=== PATIENT | female | born 1950 | race Caucasian/White ===

== ENCOUNTER 2019-02-11 10:25 | Emergency (ER) | payer MEDICARE, OTHER ==
[~2019-02-11] VITALS: Ht 160 cm; Wt 81.7 kg
--- OUTSIDE RECORDS SUMMARY | ~2019-02-11 | XMS | Encounter Summary ---
Demographics + + + | Address | [address] | | | [place] [address] | + + + | Home Phone | | + + + | Preferred Language | Unknown | + + + | Marital Status | | + + + | Congregational Affiliation | CAT | + + + | Race | White | + + + | Ethnic Group | Not or | + + + Author + + + | Author | [facility] | + + + | Organization | [facility] | + + + | Address | Unknown | + + + | Phone | Unavailable | + + + Support + + + + + | Name | Relationship | Address | Phone | + + + + + | Roxana Bo | ECON | [address] | | | | | [place] | | | | | [address] | | + + + + + Care Team Providers + +------+ + | Care Guide Tour Name | Role | Phone | + +------+ + | Ventura Carrasquillo MD | PCP | | + +------+ + Reason for Visit + + + | Reason | Comments | + + + | Follow-up visit | | + + + Encounter Details +--------+---------+ + + + | Date | Type | Department | Care Team | Description | +--------+---------+ + + + | 01/30/ | Office | Digestive Health | Lake Ontiveros MD | Autoimmune hepatitis | | 2013 | Visit | Center at [facility] [address] | [address] | (HCC) (Primary Dx); | | | | [address] | [facility] [place] | Primary biliary | | | | Mailcode: OC8D | [address] | cirrhosis (HCC) | | | | [facility] | [phone] | | | | | and Healing, | | | | | | [address] | | | | | | [place], [place] | | | | | | [address] | | | | | | [phone] | | | +--------+---------+ + + + Social History + +-------+ [...] + + documented as of this encounter Last Filed Vital Signs + + + + + | Vital Sign | Reading | Time Taken | Comments | + + + + + | Blood Pressure | 167/90 | 01/30/2014 1:07 PM | | | | | PDT | | + + + + + | Pulse | 76 | 01/30/2014 1:07 PM | | | | | PDT | | + + + + + | Temperature | 36.7 C (98.1 F) | 01/30/2014 1:07 PM | | | | | PDT | | + + + + + | Respiratory Rate | 17 | 01/30/2014 1:07 PM | | | | | PDT | | + + + + + | Oxygen Saturation | - | - | | + + + + + | Inhaled Oxygen | - | - | | | Concentration | | | | + + + + + | Weight | 74.5 kg (164 lb 4.8 | 01/30/2014 1:07 PM | | | | oz) | PDT | | + + + + + | Height | 160 cm (5' 3") | 01/30/2014 1:07 PM | | | | | PDT | | + + + + + | Body Mass Index | 29.1 | 01/30/2014 1:07 PM | | | | | PDT | | + + + + + documented in this encounter Progress Notes Lake Ontiverso MD - 01/30/2014 1:04 PM PDTFormatting of this note might be different from bharat power. HEPATOLOGY FOLLOW UP VISIT Diagnoses: 1. 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 LYDIA at 1:320 and AMA 1:1280 1.2. Viral serologies are all negative. 1.3. Liver biopsy more predominantly autoimmune hepatitis vs. PBC. No fibrosis. Mild steato sis 1.4 Now on Ursodiol 900mg a day and Imuran 50mg a day with normalization of liver tests 2. Obesity. 3. Labile hypertension. 4. Possible mild hyperlipidemia. 5. Joint complaints. 6. Hysterectomy, sinus surgery, and dental implant. Current Outpatient Prescriptions Medication Sig alendronate-vitamin D 70-2,800 mg-unit Oral Tablet Take 1 Tab by mouth every seven days . azaTHIOprine 50 mg oral tablet Take 1 tablet by mouth once daily. Administer after meal s. cephALEXin 500 mg Oral capsule Take 4 caps by mouth prior to procedure. csqzsavgenqb-gwrktmm-hdhacem-folic acid chewable 200-0.4 mg Oral Tablet, Chewable Take 2 Tabs by mouth once daily. hhyiyyeecstk-vnlnexd-pdyh-lutein (CENTRUM SILVER ULTRA WOMEN'S) Oral Tablet Take 1 Tab by mouth once daily. Boston-3 Fatty Acids-Vitamin E (FISH OIL) 1,000 mg Oral capsule Take 2 Caps by mouth onc e daily. ursodiol 300 mg oral capsule Take 3 capsules by mouth once daily at bedtime. No current facility-administered medications for this visit. Allergy: No Known Allergies Subjective: Ms. Bo is seen in Hepatology clinic for follow up of Autoimmune Hepatitis and Primary Biliary Cirrhosis. She states that her current symptoms are fatigue. She denies fluid accumulation in feet/ankles, fluid accumulation in abdomen, blood in bowel movements or black tarry bm's and memory or concentration changes. Review of Systems: All other systems negative. Social History: Currently smoking: no Current alcohol use: no Currently employed: yes Good social support: yes Objective: BP 167/90 | Pulse 76 | Temp (Src) 36.7 C (98.1 F) (Oral) | RR 17 | Ht 1.6 m (5' 3") | W t 74.526 kg (164 lb 4.8 oz) | BMI 29.11 kg/(m^2) General: Alert, NAD. HEENT: No muscle wasting, sclerae anicteric. Respiration: Normal CTAB, and good air exchange. Cardiac: Regular rate and rhythm. Abdomen: Soft, non-distended, normal bowel sounds, no hepatosplenomegaly, no fluid wave, no other masses noted. Neuro: Normal, alert with no asterixis. Psych: Normal speech pattern and thought process linear. Extremities: Normal, no edema, or skin discolorations. Skin: Warm and dry without rashes, lesions or spider hemangomota. Laboratory Data: Recent Labs 07/01/13 0941 10/04/13 1044 01/04/14 0945 NA 142 142 139 CR 0.84 0.86 0.77 AST 16 22 20 ALT 8 11 13 TBILI 0.8 0.7 0.5 ALB 3.8 3.8 3.6 WBC 5.7 4.8 5.4 HB 14.6 14.7 14.2 PLT 36 373 342 Assessment/Plan: Doing well from a liver standpoint. No evidence of liver disease progression. On low dose I muran and ursodiol her liver tests continue to be normal. Plan 1) cont Imuran 50mg a day 2) reduce ursodiol to 600mg DAILY 3) m7xchlaq liver set, CBC, plts, diff, INR 4) RTC in 1 yr Counseling Time: I spent more than 25 minutes with the patient. Greater than 50% of the t alecia was spent in education and counseling the patient regarding management of medications an d associated toxicities.. LAKE ONTIVEROS MD documented in this encoun ter Plan of Treatment +--------+---------+ + + + | Date | Type | Specialty | Care Team | Description | +--------+---------+ + + + | 01/26/ | Office | Hepatology | Lake Ontiveros MD | | | 2020 | Visit | | [address] | | | | | | [place], [place] | | | | | | [address] | | | | | | [phone] | | | | | | | | +--------+---------+ + + + documented as of this encounter Visit Diagnoses + + | Diagnosis | + + | Autoimmune hepatitis (HCC) - Primary Autoimmune hepatitis | + + | Primary biliary cirrhosis (HCC) Biliary cirrhosis | + + documented in this encounter
--- OUTSIDE RECORDS SUMMARY | ~2019-02-11 | XMS | Encounter Summary ---
Demographics + + + | Address | [address] | | | [place] [address] | + + + | Home Phone | | + + + | Preferred Language | Unknown | + + + | Marital Status | | + + + | Catholic Affiliation | CAT | + + + | Race | White | + + + | Ethnic Group | Not or | + + + Author + + + | Author | [facility] | + + + | Organization | [facility] | + + + | Address | Unknown | + + + | Phone | Unavailable | + + + Support + + + + + | Name | Relationship | Address | Phone | + + + + + | Roxana Bo | ECON | [address] | | | | | [place] | | | | | [address] | | + + + + + Care Team Providers + +------+ + | Care Salary Manager Name | Role | Phone | + +------+ + | Ventura Carrasquillo MD | PCP | | + +------+ + Encounter Details +--------+ + + + + | Date | Type | Department | Care Team | Description | +--------+ + + + + | 09/08/ | MyChart | Digestive Health | Lake Dennis MD | RE: Test results | | 2018 | Encounter | Center at [facility] [address] | [address] | | | | | [address] | [place], [place] | | | | | Mailcode: OC8D | [address] | | | | | [facility] | [phone] | | | | | and Healing, | | | | | | [address] | | | | | | [place], [place] | | | | | | [address] | | | | | | [phone] | | | +--------+ + + + + Social History + +-------+ +--------+------+ | Tobacco Use | Types | Packs/Day | Years | Date | | | | | Used | | + +-------+ +--------+------+ | Never Smoker | | | | | + +-------+ +--------+------+ + +---+---+---+ | Smokeless Tobacco: | | | | | Never Used | | | | + +---+---+---+ + + +---------+ + | Alcohol Use [...] [address] | | | | | | [place], [place] | | | | | | [address] | | | | | | [phone] | | | | | | | | +--------+---------+ + + + documented as of this encounter Procedures + +--------+ + + + | Procedure Name | Priori | Date/Time | Associated Diagnosis | Comments | | | ty | | | | + +--------+ + + + | COMPLETE METABOLIC | Routin | 09/01/2017 | | Results for this | | SET | e | | | procedure are in the | | (NA,K,CL,CO2,BUN,CRE | | | | results section. | | AT,GLUC,CA,AST,ALT,B | | | | | | JONH TOTAL,ALK | | | | | | PHOS,ALB,PROT TOTAL) | | | | | + +--------+ + + + | CBC ONLY | Routin | 09/01/2017 | | Results for this | | | e | | | procedure are in the | | | | | | results section. | + +--------+ + + + documented in this encounter Results COMPLETE METABOLIC SET (NA,K,CL,CO2,BUN,CREAT,GLUC,CA,AST,ALT,BILI TOTAL,ALK PHOS,ALB,PROT TOTAL) (09/01/2017) + +---------+ + + + | Component | Value | Ref Range | Performed | Pathologist | | | | | At | Signature | + +---------+ + + + | GLUCOSE, | 79 | mg/dL | NON [facility] | | | PLASMA | | | LAB | | | (LAB) | | | | | + +---------+ + + + | BUN, PLASMA | 12 | mg/dL | NON [facility] | | | (LAB) | | | LAB | | + +---------+ + + + | CREATININE | 0.73 | mg/dL | NON [facility] | | | PLASMA | | | LAB | | | (LAB) | | | | | + +---------+ + + + | ALBUMIN, | 3.8 | g/dL | NON [facility] | | | PLASMA | | | LAB | | | (LAB) | | | | | + +---------+ + + + | BILIRUBIN | 0.7 | Transcutaneous | NON [facility] | | | TOTAL | | Bilirubinometer | LAB | | + +---------+ + + + | ALK PHOS | 176 (H) | U/L | NON [facility] | | | | | | LAB | | + +---------+ + + + | AST(SGOT) | 24 | U/L | NON [facility] | | | | | | LAB | | + +---------+ + + + | SODIUM, | 140 | mmol/L | NON [facility] | | | PLASMA | | | LAB | | | (LAB) | | | | | + +---------+ + + + | POTASSIUM, | 3.8 | mmol/L | NON [facility] | | | PLASMA | | | LAB | | | (LAB) | | | | | + +---------+ + + + | ALT (SGPT) | 13 | U/L | NON [facility] | | | | | | LAB | | + +---------+ + + + + + | Specimen | + + | Blood | + + + +---------+ + + | Performing | Address | City/State/Zipcode | Phone Number | | Organization | | | | + +---------+ + + | NON [facility] | | | | + +---------+ + + CBC ONLY (09/01/2017) + +-------+ + + + | Component | Value | Ref Range | Performed | Pathologist | | | | | At | Signature | + +-------+ + + + | WHITE CELL | 4.6 | K/cu mm | NON [facility] | | | COUNT | | | LAB | | + +-------+ + + + | RED CELL | 4.74 | M/cu mm | NON [facility] | | | COUNT | | | LAB | | + +-------+ + + + | HEMOGLOBIN | 14.4 | g/dL | NON [facility] | | | | | | LAB | | + +-------+ + + + | HEMATOCRIT | 43.6 | % | NON [facility] | | | | | | LAB | | + +-------+ + + + | PLATELET | 348 | K/cu mm | NON [facility] | | | COUNT | | | LAB | | + +-------+ + + + + + | Specimen | + + | Blood | + + + +---------+ + + | Performing | Address | City/State/Zipcode | Phone Number | | Organization | | | | + +---------+ + + | NON [facility] | | | | + +---------+ + + documented in this encounter Visit Diagnoses Not on filedocumented in this encounter"
--- OUTSIDE RECORDS SUMMARY | ~2019-02-11 | XMS | Encounter Summary ---
Demographics + + + | Address | [address] | | | [place] [address] | + + + | Home Phone | | + + + | Preferred Language | Unknown | + + + | Marital Status | | + + + | Restorationism Affiliation | CAT | + + + | Race | White | + + + | Ethnic Group | Not or | + + + Author + + + | Author | [facility] | + + + | Organization | [facility] | + + + | Address | Unknown | + + + | Phone | Unavailable | + + + Support + + + + + | Name | Relationship | Address | Phone | + + + + + | Roxana Bo | ECON | [address] | | | | | [place] | | | | | [address] | | + + + + + Care Team Providers + +------+ + | Care Engineer Remote Control Diesel Name | Role | Phone | + +------+ + | Ventura Carrasquillo MD | PCP | | + +------+ + Encounter Details +--------+ + + + + | Date | Type | Department | Care Team | Description | +--------+ + + + + | 01/16/ | MyChart | Digestive Health | Lake Dennis MD | RE: Medication | | 2014 | Encounter | [place] [address] [address] | [address] | Inquiry | | | [address] | [place], [place] | | | | | Mailcode: OC8D | [address] | | | | | [facility] | [phone] | | | | | and Healing, | | | | | | [address] | | | | | | [place], [place] | | | | | | [address] | | | | | | [phone] | | | +--------+ + + + [...] [address] | | | | | | [place] | | | | | | [address] | | | | | | [phone] | | | | | | | | +--------+---------+ + + + documented as of this encounter Visit Diagnoses Not on filedocumented in this encounter"
--- OUTSIDE RECORDS SUMMARY | ~2019-02-11 | XMS | Encounter Summary ---
Demographics + + + | Address | [address] | | | [place] [address] | + + + | Home Phone | | + + + | Preferred Language | Unknown | + + + | Marital Status | | + + + | Orthodox Affiliation | CAT | + + + | Race | White | + + + | Ethnic Group | Not or | + + + Author + + + | Author | [facility] | + + + | Organization | [facility] | + + + | Address | Unknown | + + + | Phone | Unavailable | + + + Support + + + + + | Name | Relationship | Address | Phone | + + + + + | Roxana Bo | ECON | [address] | | | | | [place] | | | | | [address] | | + + + + + Care Team Providers + +------+ + | Care Machine Wedger Name | Role | Phone | + +------+ + | Ventura Carrasquillo MD | PCP | | + +------+ + Encounter Details +--------+ + + + + | Date | Type | Department | Care Team | Description | +--------+ + + + + | 11/14/ | MyChart | Digestive Health | Lake Dennis MD | RE: Request for Info | | 2013 | Encounter | Center at [facility] [address] | [address] | | | | | [address] | [place], [place] | | | | | Mailcode: OC8D | [address] | | | | | [facility] | [phone] | | | | | and Healing, | | | | | | [address] | | | | | | [place], [place] | | | | | | [address] | | | | | | [phone] | | | +--------+ + + + [...] [address] | | | | | | [place] | | | | | | [address] | | | | | | [phone] | | | | | | | | +--------+---------+ + + + documented as of this encounter Visit Diagnoses Not on filedocumented in this encounter"
--- OUTSIDE RECORDS SUMMARY | ~2019-02-11 | XMS | Encounter Summary ---
Demographics + + + | Address | [address] | | | [place] [address] | + + + | Home Phone | | + + + | Preferred Language | Unknown | + + + | Marital Status | | + + + | Scientologist Affiliation | CAT | + + + | Race | White | + + + | Ethnic Group | Not or | + + + Author + + + | Author | [facility] | + + + | Organization | [facility] | + + + | Address | Unknown | + + + | Phone | Unavailable | + + + Support + + + + + | Name | Relationship | Address | Phone | + + + + + | Roxana Bo | ECON | [address] | | | | | [place] | | | | | [address] | | + + + + + Care Team Providers + +------+ + | Care Processor Inspector Name | Role | Phone | + [...] | 2019 | Encounter | Center at [facility] [address] | [address] | | | | | [address] | [place], [place] | | | | | Mailcode: OC8D | [address] | | | | | [facility] | [phone] | | | | | and [place], | | | | | | [address] | | | | | | [place], [place] | | | | | | [address] | | | | | | [phone] | | | +--------+ + + + [...] | | 2019 | Visit | | [address] | | | | | | [place], [place] | | | | | | [address] | | | | | | [phone] | | | | | | | | +--------+---------+ + + + documented as of this encounter Visit Diagnoses Not on filedocumented in this encounter"
--- OUTSIDE RECORDS SUMMARY | ~2019-02-11 | XMS | Encounter Summary ---
Demographics + + + | Address | [address] | | | [place] [address] | + + + | Home Phone | | + + + | Preferred Language | Unknown | + + + | Marital Status | | + + + | Taoist Affiliation | CAT | + + + | Race | White | + + + | Ethnic Group | Not or | + + + Author + + + | Author | [facility] | + + + | Organization | [facility] | + + + | Address | Unknown | + + + | Phone | Unavailable | + + + Support + + + + + | Name | Relationship | Address | Phone | + + + + + | Roxana Bo | ECON | [address] | | | | | [place] | | | | | [address] | | + + + + + Care Team Providers + +------+ + | Care Cocoa Press Operator Name | Role | Phone | + +------+ + | Ventura Carrasquillo MD | PCP | | + +------+ + Reason for Visit + + + | Reason | Comments | + + + | Refill Request | ursodiol | + + + Encounter Details +--------+--------+ + + + | Date | Type | Department | Care Team | Description | +--------+--------+ + + + | 03/25/ | Refill | Digestive Health | Lake Dennis MD | Refill Request | | 2010 | | [place] [phone] | [address] | (ursodiol) | | | | [address] | [place], [place] | | | | | Mailcode: OC8D | [address] | | | | | [facility] | [phone] | | | | | and Healing, | | | | | | [address] | | | | | | [place], [place] | | | | | | [address] | | | | | | [phone] | | | +--------+--------+ + + + [...] [address] | | | | | | [place], [place] | | | | | | [address] | | | | | | [phone] | | | | | | | | +--------+---------+ + + + documented as of this encounter Visit Diagnoses Not on filedocumented in this encounter"
--- OUTSIDE RECORDS SUMMARY | ~2019-02-11 | XMS | Encounter Summary ---
Demographics + + + | Address | [address] | | | [place] [address] | + + + | Home Phone | | + + + | Preferred Language | Unknown | + + + | Marital Status | | + + + | Sabianism Affiliation | CAT | + + + | Race | White | + + + | Ethnic Group | Not or | + + + Author + + + | Author | [facility] | + + + | Organization | [facility] | + + + | Address | Unknown | + + + | Phone | Unavailable | + + + Support + + + + + | Name | Relationship | Address | Phone | + + + + + | Roxana Bo | ECON | [address] | | | | | [place] | | | | | [address] | | + + + + + Care Team Providers + +------+ + | Care Control Systems Technician Name | Role | Phone | + +------+ + | Ventura Carrasquillo MD | PCP | | + +------+ + Reason for Visit + + + | Reason | Comments | + + + | Blood Test Results | | + + + Encounter Details +--------+ + + + + | Date | Type | Department | Care Team | Description | +--------+ + + + + | 01/07/ | Documentati | Digestive Health | Lake Dennis MD | Blood Test Results | | 2017 | on | Center at [facility] [address] | [address] | | | | | [address] | [place], [place] | | | | | Mailcode: OC8D | [address] | | | | | [facility] | [phone] | | | | | and Healing, | | | | | | [address] | | | | | | [place], [place] | | | | | | [address] | | | | | | [phone] | | | +--------+ + + + [...] | 2019 | Visit | | [address] | | | | | | [place], [place] | | | | | | [address] | | | | | | [phone] | | | | | | | | +--------+---------+ + + + documented as of this encounter Procedures + +--------+ + + + | Procedure Name | Priori | Date/Time | Associated Diagnosis | Comments | | | ty | | | | + +--------+ + + + | COMPLETE METABOLIC | Routin | 01/01/2017 | | Results for this | | SET | e | | | procedure are in the | | (NA,K,CL,CO2,BUN,CRE | | | | results section. | | AT,GLUC,CA,AST,ALT,B | | | | | | JONH TOTAL,ALK | | | | | | PHOS,ALB,PROT TOTAL) | | | | | + +--------+ + + + | CBC ONLY | Routin | 01/01/2017 | | Results for this | | | e | | | procedure are in the | | | | | | results section. | + +--------+ + + + documented in this encounter Results COMPLETE METABOLIC SET (NA,K,CL,CO2,BUN,CREAT,GLUC,CA,AST,ALT,BILI TOTAL,ALK PHOS,ALB,PROT TOTAL) (01/01/2017) + +---------+ + + + | Component | Value | Ref Range | Performed | Pathologist | | | | | At | Signature | + +---------+ + + + | TOTAL | 7.1 | g/dL | [facility] | | | PROTEIN, | | | LAB - | | | PLASMA | | | [place] | | | (LAB) | | | | | + +---------+ + + + | ALBUMIN, | 3.6 | g/dL | [facility] | | | PLASMA | | | LAB - | | | (LAB) | | | [place] | | + +---------+ + + + | BILIRUBIN | 0.6 | Transcutaneous | [facility] | | | TOTAL | | Bilirubinometer | LAB - | | | | | | [place] | | + +---------+ + + + | ALK PHOS | 153 (H) | U/L | [facility] | | | | | | LAB - | | | | | | [place] | | + +---------+ + + + | AST(SGOT) | 20 [...] +---------+ + + + | BILIRUBIN | 0.1 | mg/dL | [facility] | | | DIRECT | | | LAB - | | | | | | [place] | | + +---------+ + + + + + | Specimen | + + | Blood | + + + + + + + | Performing | Address | City/State/Zipcode | Phone Number | | Organization | | | | + + + + + | [facility] - | [address] | [place], [place] | [phone] | | [place] | | | | + + + + + CBC ONLY (01/01/2017) + +-------+ + + + | Component | Value | Ref Range | Performed | Pathologist | | | | | At | Signature | + +-------+ + + + | WHITE CELL | 5.2 | K/cu mm | [facility] | | | COUNT | | | LAB - | | | | | | [place] | | + +-------+ + + + | RED CELL | 4.60 | M/cu mm | [facility] | | | COUNT | | | LAB - | | | | | | [place] | | + +-------+ + + + | HEMOGLOBIN | 13.8 | g/dL | [facility] | | | | | | LAB - | | | | | | [place] | | + +-------+ + + + | HEMATOCRIT | 42.0 | % | [facility] | | | | | | LAB - | | | | | | [place] | | + +-------+ + + + | PLATELET | 357 | K/cu mm | [facility] | | | COUNT | | | LAB - | | | | | | [place] | | + +-------+ + + + + + | Specimen | + + | Blood | + + + + + + + | Performing | Address | City/State/Zipcode | Phone Number | | Organization | | | | + + + + + | [facility] - | [address] | [place] | [phone] | | [place] | | | | + + + + + documented in this encounter Visit Diagnoses Not on filedocumented in this encounter"
--- OUTSIDE RECORDS SUMMARY | ~2019-02-11 | XMS | Encounter Summary ---
Demographics + + + | Address | [address] | | | [place] [address] | + + + | Home Phone | | + + + | Preferred Language | Unknown | + + + | Marital Status | | + + + | Protestant Affiliation | CAT | + + + | Race | White | + + + | Ethnic Group | Not or | + + + Author + + + | Author | [facility] | + + + | Organization | [facility] | + + + | Address | Unknown | + + + | Phone | Unavailable | + + + Support + + + + + | Name | Relationship | Address | Phone | + + + + + | Roxana Bo | ECON | [address] | | | | | [place] | | | | | [address] | | + + + + + Care Team Providers + +------+ + | Care Rn Corrections Name | Role | Phone | + +------+ + | Ventura Carrasquillo MD | PCP | | + +------+ + Reason for Visit + + + | Reason | Comments | + + + | Lab findings, | add'l questions | | teaching, guidance, | | | and counseling | | + + + Encounter Details +--------+ + + + + | Date | Type | Department | Care Team | Description | +--------+ + + + + | 02/28/ | Telephone | Digestive Health | Lake Dennis MD | Lab findings, | | 2008 | | [place] [address] [address] | [address] | teaching, guidance, | | | | [address] | [place], [place] | and counseling | | | | Mailcode: OC8D | [phone] | (add'l questions ) | | | | [facility] | [phone] | | | | | and Healing, | | | | | | [address] | | | | | | [place], [place] | | | | | | [address] | | | | | | [phone] | | | +--------+ + + + [...] [address] | | | | | | [place], [place] | | | | | | [address] | | | | | | [phone] | | | | | | | | +--------+---------+ + + + documented as of this encounter Visit Diagnoses Not on filedocumented in this encounter"
--- OUTSIDE RECORDS SUMMARY | ~2019-02-11 | XMS | Encounter Summary ---
Demographics + + + | Address | [address] | | | [place] [address] | + + + | Home Phone | | + + + | Preferred Language | Unknown | + + + | Marital Status | | + + + | Hoahaoism Affiliation | CAT | + + + | Race | White | + + + | Ethnic Group | Not or | + + + Author + + + | Author | [facility] | + + + | Organization | [facility] | + + + | Address | Unknown | + + + | Phone | Unavailable | + + + Support + + + + + | Name | Relationship | Address | Phone | + + + + + | Roxana Bo | ECON | [address] | | | | | [place] | | | | | [address] | | + + + + + Care Team Providers + +------+ + | Care Netbackup Admin Name | Role | Phone | + +------+ + | Ventura Carrasquillo MD | PCP | | + +------+ + Encounter Details +--------+ + + + + | Date | Type | Department | Care Team | Description | +--------+ + + + + | 12/13/ | MyChart | Dig[facility]ive [facility] | Lake Dennis MD | RE: Prescription | | 2014 | Encounter | Center at [facility] [address] | [address] | info | | | | [address] | [place], [place] | | | | | Mailcode: OC8D | [address] | | | | | [place] [facility] | [phone] | | | | | and Healing, | | | | | | [address] | | | | | | [place], [place] | | | | | | [address] | | | | | | [phone] | | | +--------+ + + + [...] | 2020 | Visit | | [address] | | | | | | [place] | | | | | | [address] | | | | | | [phone] | | | | | | | | +--------+---------+ + + + documented as of this encounter Visit Diagnoses Not on filedocumented in this encounter"
--- OUTSIDE RECORDS SUMMARY | ~2019-02-11 | XMS | Encounter Summary ---
Demographics + + + | Address | [address] | | | [place] [address] | + + + | Home Phone | | + + + | Preferred Language | Unknown | + + + | Marital Status | | + + + | Caodaism Affiliation | CAT | + + + | Race | White | + + + | Ethnic Group | Not or | + + + Author + + + | Author | [facility] | + + + | Organization | [facility] | + + + | Address | Unknown | + + + | Phone | Unavailable | + + + Support + + + + + | Name | Relationship | Address | Phone | + + + + + | Roxana Bo | ECON | [address] | | | | | [place] | | | | | [address] | | + + + + + Care Team Providers + +------+ + | Care Coach Driver Name | Role | Phone | + +------+ + | Ventura Carrasquillo MD | PCP | | + +------+ + Reason for Visit + + + | Reason | Comments | + + + | Medical Records | C - OUTSIDE LAB: AST, alkaline, bilirubin, protein, albumin, | | Review | ALT, CBC 04/03/2014 | + + + Encounter Details +--------+ + + + + | Date | Type | Department | Care Team | Description | +--------+ + + + + | 04/06/ | Abstract | Dig[facility]ive Health | Lake Dennis MD | Medical Records | | 2013 | | [place] [address] [address] | [address] | Review ([facility] - | | | | [address] | [place], [place] | OUTSIDE LAB: AST, | | | | Mailcode: OC8D | [id number] | alkaline, bilirubin, | | | | [facility] | [phone] | protein, albumin, | | | | and Healing, | | ALT, CBC 04/03/2014) | | | | [address] | | | | | | [place], [place] | | | | | | [address] | | | | | | [phone] | | | +--------+ + + + [...] [address] | | | | | | [place], [place] | | | | | | [address] | | | | | | [phone] | | | | | | | | +--------+---------+ + + + documented as of this encounter Visit Diagnoses Not on filedocumented in this encounter"
--- OUTSIDE RECORDS SUMMARY | ~2019-02-11 | XMS | Encounter Summary ---
Demographics + + + | Address | [address] | | | [place] [address] | + + + | Home Phone [...] + | Roxana Bo | ECON | [address] | | | | | [place] | | | | | [address] | | + + + + + Care Team Providers + +------+ + | Care Cellar Supervisor Name | Role | Phone | + +------+ + | Ventura Carrasquillo MD | PCP | | + +------+ + Encounter Details +--------+ + + + + | Date | Type | Department | Care Team | Description | +--------+ + + + + | 10/01/ | MyChart | Dig[facility]ive Health | Lake Dennis MD | RE: Test Results and | | 2017 | Encounter | Center at [facility] [address] | [address] | Prescription Update | | | | [address] | [place], [place] | | | | | Mailcode: OC8D | [id number] | | | | | [facility] | [phone] | | | | | and Healing, | | | | | | [address] | | | | | | [place], [place] | | | | | | [address] | | | | | | [phone] | | | +--------+ + + + [...] [address] | | | | | | [place] | | | | | | [address] | | | | | | [phone] | | | | | | | | +--------+---------+ + + + documented as of this encounter Visit Diagnoses Not on filedocumented in this encounter"
--- OUTSIDE RECORDS SUMMARY | ~2019-02-11 | XMS | Encounter Summary ---
Demographics + + + | Address | [address] | | | [place] [address] | + + + | Home Phone | | + + + | Preferred Language | Unknown | + + + | Marital Status | | + + + | Pentecostal Affiliation | CAT | + + + | Race | White | + + + | Ethnic Group | Not or | + + + Author + + + | Author | [facility] | + + + | Organization | [facility] | + + + | Address | Unknown | + + + | Phone | Unavailable | + + + Support + + + + + | Name | Relationship | Address | Phone | + + + + + | Roxana Bo | ECON | [address] | | | | | [place] | | | | | [address] | | + + + + + Care Team Providers + +------+ + | Care Automobile Radiator Mechanic Name | Role | Phone | + +------+ + | No Pcp Per Patient | PCP | Unavailable | + +------+ + Reason for Visit + + + | Reason | Comments | + + + | Blood Test Results | Outside [facility] from [facility] 09/03/15 | + + + Encounter Details +--------+ + + + + | Date | Type | Department | Care Team | Description | +--------+ + + + + | 10/04/ | Documentati | Digestive Health | Lake Dennis MD | Blood Test Results | | 2016 | on | Center at [facility] [address] | [address] | (Outside Labs from | | | | [address] | [place], [place] | [facility] | | | | Mailcode: OC8D | [id number] | 09/03/15) | | | | [facility] | [phone] | | | | | and Healing, | | | | | | [address] | | | | | | [place], [place] | | | | | | [address] | | | | | | [phone] | | | +--------+ + + + [...] [address] | | | | | | [place], [place] | | | | | | [address] | | | | | | [phone] | | | | | | | | +--------+---------+ + + + documented as of this encounter Procedures + +--------+ + + + | Procedure Name | Priori | Date/Time | Associated Diagnosis | Comments | | | ty | | | | + +--------+ + + + | CBC, WITH | Routin | 09/03/2015 | | Results for this | | DIFFERENTIAL | e | 1:22 PM | | procedure are in the | | | | PDT | | results section. | + +--------+ + + + | LIVER SET | Routin | 09/03/2015 | | Results for this | | (AST,ALT,BILI | e | 1:22 PM | | procedure are in the | | TOTAL,BILI | | PDT | | results section. | | DIRECT,ALK | | | | | | PHOS,ALB,PROT TOTAL) | | | | | + +--------+ + + + documented in this encounter Results CBC, WITH DIFFERENTIAL (09/03/2015 1:22 PM PDT) + +-------+ + + + | Component | Value | Ref Range | Performed | Pathologist | | | | | At | Signature | + +-------+ + + + | WHITE CELL | 4.9 | K/cu mm | [facility] | | | COUNT | | | LAB - | | | | | | [place] | | + +-------+ + + + | HEMOGLOBIN | 14.5 | g/dL | [facility] | | | | | | LAB - | | | | | | [place] | | + +-------+ + + + | HEMATOCRIT | 43.9 | % | [facility] | | | | | | LAB - | | | | | | [place] | | + +-------+ + + + | PLATELET | 337 | K/cu mm | [facility] | | [...] - | [address] | [place] | [phone] | | [place] | | | | + + + + + LIVER SET (AST,ALT,BILI TOTAL,BILI DIRECT,ALK PHOS,ALB,PROT TOTAL) (09/03/2015 1:22 PM PDT ) + +---------+ + + + | Component [...] + + + | ALK PHOS | 145 (H) | U/L | [facility] | | | | | | LAB - | | | | | | [place] | | + +---------+ + + + | BILIRUBIN | 0.1 | mg/dL | [facility] | | | DIRECT | | | LAB - | | | | | | [place] | | + +---------+ + + + | ALBUMIN, | 4.0 | g/dL | [facility] | | | PLASMA | | | LAB - | | | (LAB) | | | [place] | | + +---------+ + + + | AST(SGOT) | 27 | U/L | [facility] | | | | | | LAB - | | | | | | [place] | | + +---------+ + + + | ALT (SGPT) | 19 | U/L | [facility] | | | [...] | + + + + + | [facility] | [address] | [place] | [phone] | | [place] | | | | + + + + + documented in this encounter Visit Diagnoses Not on filedocumented in this encounter"
--- OUTSIDE RECORDS SUMMARY | ~2019-02-11 | XMS | Encounter Summary ---
Demographics + + + | Address | [address] | | | [place] [address] | + + + | Home Phone | | + + + | Preferred Language | Unknown | + + + | Marital Status | | + + + | Yarsani Affiliation | CAT | + + + | Race | White | + + + | Ethnic Group | Not or | + + + Author + + + | Author | [facility] | + + + | Organization | [facility] | + + + | Address | Unknown | + + + | Phone | Unavailable | + + + Support + + + + + | Name | Relationship | Address | Phone | + + + + + | Roxana Bo | ECON | [address] | | | | | [place] | | | | | [address] | | + + + + + Care Team Providers + +------+ + | Care Evp And Chief Operating Officer Name | Role | Phone | + +------+ + | Ventura Carrasquillo MD | PCP | | + +------+ + Encounter Details +--------+ + + + + | Date | Type | Department | Care Team | Description | +--------+ + + + + | 01/11/ | MyChart | Dig[facility]ive Health | Lake Dennis MD | RE: Blood Test | | 2014 | Encounter | [place] at [facility] [address] | [address] | results | | | | [address] | [place], [place] | | | | | Mailcode: OC8D | [id number] | | | | | [place] [facility] | [phone] | | | | | and Healing, | | | | | | [address] | | | | | | [place], [place] | | | | | | [address] | | | | | | [phone] | | | +--------+ + + + [...] [address] | | | | | | [place], [place] | | | | | | [address] | | | | | | [phone] | | | | | | | | +--------+---------+ + + + documented as of this encounter Procedures + +--------+ + + + | Procedure Name | Priori | Date/Time | Associated Diagnosis | Comments | | | ty | | | | + +--------+ + + + | CBC, WITH | Routin | 01/02/2015 | | Results for this | | DIFFERENTIAL | e | 8:55 AM | | procedure are in the | | | | PDT | | results section. | + +--------+ + + + | LIVER SET | Routin | 01/02/2015 | | Results for this | | (AST,ALT,BILI | e | 8:55 AM | | procedure are in the | | TOTAL,BILI | | PDT | | results section. | | DIRECT,ALK | | | | | | PHOS,ALB,PROT TOTAL) | | | | | + +--------+ + + + documented in this encounter Results CBC, WITH DIFFERENTIAL (01/02/2015 8:55 AM PDT) + +---------+ + + + | Component | Value | Ref Range | Performed | Pathologist | | | | | At | Signature | + +---------+ + + + | WHITE CELL | 4.1 (L) | K/cu mm | [facility] | | | COUNT | | | LAB - | | | | | | [place] | | + +---------+ + + + | HEMOGLOBIN | 13.7 | g/dL | [facility] | | | | | | LAB - | | | | | | [place] | | + +---------+ + + + | HEMATOCRIT | 42.3 | % | [facility] | | | | | | LAB - | | | | | | [place] | | + +---------+ + + + | PLATELET | 324 [...] | [facility] - | [address] | [place], [place] | [phone] | | [place] | | | | + + + + + LIVER SET (AST,ALT,BILI TOTAL,BILI DIRECT,ALK PHOS,ALB,PROT TOTAL) (01/02/2015 8:55 AM PDT ) + +---------+ + + + [...] + + + | ALK PHOS | 138 (H) | U/L | [facility] | | | | | | LAB - | | | | | | [place] | | + +---------+ + + + | TOTAL | 6.9 | g/dL | [facility] | | | [...] + + + | ALT (SGPT) | 14 | U/L | [facility] | | | [...] | + + + + + | [facility] - | [address] | [place], [place] | [phone] | | [place] | | | | + + + + + documented in this encounter Visit Diagnoses Not on filedocumented in this encounter"
--- OUTSIDE RECORDS SUMMARY | ~2019-02-11 | XMS | Encounter Summary ---
Demographics + + + | Address | [address] | | | [place] [address] | + + + | Home Phone | | + + + | Preferred Language | Unknown | + + + | Marital Status | | + + + | Evangelical Affiliation | CAT | + + + [...] + | Roxana Bo | ECON | [address] | | | | | [place] | | | | | [address] | | + + + + + Care Team Providers + +------+ + | Care Malted Milk Mixer Name | Role | Phone | + +------+ + | Ventura Carrasquillo MD | PCP | | + +------+ + Encounter Details +--------+------+ + + + | Date | Type | Department | Care Team | Description | +--------+------+ + + + | 02/14/ | Lab | Laboratory at [facility] | | Nonspecific Abnormal | | 2008 | | [address] | | Results of Liver | | | | [place], [place] | | Function Study | | | | [address] | | | | | | [phone] | | | +--------+------+ + + + Social History + +-------+ [...] [place] | | | | | | [place], [place] | | | | | | [address] | | | | | | [phone] | | | | | | | | +--------+---------+ + + + documented as of this encounter Procedures + +--------+ + + + | Procedure Name | Priori | Date/Time | Associated Diagnosis | Comments | | | ty | | | | + +--------+ + + + | [facility] - COMPLETE | Routin | 02/14/2009 | Nonspecific | Results for this | | METABOLIC SET | e | 1:37 PM | Abnormal Results of | procedure are in the | | | | PDT | Liver Function Study | results section. | + +--------+ + + + | [facility] CBC W | Routin | 02/14/2009 | Nonspecific | Results for this | | DIFFERENTIAL | e | 1:37 PM | Abnormal Results of | procedure are in the | | | | PDT | Liver Function Study | results section. | + +--------+ + + + | [facility] - INR | Routin | 02/14/2009 | Nonspecific | Results for this | | (PROTHROMBINTIME) | e | 1:37 PM | Abnormal Results of | procedure are in the | | | | PDT | Liver Function Study | results section. | + +--------+ + + + | APT-LYDIA AB ON HEP 2, | Routin | 02/14/2009 | | Results for this | | SER | e | 1:37 PM | | procedure are in the | | | | PDT | | results section. | + +--------+ + + + | [id number],SER | Routin | 02/14/2009 | | Results for this | | UM | e | 1:37 PM | | procedure are in the | | | | PDT | | results section. | + +--------+ + + + | ANTI SMOOTH MUSCLE | Routin | 02/14/2009 | Nonspecific | Results for this | | AB, SERUM | e | 1:37 PM | Abnormal Results of | procedure are in the | | | | PDT | Liver Function Study | results section. | + +--------+ + + + | ANTI MITOCHONDRIAL | Routin | 02/14/2009 | | Results for this | | AB, SERUM | e | 1:37 PM | | procedure are in the | | | | PDT | | results section. | + +--------+ + + + | ANTI NUCLEAR AB | Routin | 02/14/2009 | Nonspecific | Results for this | | SCREEN, SERUM | e | 1:37 PM | Abnormal Results of | procedure are in the | | | | PDT | Liver Function Study | results section. | + +--------+ + + + | PROTEIN | Routin | 02/14/2009 | Nonspecific | Results for this | | ELECTROPHORESIS, | e | 1:37 PM | Abnormal Results of | procedure are in the | | SERUM, WITH REFLEX | | PDT | Liver Function Study | results section. | | TO IMMUNOFIXATION | | | | | + +--------+ + + + documented in this encounter Results ANTI MITOCHONDRIAL AB, SERUM (02/14/2009 1:37 PM PDT) + + + + + + | Component | Value | Ref Range | Performed | Pathologist | | | | | At | Signature | + + + + + + | ANTI-MITOCH | POSITIVE (A) | Negative | | | | ONDRIAL, | | | | | | SERUM | | | | | + + + + + + | AMA TITER | 1:1280 | Dil. | | | + + + + + + + + | Specimen | + + | | + + + + + | Narrative | Performed At | + + + | [facility] ([address] [facility]) | [facility] | | [facility] | DEPARTMENT OF | | [address] | PATHOLOGY | | [place] [address] | | + + + + + + + + | Performing | Address | City/State/Zipcode | Phone Number | | Organization | | | | + + + + + | [facility] | [address] | [place] [address] | | | PATHOLOGY | [address] | | | + + + + + APT-LYDIA AB ON HEP 2, SER (02/14/2009 1:37 PM PDT) + + + + + + | Component | Value | Ref Range | Performed | Pathologist | | | | | At | Signature | + + + + + + | LYDIA PATTERN | Speckled | | | | + + + + + + | LYDIA TITER | 1:320 | | | | + + + + + + + + | Specimen | + + | | + + + + + | Narrative | Performed At | + + + | New performing lab for Anti DNA Antibody and Anti | [facility] | | NDNA Ab Titer effective 07/11/08. [facility] ([facility] | DEPARTMENT OF | | Way Lab) [facility] | PATHOLOGY | | [address] [facility] | | | [place] [address] RLB | | | ([address] Lab) [facility] | | | [address] [facility] | | | [place] [address] | | + + + + + + + + | Performing | Address | City/State/Zipcode | Phone Number | | Organization | | | | + + + + + | [facility] | [address] | [place] [address] | | | PATHOLOGY | [address] | | | + + + + + [id number],SERUM (02/14/2009 1:37 PM PDT) + +-------+ + + + | Component | Value | Ref Range | Performed | Pathologist | | | | | At | Signature | + +-------+ + + + | TOTAL | 7.7 | 6.4 - 8.3 g/dL | | | | PROTEIN, | | | | | | SERUM - | | | | | | SPEP | | | | | + +-------+ + + + + + | Specimen | + + | | + + + + + | Narrative | Performed At | + + + | Protein Electrophoresis, Serum Reference | [facility] | | Range Change effective 05/30/08 [facility] ([facility] [facility] | DEPARTMENT OF | | Lab) [facility] [address] | PATHOLOGY | | [place] [address] | | | Reference Range Change effective 05/30/08 | | | [facility] ([facility]) [place] | | | [facility] [address] [facility] [facility] | | | [place] [address] | | + + + + + + + + | Performing | Address | City/State/Zipcode | Phone Number | | Organization | | | | + + + + + | [facility] | [address] | [place] [address] | | | PATHOLOGY | [address] | | | + + + + + PROTEIN ELECTROPHORESIS, SERUM (02/14/2009 1:37 PM PDT) + + + + + + | Component | Value | Ref Range | Performed | Pathologist | | | | | At | Signature | + + + + + + | ALBUMIN,SER | 3.72 | 3.40 - 5.20 | | | | UM - SPEP | | g/dL | | | + + + + + + | ALPHA-1, | 0.22 | 0.10 - 0.40 | | | | SERUM - | | g/dL | | | | SPEP | | | | | + + + + + + | ALPHA-2, | 0.83 | 0.50 - 0.90 | | | | SERUM - | | g/dL | | | | SPEP | | | | | + + + + + + | BETA, SERUM | 0.91 | 0.60 - 1.20 | | | | - SPEP | | g/dL | | | + + + + + + | GAMMA, | 2.03 (H) | 0.50 - 1.50 | | | | SERUM - | | g/dL | | | | SPEP | | | | | + + + + + + | ALBUMIN %, | 48.3 | % | | | | SPEP | | | | | + + + + + + | ALPHA-1 %, | 2.8 | % | | | | SPEP | | | | | + + + + + + | ALPHA-2 %, | 10.8 | % | | | | SPEP | | | | | + + + + + + | BETA % SPEP | 11.8 | % | | | + + + + + + | GAMMA %, | 26.3 | % | | | | SPEP | | | | | + + + + + + | SPEP | Broad elevation of Gamma | | | | | COMMENTS | Globulin Polyclonal | | | | | | Gamma elevation is seen | | | | | | in a variety of subacute | | | | | | chronic liverdiseases, | | | | | | infections, and | | | | | | auto-immune disorders. | | | | + + + + + + | ZULLY | Raquel Duron | | | | | REVIEWED | | | | | | BY: | | | | | + + + + + + + + | Specimen | + + | Blood - Blood | + + + + + | Narrative | Performed At | + + + | Protein Electrophoresis, Serum Reference | [facility] | | Range Change effective 05/30/08 [facility] ([facility] [facility] | DEPARTMENT OF | | Lab) [facility] [address] | PATHOLOGY | | [place] [address] | | + + + + + + + + | Performing | Address | City/State/Zipcode | Phone Number | | Organization | | | | + + + + + | [facility] DEPARTMENT OF | [address] | [place] [address] | | | PATHOLOGY | [address] | | | + + + + + ANTI NUCLEAR AB SCREEN, SERUM (02/14/2009 1:37 PM PDT) + + + + + + | Component | Value | Ref Range | Performed | Pathologist | | | | | At | Signature | + + + + + + | LYDIA SCREEN | POSITIVE | Negative | | | | ON HEP | | | | | | 2,SERUM | | | | | + + + + + + + + | Specimen | + + | Blood - Blood | + + + + + | Narrative | Performed At | + + + | New performing lab for Anti DNA Antibody and Anti | [facility] | | NDNA Ab Titer effective 07/11/08. RLB (Airport | DEPARTMENT OF | | Way Lab) [facility] | PATHOLOGY | | [address] | | | [place] [address] RLB | | | ([address] Lab) [facility] | | | [address] | | | [place] [address] | | + + + + + + + + | Performing | Address | City/State/Zipcode | Phone Number | | Organization | | | | + + + + + | [facility] DEPARTMENT OF | [address] | [place] [address] | | | PATHOLOGY | [address] | | | + + + + + ANTI SMOOTH MUSCLE AB, SERUM (02/14/2009 1:37 PM PDT) + + + + + + | Component | Value | Ref Range | Performed | Pathologist | | | | | At | Signature | + + + + + + | ANTI-SMOOTH | Neg (1:20 dil) | Negative | | | | MUSCLE | | | | | + + + + + + + + | Specimen | + + | Blood - Blood | + + + + + | Narrative | Performed At | + + + | R[facility] ([address] [facility]) [place] | [place] | | [facility] [place] [place] [address] [facility] | DEPARTMENT OF | | [place] [address] | PATHOLOGY | + + + + + + + + | Performing | Address | City/State/Zipcode | Phone Number | | Organization | | | | + + + + + | [facility] DEPARTMENT OF | [address] | [place] [address] | | | PATHOLOGY | [address] | | | + + + + + [facility] - INR (PROTHROMBINTIME) (02/14/2009 1:37 PM PDT) + + + + + + | Component | Value | Ref Range | Performed | Pathologist | | | | | At | Signature | + + + + + + | INR-[facility] | 1.00Comment: | 0.98 - 1.20 INR | [facility] | | | | PT INR | | DEPARTMENT | | | | Therapeutic ranges for | | OF | | | | full | | PATHOLOGY | | | | anticoagulation: | | | | | | INR for | | | | | | Venous | | | | | | Thromboembolism | | | | | | | | | | | | (2.0-3.0) INR | | | | | | INR for | | | | | | most patients with mech. | | | | | | | | | | | | valves (2.5-3.5) | | | | | | INR | | | | + + + + + + + + | Specimen | + + | Blood | + + + + + + + | Performing | Address | City/State/Zipcode | Phone Number | | Organization | | | | + + + + + | [facility] DEPARTMENT OF | [address] | [place] [address] | | | PATHOLOGY | [address] | | | + + + + + | [facility] | [address] | [place] [address] | | | PATHOLOGY | [address] | | | + + + + + JIMENA KENNEY (02/14/2009 1:37 PM PDT) + + + + + + | Component | Value | Ref Range | Performed | Pathologist | | | | | At | Signature | + + + + + + | WHITE CELL | 5.4 | 3.4 - 10.0 K/cu | [facility] | | | COUNT - [facility] | | mm | DEPARTMENT | | | | | | OF | | | | | | PATHOLOGY | | + + + + + + | RED CELL | 4.83 | 3.80 - 5.20 | [facility] | | | COUNT - [facility] | | M/cu mm | DEPARTMENT | | | | | | OF | | | | | | PATHOLOGY | | + + + + + + | HEMOGLOBIN, | 14.0 | 12.2 - 15.0 | [facility] | | | BLOOD - | | g/dL | DEPARTMENT | | | [facility] | | | OF | | | | | | PATHOLOGY | | + + + + + + | HEMATOCRIT | 43.3 | 37.0 - 46.5 % | [facility] | | | - [facility] | | | DEPARTMENT | | | | | | OF | | | | | | PATHOLOGY | | + + + + + + | MCV - [facility] | 89.7 | 85.0 - 95.0 fL | [facility] | | | | | | DEPARTMENT | | | | | | OF | | | | | | PATHOLOGY | | + + + + + + | MCH - [facility] | 29.0 | 29.0 - 32.0 pg | [facility] | | | | | | DEPARTMENT | | | | | | OF | | | | | | PATHOLOGY | | + + + + + + | MCHC - [facility] | 32.3 (L) | 32.6 - 33.9 | [facility] | | | | | g/dL | DEPARTMENT | | | | | | OF | | | | | | PATHOLOGY | | + + + + + + | RDW-[facility] | 15.5 (H) | 11.5 - 15.0 % | [facility] | | | | | | DEPARTMENT | | | | | | OF | | | | | | PATHOLOGY | | + + + + + + | PLATELET | 366 | 150 - 420 K/cu | [facility] | | | COUNT, | | mm | DEPARTMENT | | | BLOOD - [facility] | | | OF | | | | | | PATHOLOGY | | + + + + + + | MPV-[facility] | 8.6 | 7.4 - 10.4 fL | [facility] | | | | | | DEPARTMENT | | | | | | OF | | | | | | PATHOLOGY | | + + + + + + | NEUTROPHIL | 48 | 48 - 65 % | [facility] | | | (%) - [facility] | | | DEPARTMENT | | | | | | OF | | | | | | PATHOLOGY | | + + + + + + | LYMPHOCYTE | 40 | 26 - 41 % | [facility] | | | (%) - [facility] | | | DEPARTMENT | | | | | | OF | | | | | | PATHOLOGY | | + + + + + + | MID-RANGE | 12 | 7 - 15 % | [facility] | | | (%) - [facility] | | | DEPARTMENT | | | | | | OF | | | | | | PATHOLOGY | | + + + + + + | NEUTROPHIL | 2.6 | 2.2 - 5.2 K/cu | [facility] | | | ABSOLUTE - | | mm | DEPARTMENT | | | [facility] | | | OF | | | | | | PATHOLOGY | | + + + + + + | LYMPHOCYTE | 2.2 | 1.6 - 2.6 K/cu | [facility] | | | ABSOLUTE - | | mm | DEPARTMENT | | | [facility] | | | OF | | | | | | PATHOLOGY | | + + + + + + | MID-RANGE | 0.7 | <2.1 K/cu mm | [facility] | | | ABSOLUTE - | | | DEPARTMENT | | | CH[facility] | | | OF | | | | | | PATHOLOGY | | + + + + + + + + | Specimen | + + | Blood - Blood | + + + + + + + | Performing | Address | City/State/Zipcode | Phone Number | | Organization | | | | + + + + + | [facility] DEPARTMENT OF | [address] | [place] [address] | | | PATHOLOGY | [address] | | | + + + + + | [facility] DEPARTMENT OF | [address] | [place] [address] | | | PATHOLOGY | [address] | | | + + + + + [facility] - COMPLETE METABOLIC SET (02/14/2009 1:37 PM PDT) + +---------+ + + + | Component | Value | Ref Range | Performed | Pathologist | | | | | At | Signature | + +---------+ + + + | GLUCOSE-[facility] | 106 (H) | 60 - 99 mg/dL | [facility] | | | | | | DEPARTMENT | | | | | | OF | | | | | | PATHOLOGY | | + +---------+ + + + | UREA | 15 | 6 - 20 mg/dL | [facility] | | | NITROGEN-CH | | | DEPARTMENT | | | H | | | OF | | | | | | PATHOLOGY | | + +---------+ + + + | CREATININE- | 0.7 | 0.6 - 1.1 mg/dL | [facility] | | | [facility]H | | | DEPARTMENT | | | | | | OF | | | | | | PATHOLOGY | | + +---------+ + + + | PROTEIN, | 7.9 | 6.3 - 8.0 g/dL | [facility] | | | TOTAL-CHH | | | DEPARTMENT | | | | | | OF | | | | | | PATHOLOGY | | + +---------+ + + + | ALBUMIN-[facility] | 3.4 | 3.4 - 4.4 g/dL | [facility] | | | | | | DEPARTMENT | | | | | | OF | | | | | | PATHOLOGY | | + +---------+ + + + | CALCIUM-[facility] | 8.9 | 8.8 - 10.9 | [facility] | | | | | mg/dL | DEPARTMENT | | | | | | OF | | | | | | PATHOLOGY | | + +---------+ + + + | BILIRUBIN, | 0.6 | 0.3 - 1.2 mg/dL | [facility] | | | TOTAL-CHH | | | DEPARTMENT | | | | | | OF | | | | | | PATHOLOGY | | + +---------+ + + + | ALK | 340 (H) | 42 - 98 U/L | [facility] | | | PHOS-CHH | | | DEPARTMENT | | | | | | OF | | | | | | PATHOLOGY | | + +---------+ + + + | AST-[facility] | 69 (H) | 15 - 41 U/L | [facility] | | | | | | DEPARTMENT | | | | | | OF | | | | | | PATHOLOGY | | + +---------+ + + + | SODIUM-[facility] | 144 (H) | 133 - 141 | [facility] | | | | | mmol/L | DEPARTMENT | | | | | | OF | | | | | | PATHOLOGY | | + +---------+ + + + | POTASSIUM-C | 3.8 | 3.6 - 5.0 | [facility] | | | HH | | mmol/L | DEPARTMENT | | | | | | OF | | | | | | PATHOLOGY | | + +---------+ + + + | CHLORIDE-CH | 108 (H) | 97 - 104 mmol/L | [facility] | | | H | | | DEPARTMENT | | | | | | OF | | | | | | PATHOLOGY | | + +---------+ + + + | CO2 | 27 | 24 - 30 mmol/L | [facility] | | | TOTAL-CHH | | | DEPARTMENT | | | | | | OF | | | | | | PATHOLOGY | | + +---------+ + + + | ALT-[facility] | 46 | 13 - 48 U/L | [facility] | | | | | | DEPARTMENT | | | | | | OF | | | | | | PATHOLOGY | | + +---------+ + + + + + | Specimen | + + | Blood - Blood | + + + + + + + | Performing | Address | City/State/Zipcode | Phone Number | | Organization | | | | + + + + + | [facility] | [address] | [place] [address] | | | PATHOLOGY | [address] | | | + + + + + | [facility] | [facility] [address] | [place] [address] | | | PATHOLOGY | [address] | | | + + + + + documented in this encounter Visit Diagnoses + + | Diagnosis | + + | Nonspecific abnormal results of liver function study | + + documented in this encounter"
--- OUTSIDE RECORDS SUMMARY | ~2019-02-11 | XMS | Encounter Summary ---
Demographics + + + | Address | [address] | | | [place] [address] | + + + | Home Phone | | + + + | Preferred Language | Unknown | + + + | Marital Status | | + + + | Scientology Affiliation | CAT | + + + | Race | White | + + + | Ethnic Group | Not or | + + + Author + + + | Author | [facility] | + + + | Organization | [facility] | + + + | Address | Unknown | + + + | Phone | Unavailable | + + + Support + + + + + | Name | Relationship | Address | Phone | + + + + + | Roxana Bo | ECON | [address] | | | | | [place] | | | | | [address] | | + + + + + Care Team Providers + +------+ + | Care Logistics Intern Name | Role | Phone | + +------+ + | Ventura Carrasquillo MD | PCP | | + +------+ + Encounter Details +--------+ + + + + | Date | Type | Department | Care Team | Description | +--------+ + + + + | 03/25/ | Abstract | Digestive Health | Lake Dennis MD | | | 2010 | | [place] [address] [address] | [address] | | | | | [address] | [place], [place] | | | | | Mailcode: OC8D | [id number] | | | | | [place] [facility] | [phone] | | | | | and Healing, | | | | | | [address] | | | | | | [place], [place] | | | | | | [address] | | | | | | [phone] | | | +--------+ + + + [...] [place] | | | | | | [place] | | | | | | [address] | | | | | | [phone] | | | | | | | | +--------+---------+ + + + documented as of this encounter Visit Diagnoses Not on filedocumented in this encounter"
--- OUTSIDE RECORDS SUMMARY | ~2019-02-11 | XMS | Encounter Summary ---
Demographics + + + | Address | [address] | | | [place] [address] | + + + | Home Phone | | + + + | Preferred Language | Unknown | + + + | Marital Status | | + + + | Yazidism Affiliation | CAT | + + + | Race | White | + + + | Ethnic Group | Not or | + + + Author + + + | Author | [facility] | + + + | Organization | [facility] | + + + | Address | Unknown | + + + | Phone | Unavailable | + + + Support + + + + + | Name | Relationship | Address | Phone | + + + + + | Roxana Bo | ECON | [address] | | | | | [place] | | | | | [address] | | + + + + + Care Team Providers + +------+ + | Care Granular Operator Name | Role | Phone | + +------+ + | Ventura Carrasquillo MD | PCP | | + +------+ + Encounter Details +--------+ + + + + | Date | Type | Department | Care Team | Description | +--------+ + + + + | 03/09/ | MyChart | Digestive Health | Lake Dennis MD | RE: Prescription | | 2011 | Encounter | Center at [facility] [address] | [address] | re-fill | | | | [address] | [place], [place] | | | | | Mailcode: OC8D | [address] | | | | | [facility] | [phone] | | | | | and Healing, | | | | | | [address] | | | | | | [place], [place] | | | | | | [address] | | | | | | [phone] | | | +--------+ + + + [...] [place] | | | | | | [address] | | | | | | [phone] | | | | | | | | +--------+---------+ + + + documented as of this encounter Visit Diagnoses Not on filedocumented in this encounter"
--- OUTSIDE RECORDS SUMMARY | ~2019-02-11 | XMS | Encounter Summary ---
Demographics + + + | Address | [address] | | | [place] [address] | + + + | Home Phone | | + + + | Preferred Language | Unknown | + + + | Marital Status | | + + + | Sabianist Affiliation | CAT | + + + | Race | White | + + + | Ethnic Group | Not or | + + + Author + + + | Author | [facility] | + + + | Organization | [facility] | + + + | Address | Unknown | + + + | Phone | Unavailable | + + + Support + + + + + | Name | Relationship | Address | Phone | + + + + + | Roxana Bo | ECON | [address] | | | | | [place] | | | | | [address] | | + + + + + Care Team Providers + +------+ + | Care Cake Stripper Name | Role | Phone | + +------+ + | Ventura Carrasquillo MD | PCP | | + +------+ + Encounter Details +--------+ + + + + | Date | Type | Department | Care Team | Description | +--------+ + + + + | 01/05/ | Documentati | Digestive Health | Lake Dennis MD | | | 2019 | on | [place] [facility] [address] | [address] | | | | | [address] | [place], [place] | | | | | Mailcode: OC8D | [address] | | | | | [place] for [facility] | [phone] | | | | | and Healing, | | | | | | [address] | | | | | | [place], [place] | | | | | | [address] | | | | | | [phone] | | | +--------+ + + + [...] [place] | | | | | | [place], [place] | | | | | | [address] | | | | | | [phone] | | | | | | | | +--------+---------+ + + + documented as of this encounter Procedures + +--------+ + + + | Procedure Name | Priori | Date/Time | Associated Diagnosis | Comments | | | ty | | | | + +--------+ + + + | CBC, WITH | Routin | 01/04/2019 | | Results for this | | DIFFERENTIAL | e | 12:19 PM | | procedure are in the | | | | PDT | | results section. | + +--------+ + + + | COMPLETE METABOLIC | Routin | 01/04/2019 | | Results for this | | SET | e | 12:19 PM | | procedure are in the | | (NA,K,CL,CO2,BUN,CRE | | PDT | | results section. | | AT,GLUC,CA,AST,ALT,B | | | | | | JONH TOTAL,ALK | | | | | | PHOS,ALB,PROT TOTAL) | | | | | + +--------+ + + + documented in this encounter Results COMPLETE METABOLIC SET (NA,K,CL,CO2,BUN,CREAT,GLUC,CA,AST,ALT,BILI TOTAL,ALK PHOS,ALB,PROT TOTAL) (01/04/2019 12:19 PM PDT) + +---------+ + + + [...] + + + | BUN, PLASMA | 19 | mg/dL | [facility] | | | (LAB) | | | LAB - | | | | | | [place] | | + +---------+ + + + | CREATININE | 0.86 [...] +---------+ + + + | BILIRUBIN | 0.8 | Transcutaneous | [facility] | | | TOTAL | | Bilirubinometer | LAB - | | | | | | [place] | | + +---------+ + + + | ALK PHOS | 172 (H) | U/L | [facility] | | | | | | LAB - | | | | | | [place] | | + +---------+ + + + | AST(SGOT) | 23 | U/L | [facility] | | | | | | LAB - | | | | | | [place] | | + +---------+ + + + | SODIUM, | 141 | mmol/L | [facility] | | | PLASMA | | | LAB - | | | (LAB) | | | [place] | | + +---------+ + + + | POTASSIUM, | 3.7 | mmol/L | [facility] | | | PLASMA | | | LAB - | | | (LAB) | | | [place] | | + +---------+ + + + | ALT (SGPT) | 12 | U/L | [facility] | | | [...] | [facility] - | [address] | [place], [place] | [phone] | | [place] | | | | + + + + + CBC, WITH DIFFERENTIAL (01/04/2019 12:19 PM PDT) + +-------+ + + + [...] +-------+ + + + | HEMOGLOBIN | 14 | g/dL | [facility] | | | | | | LAB - | | | | | | [place] | | + +-------+ + + + | HEMATOCRIT | 41.9 | % | [facility] | | | | | | LAB - | | | | | | [place] | | + +-------+ + + + | PLATELET | 340 | K/cu mm | [facility] | | [...] + + | [facility] - | [address] | [place] | [phone] | | [place] | | | | + + + + + documented in this encounter Visit Diagnoses Not on filedocumented in this encounter"
--- OUTSIDE RECORDS SUMMARY | ~2019-02-11 | XMS | Encounter Summary ---
Demographics + + + | Address | [address] | | | [place] [address] | + + + | Home Phone | | + + + | Preferred Language | Unknown | + + + | Marital Status | | + + + | Quaker Affiliation | CAT | + + + [...] + | Roxana Bo | ECON | [address] | | | | | [place] | | | | | [address] | | + + + + + Care Team Providers + +------+ + | Care Patcher Wood Welder Name | Role | Phone | + +------+ + | Ventura Carrasquillo MD | PCP | | + +------+ + Reason for Visit + + + | Reason | Comments | + + + | Blood Test Results | 05/21/09, 04/19/09 [facility]/ | + + + Encounter Details +--------+ + + + + | Date | Type | Department | Care Team | Description | +--------+ + + + + | 05/29/ | Documentati | Digestive Health | Lake Dennis MD | Blood Test Results | | 2009 | on | Center at [facility] [address] | [address] | (05/21/09, 04/19/09 | | | | [address] | [place], [place] | [facility]/ Ph# | | | | Mailcode: [id number] | [id number] | [phone]) | | | | [facility] | [phone] | | | | | and Healing, | | | | | | [address] | | | | | | [place], [place] | | | | | | [address] | | | | | | [phone] | | | +--------+ + + + [...] [address] | | | | | | [place], [place] | | | | | | [address] | | | | | | [phone] | | | | | | | | +--------+---------+ + + + documented as of this encounter Procedures + +--------+ + + + | Procedure Name | Priori | Date/Time | Associated Diagnosis | Comments | | | ty | | | | + +--------+ + + + | CBC, WITH | Routin | 05/22/2009 | | Results for this | | DIFFERENTIAL | e | | | procedure are in the | | | | | | results section. | + +--------+ + + + | COMPLETE METABOLIC | Routin | 05/22/2009 | | Results for this | | SET | e | | | procedure are in the | | (NA,K,CL,CO2,BUN,CRE | | | | results section. | | AT,GLUC,CA,AST,ALT,B | | | | | | JONH TOTAL,ALK | | | | | | PHOS,ALB,PROT TOTAL) | | | | | + +--------+ + + + | COMPLETE METABOLIC | Routin | 04/19/2009 | | Results for this | | [...] COMPLETE METABOLIC SET (NA,K,CL,CO2,BUN,CREAT,GLUC,CA,AST,ALT,BILI TOTAL,ALK PHOS,ALB,PROT TOTAL) (05/22/2009) + +---------+ + + + | Component [...] +---------+ + + + | CREATININE | 0.83 | mg/dL | [facility] | | | [...] +---------+ + + + | ALBUMIN, | | g/dL | [facility] | | [...] + + + | ALK PHOS | 162 (H) | U/L | [facility] | | | | | | LAB - | | | | | | [place] | | + +---------+ + + + | AST(SGOT) | 27 | U/L | [facility] | | | | | | LAB - | | | | | | [place] | | + +---------+ + + + | SODIUM, | 139 | mmol/L | [facility] | | | [...] + + + | ALT (SGPT) | 15 | U/L | [facility] | | | [...] + + | [facility] - | [address] | [place], [place] | [phone] | | [place] | | | | + + + + + | [facility] - | | [place], [place] | | | [place] | | | | + + + + + CBC, WITH DIFFERENTIAL (05/22/2009) + + + + + + | Component | Value | Ref Range | Performed | Pathologist | | | | | At | Signature | + + + + + + | WHITE CELL | 5.6 | K/cu mm | [facility] | | [...] + + + + | HEMOGLOBIN | 14.7 | g/dL | [facility] | | | | | | LAB - | | | | | | [place] | | + + + + + + | HEMATOCRIT | 47.6 (H) | % | [facility] | | [...] + + + + | PLATELET | 359 [...] + + + + + + | MPV | | fL | [facility] | | | | | | LAB - | | | | | | [place] | | + + + + + + | NEUTROPHIL | | K/cu mm | [facility] | | | # | | | LAB - | | | | | | [place] | | + + + + + + | LYMPHOCYTE | | K/cu mm | [facility] | | | # | | | LAB - | | | | | | [place] | | + + + + + + | MONOCYTE # | | K/cu mm | [facility] | | | | | | LAB - | | | | | | [place] | | + + + + + + | EOS # | | K/cu mm | [facility] | | | | | | LAB - | | | | | | [place] | | + + + + + + | BASO # | | | [facility] | | | | | [...] + + | [facility] - | [address] | [place], [place] | [phone] | | [place] | | | | + + + + + | [facility] - | | [place], [place] | | | [place] | | | | + + + + + COMPLETE METABOLIC SET (NA,K,CL,CO2,BUN,CREAT,GLUC,CA,AST,ALT,BILI TOTAL,ALK PHOS,ALB,PROT TOTAL) (04/19/2009) + +---------+ + + + | Component | Value | Ref Range | Performed | Pathologist | | | | | At | Signature | + +---------+ + + + | GLUCOSE, | 82 | mg/dL | [facility] | | | PLASMA | | | LAB - | | | (LAB) | | | [place] | | + +---------+ + + + | BUN, PLASMA | 14 | mg/dL | [facility] | | | (LAB) | | | LAB - | | | | | | [place] | | + +---------+ + + + | CREATININE | 0.83 | mg/dL | [facility] | | | [...] +---------+ + + + | ALBUMIN, | 3.4 (L) | g/dL | [facility] | | | PLASMA | | | LAB - | | | (LAB) | | | [place] | | + +---------+ + + + | CALCIUM, | | mg/dL | [facility] | | | PLASMA | | | LAB - | | | (LAB) | | | [place] | | + +---------+ + + + | BILIRUBIN | 1 | Transcutaneous | [facility] | | | TOTAL | | Bilirubinometer | LAB - | | | | | | [place] | | + +---------+ + + + | ALK PHOS | 179 (H) | U/L | [facility] | | | | | | LAB - | | | | | | [place] | | + +---------+ + + + | AST(SGOT) | 31 | U/L | [facility] | | | | | | LAB - | | | | | | [place] | | + +---------+ + + + | SODIUM, | 139 | mmol/L | [facility] | | | PLASMA | | | LAB - | | | (LAB) | | | [place] | | + +---------+ + + + | POTASSIUM, | 3.6 | mmol/L | [facility] | | | [...] - | [address] | [place], [place] | [phone] | | [place] | | | | + + + + + | [facility] - | | [place], [place] | | | [place] | | | | + + + + + documented in this encounter Visit Diagnoses Not on filedocumented in this encounter"
--- OUTSIDE RECORDS SUMMARY | ~2019-02-11 | XMS | Encounter Summary ---
Demographics + + + | Address | [address] | | | [place] [address] | + + + | Home Phone | | + + + | Preferred Language | Unknown | + + + | Marital Status | | + + + | Islam Affiliation | CAT | + + + | Race | White | + + + | Ethnic Group | Not or | + + + Author + + + | Author | [facility] | + + + | Organization | [facility] | + + + | Address | Unknown | + + + | Phone | Unavailable | + + + Support + + + + + | Name | Relationship | Address | Phone | + + + + + | Roxana Bo | ECON | [address] | | | | | [place] | | | | | [address] | | + + + + + Care Team Providers + +------+ + | Care Billet Heater Name | Role | Phone | + +------+ + | Ventura Carrasquillo MD | PCP | | + +------+ + Reason for Visit + + + | Reason | Comments | + + + | Blood Test Results | 10/07/2011 | + + + Encounter Details +--------+ + + + + | Date | Type | Department | Care Team | Description | +--------+ + + + + | 10/12/ | Documentati | Digestive Health | Lake Dennis MD | Blood Test Results | | 2011 | on | Center at [facility] [address] | [address] | (10/07/2011) | | | | [address] | [place], [place] | | | | | Mailcode: OCLuba | [phone] | | | | | [facility] | [phone] | | | | | and Healing, | | | | | | [address] | | | | | | [place], [place] | | | | | | [address] | | | | | | [phone] | | | +--------+ + + + [...] [address] | | | | | | [place], [place] | | | | | | [address] | | | | | | [phone] | | | | | | | | +--------+---------+ + + + documented as of this encounter Procedures + +--------+ + + + | Procedure Name | Priori | Date/Time | Associated Diagnosis | Comments | | | ty | | | | + +--------+ + + + | INR | Routin | 10/07/2011 | | Results for this | | | e | | | procedure are in the | | | | | | results section. | + +--------+ + + + | CBC, WITH | Routin | 10/07/2011 | | Results for this | | DIFFERENTIAL | e | | | procedure are in the | | | | | | results section. | + +--------+ + + + | COMPLETE METABOLIC | Routin | 10/07/2011 | | Results for this | | [...] COMPLETE METABOLIC SET (NA,K,CL,CO2,BUN,CREAT,GLUC,CA,AST,ALT,BILI TOTAL,ALK PHOS,ALB,PROT TOTAL) (10/07/2011) + +---------+ + + + | Component | Value | Ref Range | Performed | Pathologist | | | | | At | Signature | + +---------+ + + + | GLUCOSE, | 99 | mg/dL | [facility] | | | PLASMA | | | LAB - | | | (LAB) | | | [place] | | + +---------+ + + + | BUN, PLASMA | 11 | mg/dL | [facility] | | | (LAB) | | | LAB - | | | | | | [place] | | + +---------+ + + + | CREATININE | 0.78 | mg/dL | [facility] | | | PLASMA | | | LAB - | | | (LAB) | | | [place] | | + +---------+ + + + | ALBUMIN, | 3.9 | g/dL | [facility] | | | PLASMA | | | LAB - | | | (LAB) | | | [place] | | + +---------+ + + + | BILIRUBIN | 0.4 | Transcutaneous | [facility] | | | TOTAL | | Bilirubinometer | LAB - | | | | | | [place] | | + +---------+ + + + | ALK PHOS | 123 | U/L | [facility] | | | | | | LAB - | | | | | | [place] | | + +---------+ + + + | AST(SGOT) | 17 | U/L | [facility] | | | | | | LAB - | | | | | | [place] | | + +---------+ + + + | SODIUM, | 139 | mmol/L | [facility] | | | PLASMA | | | LAB - | | | (LAB) | | | [place] | | + +---------+ + + + | POTASSIUM, | 3.2 (L) | mmol/L | [facility] | | [...] [address] | [place] [address] | | | [place] | [address] | | | + + + + + CBC, WITH DIFFERENTIAL (10/07/2011) + +--------+ + + + | Component | Value | Ref Range | Performed | Pathologist | | | | | At | Signature | + +--------+ + + + | WHITE CELL | 5.5 | K/cu mm | [facility] | | | COUNT | | | LAB - | | | | | | [place] | | + +--------+ + + + | HEMOGLOBIN | 14.8 | g/dL | [facility] | | | | | | LAB - | | | | | | [place] | | + +--------+ + + + | HEMATOCRIT | 47 (H) | % | [facility] | | | | | | LAB - | | | | | | [place] | | + +--------+ + + + | PLATELET | 361 | K/cu mm | [facility] | | | COUNT | | | LAB - | | | | | | [place] | | + +--------+ + + + + + | Specimen | + + | Blood - Blood | + + + + + + + | Performing | Address | City/State/Zipcode | Phone Number | | Organization | | | | + + + + + | [facility] - | [address] | [place] [address] | | | [place] | [address] | | | + + + + + INR (10/07/2011) + +-------+ + + + | Component | Value | Ref Range | Performed | Pathologist | | | | | At | Signature | + +-------+ + + + | INR | 0.9 | INR | [facility] | | | | | | LAB - | | | | | | [place] | | + +-------+ + + + + + | Specimen | + + | Blood - Blood | + + + + + + + | Performing | Address | City/State/Zipcode | Phone Number | | Organization | | | | + + + + + | [facility] - | [address] | [place] [address] | | | [place] | [address] | | | + + + + + documented in this encounter Visit Diagnoses Not on filedocumented in this encounter"
--- OUTSIDE RECORDS SUMMARY | ~2019-02-11 | XMS | Encounter Summary ---
Demographics + + + | Address | [address] | | | [place] [address] | + + + | Home Phone | | + + + | Preferred Language | Unknown | + + + | Marital Status | | + + + | Oriental Orthodox Affiliation | CAT | + + + | Race | White | + + + | Ethnic Group | Not or | + + + Author + + + | Author | [facility] | + + + | Organization | [facility] | + + + | Address | Unknown | + + + | Phone | Unavailable | + + + Support + + + + + | Name | Relationship | Address | Phone | + + + + + | Roxana Bo | ECON | [address] | | | | | [place] | | | | | [address] | | + + + + + Care Team Providers + +------+ + | Care Child Monitor Name | Role | Phone | + [...] | 2009 | on | Center at [facility] [address] | [address] | (04/03/10 [facility] | | | | [address] | [place], [place] | Lab) | | | | Mailcode: OC | [phone] | | | | | [facility] | [phone] | | | | | and [place], | | | | | | [address] | | | | | | [place], [place] | | | | | | [address] | | | | | | [phone] | | | +--------+ + + + [...] [address] | | | | | | [place], [place] | | | | | | [address] | | | | | | [phone] | | | | | | | | +--------+---------+ + + + documented as of this encounter Visit Diagnoses Not on filedocumented in this encounter"
--- OUTSIDE RECORDS SUMMARY | ~2019-02-11 | XMS | Encounter Summary ---
Demographics + + + | Address | [address] | | | [place] [address] | + + + | Home Phone | | + + + | Preferred Language | Unknown | + + + | Marital Status | | + + + | Advent Affiliation | CAT | + + + | Race | White | + + + | Ethnic Group | Not or | + + + Author + + + | Author | [facility] | + + + | Organization | [facility] | + + + | Address | Unknown | + + + | Phone | Unavailable | + + + Support + + + + + | Name | Relationship | Address | Phone | + + + + + | Roxana Bo | ECON | [address] | | | | | [place] | | | | | [address] | | + + + + + Care Team Providers + +------+ + | Care Undercover Cop Name | Role | Phone | + +------+ + | Ventura Carrasquillo MD | PCP | | + +------+ + Reason for Visit + + + | Reason | Comments | + + + | Bone Density Scan | | + + + Encounter Details +--------+ + + + + | Date | Type | Department | Care Team | Description | +--------+ + + + + | 01/25/ | Telephone | Digestive Health | Lake Dennis MD | Bone Density Scan | | 2009 | | [place] at [facility] [address] | [address] | | | | | [address] | [place], [place] | | | | | Mailcode: OC8D | [id number] | | | | | [facility] | [phone] | | | | | and Healing, | | | | | | [address] | | | | | | [place], [place] | | | | | | [address] | | | | | | [phone] | | | +--------+ + + + [...] [address] | | | | | | [place], [place] | | | | | | [address] | | | | | | [phone] | | | | | | | | +--------+---------+ + + + documented as of this encounter Visit Diagnoses Not on filedocumented in this encounter"
--- OUTSIDE RECORDS SUMMARY | ~2019-02-11 | XMS | Encounter Summary ---
Demographics + + + | Address | [address] | | | [place] [address] | + + + | Home Phone [...] + | Roxana Bo | ECON | [address] | | | | | [place] | | | | | [address] | | + + + + + Care Team Providers + +------+ + | Care Upset Welding Machine Operator Name | Role | Phone | + +------+ + | Ventura Carrasquillo MD | PCP | | + +------+ + Encounter Details +--------+ + + + + | Date | Type | Department | Care Team | Description | +--------+ + + + + | 04/07/ | Documentati | Digestive Health | Lake Dennis MD | | | 2010 | on | [place] at [facility] [address] | [address] | | | | | [address] | [place], [place] | | | | | Mailcode: OC8D | [address] | | | | | [place] for [facility] | [phone] | | | | | and Healing, | | | | | | [address] | | | | | | [place], [place] | | | | | | [address] | | | | | | [phone] | | | +--------+ + + + [...] [place] | | | | | | [address] | | | | | | [phone] | | | | | | | | +--------+---------+ + + + documented as of this encounter Visit Diagnoses Not on filedocumented in this encounter"
--- OUTSIDE RECORDS SUMMARY | ~2019-02-11 | XMS | Encounter Summary ---
Demographics + + + | Address | [address] | | | [place] [address] | + + + | Home Phone | | + + + | Preferred Language | Unknown | + + + | Marital Status | | + + + | Confucianism Affiliation | CAT | + + + | Race | White | + + + | Ethnic Group | Not or | + + + Author + + + | Author | [facility] | + + + | Organization | [facility] | + + + | Address | Unknown | + + + | Phone | Unavailable | + + + Support + + + + + | Name | Relationship | Address | Phone | + + + + + | Roxana Bo | ECON | [address] | | | | | [place] | | | | | [address] | | + + + + + Care Team Providers + +------+ + | Care Silviculturist Name | Role | Phone | + [...] | hepatitis | Provider Per | [address] | | | | | Primary | Patient NO | Ave | | | | | biliary | REFERRING | [place], [place] | | | | | cirrhosis | PROVIDER PER | [address] | | | | | Procedures | PT | Phone: | | | | | [place] | | [phone] | | | | | OFFICE/OUTPT | | Fax: | | | | | | | [phone] | | | | | VISIT,EST,LE | | | | | | | VL IV | | | +--------+--------+ + + + + Encounter Details +--------+---------+ + + + | Date | Type | Department | Care Team | Description | +--------+---------+ + + + | 01/25/ | Office | Digestive Health | Lake Ontiveros MD | Primary biliary | | 2018 | Visit | Center at [facility] [address] | [address] | cholangitis (HCC) | | | | [address] | [place], [place] | (Primary Dx); | | | | Mailcode: OC8D | [id number] | Autoimmune hepatitis | | | | [facility] | [phone] | (HCC) | | | | and [place], | | | | | | [address] | | | | | | [place], [place] | | | | | | [address] | | | | | | [phone] | | | +--------+---------+ + + + [...] + + + | Blood Pressure | 150/105 | 01/25/2018 1:34 PM | per pt request | | | | PDT | | + + + + + | Pulse | 81 | 01/25/2018 12:48 PM | | | | | PDT | | + + + + + | Temperature | 36.8 C (98.2 F) | 01/25/2018 12:48 PM | | | | | PDT | | + + + + + | Respiratory Rate | 15 | 01/25/2018 12:48 PM | | | | | PDT | | + + + + + | Oxygen Saturation | - | - | | + + + + + | Inhaled Oxygen | - | - | | | Concentration | | | | + + + + + | Weight | 87.1 kg (192 lb 1.6 | 01/25/2018 12:48 PM | | | | oz) | PDT | | + + + + + | Height | 160 cm (5' 3") | 01/25/2018 12:48 PM | | | | | PDT | | + + + + + | Body Mass Index | 34.03 | 01/25/2018 12:48 PM | | | | | PDT | | + + + + + documented in this encounter Patient Instructions Patient Instructions Lake Ontiveros MD - 01/25/2018 1:00 PM PDT1) cont current medications 2) labs every 4 months (in local town) 3) Return to clinic in 1yr T documented in this encounter Progress Notes Lake Ontiveros MD - 01/25/2018 1:00 PM PDTFormatting of this note might be different from bharat humphrey original. 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 abgendwbkyhd-ldsgyfk-ctgf-lutein (CENTRUM SILVER ULTRA WOMEN'S) Oral Tablet Take 1 Tab by mouth once daily. Joiner-3 Fatty Acids-Vitamin E (FISH OIL) 1,000 mg [...] memory or concentration changes. Review of Systems: General: negative. Eyes: negative. Ears, Nose, Throat: negative. Respiratory: negative. Musculoskeletal: negative. Cardiovascular: negative. Gastrointestinal: negative. Genitourinary: negative. Neurologic: negative. Skin: negative. Psychological: negative. Heme/Lymphatic: negative. Endocrine: negative Social History: Currently smoking: no Current alcohol use: no Currently employed: no Good social support: yes Objective: BP 179/127 | Pulse 81 | Temp (Src) 36.8 C (98.2 F) (Oral) | RR 15 | Ht 1.6 m (5' 3") | Wt 87.1 kg (192 lb 1.6 oz) | BMI 34.03 kg/(m^2) General: Alert, NAD. HEENT: No muscle [...] or spider hemangomota. Laboratory Data: Recent Labs 05/21/17 09/01/17 NA -- 140 CR -- 0.73 AST 25 24 ALT 14 13 TBILI 0.4 0.7 ALB 3.5 3.8 WBC 6.1 4.6 HB 14.3 14.4 PLT 332 348 Assessment/Plan: Continues to do well from a liver standpoint. No evidence of progressive liver disease. Is on adequate doses of Imuran and ursodiol. Plan 1) cont current meds 2) labs 4 months 3) RTC in 1yr Counseling Time: I spent more than 25 [...] [place] | | | | | | [place], [place] | | | | | | [address] | | | | | | [phone] | | | | | | | | +--------+---------+ + + + documented as of this encounter Visit Diagnoses + + | Diagnosis | + + | Primary biliary cholangitis (HCC) - Primary | + + | Autoimmune hepatitis (HCC) Autoimmune hepatitis | + + documented in this encounter
--- OUTSIDE RECORDS SUMMARY | ~2019-02-11 | XMS | Encounter Summary ---
Demographics + + + | Address | [address] | | | [place] [address] | + + + | Home Phone | | + + + | Preferred Language | Unknown | + + + | Marital Status | | + + + | Pentecostalism Affiliation | CAT | + + + | Race | White | + + + | Ethnic Group | Not or | + + + Author + + + | Author | [facility] | + + + | Organization | [facility] | + + + | Address | Unknown | + + + | Phone | Unavailable | + + + Support + + + + + | Name | Relationship | Address | Phone | + + + + + | Roxana Bo | ECON | [address] | | | | | [place] | | | | | [address] | | + + + + + Care Team Providers + +------+ + | Care Strip Cutter Name | Role | Phone | + +------+ + | Ventura Carrasquillo MD | PCP | | + +------+ + Reason for Visit +--------+ + | Reason | Comments | +--------+ + | Other | Vaccine questions. | +--------+ + Encounter Details +--------+ + + + + | Date | Type | Department | Care Team | Description | +--------+ + + + + | 10/04/ | MyChart | Digestive Health | Lake Dennis MD | RE: 3 month blood | | 2012 | Encounter | Center at [facility] [address] | [address] | draw | | | | [address] | [place], [place] | | | | | Mailcode: OC8D | [address] | | | | | [facility] | [phone] | | | | | and Healing, | | | | | | [address] | | | | | | [place], [place] | | | | | | [address] | | | | | | [phone] | | | +--------+ + + + [...] [place] | | | | | | [place], [place] | | | | | | [address] | | | | | | [phone] | | | | | | | | +--------+---------+ + + + documented as of this encounter Procedures + +--------+ + + + | Procedure Name | Priori | Date/Time | Associated Diagnosis | Comments | | | ty | | | | + +--------+ + + + | CBC, WITH | Routin | 10/01/2012 | | Results for this | | DIFFERENTIAL | e | 8:25 AM | | procedure are in the | | | | PDT | | results section. | + +--------+ + + + | COMPLETE METABOLIC | Routin | 10/01/2012 | | Results for this | | SET | e | 8:25 AM | | procedure are in the | | (NA,K,CL,CO2,BUN,CRE | | PDT | | results section. | | AT,GLUC,CA,AST,ALT,B | | | | | | JONH TOTAL,ALK | | | | | | PHOS,ALB,PROT TOTAL) | | | | | + +--------+ + + + documented in this encounter Results CBC, WITH DIFFERENTIAL (10/01/2012 8:25 AM PDT) + +-------+ + + + [...] +-------+ + + + | HEMOGLOBIN | 13.9 | g/dL | [facility] | | | | | | LAB - | | | | | | [facility] | | + +-------+ + + + | HEMATOCRIT | 42.2 | % | [facility] | | | | | | LAB - | | | | | | [facility] | | + +-------+ + + + | MCV | | fL | [facility] | | | | | | LAB - | | | | | | [facility] | | + +-------+ + + + | MCH | | pg | [facility] | | | | | | LAB - | | | | | | [facility] | | + +-------+ + + + | MCHC | | g/dL | [facility] | | | | | | LAB - | | | | | | [facility] | | + +-------+ + + + | PLATELET | 290 | K/cu mm | [facility] | | | COUNT | | | LAB - | | | | | | [facility] | | + +-------+ + + + | NEUTROPHIL | | % | [facility] | | | % | | | LAB - | | | | | | [facility] | | + +-------+ + + + | LYMPHOCYTE | | % | [facility] | | | % | | | LAB - | | | | | | [facility] | | + +-------+ + + + | MONOCYTE % | | % | [facility] | | | | | | LAB - | | | | | | [facility] | | + +-------+ + + + | EOS % | | % | [facility] | | | | | | LAB - | | | | | | [facility] | | + +-------+ + + + | BASO % | | % | [facility] | | | | | | LAB - | | | | | | [facility] | | + +-------+ + + + | RDW | | % | [facility] | | | | | | LAB - | | | | | | [facility] | | + +-------+ + + + | MPV | | fL | [facility] | | | | | | LAB - | | | | | | [facility] | | + +-------+ + + + | NEUTROPHIL | | K/cu mm | [facility] | | | # | | | LAB - | | | | | | [facility] | | + +-------+ + + + | LYMPHOCYTE | | K/cu mm | [facility] | | | # | | | LAB - | | | | | | [facility] | | + +-------+ + + + | MONOCYTE # | | K/cu mm | [facility] | | | | | | LAB - | | | | | | [facility] | | + +-------+ + + + | EOS # | | K/cu mm | [facility] | | | | | | LAB - | | | | | | [facility] | | + +-------+ + + + | BASO # | [...] [address] | [place], [place] | [phone] | | [facility] | | | | + + + + + COMPLETE METABOLIC SET (NA,K,CL,CO2,BUN,CREAT,GLUC,CA,AST,ALT,BILI TOTAL,ALK PHOS,ALB,PROT TOTAL) (10/01/2012 8:25 AM PDT) + +-------+ + + + | Component | Value | Ref Range | Performed | Pathologist | | | | | At | Signature | + +-------+ + + + | GLUCOSE, | 84 | mg/dL | [facility] | | | PLASMA | | | LAB - | | | (LAB) | | | [facility] | | + +-------+ + + + | BUN, PLASMA | 17 | mg/dL | [facility] | | | (LAB) | | | LAB - | | | | | | [facility] | | + +-------+ + + + | CREATININE | 0.77 | mg/dL | [facility] | | | PLASMA | | | LAB - | | | (LAB) | | | [facility] | | + +-------+ + + + | TOTAL | | g/dL | [facility] | | | PROTEIN, | | | LAB - | | | PLASMA | | | [facility] | | | (LAB) | | | | | + +-------+ + + + | ALBUMIN, | 3.9 | g/dL | [facility] | | | PLASMA | | | LAB - | | | (LAB) | | | [facility] | | + +-------+ + + + | CALCIUM, | | mg/dL | [facility] | | | PLASMA | | | LAB - | | | (LAB) | | | [facility] | | + +-------+ + + + | BILIRUBIN | 0.5 | Transcutaneous | [facility] | | | TOTAL | | Bilirubinometer | LAB - | | | | | | [facility] | | + +-------+ + + + | ALK PHOS | 101 | U/L | [facility] | | | | | | LAB - | | | | | | [facility] | | + +-------+ + + + | AST(SGOT) | 19 | U/L | [facility] | | | | | | LAB - | | | | | | [facility] | | + +-------+ + + + | SODIUM, | 141 | mmol/L | [facility] | | | PLASMA | | | LAB - | | | (LAB) | | | [facility] | | + +-------+ + + + | POTASSIUM, | 3.8 | mmol/L | [facility] | | | PLASMA | | | LAB - | | | (LAB) | | | [facility] | | + +-------+ + + + | CHLORIDE, | | mmol/L | [facility] | | | PLASMA | | | LAB - | | | (LAB) | | | [facility] | | + +-------+ + + + | TOTAL CO2, | | mmol/L | [facility] | | | PLASMA | | | LAB - | | | (LAB) | | | [facility] | | + +-------+ + + + | ALT (SGPT) | 10 | U/L | [facility] | | | [...] - | [address] | [place] | [phone] | | [place] | | | | + + + + + documented in this encounter Visit Diagnoses Not on filedocumented in this encounter"
--- OUTSIDE RECORDS SUMMARY | ~2019-02-11 | XMS | Encounter Summary ---
Demographics + + + | Address | [address] | | | [place] [address] | + + + | Home Phone [...] + | Roxana Bo | ECON | [address] | | | | | [place] | | | | | [address] | | + + + + + Care Team Providers + +------+ + | Care Mimeographer Name | Role | Phone | + +------+ + | Ventura Carrasquillo MD | PCP | | + +------+ + Reason for Visit + + + | Reason | Comments | + + + | Refill Request | [facility] last refill 03/2012 | + + + Encounter Details +--------+--------+ + + + | Date | Type | Department | Care Team | Description | +--------+--------+ + + + | 04/08/ | Refill | Digestive Health | Lake Dennis MD | Refill Request ([facility] | | 2012 | | Center at [facility] [address] | [address] | last refill 03/2012) | | | | [address] | [place], [place] | | | | | Mailcode: OC8D | [address] | | | | | [facility] | [phone] | | | | | and Joshua, | | | | | | [address] | | | | | | [place], [place] | | | | | | [address] | | | | | | [phone] | | | +--------+--------+ + + + [...] [place] | | | | | | [facility] [place] | | | | | | [address] | | | | | | [phone] | | | | | | | | +--------+---------+ + + + documented as of this encounter Visit Diagnoses Not on filedocumented in this encounter"
--- OUTSIDE RECORDS SUMMARY | ~2019-02-11 | XMS | Encounter Summary ---
Demographics + + + | Address | [address] | | | [place] [address] | + + + | Home Phone | | + + + | Preferred Language | Unknown | + + + | Marital Status | | + + + | Rastafari Affiliation | CAT | + + + | Race | White | + + + | Ethnic Group | Not or | + + + Author + + + | Author | [facility] | + + + | Organization | [facility] | + + + | Address | Unknown | + + + | Phone | Unavailable | + + + Support + + + + + | Name | Relationship | Address | Phone | + + + + + | Roxana Bo | ECON | [address] | | | | | [place] | | | | | [address] | | + + + + + Care Team Providers + +------+ + | Care Sheet Metal Work Furnace Installer Name | Role | Phone | + +------+ + | Ventura Carrasquillo MD | PCP | | + +------+ + Reason for Referral Diagnostic Testing (Routine) +--------+--------+ + + + + | Status | Reason | Specialty | Diagnoses / | Referred By | Referred To | | | | | Procedures | Contact | Contact | +--------+--------+ + + + + | Closed | | Radiology | Diagnoses | Dona Dennis | | | | | Nonspecific | MD Lake | Ultrasound | | | | | abnormal | [address] | [address] | | | | | results of | [address] | [address] | | | | | liver | [place], [place] | [place] | | | | | function | [address] | Mailcode: | | | | | study | Phone: | PV450 | | | | | Procedures | [phone] | Physician's | | | | | US BIOPSY | Fax: | Pavilion | | | | | LIVER W/ US | [phone] | [place], [place] | | | | | & GUIDANCE | | [address] | | | | | | | Phone: | | | | | | | [phone] | | | | | | | Fax: | | | | | | | [phone] | +--------+--------+ + + + + Reason for Visit AUTH/CERT +--------+--------+ + + + + | Status | Reason | Specialty | Diagnoses / | Referred By | Referred To | | | | | Procedures | Contact | Contact | +--------+--------+ + + + + | Closed | | | | | [facility] [address] | | | | | | | Proceduralcar | | | | | | | e [address] | | | | | | | [address] | | | | | | | [place] | | | | | | | [facility] | | | | | | | [facility] | | | | | | | [place], [place] | | | | | | | [address] | | | | | | | Phone: | | | | | | | [phone] | | | | | | | Fax: | | | | | | | [phone] | +--------+--------+ + + + + Encounter Details +--------+ + + + + | Date | Type | Department | Care Team | Description | +--------+ + + + + | 02/20/ | Hospital | Diagnostic | | | | 2008 | Encounter | Radiology at [facility] | | | | | | [address] | | | | | | [place] Mailcode: | | | | | | [address] Physician's | | | | | | [place], | | | | | | [place] [address] | | | | | | [phone] | | | +--------+ + + + [...] Rogers | | | | | | [place], [place] | | | | | | [address] | | | | | | [phone] | | | | | | | | +--------+---------+ + + + + +------+--------+ + + | Name | Type | Priori | Associated Diagnoses | Order Schedule | | | | ty | | | + +------+--------+ + + | SURGICAL PATHOLOGY | Lab | Routin | | Collect Now for 1 | | | | e | | Occurrences starting | | | | | | 02/20/2009 until | | | | | | 02/20/2009 | + +------+--------+ + + documented as of this encounter Procedures + +--------+ + + + | Procedure Name | Priori | Date/Time | Associated Diagnosis | Comments | | | ty | | | | + +--------+ + + + | US BIOPSY LIVER WITH | Routin | 02/20/2009 | | Results for this | | GUIDANCE | e | 4:34 PM | | procedure are in the | | | | PDT | | results section. | + +--------+ + + + documented in this encounter Results US BIOPSY LIVER W/ US & GUIDANCE (02/20/2009 4:34 PM PDT) + + + + + + | Component | Value | Ref Range | Performed | Pathologist | | | | | At | Signature | + + + + + + | US BIOPSY | Ultrasound guided liver | | | | | LIVER W/ US | biopsy dated | | | | | & GUIDANCE | 02/20/09.Comparison: | | | | | | NoneClinical data: | | | | | | 58-year-old female with | | | | | | elevated liver | | | | | | enzymes.Procedure: | | | | | | Following a PARQ | | | | | | conference, written and | | | | | | oral consent | | | | | | wasobtained. The | | | | | | liver was scanned and a | | | | | | point marked on the | | | | | | skin,overlying the left | | | | | | lobe. The area was | | | | | | prepped and draped in | | | | | | sterilefashion. Sever | | | | | | al ml of 1 percent | | | | | | lidocaine was used for | | | | | | localanesthesia. | | | | | | Radiology nurse was | | | | | | present for blood | | | | | | pressure, heartrate, | | | | | | and oxygen saturation | | | | | | monitoring. Versed 1 | | | | | | mg and Fentanyl 50mcg | | | | | | were administered | | | | | | intravenously. Under | | | | | | ultrasound guidance, | | | | | | an18 gauge core biopsy | | | | | | of the left lobe was | | | | | | obtained. Specimen | | | | | | wassubmitted in formalin | | | | | | to pathology. The | | | | | | patient tolerated | | | | | | theprocedure | | | | | | well. Dr. Joe was | | | | | | present for the entire | | | | | | procedure.Findings: The | | | | | | liver is mildly | | | | | | heterogeneous with | | | | | | diffuse | | | | | | increasedechogenicity. | | | | | | Procedure image | | | | | | demonstrates the needle | | | | | | tip within theright | | | | | | lobe.Impression:Successf | | | | | | ul ultrasound-guided | | | | | | liver biopsy.I have | | | | | | personally viewed this | | | | | | procedure/exam and | | | | | | reviewed this | | | | | | report.Author: VINCENZO Schmidt | | | | | | RAINE ESCOBAReviewer: [facility] | | | | | | Glo JOESTATUS FINAL | | | | | | / Dr. MINGO MCFARLAND | | | | | | PENDING FINAL APPROVAL / | | | | | | Dr. VINCENZO Schmidt | | | | | | OBED | | | | | | PRELIMINARY - UNSIGNED / | | | | | | Dr. VINCENZO ESCOBAR | | | | + + + + + + + + | Specimen | + + | | + + + +---------+ + + | Performing | Address | City/State/Zipcode | Phone Number | | Organization | | | | + +---------+ + + | [facility] DEPARTMENT OF | | | | | RADIOLOGY | | | | + +---------+ + + documented in this encounter Visit Diagnoses + + | Diagnosis | + + | Nonspecific abnormal results of liver function study | + + documented in this encounter"
--- OUTSIDE RECORDS SUMMARY | ~2019-02-11 | XMS | Encounter Summary ---
Demographics + + + | Address | [address] | | | [place] [address] | + + + | Home Phone | | + + + | Preferred Language | Unknown | + + + | Marital Status | | + + + | Orthodoxy Affiliation | CAT | + + + [...] + | Roxana Bo | ECON | [address] | | | | | [place] | | | | | [address] | | + + + + + Care Team Providers + +------+ + | Care Consulting Analyst Name | Role | Phone | + +------+ + | No Pcp Per Patient | PCP | Unavailable | + +------+ + Encounter Details +--------+ + + + + | Date | Type | Department | Care Team | Description | +--------+ + + + + | 05/07/ | Document-Sc | UNKNOWN DEPARTMENT | Unknown . | | | 2016 | anned | [address] | | | | | [address] | | | | | | [place], [place] | | | | | | [address] | | | +--------+ + + + [...] Rogers | | | | | | [place], [place] | | | | | | [address] | | | | | | [phone] | | | | | | | | +--------+---------+ + + + documented as of this encounter Procedures + +--------+ + + + | Procedure Name | Priori | Date/Time | Associated Diagnosis | Comments | | | ty | | | | + +--------+ + + + | LAB REPORTS | | 05/07/2015 | | Results for this | | | | 12:00 AM | | procedure are in the | | | | PST | | results section. | + +--------+ + + + documented in this encounter Results LAB REPORTS (05/07/2015 12:00 AM PST) + + + | Narrative | Performed At | + + + | | | + + + documented in this encounter Visit Diagnoses Not on filedocumented in this encounter"
--- OUTSIDE RECORDS SUMMARY | ~2019-02-11 | XMS | Encounter Summary ---
Demographics + + + | Address | [address] | | | [place] [address] | + + + | Home Phone [...] + + + | Author | [facility] | + + + | Organization | [facility] | + + + | Address | Unknown | + + + | Phone | Unavailable | + + + Support + + + + + | Name | Relationship | Address | Phone | + + + + + | Roxana Bo | ECON | [address] | | | | | [place] | | | | | [address] | | + + + + + Care Team Providers + +------+ + | Care Highway Truck Driver Name | Role | Phone | [...] | | | | | liver | [place], [place] | [place] | | | | | function | [address] | Mailcode: | | | | | study | Phone: | PV450 | | | | | Procedures | [phone] | Physician's | | | | | US BIOPSY | Fax: | Pavilion | | | | | LIVER W/ US | [phone] | [place], [place] | | | | | & GUIDANCE | | [address] | | | | | | | Phone: | | | | | | | [phone] | | | | | | | Fax: | | | | | | | [phone] | +--------+--------+ + + + + Reason [...] | | | | | | | [place], [place] | | | | | | | [address] | | | | | | | Phone: | | | | | | | [phone] | | | | | | | Fax: | | | | | | | [phone] | +--------+--------+ + + + + Encounter Details +--------+ + + + + | Date | Type | Department | Care Team | Description | +--------+ + + + + | 02/20/ | Hospital | Diagnostic | | | | 2008 | Encounter | Radiology at [facility] | | | | | | [address] | | | | | | [place] Mailcode: | | | | | | [address] Physician's | | | | | | [place], | | | | | | [place] [address] | | | | | | [phone] | | | +--------+ + + + [...] [place] | | | | | | [place], [place] | | | | | | [address] | | | | | | [phone] | | | | | | | [...] | | + +---------+ + + | [facility] DEPARTMENT OF | | | | | RADIOLOGY | | | | + +---------+ + + documented in this encounter Visit Diagnoses + + | Diagnosis | + + | Nonspecific abnormal results of liver function study | + + documented in this encounter"
--- OUTSIDE RECORDS SUMMARY | ~2019-02-11 | XMS | Encounter Summary ---
Demographics + + + | Address | [address] | | | [place] [address] | + + + | Home Phone | | + + + | Preferred Language | Unknown | + + + | Marital Status | | + + + | Gnosticism Affiliation | CAT | + + + | Race | White | + + + | Ethnic Group | Not or | + + + Author + + + | Author | [facility] | + + + | Organization | [facility] | + + + | Address | Unknown | + + + | Phone | Unavailable | + + + Support + + + + + | Name | Relationship | Address | Phone | + + + + + | Roxana Bo | ECON | [address] | | | | | [place] | | | | | [address] | | + + + + + Care Team Providers + +------+ + | Care Autobody Technician Name | Role | Phone | [...] | +--------+ + + + + | 06/04/ | Telephone | Digestive Health | Lake Dennis MD | Medication | | 2010 | | [place] [address] [address] | [address] | management | | | | [address] | [place], [place] | | | | | Mailcode: OC8D | [address] | | | | | [facility] | [phone] | | | | | and Healing, | | | | | | [address] | | | | | | [place], [place] | | | | | | [address] | | | | | | [phone] | | | +--------+ + + + [...] Rogers | | | | | | [place], [place] | | | | | | [address] | | | | | | [phone] | | | | | | | | +--------+---------+ + + + documented as of this encounter Visit Diagnoses Not on filedocumented in this encounter"
--- OUTSIDE RECORDS SUMMARY | ~2019-02-11 | XMS | Encounter Summary ---
Demographics + + + | Address | [address] | | | [place] [address] | + + + | Home Phone | | + + + | Preferred Language | Unknown | + + + | Marital Status | | + + + | Baptist Affiliation | CAT | + + + [...] + | Roxana Bo | ECON | [address] | | | | | [place] | | | | | [address] | | + + + + + Care Team Providers + +------+ + | Care Stratigraphy Teacher Name | Role | Phone | + +------+ + | Ventura Carrasquillo MD | PCP | | + +------+ + Encounter Details +--------+ + + + + | Date | Type | Department | Care Team | Description | +--------+ + + + + | 05/06/ | MyChart | Digestive Health | Lake Dennis MD | RE: Lab Orders | | 2017 | Encounter | [place] at [facility] [address] | [address] | | | | | [address] | [place], [place] | | | | | Mailcode: OC8D | [address] | | | | | [facility] | [phone] | | | | | and Healing, | | | | | | [address] | | | | | | [place], [place] | | | | | | [address] | | | | | | [phone] | | | +--------+ + + + [...] Rogers | | | | | | [place], [place] | | | | | | [address] | | | | | | [phone] | | | | | | | | +--------+---------+ + + + documented as of this encounter Visit Diagnoses + + | Diagnosis | + + | Autoimmune hepatitis (HCC) - Primary Autoimmune hepatitis | + + | Primary biliary cirrhosis (HCC) Biliary cirrhosis | + + documented in this encounter"
--- OUTSIDE RECORDS SUMMARY | ~2019-02-11 | XMS | Encounter Summary ---
Demographics + + + | Address | [address] | | | [place] [address] | + + + | Home Phone | | + + + | Preferred Language | Unknown | + + + | Marital Status | | + + + | Mu-Ism Affiliation | CAT | + + + [...] + | Roxana Bo | ECON | [address] | | | | | [place] | | | | | [address] | | + + + + + Care Team Providers + +------+ + | Care Behavioral Health Care Manager Name | Role | Phone | + +------+ + | Ventura Carrasquillo MD | PCP | | + +------+ + Encounter Details +--------+ + + + + | Date | Type | Department | Care Team | Description | +--------+ + + + + | 01/02/ | Documentati | Digestive Health | Lake Dennis MD | | | 2009 | on | [place] at [facility] [address] | [address] | | | | | [address] | [place], [place] | | | | | Mailcode: OC8D | [address] | | | | | [facility] | [phone] | | | | | and Healing, | | | | | | [address] | | | | | | [place], [place] | | | | | | [address] | | | | | | [phone] | | | +--------+ + + + [...] Rogers | | | | | | [facility] [place] | | | | | | [address] | | | | | | [phone] | | | | | | | | +--------+---------+ + + + documented as of this encounter Procedures + +--------+ + + + | Procedure Name | Priori | Date/Time | Associated Diagnosis | Comments | | | ty | | | | + +--------+ + + + | INR | Routin | 01/02/2010 | | Results for this | | | e | | | procedure are in the | | | | | | results section. | + +--------+ + + + | COMPLETE METABOLIC | Routin | 01/02/2010 | | Results for this | | SET | e | | | procedure are in the | | (NA,K,CL,CO2,BUN,CRE | | | | results section. | | AT,GLUC,CA,AST,ALT,B | | | | | | JONH TOTAL,ALK | | | | | | PHOS,ALB,PROT TOTAL) | | | | | + +--------+ + + + | CBC ONLY | Routin | 01/02/2010 | | Results for this | | | e | | | procedure are in the | | | | | | results section. | + +--------+ + + + documented in this encounter Results INR (01/02/2010) + +-------+ + + + | Component | Value | Ref Range | Performed | Pathologist | | | | | At | Signature | + +-------+ + + + | INR | 0.9 | 0.8 - 1.3 INR | [facility] | | | | [...] [address] | [place], [place] | [phone] | | [place] | | | | + + + + + | [facility] - | | [place], [place] | | | [place] | | | | + + + + + CBC ONLY (01/02/2010) + + + + + + | Component | Value | Ref Range | Performed | Pathologist | | | | | At | Signature | + + + + + + | WHITE CELL | 5.9 | K/cu mm | [facility] | | | COUNT | | | LAB - | | | | | | [place] | | + + + + + + | RED CELL | | M/cu mm | [facility] | | | COUNT | | | LAB - | | | | | | [place] | | + + + + + + | HEMOGLOBIN | 14.6 | g/dL | [facility] | | | | | | LAB - | | | | | | [place] | | + + + + + + | HEMATOCRIT | 45.8 (H) | 35 - 45 % | [facility] | | | | [...] + + + + | PLATELET | 267 | K/cu mm | [facility] | | [...] [address] | [place], [place] | [phone] | | [place] | | | | + + + + + | [facility] - | | [place], [place] | | | [place] | | | | + + + + + COMPLETE METABOLIC SET (NA,K,CL,CO2,BUN,CREAT,GLUC,CA,AST,ALT,BILI TOTAL,ALK PHOS,ALB,PROT TOTAL) (01/02/2010) + +---------+ + + + | Component | Value | Ref Range | Performed | Pathologist | | | | | At | Signature | + +---------+ + + + | GLUCOSE, | 84 [...] +---------+ + + + | CREATININE | 0.80 | mg/dL | [facility] | | | PLASMA | | | LAB - | | | (LAB) | | | [place] | | + +---------+ + + + | TOTAL | 7.3 | g/dL | [facility] | | | [...] + + + | ALK PHOS | 129 (H) | 30 - 128 U/L | [facility] | | | | | | LAB - | | | | | | [place] | | + +---------+ + + + | AST(SGOT) | 23 | U/L | [facility] | | | | | | LAB - | | | | | | [facility] | | + +---------+ + + + | SODIUM, | 140 | mmol/L | [facility] | | | PLAS[facility] | | | LAB - | | | (LAB) | | | [place] | | + +---------+ + + + | POTASSIUM, | 3.4 (L) | 3.6 - 5.1 | [facility] | | | PLAS[facility] | | mmol/L | LAB - | | | (LAB) | | | [facility] | | + +---------+ + + + | CHLORIDE, | | mmol/L | [facility] | | | PLASMA | | | LAB - | | | (LAB) | | | [facility] | | + +---------+ + + + [...] | + +---------+ + + + | GLOBULIN | 3.7 (H) | 1.8 - 3.5 | [facility] | | | | | | LAB - | | | | | | [facility] | | + +---------+ + + + | A/G RATIO | 1.0 (L) | 1.1 - 2.4 | [facility] | | | | | [...] - | [address] | [place] | [phone] | | [facility] | | | | + + + + + | [facility] - | | [place], [place] | | | [facility] | | | | + + + + + documented in this encounter Visit Diagnoses Not on filedocumented in this encounter"
--- OUTSIDE RECORDS SUMMARY | ~2019-02-11 | XMS | Encounter Summary ---
Demographics + + + | Address | [address] | | | [place] [address] | + + + | Home Phone | | + + + | Preferred Language | Unknown | + + + | Marital Status | | + + + | Mandaen Affiliation | CAT | + + + | Race | White | + + + | Ethnic Group | Not or | + + + Author + + + | Author | [facility] | + + + | Organization | [facility] | + + + | Address | Unknown | + + + | Phone | Unavailable | + + + Support + + + + + | Name | Relationship | Address | Phone | + + + + + | Roxana Bo | ECON | [address] | | | | | [place] | | | | | [address] | | + + + + + Care Team Providers + +------+ + | Care Computer Peripheral Equipment Operator Name | Role | Phone | + +------+ + | Ventura Carrasquillo MD | PCP | | + +------+ + Encounter Details +--------+ + + + + | Date | Type | Department | Care Team | Description | +--------+ + + + + | 07/02/ | Document-Sc | Health Information | Other, Faculty | | | 2012 | anned | Services [address] | [phone] | | | | | [address] | | | | | | Mailcode: [id number] | | | | | | [facility] | | | | | | [place], [place] | | | | | | [address] | | | | | | [phone] | | | +--------+ + + + [...] Rogers | | | | | | [place], [place] | | | | | | [address] | | | | | | [phone] | | | | | | | | +--------+---------+ + + + documented as of this encounter Procedures + +--------+ + + + | Procedure Name | Priori | Date/Time | Associated Diagnosis | Comments | | | ty | | | | + +--------+ + + + | LAB REPORTS | | 07/02/2012 | | Results for this | | | | 12:00 AM | | procedure are in the | | | | PST | | results section. | + +--------+ + + + documented in this encounter Results LAB REPORTS (07/02/2012 12:00 AM PST) + + + | Narrative | Performed At | + + + | | | | | | + + + + + | Procedure Note | + + | Rg Richards - 10/13/2013 6:53 AM PDT | + + documented in this encounter Visit Diagnoses Not on filedocumented in this encounter"
--- OUTSIDE RECORDS SUMMARY | ~2019-02-11 | XMS | Encounter Summary ---
Demographics + + + | Address | [address] | | | [place] [address] | + + + | Home Phone | | + + + | Preferred Language | Unknown | + + + | Marital Status | | + + + | Restoration Affiliation | CAT | + + + [...] + | Roxana Bo | ECON | [address] | | | | | [place] | | | | | [address] | | + + + + + Care Team Providers + +------+ + | Care Software Verification Engineer Name | Role | Phone | + +------+ + | Ventura Carrasquillo MD | PCP | | + +------+ + Encounter Details +--------+ + + + + | Date | Type | Department | Care Team | Description | +--------+ + + + + | 07/01/ | Document-Sc | Health Information | Unknown . | | | 2013 | anned | Services [address] | | | | | | [address] | | | | | | Mailcode: [id number] | | | | | | [facility] | | | | | | [place], [place] | | | | | | [address] | | | | | | [phone] | | | +--------+ + + + [...] Rogers | | | | | | [place], [place] | | | | | | [address] | | | | | | [phone] | | | | | | | | +--------+---------+ + + + documented as of this encounter Procedures + +--------+ + + + | Procedure Name | Priori | Date/Time | Associated Diagnosis | Comments | | | ty | | | | + +--------+ + + + | LAB REPORTS | | 07/01/2013 | | Results for this | | | | 12:00 AM | | procedure are in the | | | | PST | | results section. | + +--------+ + + + documented in this encounter Results LAB REPORTS (07/01/2013 12:00 AM PST) + + + | Narrative | Performed At | + + + | | | | | | + + + + + | Procedure Note | + + | Maurice Faculty - 08/05/2013 12:57 PM PDT | + + documented in this encounter Visit Diagnoses Not on filedocumented in this encounter"
--- OUTSIDE RECORDS SUMMARY | ~2019-02-11 | XMS | Encounter Summary ---
Demographics + + + | Address | [address] | | | [place] [address] | + + + | Home Phone [...] + + + | Author | [facility] | + + + | Organization | [facility] | + + + | Address | Unknown | + + + | Phone | Unavailable | + + + Support + + + + + | Name | Relationship | Address | Phone | + + + + + | Roxana Bo | ECON | [address] | | | | | [place] | | | | | [address] | | + + + + + Care Team Providers + +------+ + | Care Boat Outfitter Name | Role | Phone | + +------+ + | Ventura Carrasquillo MD | PCP | | + +------+ + Reason for Visit + + + | Reason | Comments | + + + | Medication | Dose adjustment for Imuran | | management | | + + + Encounter Details +--------+ + + + + | Date | Type | Department | Care Team | Description | +--------+ + + + + | 08/01/ | Documentati | Digestive Health | Lake Dennis MD | Medication | | 2010 | on | Center at [facility] [address] | [address] | management (Dose | | | | [address] | [place], [place] | adjustment for | | | | Mailcode: OC8D | [phone] | Imuran) | | | | [facility] | [phone] | | | | | and Healing, | | | | | | [address] | | | | | | [place], [place] | | | | | | [address] | | | | | | [phone] | | | +--------+ + + + [...] Rogers | | | | | | [place], [place] | | | | | | [address] | | | | | | [phone] | | | | | | | | +--------+---------+ + + + documented as of this encounter Visit Diagnoses Not on filedocumented in this encounter"
--- OUTSIDE RECORDS SUMMARY | ~2019-02-11 | XMS | Encounter Summary ---
Demographics + + + | Address | [address] | | | [place] [address] | + + + | Home Phone [...] + | Roxana Bo | ECON | [address] | | | | | [place] | | | | | [address] | | + + + + + Care Team Providers + +------+ + | Care Web Press Operator Apprentice Name | Role | Phone | + [...] Results | | 2015 | Encounter | [place] [address] [address] | [address] | | | | | [address] | [place], [place] | | | | | Mailcode: OC8D | [address] | | | | | [facility] | [phone] | | | | | and Joshua, | | | | | | [address] | | | | | | [place], [place] | | | | | | [address] | | | | | | [phone] | | | +--------+ + + + [...] [address] | | | | | | [place], [place] | | | | | | [address] | | | | | | [phone] | | | | | | | [...] [address] | [place], [place] | [phone] | | [place] | | | | [...] [address] | [place], [place] | [phone] | | [place] | | | | + + + + + documented in this encounter Visit Diagnoses Not on filedocumented in this encounter"
--- OUTSIDE RECORDS SUMMARY | ~2019-02-11 | XMS | Encounter Summary ---
Demographics + + + | Address | [address] | | | [place] [address] | + + + | Home Phone [...] + + + | Author | [facility] | + + + | Organization | [facility] | + + + | Address | Unknown | + + + | Phone | Unavailable | + + + Support + + + + + | Name | Relationship | Address | Phone | + + + + + | Roxana Bo | ECON | [address] | | | | | [place] | | | | | [address] | | + + + + + Care Team Providers + +------+ + | Care Oral Therapist Name | Role | Phone | + +------+ + | Ventura Carrasquillo MD | PCP | | + +------+ + Encounter Details +--------+ + + + + | Date | Type | Department | Care Team | Description | +--------+ + + + + | 10/04/ | Documentati | Digestive Health | Lake Dennis MD | | | 2010 | on | [facility] at [facility] [address] | [address] | | | | | [address] | [place], [place] | | | | | Mailcode: OC8D | [address] | | | | | [place] for [facility] | [phone] | | | | | and Healing, | | | | | | [address] | | | | | | [place], [place] | | | | | | [address] | | | | | | [phone] | | | +--------+ + + + [...] [address] | | | | | | [facility] [place] | | | | | | [address] | | | | | | [phone] | | | | | | | | +--------+---------+ + + + documented as of this encounter Procedures + +--------+ + + + | Procedure Name | Priori | Date/Time | Associated Diagnosis | Comments | | | ty | | | | + +--------+ + + + | COMPLETE METABOLIC | Routin | 10/02/2010 | | Results for this | | SET | e | | | procedure are in the | | (NA,K,CL,CO2,BUN,CRE | | | | results section. | | AT,GLUC,CA,AST,ALT,B | | | | | | JONH TOTAL,ALK | | | | | | PHOS,ALB,PROT TOTAL) | | | | | + +--------+ + + + | CBC ONLY | Routin | 10/02/2010 | | Results for this | | | e | | | procedure are in the | | | | | | results section. | + +--------+ + + + documented in this encounter Results COMPLETE METABOLIC SET (NA,K,CL,CO2,BUN,CREAT,GLUC,CA,AST,ALT,BILI TOTAL,ALK PHOS,ALB,PROT TOTAL) (10/02/2010) + +-------+ + + + | Component | Value | Ref Range | Performed | Pathologist | | | | | At | Signature | + +-------+ + + + | GLUCOSE, | 88 | 65 - 110 mg/dL | [facility] | | | PLASMA [...] + + + | ALK PHOS | 97 | U/L | [facility] | | | | | | LAB - | | | | | | [place] | | + +-------+ + + + | AST(SGOT) | 20 [...] +-------+ + + + | POTASSIUM, | 3.7 [...] + + + | ALT (SGPT) | | U/L | [facility] | | | [...] + + | [facility] - | [address] | [place] | [phone] | | [place] | | | | + + + + + | [facility] - | | [place] | | | [place] | | | | + + + + + CBC ONLY (10/02/2010) + +-------+ + + + | Component [...] + + | HEMOGLOBIN | 14.7 | 12.1999 - 15 | [facility] | | | | | g/dL | LAB - | | | | | | [place] | | + +-------+ + + + | HEMATOCRIT | 44.1 | % | [facility] | | | [...] +-------+ + + + | PLATELET | 264 | K/cu mm | [facility] | | [address] | [place] | [phone] | | [place] | | | | + + + + + | [facility] - | | [place], [place] | | | [place] | | | | + + + + + documented in this encounter Visit Diagnoses Not on filedocumented in this encounter"
--- OUTSIDE RECORDS SUMMARY | ~2019-02-11 | XMS | Encounter Summary ---
Demographics + + + | Address | [address] | | | [place] [address] | + + + | Home Phone [...] + + | Author | [facility] | + + + | Organization | [facility] | + + + | Address | Unknown | + + + | Phone | Unavailable | + + + Support + + + + + | Name | Relationship | Address | Phone | + + + + + | Roxana Bo | ECON | [address] | | | | | [place] | | | | | [address] | | + + + + + Care Team Providers + +------+ + | Care Information Technology Advisor Name | Role | Phone | + [...] Test Results | | 2017 | | [place] [address] [address] | [address] | | | | | [address] | [place], [place] | | | | | Mailcode: OC8D | [phone] | | | | | [facility] | [phone] | | | | | and Healing, | | | | | | [address] | | | | | | [place], [place] | | | | | | [address] | | | | | | [phone] | | | +--------+ + + + [...] - 05/06/2016 9:17 AM PST[facility] [address] [place] [address] #[id number] signed by Umesh Horowitz MA at 07/09/2016 2:35 PM PSTdocumelissa padilla this encounter Plan of Treatment +--------+---------+ + + + | Date | Type | Specialty | Care Team | Description | +--------+---------+ + + + | 01/26/ | Office | Hepatology | Lake Dennis MD | | | 2019 | Visit | | [address] | | | | | | [facility] [place] | | | | | | [address] | | | | | | [phone] | | | | | | | [...] [address] | [place] [address] | | | [place] | [address] | [...] | [facility] - | [address] [facility] [address] | [place] [address] | | | [place] | [address] | | | + + + + + documented in this encounter Visit Diagnoses Not on filedocumented in this encounter"
--- OUTSIDE RECORDS SUMMARY | ~2019-02-11 | XMS | Encounter Summary ---
Demographics + + + | Address | [address] | | | [place] [address] | + + + | Home Phone [...] + | Roxana Bo | ECON | [address] | | | | | [place] | | | | | [address] | | + + + + + Care Team Providers + +------+ + | Care Disc Pad Plate Filler Name | Role | Phone | + [...] Medication | | 2014 | Encounter | [place] [address] [address] | [address] | Inquiry | | | | [address] | [place], [place] | | | | | Mailcode: OC8D | [address] | | | | | [facility] | [phone] | | | | | and Healing, | | | | | | [address] | | | | | | [place], [place] | | | | | | [address] | | | | | | [phone] | | | +--------+ + + + [...] [place] | | | | | | [address] | | | | | | [phone] | | | | | | | | +--------+---------+ + + + documented as of this encounter Visit Diagnoses Not on filedocumented in this encounter"
--- OUTSIDE RECORDS SUMMARY | ~2019-02-11 | XMS | Encounter Summary ---
Demographics + + + | Address | [address] | | | [place] [address] | + + + | Home Phone [...] + | Roxana Bo | ECON | [address] | | | | | [place] | | | | | [address] | | + + + + + Care Team Providers + +------+ + | Care Educational Institution President Name | Role | Phone | + +------+ + | Ventura Carrasquillo MD | PCP | | + +------+ + Encounter Details +--------+ + + + + | Date | Type | Department | Care Team | Description | +--------+ + + + + | 03/08/ | MyChart | Digestive Health | Lake Dennis MD | RE: Prescription | | 2018 | Encounter | Center at [facility] [address] | [address] | Refill | | | | [address] | [place], [place] | | | | | Mailcode: OC8D | [address] | | | | | [place] [facility] | [phone] | | | | | and Healing, | | | | | | [address] | | | | | | [place], [place] | | | | | | [address] | | | | | | [phone] | | | +--------+ + + + [...] [address] | | | | | | [place], [place] | | | | | | [address] | | | | | | [phone] | | | | | | | | +--------+---------+ + + + documented as of this encounter Visit Diagnoses Not on filedocumented in this encounter"
--- OUTSIDE RECORDS SUMMARY | ~2019-02-11 | XMS | Encounter Summary ---
Demographics + + + | Address | [address] | | | [place] [address] | + + + | Home Phone [...] + | Roxana Bo | ECON | [address] | | | | | [place] | | | | | [address] | | + + + + + Care Team Providers + +------+ + | Care Community Resource Consultant Name | Role | Phone | + [...] + + + + | 01/26/ | Launderette Attendant | Digestive Health | Lake Dennis MD | Primary biliary | | 2017 | | Center at [facility] [address] | [address] | cirrhosis (HCC) | | | | [address] | [place], [place] | (Primary Dx); | | | | Mailcode: OC8D | [address] | Autoimmune hepatitis | | | | [facility] | [phone] | (HCC) | | | | and Healing, | | | | | | [address] | | | | | | [place], [place] | | | | | | [address] | | | | | | [phone] | | | +--------+ + + + [...] [address] | | | | | | [place], [place] | | | | | | [address] | | | | | | [phone] | | | | | | | | +--------+---------+ + + + documented as of this encounter Visit Diagnoses + + | Diagnosis | + + | Primary biliary cirrhosis (HCC) - Primary Biliary cirrhosis | + + | Autoimmune hepatitis (HCC) Autoimmune hepatitis | + + documented in this encounter"
--- OUTSIDE RECORDS SUMMARY | ~2019-02-11 | XMS | Encounter Summary ---
Demographics + + + | Address | [address] | | | [place] [address] | + + + | Home Phone [...] + | Roxana Bo | ECON | [address] | | | | | [place] | | | | | [address] | | + + + + + Care Team Providers + +------+ + | Care Machine Operator Packaging Name | Role | Phone | + [...] | | results of | Ave | [address] | | | | | liver | [place], [place] | [place] | | | | | function | [address] | Mailcode: | | | | | study | Phone: | PV450 | | | | | Procedures | [phone] | Physician's | | | | | US BIOPSY | Fax: | Pavilion | | | | | LIVER W/ US | [phone] | [place], [place] | | | | | & GUIDANCE | | [address] | | | | | | | Phone: | | | | | | | [phone] | | | | | | | Fax: | | | | | | | [phone] | +--------+--------+ + + + + Reason for Visit + + + | Reason | Comments | + + + | New patient | | | consultation | | + + + Office Visit [...] | | hepatitis | MD | [address] | | | | | (HCC) | [place] | Ave | | | | | Procedures | FAMILY | [place], [place] | | | | | CONSULT TO | MEDICINE | [address] | | | | | HEPATOLOGY | [address] | Phone: | | | | | liver bx | [address] | [phone] | | | | | | [place], | Fax: | | | | | | [place] [address] | [phone] | | | | | | Phone: | | | | | | | [phone] | | | | | | | Fax: | | | | | | | [phone] | | +--------+ + + + + + Encounter Details +--------+---------+ + + + | Date | Type | Department | Care Team | Description | +--------+---------+ + + + | 02/14/ | Office | Digestive Health | Lake Dennis MD | Nonspecific Abnormal | | 2009 | Visit | Center at [facility] [address] | [address] | Results of Liver | | | | [address] | [place], [place] | Function Study | | | | Mailcode: OC8D | [address] | (Primary Dx) | | | | [facility] | [phone] | | | | | and Healing, | | | | | | [address] | | | | | | [place], [place] | | | | | | [address] | | | | | | [phone] | | | +--------+---------+ + + + [...] + + + | Blood Pressure | 183/99 | 02/14/2009 12:51 PM | | | | | PDT | | + + + + + | Pulse | 88 | 02/14/2009 12:51 PM | | | | | PDT | | + + + + + | Temperature | - | - | | + + + + + | Respiratory Rate | 16 | 02/14/2009 12:51 PM | | | | | PDT | | + + + + + | Oxygen Saturation | - | - | | + + + + + | Inhaled Oxygen | - | - | | | Concentration | | | | + + + + + | Weight | 85.5 kg (188 lb 9.6 | 02/14/2009 12:51 PM | | | | oz) | PDT | | + + + + + | Height | 157.5 cm (5' 2") | 02/14/2009 12:51 PM | | | | | PDT | | + + + + + | Body Mass Index | 34.5 | 02/14/2009 12:51 PM | | | | | PDT | | + + + + + documented in this encounter Progress Notes Lake Dennis MD - 02/14/2009 1:21 PM PDTThis office note has been dictated. CSN #: [id number] documented in this encoun ter Plan of Treatment +--------+---------+ + + + | Date | Type | Specialty | Care Team | Description | +--------+---------+ + + + | 01/26/ | Office | Hepatology | Lake Dennis MD | | | 2020 | Visit | | [address] | | | | | | [place], [place] | | | | | | [address] | | | | | | [phone] | | | | | | | | +--------+---------+ + + + documented as of this encounter Procedures + +--------+ + + + | Procedure Name | Priori | Date/Time | Associated Diagnosis | Comments | | | ty | | | | + +--------+ + + + | LAB REPORTS | | 03/22/2009 | | Results for this | | | | 12:00 AM | | procedure are in the | | | | PST | | results section. | + +--------+ + + + | RADIOLOGY | | 02/14/2009 | | Results for this | | | | 1:34 PM | | procedure are in the | | | | PDT | | results section. | + +--------+ + + + documented in this encounter Results LAB REPORTS (03/22/2009 12:00 AM PST) + + + | Narrative | Performed At | + + + | | | + + + + + | Procedure Note | + + | Rg Richards - 03/22/2009 12:00 AM PST | | | + + PROTEIN ELECTROPHORESIS, SERUM (02/14/2009 1:37 [...] + + + + + + | SPE | Raquel Duron | | | | [...] | Range Change effective 05/30/08 [facility] | DEPARTMENT OF | | Lab) [facility] [place] [address] [address] | PATHOLOGY | | [place] [address] | | + + + + + + + + | Performing | Address | City/State/Zipcode | Phone Number | | Organization | | | | + + + + + | [facility] | [address] | [place] [address] | | | PATHOLOGY | [address] [...] | DEPARTMENT OF | | Way Lab) [facility] [address] | PATHOLOGY | | [address] | | | [place] [address] RLB | | | ([address] Lab) [facility] [address] | | | [address] | | | [place] [address] | | + + + + + + + + | Performing | Address | City/State/Zipcode | Phone Number | | Organization | | | | + + + + + | [facility] | [address] | [place] [address] | | | PATHOLOGY | [address] [...] At | + + + | [facility] ([facility] [place] | [facility] | | [facility] [address] [facility] | DEPARTMENT OF | | [place] [address] | PATHOLOGY | + + + + + + + + | Performing | Address | City/State/Zipcode | Phone Number | | Organization | | | | + + + + + | [facility] | [address] | [place] [address] | | | PATHOLOGY | [address] [...] 1.00Comment: | 0.98 - 1.20 INR | [facility] | | | | PT INR | [...] | + + + + + | [facility] DEPARTMENT OF | [address] | [place] [address] | | | PATHOLOGY | [address] | | | + + + + + | [facility] DEPARTMENT OF | [address] | [place] [address] | | | PATHOLOGY | [address] | | | + + + + + [facility] CBC W DIFFERENTIAL (02/14/2009 1:37 PM PDT) + + + [...] | [facility] DEPARTMENT OF | [address] | [place] [address] | | | PATHOLOGY | [address] | | | + + + + + | [facility] DEPARTMENT OF | [address] | [place] [address] | | | PATHOLOGY | [address] [...] | + + + + + | [facility] | [address] | [place] [address] | | | PATHOLOGY | [address] | | | + + + + + | [facility] | [address] | [place] [address] | | | PATHOLOGY | [address] | | | + + + + + RADIOLOGY (02/14/2009 1:34 PM PDT) + + + | Narrative | Performed At | + + + | | | + + + + + | Procedure Note | + + | Rg Richards - 02/14/2009 1:34 PM PDT | | | + + documented in this encounter Visit Diagnoses + + | Diagnosis | + + | Nonspecific abnormal results of liver function study - Primary | + + documented in this encounter
--- OUTSIDE RECORDS SUMMARY | ~2019-02-11 | XMS | Encounter Summary ---
Demographics + + + | Address | [address] | | | [place] [address] | + + + | Home Phone [...] + + | Author | [facility] | + + + | Organization | [facility] | + + + | Address | Unknown | + + + | Phone | Unavailable | + + + Support + + + + + | Name | Relationship | Address | Phone | + + + + + | Roxana Bo | ECON | [address] | | | | | [place] | | | | | [address] | | + + + + + Care Team Providers + +------+ + | Care Core Finisher Name | Role | Phone | + +------+ + | Ventura Carrasquillo MD | PCP | | + +------+ + Reason for Visit + + + | Reason | Comments | + + + | Vaccination | Tdap | + + + | Medication | Zyrtec | | management | | + + + Encounter Details +--------+ + + + + | Date | Type | Department | Care Team | Description | +--------+ + + + + | 08/05/ | Telephone | Digestive Health | Lake Dennis MD | Vaccination (Tdap); | | 2012 | | Center at [facility] [address] | [address] | Medication | | | | [address] | [place], [place] | management ([facility]) | | | | Mailcode: OC8D | [address] | | | | | [facility] | [phone] | | | | | and Healing, | | | | | | [address] | | | | | | [facility] [place] | | | | | | [address] | | | | | | [phone] | | | +--------+ + + + [...] [address] | | | | | | [place], [place] | | | | | | [address] | | | | | | [phone] | | | | | | | | +--------+---------+ + + + documented as of this encounter Visit Diagnoses Not on filedocumented in this encounter"
--- OUTSIDE RECORDS SUMMARY | ~2019-02-11 | XMS | Encounter Summary ---
Demographics + + + | Address | [address] | | | [place] [address] | + + + | Home Phone [...] + + + | Author | [facility] | + + + | Organization | [facility] | + + + | Address | Unknown | + + + | Phone | Unavailable | + + + Support + + + + + | Name | Relationship | Address | Phone | + + + + + | Roxana Bo | ECON | [address] | | | | | [place] | | | | | [address] | | + + + + + Care Team Providers + +------+ + | Care Income Auditor Name | Role | Phone | + [...] | +--------+ + + + + | 09/11/ | Abstract | Digestive Health | Lake Dennis MD | Blood Test Results | | 2017 | | [place] [address] [address] | [address] | | | | | [address] | [place], [place] | | | | | Mailcode: OC8D | [address] | | | | | [facility] | [phone] | | | | | and Healing, | | | | | | [address] | | | | | | [place], [place] | | | | | | [address] | | | | | | [phone] | | | +--------+ + + + [...] [address] | | | | | | [place], [place] | | | | | | [address] | | | | | | [phone] | | | | | | | | +--------+---------+ + + + documented as of this encounter Visit Diagnoses Not on filedocumented in this encounter"
--- OUTSIDE RECORDS SUMMARY | ~2019-02-11 | XMS | Encounter Summary ---
Demographics + + + | Address | [address] | | | [place] [address] | + + + | Home Phone [...] + | Roxana Bo | ECON | [address] | | | | | [place] | | | | | [address] | | + + + + + Care Team Providers + +------+ + | Care Hearing Aide Technician Name | Role | Phone | [...] Orders | | 2017 | Encounter | [facility] [address] | [address] | | | | | [address] | [place], [place] | | | | | Mailcode: OC8D | [address] | | | | | [facility] | [phone] | | | | | and Healing, | | | | | | [address] | | | | | | [place], [place] | | | | | | [address] | | | | | | [phone] | | | +--------+ + + + [...] Rogers | | | | | | [place], [place] | | | | | | [address] | | | | | | [phone] | | | | | | | | +--------+---------+ + + + documented as of this encounter Visit Diagnoses + + | Diagnosis | + + | Autoimmune hepatitis (HCC) - Primary Autoimmune hepatitis | + + | Primary biliary cirrhosis (HCC) Biliary cirrhosis | + + documented in this encounter"
--- OUTSIDE RECORDS SUMMARY | ~2019-02-11 | XMS | Encounter Summary ---
Demographics + + + | Address | [address] | | | [place] [address] | + + + | Home Phone | | + + + | Preferred Language | Unknown | + + + | Marital Status | | + + + | Zoroastrianism Affiliation | CAT | + + + | Race | White | + + + | Ethnic Group | Not or | + + + Author + + + | Author | [facility] | + + + | Organization | [facility] | + + + | Address | Unknown | + + + | Phone | Unavailable | + + + Support + + + + + | Name | Relationship | Address | Phone | + + + + + | Roxana Bo | ECON | [address] | | | | | [place] | | | | | [address] | | + + + + + Care Team Providers + +------+ + | Care Whiting Machine Operator Name | Role | Phone [...] Test Results | | 2017 | | [place] [address] [address] | [address] | | | | | [address] | [place], [place] | | | | | Mailcode: OC8D | [address] | | | | | [facility] | [phone] | | | | | and Healing, | | | | | | [address] | | | | | | [place], [place] | | | | | | [address] | | | | | | [phone] | | | +--------+ + + + [...] [address] | | | | | | [place], [place] | | | | | | [address] | | | | | | [phone] | | | | | | | | +--------+---------+ + + + documented as of this encounter Visit Diagnoses Not on filedocumented in this encounter"
--- OUTSIDE RECORDS SUMMARY | ~2019-02-11 | XMS | Encounter Summary ---
Demographics + + + | Address | [address] | | | [place] [address] | + + + | Home Phone [...] + | Roxana Bo | ECON | [address] | | | | | [place] | | | | | [address] | | + + + + + Care Team Providers + +------+ + | Care Hospital Medicine Director Name | Role | Phone | + +------+ + | Ventura Carrasquillo MD | PCP | | + +------+ + Encounter Details +--------+ + + + + | Date | Type | Department | Care Team | Description | +--------+ + + + + | 10/07/ | Telephone | Digestive Health | Lake Dennis MD | | | 2011 | | [place] [address] | [address] | | | | | [address] | [place], [place] | | | | | Mailcode: OC8D | [address] | | | | | [facility] | [phone] | | | | | and Healing, | | | | | | [address] | | | | | | [place], [place] | | | | | | [address] | | | | | | [phone] | | | +--------+ + + + [...] Rogers | | | | | | [place], [place] | | | | | | [address] | | | | | | [phone] | | | | | | | | +--------+---------+ + + + documented as of this encounter Visit Diagnoses Not on filedocumented in this encounter"
--- OUTSIDE RECORDS SUMMARY | ~2019-02-11 | XMS | Encounter Summary ---
Demographics + + + | Address | [address] | | | [place] [address] | + + + | Home Phone | | + + + | Preferred Language | Unknown | + + + | Marital Status | | + + + | Sikhism Affiliation | CAT | + + + [...] + | Roxana Bo | ECON | [address] | | | | | [place] | | | | | [address] | | + + + + + Care Team Providers + +------+ + | Care Wardrobe Assistant Name | Role | Phone | + [...] | 2011 | Encounter | Center at [facility] [address] | [address] | | | | | [address] | [place], [place] | | | | | Mailcode: OC8D | [address] | | | | | [facility] | [phone] | | | | | and Healing, | | | | | | [address] | | | | | | [place], [place] | | | | | | [address] | | | | | | [phone] | | | +--------+ + + + [...] Rogers | | | | | | [place], [place] | | | | | | [address] | | | | | | [phone] | | | | | | | | +--------+---------+ + + + documented as of this encounter Visit Diagnoses Not on filedocumented in this encounter"
--- OUTSIDE RECORDS SUMMARY | ~2019-02-11 | XMS | Encounter Summary ---
Demographics + + + | Address | [address] | | | [place] [address] | + + + | Home Phone [...] + | Roxana Bo | ECON | [address] | | | | | [place] | | | | | [address] | | + + + + + Care Team Providers + +------+ + | Care Interface Control Officer Name | Role | Phone | [...] Lab findings, | | 2008 | | [place] [address] | [address] | teaching, guidance, | | | | [address] | [place], [place] | and counseling | | | | Mailcode: OC8D | [phone] | (add'l questions ) | | | | [facility] | [phone] | | | | | and Healing, | | | | | | [address] | | | | | | [place], [place] | | | | | | [address] | | | | | | [phone] | | | +--------+ + + + [...] Rogers | | | | | | [place], [place] | | | | | | [address] | | | | | | [phone] | | | | | | | | +--------+---------+ + + + documented as of this encounter Visit Diagnoses Not on filedocumented in this encounter"
--- OUTSIDE RECORDS SUMMARY | ~2019-02-11 | XMS | Encounter Summary ---
Demographics + + + | Address | [address] | | | [place] [address] | + + + | Home Phone | | + + + | Preferred Language | Unknown | + + + | Marital Status | | + + + | Baptism Affiliation | CAT | + + + [...] + | Roxana Bo | ECON | [address] | | | | | [place] | | | | | [address] | | + + + + + Care Team Providers + +------+ + | Care Stretching Machine Tender Frame Name | Role | Phone | + [...] Rogers | | | | | | [place], [place] | | | | | | [address] | | | | | | [phone] | | | | | | | | +--------+---------+ + + + documented as of this encounter Visit Diagnoses Not on filedocumented in this encounter"
--- OUTSIDE RECORDS SUMMARY | ~2019-02-11 | XMS | Encounter Summary ---
Demographics + + + | Address | [address] | | | [place] [address] | + + + | Home Phone | | + + + | Preferred Language | Unknown | + + + | Marital Status | | + + + | Jehovah'S Witness Affiliation | CAT | + + + [...] + | Roxana Bo | ECON | [address] | | | | | [place] | | | | | [address] | | + + + + + Care Team Providers + +------+ + | Care Blender/Braze Applicator Name | Role | Phone | + +------+ + | Ventura Carrasquillo MD | PCP | | + +------+ + Reason for Visit + + + | Reason | Comments | + + + | Follow-up visit | | + + + Office Visit - E/M Services (Routine) + +--------+ + + + + | Status | Reason | Specialty | Diagnoses / | Referred By | Referred To | | | | | Procedures | Contact | Contact | + +--------+ + + + + | Authorized | | Hepatology | Diagnoses | No | Sonny, | | | | | Autoimmune | Referring | MD Lake | | | | | hepatitis | Provider Per | [address] | | | | | Primary | Patient NO | Ave | | | | | biliary | REFERRING | [place], [place] | | | | | cirrhosis | PROVIDER PER | [address] | | | | | Procedures | PT | Phone: | | | | | [place] | | [phone] | | | | | OFFICE/OUTPT | | Fax: | | | | | | | [phone] | | | | | VISIT,EST,LE | | | | | | | VL IV | | | + +--------+ + + + + Encounter Details +--------+---------+ + + + | Date | Type | Department | Care Team | Description | +--------+---------+ + + + | 02/04/ | Office | Digestive Health | Lake Ontiveros MD | Autoimmune hepatitis | | 2019 | Visit | Center at [facility] [address] | [address] | (HCC) (Primary Dx); | | | | [address] | [place], [place] | Primary biliary | | | | Mailcode: OC8D | [address] | cholangitis (HCC) | | | | [facility] | [phone] | | | | | and Healing, | | | | | | [address] | | | | | | [place], [place] | | | | | | [address] | | | | | | [phone] | | | +--------+---------+ + + + [...] + + + | Blood Pressure | 156/98 | 02/04/2019 2:53 PM | | | | | PDT | | + + + + + | Pulse | 79 | 02/04/2019 2:53 PM | | | | | PDT | | + + + + + | Temperature | 36.7 C (98 F) | 02/04/2019 2:53 PM | | | | | PDT | | + + + + + | Respiratory Rate | 16 | 02/04/2019 2:53 PM | | | | | PDT | | + + + + + | Oxygen Saturation | - | - | | + + + + + | Inhaled Oxygen | - | - | | | Concentration | | | | + + + + + | Weight | 84.4 kg (186 lb 1.6 | 02/04/2019 2:53 PM | | | | oz) | PDT | | + + + + + | Height | 160 cm (5' 3") | 02/04/2019 2:53 PM | | | | | PDT | | + + + + + | Body Mass Index | 32.97 | 02/04/2019 2:53 PM | | | | | PDT | | + + + + + documented in this encounter Patient Instructions Patient Instructions Lake Ontiveros MD - 02/04/2019 3:20 PM PDT1. Cont current doses of Imur an and ursodiol 2. Labs Every 4months in your local town 3. Return in 1 yr documented in this encounter Progress Notes Lake Ontiveros MD - 02/04/2019 3:20 PM PDTFormatting of this note might be different from th e original. 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 Current Outpatient Medications Medication Sig alendronate 70 mg oral tablet amoxicillin-clavulanate 875-125 mg oral tablet Take 1 tablet by mouth two times daily. AZATHIOPRINE 50 mg oral tablet take 1 tablet by mouth once daily after meals CALCIUM CARBONATE/VITAMIN D3 (VITAMIN D-3 ORAL) Take 1,000 Units by mouth once daily. cephALEXin 500 mg Oral capsule Take 4 caps by mouth prior to procedure. cholecalciferol, Vitamin D3, (VITAMIN D3) 1,000 unit oral tablet Take 1,000 Units by mo ut once daily. dwrdwwrnzrkg-dhsgixb-fzyy-lutein (CENTRUM SILVER ULTRA WOMEN'S) Oral Tablet Take 1 Tab by mouth once daily. mv-mn/lutein/zeax/bilber/hb277 (MACULAR HEALTH FORMULA ORAL) Take by mouth. [place]-3 Fatty Acids-Vitamin E (FISH OIL) 1,000 mg Oral capsule Take 2 Caps by mouth onc e daily. TURMERIC ORAL Take by mouth. URSODIOL 300 mg oral capsule take 3 capsules by mouth at bedtime No current facility-administered medications for this visit. [...] no Good social support: yes Objective: BP (!) 156/98 | Pulse 79 | Temp 36.7 C (98 F) (Oral) | Resp 16 | Ht 1.6 m (5' 3") | Wt 84.4 kg (186 lb 1.6 oz) | BMI 32.97 kg/m | BSA 1.94 m General: Alert, NAD. HEENT: No muscle wasting, [...] or spider hemangomota. Laboratory Data: Recent Labs 05/06/18 08/31/18 01/04/19 1219 NA 143 141 141 CR 0.96 0.75 0.86 AST 20 25 23 ALT 12 13 12 TBILI 0.7 0.7 0.8 ALB 3.9 3.6 3.8 WBC 5.6 5.2 4.8 HB 15.1 140 14 PLT 375 336 340 Assessment/Plan: Patient continues to have well controlled AIH and PBC. Stable liver tests and no evidence o f hepatic decompensation. Plan 1. Cont current doses of Imuran and ursodiol 2. Labs [id number] 3. RTC in 1 yr Counseling Time: I [...] Rogers | | | | | | [place], [place] | | | | | | [address] | | | | | | [phone] | | | | | | | | +--------+---------+ + + + documented as of this encounter Visit Diagnoses + + | Diagnosis | + + | Autoimmune hepatitis (HCC) - Primary Autoimmune hepatitis | + + | Primary biliary cholangitis (HCC) | + + documented in this encounter
--- OUTSIDE RECORDS SUMMARY | ~2019-02-11 | XMS | Encounter Summary ---
Demographics + + + | Address | [address] | | | [place] [address] | + + + | Home Phone | | + + + | Preferred Language | Unknown | + + + | Marital Status | | + + + | Episcopalian Affiliation | CAT | + + + [...] + | Roxana Bo | ECON | [address] | | | | | [place] | | | | | [address] | | + + + + + Care Team Providers + +------+ + | Care Sole Assessor Name | Role | Phone | + +------+ + | Ventura Carrasquillo MD | PCP | | + +------+ + Encounter Details +--------+ + + + + | Date | Type | Department | Care Team | Description | +--------+ + + + + | 03/05/ | Documentati | Digestive Health | Lake Dennis MD | | | 2011 | on | [place] [facility] [address] | [address] | | | | | [address] | [place], [place] | | | | | Mailcode: OC8D | [address] | | | | | [facility] | [phone] | | | | | and Healing, | | | | | | [address] | | | | | | [place], [place] | | | | | | [address] | | | | | | [phone] | | | +--------+ + + + [...] [address] | | | | | | [facility] [place] | | | | | | [address] | | | | | | [phone] | | | | | | | | +--------+---------+ + + + documented as of this encounter Procedures + +--------+ + + + | Procedure Name | Priori | Date/Time | Associated Diagnosis | Comments | | | ty | | | | + +--------+ + + + | INR | Routin | 01/01/2012 | | Results for this | | | e | | | procedure are in the | | | | | | results section. | + +--------+ + + + | CBC, WITH | Routin | 01/01/2012 | | Results for this | | DIFFERENTIAL | e | | | procedure are in the | | | | | | results section. | + +--------+ + + + | COMPLETE METABOLIC | Routin | 01/01/2012 | | Results for this | | [...] COMPLETE METABOLIC SET (NA,K,CL,CO2,BUN,CREAT,GLUC,CA,AST,ALT,BILI TOTAL,ALK PHOS,ALB,PROT TOTAL) (01/01/2012) + +---------+ + + + | Component | Value | Ref Range | Performed | Pathologist | | | | | At | Signature | + +---------+ + + + | GLUCOSE, | 83 | mg/dL | [facility] | | | PLASMA | | | LAB - | | | (LAB) | | | [place] | | + +---------+ + + + | BUN, PLASMA | 15 | mg/dL | [facility] | | | (LAB) | | | LAB - | | | | | | [place] | | + +---------+ + + + | CREATININE | 0.72 | mg/dL | [facility] | | | PLASMA | | | LAB - | | | (LAB) | | | [place] | | + +---------+ + + + | ALBUMIN, | 4.2 | g/dL | [facility] | | | [...] + + + | ALK PHOS | 125 | U/L | [facility] | | | | | | LAB - | | | | | | [place] | | + +---------+ + + + | AST(SGOT) | 18 | U/L | [facility] | | | [...] + | POTASSIUM, | 3.4 (L) | mmol/L | [facility] | | [...] [address] | [place] [address] | | | [place] | [address] | | | + + + + + CBC, WITH DIFFERENTIAL (01/01/2012) + + + + + + | Component | Value | Ref Range | Performed | Pathologist | | | | | At | Signature | + + + + + + | WHITE CELL | 4.4 (L) | K/cu mm | [facility] | | | COUNT | | | LAB - | | | | | | [place] | | + + + + + + | HEMOGLOBIN | 16 | g/dL | [facility] | | | | | | LAB - | | | | | | [place] | | + + + + + + | HEMATOCRIT | 50.4 (H) | % | [facility] | | | | | | LAB - | | | | | | [place] | | + + + + + + | PLATELET | 314 | K/cu mm | [facility] | | | COUNT | | | LAB - | | | | | | [place] | | + + + + + + + + | Specimen | + + | Blood - Blood | + + + + + + + | Performing | Address | City/State/Zipcode | Phone Number | | Organization | | | | + + + + + | [facility] - | [address] | [place] [address] | | | [place] | [address] | | | + + + + + INR (01/01/2012) + +-------+ + + + | Component [...] | [address] | [place] [address] | | | [place] | [address] | | | + + + + + documented in this encounter Visit Diagnoses Not on filedocumented in this encounter"
--- OUTSIDE RECORDS SUMMARY | ~2019-02-11 | XMS | Encounter Summary ---
Demographics + + + | Address | [address] | | | [place] [address] | + + + | Home Phone | | + + + | Preferred Language | Unknown | + + + | Marital Status | | + + + | Alevism Affiliation | CAT | + + + | Race | White | + + + | Ethnic Group | Not or | + + + Author + + + | Author | [facility] | + + + | Organization | [facility] | + + + | Address | Unknown | + + + | Phone | Unavailable | + + + Support + + + + + | Name | Relationship | Address | Phone | + + + + + | Roxana Bo | ECON | [address] | | | | | [place] | | | | | [address] | | + + + + + Care Team Providers + +------+ + | Care Metal Tile Setter Name | Role | Phone | + +------+ + | Ventura Carrasquillo MD | PCP | | + +------+ + Encounter Details +--------+ + + + + | Date | Type | Department | Care Team | Description | +--------+ + + + + | 10/03/ | Abstract | Digestive Health | Lake Dennis MD | | | 2010 | | [place] [address] | [address] | | | | | [address] | [place], [place] | | | | | Mailcode: OC8D | [address] | | | | | [facility] | [phone] | | | | | and Healing, | | | | | | [address] | | | | | | [place], [place] | | | | | | [address] | | | | | | [phone] | | | +--------+ + + + [...] [address] | | | | | | [place] | | | | | | [address] | | | | | | [phone] | | | | | | | | +--------+---------+ + + + documented as of this encounter Visit Diagnoses Not on filedocumented in this encounter"
--- OUTSIDE RECORDS SUMMARY | ~2019-02-11 | XMS | Encounter Summary ---
Demographics + + + | Address | [address] | | | [place] [address] | + + + | Home Phone [...] + | Roxana Bo | ECON | [address] | | | | | [place] | | | | | [address] | | + + + + + Care Team Providers + +------+ + | Care Manufacturing Mechanic Name | Role | Phone | + +------+ + | Ventura Carrasquillo MD | PCP | | + +------+ + Encounter Details +--------+--------+ + + + | Date | Type | Department | Care Team | Description | +--------+--------+ + + + | 03/07/ | Refill | Digestive Health | Lake Dennis MD | | | 2009 | | [place] [address] | [address] | | | | | [address] | [place], [place] | | | | | Mailcode: OC8D | [address] | | | | | [facility] | [phone] | | | | | and Healing, | | | | | | [address] | | | | | | [place], [place] | | | | | | [address] | | | | | | [phone] | | | +--------+--------+ + + + [...] [address] | | | | | | [place] | | | | | | [address] | | | | | | [phone] | | | | | | | | +--------+---------+ + + + documented as of this encounter Visit Diagnoses Not on filedocumented in this encounter"
--- OUTSIDE RECORDS SUMMARY | ~2019-02-11 | XMS | Encounter Summary ---
Demographics + + + | Address | [address] | | | [place] [address] | + + + | Home Phone [...] + | Roxana Bo | ECON | [address] | | | | | [place] | | | | | [address] | | + + + + + Care Team Providers + +------+ + | Care Fire Lieutenant Marine Name | Role | Phone | + +------+ + | Ventura Carrasquillo MD | PCP | | + +------+ + Reason for Visit + + + | Reason | Comments | + + + | Blood Test Results | Out side labs from [facility]. 04/03/14. | + + + Encounter Details +--------+ + + + + | Date | Type | Department | Care Team | Description | +--------+ + + + + | 04/11/ | Documentati | Digestive Health | Lake Dnenis MD | Blood Test Results | | 2013 | on | Center at [facility] [address] | [address] | (Out side labs from | | | | [address] | [place], [place] | [facility]. | | | | Mailcode: OC8D | [id number] | 04/03/14.) | | | | [facility] | [phone] | | | | | and Healing, | | | | | | [address] | | | | | | [place], [place] | | | | | | [address] | | | | | | [phone] | | | +--------+ + + + [...] [address] | | | | | | [place], [place] | | | | | | [address] | | | | | | [phone] | | | | | | | | +--------+---------+ + + + documented as of this encounter Procedures + +--------+ + + + | Procedure Name | Priori | Date/Time | Associated Diagnosis | Comments | | | ty | | | | + +--------+ + + + | CBC, WITH | Routin | 04/03/2014 | | Results for this | | DIFFERENTIAL | e | 1:30 PM | | procedure are in the | | | | PST | | results section. | + +--------+ + + + | LIVER SET | Routin | 04/03/2014 | | Results for this | | (AST,ALT,BILI | e | 1:30 PM | | procedure are in the | | TOTAL,BILI | | PST | | results section. | | DIRECT,ALK | | | | | | PHOS,ALB,PROT TOTAL) | | | | | + +--------+ + + + documented in this encounter Results LIVER SET (AST,ALT,BILI TOTAL,BILI DIRECT,ALK PHOS,ALB,PROT TOTAL) (04/03/2014 1:30 PM PST ) + +-------+ + + + | Component [...] +-------+ + + + | BILIRUBIN | 0.11 | mg/dL | [facility] | | | DIRECT | | | LAB - | | | | | | [place] | | + +-------+ + + + | ALBUMIN, | 3.9 | g/dL | [facility] | | | PLASMA | | | LAB - | | | (LAB) | | | [place] | | + +-------+ + + + | AST(SGOT) | 21 [...] - | [address] | [place], [place] | [phone] | | [facility] | | | | + + + + + CBC, WITH DIFFERENTIAL (04/03/2014 1:30 PM PST) + +-------+ + + + | [...] +-------+ + + + | PLATELET | 342 | K/cu mm | [facility] | | [...] + + | [facility] - | [address] | [place] | [phone] | | [place] | | | | + + + + + documented in this encounter Visit Diagnoses Not on filedocumented in this encounter"
--- OUTSIDE RECORDS SUMMARY | ~2019-02-11 | XMS | Encounter Summary ---
Demographics + + + | Address | [address] | | | [place] [address] | + + + | Home Phone [...] + | Roxana Bo | ECON | [address] | | | | | [place] | | | | | [address] | | + + + + + Care Team Providers + +------+ + | Care Tile Edger Name | Role | Phone | + [...] Rd | | | | | | [place], [place] | | | | | | [address] | | | +--------+ + + + [...] [address] | | | | | | [place], [place] | | | | | | [address] | | | | | | [phone] | | | | | | | [...]
--- OUTSIDE RECORDS SUMMARY | ~2019-02-11 | XMS | Encounter Summary ---
Demographics + + + | Address | [address] | | | [place] [address] | + + + | Home Phone | | + + + | Preferred Language | Unknown | + + + | Marital Status | | + + + | Mandaeism Affiliation | CAT | + + + | Race | White | + + + | Ethnic Group | Not or | + + + Author + + + | Author | [facility] | + + + | Organization | [facility] | + + + | Address | Unknown | + + + | Phone | Unavailable | + + + Support + + + + + | Name | Relationship | Address | Phone | + + + + + | Roxana Bo | ECON | [address] | | | | | [place] | | | | | [address] | | + + + + + Care Team Providers + +------+ + | Care Wastewater Treatment Operator Name | Role | Phone | [...] | | | biliary | REFERRING | [place], [place] | | | | | cirrhosis | PROVIDER PER | [address] | | | | | Procedures | PT | Phone: | | | | | [place] | | [phone] | | | | | OFFICE/OUTPT | | Fax: | | | | | | | [phone] | | | | | VISIT,EST,LE | [...] | 2019 | Visit | Center at [facility] [address] | [address] | (HCC) (Primary Dx); | | | | [address] | [place], [place] | Primary biliary | | | | Mailcode: OC8D | [address] | cholangitis (HCC) | | | | [facility] | [phone] | | | | | and Healing, | | | | | | [address] | | | | | | [place], [place] | | | | | | [address] | | | | | | [phone] | | | +--------+---------+ + + + [...] 1,000 Units by mo ut once daily. evketmgzjfht-mmaulzd-dndi-lutein (CENTRUM SILVER ULTRA WOMEN'S) Oral Tablet Take 1 Tab by mouth once daily. mv-mn/lutein/zeax/bilber/hb277 (MACULAR HEALTH FORMULA ORAL) Take by mouth. [place]-3 Fatty Acids-Vitamin E (FISH OIL) 1,000 mg [...] doses of Imuran and ursodiol 2. Labs q6dehopx 3. RTC in 1 yr Counseling Time: [...] [address] | | | | | | [place], [place] | | | | | | [address] | | | | | | [phone] | | | | | | | | +--------+---------+ + + + documented as of this encounter Visit Diagnoses + + | Diagnosis | + + | Autoimmune hepatitis (HCC) - Primary Autoimmune hepatitis | + + | Primary biliary cholangitis (HCC) | + + documented in this encounter
--- OUTSIDE RECORDS SUMMARY | ~2019-02-11 | XMS | Encounter Summary ---
Demographics + + + | Address | [address] | | | [place] [address] | + + + | Home Phone [...] + | Roxana Bo | ECON | [address] | | | | | [place] | | | | | [address] | | + + + + + Care Team Providers + +------+ + | Care Brancher Name | Role | Phone | + +------+ + | Ventura Carrasquillo MD | PCP | | + +------+ + Encounter Details +--------+ + + + + | Date | Type | Department | Care Team | Description | +--------+ + + + + | 04/08/ | Documentati | Digestive Health | Clinic, | | | 2010 | on | [place] [facility] [address] | Gastroenterology | | | | | [address] | | | | | | Mailcode: OC8D | | | | | | [place] for [facility] | | | | | | and Healing, | | | | | | [address] | | | | | | [place], [place] | | | | | | [address] | | | | | | [phone] | | | +--------+ + + + [...] [place] | | | | | | [address] | | | | | | [phone] | | | | | | | | +--------+---------+ + + + documented as of this encounter Visit Diagnoses Not on filedocumented in this encounter"
--- OUTSIDE RECORDS SUMMARY | ~2019-02-11 | XMS | Encounter Summary ---
Demographics + + + | Address | [address] | | | [place] [address] | + + + | Home Phone | | + + + | Preferred Language | Unknown | + + + | Marital Status | | + + + | Yazidi Affiliation | CAT | + + + [...] + | Roxana Bo | ECON | [address] | | | | | [place] | | | | | [address] | | + + + + + Care Team Providers + +------+ + | Care Paper Baling Machine Operator Name | Role | Phone [...] | Medication | | 2010 | | [place] [address] [phone] | [address] | management | | | | [address] | [place], [place] | | | | | Mailcode: OC8D | [address] | | | | | [facility] | [phone] | | | | | and Healing, | | | | | | [address] | | | | | | [place], [place] | | | | | | [address] | | | | | | [phone] | | | +--------+ + + + [...] [address] | | | | | | [place], [place] | | | | | | [address] | | | | | | [phone] | | | | | | | | +--------+---------+ + + + documented as of this encounter Visit Diagnoses Not on filedocumented in this encounter"
--- OUTSIDE RECORDS SUMMARY | ~2019-02-11 | XMS | Encounter Summary ---
Demographics + + + | Address | [address] | | | [place] [address] | + + + | Home Phone | | + + + | Preferred Language | Unknown | + + + | Marital Status | | + + + | Bahai Affiliation | CAT | + + + | Race | White | + + + | Ethnic Group | Not or | + + + Author + + + | Author | [facility] | + + + | Organization | [facility] | + + + | Address | Unknown | + + + | Phone | Unavailable | + + + Support + + + + + | Name | Relationship | Address | Phone | + + + + + | Roxana Bo | ECON | [address] | | | | | [place] | | | | | [address] | | + + + + + Care Team Providers + +------+ + | Care Lowerator Operator Name | Role | Phone | [...] | 2015 | on | Center at [facility] [address] | [address] | (Outside labs from | | | | [address] | [place], [place] | [facility] 10/02/14.) | | | | Mailcode: OC8D | [address] | | | | | [facility] | [phone] | | | | | and [place], | | | | | | [address] | | | | | | [place], [place] | | | | | | [address] | | | | | | [phone] | | | +--------+ + + + [...] [address] | | | | | | [place], [place] | | | | | | [address] | | | | | | [phone] | | | | | | | [...] [place] | | | | | | [place] | | + +---------+ + + + [...] | [facility] | | [place] [address] | | | [place] | | | | + +---------+ + + CBC, [...] [place] | | | | | | [place] | | + +-------+ + + + [...] | [facility] | | [place] [address] | | | [place] | | | | + +---------+ + + documented in this encounter Visit Diagnoses Not on filedocumented in this encounter"
--- OUTSIDE RECORDS SUMMARY | ~2019-02-11 | XMS | Encounter Summary ---
Demographics + + + | Address | [address] | | | [place] [address] | + + + | Home Phone [...] + | Roxana Bo | ECON | [address] | | | | | [place] | | | | | [address] | | + + + + + Care Team Providers + +------+ + | Care Metal Bending Machine Operator Name | Role | Phone | + +------+ + | Ventura Carrasquillo MD | PCP | | + +------+ + Encounter Details +--------+--------+ + + + | Date | Type | Department | Care Team | Description | +--------+--------+ + + + | 03/07/ | Refill | Digestive Health | Lake Dennis MD | | | 2009 | | [place] [address] [address] | [address] | | | | | [address] | [place], [place] | | | | | Mailcode: OC8D | [address] | | | | | [place] [facility] | [phone] | | | | | and Healing, | | | | | | [address] | | | | | | [place], [place] | | | | | | [address] | | | | | | [phone] | | | +--------+--------+ + + + [...] | | | | | | [place] | | | | | | [address] | | | | | | [phone] | | | | | | | | +--------+---------+ + + + documented as of this encounter Visit Diagnoses Not on filedocumented in this encounter"
--- OUTSIDE RECORDS SUMMARY | ~2019-02-11 | XMS | Encounter Summary ---
Demographics + + + | Address | [address] | | | [place] [address] | + + + | Home Phone [...] + + + | Author | [facility] | + + + | Organization | [facility] | + + + | Address | Unknown | + + + | Phone | Unavailable | + + + Support + + + + + | Name | Relationship | Address | Phone | + + + + + | Roxana Bo | ECON | [address] | | | | | [place] | | | | | [address] | | + + + + + Care Team Providers + +------+ + | Care Registrar Assistant Name | Role | Phone | [...] | | | | | (HCC) | [place] | Ave | | | | | Procedures | FAMILY | [place], [place] | | | | | CONSULT TO | MEDICINE | [address] | | | | | HEPATOLOGY | [address] | Phone: | | | | | liver bx | [address] | [phone] | | | | | | [place], | Fax: | | | | | | [place] [address] | [phone] | | | | | | Phone: | | | | | | | [phone] | | | | | | | Fax: | | | | | | | [phone] | | +--------+ + + + + + Encounter Details +--------+---------+ + + + | Date | Type | Department | Care Team | Description | +--------+---------+ + + + | 09/08/ | Office | Digestive Health | Lake Dennis MD | Autoimmune hepatitis | | 2009 | Visit | Center at [facility] [address] | [address] | (HCC); Primary | | | | [address] | [place], [place] | biliary cirrhosis | | | | Mailcode: OC8D | [address] | (HCC) | | | | [facility] | [phone] | | | | | and Healing, | | | | | | [address] | | | | | | [place], [place] | | | | | | [address] | | | | | | [phone] | | | +--------+---------+ + + + [...] + + + | Blood Pressure | 166/90 | 01/09/2010 2:48 PM | | | | | PDT | | + + + + + | Pulse | 72 | 01/09/2010 2:48 PM | | | | | PDT | | + + + + + | Temperature | 36.6 C (97.9 F) | 01/09/2010 2:48 PM | | | | | PDT | | + + + + + | Respiratory Rate | 16 | 01/09/2010 2:48 PM | | | | | PDT | | + + + + + | Oxygen Saturation | - | - | | + + + + + | Inhaled Oxygen | - | - | | | Concentration | | | | + + + + + | Weight | 86 kg (189 lb 9.6 | 01/09/2010 2:48 PM | | | | oz) | PDT | | + + + + + | Height | - | - | | + + + + + | Body Mass Index | 33.59 | 06/15/2009 3:24 PM | | | | | PST | | + + + + + documented in this encounter Progress Notes Marcelle Mcghee MD - 01/09/2010 3:39 PM PDT HEPATOLOGY FOLLOW UP VISIT Diagnoses: 1. Overlap [...] dental implant. Current outpatient prescriptions Medication Sig azathioprine 50 mg Oral Tablet Take 1.5 Tabs by mouth once daily. Administer after meal s. ursodiol 300 mg Oral Capsule Take 3 Caps by mouth once daily at bedtime. Allergy: No Known Allergies Subjective: Ms. Bo is seen in Hepatology clinic for follow up of Autoimmune Hepatitis/ Primary Biliary Cirrhosis. She states that her current symptoms are fatigue. She denies abdominal pain , nausea and vomiting, fluid accumulation in feet/ankles, fluid a ccumulation in abdomen, blood in bowel movements or black tarry bm's, memory or concentratio n changes, weight loss, early satiety, chest pain, fevers, cough and depression. She has been taking her imuran and ursodiol as directed and has experienced no significant medication side effects. Review of Systems: All other systems negative. Social History: Currently smoking: no Current alcohol use: no Currently employed: no Good social support: yes Objective: BP 166/90 | Pulse 72 | Temp (Src) 36.6 C (97.9 F) (Oral) | RR 16 | Wt 86.002 kg (189 lb 9.6 oz) General: Alert, NAD. HEENT: Normal, sclerae anicteric. Respiration: Normal CTAB, and good air exchange. Cardiac: Regular rate and rhythm. Abdomen: obese, soft, non-distended, normal bowel sounds, no hepatosplenomegaly, no fluid w ave, no other masses noted. Neuro: Normal, alert with no asterixis. Psych: Normal speech pattern and thought process linear. Extremities: Normal, no edema, or skin discolorations. Skin: Warm and dry without rashes, lesions or spider hemangomota. Laboratory Data: Outside labs from 01/02/2010: CHEM-7 reviewed and wnl, CBC reviewed and wnl ast 23, alt 11, alp 129, t.bili 0.4, inr 0.9 Assessment/Plan: 59 yo female with mixed AIH/PBC liver disease here for follow-up. She is currently feeling well, tolerating her medications and her LFTs are essentially normal. Plan: -outside subsurface augmentee operator or PCP to check Vit A and D levels and order bone density study (patients with cholestatic liver disease can have impaired absorption of fat soluble vitami ns) -continue MVI and begin Ca/Vit D supplementation -continue imuran 75mg qday and ursodiol 900mg qday -consider decreasing imuran to 50mg qday in 6-12 mths -CBC, CMP, INR q 3 mths (external lab order placed) -RTC in 6 mths Counseling Time: I spent more than 25 minutes with this patient, over half of which was sp ent in education and counseling the patient regarding management of medications and associat ed toxicities.. MARCELLE MCGHEE MD ulissa Wayne 01/09/2010 3:34 PM PDTExternal standing lab orders were given to the pt.Electronically laverne d by Julissa Wayne at 01/09/2010 3:34 PM Lake Mendiola MD - 01/09/2010 3:20 PM PDTI pers onally interviewed the patient, performed the pertinent parts of the physical examination an d personally formulated the plan with the resident. I agree with the residents documentatio n and have documented any additions or exceptions. documented in this encou nter Plan of Treatment +--------+---------+ + + + | Date | Type | Specialty | Care Team | Description | +--------+---------+ + + + | 01/26/ | Office | Hepatology | Lake Dennis MD | | | 2020 | Visit | | [address] | | | | | | [place], [place] | | | | | | [address] | | | | | | [phone] | | | | | | | | +--------+---------+ + + + documented as of this encounter Procedures + +--------+ + + + | Procedure Name | Priori | Date/Time | Associated Diagnosis | Comments | | | ty | | | | + +--------+ + + + | INR | Routin | 04/03/2010 | Autoimmune | Results for this | | | e | | hepatitis (HCC) | procedure are in the | | | | | Primary biliary | results section. | | | | | cirrhosis (HCC) | | + +--------+ + + + | CBC, WITH | Routin | 04/03/2010 | Autoimmune | Results for this | | DIFFERENTIAL | e | | hepatitis (HCC) | procedure are in the | | | | | Primary biliary | results section. | | | | | cirrhosis (HCC) | | + +--------+ + + + | COMPLETE METABOLIC | Routin | 04/03/2010 | Autoimmune | Results for this | | SET | e | | hepatitis (HCC) | procedure are in the | | (NA,K,CL,CO2,BUN,CRE | | | Primary biliary | results section. | | AT,GLUC,CA,AST,ALT,B | | | cirrhosis (HCC) | | | JONH TOTAL,ALK | | | | | | PHOS,ALB,PROT TOTAL) | | | | | + +--------+ + + + | LAB REPORTS | | 01/09/2010 | | Results for this | | | | 3:33 PM | | procedure are in the | | | | PDT | | results section. | + +--------+ + + + | LAB REPORTS | | 01/09/2010 | | Results for this | | | | 3:33 PM | | procedure are in the | | | | PDT | | results section. | + +--------+ + + + | LAB REPORTS | | 01/02/2010 | | Results for this | | | | 12:00 AM | | procedure are in the | | | | PDT | | results section. | + +--------+ + + + documented in this encounter Results INR (04/03/2010) + +-------+ + + + | Component | Value | Ref Range | Performed | Pathologist | | | | | At | Signature | + +-------+ + + + | INR | 0.9 | INR | [facility] | | | | | | LAB - | | | | | | [place] | | + +-------+ + + + + + | Specimen | + + | Blood - Blood | + + + + + + + | Performing | Address | City/State/Zipcode | Phone Number | | Organization | | | | + + + + + | [facility] - | [address] | [place] | [phone] | | [place] | | | | + + + + + | [facility] - | | [place], [place] | | | [place] | | | | + + + + + CBC, WITH DIFFERENTIAL (04/03/2010) + +-------+ + + + | Component | Value | Ref Range | Performed | Pathologist | | | | | At | Signature | + +-------+ + + + | WHITE CELL | 5.9 | K/cu mm | [facility] | | | COUNT | | | LAB - | | | | | | [place] | | + +-------+ + + + | RED CELL | | M/cu mm | [facility] | | | COUNT | | | LAB - | | | | | | [place] | | + +-------+ + + + | HEMOGLOBIN | 14.1 | g/dL | [facility] | | | | | | LAB - | | | | | | [place] | | + +-------+ + + + | HEMATOCRIT | 43.7 | % | [facility] | | | | | | LAB - | | | | | | [place] | | + +-------+ + + + | MCV | | fL | [facility] | | | | | | LAB - | | | | | | [place] | | + +-------+ + + + | MCH | | pg | [facility] | | | | | | LAB - | | | | | | [place] | | + +-------+ + + + | MCHC | | g/dL | [facility] | | | | | | LAB - | | | | | | [place] | | + +-------+ + + + | PLATELET | 287 | K/cu mm | [facility] | | | COUNT | | | LAB - | | | | | | [place] | | + +-------+ + + + | NEUTROPHIL | | % | [facility] | | | % | | | LAB - | | | | | | [place] | | + +-------+ + + + | LYMPHOCYTE | | % | [facility] | | | % | | | LAB - | | | | | | [place] | | + +-------+ + + + | MONOCYTE % | | % | [facility] | | | | | | LAB - | | | | | | [place] | | + +-------+ + + + | EOS % | | % | [facility] | | | | | | LAB - | | | | | | [place] | | + +-------+ + + + | BASO % | | % | [facility] | | | | | | LAB - | | | | | | [place] | | + +-------+ + + + | RDW | | % | [facility] | | | | | | LAB - | | | | | | [place] | | + +-------+ + + + | MPV | | fL | [facility] | | | | | | LAB - | | | | | | [place] | | + +-------+ + + + | NEUTROPHIL | | K/cu mm | [facility] | | | # | | | LAB - | | | | | | [place] | | + +-------+ + + + | LYMPHOCYTE | | K/cu mm | [facility] | | | # | | | LAB - | | | | | | [place] | | + +-------+ + + + | MONOCYTE # | | K/cu mm | [facility] | | | | | | LAB - | | | | | | [place] | | + +-------+ + + + | EOS # | | K/cu mm | [facility] | | | | | | LAB - | | | | | | [place] | | + +-------+ + + + | BASO # | | | [facility] | | | | | | LAB - | | | | | | [place] | | + +-------+ + + + + + | Specimen | + + | Blood - Blood | + + + + + + + | Performing | Address | City/State/Zipcode | Phone Number | | Organization | | | | + + + + + | [facility] - | [address] | [place], [place] | [phone] | | [place] | | | | + + + + + | [facility] - | | [place], [place] | | | [place] | | | | + + + + + COMPLETE METABOLIC SET (NA,K,CL,CO2,BUN,CREAT,GLUC,CA,AST,ALT,BILI TOTAL,ALK PHOS,ALB,PROT TOTAL) (04/03/2010) + +---------+ + + + | Component | Value | Ref Range | Performed | Pathologist | | | | | At | Signature | + +---------+ + + + | GLUCOSE, | 86 | mg/dL | [facility] | | | PLASMA | | | LAB - | | | (LAB) | | | [place] | | + +---------+ + + + | BUN, PLASMA | 13 | mg/dL | [facility] | | | (LAB) | | | LAB - | | | | | | [place] | | + +---------+ + + + | CREATININE | 0.78 | mg/dL | [facility] | | | PLASMA | | | LAB - | | | (LAB) | | | [place] | | + +---------+ + + + | TOTAL | | g/dL | [facility] | | | PROTEIN, | | | LAB - | | | PLASMA | | | [place] | | | (LAB) | | | | | + +---------+ + + + | ALBUMIN, | 3.8 | g/dL | [facility] | | | PLASMA | | | LAB - | | | (LAB) | | | [place] | | + +---------+ + + + | CALCIUM, | | mg/dL | [facility] | | | PLASMA | | | LAB - | | | (LAB) | | | [place] | | + +---------+ + + + | BILIRUBIN | 0.6 | Transcutaneous | [facility] | | | TOTAL | | Bilirubinometer | LAB - | | | | | | [place] | | + +---------+ + + + | ALK PHOS | 99 | U/L | [facility] | | | | | | LAB - | | | | | | [place] | | + +---------+ + + + | AST(SGOT) | 19 | U/L | [facility] | | | | | | LAB - | | | | | | [place] | | + +---------+ + + + | SODIUM, | 137 | mmol/L | [facility] | | | PLASMA | | | LAB - | | | (LAB) | | | [place] | | + +---------+ + + + | POTASSIUM, | 3.5 (L) | mmol/L | [facility] | | | PLASMA | | | LAB - | | | (LAB) | | | [place] | | + +---------+ + + + | CHLORIDE, | | mmol/L | [facility] | | | PLASMA | | | LAB - | | | (LAB) | | | [place] | | + +---------+ + + + | TOTAL CO2, | | mmol/L | [facility] | | | PLASMA | | | LAB - | | | (LAB) | | | [place] | | + +---------+ + + + | ALT (SGPT) | 9 | U/L | [facility] | | | | | | LAB - | | | | | | [place] | | + +---------+ + + + + + | Specimen | + + | Blood - Blood | + + + + + + + | Performing | Address | City/State/Zipcode | Phone Number | | Organization | | | | + + + + + | [facility] - | [address] | [place], [place] | [phone] | | [place] | | | | + + + + + | [facility] - | | [place], [place] | | | [place] | | | | + + + + + LAB REPORTS (01/09/2010 3:33 PM PDT) + + + | Narrative | Performed At | + + + | | | + + + + + | Procedure Note | + + | Rg Richards - 01/09/2010 3:33 PM PDT | | | + + LAB REPORTS (01/09/2010 3:33 PM PDT) + + + | Narrative | Performed At | + + + | | | + + + + + | Procedure Note | + + | Other, Faculty - 01/09/2010 3:33 PM PDT | | | + + LAB REPORTS (01/02/2010 12:00 AM PDT) + + + | Narrative | Performed At | + + + | | | + + + + + | Procedure Note | + + | Rg Richards - 01/02/2010 12:00 AM PDT | | | + + documented in this encounter Visit Diagnoses + + | Diagnosis | + + | Autoimmune hepatitis (HCC) Autoimmune hepatitis | + + | Primary biliary cirrhosis (HCC) Biliary cirrhosis | + + documented in this encounter"
--- OUTSIDE RECORDS SUMMARY | ~2019-02-11 | XMS | Encounter Summary ---
Demographics + + + | Address | [address] | | | [place] [address] | + + + | Home Phone | | + + + | Preferred Language | Unknown | + + + | Marital Status | | + + + | Jew Affiliation | CAT | + + + [...] + | Roxana Bo | ECON | [address] | | | | | [place] | | | | | [address] | | + + + + + Care Team Providers + +------+ + | Care Special Loan Officer Name | Role | Phone | [...] | | | Procedures | FAMILY | [place], [place] | | | | | CONSULT TO | MEDICINE | [address] | | | | | HEPATOLOGY | [address] | Phone: | | | | | liver bx | [address] | [phone] | | | | | | [place], | Fax: | | | | | | [place] [address] | [phone] | | | | | | Phone: | | | | | | | [phone] | | | | | | | Fax: | | | | | | | [phone] | | +--------+ + + + + + Encounter Details +--------+---------+ + + + | Date | Type | Department | Care Team | Description | +--------+---------+ + + + | 12/07/ | Office | Digestive Health | Lake Ontiveros MD | Autoimmune hepatitis | | 2010 | Visit | Center at [facility] [address] | [address] | (HCC); Primary | | | | [address] | [place], [place] | biliary cirrhosis | | | | Mailcode: OC8D | [address] | (HCC) | | | | [facility] | [phone] | | | | | and Healing, | | | | | | [address] | | | | | | [place], [place] | | | | | | [address] | | | | | | [phone] | | | +--------+---------+ + + + [...] + + + | Blood Pressure | 152/84 | 04/09/2011 1:44 PM | | | | | PST | | + + + + + | Pulse | 89 | 04/09/2011 1:44 PM | | | | | PST | | + + + + + | Temperature | 36.7 C (98.1 F) | 04/09/2011 1:44 PM | | | | | PST | | + + + + + | Respiratory Rate | 13 | 04/09/2011 1:44 PM | | | | | PST | | + + + + + | Oxygen Saturation | - | - | | + + + + + | Inhaled Oxygen | - | - | | | Concentration | | | | + + + + + | Weight | 82.1 kg (181 lb) | 04/09/2011 1:44 PM | | | | | PST | | + + + + + | Height | 160 cm (5' 3") | 04/09/2011 1:44 PM | | | | | PST | | + + + + + | Body Mass Index | 32.06 | 04/09/2011 1:44 PM | | | | | PST | | + + + + + documented in this encounter Progress Notes Kay Galdamez MA - 04/09/2011 3:04 PM PST Addended by: KAY GALDAMEZ CMA on: 04/09/2011 03:0 4 PM Modules accepted: Orders Lake Loera MD - 11/2010 1:39 PM PST HEPATOLOGY FOLLOW UP VISIT Diagnoses: 1. Overlap [...] every seven days . azaTHIOprine 50 mg Oral Tablet Take 1 Tab by mouth once daily. Administer after meals. clindamycin 1 % Topical Swab Apply 1 Applicator to affected area once daily. Jzrhztgvxjl-Prdcxsogv-Szh C-Mn (GLUCOSAMINE CHONDROITIN MAXSTR) 500-400 mg Oral Capsule Take 2 Tabs by mouth once daily. zlzhjrhaonne-fhavuzy-giozgbv-folic acid chewable 200-0.4 mg Oral Tablet, Chewable Take 2 Tabs by mouth once daily. pcuaraledxhb-pkqxsbs-cfgb-lutein (CENTRUM SILVER ULTRA WOMEN'S) Oral Tablet Take [...] employed: yes Good social support: yes Objective: There were no vitals taken for this visit. General: Alert, NAD. HEENT: Normal, sclerae anicteric. [...] Data: SODIUM, PLASMA (LAB) (mmol/L) Date Value 01/02/2011 139 10/02/2010 141 10/02/2010 141 07/02/2010 141 SODIUM-[facility] (mmol/L) Date Value 02/14/2009 144* CREATININE PLASMA (LAB) (mg/dL) Date Value 01/02/2011 0.76 10/02/2010 0.77 10/02/2010 0.77 07/02/2010 0.81 CREATININE-[facility] (mg/dL) Date Value 02/14/2009 0.7 AST(SGOT) (U/L) Date Value 01/02/2011 24 10/02/2010 20 10/02/2010 20 07/02/2010 17 AST-[facility] (U/L) Date Value 02/14/2009 69* ALT (SGPT) (U/L) Date Value 01/02/2011 12 10/02/2010 13 07/02/2010 9 ALT-[facility] (U/L) Date Value 02/14/2009 46 BILIRUBIN TOTAL (Transcutaneous Bilirubinometer) Date Value 01/02/2011 0.5 10/02/2010 0.5 10/02/2010 0.5 07/02/2010 0.5 BILIRUBIN, TOTAL-[facility] (mg/dL) Date Value 02/14/2009 0.6 ALBUMIN, PLASMA (LAB) (g/dL) Date Value 01/02/2011 4.1 10/02/2010 3.9 10/02/2010 3.9 07/02/2010 4.0 ALBUMIN-[facility] (g/dL) Date Value 02/14/2009 3.4 WHITE CELL COUNT (K/cu mm) Date Value 01/02/2011 5.6 10/02/2010 5.5 10/02/2010 5.5 07/02/2010 5.7 WHITE CELL COUNT - [facility] (K/cu mm) Date Value 02/14/2009 5.4 HEMOGLOBIN (g/dL) Date Value 01/02/2011 15.1 10/02/2010 14.7 10/02/2010 14.7 07/02/2010 14.6 HEMOGLOBIN, BLOOD - [facility] (g/dL) Date Value 02/14/2009 14.0 MCV (fL) Date Value 02/20/2009 Not Recd MCV - [facility] (fL) Date Value 02/14/2009 89.7 PLATELET COUNT (K/cu mm) Date Value 01/02/2011 291 10/02/2010 264 10/02/2010 264 07/02/2010 313 PLATELET COUNT, BLOOD - [facility] (K/cu mm) Date Value 02/14/2009 366 Reviewed 04/03/2011 liver tests, which are normal. Assessment/Plan: Stable from a liver disease standpoint. Normal liver tests on current treatment regimen. Plan 1) cont current meds 2) labs [id number]: CMP, CBC, plts, diff, INR 3) RTC in 1 yr Counseling Time: [...] [address] | | | | | | [place], [place] | | | | | | [address] | | | | | | [phone] | | | | | | | | +--------+---------+ + + + documented as of this encounter Visit Diagnoses + + | Diagnosis | + + | Autoimmune hepatitis (HCC) Autoimmune hepatitis | + + | Primary biliary cirrhosis (HCC) Biliary cirrhosis | + + documented in this encounter
--- OUTSIDE RECORDS SUMMARY | ~2019-02-11 | XMS | Encounter Summary ---
Demographics + + + | Address | [address] | | | [place] [address] | + + + | Home Phone [...] + + + | Author | [facility] | + + + | Organization | [facility] | + + + | Address | Unknown | + + + | Phone | Unavailable | + + + Support + + + + + | Name | Relationship | Address | Phone | + + + + + | Roxana Bo | ECON | [address] | | | | | [place] | | | | | [address] | | + + + + + Care Team Providers + +------+ + | Care Topper Press Operator Name | Role | Phone [...] Test Results | | 2017 | | [place] [id number] | [address] | | | | | [address] | [place], [place] | | | | | Mailcode: [id number] | [id number] | | | | | [facility] | [phone] | | | | | [facility], | | | | | | [address] | | | | | | [place], [place] | | | | | | [address] | | | | | | [phone] | | | +--------+ + + + [...] [address] | | | | | | [place], [place] | | | | | | [address] | | | | | | [phone] | | | | | | | | +--------+---------+ + + + documented as of this encounter Visit Diagnoses Not on filedocumented in this encounter"
--- OUTSIDE RECORDS SUMMARY | ~2019-02-11 | XMS | Encounter Summary ---
Demographics + + + | Address | [address] | | | [place] [address] | + + + | Home Phone [...] + | Roxana Bo | ECON | [address] | | | | | [place] | | | | | [address] | | + + + + + Care Team Providers + +------+ + | Care Electric Motorman Name | Role | Phone | + [...] Test Results | | 2017 | | [place] [address] [address] | [address] | | | | | [address] | [place], [place] | | | | | Mailcode: OC8D | [address] | | | | | [facility] | [phone] | | | | | and Healing, | | | | | | [address] | | | | | | [place], [place] | | | | | | [address] | | | | | | [phone] | | | +--------+ + + + [...] [address] | | | | | | [place], [place] | | | | | | [address] | | | | | | [phone] | | | | | | | | +--------+---------+ + + + documented as of this encounter Visit Diagnoses Not on filedocumented in this encounter"
--- OUTSIDE RECORDS SUMMARY | ~2019-02-11 | XMS | Encounter Summary ---
Demographics + + + | Address | [address] | | | [place] [address] | + + + | Home Phone [...] + | Roxana Bo | ECON | [address] | | | | | [place] | | | | | [address] | | + + + + + Care Team Providers + +------+ + | Care Tank Carpenter Name | Role | Phone | + [...] | +--------+ + + + + | 07/05/ | MyChart | Digestive Health | Lake Dennis MD | RE: Test results | | 2012 | Encounter | Center at [facility] [address] | [address] | | | | | [address] | [place], [place] | | | | | Mailcode: OC8D | [address] | | | | | [facility] | [phone] | | | | | and Healing, | | | | | | [address] | | | | | | [place], [place] | | | | | | [address] | | | | | | [phone] | | | +--------+ + + + [...] [address] | | | | | | [place], [place] | | | | | | [address] | | | | | | [phone] | | | | | | | | +--------+---------+ + + + documented as of this encounter Procedures + +--------+ + + + | Procedure Name | Priori | Date/Time | Associated Diagnosis | Comments | | | ty | | | | + +--------+ + + + | CBC, WITH | Routin | 07/02/2012 | | Results for this | | DIFFERENTIAL | e | 11:00 AM | | procedure are in the | | | | PST | | results section. | + +--------+ + + + | COMPLETE METABOLIC | Routin | 07/02/2012 | | Results for this | | SET | e | 11:00 AM | | procedure are in the | | (NA,K,CL,CO2,BUN,CRE | | PST | | results section. | | AT,GLUC,CA,AST,ALT,B | | | | | | JONH TOTAL,ALK | | | | | | PHOS,ALB,PROT TOTAL) | | | | | + +--------+ + + + documented in this encounter Results CBC, WITH DIFFERENTIAL (07/02/2012 11:00 AM PST) + +-------+ + + + [...] +-------+ + + + | HEMATOCRIT | 44.2 | % | [facility] | | | [...] +-------+ + + + | PLATELET | [address] [...] - | | | | | | [place] | | + +-------+ + + + [...] [address] | [place] | [phone] | | [place] | | | | + + + + + COMPLETE METABOLIC SET (NA,K,CL,CO2,BUN,CREAT,GLUC,CA,AST,ALT,BILI TOTAL,ALK PHOS,ALB,PROT TOTAL) (07/02/2012 11:00 AM PST) + +---------+ + + + | Component | Value | Ref Range | Performed | Pathologist | | | | | At | Signature | + +---------+ + + + | GLUCOSE, | 90 [...] +---------+ + + + | CREATININE | 0.70 | mg/dL | [facility] | | | [...] + + + | ALK PHOS | 114 | U/L | [facility] | | | | | | LAB - | | | | | | [place] | | + +---------+ + + + | AST(SGOT) | 20 | U/L | [facility] | | | | | | LAB - | | | | | | [place] | | + +---------+ + + + | SODIUM, | 135 | mmol/L | [facility] | | | [...] + + | [facility] - | [address] | [place], [place] | [phone] | | [place] | | | | + + + + + documented in this encounter Visit Diagnoses Not on filedocumented in this encounter"
--- OUTSIDE RECORDS SUMMARY | ~2019-02-11 | XMS | Encounter Summary ---
Demographics + + + | Address | [address] | | | [place] [address] | + + + | Home Phone | | + + + | Preferred Language | Unknown | + + + | Marital Status | | + + + | Taoist Affiliation | CAT | + + + | Race | White | + + + | Ethnic Group | Not or | + + + Author + + + | Author | [facility] | + + + | Organization | [facility] | + + + | Address | Unknown | + + + | Phone | Unavailable | + + + Support + + + + + | Name | Relationship | Address | Phone | + + + + + | Roxana Bo | ECON | [address] | | | | | [place] | | | | | [address] | | + + + + + Care Team Providers + +------+ + | Care Conservation Engineer Name | Role | Phone | + +------+ + | Ventura Carrasquillo MD | PCP | | + +------+ + Encounter Details +--------+ + + + + | Date | Type | Department | Care Team | Description | +--------+ + + + + | 05/11/ | MyChart | Digestive Health | Lake Dennis MD | RE: Blood Work | | 2019 | Encounter | [place] at [facility] [address] | [address] | | | | | [address] | [place], [place] | | | | | Mailcode: OC8D | [address] | | | | | [place] [facility] | [phone] | | | | | and Healing, | | | | | | [address] | | | | | | [place], [place] | | | | | | [address] | | | | | | [phone] | | | +--------+ + + + [...] | 2020 | Visit | | [address] | | | | | | [place], [place] | | | | | | [address] | | | | | | [phone] | | | | | | | | +--------+---------+ + + + documented as of this encounter Procedures + +--------+ + + + | Procedure Name | Priori | Date/Time | Associated Diagnosis | Comments | | | ty | | | | + +--------+ + + + | COMPLETE METABOLIC | Routin | 05/06/2018 | | Results for this | | SET | e | | | procedure are in the | | (NA,K,CL,CO2,BUN,CRE | | | | results section. | | AT,GLUC,CA,AST,ALT,B | | | | | | JONH TOTAL,ALK | | | | | | PHOS,ALB,PROT TOTAL) | | | | | + +--------+ + + + | CBC ONLY | Routin | 05/06/2018 | | Results for this | | | e | | | procedure are in the | | | | | | results section. | + +--------+ + + + documented in this encounter Results COMPLETE METABOLIC SET (NA,K,CL,CO2,BUN,CREAT,GLUC,CA,AST,ALT,BILI TOTAL,ALK PHOS,ALB,PROT TOTAL) (05/06/2018) + +---------+ + + + | Component | Value | Ref Range | Performed | Pathologist | | | | | At | Signature | + +---------+ + + + | GLUCOSE, | 87 | mg/dL | NON [facility] | | | PLASMA | | | LAB | | | (LAB) | | | | | + +---------+ + + + | BUN, PLASMA | 19 | mg/dL | NON [facility] | | | (LAB) | | | LAB | | + +---------+ + + + | CREATININE | 0.96 | mg/dL | NON [facility] | | | PLASMA | | | LAB | | | (LAB) | | | | | + +---------+ + + + | ALBUMIN, | 3.9 | g/dL | NON [facility] | | | PLASMA | | | LAB | | | (LAB) | | | | | + +---------+ + + + | BILIRUBIN | 0.7 | Transcutaneous | NON [facility] | | | TOTAL | | Bilirubinometer | LAB | | + +---------+ + + + | ALK PHOS | 177 (H) | U/L | NON [facility] | | | | | | LAB | | + +---------+ + + + | AST(SGOT) | 20 | U/L | NON [facility] | | | | | | LAB | | + +---------+ + + + | SODIUM, | 143 | mmol/L | NON [facility] | | [...] ALT (SGPT) | 12 | U/L | NON [facility] | | [...] | + +---------+ + + CBC ONLY (05/06/2018) + + + + + + | Component | Value | Ref Range | Performed | Pathologist | | | | | At | Signature | + + + + + + | WHITE CELL | 5.6 | K/cu mm | NON [facility] | | | COUNT | | | LAB | | + + + + + + | RED CELL | 4.99 | M/cu mm | NON [facility] | | | COUNT | | | LAB | | + + + + + + | HEMOGLOBIN | 15.1 | g/dL | NON [facility] | | | | | | LAB | | + + + + + + | HEMATOCRIT | 45.8 (H) | % | NON [facility] | | | | | | LAB | | + + + + + + | PLATELET | 375 | K/cu mm | NON [facility] | | | COUNT | | | LAB | | + + + + + [...]
--- OUTSIDE RECORDS SUMMARY | ~2019-02-11 | XMS | Encounter Summary ---
Demographics + + + | Address | [address] | | | [place] [address] | + + + | Home Phone [...] + | Roxana Bo | ECON | [address] | | | | | [place] | | | | | [address] | | + + + + + Care Team Providers + +------+ + | Care Registered Diet Technician Name | Role | Phone | [...] | 2016 | on | Center at [facility] [address] | [address] | (Outside labs from | | | | [address] | [place], [place] | [facility] 05/07/15.) | | | | Mailcode: OC8D | [phone] | | | | | [facility] | [phone] | | | | | and Healing, | | | | | | [address] | | | | | | [place], [place] | | | | | | [address] | | | | | | [phone] | | | +--------+ + + + [...] [address] | | | | | | [place], [place] | | | | | | [address] | | | | | | [phone] | | | | | | | [...] [address] | [place] | [phone] | | [place] | | | | [...] + + | [facility] - | [address] | [place] | [phone] | | [place] | | | | + + + + + documented in this encounter Visit Diagnoses Not on filedocumented in this encounter"
--- OUTSIDE RECORDS SUMMARY | ~2019-02-11 | XMS | Encounter Summary ---
Demographics + + + | Address | [address] | | | [place] [address] | + + + | Home Phone [...] + | Roxana Bo | ECON | [address] | | | | | [place] | | | | | [address] | | + + + + + Care Team Providers + +------+ + | Care Marine Engineer Cpvec Name | Role | Phone | + +------+ + | Ventura Carrasquillo MD | PCP | | + +------+ + Reason for Visit + + + | Reason | Comments | + + + | Medication requested | [facility] | + + + Encounter Details +--------+ + + + + | Date | Type | Department | Care Team | Description | +--------+ + + + + | 03/24/ | Telephone | Digestive Health | Lake Dennis MD | Medication requested | | 2010 | | Center at [facility] [address] | [address] | ([place] and [place]) | | | | [address] | [place], [place] | | | | | Mailcode: OC8D | [phone] | | | | | [facility] | [phone] | | | | | and Healing, | | | | | | [address] | | | | | | [place], [place] | | | | | | [address] | | | | | | [phone] | | | +--------+ + + + [...] [address] | | | | | | [place], [place] | | | | | | [address] | | | | | | [phone] | | | | | | | | +--------+---------+ + + + documented as of this encounter Visit Diagnoses Not on filedocumented in this encounter"
--- OUTSIDE RECORDS SUMMARY | ~2019-02-11 | XMS | Encounter Summary ---
Demographics + + + | Address | [address] | | | [place] [address] | + + + | Home Phone [...] + | Roxana Bo | ECON | [address] | | | | | [place] | | | | | [address] | | + + + + + Care Team Providers + +------+ + | Care Electronic Gaming Device Supervisor Name | Role | Phone | [...] Results | | 2014 | Encounter | [place] at [facility] [address]85 | [address] | | | | | [address] | [place], [place] | | | | | Mailcode: OC8D | [address] | | | | | [facility] | [phone] | | | | | and Healing, | | | | | | [address] | | | | | | [place], [place] | | | | | | [address] | | | | | | [phone] | | | +--------+ + + + [...] [place] | | | | | | [address] | | | | | | [phone] | | | | | | | | +--------+---------+ + + + documented as of this encounter Visit Diagnoses Not on filedocumented in this encounter"
--- OUTSIDE RECORDS SUMMARY | ~2019-02-11 | XMS | Encounter Summary ---
Demographics + + + | Address | [address] | | | [place] [address] | + + + | Home Phone [...] + | Roxana Bo | ECON | [address] | | | | | [place] | | | | | [address] | | + + + + + Care Team Providers + +------+ + | Care Axminster Weaver Name | Role | Phone | + +------+ + | No Pcp Per Patient | PCP | Unavailable | + +------+ + Encounter Details +--------+ + + + + | Date | Type | Department | Care Team | Description | +--------+ + + + + | 11/26/ | MyChart | Digestive Health | Lake Dennis MD | RE: Medication | | 2016 | Encounter | [place] at [facility] [address]85 | [address] | question | | | [address] | [place], [place] | | | | | Mailcode: OC8D | [address] | | | | | [place] [facility] | [phone] | | | | | and Healing, | | | | | | [address] | | | | | | [place], [place] | | | | | | [address] | | | | | | [phone] | | | +--------+ + + + [...] [address] | | | | | | [place] | | | | | | [address] | | | | | | [phone] | | | | | | | | +--------+---------+ + + + documented as of this encounter Visit Diagnoses Not on filedocumented in this encounter"
--- OUTSIDE RECORDS SUMMARY | ~2019-02-11 | XMS | Encounter Summary ---
Demographics + + + | Address | [address] | | | [place] [address] | + + + | Home Phone | | + + + | Preferred Language | Unknown | + + + | Marital Status | | + + + | Amish Affiliation | CAT | + + + [...] [place] | | | | | [address] | | + + + + + Care Team Providers + +------+ + | Care School Transportation Supervisor Name | Role | Phone | + +------+ + | Ventura Carrasquillo MD | PCP | | + +------+ + Reason for Visit + + + | Reason | Comments | + + + | Blood Test Results | Outside labs from [facility] 01/08/18. | + + + Encounter Details +--------+ + + + + | Date | Type | Department | Care Team | Description | +--------+ + + + + | 01/25/ | Documentati | Digestive Health | Lake Dennis MD | Blood Test Results | | 2018 | on | Center at [facility] [address] | [address] | (Outside labs from | | | | [address] | [place], [place] | [facility] 01/08/18.) | | | | Mailcode: OC8D | [id number] | | | | | [facility] | [phone] | | | | | and [place], | | | | | | [address] | | | | | | [place], [place] | | | | | | [address] | | | | | | [phone] | | | +--------+ + + + [...] [address] | | | | | | [place], [place] | | | | | | [address] | | | | | | [phone] | | | | | | | | +--------+---------+ + + + documented as of this encounter Procedures + +--------+ + + + | Procedure Name | Priori | Date/Time | Associated Diagnosis | Comments | | | ty | | | | + +--------+ + + + | CBC, WITH | Routin | 01/08/2018 | | Results for this | | DIFFERENTIAL | e | 10:45 AM | | procedure are in the | | | | PDT | | results section. | + +--------+ + + + | COMPLETE METABOLIC | Routin | 01/08/2018 | | Results for this | | SET | e | 10:45 AM | | procedure are in the | | (NA,K,CL,CO2,BUN,CRE | | PDT | | results section. | | AT,GLUC,CA,AST,ALT,B | | | | | | JONH TOTAL,ALK | | | | | | PHOS,ALB,PROT TOTAL) | | | | | + +--------+ + + + documented in this encounter Results COMPLETE METABOLIC SET (NA,K,CL,CO2,BUN,CREAT,GLUC,CA,AST,ALT,BILI TOTAL,ALK PHOS,ALB,PROT TOTAL) (01/08/2018 10:45 AM PDT) + + + + + + | Component | Value | Ref Range | Performed | Pathologist | | | | | At | Signature | + + + + + + | GLUCOSE, | 91 | mg/dL | [facility] | | | PLASMA | | | LAB - | | | (LAB) | | | [place] | | + + + + + + | BUN, PLASMA | 12 | mg/dL | [facility] | | | (LAB) | | | LAB - | | | | | | [place] | | + + + + + + | CREATININE | 0.68 (L) | mg/dL | [facility] | | | PLASMA | | | LAB - | | | (LAB) | | | [place] | | + + + + + + | ALBUMIN, | 3.5 [...] + + + | ALK PHOS | 136 (H) | U/L | [facility] | | | | | | LAB - | | | | | | [place] | | + + + + + + | AST(SGOT) | 24 | U/L | [facility] | | | | | | LAB - | | | | | | [place] | | + + + + + + | SODIUM, | 142 | mmol/L | [facility] | | | PLASMA | | | LAB - | | | (LAB) | | | [place] | | + + + + + + | POTASSIUM, | 3.8 | mmol/L | [facility] | | | PLASMA | | | LAB - | | | (LAB) | | | [place] | | + + + + + + | ALT (SGPT) | 16 | U/L | [facility] | [...] [address] | [place] | [phone] | | [place] | | | | + + + + + CBC, WITH DIFFERENTIAL (01/08/2018 10:45 AM PDT) + +---------+ + + + | Component | Value | Ref Range | Performed | Pathologist | | | | | At | Signature | + +---------+ + + + | WHITE CELL | 4.3 (L) | K/cu mm | [facility] | | | COUNT | | | LAB - | | | | | | [place] | | + +---------+ + + + | HEMOGLOBIN | 13.5 | g/dL | [facility] | | | | | | LAB - | | | | | | [place] | | + +---------+ + + + | HEMATOCRIT | 41.6 | % | [facility] | | | | | | LAB - | | | | | | [place] | | + +---------+ + + + | PLATELET | [address] | [place] | [phone] | | [place] | | | | + + + + + documented in this encounter Visit Diagnoses Not on filedocumented in this encounter"
--- OUTSIDE RECORDS SUMMARY | ~2019-02-11 | XMS | Encounter Summary ---
Demographics + + + | Address | [address] | | | [place] [address] | + + + | Home Phone | | + + + | Preferred Language | Unknown | + + + | Marital Status | | + + + | Gnosticist Affiliation | CAT | + + + [...] + | Roxana Bo | ECON | [address] | | | | | [place] | | | | | [address] | | + + + + + Care Team Providers + +------+ + | Care Automotive Refinish Technician Name | Role | Phone | [...] | | | Procedures | FAMILY | [place], [place] | | | | | CONSULT TO | MEDICINE | [address] | | | | | HEPATOLOGY | [address] | Phone: | | | | | liver bx | [address] | [phone] | | | | | | [place], | Fax: | | | | | | [place] [address] | [phone] | | | | | | Phone: | | | | | | | [phone] | | | | | | | Fax: | | | | | | | [phone] | | +--------+ + + + + + Encounter Details +--------+---------+ + + + | Date | Type | Department | Care Team | Description | +--------+---------+ + + + | 02/12/ | Office | Digestive Health | Lake Ontiveros MD | Autoimmune hepatitis | | 2009 | Visit | Center at [facility] [address] | [address] | (HCC); Primary | | | | [address] | [place], [place] | biliary cirrhosis | | | | Mailcode: OC8D | [phone] | (HCC) | | | | [facility] | [phone] | | | | | and Healing, | | | | | | [address] | | | | | | [place], [place] | | | | | | [address] | | | | | | [phone] | | | +--------+---------+ + + + [...] + + + | Blood Pressure | 166/84 | 06/15/2009 3:24 PM | | | | | PST | | + + + + + | Pulse | 85 | 06/15/2009 3:24 PM | | | | | PST | | + + + + + | Temperature | 36.3 C (97.4 F) | 06/15/2009 3:24 PM | | | [...] + + + + | Weight | 82.6 kg (182 lb 1.6 | 06/15/2009 3:24 PM | | | | oz) | PST | | + + + + + | Height | 160 cm (5' 3") | 06/15/2009 3:24 PM | | | | | PST | | + + + + + | Body Mass Index | 32.26 | 06/15/2009 3:24 PM | | | | | PST | | + + + + + documented in this encounter Progress Notes Lake Ontiveros MD - 06/15/2009 4:08 PM PSTFormatting of this note might be different from [...] no Good social support: yes Objective: BP 166/84 | Pulse 85 | Temp(Src) 36.3 C (97.4 F) (Oral) | Ht 1.6 m (5' 3") | Wt 82.6 kg (182 lb 1.6 oz) General: Alert, NAD. HEENT: Normal, sclerae [...] rashes, lesions or spider hemangomota. Laboratory Data: SODIUM (LAB) (mmol/L) Date Value 05/22/09 139 04/19/09 139 03/22/09 142 SODIUM-[facility] (mmol/L) Date Value 02/14/09 144* CREATININE,PLASMA (mg/dL) Date Value 05/22/09 0.83 04/19/09 0.83 03/22/09 0.87 CREATININE-[facility] (mg/dL) Date Value 02/14/09 0.7 AST(SGOT) (U/L) Date Value 05/22/09 27 04/19/09 31 03/22/09 35 AST-[facility] (U/L) Date Value 02/14/09 69* ALT (SGPT) (U/L) Date Value 05/22/09 15 04/19/09 14 03/22/09 19 ALT-[facility] (U/L) Date Value 02/14/09 46 BILIRUBIN TOTAL (Transcutaneous Bilirubinometer) Date Value 05/22/09 0.8 04/19/09 1 03/22/09 1 BILIRUBIN, TOTAL-[facility] (mg/dL) Date Value 02/14/09 0.6 ALBUMIN (LAB) (g/dL) Date Value 04/19/09 3.4* 03/22/09 3.5 ALBUMIN-[facility] (g/dL) Date Value 02/14/09 3.4 WHITE CELL COUNT (K/cu mm) Date Value 05/22/09 5.6 04/19/09 6.1 02/20/09 Not Recd WHITE CELL COUNT - [facility] (K/cu mm) Date Value 02/14/09 5.4 HEMOGLOBIN (g/dL) Date Value 05/22/09 14.7 04/19/09 14.2 02/20/09 Not Recd HEMOGLOBIN, BLOOD - [facility] (g/dL) Date Value 02/14/09 14.0 MCV (fL) Date Value 02/20/09 Not Recd MCV - [facility] (fL) Date Value 02/14/09 89.7 PLATELET COUNT (K/cu mm) Date Value 05/22/09 359 04/19/09 403 02/20/09 Not Recd PLATELET COUNT, BLOOD - [facility] (K/cu mm) Date Value 02/14/09 366 Assessment/Plan: Tolerating meds quite well. Liver tests cont to improve. Plan 1) cont current meds 2) q3 months CMP, CBC, plts, diff, INR 3) RTC in 6 months Counseling Time: [...] [address] | | | | | | [place], [place] | | | | | | [address] | | | | | | [phone] | | | | | | | | +--------+---------+ + + + documented as of this encounter Procedures + +--------+ + + + | Procedure Name | Priori | Date/Time | Associated Diagnosis | Comments | | | ty | | | | + +--------+ + + + | INR | Routin | 07/02/2010 | Autoimmune | Results for this | | | e | 11:05 AM | hepatitis (HCC) | procedure are in the | | | | PST | Primary biliary | results section. | | | | | cirrhosis (HCC) | | + +--------+ + + + | CBC, WITH | Routin | 07/02/2010 | Autoimmune | Results for this | | DIFFERENTIAL | e | 11:05 AM | hepatitis (HCC) | procedure are in the | | | | PST | Primary biliary | results section. | | | | | cirrhosis (HCC) | | + +--------+ + + + | COMPLETE METABOLIC | Routin | 07/02/2010 | Autoimmune | Results for this | | SET | e | 11:05 AM | hepatitis (HCC) | procedure are in the | | (NA,K,CL,CO2,BUN,CRE | | PST | Primary biliary | results section. | | AT,GLUC,CA,AST,ALT,B | | | cirrhosis (HCC) | | | JONH TOTAL,ALK | | | | | | PHOS,ALB,PROT TOTAL) | | | | | + +--------+ + + + | LAB REPORTS | | 07/02/2009 | | Results for this | | | | 12:00 AM | | procedure are in the | | | | PST | | results section. | + +--------+ + + + documented in this encounter Results INR (07/02/2010 11:05 AM PST) + +---------+ + + + | Component | Value | Ref Range | Performed | Pathologist | | | | | At | Signature | + +---------+ + + + | INR | 0.9 (A) | 0.98 - 1.08 INR | [facility] | | | | [...] [address] | [place] [address] | | | [place] | [address] | | | + + + + + CBC, WITH DIFFERENTIAL (07/02/2010 11:05 AM PST) + +-------+ + + + | Component | Value | Ref Range | Performed | Pathologist | | | | | At | Signature | + +-------+ + + + | WHITE CELL | 5.7 | K/cu mm | [facility] | | [...] +-------+ + + + | HEMOGLOBIN | 14.6 | 12 - 15 | [facility] | | | | | g/dL | LAB - | | | | | | [place] | | + +-------+ + + + | HEMATOCRIT | 44.2 | % | [facility] | | | | | | LAB - | | | | | | [place] | | + +-------+ + + + | PLATELET | 313 | K/cu mm | [facility] | | [...] | [address] | [place] [address] | | | [place] | [address] | | | + + + + + COMPLETE METABOLIC SET (NA,K,CL,CO2,BUN,CREAT,GLUC,CA,AST,ALT,BILI TOTAL,ALK PHOS,ALB,PROT TOTAL) (07/02/2010 11:05 AM PST) + +---------+ + + + | Component | Value | Ref Range | Performed | Pathologist | | | | | At | Signature | + +---------+ + + + | GLUCOSE, | 86 | 65 - 110 mg/dL | [facility] [...] +---------+ + + + | CREATININE | 0.81 | mg/dL | [facility] | | | [...] + + + | ALK PHOS | 81 | U/L | [facility] | | | [...] | [facility] - | [address] | [place], [place] [address] | | | [place] | [address] | | | + + + + + LAB REPORTS (07/02/2009 12:00 AM PST) + + + | Narrative | Performed At | + + + | | | + + + + + | Procedure Note | + + | Rg Richards - 07/02/2009 12:00 AM PST | | | + + documented in this encounter Visit Diagnoses + + | Diagnosis | + + | Autoimmune hepatitis (HCC) Autoimmune hepatitis | + + | Primary biliary cirrhosis (HCC) Biliary cirrhosis | + + documented in this encounter
--- OUTSIDE RECORDS SUMMARY | ~2019-02-11 | XMS | Encounter Summary ---
Demographics + + + | Address | [address] | | | [place] [address] | + + + | Home Phone | | + + + | Preferred Language | Unknown | + + + | Marital Status | | + + + | Latter Day Affiliation | CAT | + + + [...] + | Roxana Bo | ECON | [address] | | | | | [place] | | | | | [phone] | | + + + + + Care Team Providers + +------+ + | Care Assistant Head Cashier Name | Role | Phone | + +------+ + | No Pcp Per Patient | PCP | Unavailable | + +------+ + Encounter Details +--------+ + + + + | Date | Type | Department | Care Team | Description | +--------+ + + + + | 05/15/ | MyChart | [facility] | [place] MD | RE: Scheduled Blood | | 2015 | Encounter | [place] [facility] [address] | [address] | Work/test results | | | | [address] | [place], [place] | | | | | Mailcode: [id number] | [address] | | | | | [facility] | [phone] | | | | | [facility], | | | | | | [address] | | | | | | [place], [place] | | | | | | [address] | | | | | | [phone] | | | +--------+ + + + [...] [place] | | | | | | [address] | | | | | | [phone] | | | | | | | | +--------+---------+ + + + documented as of this encounter Visit Diagnoses Not on filedocumented in this encounter"
--- OUTSIDE RECORDS SUMMARY | ~2019-02-11 | XMS | Encounter Summary ---
Demographics + + + | Address | [address] | | | [place] [address] | + + + | Home Phone [...] Author + + + | Author | [facility] | + + + | Organization | [facility] | + + + | Address | Unknown | + + + | Phone | Unavailable | + + + Support + + + + + | Name | Relationship | Address | Phone | + + + + + | Roxana Bo | ECON | [address] | | | | | [place] | | | | | [address] | | + + + + + Care Team Providers + +------+ + | Care Derrick Helper Name | Role | Phone | [...] Results | | 2014 | Encounter | [place] at [facility] [address] | [address] | | | | | [address] | [place], [place] | | | | | Mailcode: OC8D | [address] | | | | | [facility] | [phone] | | | | | and Healing, | | | | | | [address] | | | | | | [place], [place] | | | | | | [address] | | | | | | [phone] | | | +--------+ + + + [...] [place] | | | | | | [address] | | | | | | [phone] | | | | | | | | +--------+---------+ + + + documented as of this encounter Visit Diagnoses Not on filedocumented in this encounter"
--- OUTSIDE RECORDS SUMMARY | ~2019-02-11 | XMS | Encounter Summary ---
Demographics + + + | Address | [address] | | | [place] [address] | + + + | Home Phone | | + + + | Preferred Language | Unknown | + + + | Marital Status | | + + + | Druze Affiliation | CAT | + + + | Race | White | + + + | Ethnic Group | Not or | + + + Author + + + | Author | [facility] | + + + | Organization | [facility] | + + + | Address | Unknown | + + + | Phone | Unavailable | + + + Support + + + + + | Name | Relationship | Address | Phone | + + + + + | Roxana Bo | ECON | [address] | | | | | [place] | | | | | [address] | | + + + + + Care Team Providers + +------+ + | Care Stock Selector Name | Role | Phone | + +------+ + | Ventura Carrasquillo MD | PCP | | + +------+ + Encounter Details +--------+ + + + + | Date | Type | Department | Care Team | Description | +--------+ + + + + | 07/13/ | MyChart | Digestive Health | Lake Dennis MD | RE: Medication | | 2014 | Encounter | [place] at [facility] [address] | [address] | | | | | [address] | [place], [place] | | | | | Mailcode: OC8D | [address] | | | | | [facility] | [phone] | | | | | and Healing, | | | | | | [address] | | | | | | [place], [place] | | | | | | [address] | | | | | | [phone] | | | +--------+ + + + [...] [place] | | | | | | [address] | | | | | | [phone] | | | | | | | | +--------+---------+ + + + documented as of this encounter Visit Diagnoses Not on filedocumented in this encounter"
--- OUTSIDE RECORDS SUMMARY | ~2019-02-11 | XMS | Encounter Summary ---
Demographics + + + | Address | [address] | | | [place] [address] | + + + | Home Phone [...] + | Roxana Bo | ECON | [address] | | | | | [place] | | | | | [address] | | + + + + + Care Team Providers + +------+ + | Care Heavy Rail Train Operator Name | Role | Phone | + +------+ + | Ventura Carrasquillo MD | PCP | | + +------+ + Encounter Details +--------+ + + + + | Date | Type | Department | Care Team | Description | +--------+ + + + + | 04/07/ | Abstract | Digestive Health | Lake Dennis MD | | | 2010 | | [place] [address] [address] | [address] | | | | | [address] | [place], [place] | | | | | Mailcode: OC8D | [address] | | | | | [facility] | [phone] | | | | | and Healing, | | | | | | [address] | | | | | | [place], [place] | | | | | | [address] | | | | | | [phone] | | | +--------+ + + + [...] [place] | | | | | | [place] | | | | | | [address] | | | | | | [phone] | | | | | | | | +--------+---------+ + + + documented as of this encounter Visit Diagnoses Not on filedocumented in this encounter"
--- OUTSIDE RECORDS SUMMARY | ~2019-02-11 | XMS | Encounter Summary ---
Demographics + + + | Address | [address] | | | [place] [address] | + + + | Home Phone [...] + | Roxana Bo | ECON | [address] | | | | | [place] | | | | | [address] | | + + + + + Care Team Providers + +------+ + | Care Electoral Officer Name | Role | Phone | + +------+ + | Ventura Carrasquillo MD | PCP | | + +------+ + Encounter Details +--------+ + + + + | Date | Type | Department | Care Team | Description | +--------+ + + + + | 01/03/ | Abstract | Digestive Health | Lake Dennis MD | | | 2010 | | [place] [address] [address] | [address] | | | | | [address] | [place], [place] | | | | | Mailcode: OC8D | [address] | | | | | [facility] | [phone] | | | | | and Healing, | | | | | | [address] | | | | | | [place], [place] | | | | | | [address] | | | | | | [phone] | | | +--------+ + + + [...] [place] | | | | | | [place] | | | | | | [address] | | | | | | [phone] | | | | | | | | +--------+---------+ + + + documented as of this encounter Visit Diagnoses Not on filedocumented in this encounter"
--- OUTSIDE RECORDS SUMMARY | ~2019-02-11 | XMS | Encounter Summary ---
Demographics + + + | Address | [address] | | | [place] [address] | + + + | Home Phone | | + + + | Preferred Language | Unknown | + + + | Marital Status | | + + + | Worship Affiliation | CAT | + + + | Race | White | + + + | Ethnic Group | Not or | + + + Author + + + | Author | [facility] | + + + | Organization | [facility] | + + + | Address | Unknown | + + + | Phone | Unavailable | + + + Support + + + + + | Name | Relationship | Address | Phone | + + + + + | Roxana Bo | ECON | [address] | | | | | [place] | | | | | [address] | | + + + + + Care Team Providers + +------+ + | Care Peripheral Vascular Tech Name | Role | Phone | + +------+ + | Ventura Carrasquillo MD | PCP | | + +------+ + Encounter Details +--------+ + + + + | Date | Type | Department | Care Team | Description | +--------+ + + + + | 08/19/ | Telephone | Digestive Health | Lake Dennis MD | | | 2010 | | [place] [address] [address] | [address] | | | | | [address] [place] | [place], [place] | | | | | Mailcode: OC8D | [address] | | | | | [place] for [facility] | [phone] | | | | | and Healing, | | | | | | [address] | | | | | | [place], [place] | | | | | | [address] | | | | | | [phone] | | | +--------+ + + + [...] [place] | | | | | | [place], [place] | | | | | | [address] | | | | | | [phone] | | | | | | | | +--------+---------+ + + + documented as of this encounter Visit Diagnoses Not on filedocumented in this encounter"
--- OUTSIDE RECORDS SUMMARY | ~2019-02-11 | XMS | Encounter Summary ---
Demographics + + + | Address | [address] | | | [place] [address] | + + + | Home Phone [...] + | Roxana Bo | ECON | [address] | | | | | [place] | | | | | [address] | | + + + + + Care Team Providers + +------+ + | Care Log Stacker Operator Name | Role | Phone | + +------+ + | Ventura Carrasquillo MD | PCP | | + +------+ + Encounter Details +--------+ + + + + | Date | Type | Department | Care Team | Description | +--------+ + + + + | 10/07/ | Telephone | Digestive Health | Lake Dennis MD | | | 2011 | | [place] [address] [address] | [address] | | | | | [address] [place] | [place], [place] | | | | | Mailcode: OC8D | [address] | | | | | [place] for [facility] | [phone] | | | | | and Healing, | | | | | | [address] | | | | | | [place], [place] | | | | | | [address] | | | | | | [phone] | | | +--------+ + + + [...] [place] | | | | | | [place], [place] | | | | | | [address] | | | | | | [phone] | | | | | | | | +--------+---------+ + + + documented as of this encounter Visit Diagnoses Not on filedocumented in this encounter"
--- OUTSIDE RECORDS SUMMARY | ~2019-02-11 | XMS | Encounter Summary ---
Demographics + + + | Address | [address] | | | [place] [address] | + + + | Home Phone [...] + | Roxana Bo | ECON | [address] | | | | | [place] | | | | | [address] | | + + + + + Care Team Providers + +------+ + | Care Financial Services Auditor Name | Role | Phone | [...] | 2009 | on | Center at [facility] [address] | [address] | (04/03/10 [facility] | | | | [address] | [place], [place] | Lab) | | | | Mailcode: OC | [address] | | | | | [facility] | [phone] | | | | | and [place], | | | | | | [address] | | | | | | [place], [place] | | | | | | [address] | | | | | | [phone] | | | +--------+ + + + [...] [place] | | | | | | [place], [place] | | | | | | [address] | | | | | | [phone] | | | | | | | | +--------+---------+ + + + documented as of this encounter Visit Diagnoses Not on filedocumented in this encounter"
--- OUTSIDE RECORDS SUMMARY | ~2019-02-11 | XMS | Encounter Summary ---
Demographics + + + | Address | [address] | | | [place] [address] | + + + | Home Phone | | + + + | Preferred Language | Unknown | + + + | Marital Status | | + + + | Religion Affiliation | CAT | + + + | Race | White | + + + | Ethnic Group | Not or | + + + Author + + + | Author | [facility] | + + + | Organization | [facility] | + + + | Address | Unknown | + + + | Phone | Unavailable | + + + Support + + + + + | Name | Relationship | Address | Phone | + + + + + | Roxana Bo | ECON | [address] | | | | | [place] | | | | | [address] | | + + + + + Care Team Providers + +------+ + | Care Integration Engineer Name | Role | Phone | [...] Results | | 2015 | Encounter | [place] [address] [address] | [address] | | | | | [address] | [place], [place] | | | | | Mailcode: OC8D | [address] | | | | | [facility] | [phone] | | | | | and [place], | | | | | | [address] | | | | | | [place], [place] | | | | | | [address] | | | | | | [phone] | | | +--------+ + + + [...] [place] | | | | | | [place], [place] | | | | | | [address] | | | | | | [phone] | | | | | | | [...] [address] | [place], [place] | [phone] | | [place] | | | | [...] [address] | [place], [place] | [phone] | | [place] | | | | + + + + + documented in this encounter Visit Diagnoses Not on filedocumented in this encounter"
--- OUTSIDE RECORDS SUMMARY | ~2019-02-11 | XMS | Encounter Summary ---
Demographics + + + | Address | [address] | | | [place] [address] | + + + | Home Phone [...] + | Roxana Bo | ECON | [address] | | | | | [place] | | | | | [address] | | + + + + + Care Team Providers + +------+ + | Care Tube Bender Hand Name | Role | Phone | [...] Test Results | | 2018 | | [place] [address] [address] | [address] | | | | | [address] | [place], [place] | | | | | Mailcode: OC8D | [address] | | | | | [facility] | [phone] | | | | | and Healing, | | | | | | [address] | | | | | | [place], [place] | | | | | | [address] | | | | | | [phone] | | | +--------+ + + + [...] [place] | | | | | | [place], [place] | | | | | | [address] | | | | | | [phone] | | | | | | | | +--------+---------+ + + + documented as of this encounter Visit Diagnoses Not on filedocumented in this encounter"
--- OUTSIDE RECORDS SUMMARY | ~2019-02-11 | XMS | Encounter Summary ---
Demographics + + + | Address | [address] | | | [place] [address] | + + + | Home Phone | | + + + | Preferred Language | Unknown | + + + | Marital Status | | + + + | Denominational Affiliation | CAT | + + + [...] + | Roxana Bo | ECON | [address] | | | | | [place] | | | | | [address] | | + + + + + Care Team Providers + +------+ + | Care Gallery Manager Name | Role | Phone | [...] | 2014 | Encounter | Center at [facility] [address] | [address] | info | | | | [address] | [place], [place] | | | | | Mailcode: OC8D | [address] | | | | | [place] [facility] | [phone] | | | | | and Healing, | | | | | | [address] | | | | | | [place], [place] | | | | | | [address] | | | | | | [phone] | | | +--------+ + + + [...] [place] | | | | | | [place] | | | | | | [address] | | | | | | [phone] | | | | | | | | +--------+---------+ + + + documented as of this encounter Visit Diagnoses Not on filedocumented in this encounter"
--- OUTSIDE RECORDS SUMMARY | ~2019-02-11 | XMS | Encounter Summary ---
Demographics + + + | Address | [address] | | | [place] [address] | + + + | Home Phone [...] + | Roxana Bo | ECON | [address] | | | | | [place] | | | | | [address] | | + + + + + Care Team Providers + +------+ + | Care Dry Cleaner Name | Role | Phone | + [...] | 2013 | Visit | Center at [facility] [address] | [address] | (HCC) (Primary Dx); | | | | [address] | [facility] [place] | Primary biliary | | | | Mailcode: OC8D | [address] | cirrhosis (HCC) | | | | [facility] | [phone] | | | | | and Healing, | | | | | | [address] | | | | | | [place], [place] | | | | | | [address] | | | | | | [phone] | | | +--------+---------+ + + + [...] encounter Progress Notes Lake Ontiveros MD - 01/30/2014 1:04 PM PDTFormatting of [...] 4 caps by mouth prior to procedure. jaksudmelexz-mzeaqje-dtvwwae-folic acid chewable 200-0.4 mg Oral Tablet, Chewable Take 2 Tabs by mouth once daily. mztctbibosyd-epfvssy-dhai-lutein (CENTRUM SILVER ULTRA WOMEN'S) Oral Tablet Take 1 Tab by mouth once daily. Shannon-3 Fatty Acids-Vitamin E (FISH OIL) 1,000 mg [...] 2) reduce ursodiol to 600mg DAILY 3) a3nlhvqe liver set, CBC, plts, diff, INR 4) [...] [place] | | | | | | [place], [place] | | | | | | [address] | | | | | | [phone] | | | | | | | | +--------+---------+ + + + documented as of this encounter Visit Diagnoses + + | Diagnosis | + + | Autoimmune hepatitis (HCC) - Primary Autoimmune hepatitis | + + | Primary biliary cirrhosis (HCC) Biliary cirrhosis | + + documented in this encounter
--- OUTSIDE RECORDS SUMMARY | ~2019-02-11 | XMS | Encounter Summary ---
Demographics + + + | Address | [address] | | | [place] [address] | + + + | Home Phone | | + + + | Preferred Language | Unknown | + + + | Marital Status | | + + + | Spiritism Affiliation | CAT | + + + [...] + | Roxana Bo | ECON | [address] | | | | | [place] | | | | | [address] | | + + + + + Care Team Providers + +------+ + | Care Coat Presser Name | Role | Phone | + +------+ + | Ventura Carrasquillo MD | PCP | | + +------+ + Encounter Details +--------+------+ + + + | Date | Type | Department | Care Team | Description | +--------+------+ + + + | 02/14/ | Lab | Laboratory at [facility] | | Nonspecific Abnormal | | 2008 | | [address] [place] | | Results of Liver | | | | [place], [place] | | Function Study | | | | [address] | | | | | | [phone] | | | +--------+------+ + + + [...] [place] | | | | | | [place], [place] | | | | | | [address] | | | | | | [phone] | | | | | | | [...] | + +--------+ + + + | [id number]-[id number],SER | Routin | 02/14/2009 | | Results [...] ([address] Lab) | [facility] | | [facility] | DEPARTMENT OF | | [address] [facility] | PATHOLOGY | | [place] [address] | | + + + + + + + + | Performing | Address | City/State/Zipcode | Phone Number | | Organization | | | | + + + + + | [facility] | [address] | [place] [address] | | | PATHOLOGY | [address] [...] | DEPARTMENT OF | | Way Lab) [facility] | PATHOLOGY | | [address] [facility] | | | [place] [address] RLB | | | ([address] Lab) [facility] | | | [address] [facility] | | | [place] [address] | | + + + + + + + + | Performing | Address | City/State/Zipcode | Phone Number | | Organization | | | | + + + + + | [facility] | [address] | [place] [address] | | | PATHOLOGY | [address] | | | + + + + + [id number],SERUM (02/14/2009 1:37 PM PDT) + +-------+ + [...] | Range Change effective 05/30/08 [facility] ([address] [facility] | DEPARTMENT OF | | Lab) [facility] [place] [address] | PATHOLOGY | | [place] [address] | | | Reference Range Change effective 05/30/08 | | | R[facility] ([facility]) [place] | | | [facility] [address] [facility] | | | [place] [address] | | + + + + + + + + | Performing | Address | City/State/Zipcode | Phone Number | | Organization | | | | + + + + + | [facility] | [address] | [place] [address] | | | PATHOLOGY | [address] [...] | Range Change effective 05/30/08 [facility] ([address] [facility] | DEPARTMENT OF | | Lab) [facility] [place] [address] | PATHOLOGY | | [place] [address] | | + + + + + + + + | Performing | Address | City/State/Zipcode | Phone Number | | Organization | | | | + + + + + | [facility] DEPARTMENT OF | [address] | [place] [address] | | | PATHOLOGY | [address] [...] | DEPARTMENT OF | | Way Lab) [facility] | PATHOLOGY | | [address] | | | [place] [address] RLB | | | ([address] Lab) [facility] | | | [address] | | | [place] [address] | | + + + + + + + + | Performing | Address | City/State/Zipcode | Phone Number | | Organization | | | | + + + + + | [facility] DEPARTMENT OF | [address] | [place] [address] | | | PATHOLOGY | [address] [...] At | + + + | RLB ([address] [facility]) [place] | [place] | | [facility] [place] [place] [address] [facility] | DEPARTMENT OF | | [place] [address] | PATHOLOGY | + + + + + + + + | Performing | Address | City/State/Zipcode | Phone Number | | Organization | | | | + + + + + | [facility] DEPARTMENT OF | [address] | [place] [address] | | | PATHOLOGY | [address] [...] | + + + + + | [facility] DEPARTMENT OF | [address] [facility] | [place] [address] | | | PATHOLOGY | [address] | | | + + + + + | [facility] | [address] [facility] | [place] [address] | | | PATHOLOGY | [address] [...] | + + + + + | [facility] DEPARTMENT OF | [address] [facility] | [place] [address] | | | PATHOLOGY | [address] | | | + + + + + | [facility] DEPARTMENT OF | [address] [facility] | [place] [address] | | | PATHOLOGY | [address] [...] | + + + + + | [facility] | [address] [facility] | [place] [address] | | | PATHOLOGY | [address] | | | + + + + + | [facility] | [facility] | [place] [address] | | | PATHOLOGY | [address] | | | + + + + + documented in this encounter Visit Diagnoses + + | Diagnosis | + + | Nonspecific abnormal results of liver function study | + + documented in this encounter"
--- OUTSIDE RECORDS SUMMARY | ~2019-02-11 | XMS | Encounter Summary ---
Demographics + + + | Address | [address] | | | [place] [address] | + + + | Home Phone [...] + | Roxana Bo | ECON | [address] | | | | | [place] | | | | | [address] | | + + + + + Care Team Providers + +------+ + | Care Steward Dishwasher Name | Role | Phone | + +------+ + | Ventura Carrasquillo MD | PCP | | + +------+ + Encounter Details +--------+ + + + + | Date | Type | Department | Care Team | Description | +--------+ + + + + | 10/12/ | Abstract | Digestive Health | Lake Dennis MD | | | 2011 | | [place] [address] [address] | [address] | | | | | [address] [place] | [place], [place] | | | | | Mailcode: OC8D | [address] | | | | | [facility] | [phone] | | | | | and Healing, | | | | | | [address] | | | | | | [place], [place] | | | | | | [address] | | | | | | [phone] | | | +--------+ + + + [...] [place] | | | | | | [place] | | | | | | [address] | | | | | | [phone] | | | | | | | | +--------+---------+ + + + documented as of this encounter Visit Diagnoses Not on filedocumented in this encounter"
--- OUTSIDE RECORDS SUMMARY | ~2019-02-11 | XMS | Encounter Summary ---
Demographics + + + | Address | [address] | | | [place] [address] | + + + | Home Phone [...] + | Roxana Bo | ECON | [address] | | | | | [place] | | | | | [address] | | + + + + + Care Team Providers + +------+ + | Care Public Housing Manager Name | Role | Phone | [...] | 2018 | on | Center at [facility] [address] | [address] | | | | | [address] | [place], [place] | | | | | Mailcode: OCD | [address] | | | | | [facility] | [phone] | | | | | and Healing, | | | | | | [address] | | | | | | [place], [place] | | | | | | [address] | | | | | | [phone] | | | +--------+ + + + [...] [place] | | | | | | [place], [place] | | | | | | [address] | | | | | | [phone] | | | | | | | [...] [address] | [place] | [phone] | | [place] | | | | [...] [address] | [place] | [phone] | | [place] | | | | + + + + + documented in this encounter Visit Diagnoses Not on filedocumented in this encounter"
--- OUTSIDE RECORDS SUMMARY | ~2019-02-11 | XMS | Encounter Summary ---
Demographics + + + | Address | [address] | | | [place] [address] | + + + | Home Phone | | + + + | Preferred Language | Unknown | + + + | Marital Status | | + + + | Gnosticist Affiliation | CAT | + + + | Race | White | + + + | Ethnic Group | Not or | + + + Author + + + | Author | [facility] | + + + | Organization | [facility] | + + + | Address | Unknown | + + + | Phone | Unavailable | + + + Support + + + + + | Name | Relationship | Address | Phone | + + + + + | Roxana Bo | ECON | [address] | | | | | [place] | | | | | [address] | | + + + + + Care Team Providers + +------+ + | Care Machine Operator Cane Cutter Name | Role | Phone | [...] | +--------+ + + + + | 12/31/ | Telephone | Digestive Health | Lake Dennis MD | Lab findings, | | 2011 | | Center at [facility] [address] | [address] | teaching, guidance, | | | | [address] | [place], [place] | and counseling | | | | Mailcode: OC8D | [address] | | | | | [facility] | [phone] | | | | | and Healing, | | | | | | [address] | | | | | | [place], [place] | | | | | | [address] | | | | | | [phone] | | | +--------+ + + + [...] [place] | | | | | | [place], [place] | | | | | | [address] | | | | | | [phone] | | | | | | | | +--------+---------+ + + + documented as of this encounter Visit Diagnoses + + | Diagnosis | + + | Autoimmune hepatitis (HCC) Autoimmune hepatitis | + + | Primary biliary cirrhosis (HCC) Biliary cirrhosis | + + documented in this encounter"
--- OUTSIDE RECORDS SUMMARY | ~2019-02-11 | XMS | Encounter Summary ---
Demographics + + + | Address | [address] | | | [place] [address] | + + + | Home Phone [...] + + + + + | Roxana oB | ECON | [address] | | | | | [place] | | | | | [address] | | + + + + + Care Team Providers + +------+ + | Care Forging Engineer Name | Role | Phone | [...] | Center at [facility] [address] | [address] [place] | | | | | [address] [place] | [facility] [place] | | | | | Mailcode: OC8D | [address] | | | | | [place] for [facility] | [phone] | | | | | and Healing, | | | | | | [address] | | | | | | [place], [place] | | | | | | [address] | | | | | | [phone] | | | +--------+ + + + [...] [place] | | | | | | [place] | | | | | | [address] | | | | | | [phone] | | | | | | | | +--------+---------+ + + + documented as of this encounter Visit Diagnoses Not on filedocumented in this encounter"
--- OUTSIDE RECORDS SUMMARY | ~2019-02-11 | XMS | Encounter Summary ---
Demographics + + + | Address | [address] | | | [place] [address] | + + + | Home Phone [...] + | Roxana Bo | ECON | [address] | | | | | [place] | | | | | [address] | | + + + + + Care Team Providers + +------+ + | Care Laboratory Inspector Name | Role | Phone | [...] | | Hepatology | | No | Sonny | | | | | | Referring | MD Lake | | | | | | Provider Per | [address] | | | | | | Patient NO | Ave | | | | | | REFERRING | [place], [place] | | | | | | PROVIDER PER | [address] | | | | | | PT | Phone: | | | | | | | [phone] | | | | | | | Fax: | | | | | | | [phone] | +--------+--------+ + + + + Encounter Details +--------+---------+ + + + | Date | Type | Department | Care Team | Description | +--------+---------+ + + + | 02/10/ | Office | Digestive Health | Lake Dennis MD | Autoimmune hepatitis | | 2016 | Visit | Center at [facility] [address] | [address] | (HCC) (Primary Dx); | | | | [address] | [facility] [place] | Primary biliary | | | | Mailcode: OC8D | [address] | cirrhosis (HCC) | | | | [facility] | [phone] | | | | | and [place], | | | | | | [address] | | | | | | [place], [place] | | | | | | [address] | | | | | | [phone] | | | +--------+---------+ + + + [...] 1,000 Units by mo ut once daily. wrhxcrcgiawd-mdflgvq-brnnplh-folic acid chewable 200-0.4 mg Oral Tablet, Chewable Take 2 Tabs by mouth once daily. vtdrdwhqhcct-ylgnmbi-tboo-lutein (CENTRUM SILVER ULTRA WOMEN'S) Oral Tablet Take 1 Tab by mouth once daily. [place]-3 Fatty Acids-Vitamin E (FISH OIL) 1,000 mg [...] disease. Plan 1) cont current meds 2) c5ddluay liver set, CBC 3) RTC in 1 [...] [place] | | | | | | [address] | | | | | | [phone] | | | | | | | | +--------+---------+ + + + documented as of this encounter Visit Diagnoses + + | Diagnosis | + + | Autoimmune hepatitis (HCC) - Primary Autoimmune hepatitis | + + | Primary biliary cirrhosis (HCC) Biliary cirrhosis | + + documented in this encounter
--- OUTSIDE RECORDS SUMMARY | ~2019-02-11 | XMS | Encounter Summary ---
Demographics + + + | Address | [address] | | | [place] [address] | + + + | Home Phone | | + + + | Preferred Language | Unknown | + + + | Marital Status | | + + + | Holiness Affiliation | CAT | + + + [...] + | Roxana Bo | ECON | [address] | | | | | [place] | | | | | [address] | | + + + + + Care Team Providers + +------+ + | Care Direct Support Specialist Name | Role | Phone | [...] | 2010 | on | Center at [facility] [address] | [address] | (04/03/2011) | | | | [address] | [place], [place] | | | | | Mailcode: OC8Luba | [address] | | | | | [facility] | [phone] | | | | | and Healing, | | | | | | [address] | | | | | | [place], [place] | | | | | | [address] | | | | | | [phone] | | | +--------+ + + + [...] [address] | | | | | | [place], [place] | | | | | | [address] | | | | | | [phone] | | | | | | | [...] [address] | [place] [address] | | | [place] | [address] | [address] | [place] [address] | | | [place] | 120 | [...] [address] | [place] [address] | | | [place] | 120 | | | + + + + + documented in this encounter Visit Diagnoses Not on filedocumented in this encounter"
--- OUTSIDE RECORDS SUMMARY | ~2019-02-11 | XMS | Encounter Summary ---
Demographics + + + | Address | [address] | | | [place] [address] | + + + | Home Phone [...] + | Roxana Bo | ECON | [address] | | | | | [place] | | | | | [address] | | + + + + + Care Team Providers + +------+ + | Care Intermediate Frame Tender Name | Role | Phone | + +------+ + | Ventura Carrasquillo MD | PCP | | + +------+ + Encounter Details +--------+ + + + + | Date | Type | Department | Care Team | Description | +--------+ + + + + | 10/01/ | Document-Sc | UNKNOWN DEPARTMENT | Unknown . | | | 2012 | anned | [address] | | | | | | [address] | | | | | | [place], [place] | | | | | | [address] | | | +--------+ + + + [...] | | 2020 | Visit | | [address] | | | | | | [place], [place] | | | | | | [address] | | | | | | [phone] | | | | | | | [...]
--- OUTSIDE RECORDS SUMMARY | ~2019-02-11 | XMS | Encounter Summary ---
Demographics + + + | Address | [address] | | | [place] [address] | + + + | Home Phone [...] + | Roxana Bo | ECON | [address] | | | | | [place] | | | | | [address] | | + + + + + Care Team Providers + +------+ + | Care Spanish Linguist Name | Role | Phone | + +------+ + | Ventura Carrasquillo MD | PCP | | + +------+ + Encounter Details +--------+ + + + + | Date | Type | Department | Care Team | Description | +--------+ + + + + | 10/04/ | Document-Sc | UNKNOWN DEPARTMENT | Unknown . | | | 2013 | anned | [address] | | | | | | [address] | | | | | | [place], [place] | | | | | | [address] | | | +--------+ + + + [...] | | 2020 | Visit | | [address] | | | | | | [place], [place] | | | | | | [address] | | | | | | [phone] | | | | | | | [...]
--- OUTSIDE RECORDS SUMMARY | ~2019-02-11 | XMS | Encounter Summary ---
Demographics + + + | Address | [address] | | | [place] [address] | + + + | Home Phone [...] + | Roxana Bo | ECON | [address] | | | | | [place] | | | | | [address] | | + + + + + Care Team Providers + +------+ + | Care Executive Director Global Brand Marketing Name | Role | Phone | + +------+ + | No Pcp Per Patient | PCP | Unavailable | + +------+ + Encounter Details +--------+ + + + + | Date | Type | Department | Care Team | Description | +--------+ + + + + | 01/02/ | Document-Sc | UNKNOWN DEPARTMENT | Unknown . | | | 2015 | anned | [address] | | | | | | [address] | | | | | | [place], [place] | | | | | | [address] | | | +--------+ + + + [...] [place] | | | | | | [address] | | | | | | [phone] | | | | | | | | +--------+---------+ + + + documented as of this encounter Procedures + +--------+ + + + | Procedure Name | Priori | Date/Time | Associated Diagnosis | Comments | | | ty | | | | + +--------+ + + + | LAB REPORTS | | 01/02/2015 | | Results for this | | | | 12:00 AM | | procedure are in the | | | | PDT | | results section. | + +--------+ + + + documented in this encounter Results LAB REPORTS (01/02/2015 12:00 AM PDT) + + + | Narrative | Performed At | + + + | | | + + + documented in this encounter Visit Diagnoses Not on filedocumented in this encounter"
--- OUTSIDE RECORDS SUMMARY | ~2019-02-11 | XMS | Encounter Summary ---
Demographics + + + | Address | [address] | | | [place] [address] | + + + | Home Phone [...] + | Roxana Bo | ECON | [address] | | | | | [place] | | | | | [address] | | + + + + + Care Team Providers + +------+ + | Care Body Painter Name | Role | Phone | + [...] + + + + | 10/05/ | [employer] | Digestive Health | Lake Dennis MD | Autoimmune hepatitis | | 2015 | | [place] at [facility] [address] | [address] | (HCC) (Primary Dx); | | | | [address] | [place], [place] | Primary biliary | | | | Mailcode: OC8D | [address] | cirrhosis (HCC) | | | | [facility] | [phone] | | | | | and Healing, | | | | | | [address] | | | | | | [place], [place] | | | | | | [address] | | | | | | [phone] | | | +--------+ + + + [...] [address] | | | | | | [place], [place] | | | | | | [address] | | | | | | [phone] | | | | | | | | +--------+---------+ + + + documented as of this encounter Visit Diagnoses + + | Diagnosis | + + | Autoimmune hepatitis (HCC) - Primary Autoimmune hepatitis | + + | Primary biliary cirrhosis (HCC) Biliary cirrhosis | + + documented in this encounter"
--- OUTSIDE RECORDS SUMMARY | ~2019-02-11 | XMS | Encounter Summary ---
Demographics + + + | Address | [address] | | | [place] [address] | + + + | Home Phone | | + + + | Preferred Language | Unknown | + + + | Marital Status | | + + + | Yarsanism Affiliation | CAT | + + + [...] + | Roxana Bo | ECON | [address] | | | | | [place] | | | | | [address] | | + + + + + Care Team Providers + +------+ + | Care Customs Appraiser Name | Role | Phone | + [...] | +--------+ + + + + | 09/03/ | Abstract | Digestive Health | Lake Dennis MD | Blood Test Results | | 2016 | | [place] at [facility] [address] | [address] | | | | | [address] | [place], [place] | | | | | Mailcode: OC8D | [address] | | | | | [facility] | [phone] | | | | | and Healing, | | | | | | [address] | | | | | | [place], [place] | | | | | | [address] | | | | | | [phone] | | | +--------+ + + + [...] | | | | | | [place], [place] | | | | | | [address] | | | | | | [phone] | | | | | | | | +--------+---------+ + + + documented as of this encounter Visit Diagnoses Not on filedocumented in this encounter"
--- OUTSIDE RECORDS SUMMARY | ~2019-02-11 | XMS | Encounter Summary ---
Demographics + + + | Address | [address] | | | [place] [address] | + + + | Home Phone [...] + | Roxana Bo | ECON | [address] | | | | | [place] | | | | | [address] | | + + + + + Care Team Providers + +------+ + | Care Sheet Metal Former Name | Role | Phone | + [...] | | | Procedures | FAMILY | [place], [place] | | | | | CONSULT TO | MEDICINE | [address] | | | | | HEPATOLOGY | [address] | Phone: | | | | | liver bx | [address] | [phone] | | | | | | [place], | Fax: | | | | | | [place] [address] | [phone] | | | | | | Phone: | | | | | | | [phone] | | | | | | | Fax: | | | | | | | [phone] | | +--------+ + + + + + Encounter Details +--------+---------+ + + + | Date | Type | Department | Care Team | Description | +--------+---------+ + + + | 10/03/ | Office | Digestive Health | Lake Dennis MD | Autoimmune hepatitis | | 2012 | Visit | Center at [facility] [address] | [address] | (HCC); Primary | | | | [address] | [place], [place] | biliary cirrhosis | | | | Mailcode: OC8D | [address] | (HCC) | | | | [facility] | [phone] | | | | | and Healing, | | | | | | [address] | | | | | | [place], [place] | | | | | | [address] | | | | | | [phone] | | | +--------+---------+ + + + [...] Lake Dennis MD - 02/04/2012 3:18 PM LOLISI personally interviewed the patient, performed th e [...] daily. Administer after meals. 30 Tab 11 rawemcqepzyj-jirmcoh-xdsfhmn-folic acid chewable 200-0.4 mg Oral Tablet, Chewable Take 2 Tabs by mouth once daily. mqciwqkyxvks-lfpgyqr-qrpy-lutein (CENTRUM SILVER ULTRA WOMEN'S) Oral Tablet Take [...] and formulated with the gastroenterology attending of record, Dr Marci euceda, who agrees with the above assessment and recommendations. Roddy Rivera MD Fellow, Gastroenterology/Hepatology pgr [id number] documented in this encounter Plan of Treatment +--------+---------+ + + + | Date | Type | Specialty | Care Team | Description | +--------+---------+ + + + | 01/26/ | Office | Hepatology | Lake Dennis MD | | | 2019 | Visit | | [address] | | | | | | [place], [place] | | | | | | [address] | | | | | | [phone] | | | | | | | | +--------+---------+ + + + documented as of this encounter Visit Diagnoses + + | Diagnosis | + + | Autoimmune hepatitis (HCC) Autoimmune hepatitis | + + | Primary biliary cirrhosis (HCC) Biliary cirrhosis | + + documented in this encounter
--- OUTSIDE RECORDS SUMMARY | ~2019-02-11 | XMS | Encounter Summary ---
Demographics + + + | Address | [address] | | | [place] [address] | + + + | Home Phone [...] + | Roxana Bo | ECON | [address] | | | | | [place] | | | | | [address] | | + + + + + Care Team Providers + +------+ + | Care Layout Technician Name | Role | Phone | [...] | 2011 | on | Center at [facility] [address] | [address] | (10/07/2011) | | | | [address] | [place], [place] | | | | | Mailcode: OCLuba | [address] | | | | | [facility] | [phone] | | | | | and Healing, | | | | | | [address] | | | | | | [place], [place] | | | | | | [address] | | | | | | [phone] | | | +--------+ + + + [...] [address] | | | | | | [place], [place] | | | | | | [address] | | | | | | [phone] | | | | | | | [...] [address] | [place] [address] | | | [place] | [address] | [address] | [place] [address] | | | [place] | 120 | [...] [address] | [place] [address] | | | [place] | 120 | | | + + + + + documented in this encounter Visit Diagnoses Not on filedocumented in this encounter"
--- OUTSIDE RECORDS SUMMARY | ~2019-02-11 | XMS | Encounter Summary ---
Demographics + + + | Address | [address] | | | [place] [address] | + + + | Home Phone [...] + | Roxana Bo | ECON | [address] | | | | | [place] | | | | | [address] | | + + + + + Care Team Providers + +------+ + | Care Court Worker Name | Role | Phone | + +------+ + | Ventura Carrasquillo MD | PCP | | + +------+ + Encounter Details +--------+ + + + + | Date | Type | Department | Care Team | Description | +--------+ + + + + | 01/04/ | Document-Sc | UNKNOWN DEPARTMENT | Unknown . | | | 2013 | anned | [address] | | | | | | [address] | | | | | | [place], [place] | | | | | | [address] | | | +--------+ + + + [...] | | 2020 | Visit | | [address] | | | | | | [place], [place] | | | | | | [address] | | | | | | [phone] | | | | | | | [...]
--- OUTSIDE RECORDS SUMMARY | ~2019-02-11 | XMS | Encounter Summary ---
Demographics + + + | Address | [address] | | | [place] [address] | + + + | Home Phone [...] + | Roxana Bo | ECON | [address] | | | | | [place] | | | | | [address] | | + + + + + Care Team Providers + +------+ + | Care Tyre Builder Name | Role | Phone | + +------+ + | Ventura Carrasquillo MD | PCP | | + +------+ + Encounter Details +--------+ + + + + | Date | Type | Department | Care Team | Description | +--------+ + + + + | 10/04/ | Documentati | Digestive Health | Lake Dennis MD | | | 2010 | on | [place] at [facility] [address] | [address] | | | | | [address] | [place], [place] | | | | | Mailcode: OC8D | [address] | | | | | [place] for [facility] | [phone] | | | | | and Healing, | | | | | | [address] | | | | | | [place], [place] | | | | | | [address] | | | | | | [phone] | | | +--------+ + + + [...] [place] | | | | | | [address] | | | | | | [phone] | | | | | | | [...] + + | [facility] - | [address] | [place] | [phone] | | [place] | | | | [address] | [place] | [phone] | | [place] | | | | + + + + + | [facility] - | | [place], [place] | | | [place] | | | | + + + + + documented in this encounter Visit Diagnoses Not on filedocumented in this encounter"
--- OUTSIDE RECORDS SUMMARY | ~2019-02-11 | XMS | Encounter Summary ---
Demographics + + + | Address | [address] | | | [place] [address] | + + + | Home Phone | | + + + | Preferred Language | Unknown | + + + | Marital Status | | + + + | Scientology Affiliation | CAT | + + + | Race | White | + + + | Ethnic Group | Not or | + + + Author + + + | Author | [facility] | + + + | Organization | [facility] | + + + | Address | Unknown | + + + | Phone | Unavailable | + + + Support + + + + + | Name | Relationship | Address | Phone | + + + + + | Roxana Bo | ECON | [address] | | | | | [place] | | | | | [address] | | + + + + + Care Team Providers + +------+ + | Care Bioinformaticist Name | Role | Phone | + [...] Medication | | 2014 | Encounter | [place] at [facility] [address] | [address] | | | | | [address] | [place], [place] | | | | | Mailcode: OC8D | [address] | | | | | [facility] | [phone] | | | | | and Healing, | | | | | | [address] | | | | | | | | | | | | [address] | | | | | | [phone] | | | +--------+ + + + [...] [place] | | | | | | [address] | | | | | | [phone] | | | | | | | | +--------+---------+ + + + documented as of this encounter Visit Diagnoses Not on filedocumented in this encounter"
--- OUTSIDE RECORDS SUMMARY | ~2019-02-11 | XMS | Encounter Summary ---
Demographics + + + | Address | [address] | | | [place] [address] | + + + | Home Phone [...] + + + | Author | [facility] | + + + | Organization | [facility] | + + + | Address | Unknown | + + + | Phone | Unavailable | + + + Support + + + + + | Name | Relationship | Address | Phone | + + + + + | Roxana Bo | ECON | [address] | | | | | [place] | | | | | [address] | | + + + + + Care Team Providers + +------+ + | Care Motion Picture Projectionist Name | Role | Phone | + +------+ + | Ventura Carrasquillo MD | PCP | | + +------+ + Encounter Details +--------+ + + + + | Date | Type | Department | Care Team | Description | +--------+ + + + + | 02/04/ | Telephone | Digestive Health | Lake Dennis MD | | | 2019 | | [place] [address] [address] | [address] | | | | [address] | [place], [place] | | | | | Mailcode: OC8D | [address] | | | | | [place] for [facility] | [phone] | | | | | and Healing, | | | | | | [address] | | | | | | [place], [place] | | | | | | [address] | | | | | | [phone] | | | +--------+ + + + [...] [address] | | | | | | [place] | | | | | | [address] | | | | | | [phone] | | | | | | | | +--------+---------+ + + + documented as of this encounter Visit Diagnoses Not on filedocumented in this encounter"
--- OUTSIDE RECORDS SUMMARY | ~2019-02-11 | XMS | Encounter Summary ---
Demographics + + + | Address | [address] | | | [place] [address] | + + + | Home Phone [...] + | Roxana Bo | ECON | [address] | | | | | [place] | | | | | [address] | | + + + + + Care Team Providers + +------+ + | Care Bus Operator Name | Role | Phone | [...] | 2011 | on | Center at [facility] [address] | [address] | (Out side labs from | | | | [address] | [place], [place] | [facility]. | | | | Mailcode: OC8D | [address] | 04/02/12.) | | | | [facility] | [phone] | | | | | and Healing, | | | | | | [address] | | | | | | [place], [place] | | | | | | [address] | | | | | | [phone] | | | +--------+ + + + [...] [address] | | | | | | [place], [place] | | | | | | [address] | | | | | | [phone] | | | | | | | [...] | [facility] - | [address] | [place] | [phone] | | [place] | | | | + + + + + | [facility] - | | [place], [place] | | | [place] | | [...] + + | [facility] - | [address] | [place] | [phone] | | [place] | | | | [...] [address] | [place], [place] | [phone] | | [place] | | | | + + + + + | [facility] - | | [place], [place] | | | [place] | | | | + + + + + documented in this encounter Visit Diagnoses Not on filedocumented in this encounter"
--- OUTSIDE RECORDS SUMMARY | ~2019-02-11 | XMS | Encounter Summary ---
Demographics + + + | Address | [address] | | | [place] [address] | + + + | Home Phone | | + + + | Preferred Language | Unknown | + + + | Marital Status | | + + + | Cheondoism Affiliation | CAT | + + + [...] + | Roxana Bo | ECON | [address] | | | | | [place] | | | | | [address] | | + + + + + Care Team Providers + +------+ + | Care Harp Action Assembler Name | Role | Phone | [...] | | 2010 | | Center at [facility] [address] | [address] | [place] | | | | [address] | [place], [place] | | | | | Mailcode: OC8Luba | [address] | | | | | [facility] | [phone] | | | | | and Healing, | | | | | | [address] | | | | | | [place], [place] | | | | | | [address] | | | | | | [phone] | | | +--------+ + + + [...] [address] | | | | | | [place], [place] | | | | | | [address] | | | | | | [phone] | | | | | | | | +--------+---------+ + + + documented as of this encounter Visit Diagnoses Not on filedocumented in this encounter"
--- OUTSIDE RECORDS SUMMARY | ~2019-02-11 | XMS | Encounter Summary ---
Demographics + + + | Address | [address] | | | [place] [address] | + + + | Home Phone [...] + | Roxana Bo | ECON | [address] | | | | | [place] | | | | | [address] | | + + + + + Care Team Providers + +------+ + | Care Firer Kiln Name | Role | Phone | + +------+ + | Ventura Carrasquillo MD | PCP | | + +------+ + Encounter Details +--------+ + + + + | Date | Type | Department | Care Team | Description | +--------+ + + + + | 04/26/ | Abstract | Digestive Health | Lake Dennis MD | | | 2011 | | [place] [address] [address] | [address] | | | | | [address] | [place], [place] | | | | | Mailcode: OC8D | [address] | | | | | [place] for [facility] | [phone] | | | | | and Healing, | | | | | | [address] | | | | | | [place], [place] | | | | | | [address] | | | | | | [phone] | | | +--------+ + + + [...] [address] | | | | | | [place] | | | | | | [address] | | | | | | [phone] | | | | | | | | +--------+---------+ + + + documented as of this encounter Visit Diagnoses Not on filedocumented in this encounter"
--- OUTSIDE RECORDS SUMMARY | ~2019-02-11 | XMS | Encounter Summary ---
Demographics + + + | Address | [address] | | | [place] [address] | + + + | Home Phone [...] + | Roxana Bo | ECON | [address] | | | | | [place] | | | | | [address] | | + + + + + Care Team Providers + +------+ + | Care Commission Clerk Name | Role | Phone | + [...] Rd | | | | | | [place], [place] | | | | | | [address] | | | +--------+ + + + [...] | | 2020 | Visit | | [address] | | | | | | [place], [place] | | | | | | [address] | | | | | | [phone] | | | | | | | [...]
--- OUTSIDE RECORDS SUMMARY | ~2019-02-11 | XMS | Encounter Summary ---
Demographics + + + | Address | [address] | | | [place] [address] | + + + | Home Phone [...] + | Roxana Bo | ECON | [address] | | | | | [place] | | | | | [address] | | + + + + + Care Team Providers + +------+ + | Care Lead Installer Name | Role | Phone | + +------+ + | Ventura Carrasquillo MD | PCP | | + +------+ + Encounter Details +--------+ + + + + | Date | Type | Department | Care Team | Description | +--------+ + + + + | 09/13/ | Abstract | Digestive Health | Lake Dennis MD | | | 2019 | | [place] [address] [address] | [address] | | | | | [address] | [place], [place] | | | | | Mailcode: OC8D | [address] | | | | | [place] for [facility] | [phone] | | | | | and Healing, | | | | | | [address] | | | | | | [place], [place] | | | | | | [address] | | | | | | [phone] | | | +--------+ + + + [...] [address] | | | | | | [place] | | | | | | [address] | | | | | | [phone] | | | | | | | | +--------+---------+ + + + documented as of this encounter Visit Diagnoses Not on filedocumented in this encounter"
--- OUTSIDE RECORDS SUMMARY | ~2019-02-11 | XMS | Encounter Summary ---
Demographics + + + | Address | [address] | | | [place] [address] | + + + | Home Phone [...] + | Roxana Bo | ECON | [address] | | | | | [place] | | | | | [address] | | + + + + + Care Team Providers + +------+ + | Care Jacquard Card Cutter Name | Role | Phone | [...] Description | +--------+---------+ + + + | 01/31/ | Office | Digestive Health | Lake Ontiveros MD | Primary biliary | | 2012 | Visit | Center at [facility] [address] | [address] | cirrhosis (HCC) | | | | [address] | [place], [place] | (Primary Dx); | | | | Mailcode: OC8D | [id number] | Autoimmune hepatitis | | | | [facility] | [phone] | (HCC) | | | | and Healing, | | | | | | [address] | | | | | | [place], [place] | | | | | | [address] | | | | | | [phone] | | | +--------+---------+ + + + [...] + + + | Blood Pressure | 152/77 | 01/31/2013 12:44 PM | | | | | PDT | | + + + + + | Pulse | 66 | 01/31/2013 12:44 PM | | | | | PDT | | + + + + + | Temperature | 36.8 C (98.3 F) | 01/31/2013 12:44 PM | | | | | PDT | | + + + + + | Respiratory Rate | 17 | 01/31/2013 12:44 PM | | | | | PDT | | + + + + + | Oxygen Saturation | - | - | | + + + + + | Inhaled Oxygen | - | - | | | Concentration | | | | + + + + + | Weight | 73.1 kg (161 lb 3.2 | 01/31/2013 12:44 PM | | | | oz) | PDT | | + + + + + | Height | 160 cm (5' 3") | 01/31/2013 12:44 PM | | | | | PDT | | + + + + + | Body Mass Index | 28.56 | 01/31/2013 12:44 PM | | | | | PDT | | + + + + + documented in this encounter Progress Notes Lake Ontiveros MD - 01/31/2013 12:33 PM PDTFormatting of this note might be [...] seven days . azaTHIOprine 50 mg Oral tablet Take 1 Tab by mouth once daily. Administer after meals. cephALEXin 500 mg Oral capsule Take 4 caps by mouth prior to procedure. apmhmyzjdpnd-wzlzmwc-ndgrmqj-folic acid chewable 200-0.4 mg Oral Tablet, Chewable Take 2 Tabs by mouth once daily. qttnegbxjugj-qqacctq-outv-lutein (CENTRUM SILVER ULTRA WOMEN'S) Oral Tablet Take 1 Tab by mouth once daily. [place]-3 Fatty Acids-Vitamin E (FISH OIL) 1,000 mg Oral capsule Take 2 Caps by mouth onc e daily. ursodiol 300 mg Oral capsule Take 3 Caps by mouth once daily at bedtime. No [...] or spider hemangomota. Laboratory Data: Recent Labs 07/02/12 1100 10/01/12 0825 12/15/12 0935 NA 135 141 140 CR 0.70 0.77 0.87 AST 20 19 18 ALT 10 10 8 TBILI 0.8 0.5 0.7 ALB 3.9 3.9 3.8 WBC 5.1 6 5.4 HB 14.3 13.9 14 PLT 355 290 327 INRPT 1 0.9 1 Assessment/Plan: Patient compliant with her meds. Her liver tests cont to be normal on low dose Imuran and u rsodiol. Plan 1) cont current meds 2) d7pubejq CMP, CBC, plts, diff, 3) RTC in 1 yr Counseling Time: [...] Rogers | | | | | | [place], [place] | | | | | | [address] | | | | | | [phone] | | | | | | | | +--------+---------+ + + + documented as of this encounter Visit Diagnoses + + | Diagnosis | + + | Primary biliary cirrhosis (HCC) - Primary Biliary cirrhosis | + + | Autoimmune hepatitis (HCC) Autoimmune hepatitis | + + documented in this encounter
--- OUTSIDE RECORDS SUMMARY | ~2019-02-11 | XMS | Encounter Summary ---
Demographics + + + | Address | [address] | | | [place] [address] | + + + | Home Phone [...] + | Roxana Bo | ECON | [address] | | | | | [place] | | | | | [address] | | + + + + + Care Team Providers + +------+ + | Care Imaging Nurse Name | Role | Phone | [...] | 2010 | on | Center at [facility] [address] | [address] | management (Dose | | | | [address] | [place], [place] | adjustment for | | | | Mailcode: OC8D | [phone] | Imuran) | | | | [facility] | [phone] | | | | | and Healing, | | | | | | [address] | | | | | | [place], [place] | | | | | | [address] | | | | | | [phone] | | | +--------+ + + + [...] Rogers | | | | | | [place], [place] | | | | | | [address] | | | | | | [phone] | | | | | | | | +--------+---------+ + + + documented as of this encounter Visit Diagnoses Not on filedocumented in this encounter"
--- OUTSIDE RECORDS SUMMARY | ~2019-02-11 | XMS | Encounter Summary ---
Demographics + + + | Address | [address] | | | [place] [address] | + + + | Home Phone [...] + | Roxana Bo | ECON | [address] | | | | | [place] | | | | | [address] | | + + + + + Care Team Providers + +------+ + | Care Tab Machine Operator Name | Role | Phone [...] | +--------+ + + + + | 01/14/ | Abstract | Digestive Health | Lake Dennis MD | Medical Records | | 2017 | | [place] [address] [address] | [address] | Review | | | | [address] | [place], [place] | | | | | Mailcode: OC8D | [address] | | | | | [facility] | [phone] | | | | | and Healing, | | | | | | [address] | | | | | | [place], [place] | | | | | | [address] | | | | | | [phone] | | | +--------+ + + + [...] Rogers | | | | | | [place], [place] | | | | | | [address] | | | | | | [phone] | | | | | | | | +--------+---------+ + + + documented as of this encounter Visit Diagnoses Not on filedocumented in this encounter"
--- OUTSIDE RECORDS SUMMARY | ~2019-02-11 | XMS | Encounter Summary ---
Demographics + + + | Address | [address] | | | [place] [address] | + + + | Home Phone [...] + | Roxana Bo | ECON | [address] | | | | | [place] | | | | | [address] | | + + + + + Care Team Providers + +------+ + | Care Ui Application Developer Name | Role | Phone | + [...] Bloodwork | | 2016 | Encounter | [facility] [address] | [address] | results | | | | [address] | [place], [place] | | | | | Mailcode: OC8D | [address] | | | | | [facility] | [phone] | | | | | and Healing, | | | | | | [address] | | | | | | [facility] [place] | | | | | | [address] | | | | | | [phone] | | | +--------+ + + + [...] Rogers | | | | | | [place] | | | | | | [address] | | | | | | [phone] | | | | | | | | +--------+---------+ + + + documented as of this encounter Visit Diagnoses Not on filedocumented in this encounter"
--- OUTSIDE RECORDS SUMMARY | ~2019-02-11 | XMS | Encounter Summary ---
Demographics + + + | Address | [address] | | | [place] [address] | + + + | Home Phone [...] + | Roxana Bo | ECON | [address] | | | | | [place] | | | | | [address] | | + + + + + Care Team Providers + +------+ + | Care Recreation Attendant Name | Role | Phone | + +------+ + | No Pcp Per Patient | PCP | Unavailable | + +------+ + Reason for Visit + + + | Reason | Comments | + + + | Blood Test Results | [facility] 05/07/15 Lab Results (CBC, AST..) | + + + Encounter Details +--------+ + + + + | Date | Type | Department | Care Team | Description | +--------+ + + + + | 05/23/ | Abstract | Digestive Health | Lake Dennis MD | Blood Test Results | | 2016 | | [place] [address] [address] | [address] | ([facility] | | | | [address] | [place], [place] | 05/07/15 Lab Results | | | | Mailcode: OC8D | [id number] | (CBC, AST..)) | | | | [facility] | [phone] | | | | | and Healing, | | | | | | [address] | | | | | | [place], [place] | | | | | | [address] | | | | | | [phone] | | | +--------+ + + + [...] Rogers | | | | | | [place], [place] | | | | | | [address] | | | | | | [phone] | | | | | | | | +--------+---------+ + + + documented as of this encounter Visit Diagnoses Not on filedocumented in this encounter"
--- OUTSIDE RECORDS SUMMARY | ~2019-02-11 | XMS | Encounter Summary ---
Demographics + + + | Address | [address] | | | [place] [address] | + + + | Home Phone [...] + | Roxana Bo | ECON | [address] | | | | | [place] | | | | | [address] | | + + + + + Care Team Providers + +------+ + | Care Life Science Research Assistant Name | Role | Phone | + +------+ + | Ventura Carrasquillo MD | PCP | | + +------+ + Encounter Details +--------+ + + + + | Date | Type | Department | Care Team | Description | +--------+ + + + + | 11/11/ | Documentati | Digestive Health | Lake Dennis MD | | | 2010 | on | [place] [facility] [address] | [address] | | | | | [address] | [place], [place] | | | | | Mailcode: OC8D | [phone] | | | | | [place] for [facility] | [phone] | | | | | and Healing, | | | | | | [address] | | | | | | [place], [place] | | | | | | [address] | | | | | | [phone] | | | +--------+ + + + [...] Rogers | | | | | | [facility] [place] | | | | | | [address] | | | | | | [phone] | | | | | | | | +--------+---------+ + + + documented as of this encounter Procedures + +--------+ + + + | Procedure Name | Priori | Date/Time | Associated Diagnosis | Comments | | | ty | | | | + +--------+ + + + | INR | Routin | 10/02/2010 | | Results [...] AT,GLUC,CA,AST,ALT,B | | | | | | JOHN TOTAL,ALK | | | | | | [...] 88 | 65 - 110 mg/dL | NON [facility] | | | PLASMA | | | LAB | | | (LAB) | | | | | + +-------+ + + + | BUN, PLASMA | 14 | mg/dL | NON [facility] | | | (LAB) | | | LAB | | + +-------+ + + + | CREATININE | 0.77 | mg/dL | NON [facility] | | | PLASMA | | | LAB | | | (LAB) | | | | | + +-------+ + + + | TOTAL | | g/dL | NON [facility] | | | PROTEIN, | | | LAB | | | PLASMA | | | | | | (LAB) | | | | | + +-------+ + + + | ALBUMIN, | 3.9 | g/dL | NON [facility] | | | PLASMA | | | LAB | | | (LAB) | | | | | + +-------+ + + + | CALCIUM, | | mg/dL | NON [facility] | | | PLASMA | | | LAB | | | (LAB) | | | | | + +-------+ + + + | BILIRUBIN | 0.5 | Transcutaneous | NON [facility] | | | TOTAL | | Bilirubinometer | LAB | | + +-------+ + + + | ALK PHOS | 97 | U/L | NON [facility] | | | | | | LAB | | + +-------+ + + + | AST(SGOT) | 20 | U/L | NON [facility] | | | | | | LAB | | + +-------+ + + + | SODIUM, | 141 | mmol/L | NON [facility] | | | PLASMA | | | LAB | | | (LAB) | | | | | + +-------+ + + + | POTASSIUM, | 3.7 | mmol/L | NON [facility] | | | PLASMA | | | LAB | | | (LAB) | | | | | + +-------+ + + + | CHLORIDE, | | mmol/L | NON [facility] | | | PLASMA | | | LAB | | | (LAB) | | | | | + +-------+ + + + | TOTAL CO2, | | mmol/L | NON [facility] | | [...] | + +---------+ + + CBC ONLY (10/02/2010) + +-------+ + + + | Component | Value | Ref Range | Performed | Pathologist | | | | | At | Signature | + +-------+ + + + | WHITE CELL | 5.5 | K/cu mm | NON [facility] | | | COUNT | | | LAB | | + +-------+ + + + | RED CELL | | M/cu mm | NON [facility] | | | COUNT | | | LAB | | + +-------+ + + + | HEMOGLOBIN | 14.7 | 12.1999 - 15 | NON [facility] | | | | | g/dL | LAB | | + +-------+ + + + | HEMATOCRIT | 44.1 | % | NON [facility] | | | | | | LAB | | + +-------+ + + + | MCV | | fL | NON [facility] | | | | | | LAB | | + +-------+ + + + | MCH | | pg | NON [facility] | | | | | | LAB | | + +-------+ + + + | MCHC | | g/dL | NON [facility] | | | | | | LAB | | + +-------+ + + + | PLATELET | 264 | K/cu mm | NON [facility] | | | COUNT | | | LAB | | + +-------+ + + + | NEUTROPHIL | | % | NON [facility] | | | % | | | LAB | | + +-------+ + + + | LYMPHOCYTE | | % | NON [facility] | | | % | | | LAB | | + +-------+ + + + | MONOCYTE % | | % | NON [facility] | | | | | | LAB | | + +-------+ + + + | EOS % | | % | NON [facility] | | | | | | LAB | | + +-------+ + + + | BASO % | | % | NON [facility] | | | | | | LAB | | + +-------+ + + + | RDW | | % | NON [facility] | | [...] | | | + +---------+ + + INR (10/02/2010) + +-------+ + + + | Component | Value | Ref Range | Performed | Pathologist | | | | | At | Signature | + +-------+ + + + | INR | 0.9 | INR | NON [facility] | | | | [...]
--- OUTSIDE RECORDS SUMMARY | ~2019-02-11 | XMS | Encounter Summary ---
Demographics + + + | Address | [address] | | | [place] [address] | + + + | Home Phone [...] + | Roxana Bo | ECON | [address] | | | | | [place] | | | | | [address] | | + + + + + Care Team Providers + +------+ + | Care Senior Ui Ux Developer Name | Role | Phone | [...] | 2010 | on | Center at [facility] [address] | [address] | (04/03/2011) | | | | [address] | [place], [place] | | | | | Mailcode: OC8Luba | [address] | | | | | [facility] | [phone] | | | | | and Healing, | | | | | | [address] | | | | | | [place], [place] | | | | | | [address] | | | | | | [phone] | | | +--------+ + + + [...] Rogers | | | | | | [place], [place] | | | | | | [address] | | | | | | [phone] | | | | | | | [...] [address] | [place] [address] | | | [place] | [address] | [address] | [place] [address] | | | [place] | [address] | [...] [address] | [place] [address] | | | [place] | [address] | | | + + + + + documented in this encounter Visit Diagnoses Not on filedocumented in this encounter"
--- OUTSIDE RECORDS SUMMARY | ~2019-02-11 | XMS | Encounter Summary ---
Demographics + + + | Address | [address] | | | [place] [address] | + + + | Home Phone [...] Author + + + | Author | [facility] | + + + | Organization | [facility] | + + + | Address | Unknown | + + + | Phone | Unavailable | + + + Support + + + + + | Name | Relationship | Address | Phone | + + + + + | Roxana Bo | ECON | [address] | | | | | [place] | | | | | [address] | | + + + + + Care Team Providers + +------+ + | Care Occupational Health Coordinator Name | Role | Phone | + +------+ + | Ventura Carrasquillo MD | PCP | | + +------+ + Encounter Details +--------+ + + + + | Date | Type | Department | Care Team | Description | +--------+ + + + + | 07/06/ | Abstract | Digestive Health | Lake Dennis MD | | | 2011 | | [place] [address] [address] | [address] | | | | | [address] | [place], [place] | | | | | Mailcode: OC8D | [address] | | | | | [facility] | [phone] | | | | | and Healing, | | | | | | [address] | | | | | | [place], [place] | | | | | | [address] | | | | | | [phone] | | | +--------+ + + + [...] Rogers | | | | | | [place] | | | | | | [address] | | | | | | [phone] | | | | | | | | +--------+---------+ + + + documented as of this encounter Visit Diagnoses Not on filedocumented in this encounter"
--- OUTSIDE RECORDS SUMMARY | ~2019-02-11 | XMS | Encounter Summary ---
Demographics + + + | Address | [address] | | | [place] [address] | + + + | Home Phone [...] + | Roxana Bo | ECON | [address] | | | | | [place] | | | | | [address] | | + + + + + Care Team Providers + +------+ + | Care Talent Acquisition Sourcer Name | Role | Phone | + +------+ + | Ventura Carrasquillo MD | PCP | | + +------+ + Reason for Visit + + + | Reason | Comments | + + + | Blood Test Results | 01/02/2011 | + + + Encounter Details +--------+ + + + + | Date | Type | Department | Care Team | Description | +--------+ + + + + | 01/08/ | Documentati | Digestive Health | Lake Dennis MD | Blood Test Results | | 2010 | on | Center at [facility] [address] | [address] | (01/02/2011) | | | | [address] | [place], [place] | | | | | Mailcode: OCLuba | [address] | | | | | [facility] | [phone] | | | | | and Healing, | | | | | | [address] | | | | | | [place], [place] | | | | | | [address] | | | | | | [phone] | | | +--------+ + + + [...] Rogers | | | | | | [place], [place] | | | | | | [address] | | | | | | [phone] | | | | | | | | +--------+---------+ + + + documented as of this encounter Procedures + +--------+ + + + | Procedure Name | Priori | Date/Time | Associated Diagnosis | Comments | | | ty | | | | + +--------+ + + + | CBC, WITH | Routin | 01/02/2011 | | Results for this | | DIFFERENTIAL | e | | | procedure are in the | | | | | | results section. | + +--------+ + + + | COMPLETE METABOLIC | Routin | 01/02/2011 | | Results for this | | [...] COMPLETE METABOLIC SET (NA,K,CL,CO2,BUN,CREAT,GLUC,CA,AST,ALT,BILI TOTAL,ALK PHOS,ALB,PROT TOTAL) (01/02/2011) + +-------+ + + + | Component | Value | Ref Range | Performed | Pathologist | | | | | At | Signature | + +-------+ + + + | GLUCOSE, | 82 [...] +-------+ + + + | CREATININE | 0.76 | mg/dL | [facility] | | | PLASMA | | | LAB - | | | (LAB) | | | [place] | | + +-------+ + + + | ALBUMIN, | 4.1 | g/dL | [facility] | | | [...] + + + | ALK PHOS | 107 | U/L | [facility] | | | | | | LAB - | | | | | | [place] | | + +-------+ + + + | AST(SGOT) | 24 | U/L | [facility] | | | | | | LAB - | | | | | | [place] | | + +-------+ + + + | SODIUM, | [address] | [place] [address] | | | [place] | [address] | | | + + + + + CBC, WITH DIFFERENTIAL (01/02/2011) + + + + + + | [...] | HEMOGLOBIN | 15.1 | g/dL | [facility] | | | | | | LAB - | | | | | | [place] | | + + + + + + | HEMATOCRIT | 46.3 (H) | % | [facility] | | | | | | LAB - | | | | | | [place] | | + + + + + + | PLATELET | 291 | K/cu mm | [facility] | | [...] [address] | [place] [address] | | | [place] | [address] | | | + + + + + documented in this encounter Visit Diagnoses Not on filedocumented in this encounter"
--- OUTSIDE RECORDS SUMMARY | ~2019-02-11 | XMS | Encounter Summary ---
Demographics + + + | Address | [address] | | | [place] [address] | + + + | Home Phone [...] + | Roxana Bo | ECON | [address] | | | | | [place] | | | | | [address] | | + + + + + Care Team Providers + +------+ + | Care Housemaid Name | Role | Phone | + +------+ + | Ventura Carrasquillo MD | PCP | | + +------+ + Encounter Details +--------+ + + + + | Date | Type | Department | Care Team | Description | +--------+ + + + + | 02/04/ | Telephone | Digestive Health | Lake Dennis MD | | | 2019 | | [place] [address] [address] | [address] | | | | | [address] | [place], [place] | | | | | Mailcode: OC8D | [address] | | | | | [facility] for [facility] | [phone] | | | | | and Healing, | | | | | | [address] | | | | | | [place], [place] | | | | | | [address] | | | | | | [phone] | | | +--------+ + + + [...] Rogers | | | | | | [place] | | | | | | [address] | | | | | | [phone] | | | | | | | | +--------+---------+ + + + documented as of this encounter Visit Diagnoses Not on filedocumented in this encounter"
--- OUTSIDE RECORDS SUMMARY | ~2019-02-11 | XMS | Encounter Summary ---
Demographics + + + | Address | [address] | | | [place] [address] | + + + | Home Phone [...] + | Roxana Bo | ECON | [address] | | | | | [place] | | | | | [address] | | + + + + + Care Team Providers + +------+ + | Care Teletype Clerk Name | Role | Phone | [...] | 2013 | on | Center at [facility] [address] | [address] | (Out side labs from | | | | [address] | [place], [place] | [facility]. | | | | Mailcode: OC8D | [address] | 10/04/13.) | | | | [facility] | [phone] | | | | | and Healing, | | | | | | [address] | | | | | | [place], [place] | | | | | | [address] | | | | | | [phone] | | | +--------+ + + + [...] [address] | | | | | | [place], [place] | | | | | | [address] | | | | | | [phone] | | | | | | | [...] [address] | [place], [place] | [phone] | | [place] | | | | [...] + + | [facility] - | [address] | [place] | [phone] | | [place] | | | | + + + + + documented in this encounter Visit Diagnoses Not on filedocumented in this encounter"
--- OUTSIDE RECORDS SUMMARY | ~2019-02-11 | XMS | Encounter Summary ---
Demographics + + + | Address | [address] | | | [place] [address] | + + + | Home Phone [...] + | Roxana Bo | ECON | [address] | | | | | [place] | | | | | [address] | | + + + + + Care Team Providers + +------+ + | Care Bow Maker Production Name | Role | Phone | + [...] | | 2010 | | Center at [facility] [address] | [address] | [place] | | | | [address] | [place], [place] | | | | | Mailcode: OC8Luba | [address] | | | | | [facility] | [phone] | | | | | and Healing, | | | | | | [address] | | | | | | [place], [place] | | | | | | [address] | | | | | | [phone] | | | +--------+ + + + [...] [address] | | | | | | [place], [place] | | | | | | [address] | | | | | | [phone] | | | | | | | | +--------+---------+ + + + documented as of this encounter Visit Diagnoses Not on filedocumented in this encounter"
--- OUTSIDE RECORDS SUMMARY | ~2019-02-11 | XMS | Encounter Summary ---
Demographics + + + | Address | [address] | | | [place] [address] | + + + | Home Phone [...] + | Roxana Bo | ECON | [address] | | | | | [place] | | | | | [address] | | + + + + + Care Team Providers + +------+ + | Care Hr Advisor Name | Role | Phone | [...] | Medication | | 2010 | | [place] [address] [address] | [address] | management | | | | [address] | [place], [place] | | | | | Mailcode: OC8D | [address] | | | | | [facility] | [phone] | | | | | and Healing, | | | | | | [address] | | | | | | [place], [place] | | | | | | [address] | | | | | | [phone] | | | +--------+ + + + [...] Rogers | | | | | | [place], [place] | | | | | | [address] | | | | | | [phone] | | | | | | | | +--------+---------+ + + + documented as of this encounter Visit Diagnoses Not on filedocumented in this encounter"
--- OUTSIDE RECORDS SUMMARY | ~2019-02-11 | XMS | Encounter Summary ---
Demographics + + + | Address | [address] | | | [place] [address] | + + + | Home Phone [...] + | Roxana Bo | ECON | [address] | | | | | [place] | | | | | [address] | | + + + + + Care Team Providers + +------+ + | Care Waste Machine Operator Name | Role | Phone | + +------+ + | Ventura Carrasquillo MD | PCP | | + +------+ + Reason for Visit + + + | Reason | Comments | + + + | Medication Question | | + + + Encounter Details +--------+ + + + + | Date | Type | Department | Care Team | Description | +--------+ + + + + | 01/21/ | Telephone | Digestive Health | Lake Dennis MD | Medication Question | | 2017 | | [place] [address] [address] | [address] | | | | | [address] | [place], [place] | | | | | Mailcode: OC8D | [address] | | | | | [facility] | [phone] | | | | | and Healing, | | | | | | [address] | | | | | | [place], [place] | | | | | | [address] | | | | | | [phone] | | | +--------+ + + + [...] [address] | | | | | | [place], [place] | | | | | | [address] | | | | | | [phone] | | | | | | | | +--------+---------+ + + + documented as of this encounter Visit Diagnoses Not on filedocumented in this encounter"
--- OUTSIDE RECORDS SUMMARY | ~2019-02-11 | XMS | Encounter Summary ---
Demographics + + + | Address | [address] | | | [place] [address] | + + + | Home Phone [...] + | Roxana Bo | ECON | [address] | | | | | [place] | | | | | [address] | | + + + + + Care Team Providers + +------+ + | Care Retail Assistant Manager Name | Role | Phone | [...] | | | | | | e [address] | | | | | | | [address] | | | | | | | [facility] [address] | | | | | | | [facility] | | | | | | | [facility] | | | | | | | [place], [place] | | | | | | | [address] | | | | | | | Phone: | | | | | | | [phone] | | | | | | | Fax: | | | | | | | [phone] | +--------+--------+ + + + + Encounter Details +--------+ + + + + | Date | Type | Department | Care Team | Description | +--------+ + + + + | 02/20/ | Hospital | [facility] [address] | Lake Dennis MD | | | 2008 | Encounter | [address] | [address] | | | | | 11[address] [facility] | [place], [place] | | | | | [place], [place] | [address] | | | | | [address] | [phone] | | | | | [phone] | | | | | | | Carolyn oJe MD | | +--------+ + + + [...] [address] | | | | | | [place], [place] | | | | | | [address] | | | | | | [phone] | | | | | | | [...] DEPARTMENT OF | [address] | [place] [address] | | | PATHOLOGY | [address] [...] | + + + + + | [facility] DEPARTMENT OF | [address] | [place] [address] | | | PATHOLOGY | [address] [...] [facility] | | | PATHOLOGY | Liver [facility] [place] | | DEPARTMENT | | | | Biopsy Final | | OF | | | | Pathologic | | PATHOLOGY | | | | Diagnosis:Liver, coe[place]'alene, | | | | | | biopsy:- Chronic active | | | | | | hepatitis (see | | | | | | comment) | | | | | | Comment: Sections | | | | | | reveal liver parenchyma | | | | | | with dense portal and | | | | | | lobularchronic | | | | | | inflammatory infiltrate | | | | | | with many plasma cells. | | | | | | Minimal macro | | | | | | andmicrosteatosis is | | | | | | observed, involving less | | | | | | than 5% of | | | | | | hepatocytes. Thereis | | | | | | no significant | | | | | | neutrophilic infiltrate | | | | | | or hepatocyte ballooning | | | | | | and noMallory's hyaline | | | | | | is noted. There are | | | | | | no granulomas and no | | | | | | significantbile duct | | | | | | damage, periductal | | | | | | fibrosis, or | | | | | | cholestasis. Trichrom | | | | | | e andreticulin stains | | | | | | confirm fibrosis in | | | | | | portal areas only. PAS/D | | | | | | and ironstains reveal | | | | | | no additional pathologic | | | | | | | | | | | | abnormalities. [...] M.D./PathologistT:02/21/ | | | | | | / Clinical | | | | | | History:The patient is a | | | | | | 58-year-old | | | | | | female. Per | | | | | | Epic: Patient has | | | | | | elevated liverfunction | | | | | | tests and possible | | | | | | autoimmune hepatitis | | | | | | with an LYDIA of | | | [...] | | | | | | of | | | | | | 52. Received | | | | | | informalin is a single, | | | | | | thread-like fragment of | | | | | | soft tissue measuring | | | | | | 0.1 cmin diameter and | | | | | | 2.5 cm in length. The | | | | | | entire specimen is | | | | | | submitted. | | | | | | [...] | | | | | | Rendering | | | | | | Diagnostician: Sharla Arnold | | | | | | Bala | | | | | | Michelle | | | | | | gigi Signed 02/23/2009 | | | | + + + + + + + + | Specimen | + + | Other | + + + + + + + | Performing | Address | City/State/Zipcode | Phone Number | | Organization | | | | + + + + + | [facility] | [address] | [place] [address] | | | PATHOLOGY | [address] | | | + + + + + documented in this encounter Visit Diagnoses Not on filedocumented in this encounter
--- OUTSIDE RECORDS SUMMARY | ~2019-02-11 | XMS | Encounter Summary ---
Demographics + + + | Address | [address] | | | [place] [address] | + + + | Home Phone [...] + | Roxana Bo | ECON | [address] | | | | | [place] | | | | | [address] | | + + + + + Care Team Providers + +------+ + | Care Palliative Nurse Name | Role | Phone | [...] | | | | | | [address] | | | | | | | [address] | | | | | | | [place], [place] | | | | | | | [address] | | | | | | | Phone: | | | | | | | [phone] | | | | | | | Fax: | | | | | | | [phone] | +--------+--------+ + + + + Encounter Details +--------+---------+ + + + | Date | Type | Department | Care Team | Description | +--------+---------+ + + + | 02/05/ | Office | Digestive Health | Lake Dennis MD | Autoimmune hepatitis | | 2015 | Visit | Center at [facility] [address] | [address] | (HCC) (Primary Dx); | | | | [address] | [place], [place] | Primary biliary | | | | Mailcode: OC8D | [address] | cirrhosis (HCC) | | | | [place] for [facility] | [phone] | | | | | and Healing, | | | | | | [address] | | | | | | [place], [place] | | | | | | [address] | | | | | | [phone] | | | +--------+---------+ + + + [...] th e original. HEPATOLOGY FOLLOW UP VISIT Diagnoses: 1. [...] 4 caps by mouth prior to procedure. ahgztqghlkwp-xkwdrpg-fwgiosc-folic acid chewable 200-0.4 mg Oral Tablet, Chewable Take 2 Tabs by mouth once daily. alwwhxvapasb-pncqlik-lkuu-lutein (CENTRUM SILVER ULTRA WOMEN'S) Oral Tablet Take 1 Tab by mouth once daily. [place]-3 Fatty Acids-Vitamin E (FISH OIL) 1,000 mg [...] decompensation. Plan 1) cont current meds 2) u8ooicgk liver set, CBC, plts, diff 3) meds [...] [address] | | | | | | [place], [place] | | | | | | [address] | | | | | | [phone] | | | | | | | | +--------+---------+ + + + documented as of this encounter Visit Diagnoses + + | Diagnosis | + + | Autoimmune hepatitis (HCC) - Primary Autoimmune hepatitis | + + | Primary biliary cirrhosis (HCC) Biliary cirrhosis | + + documented in this encounter
--- OUTSIDE RECORDS SUMMARY | ~2019-02-11 | XMS | Encounter Summary ---
Demographics + + + | Address | [address] | | | [place] [address] | + + + | Home Phone [...] + | Roxana Bo | ECON | [address] | | | | | [place] | | | | | [address] | | + + + + + Care Team Providers + +------+ + | Care Help Desk Team Leader Name | Role | Phone | + +------+ + | Ventura Carrasquillo MD | PCP | | + +------+ + Reason for Visit + + + | Reason | Comments | + + + | Blood Test Results | Out side labs from [facility]. 07/01/13. | + + + Encounter Details +--------+ + + + + | Date | Type | Department | Care Team | Description | +--------+ + + + + | 07/11/ | Documentati | Digestive Health | Lake Dennis MD | Blood Test Results | | 2013 | on | Center at [facility] [address] | [address] | (Out side labs from | | | | [address] | [place], [place] | [facility]. | | | | Mailcode: OC8D | [id number] | 07/01/13.) | | | | [facility] | [phone] | | | | | and Healing, | | | | | | [address] | | | | | | [place], [place] | | | | | | [address] | | | | | | [phone] | | | +--------+ + + + [...] [address] | | | | | | [place], [place] | | | | | | [address] | | | | | | [phone] | | | | | | | | +--------+---------+ + + + documented as of this encounter Procedures + +--------+ + + + | Procedure Name | Priori | Date/Time | Associated Diagnosis | Comments | | | ty | | | | + +--------+ + + + | CBC, WITH | Routin | 07/01/2013 | | Results for this | | DIFFERENTIAL | e | 9:41 AM | | procedure are in the | | | | PST | | results section. | + +--------+ + + + | COMPLETE METABOLIC | Routin | 07/01/2013 | | Results for this | | SET | e | 9:41 AM | | procedure are in the | | (NA,K,CL,CO2,BUN,CRE | | PST | | results section. | | AT,GLUC,CA,AST,ALT,B | | | | | | JONH TOTAL,ALK | | | | | | PHOS,ALB,PROT TOTAL) | | | | | + +--------+ + + + documented in this encounter Results COMPLETE METABOLIC SET (NA,K,CL,CO2,BUN,CREAT,GLUC,CA,AST,ALT,BILI TOTAL,ALK PHOS,ALB,PROT TOTAL) (07/01/2013 9:41 AM PST) + +-------+ + + + | Component | Value | Ref Range | Performed | Pathologist | | | | | At | Signature | + +-------+ + + + | GLUCOSE, | 80 | mg/dL | [facility] | | | PLASMA | | | LAB - | | | (LAB) | | | [place] | | + +-------+ + + + | BUN, PLASMA | 18 | mg/dL | [facility] | | | (LAB) | | | LAB - | | | | | | [place] | | + +-------+ + + + | CREATININE | 0.84 | mg/dL | [facility] | | | PLASMA | | | LAB - | | | (LAB) | | | [place] | | + +-------+ + + + | ALBUMIN, | 3.8 | g/dL | [facility] | | | PLASMA | | | LAB - | | | (LAB) | | | [place] | | + +-------+ + + + | BILIRUBIN | 0.8 | Transcutaneous | [facility] | | | TOTAL | | Bilirubinometer | LAB - | | | | | | [place] | | + +-------+ + + + | ALK PHOS | 112 | U/L | [facility] | | | | | | LAB - | | | | | | [place] | | + +-------+ + + + | AST(SGOT) | 16 [...] +-------+ + + + | POTASSIUM, | 4.1 | mmol/L | [facility] | | | [...] - | [address] | [place], [place] | [phone] | | [place] | | | | + + + + + CBC, WITH DIFFERENTIAL (07/01/2013 9:41 AM PST) + +-------+ + + + [...] +-------+ + + + | PLATELET | 36 | K/cu mm | [facility] | | [...] | [facility] - | [address] | [place] | [phone] | | [place] | | | | + + + + + documented in this encounter Visit Diagnoses Not on filedocumented in this encounter"
--- OUTSIDE RECORDS SUMMARY | ~2019-02-11 | XMS | Encounter Summary ---
Demographics + + + | Address | [address] | | | [place] [address] | + + + | Home Phone [...] + | Roxana Bo | ECON | [address] | | | | | [place] | | | | | [address] | | + + + + + Care Team Providers + +------+ + | Care Radiator Cleaner Name | Role | Phone | [...] | on | Center at [facility] [address] | [address] | (Out side labs from | | | | [address] | [place], [place] | [facility]. | | | | Mailcode: OC8D | [id number] | 04/03/14.) | | | | [facility] | [phone] | | | | | and Healing, | | | | | | [address] | | | | | | [place], [place] | | | | | | [address] | | | | | | [phone] | | | +--------+ + + + [...] [address] | | | | | | [place], [place] | | | | | | [address] | | | | | | [phone] | | | | | | | [...] - | [address] | [place], [place] | [phone] | | [place] | | | | [...] + + | [facility] - | [address] | [place] | [phone] | | [place] | | | | + + + + + documented in this encounter Visit Diagnoses Not on filedocumented in this encounter"
--- OUTSIDE RECORDS SUMMARY | ~2019-02-11 | XMS | Encounter Summary ---
Demographics + + + | Address | [address] | | | [place] [address] | + + + | Home Phone [...] + | Roxana Bo | ECON | [address] | | | | | [place] | | | | | [address] | | + + + + + Care Team Providers + +------+ + | Care Baker Bread Name | Role | Phone | + +------+ + | Ventura Carrasquillo MD | PCP | | + +------+ + Reason for Visit + + + | Reason | Comments | + + + | Blood Test Results | [facility] 01/02/15 Lab Results [...] Test Results | | 2015 | | [place] [address] [address] | [address] | ([facility] | | | | [address] | [place], [place] | 01/02/15 Lab Results | | | | Mailcode: OC8D | [id number] | (AST, alk phos, | | | | [facility] | [phone] | bili, protein, | | | | and Healing, | | albumin, bili, ALT, | | | | [address] | | CBC)) | | | | [place], [place] | | | | | | [address] | | | | | | [phone] | | | +--------+ + + + [...] | Visit | | [address] | | | | | | [place], [place] | | | | | | [address] | | | | | | [phone] | | | | | | | | +--------+---------+ + + + documented as of this encounter Visit Diagnoses Not on filedocumented in this encounter"
--- OUTSIDE RECORDS SUMMARY | ~2019-02-11 | XMS | Encounter Summary ---
Demographics + + + | Address | [address] | | | [place] [address] | + + + | Home Phone [...] + | Roxana Bo | ECON | [address] | | | | | [place] | | | | | [address] | | + + + + + Care Team Providers + +------+ + | Care Residential Remodeling Subcontractor Name | Role | Phone | + [...] | 2017 | on | Center at [facility] [address] | [address] | | | | | [address] | [place], [place] | | | | | Mailcode: OC8D | [address] | | | | | [facility] | [phone] | | | | | and Healing, | | | | | | [address] | | | | | | [place], [place] | | | | | | [address] | | | | | | [phone] | | | +--------+ + + + [...] [address] | | | | | | [place], [place] | | | | | | [address] | | | | | | [phone] | | | | | | | [...] [address] | [place], [place] | [phone] | | [place] | | | | [...] + + | [facility] - | [address] | [place] | [phone] | | [place] | | | | + + + + + documented in this encounter Visit Diagnoses Not on filedocumented in this encounter"
--- OUTSIDE RECORDS SUMMARY | ~2019-02-11 | XMS | Encounter Summary ---
Demographics + + + | Address | [address] | | | [place] [address] | + + + | Home Phone [...] + | Roxana Bo | ECON | [address] | | | | | [place] | | | | | [address] | | + + + + + Care Team Providers + +------+ + | Care Marine Safety Officer Name | Role | Phone | + +------+ + | Ventura Carrasquillo MD | PCP | | + +------+ + Reason for Visit + + + | Reason | Comments | + + + | Lab findings, | | | teaching, guidance, | | | and counseling | | + + + | Medication | | | management | | + + + Encounter Details +--------+ + + + + | Date | Type | Department | Care Team | Description | +--------+ + + + + | 12/03/ | Telephone | Digestive Health | Lake Dennis MD | Lab findings, | | 2010 | | [place] [address] [address] | [address] | teaching, guidance, | | | | [address] | [place], [place] | and counseling; | | | | Mailcode: OC8D | [address] | Medication | | | | [facility] | [phone] | management | | | | and Healing, | | | | | | [address] | | | | | | [facility] [place] | | | | | | [address] | | | | | | [phone] | | | +--------+ + + + [...] | | | | | | [place] | | | | | | [address] | | | | | | [phone] | | | | | | | | +--------+---------+ + + + documented as of this encounter Visit Diagnoses Not on filedocumented in this encounter"
--- OUTSIDE RECORDS SUMMARY | ~2019-02-11 | XMS | Encounter Summary ---
Demographics + + + | Address | [address] | | | [place] [address] | + + + | Home Phone | | + + + | Preferred Language | Unknown | + + + | Marital Status | | + + + | Anabaptist Affiliation | CAT | + + + [...] + | Roxana Bo | ECON | [address] | | | | | [place] | | | | | [address] | | + + + + + Care Team Providers + +------+ + | Care Vice President Sales Name | Role | Phone | + [...] Results | | 2013 | Encounter | [place] at [facility] [address] | [address] | | | | | [address] | [place], [place] | | | | | Mailcode: OC8D | [address] | | | | | [facility] | [phone] | | | | | and Healing, | | | | | | [address] | | | | | | [place], [place] | | | | | | [address] | | | | | | [phone] | | | +--------+ + + + [...] | | | | | | [place], [place] | | | | | | [address] | | | | | | [phone] | | | | | | | | +--------+---------+ + + + documented as of this encounter Visit Diagnoses Not on filedocumented in this encounter"
--- OUTSIDE RECORDS SUMMARY | ~2019-02-11 | XMS | Encounter Summary ---
Demographics + + + | Address | [address] | | | [place] [address] | + + + | Home Phone [...] + | Roxana Bo | ECON | [address] | | | | | [place] | | | | | [address] | | + + + + + Care Team Providers + +------+ + | Care Bee Worker Name | Role | Phone | + +------+ + | No Pcp Per Patient | PCP | Unavailable | + +------+ + Reason for Visit + + + | Reason | Comments | + + + | Blood Test Results | Outside labs from [facility] 01/03/16. | + + + Encounter Details +--------+ + + + + | Date | Type | Department | Care Team | Description | +--------+ + + + + | 01/15/ | Documentati | Digestive Health | Lake Dennis MD | Blood Test Results | | 2016 | on | [place] at [facility] [address] | [address] | (Outside labs from | | | | [address] | [place], [place] | [facility] 01/03/16.) | | | | Mailcode: OC8D | [address] | | | | | [facility] | [phone] | | | | | and Healing, | | | | | | [address] | | | | | | [place], [place] | | | | | | [address] | | | | | | [phone] | | | +--------+ + + + [...] [address] | | | | | | [place], [place] | | | | | | [address] | | | | | | [phone] | | | | | | | | +--------+---------+ + + + documented as of this encounter Procedures + +--------+ + + + | Procedure Name | Priori | Date/Time | Associated Diagnosis | Comments | | | ty | | | | + +--------+ + + + | CBC, WITH | Routin | 01/03/2016 | | Results for this | | DIFFERENTIAL | e | 9:00 AM | | procedure are in the | | | | PDT | | results section. | + +--------+ + + + | LIVER SET | Routin | 01/03/2016 | | Results for this | | (AST,ALT,BILI | e | 9:00 AM | | procedure are in the | | TOTAL,BILI | | PDT | | results section. | | DIRECT,ALK | | | | | | PHOS,ALB,PROT TOTAL) | | | | | + +--------+ + + + documented in this encounter Results LIVER SET (AST,ALT,BILI TOTAL,BILI DIRECT,ALK PHOS,ALB,PROT TOTAL) (01/03/2016 9:00 AM PDT ) + +---------+ + + [...] + + + | ALK PHOS | 132 (H) | U/L | [facility] | | [...] [address] | [place] | [phone] | | [place] | | | | + + + + + CBC, WITH DIFFERENTIAL (01/03/2016 9:00 AM PDT) + +---------+ + + + | Component | Value | Ref Range | Performed | Pathologist | | | | | At | Signature | + +---------+ + + + | WHITE CELL | 4.2 (L) | K/cu mm | [facility] | | | COUNT | | | LAB - | | | | | | [place] | | + +---------+ + + + | HEMOGLOBIN | 14 | g/dL | [facility] | | | | | | LAB - | | | | | | [place] | | + +---------+ + + + | HEMATOCRIT | 43.5 | % | [facility] | | | | | | LAB - | | | | | | [place] | | + +---------+ + + + | PLATELET | 347 | K/cu mm | [facility] | | [address] | [place] | [phone] | | [place] | | | | + + + + + documented in this encounter Visit Diagnoses Not on filedocumented in this encounter"
--- OUTSIDE RECORDS SUMMARY | ~2019-02-11 | XMS | Encounter Summary ---
Demographics + + + | Address | [address] | | | [place] [address] | + + + | Home Phone [...] + | Roxana Bo | ECON | [address] | | | | | [place] | | | | | [address] | | + + + + + Care Team Providers + +------+ + | Care Cdl Bulk Driver Name | Role | Phone | [...] | | 2018 | | Center at [facility] [address] | [address] | Review (Lab 01/08/18.) | | | | [address] | [place], [place] | | | | | Mailcode: OC8D | [address] | | | | | [facility] | [phone] | | | | | and Healing, | | | | | | [address] | | | | | | [place], [place] | | | | | | [address] | | | | | | [phone] | | | +--------+ + + + [...] | | 2019 | Visit | | [address] | | | | | | [place], [place] | | | | | | [address] | | | | | | [phone] | | | | | | | | +--------+---------+ + + + documented as of this encounter Visit Diagnoses Not on filedocumented in this encounter"
--- OUTSIDE RECORDS SUMMARY | ~2019-02-11 | XMS | Encounter Summary ---
Demographics + + + | Address | [address] | | | [place] [address] | + + + | Home Phone [...] + | Roxana Bo | ECON | [address] | | | | | [place] | | | | | [address] | | + + + + + Care Team Providers + +------+ + | Care Schedule Manager Name | Role | Phone | + +------+ + | Ventura Carrasquillo MD | PCP | | + +------+ + Reason for Visit +--------+ + | Reason | Comments | +--------+ + | Other | Lab questions | +--------+ + Encounter Details +--------+ + + + + | Date | Type | Department | Care Team | Description | +--------+ + + + + | 04/08/ | MyChart | Digestive Health | Lake Dennis MD | RE: Lab Test | | 2013 | Encounter | [place] at [facility] [address] | [address] | | | | | [address] | [place], [place] | | | | | Mailcode: OC8D | [address] | | | | | [facility] | [phone] | | | | | and Healing, | | | | | | [address] | | | | | | [place], [place] | | | | | | [address] | | | | | | [phone] | | | +--------+ + + + [...] [address] | | | | | | [place], [place] | | | | | | [address] | | | | | | [phone] | | | | | | | | +--------+---------+ + + + documented as of this encounter Procedures + +--------+ + + + | Procedure Name | Priori | Date/Time | Associated Diagnosis | Comments | | | ty | | | | + +--------+ + + + | COMPLETE METABOLIC | Routin | 04/07/2013 | | Results for this | | SET | e | 9:53 AM | | procedure are in the | | (NA,K,CL,CO2,BUN,CRE | | PST | | results section. | | AT,GLUC,CA,AST,ALT,B | | | | | | JONH TOTAL,ALK | | | | | | PHOS,ALB,PROT TOTAL) | | | | | + +--------+ + + + | CBC, WITH | Routin | 04/05/2013 | | Results for this | | DIFFERENTIAL | e | 9:53 AM | | procedure are in the | | | | PST | | results section. | + +--------+ + + + documented in this encounter Results COMPLETE METABOLIC SET (NA,K,CL,CO2,BUN,CREAT,GLUC,CA,AST,ALT,BILI TOTAL,ALK PHOS,ALB,PROT TOTAL) (04/07/2013 9:53 AM PST) + +---------+ + + + [...] +---------+ + + + | SODIUM, | 144 (H) | mmol/L | [facility] | | [address] | [place], [place] | [phone] | | [place] | | | | + + + + + CBC, WITH DIFFERENTIAL (04/05/2013 9:53 AM PST) + +-------+ + + + [...] +-------+ + + + | HEMOGLOBIN | 14.8 | g/dL | [facility] | | | | | | LAB - | | | | | | [place] | | + +-------+ + + + | HEMATOCRIT | 44.7 | % | [facility] | | | | | | LAB - | | | | | | [place] | | + +-------+ + + + | PLATELET | 341 | K/cu mm | [facility] | | [...] [address] | [place] | [phone] | | [place] | | | | + + + + + documented in this encounter Visit Diagnoses Not on filedocumented in this encounter"
--- OUTSIDE RECORDS SUMMARY | ~2019-02-11 | XMS | Encounter Summary ---
Demographics + + + | Address | [address] | | | [place] [address] | + + + | Home Phone [...] + | Roxana Bo | ECON | [address] | | | | | [place] | | | | | [address] | | + + + + + Care Team Providers + +------+ + | Care Rv Servicer Name | Role | Phone | + [...] Results | | 2015 | Encounter | [place] [address] [address] | [address] | | | | | [address] | [facility] [place] | | | | | Mailcode: OC8D | [address] | | | | | [facility] | [phone] | | | | | and Healing, | | | | | | [address] | | | | | | [place], [place] | | | | | | [address] | | | | | | [phone] | | | +--------+ + + + [...] [address] | | | | | | [place] | | | | | | [address] | | | | | | [phone] | | | | | | | | +--------+---------+ + + + documented as of this encounter Visit Diagnoses Not on filedocumented in this encounter"
--- OUTSIDE RECORDS SUMMARY | ~2019-02-11 | XMS | Encounter Summary ---
Demographics + + + | Address | [address] | | | [place] [address] | + + + | Home Phone [...] + | Roxana Bo | ECON | [address] | | | | | [place] | | | | | [address] | | + + + + + Care Team Providers + +------+ + | Care Wall Scraper Name | Role | Phone | + [...] | 2010 | on | Center at [facility] [address] | [address] | (10/04/2009) | | | | [address] | [place], [place] | | | | | Mailcode: OCLuba | [address] | | | | | [facility] | [phone] | | | | | and Healing, | | | | | | [address] | | | | | | [place], [place] | | | | | | [address] | | | | | | [phone] | | | +--------+ + + + [...] [address] | | | | | | [place], [place] | | | | | | [address] | | | | | | [phone] | | | | | | | [...] [address] | [place] [address] | | | [place] | [address] | [...] + + | HEMOGLOBIN | 14.8 | 12.1999 - 15 | [facility] | [...] [address] | [place] [address] | | | [place] | [address] | [...] | | | [place] | | + +---------+ + + + + + | Specimen | + + | Blood - Blood | + + + + + + + | Performing | Address | City/State/Zipcode | Phone Number | | Organization | | | | + + + + + | [facility] - | [address] | [place] [address] | | | [place] | [address] | | | + + + + + documented in this encounter Visit Diagnoses Not on filedocumented in this encounter"
--- OUTSIDE RECORDS SUMMARY | ~2019-02-11 | XMS | Encounter Summary ---
Demographics + + + | Address | [address] | | | [place] [address] | + + + | Home Phone [...] + | Roxana Bo | ECON | [address] | | | | | [place] | | | | | [address] | | + + + + + Care Team Providers + +------+ + | Care Cad Designer Name | Role | Phone | + +------+ + | Ventura Carrasquillo MD | PCP | | + +------+ + Encounter Details +--------+ + + + + | Date | Type | Department | Care Team | Description | +--------+ + + + + | 02/19/ | Mobile Lounge Driver Or Operator | Digestive Health | Lake Dennis MD | Nonspecific Abnormal | | 2008 | | Center at [facility] [address] | [address] | Results of Liver | | | | [address] | [place], [place] | Function Study | | | | Mailcode: OC8D | [address] | (Primary Dx) | | | | [facility] | [phone] | | | | | and [place], | | | | | | [address] | | | | | | [place], [place] | | | | | | [address] | | | | | | [phone] | | | +--------+ + + + [...] [address] | | | | | | [place], [place] | | | | | | [address] | | | | | | [phone] | | | | | | | [...]
--- OUTSIDE RECORDS SUMMARY | ~2019-02-11 | XMS | Encounter Summary ---
Demographics + + + | Address | [address] | | | [place] [address] | + + + | Home Phone | | + + + | Preferred Language | Unknown | + + + | Marital Status | | + + + | Synagogue Affiliation | CAT | + + + [...] + | Roxana Bo | ECON | [address] | | | | | [place] | | | | | [address] | | + + + + + Care Team Providers + +------+ + | Care Soaking Tank Worker Name | Role | Phone | + +------+ + | Ventura Carrasquillo MD | PCP | | + +------+ + Encounter Details +--------+ + + + + | Date | Type | Department | Care Team | Description | +--------+ + + + + | 08/19/ | Telephone | Digestive Health | Lake Dennis MD | | | 2010 | | [place] [address] | [address] | | | | | [address] | [place], [place] | | | | | Mailcode: OC8D | [address] | | | | | [place] for [facility] | [phone] | | | | | and Healing, | | | | | | [address] | | | | | | [place], [place] | | | | | | [address] | | | | | | [phone] | | | +--------+ + + + [...] [address] | | | | | | [place], [place] | | | | | | [address] | | | | | | [phone] | | | | | | | | +--------+---------+ + + + documented as of this encounter Visit Diagnoses Not on filedocumented in this encounter"
--- OUTSIDE RECORDS SUMMARY | ~2019-02-11 | XMS | Encounter Summary ---
Demographics + + + | Address | [address] | | | [place] [address] | + + + | Home Phone [...] + | Roxana Bo | ECON | [address] | | | | | [place] | | | | | [address] | | + + + + + Care Team Providers + +------+ + | Care Wood Fuel Pelletizer Name | Role | Phone | + [...] | 2015 | on | Center at [facility] [address] | [address] | (Outside labs from | | | | [address] | [place], [place] | [facility] 10/02/14.) | | | | Mailcode: OC8D | [address] | | | | | [facility] | [phone] | | | | | and [place], | | | | | | [address] | | | | | | [place], [place] | | | | | | [address] | | | | | | [phone] | | | +--------+ + + + [...] Rogers | | | | | | [place], [place] | | | | | | [address] | | | | | | [phone] | | | | | | | [...] | [facility] [place] | | [place] [address] | | | [place] | | | [...] | [facility] | | [place] [address] | | | [place] | | | | + +---------+ + + documented in this encounter Visit Diagnoses Not on filedocumented in this encounter"
--- OUTSIDE RECORDS SUMMARY | ~2019-02-11 | XMS | Encounter Summary ---
Demographics + + + | Address | [address] | | | [place] [address] | + + + | Home Phone | | + + + | Preferred Language | Unknown | + + + | Marital Status | | + + + | Yazdanism Affiliation | CAT | + + + | Race | White | + + + | Ethnic Group | Not or | + + + Author + + + | Author | [facility] | + + + | Organization | [facility] | + + + | Address | Unknown | + + + | Phone | Unavailable | + + + Support + + + + + | Name | Relationship | Address | Phone | + + + + + | Roxana Bo | ECON | [address] | | | | | [place] | | | | | [address] | | + + + + + Care Team Providers + +------+ + | Care Silk Opener Name | Role | Phone | + [...] | 2012 | Encounter | Center at [facility] [address] | [address] | | | | | [address] | [place], [place] | | | | | Mailcode: OC8D | [address] | | | | | [facility] | [phone] | | | | | and Healing, | | | | | | [address] | | | | | | [place], [place] | | | | | | [address] | | | | | | [phone] | | | +--------+ + + + [...] [address] | | | | | | [place], [place] | | | | | | [address] | | | | | | [phone] | | | | | | | [...] [address] | [place] | [phone] | | [place] | | | | [...] + + | [facility] - | [address] | [place], [place] | [phone] | | [place] | | | | + + + + + documented in this encounter Visit Diagnoses Not on filedocumented in this encounter"
--- OUTSIDE RECORDS SUMMARY | ~2019-02-11 | XMS | Encounter Summary ---
Demographics + + + | Address | [address] | | | [place] [address] | + + + | Home Phone [...] + | Roxana Bo | ECON | [address] | | | | | [place] | | | | | [address] | | + + + + + Care Team Providers + +------+ + | Care Wire Insulator Name | Role | Phone | + [...] Test | | 2014 | Encounter | [facility] at [facility] [address] | [address] | results | | | | [address] | [place], [place] | | | | | Mailcode: OC8D | [address] | | | | | [facility] | [phone] | | | | | and Healing, | | | | | | [address] | | | | | | [place], [place] | | | | | | [address] | | | | | | [phone] | | | +--------+ + + + [...] [address] | | | | | | [place], [place] | | | | | | [address] | | | | | | [phone] | | | | | | | [...] [address] | [place], [place] | [phone] | | [place] | | | | [...] [address] | [place], [place] | [phone] | | [place] | | | | + + + + + documented in this encounter Visit Diagnoses Not on filedocumented in this encounter"
--- OUTSIDE RECORDS SUMMARY | ~2019-02-11 | XMS | Encounter Summary ---
Demographics + + + | Address | [address] | | | [place] [address] | + + + | Home Phone [...] + | Roxana Bo | ECON | [address] | | | | | [place] | | | | | [address] | | + + + + + Care Team Providers + +------+ + | Care Mechanical Cad Designer Name | Role | Phone [...] | | | Procedures | FAMILY | [place], [place] | | | | | CONSULT TO | MEDICINE | [address] | | | | | HEPATOLOGY | [address] | Phone: | | | | | liver bx | [address] | [phone] | | | | | | [place], | Fax: | | | | | | [place] [address] | [phone] | | | | | | Phone: | | | | | | | [phone] | | | | | | | Fax: | | | | | | | [phone] | | +--------+ + + + + + Encounter Details +--------+---------+ + + + | Date | Type | Department | Care Team | Description | +--------+---------+ + + + | 09/08/ | Office | Digestive Health | Lake Dennis MD | Autoimmune hepatitis | | 2009 | Visit | Center at [facility] [address] | [address] | (HCC); Primary | | | | [address] | [place], [place] | biliary cirrhosis | | | | Mailcode: OC8D | [id number] | (HCC) | | | | [facility] | [phone] | | | | | and Healing, | | | | | | [address] | | | | | | [place], [place] | | | | | | [address] | | | | | | [phone] | | | +--------+---------+ + + + [...] her LFTs are essentially normal. Plan: -outside manager financial services or PCP to check Vit A and [...] Rogers | | | | | | [place], [place] | | | | | | [address] | | | | | | [phone] | | | | | | | [...] [address] | [place] | [phone] | | [place] | | | | [...] [address] | [place], [place] | [phone] | | [place] | | | | [...] [address] | [place], [place] | [phone] | | [place] | | | | [...]
--- OUTSIDE RECORDS SUMMARY | ~2019-02-11 | XMS | Clinical Summary ---
Demographics + + + | Address | [address] | | | [place] [address] | + + + | Home Phone | | + + + | Preferred Language | Unknown | + + + | Marital Status | | + + + | Methodist Affiliation | CAT | + + + | Race | White | + + + | Ethnic Group | Not or | + + + Author + + + | Author | [facility] | + + + | Organization | [facility] | + + + | Address | Unknown | + + + | Phone | Unavailable | + + + Support + + + + + | Name | Relationship | Address | Phone | + + + + + | Roxana Bo | ECON | [address] | | | | | [place] | | | | | [address] | | + + + + + Care Team Providers + +------+ + | Care Quill Reamer Name | Role | Phone | + +------+ + | Ventura Carrasquillo MD | PCP | | + +------+ + Source Comments PAUL[facility] is fully live on both [facility] and [facility] InPatient.[facility] Allergies + + + + + [...] | | + + + +---------+------+------+-------+ | Bristow-3 Fatty | Take 2 Caps by mouth [...] tablet by | 90 | 3 | 11/0 | | Activ | | oral tablet | mouth once daily | tablet | | 5/20 | | e | | | after meals | | | 18 | | | + + + +---------+------+------+-------+ | URSODIOL 300 mg | take 3 capsules by | 270 | 3 | 11/0 | | Activ | | oral capsule | mouth at bedtime | capsule | | 5/20 | | e | | | | | | 18 | | | + + + +---------+------+------+-------+ [...] | 4 | + + + + Encounters +--------+ + + + + | Date | Type | Specialty | Care Team | Description | +--------+ + + + + | 02/04/ | Office | Hepatology | Lake Dennis MD | Autoimmune hepatitis | | 2019 | Visit | | | (HCC) (Primary Dx); | | | | | | Primary biliary | | | | | | cholangitis (HCC) | +--------+ + + + + | 02/04/ | Telephone | Hepatology | Lake Dennis MD | | | 2018 | | | | | +--------+ + + + + | 02/04/ | Travel | | | | | 2018 | | | | | +--------+ + + + + | 01/10/ | MyChart | Hepatology | Lake Dennis MD | RE: Bloodwork result | | 2018 | Encounter | | | | +--------+ + + + + | 01/05/ | Documentati | Hepatology | Lake Dennis MD | | | 2018 | on | | | | +--------+ + + + + | 01/05/ | Abstract | Hepatology | Lake Dennis MD | Medical Records | | 2019 | | | | Review | +--------+ + + + + from Last 3 Months Social History + +-------+ +--------+------+ | Tobacco [...] [place] | | | | | | [address] | | | | | | [phone] | | | | | | | [...] | | | | vaccination (#1) | 9 | | | + + + + + Procedures + +--------+ + + + | [...] section. | + +--------+ + + + from Last 3 Months Results CBC, WITH DIFFERENTIAL (01/04/2019 12:19 PM PDT) [...] - | [address] | [place], [place] | [phone] | | [place] | | | | [...] + + | [facility] - | [address] | [place] | [phone] | | [place] | | | | + + + + + from Last 3 Months Insurance + +--------+ +--------+ [...] | | | | | | | [address] | | + +--------+ +--------+ + +--------+ | [employer]ICARE | MODA | xxxxxxxxx | 12/03/19 | [phone] | [address] | [address] | | SUPPLEMENT | MEDICA | | 17-Pre | 4 | [id number] | | | | RE | | sent | | [place], | | | | SUPPLE | | | | [place] [address] | | | | MENT | | [...] Person | Self | [birth year] | [address] | | | al/Francisco | | 1950 | [phone] | [place] [address] | | | prasad | | | 1 (Home) | | + +--------+ +--------+ + + Advance Directives + + + + + | Type | Date Recorded | Patient | Explanation | | | | Teleservices Representative | | + + + + + | Advance | | | | | Directives and | | | | | Living Will | | | | + + + + + | Power of | | | | | Movie Theater Manager | | | | + + + + +
--- OUTSIDE RECORDS SUMMARY | ~2019-02-11 | XMS | Encounter Summary ---
Demographics + + + | Address | [address] | | | [place] [address] | + + + | Home Phone [...] + | Roxana Bo | ECON | [address] | | | | | [place] | | | | | [address] | | + + + + + Care Team Providers + +------+ + | Care Aircraft Inspector Name | Role | Phone | [...] | | | Procedures | FAMILY | [place], [place] | | | | | CONSULT TO | MEDICINE | [address] | | | | | HEPATOLOGY | [address] | Phone: | | | | | liver bx | [address] | [phone] | | | | | | [place], | Fax: | | | | | | [place] [address] | [phone] | | | | | | Phone: | | | | | | | [phone] | | | | | | | Fax: | | | | | | | [phone] | | +--------+ + + + + + Encounter Details +--------+---------+ + + + | Date | Type | Department | Care Team | Description | +--------+---------+ + + + | 03/28/ | Office | Digestive Health | Lake Ontiveros MD | Autoimmune hepatitis | | 2010 | Visit | Center at [facility] [address] | [address] | (HCC); Primary | | | | [address] | [place], [place] | biliary cirrhosis | | | | Mailcode: OC8D | [address] | (HCC) | | | | [facility] | [phone] | | | | | and Healing, | | | | | | [address] | | | | | | [place], [place] | | | | | | [address] | | | | | | [phone] | | | +--------+---------+ + + + [...] 1 Applicator to affected area once daily. Qsbfrwexggo-Nedkpgtym-Oqs C-Mn (GLUCOSAMINE CHONDROITIN MAXSTR) 500-400 mg Oral Capsule Take 2 Tabs by mouth once daily. jjxcphdvpppm-ztibvnd-lvciglx-folic acid chewable 200-0.4 mg Oral Tablet, Chewable Take 2 Tabs by mouth once daily. birhzvuhwsuf-ujnmezq-vdje-lutein (CENTRUM SILVER ULTRA WOMEN'S) Oral Tablet Take [...] day 2) CMP, CBC, plts, diff, INR l8ucjhaw 3) RTC in 6 months Counseling Time: [...] Rogers | | | | | | [place], [place] | | | | | | [address] | | | | | | [phone] | | | | | | | | +--------+---------+ + + + documented as of this encounter Visit Diagnoses + + | Diagnosis | + + | Autoimmune hepatitis (HCC) Autoimmune hepatitis | + + | Primary biliary cirrhosis (HCC) Biliary cirrhosis | + + documented in this encounter
--- OUTSIDE RECORDS SUMMARY | ~2019-02-11 | XMS | Encounter Summary ---
Demographics + + + | Address | [address] | | | [place] [address] | + + + | Home Phone [...] + | Roxana Bo | ECON | [address] | | | | | [place] | | | | | [address] | | + + + + + Care Team Providers + +------+ + | Care Pediatric Radiologist Name | Role | Phone | + +------+ + | Ventura Carrasquillo MD | PCP | | + +------+ + Reason for Visit + + + | Reason | Comments | + + + | Blood Test Results | [facility] 10/02/14 Lab Results [...] Test Results | | 2014 | | [place] [address] [address] | [address] | ([facility] | | | | [address] | [place], [place] | 10/02/14 Lab Results | | | | Mailcode: OC8D | [id number] | (AST, alk, | | | | [facility] | [phone] | bilirubin, protein, | | | | and Healing, | | albumin, CBC)) | | | | [address] | | | | | | [place], [place] | | | | | | [address] | | | | | | [phone] | | | +--------+ + + + [...] Rogers | | | | | | [place], [place] | | | | | | [address] | | | | | | [phone] | | | | | | | | +--------+---------+ + + + documented as of this encounter Visit Diagnoses Not on filedocumented in this encounter"
--- OUTSIDE RECORDS SUMMARY | ~2019-02-11 | XMS | Encounter Summary ---
Demographics + + + | Address | [address] | | | [place] [address] | + + + | Home Phone [...] + | Roxana Bo | ECON | [address] | | | | | [place] | | | | | [address] | | + + + + + Care Team Providers + +------+ + | Care Hose Seamer Name | Role | Phone | + [...] | | 2008 | | Center at [facility] [address] | [address] | teaching, guidance, | | | | [address] | [place], [place] | and counseling | | | | Mailcode: OC8D | [address] | | | | | [facility] | [phone] | | | | | and Healing, | | | | | | [address] | | | | | | [place], [place] | | | | | | [address] | | | | | | [phone] | | | +--------+ + + + [...] Rogers | | | | | | [place], [place] | | | | | | [address] | | | | | | [phone] | | | | | | | [...] + + | [facility] - | [address] | [place] | [phone] | | [place] | | | | [...] [address] | [place], [place] | [phone] | | [place] | | | | [...]
--- OUTSIDE RECORDS SUMMARY | ~2019-02-11 | XMS | Encounter Summary ---
Demographics + + + | Address | [address] | | | [place] [address] | + + + | Home Phone [...] + | Roxana Bo | ECON | [address] | | | | | [place] | | | | | [address] | | + + + + + Care Team Providers + +------+ + | Care Battery Stacker Name | Role | Phone | + +------+ + | Ventura Carrasquillo MD | PCP | | + +------+ + Encounter Details +--------+ + + + + | Date | Type | Department | Care Team | Description | +--------+ + + + + | 04/07/ | Abstract | Digestive Health | Lake Dennis MD | | | 2010 | | [place] [address] [address] | [address] | | | | | [address] | [place], [place] | | | | | Mailcode: OC8D | [address] | | | | | [facility] | [phone] | | | | | and Healing, | | | | | | [address] | | | | | | [place], [place] | | | | | | [address] | | | | | | [phone] | | | +--------+ + + + [...] | | | | | | [place] | | | | | | [address] | | | | | | [phone] | | | | | | | | +--------+---------+ + + + documented as of this encounter Visit Diagnoses Not on filedocumented in this encounter"
--- OUTSIDE RECORDS SUMMARY | ~2019-02-11 | XMS | Encounter Summary ---
Demographics + + + | Address | [address] | | | [place] [address] | + + + | Home Phone [...] + | Roxana Bo | ECON | [address] | | | | | [place] | | | | | [address] | | + + + + + Care Team Providers + +------+ + | Care Analysis Consultant Name | Role | Phone | [...] | 2013 | on | Center at [facility] [address] | [address] | (Out side labs from | | | | [address] | [place], [place] | [facility]. | | | | Mailcode: OC8D | [address] | 10/04/13.) | | | | [facility] | [phone] | | | | | and Healing, | | | | | | [address] | | | | | | [place], [place] | | | | | | [address] | | | | | | [phone] | | | +--------+ + + + [...] [address] | | | | | | [place], [place] | | | | | | [address] | | | | | | [phone] | | | | | | | [...] [address] | [place], [place] | [phone] | | [place] | | | | [...] + + | [facility] - | [address] | [place] | [phone] | | [place] | | | | + + + + + documented in this encounter Visit Diagnoses Not on filedocumented in this encounter"
--- OUTSIDE RECORDS SUMMARY | ~2019-02-11 | XMS | Encounter Summary ---
Demographics + + + | Address | [address] | | | [place] [address] | + + + | Home Phone [...] + | Roxana Bo | ECON | [address] | | | | | [place] | | | | | [address] | | + + + + + Care Team Providers + +------+ + | Care Manager Employment Name | Role | Phone | + +------+ + | Ventura Carrasquillo MD | PCP | | + +------+ + Reason for Visit + + + | Reason | Comments | + + + | Blood Test Results | Out side labs from [facility] 01/04/14. | + + + Encounter Details +--------+ + + + + | Date | Type | Department | Care Team | Description | +--------+ + + + + | 01/05/ | Documentati | Digestive Health | Lake Dennis MD | Blood Test Results | | 2013 | on | Center at [facility] [address] | [address] | (Out side labs from | | | | [address] | [place], [place] | [facility] | | | | Mailcode: OC8D | [address] | 01/04/14.) | | | | [facility] | [phone] | | | | | and Healing, | | | | | | [address] | | | | | | [place], [place] | | | | | | [address] | | | | | | [phone] | | | +--------+ + + + [...] [address] | | | | | | [place], [place] | | | | | | [address] | | | | | | [phone] | | | | | | | | +--------+---------+ + + + documented as of this encounter Procedures + +--------+ + + + | Procedure Name | Priori | Date/Time | Associated Diagnosis | Comments | | | ty | | | | + +--------+ + + + | CBC, WITH | Routin | 01/04/2014 | | Results for this | | DIFFERENTIAL | e | 9:45 AM | | procedure are in the | | | | PDT | | results section. | + +--------+ + + + | COMPLETE METABOLIC | Routin | 01/04/2014 | | Results for this | | SET | e | 9:45 AM | | procedure are in the | | (NA,K,CL,CO2,BUN,CRE | | PDT | | results section. | | AT,GLUC,CA,AST,ALT,B | | | | | | JONH TOTAL,ALK | | | | | | PHOS,ALB,PROT TOTAL) | | | | | + +--------+ + + + documented in this encounter Results COMPLETE METABOLIC SET (NA,K,CL,CO2,BUN,CREAT,GLUC,CA,AST,ALT,BILI TOTAL,ALK PHOS,ALB,PROT TOTAL) (01/04/2014 9:45 AM PDT) + +-------+ + + + | Component | Value | Ref Range | Performed | Pathologist | | | | | At | Signature | + +-------+ + + + | GLUCOSE, | 81 | mg/dL | NON [facility] | | | PLASMA | | | LAB | | | (LAB) | | | | | + +-------+ + + + | BUN, PLASMA | 15 | mg/dL | NON [facility] | | | (LAB) | | | LAB | | + +-------+ + + + | CREATININE | 0.77 | mg/dL | NON [facility] | | | PLASMA | | | LAB | | | (LAB) | | | | | + +-------+ + + + | ALBUMIN, | 3.6 | g/dL | NON [facility] | | | PLASMA | | | LAB | | | (LAB) | | | | | + +-------+ + + + | BILIRUBIN | 0.5 | Transcutaneous | NON [facility] | | | TOTAL | | Bilirubinometer | LAB | | + +-------+ + + + | ALK PHOS | 111 | U/L | NON [facility] | | | | | | LAB | | + +-------+ + + + | AST(SGOT) | 20 | U/L | NON [facility] | | | | | | LAB | | + +-------+ + + + | SODIUM, | 139 | mmol/L | NON [facility] | | [...] + +---------+ + + CBC, WITH DIFFERENTIAL (01/04/2014 9:45 AM PDT) + +-------+ + + + | Component | Value | Ref Range | Performed | Pathologist | | | | | At | Signature | + +-------+ + + + | WHITE CELL | 5.4 | K/cu mm | NON [facility] | | | COUNT | | | LAB | | + +-------+ + + + | HEMOGLOBIN | 14.2 | g/dL | NON [facility] | | | | | | LAB | | + +-------+ + + + | HEMATOCRIT | 42.4 | % | NON [facility] | | | | | | LAB | | + +-------+ + + + | PLATELET | 342 | K/cu mm | NON [facility] | [...]
--- OUTSIDE RECORDS SUMMARY | ~2019-02-11 | XMS | Encounter Summary ---
Demographics + + + | Address | [address] | | | [place] [address] | + + + | Home Phone [...] + | Roxana Bo | ECON | [address] | | | | | [place] | | | | | [address] | | + + + + + Care Team Providers + +------+ + | Care Hat Blocking Machine Operator Name | Role | Phone [...] | 2017 | Encounter | Center at [facility] [address] | [address] | Prescription Update | | | | [address] | [place], [place] | | | | | Mailcode: OC8D | [address] | | | | | [facility] | [phone] | | | | | and Healing, | | | | | | [address] | | | | | | [place], [place] | | | | | | [address] | | | | | | [phone] | | | +--------+ + + + [...] Rogers | | | | | | [place] | | | | | | [address] | | | | | | [phone] | | | | | | | | +--------+---------+ + + + documented as of this encounter Visit Diagnoses Not on filedocumented in this encounter"
--- OUTSIDE RECORDS SUMMARY | ~2019-02-11 | XMS | Encounter Summary ---
Demographics + + + | Address | [address] | | | [place] [address] | + + + | Home Phone [...] Author + + + | Author | [facility] | + + + | Organization | [facility] | + + + | Address | Unknown | + + + | Phone | Unavailable | + + + Support + + + + + | Name | Relationship | Address | Phone | + + + + + | Roxana Bo | ECON | [address] | | | | | [place] | | | | | [address] | | + + + + + Care Team Providers + +------+ + | Care Channeler Runner Name | Role | Phone | [...] | 2017 | on | Center at [facility] [address] | [address] | (Outside labs from | | | | [address] | [place], [place] | [facility] 09/08/16) | | | | Mailcode: [id number] | [id number] | | | | | [facility] | [phone] | | | | | and [place], | | | | | | [address] | | | | | | [place], [place] | | | | | | [address] | | | | | | [phone] | | | +--------+ + + + [...] | 2019 | Visit | | [address] | | | | | | [place], [place] | | | | | | [address] | | | | | | [phone] | | | | | | | [...] + + | [facility] - | [address] | [place] | [phone] | | VIVEK | | | | [...] + + | [facility] - | [address] | [place] | [phone] | | VIVEK | | | | + + + + + documented in this encounter Visit Diagnoses Not on filedocumented in this encounter"
--- OUTSIDE RECORDS SUMMARY | ~2019-02-11 | XMS | Encounter Summary ---
Demographics + + + | Address | [address] | | | [place] [address] | + + + | Home Phone [...] + | Roxana Bo | ECON | [address] | | | | | [place] | | | | | [address] | | + + + + + Care Team Providers + +------+ + | Care Motor Scooter Repairer Name | Role | Phone | [...] Medication | | 2019 | Encounter | [place] at [facility] [address] | [address] | | | | | [address] | [place], [place] | | | | | Mailcode: OC8D | [address] | | | | | [facility] | [phone] | | | | | and Healing, | | | | | | [address] | | | | | | [place], [place] | | | | | | [address] | | | | | | [phone] | | | +--------+ + + + [...] | | | | | [place], [place] | | | | | | [address] | | | | | | [phone] | | | | | | | | +--------+---------+ + + + documented as of this encounter Visit Diagnoses Not on filedocumented in this encounter"
--- OUTSIDE RECORDS SUMMARY | ~2019-02-11 | XMS | Encounter Summary ---
Demographics + + + | Address | [address] | | | [place] [address] | + + + | Home Phone [...] + | Roxana Bo | ECON | [address] | | | | | [place] | | | | | [address] | | + + + + + Care Team Providers + +------+ + | Care Marine Drafter Name | Role | Phone | + +------+ + | Ventura Carrasquillo MD | PCP | | + +------+ + Encounter Details +--------+ + + + + | Date | Type | Department | Care Team | Description | +--------+ + + + + | 01/20/ | Abstract | Digestive Health | Lake Dennis MD | | | 2011 | | [place] [address] [address] | [address] | | | | | [address] | [place], [place] | | | | | Mailcode: OC8D | [address] | | | | | [facility] | [phone] | | | | | and Healing, | | | | | | [address] | | | | | | [place], [place] | | | | | | [address] | | | | | | [phone] | | | +--------+ + + + [...] Rogers | | | | | | [place] | | | | | | [address] | | | | | | [phone] | | | | | | | | +--------+---------+ + + + documented as of this encounter Visit Diagnoses Not on filedocumented in this encounter"
--- OUTSIDE RECORDS SUMMARY | ~2019-02-11 | XMS | Encounter Summary ---
Demographics + + + | Address | [address] | | | [place] [address] | + + + | Home Phone [...] + | Roxana Bo | ECON | [address] | | | | | [place] | | | | | [address] | | + + + + + Care Team Providers + +------+ + | Care Dental Secretary Name | Role | Phone | + [...] | 2016 | on | Center at [facility] [address]85 | [address] | (Outside labs from | | | | [address] | [place], [place] | [facility] 05/07/15.) | | | | Mailcode: OC8D | [address] | | | | | [facility] | [phone] | | | | | and Healing, | | | | | | [address] | | | | | | [place], [place] | | | | | | [address] | | | | | | [phone] | | | +--------+ + + + [...] Rogers | | | | | | [place], [place] | | | | | | [address] | | | | | | [phone] | | | | | | | [...] [address] | [place] | [phone] | | [place] | | | | [...] + + | [facility] - | [address] | [place] | [phone] | | [place] | | | | + + + + + documented in this encounter Visit Diagnoses Not on filedocumented in this encounter"
--- OUTSIDE RECORDS SUMMARY | ~2019-02-11 | XMS | Encounter Summary ---
Demographics + + + | Address | [address] | | | [place] [address] | + + + | Home Phone [...] + | Roxana Bo | ECON | [address] | | | | | [place] | | | | | [address] | | + + + + + Care Team Providers + +------+ + | Care Indoor Landscaper/Gardener Name | Role | Phone | + [...] | | | | | | e [address] | | | | | | | [address] | | | | | | | [facility] [address] | | | | | | | [facility] | | | | | | | Hospital | | | | | | | [place], [place] | | | | | | | [address] | | | | | | | Phone: | | | | | | | [phone] | | | | | | | Fax: | | | | | | | [phone] | +--------+--------+ + + + + Encounter Details +--------+ + + + + | Date | Type | Department | Care Team | Description | +--------+ + + + + | 02/20/ | Hospital | [facility] [address] | Lake Dennis MD | | | 2008 | Encounter | [address] | [address] | | | | | [address] [facility] | [place], [place] | | | | | [place], [place] | [address] | | | | | [address] | [phone] | | | | | [phone] | | | | | | | [...] | | | | | | [place], [place] | | | | | | [address] | | | | | | [phone] | | | | | | | [...] OF | [address] | [place] [address] | | | PATHOLOGY | [address] [...] | + + + + + | [facility] DEPARTMENT OF | [address] | [place] [address] | | | PATHOLOGY | [address] [...] [facility] | | | PATHOLOGY | Liver [place] | | DEPARTMENT | | | | Biopsy Final | | OF | | | | Pathologic | | PATHOLOGY | | | | Diagnosis:Liver, northway, | | | | | | biopsy:- [...] | + + + + + | [facility] | [address] | [place] [address] | | | PATHOLOGY | [address] | | | + + + + + documented in this encounter Visit Diagnoses Not on filedocumented in this encounter
--- OUTSIDE RECORDS SUMMARY | ~2019-02-11 | XMS | Encounter Summary ---
Demographics + + + | Address | [address] | | | [place] [address] | + + + | Home Phone [...] + | Roxana Bo | ECON | [address] | | | | | [place] | | | | | [address] | | + + + + + Care Team Providers + +------+ + | Care Paper Reel Operator Name | Role | Phone | [...] | 2010 | on | Center at [facility] [address] | [address] | (01/02/2011) | | | | [address] | [place], [place] | | | | | Mailcode: OCLuba | [address] | | | | | [facility] | [phone] | | | | | and Healing, | | | | | | [address] | | | | | | [place], [place] | | | | | | [address] | | | | | | [phone] | | | +--------+ + + + [...] Rogers | | | | | | [place], [place] | | | | | | [address] | | | | | | [phone] | | | | | | | [...] [address] | [place] [address] | | | [place] | [address] | [...] [address] | [place] [address] | | | [place] | 120 | | | + + + + + documented in this encounter Visit Diagnoses Not on filedocumented in this encounter"
--- OUTSIDE RECORDS SUMMARY | ~2019-02-11 | XMS | Encounter Summary ---
Demographics + + + | Address | [address] | | | [place] [address] | + + + | Home Phone [...] + | Roxana Bo | ECON | [address] | | | | | [place] | | | | | [address] | | + + + + + Care Team Providers + +------+ + | Care Study Lead Name | Role | Phone | + [...] | 2019 | Encounter | Center at [facility] [address] | [address] | Results | | | | [address] | [place], [place] | | | | | Mailcode: OC8D | [address] | | | | | [place] | [phone] | | | | | and Healing, | | | | | | [address] | | | | | | [place], [place] | | | | | | [address] | | | | | | [phone] | | | +--------+ + + + [...] Rogers | | | | | | [place], [place] | | | | | | [address] | | | | | | [phone] | | | | | | | [...] + + | [facility] - | [address] | [place] | [phone] | | [place] | | | | [...] + + | [facility] - | [address] | [place], [place] | [phone] | | [place] | | | | + + + + + documented in this encounter Visit Diagnoses Not on filedocumented in this encounter"
--- OUTSIDE RECORDS SUMMARY | ~2019-02-11 | XMS | Encounter Summary ---
Demographics + + + | Address | [address] | | | [place] [address] | + + + | Home Phone [...] + | Roxana Bo | ECON | [address] | | | | | [place] | | | | | [address] | | + + + + + Care Team Providers + +------+ + | Care Apparel Embroidery Digitizer Name | Role | Phone | + [...] Test Results | | 2017 | | [place] [address] [address] | [address] | | | | | [address] | [place], [place] | | | | | Mailcode: OC8D | [address] | | | | | [facility] | [phone] | | | | | and Healing, | | | | | | [address] | | | | | | [place], [place] | | | | | | [address] | | | | | | [phone] | | | +--------+ + + + [...] - 05/06/2016 9:17 AM PST[facility] [place] [address] [place] [address] #[id number] signed by Umesh Horowitz MA at 07/09/2016 [...] [place] | | | | | | [address] | | | | | | [phone] | | | | | | | [...] [address] | [place] [address] | | | [place] | 120 | [...] | [facility] - | [address] [facility] [address] | [place] [address] | | | [place] | 120 | | | + + + + + documented in this encounter Visit Diagnoses Not on filedocumented in this encounter"
--- OUTSIDE RECORDS SUMMARY | ~2019-02-11 | XMS | Encounter Summary ---
Demographics + + + | Address | [address] | | | [place] [address] | + + + | Home Phone [...] + | Roxana Bo | ECON | [address] | | | | | [place] | | | | | [address] | | + + + + + Care Team Providers + +------+ + | Care Wardrobe Manager Name | Role | Phone | [...] Refill Request | | 2013 | | [place] [address] [address] | [address] | (URSODIOL) | | | | [address] | [place], [place] | | | | | Mailcode: OC8D | [address] | | | | | [facility] | [phone] | | | | | and Healing, | | | | | | Building [address] | | | | | | [place], [place] | | | | | | [address] | | | | | | [phone] | | | +--------+--------+ + + + [...] | | | | | | [place], [place] | | | | | | [address] | | | | | | [phone] | | | | | | | | +--------+---------+ + + + documented as of this encounter Visit Diagnoses Not on filedocumented in this encounter"
--- OUTSIDE RECORDS SUMMARY | ~2019-02-11 | XMS | Encounter Summary ---
Demographics + + + | Address | [address] | | | [place] [address] | + + + | Home Phone [...] [place] | | | | | [address] | | + + + + + Care Team Providers + +------+ + | Care Director Speech And Hearing Name | Role | Phone | + [...] | | 2018 | | Center at [facility] [address] | [address] | (Ursodiol and | | | | [address] | [place], [place] | Azathioprine) | | | | Mailcode: OC8D | [address] | | | | | [facility] | [phone] | | | | | and Healing, | | | | | | [address] | | | | | | [place], [place] | | | | | | [address] | | | | | | [phone] | | | +--------+--------+ + + + [...] Rogers | | | | | | [place], [place] | | | | | | [address] | | | | | | [phone] | | | | | | | | +--------+---------+ + + + documented as of this encounter Visit Diagnoses Not on filedocumented in this encounter"
--- OUTSIDE RECORDS SUMMARY | ~2019-02-11 | XMS | Encounter Summary ---
Demographics + + + | Address | [address] | | | [place] [address] | + + + | Home Phone [...] + | Roxana Bo | ECON | [address] | | | | | [place] | | | | | [address] | | + + + + + Care Team Providers + +------+ + | Care Surveillance Investigator Name | Role | Phone | + +------+ + | No Pcp Per Patient | PCP | Unavailable | + +------+ + Reason for Visit + + + | Reason | Comments | + + + | Blood Test Results | [facility] 05/07/15 Lab Results (CBC, AST..) | + + + Encounter Details +--------+ + + + + | Date | Type | Department | Care Team | Description | +--------+ + + + + | 05/23/ | Abstract | Digestive Health | Lake Dennis MD | Blood Test Results | | 2016 | | [place] [address] [address] | [address] | ([facility] | | | | [address] | [place], [place] | 05/07/15 Lab Results | | | | Mailcode: OC8D | [address] | (CBC, AST..)) | | | | [facility] | [phone] | | | | | and Healing, | | | | | | Building [address] | | | | | | [place], [place] | | | | | | [address] | | | | | | [phone] | | | +--------+ + + + [...] Rogers | | | | | | [place], [place] | | | | | | [address] | | | | | | [phone] | | | | | | | | +--------+---------+ + + + documented as of this encounter Visit Diagnoses Not on filedocumented in this encounter"
--- OUTSIDE RECORDS SUMMARY | ~2019-02-11 | XMS | Encounter Summary ---
Demographics + + + | Address | [address] | | | [place] [address] | + + + | Home Phone [...] + | Roxana Bo | ECON | [address] | | | | | [place] | | | | | [address] | | + + + + + Care Team Providers + +------+ + | Care Whipped Topping Mixer Name | Role | Phone | [...] Lab findings, | | 2008 | | [place] [address] [address] | [address] | teaching, guidance, | | | | [address] | [place], [place] | and counseling; | | | | Mailcode: OC8D | [address] | Medication | | | | [facility] | [phone] | management | | | | and Healing, | | | | | | [address] | | | | | | [facility] [place] | | | | | | [address] | | | | | | [phone] | | | +--------+ + + + [...] Rogers | | | | | | [place] | | | | | | [address] | | | | | | [phone] | | | | | | | | +--------+---------+ + + + documented as of this encounter Visit Diagnoses Not on filedocumented in this encounter"
--- OUTSIDE RECORDS SUMMARY | ~2019-02-11 | XMS | Encounter Summary ---
Demographics + + + | Address | [address] | | | [place] [address] | + + + | Home Phone [...] + | Roxana Bo | ECON | [address] | | | | | [place] | | | | | [address] | | + + + + + Care Team Providers + +------+ + | Care Entry Writer Name | Role | Phone | [...] Medication | | 2019 | Encounter | [place] at [facility] [address] | [address] | | | | | [address] | [place], [place] | | | | | Mailcode: OC8D | [address] | | | | | [facility] | [phone] | | | | | and Healing, | | | | | | [address] | | | | | | [place], [place] | | | | | | [address] | | | | | | [phone] | | | +--------+ + + + [...] Rogers | | | | | | [place], [place] | | | | | | [address] | | | | | | [phone] | | | | | | | | +--------+---------+ + + + documented as of this encounter Visit Diagnoses Not on filedocumented in this encounter"
--- OUTSIDE RECORDS SUMMARY | ~2019-02-11 | XMS | Encounter Summary ---
Demographics + + + | Address | [address] | | | [place] [address] | + + + | Home Phone [...] + | Roxana Bo | ECON | [address] | | | | | [place] | | | | | [address] | | + + + + + Care Team Providers + +------+ + | Care Can Closing Machine Operator Name | Role | Phone [...] Results | | 2015 | Encounter | [place] [address] [address] | [address] | | | | | [address] | [facility] [place] | | | | | Mailcode: OC8D | [address] | | | | | [place] [facility] | [phone] | | | | | and Healing, | | | | | | [address] | | | | | | [place], [place] | | | | | | [address] | | | | | | [phone] | | | +--------+ + + + [...] Rogers | | | | | | [place] | | | | | | [address] | | | | | | [phone] | | | | | | | | +--------+---------+ + + + documented as of this encounter Visit Diagnoses Not on filedocumented in this encounter"
--- OUTSIDE RECORDS SUMMARY | ~2019-02-11 | XMS | Encounter Summary ---
Demographics + + + | Address | [address] | | | [place] [address] | + + + | Home Phone [...] + | Roxana Bo | ECON | [address] | | | | | [place] | | | | | [address] | | + + + + + Care Team Providers + +------+ + | Care Mva Reactor Operator Name | Role | Phone | [...] | 2010 | on | Center at [facility] [address]85 | [address] | (04/03/2011) | | | | [address] | [place], [place] | | | | | Mailcode: OC8Luba | [address] | | | | | [facility] | [phone] | | | | | and Healing, | | | | | | [address] | | | | | | [place], [place] | | | | | | [address] | | | | | | [phone] | | | +--------+ + + + [...] Rogers | | | | | | [place], [place] | | | | | | [address] | | | | | | [phone] | | | | | | | [...] [address] | [place] [address] | | | [place] | [address] | [address] | [place] [address] | | | [place] | 120 | [...] [address] | [place] [address] | | | [place] | 120 | | | + + + + + documented in this encounter Visit Diagnoses Not on filedocumented in this encounter"
--- OUTSIDE RECORDS SUMMARY | ~2019-02-11 | XMS | Encounter Summary ---
Demographics + + + | Address | [address] | | | [place] [address] | + + + | Home Phone [...] + | Roxana Bo | ECON | [address] | | | | | [place] | | | | | [address] | | + + + + + Care Team Providers + +------+ + | Care Bottom Bleacher Name | Role | Phone | + +------+ + | Ventura Carrasquillo MD | PCP | | + +------+ + Encounter Details +--------+ + + + + | Date | Type | Department | Care Team | Description | +--------+ + + + + | 10/12/ | Abstract | Digestive Health | Lake Dennis MD | | | 2011 | | [place] [address] [address] | [address] | | | | | [address] | [place], [place] | | | | | Mailcode: OC8D | [address] | | | | | [facility] | [phone] | | | | | and Healing, | | | | | | [address] | | | | | | [place], [place] | | | | | | [address] | | | | | | [phone] | | | +--------+ + + + [...] Rogers | | | | | | [place] | | | | | | [address] | | | | | | [phone] | | | | | | | | +--------+---------+ + + + documented as of this encounter Visit Diagnoses Not on filedocumented in this encounter"
--- OUTSIDE RECORDS SUMMARY | ~2019-02-11 | XMS | Encounter Summary ---
Demographics + + + | Address | [address] | | | [place] [address] | + + + | Home Phone [...] + | Roxana Bo | ECON | [address] | | | | | [place] | | | | | [address] | | + + + + + Care Team Providers + +------+ + | Care Executive Manager Name | Role | Phone | [...] | Medication | | 2010 | | [place] [address] [address] | [address] | management | | | | [address] | [place], [place] | | | | | Mailcode: OC8D | [address] | | | | | [facility] | [phone] | | | | | and Healing, | | | | | | [address] | | | | | | [place], [place] | | | | | | [address] | | | | | | [phone] | | | +--------+ + + + [...] Rogers | | | | | | [place], [place] | | | | | | [address] | | | | | | [phone] | | | | | | | | +--------+---------+ + + + documented as of this encounter Visit Diagnoses Not on filedocumented in this encounter"
--- OUTSIDE RECORDS SUMMARY | ~2019-02-11 | XMS | Encounter Summary ---
Demographics + + + | Address | [address] | | | [place] [address] | + + + | Home Phone [...] + | Roxana Bo | ECON | [address] | | | | | [place] | | | | | [address] | | + + + + + Care Team Providers + +------+ + | Care Soil Fertility Specialist Name | Role | Phone | [...] Test Results | | 2018 | | [place] [address] [address] | [address] | | | | | [address] | [place], [place] | | | | | Mailcode: OC8D | [address] | | | | | [facility] | [phone] | | | | | and Healing, | | | | | | [address] | | | | | | [place], [place] | | | | | | [address] | | | | | | [phone] | | | +--------+ + + + [...] Rogers | | | | | | [place], [place] | | | | | | [address] | | | | | | [phone] | | | | | | | | +--------+---------+ + + + documented as of this encounter Visit Diagnoses Not on filedocumented in this encounter"
--- OUTSIDE RECORDS SUMMARY | ~2019-02-11 | XMS | Encounter Summary ---
Demographics + + + | Address | [address] | | | [place] [address] | + + + | Home Phone [...] + | Roxana Bo | ECON | [address] | | | | | [place] | | | | | [address] | | + + + + + Care Team Providers + +------+ + | Care Home Health Care Coordinator Name | Role | Phone | [...] | 2013 | Encounter | Center at [facility] [address] | [address] | | | | | [address] | [place], [place] | | | | | Mailcode: OC8D | [address] | | | | | [place] [facility] | [phone] | | | | | and Healing, | | | | | | [address] | | | | | | [place], [place] | | | | | | [address] | | | | | | [phone] | | | +--------+ + + + [...] [place] | | | | | | [address] | | | | | | [phone] | | | | | | | | +--------+---------+ + + + documented as of this encounter Visit Diagnoses Not on filedocumented in this encounter"
--- OUTSIDE RECORDS SUMMARY | ~2019-02-11 | XMS | Encounter Summary ---
Demographics + + + | Address | [address] | | | [place] [address] | + + + | Home Phone | | + + + | Preferred Language | Unknown | + + + | Marital Status | | + + + | Mormonism Affiliation | CAT | + + + [...] + | Roxana Bo | ECON | [address] | | | | | [place] | | | | | [address] | | + + + + + Care Team Providers + +------+ + | Care Pcts Name | Role | Phone | + [...] Test Results | | 2016 | | [place] at [facility] [address] | [address] | | | | | [address] | [place], [place] | | | | | Mailcode: OC8D | [address] | | | | | [facility] | [phone] | | | | | and Healing, | | | | | | [address] | | | | | | [place], [place] | | | | | | [address] | | | | | | [phone] | | | +--------+ + + + [...] Rogers | | | | | | [place], [place] | | | | | | [address] | | | | | | [phone] | | | | | | | | +--------+---------+ + + + documented as of this encounter Visit Diagnoses Not on filedocumented in this encounter"
--- OUTSIDE RECORDS SUMMARY | ~2019-02-11 | XMS | Encounter Summary ---
Demographics + + + | Address | [address] | | | [place] [address] | + + + | Home Phone [...] + | Roxana Bo | ECON | [address] | | | | | [place] | | | | | [address] | | + + + + + Care Team Providers + +------+ + | Care Pool Lifeguard Name | Role | Phone | + [...] | | 2018 | | Center at [facility] [address] | [address] | (Ursodiol and | | | | [address] | [place], [place] | Azathioprine) | | | | Mailcode: OC8D | [address] | | | | | [facility] | [phone] | | | | | and Healing, | | | | | | [address] | | | | | | [place], [place] | | | | | | [address] | | | | | | [phone] | | | +--------+--------+ + + + [...] Rogers | | | | | | [place], [place] | | | | | | [address] | | | | | | [phone] | | | | | | | | +--------+---------+ + + + documented as of this encounter Visit Diagnoses Not on filedocumented in this encounter"
--- OUTSIDE RECORDS SUMMARY | ~2019-02-11 | XMS | Encounter Summary ---
Demographics + + + | Address | [address] | | | [place] [address] | + + + | Home Phone [...] + | Roxana Bo | ECON | [address] | | | | | [place] | | | | | [address] | | + + + + + Care Team Providers + +------+ + | Care Biztalk Architect Name | Role | Phone | + [...] Encounter | Center at [facility] [address] | [address] | medication list | | | | [address] | [place], [place] | | | | | Mailcode: OC8D | [address] | | | | | [facility] | [phone] | | | | | and Healing, | | | | | | [address] | | | | | | [place], [place] | | | | | | [address] | | | | | | [phone] | | | +--------+ + + + [...] Rogers | | | | | | [place] | | | | | | [address] | | | | | | [phone] | | | | | | | | +--------+---------+ + + + documented as of this encounter Visit Diagnoses Not on filedocumented in this encounter"
--- OUTSIDE RECORDS SUMMARY | ~2019-02-11 | XMS | Encounter Summary ---
Demographics + + + | Address | [address] | | | [place] [address] | + + + | Home Phone [...] + | Roxana Bo | ECON | [address] | | | | | [place] | | | | | [address] | | + + + + + Care Team Providers + +------+ + | Care Agricultural Pilot Name | Role | Phone | + [...] | 2018 | on | Center at [facility] [address] | [address] | | | | | [address] | [place], [place] | | | | | Mailcode: OCD | [address] | | | | | [facility] | [phone] | | | | | [facility], | | | | | | [address] | | | | | | [place], [place] | | | | | | [address] | | | | | | [phone] | | | +--------+ + + + [...] [address] | | | | | | [place], [place] | | | | | | [address] | | | | | | [phone] | | | | | | | [...] [address] | [place] | [phone] | | [place] | | | | [...] [address] | [place] | [phone] | | [place] | | | | + + + + + documented in this encounter Visit Diagnoses Not on filedocumented in this encounter"
--- OUTSIDE RECORDS SUMMARY | ~2019-02-11 | XMS | Encounter Summary ---
Demographics + + + | Address | [address] | | | [place] [address] | + + + | Home Phone [...] + | Roxana Bo | ECON | [address] | | | | | [place] | | | | | [address] | | + + + + + Care Team Providers + +------+ + | Care Medical Transcription Supervisor Name | Role | Phone | [...] Bloodwork | | 2016 | Encounter | [place] [facility] [address] | [address] | results | | | | [address] | [place], [place] | | | | | Mailcode: OC8D | [address] | | | | | [facility] | [phone] | | | | | and Healing, | | | | | | [address] | | | | | | [facility] [place] | | | | | | [address] | | | | | | [phone] | | | +--------+ + + + [...] Rogers | | | | | | [place] | | | | | | [address] | | | | | | [phone] | | | | | | | | +--------+---------+ + + + documented as of this encounter Visit Diagnoses Not on filedocumented in this encounter"
--- OUTSIDE RECORDS SUMMARY | ~2019-02-11 | XMS | Encounter Summary ---
Demographics + + + | Address | [address] | | | [place] [address] | + + + | Home Phone [...] + | Roxana Bo | ECON | [address] | | | | | [place] | | | | | [address] | | + + + + + Care Team Providers + +------+ + | Care Respiratory Manager Name | Role | Phone | [...] Test Results | | 2016 | | [place] at [facility] [address] | [address] | | | | | [address] | [place], [place] | | | | | Mailcode: OC8D | [address] | | | | | [facility] | [phone] | | | | | and Healing, | | | | | | [address] | | | | | | [place], [place] | | | | | | [address] | | | | | | [phone] | | | +--------+ + + + [...] Rogers | | | | | | [place], [place] | | | | | | [address] | | | | | | [phone] | | | | | | | | +--------+---------+ + + + documented as of this encounter Visit Diagnoses Not on filedocumented in this encounter"
--- OUTSIDE RECORDS SUMMARY | ~2019-02-11 | XMS | Encounter Summary ---
Demographics + + + | Address | [address] | | | [place] [address] | + + + | Home Phone [...] + | Roxana Bo | ECON | [address] | | | | | [place] | | | | | [address] | | + + + + + Care Team Providers + +------+ + | Care Financial Assistant Name | Role | Phone | [...] Work | | 2019 | Encounter | [place] at [facility] [address] | [address] | | | | | [address] | [place], [place] | | | | | Mailcode: OC8D | [address] | | | | | [place] [facility] | [phone] | | | | | and Healing, | | | | | | [address] | | | | | | [place], [place] | | | | | | [address] | | | | | | [phone] | | | +--------+ + + + [...] Rogers | | | | | | [place], [place] | | | | | | [address] | | | | | | [phone] | | | | | | | [...]
--- OUTSIDE RECORDS SUMMARY | ~2019-02-11 | XMS | Encounter Summary ---
Demographics + + + | Address | [address] | | | [place] [address] | + + + | Home Phone [...] + | Roxana Bo | ECON | [address] | | | | | [place] | | | | | [address] | | + + + + + Care Team Providers + +------+ + | Care Traveling Phlebotomist Name | Role | Phone | + +------+ + | Ventura Carrasquillo MD | PCP | | + +------+ + Encounter Details +--------+ + + + + | Date | Type | Department | Care Team | Description | +--------+ + + + + | 03/25/ | Abstract | Digestive Health | Lake Dennis MD | | | 2010 | | [place] [address] [address] | [address] | | | | | [address] | [place], [place] | | | | | Mailcode: OC8D | [address] | | | | | [place] for [facility] | [phone] | | | | | and Healing, | | | | | | [address] | | | | | | [place], [place] | | | | | | [address] | | | | | | [phone] | | | +--------+ + + + [...] Rogers | | | | | | [place] | | | | | | [address] | | | | | | [phone] | | | | | | | | +--------+---------+ + + + documented as of this encounter Visit Diagnoses Not on filedocumented in this encounter"
--- OUTSIDE RECORDS SUMMARY | ~2019-02-11 | XMS | Encounter Summary ---
Demographics + + + | Address | [address] | | | [place] [address] | + + + | Home Phone [...] + | Roxana Bo | ECON | [address] | | | | | [place] | | | | | [address] | | + + + + + Care Team Providers + +------+ + | Care Embossing Press Operator Name | Role | Phone [...] Results | | 2013 | Encounter | [place] at [facility] [address] | [address] | | | | | [address] | [place], [place] | | | | | Mailcode: OC8D | [address] | | | | | [facility] | [phone] | | | | | and Healing, | | | | | | [address] | | | | | | [place], [place] | | | | | | [address] | | | | | | [phone] | | | +--------+ + + + [...] [place] | | | | | | [address] | | | | | | [phone] | | | | | | | | +--------+---------+ + + + documented as of this encounter Visit Diagnoses Not on filedocumented in this encounter"
--- OUTSIDE RECORDS SUMMARY | ~2019-02-11 | XMS | Encounter Summary ---
Demographics + + + | Address | [address] | | | [place] [address] | + + + | Home Phone [...] + | Roxana Bo | ECON | [address] | | | | | [place] | | | | | [address] | | + + + + + Care Team Providers + +------+ + | Care Electric Arc Welder Name | Role | Phone | [...] Test | | 2013 | Encounter | [place] at [facility] [address] | [address] | | | | | [address] | [place], [place] | | | | | Mailcode: OC8D | [address] | | | | | [facility] | [phone] | | | | | and Healing, | | | | | | [address] | | | | | | [place], [place] | | | | | | [address] | | | | | | [phone] | | | +--------+ + + + [...] Rogers | | | | | | [place], [place] | | | | | | [address] | | | | | | [phone] | | | | | | | [...] [address] | [place], [place] | [phone] | | [place] | | | | [...] [address] | [place] | [phone] | | [place] | | | | + + + + + documented in this encounter Visit Diagnoses Not on filedocumented in this encounter"
--- OUTSIDE RECORDS SUMMARY | ~2019-02-11 | XMS | Encounter Summary ---
Demographics + + + | Address | [address] | | | [place] [address] | + + + | Home Phone [...] + | Roxana Bo | ECON | [address] | | | | | [place] | | | | | [address] | | + + + + + Care Team Providers + +------+ + | Care Sheet Metal Duct Installer Apprentice Name | Role | Phone | + +------+ + | Ventura Carrasquillo MD | PCP | | + +------+ + Encounter Details +--------+ + + + + | Date | Type | Department | Care Team | Description | +--------+ + + + + | 01/02/ | Documentati | Digestive Health | Lake Dennis MD | | | 2009 | on | [place] at [facility] [address] | [address] | | | | | [address] | [place], [place] | | | | | Mailcode: OC8D | [address] | | | | | [facility] | [phone] | | | | | and Healing, | | | | | | [address] | | | | | | [place], [place] | | | | | | [address] | | | | | | [phone] | | | +--------+ + + + [...] [place] | | | | | | [address] | | | | | | [phone] | | | | | | | [...] [address] | [place], [place] | [phone] | | [place] | | | | + + + + + | [facility] - | | [place], [place] | | | [place] | | [...] [address] | [place], [place] | [phone] | | [place] | | | | + + + + + | [facility] - | | [place], [place] | | | [place] | | [...] [address] | [place] | [phone] | | [place] | | | | + + + + + | [facility] - | | [place], [place] | | | [place] | | | | + + + + + documented in this encounter Visit Diagnoses Not on filedocumented in this encounter"
--- OUTSIDE RECORDS SUMMARY | ~2019-02-11 | XMS | Encounter Summary ---
Demographics + + + | Address | [address] | | | [place] [address] | + + + | Home Phone [...] + | Roxana Bo | ECON | [address] | | | | | [place] | | | | | [address] | | + + + + + Care Team Providers + +------+ + | Care Learning Officer Name | Role | Phone | + +------+ + | Ventura Carrasquillo MD | PCP | | + +------+ + Encounter Details +--------+ + + + + | Date | Type | Department | Care Team | Description | +--------+ + + + + | 04/05/ | Document-Sc | UNKNOWN DEPARTMENT | Unknown . | | | 2012 | anned | [address] | | | | | | [address] | | | | | | [place], [place] | | | | | | [address] | | | +--------+ + + + [...] | | 2020 | Visit | | [address] | | | | | | [place], [place] | | | | | | [address] | | | | | | [phone] | | | | | | | | +--------+---------+ + + + documented as of this encounter Procedures + +--------+ + + + | Procedure Name | Priori | Date/Time | Associated Diagnosis | Comments | | | ty | | | | + +--------+ + + + | LAB REPORTS | | 04/05/2013 | | Results for this | | | | 12:00 AM | | procedure are in the | | | | PST | | results section. | + +--------+ + + + documented in this encounter Results LAB REPORTS (04/05/2013 12:00 AM PST) + + + | Narrative | Performed At | + + + | | | | | | + + + + + | Procedure Note | + + | Rg Richards - 04/15/2013 7:36 AM PST | + + documented in this encounter Visit Diagnoses Not on filedocumented in this encounter"
--- OUTSIDE RECORDS SUMMARY | ~2019-02-11 | XMS | Encounter Summary ---
Demographics + + + | Address | [address] | | | [place] [address] | + + + | Home Phone [...] + | Roxana Bo | ECON | [address] | | | | | [place] | | | | | [address] | | + + + + + Care Team Providers + +------+ + | Care Emt/Paramedic Name | Role | Phone | + +------+ + | Ventura Carrasquillo MD | PCP | | + +------+ + Encounter Details +--------+ + + + + | Date | Type | Department | Care Team | Description | +--------+ + + + + | 01/05/ | Documentati | Digestive Health | Lake Dennis MD | | | 2019 | on | [place] at [facility] [address] | [address] | | | | | [address] | [place], [place] | | | | | Mailcode: OC8D | [address] | | | | | [place] for [facility] | [phone] | | | | | and Healing, | | | | | | [address] | | | | | | [place], [place] | | | | | | [address] | | | | | | [phone] | | | +--------+ + + + [...] Rogers | | | | | | [place], [place] | | | | | | [address] | | | | | | [phone] | | | | | | | [...] [address] | [place], [place] | [phone] | | [place] | | | | [...] + + | [facility] - | [address] | [place] | [phone] | | [place] | | | | + + + + + documented in this encounter Visit Diagnoses Not on filedocumented in this encounter"
--- OUTSIDE RECORDS SUMMARY | ~2019-02-11 | XMS | Encounter Summary ---
Demographics + + + | Address | [address] | | | [place] [address] | + + + | Home Phone [...] + | Roxana Bo | ECON | [address] | | | | | [place] | | | | | [address] | | + + + + + Care Team Providers + +------+ + | Care Poultry Culler Name | Role | Phone | + +------+ + | Ventura Carrasquillo MD | PCP | | + +------+ + Encounter Details +--------+ + + + + | Date | Type | Department | Care Team | Description | +--------+ + + + + | 10/03/ | Abstract | Digestive Health | Lake Dennsi MD | | | 2010 | | [place] [address] [address] | [address] | | | | | [address] | [place], [place] | | | | | Mailcode: OC8D | [address] | | | | | [place] for [facility] | [phone] | | | | | and Healing, | | | | | | [address] | | | | | | [place], [place] | | | | | | [address] | | | | | | [phone] | | | +--------+ + + + [...] | | | | | | [place] | | | | | | [address] | | | | | | [phone] | | | | | | | | +--------+---------+ + + + documented as of this encounter Visit Diagnoses Not on filedocumented in this encounter"
--- OUTSIDE RECORDS SUMMARY | ~2019-02-11 | XMS | Encounter Summary ---
Demographics + + + | Address | [address] | | | [place] [address] | + + + | Home Phone [...] + | Roxana Bo | ECON | [address] | | | | | [place] | | | | | [address] | | + + + + + Care Team Providers + +------+ + | Care Application Architect Name | Role | Phone | [...] | | | | | REFERRING | [place], [place] | | | | | | PROVIDER PER | [address] | | | | | | PT | Phone: | | | | | | | [phone] | | | | | | | Fax: | | | | | | | [phone] | +--------+--------+ + + + + Encounter Details +--------+---------+ + + + | Date | Type | Department | Care Team | Description | +--------+---------+ + + + | 02/10/ | Office | Digestive Health | Lake Dennis MD | Autoimmune hepatitis | | 2016 | Visit | [facility] at [facility] [address] | [address] | (HCC) (Primary Dx); | | | | [address] | [facility] [place] | Primary biliary | | | | Mailcode: OC8D | [address] | cirrhosis (HCC) | | | | [facility] | [phone] | | | | | and Joshua, | | | | | | [address] | | | | | | [place], [place] | | | | | | [address] | | | | | | [phone] | | | +--------+---------+ + + + [...] 1,000 Units by mo ut once daily. ridcbjnrkofk-nrwoovk-kbhynxs-folic acid chewable 200-0.4 mg Oral Tablet, Chewable Take 2 Tabs by mouth once daily. rocmzaqxukix-awhnqfe-uird-lutein (CENTRUM SILVER ULTRA WOMEN'S) Oral Tablet Take 1 Tab by mouth once daily. [place]-3 Fatty Acids-Vitamin E (FISH OIL) 1,000 mg [...] disease. Plan 1) cont current meds 2) r9ypolnq liver set, CBC 3) RTC in 1 [...] [address] | | | | | | [place], [place] | | | | | | [address] | | | | | | [phone] | | | | | | | | +--------+---------+ + + + documented as of this encounter Visit Diagnoses + + | Diagnosis | + + | Autoimmune hepatitis (HCC) - Primary Autoimmune hepatitis | + + | Primary biliary cirrhosis (HCC) Biliary cirrhosis | + + documented in this encounter
--- OUTSIDE RECORDS SUMMARY | ~2019-02-11 | XMS | Encounter Summary ---
Demographics + + + | Address | [address] | | | [place] [address] | + + + | Home Phone [...] + | Roxana Bo | ECON | [address] | | | | | [place] | | | | | [address] | | + + + + + Care Team Providers + +------+ + | Care Civil Rights Representative Name | Role | Phone | [...] Rd | | | | | | [place], [place] | | | | | | [address] | | | +--------+ + + + [...] [address] | | | | | | [place], [place] | | | | | | [address] | | | | | | [phone] | | | | | | | [...]
--- OUTSIDE RECORDS SUMMARY | ~2019-02-11 | XMS | Encounter Summary ---
Demographics + + + | Address | [address] | | | [place] [address] | + + + | Home Phone [...] + | Roxana Bo | ECON | [address] | | | | | [place] | | | | | [address] | | + + + + + Care Team Providers + +------+ + | Care Flue Tile Press Operator Name | Role | Phone [...] | | | Procedures | FAMILY | [place], [place] | | | | | CONSULT TO | MEDICINE | [address] | | | | | HEPATOLOGY | [address] | Phone: | | | | | liver bx | [address] | [phone] | | | | | | [place], | Fax: | | | | | | [place] [address] | [phone] | | | | | | Phone: | | | | | | | [phone] | | | | | | | Fax: | | | | | | | [phone] | | +--------+ + + + + + Encounter Details +--------+---------+ + + + | Date | Type | Department | Care Team | Description | +--------+---------+ + + + | 02/12/ | Office | Digestive Health | Lake Ontiveros MD | Autoimmune hepatitis | | 2009 | Visit | Center at [facility] [address] | [address] | (HCC); Primary | | | | [address] | [place], [place] | biliary cirrhosis | | | | Mailcode: OC8D | [address] | (HCC) | | | | [facility] | [phone] | | | | | and Healing, | | | | | | [address] | | | | | | [place], [place] | | | | | | [address] | | | | | | [phone] | | | +--------+---------+ + + + [...] [address] | | | | | | [place], [place] | | | | | | [address] | | | | | | [phone] | | | | | | | [...] [address] | [place] [address] | | | [place] | [address] | [address] | [place] [address] | | | [place] | [address] | [address] | [place], [place] [address] | | | [place] | [address] | [...]
--- OUTSIDE RECORDS SUMMARY | ~2019-02-11 | XMS | Encounter Summary ---
Demographics + + + | Address | [address] | | | [place] [address] | + + + | Home Phone [...] + | Roxana Bo | ECON | [address] | | | | | [place] | | | | | [address] | | + + + + + Care Team Providers + +------+ + | Care [employer] Principal Name | Role | Phone | + +------+ + | Ventura Carrasquillo MD | PCP | | + +------+ + Encounter Details +--------+ + + + + | Date | Type | Department | Care Team | Description | +--------+ + + + + | 04/26/ | Abstract | Digestive Health | Lake Dennis MD | | | 2011 | | [place] [address] [address] | [address] | | | | | [address] | [place], [place] | | | | | Mailcode: OC8D | [address] | | | | | [place] for [facility] | [phone] | | | | | and Healing, | | | | | | [address] | | | | | | [place], [place] | | | | | | [address] | | | | | | [phone] | | | +--------+ + + + [...] [address] | | | | | | [place] | | | | | | [address] | | | | | | [phone] | | | | | | | | +--------+---------+ + + + documented as of this encounter Visit Diagnoses Not on filedocumented in this encounter"
--- OUTSIDE RECORDS SUMMARY | ~2019-02-11 | XMS | Encounter Summary ---
Demographics + + + | Address | [address] | | | [place] [address] | + + + | Home Phone [...] + | Roxana Bo | ECON | [address] | | | | | [place] | | | | | [address] | | + + + + + Care Team Providers + +------+ + | Care General Office Dispatcher Name | Role | Phone | + [...] 2012 | | Center at [facility] [address] | [address] | Medication | | | | [address] | [place], [place] | management ([facility]) | | | | Mailcode: OC8D | [address] | | | | | [facility] | [phone] | | | | | and Healing, | | | | | | [address] | | | | | | [facility] [place] | | | | | | [address] | | | | | | [phone] | | | +--------+ + + + [...] [address] | | | | | | [place], [place] | | | | | | [address] | | | | | | [phone] | | | | | | | | +--------+---------+ + + + documented as of this encounter Visit Diagnoses Not on filedocumented in this encounter"
--- OUTSIDE RECORDS SUMMARY | ~2019-02-11 | XMS | Encounter Summary ---
Demographics + + + | Address | [address] | | | [place] [address] | + + + | Home Phone [...] + | Roxana Bo | ECON | [address] | | | | | [place] | | | | | [address] | | + + + + + Care Team Providers + +------+ + | Care Lead Software Developer Name | Role | Phone | [...] Medical Records | | 2019 | | [place] at [facility] [address] | [address] | Review | | | | [address] | [place], [place] | | | | | Mailcode: OC8D | [address] | | | | | [facility] | [phone] | | | | | and Healing, | | | | | | [address] | | | | | | [place], [place] | | | | | | [address] | | | | | | [phone] | | | +--------+ + + + [...] [address] | | | | | | [place], [place] | | | | | | [address] | | | | | | [phone] | | | | | | | | +--------+---------+ + + + documented as of this encounter Visit Diagnoses Not on filedocumented in this encounter"
--- OUTSIDE RECORDS SUMMARY | ~2019-02-11 | XMS | Encounter Summary ---
Demographics + + + | Address | [address] | | | [place] [address] | + + + | Home Phone [...] + | Roxana Bo | ECON | [address] | | | | | [place] | | | | | [address] | | + + + + + Care Team Providers + +------+ + | Care Marketing Community Liaison Name | Role | Phone | + [...] | | 2012 | | Center at [facility] [address] | [address] | last refill 03/2012) | | | | [address] | [place], [place] | | | | | Mailcode: OC8D | [address] | | | | | [facility] | [phone] | | | | | and Joshua, | | | | | | [address] | | | | | | [place], [place] | | | | | | [address] | | | | | | [phone] | | | +--------+--------+ + + + [...] | | | | | | [facility] [place] | | | | | | [address] | | | | | | [phone] | | | | | | | | +--------+---------+ + + + documented as of this encounter Visit Diagnoses Not on filedocumented in this encounter"
--- OUTSIDE RECORDS SUMMARY | ~2019-02-11 | XMS | Encounter Summary ---
Demographics + + + | Address | [address] | | | [place] [address] | + + + | Home Phone [...] + | Roxana Bo | ECON | [address] | | | | | [place] | | | | | [address] | | + + + + + Care Team Providers + +------+ + | Care Manufacturing Shift Supervisor Name | Role | Phone | [...] 2017 | Encounter | Center at [facility] [address] | [address] | request | | | | [address] | [place], [place] | | | | | Mailcode: OC8D | [address] | | | | | [place] for Health | [phone] | | | | | and Healing, | | | | | | [address] | | | | | | [place], [place] | | | | | | [address] | | | | | | [phone] | | | +--------+ + + + [...] Rogers | | | | | | [place] | | | | | | [address] | | | | | | [phone] | | | | | | | | +--------+---------+ + + + documented as of this encounter Visit Diagnoses Not on filedocumented in this encounter"
--- OUTSIDE RECORDS SUMMARY | ~2019-02-11 | XMS | Encounter Summary ---
Demographics + + + | Address | [address] | | | [place] [address] | + + + | Home Phone [...] + | Roxana Bo | ECON | [address] | | | | | [place] | | | | | [address] | | + + + + + Care Team Providers + +------+ + | Care Loan Teller Name | Role | Phone | + [...] Refill Request | | 2013 | | [place] [address] [address] | [address] | (URSODIOL) | | | | [address] | [place], [place] | | | | | Mailcode: OC8D | [address] | | | | | [facility] | [phone] | | | | | and Healing, | | | | | | [address] | | | | | | [place], [place] | | | | | | [address] | | | | | | [phone] | | | +--------+--------+ + + + [...] [address] | | | | | | [place], [place] | | | | | | [address] | | | | | | [phone] | | | | | | | | +--------+---------+ + + + documented as of this encounter Visit Diagnoses Not on filedocumented in this encounter"
--- OUTSIDE RECORDS SUMMARY | ~2019-02-11 | XMS | Encounter Summary ---
Demographics + + + | Address | [address] | | | [place] [address] | + + + | Home Phone [...] + | Roxana Bo | ECON | [address] | | | | | [place] | | | | | [address] | | + + + + + Care Team Providers + +------+ + | Care Gravity Meter Observer Name | Role | Phone | [...] Letters | | 2008 | scribed | [place] at [facility] [address] | [address] | | | | | [address] | [place], [place] | | | | | Mailcode: OC8D | [address] | | | | | [place] for [facility] | [phone] | | | | | and Healing, | | | | | | [address] | | | | | | [place], [place] | | | | | | [address] | | | | | | [phone] | | | +--------+ + + + [...] Dennis MD - 02/15/2009 9:58 AM PDT [id number] 02/14/2009 [id number] RACHEAL Zapata 329228 [facility] and [address] [place], [place] [address] or February 14, 2009 Ventura Carrasquillo M.D. [facility] [address] [place] [address] RE: DALIA BO MR #: [id number] Dear Ventura: I had the pleasure of [...] any additional information. Sincerely, [place] M.D. [place] / HS [id number] / [id number] / [id number] / documented in this encou nter Plan of Treatment +--------+---------+ + + + | Date | Type | Specialty | Care Team | Description | +--------+---------+ + + + | 01/26/ | Office | Hepatology | Lake Dennis MD | | | 2020 | Visit | | [address] | | | | | | [place], [place] | | | | | | [address] | | | | | | [phone] | | | | | | | | +--------+---------+ + + + documented as of this encounter Visit Diagnoses Not on filedocumented in this encounter"
--- OUTSIDE RECORDS SUMMARY | ~2019-02-11 | XMS | Encounter Summary ---
Demographics + + + | Address | [address] | | | [place] [address] | + + + | Home Phone [...] + | Roxana Bo | ECON | [address] | | | | | [place] | | | | | [address] | | + + + + + Care Team Providers + +------+ + | Care Floor Layer Helper Name | Role | Phone | + +------+ + | Ventura Carrasquillo MD | PCP | | + +------+ + Encounter Details +--------+ + + + + | Date | Type | Department | Care Team | Description | +--------+ + + + + | 11/11/ | Documentati | Digestive Health | Lake Dennis MD | | | 2010 | on | [place] at [facility] [address] | [address] | | | | | [address] | [place], [place] | | | | | Mailcode: OC8D | [address] | | | | | [place] for [facility] | [phone] | | | | | and Healing, | | | | | | [address] | | | | | | [place], [place] | | | | | | [address] | | | | | | [phone] | | | +--------+ + + + [...] [address] | | | | | | [facility] [place] | | | | | | [address] | | | | | | [phone] | | | | | | | [...]
--- OUTSIDE RECORDS SUMMARY | ~2019-02-11 | XMS | Encounter Summary ---
Demographics + + + | Address | [address] | | | [place] [address] | + + + | Home Phone [...] + | Roxana Bo | ECON | [address] | | | | | [place] | | | | | [address] | | + + + + + Care Team Providers + +------+ + | Care Draw In Hand Name | Role | Phone | + +------+ + | Ventura Carrasquillo MD | PCP | | + +------+ + Encounter Details +--------+ + + + + | Date | Type | Department | Care Team | Description | +--------+ + + + + | 04/08/ | Documentati | Digestive Health | Clinic, | | | 2010 | on | [place] at [facility] [address] | Gastroenterology | | | | | [address] | | | | | | Mailcode: OC8D | | | | | | [place] for [facility] | | | | | | and Healing, | | | | | | [address] | | | | | | [place], [place] | | | | | | [address] | | | | | | [phone] | | | +--------+ + + + [...] [place] | | | | | | [address] | | | | | | [phone] | | | | | | | | +--------+---------+ + + + documented as of this encounter Visit Diagnoses Not on filedocumented in this encounter"
--- OUTSIDE RECORDS SUMMARY | ~2019-02-11 | XMS | Encounter Summary ---
Demographics + + + | Address | [address] | | | [place] [address] | + + + | Home Phone [...] + | Roxana Bo | ECON | [address] | | | | | [place] | | | | | [address] | | + + + + + Care Team Providers + +------+ + | Care Spiral Binder Name | Role | Phone | + [...] | 2017 | Encounter | Center at [facility] [address] | [address] | request | | | | [address] | [place], [place] | | | | | Mailcode: OC8D | [address] | | | | | [place] [facility] | [phone] | | | | | and Healing, | | | | | | [address] | | | | | | [place], [place] | | | | | | [address] | | | | | | [phone] | | | +--------+ + + + [...] | | | | | | [place] | | | | | | [address] | | | | | | [phone] | | | | | | | | +--------+---------+ + + + documented as of this encounter Visit Diagnoses Not on filedocumented in this encounter"
--- OUTSIDE RECORDS SUMMARY | ~2019-02-11 | XMS | Encounter Summary ---
Demographics + + + | Address | [address] | | | [place] [address] | + + + | Home Phone [...] + | Roxana Bo | ECON | [address] | | | | | [place] | | | | | [address] | | + + + + + Care Team Providers + +------+ + | Care Application Support Name | Role | Phone | + [...] Medication Question | | 2017 | | [place] [address] [address] | [address] | | | | | [address] | [place], [place] | | | | | Mailcode: OC8D | [address] | | | | | [facility] | [phone] | | | | | and Healing, | | | | | | [address] | | | | | | [place], [place] | | | | | | [address] | | | | | | [phone] | | | +--------+ + + + [...] Rogers | | | | | | [place], [place] | | | | | | [address] | | | | | | [phone] | | | | | | | | +--------+---------+ + + + documented as of this encounter Visit Diagnoses Not on filedocumented in this encounter"
--- OUTSIDE RECORDS SUMMARY | ~2019-02-11 | XMS | Encounter Summary ---
Demographics + + + | Address | [address] | | | [place] [address] | + + + | Home Phone [...] + | Roxana Bo | ECON | [address] | | | | | [place] | | | | | [address] | | + + + + + Care Team Providers + +------+ + | Care Wildlife Biology Technician Name | Role | Phone | [...] Medication Question | | 2017 | | [place] [address] [address] | [address] | | | | | [address] | [place], [place] | | | | | Mailcode: OC8D | [address] | | | | | [facility] | [phone] | | | | | and Healing, | | | | | | [address] | | | | | | [place], [place] | | | | | | [address] | | | | | | [phone] | | | +--------+ + + + [...] Rogers | | | | | | [place], [place] | | | | | | [address] | | | | | | [phone] | | | | | | | | +--------+---------+ + + + documented as of this encounter Visit Diagnoses Not on filedocumented in this encounter"
--- OUTSIDE RECORDS SUMMARY | ~2019-02-11 | XMS | Encounter Summary ---
Demographics + + + | Address | [address] | | | [place] [address] | + + + | Home Phone [...] + | Roxana Bo | ECON | [address] | | | | | [place] | | | | | [address] | | + + + + + Care Team Providers + +------+ + | Care Investment Officer Name | Role | Phone | [...] | | 2011 | | Center at [facility] [address] | [address] | teaching, guidance, | | | | [address] | [place], [place] | and counseling | | | | Mailcode: OC8D | [address] | | | | | [facility] | [phone] | | | | | and Healing, | | | | | | [address] | | | | | | [place], [place] | | | | | | [address] | | | | | | [phone] | | | +--------+ + + + [...] Rogers | | | | | | [place], [place] | | | | | | [address] | | | | | | [phone] | | | | | | | | +--------+---------+ + + + documented as of this encounter Visit Diagnoses + + | Diagnosis | + + | Autoimmune hepatitis (HCC) Autoimmune hepatitis | + + | Primary biliary cirrhosis (HCC) Biliary cirrhosis | + + documented in this encounter"
--- OUTSIDE RECORDS SUMMARY | ~2019-02-11 | XMS | Encounter Summary ---
Demographics + + + | Address | [address] | | | [place] [address] | + + + | Home Phone [...] + | Roxana Bo | ECON | [address] | | | | | [place] | | | | | [address] | | + + + + + Care Team Providers + +------+ + | Care Cook Starch Name | Role | Phone | + [...] | 2016 | on | Center at [facility] [address] | [address] | (Outside Labs from | | | | [address] | [place], [place] | [facility] [place] | | | | Mailcode: OC8D | [address] | 09/03/15) | | | | [facility] | [phone] | | | | | and Healing, | | | | | | [address] | | | | | | [place], [place] | | | | | | [address] | | | | | | [phone] | | | +--------+ + + + [...] Rogers | | | | | | [place], [place] | | | | | | [address] | | | | | | [phone] | | | | | | | [...] [address] | [place] | [phone] | | [place] | | | | + + + [...] | + + + + + | [facility] | [address] | [place] | [phone] | | [place] | | | | + + + + + documented in this encounter Visit Diagnoses Not on filedocumented in this encounter"
--- OUTSIDE RECORDS SUMMARY | ~2019-02-11 | XMS | Encounter Summary ---
Demographics + + + | Address | [address] | | | [place] [address] | + + + | Home Phone [...] + | Roxana Bo | ECON | [address] | | | | | [place] | | | | | [address] | | + + + + + Care Team Providers + +------+ + | Care Saw Setter Name | Role | Phone | + +------+ + | Ventura Carrasquillo MD | PCP | | + +------+ + Encounter Details +--------+ + + + + | Date | Type | Department | Care Team | Description | +--------+ + + + + | 04/07/ | Documentati | Digestive Health | Clinic, | | | 2010 | on | [place] at [facility] [address] | Gastroenterology | | | | | [address] | | | | | | Mailcode: OC8D | | | | | | [place] for [facility] | | | | | | and Healing, | | | | | | [address] | | | | | | [place], [place] | | | | | | [address] | | | | | | [phone] | | | +--------+ + + + [...] [place] | | | | | | [address] | | | | | | [phone] | | | | | | | | +--------+---------+ + + + documented as of this encounter Visit Diagnoses Not on filedocumented in this encounter"
--- OUTSIDE RECORDS SUMMARY | ~2019-02-11 | XMS | Encounter Summary ---
Demographics + + + | Address | [address] | | | [place] [address] | + + + | Home Phone [...] + | Roxana Bo | ECON | [address] | | | | | [place] | | | | | [address] | | + + + + + Care Team Providers + +------+ + | Care Permastone Installer Name | Role | Phone | [...] | 2019 | Encounter | Center at [facility] [address] | [address] | | | | | [address] | [place], [place] | | | | | Mailcode: OC8D | [address] | | | | | [place] [facility] | [phone] | | | | | and [place], | | | | | | [address] | | | | | | [place], [place] | | | | | | [address] | | | | | | [phone] | | | +--------+ + + + [...] | | 2019 | Visit | | [address] | | | | | | [place], [place] | | | | | | [address] | | | | | | [phone] | | | | | | | | +--------+---------+ + + + documented as of this encounter Visit Diagnoses Not on filedocumented in this encounter"
--- OUTSIDE RECORDS SUMMARY | ~2019-02-11 | XMS | Encounter Summary ---
Demographics + + + | Address | [address] | | | [place] [address] | + + + | Home Phone [...] + | Roxana Bo | ECON | [address] | | | | | [place] | | | | | [address] | | + + + + + Care Team Providers + +------+ + | Care Social Contact Worker Name | Role | Phone | [...] | 2018 | on | Center at [facility] [address] | [address] | (Outside labs from | | | | [address] | [place], [place] | [facility] 01/08/18.) | | | | Mailcode: OC8D | [address] | | | | | [facility] | [phone] | | | | | and [place], | | | | | | [address] | | | | | | [place], [place] | | | | | | [address] | | | | | | [phone] | | | +--------+ + + + [...] Rogers | | | | | | [place], [place] | | | | | | [address] | | | | | | [phone] | | | | | | | [...] [address] | [place] | [phone] | | [place] | | | | [...] [address] | [place] | [phone] | | [place] | | | | + + + + + documented in this encounter Visit Diagnoses Not on filedocumented in this encounter"
--- OUTSIDE RECORDS SUMMARY | ~2019-02-11 | XMS | Encounter Summary ---
Demographics + + + | Address | [address] | | | [place] [address] | + + + | Home Phone [...] + | Roxana Bo | ECON | [address] | | | | | [place] | | | | | [address] | | + + + + + Care Team Providers + +------+ + | Care Supervisor Blueprinting And Photocopy Name | Role | Phone | + [...] | Medication | | 2010 | | [place] [address] [address] | [address] | management | | | | [address] | [place], [place] | | | | | Mailcode: OC8D | [address] | | | | | [facility] | [phone] | | | | | and Healing, | | | | | | [address] | | | | | | [place], [place] | | | | | | [address] | | | | | | [phone] | | | +--------+ + + + [...] Rogers | | | | | | [place], [place] | | | | | | [address] | | | | | | [phone] | | | | | | | | +--------+---------+ + + + documented as of this encounter Visit Diagnoses Not on filedocumented in this encounter"
--- OUTSIDE RECORDS SUMMARY | ~2019-02-11 | XMS | Encounter Summary ---
Demographics + + + | Address | [address] | | | [place] [address] | + + + | Home Phone [...] + | Roxana Bo | ECON | [address] | | | | | [place] | | | | | [address] | | + + + + + Care Team Providers + +------+ + | Care Medical Radiation Dosimetrist Name | Role | Phone | + [...] | | | Procedures | FAMILY | [place], [place] | | | | | CONSULT TO | MEDICINE | [address] | | | | | HEPATOLOGY | [address] | Phone: | | | | | liver bx | [address] | [phone] | | | | | | [place], | Fax: | | | | | | [place] [address] | [phone] | | | | | | Phone: | | | | | | | [phone] | | | | | | | Fax: | | | | | | | [phone] | | +--------+ + + + + + Encounter Details +--------+---------+ + + + | Date | Type | Department | Care Team | Description | +--------+---------+ + + + | 12/07/ | Office | Digestive Health | Lake Ontiveros MD | Autoimmune hepatitis | | 2010 | Visit | Center at [facility] [address] | [address] | (HCC); Primary | | | | [address] | [place], [place] | biliary cirrhosis | | | | Mailcode: OC8D | [address] | (HCC) | | | | [facility] | [phone] | | | | | and Healing, | | | | | | [address] | | | | | | [place], [place] | | | | | | [address] | | | | | | [phone] | | | +--------+---------+ + + + [...] 1 Applicator to affected area once daily. Xjvierwcjly-Fvpixgwoi-Xuc C-Mn (GLUCOSAMINE CHONDROITIN MAXSTR) 500-400 mg Oral Capsule Take 2 Tabs by mouth once daily. zbudvitwacfc-hinfphc-ldvjftu-folic acid chewable 200-0.4 mg Oral Tablet, Chewable Take 2 Tabs by mouth once daily. jemshjobbrgv-otyikno-cpjh-lutein (CENTRUM SILVER ULTRA WOMEN'S) Oral Tablet Take [...] Plan 1) cont current meds 2) labs z4zercnd: CMP, CBC, plts, diff, INR 3) RTC [...] Rogers | | | | | | [place], [place] | | | | | | [address] | | | | | | [phone] | | | | | | | | +--------+---------+ + + + documented as of this encounter Visit Diagnoses + + | Diagnosis | + + | Autoimmune hepatitis (HCC) Autoimmune hepatitis | + + | Primary biliary cirrhosis (HCC) Biliary cirrhosis | + + documented in this encounter
--- OUTSIDE RECORDS SUMMARY | ~2019-02-11 | XMS | Encounter Summary ---
Demographics + + + | Address | [address] | | | [place] [address] | + + + | Home Phone [...] + | Roxana Bo | ECON | [address] | | | | | [place] | | | | | [address] | | + + + + + Care Team Providers + +------+ + | Care Acute Care Assistant Name | Role | Phone | [...] | Medication | | 2010 | | [place] [address] [address] | [address] | management | | | | [address] | [place], [place] | | | | | Mailcode: OC8D | [address] | | | | | [facility] | [phone] | | | | | and Healing, | | | | | | [address] | | | | | | [place], [place] | | | | | | [address] | | | | | | [phone] | | | +--------+ + + + [...] Rogers | | | | | | [place], [place] | | | | | | [address] | | | | | | [phone] | | | | | | | | +--------+---------+ + + + documented as of this encounter Visit Diagnoses Not on filedocumented in this encounter"
--- OUTSIDE RECORDS SUMMARY | ~2019-02-11 | XMS | Encounter Summary ---
Demographics + + + | Address | [address] | | | [place] [address] | + + + | Home Phone [...] + | Roxana Bo | ECON | [address] | | | | | [place] | | | | | [address] | | + + + + + Care Team Providers + +------+ + | Care Efficiency Clerk Name | Role | Phone | + +------+ + | Ventura Carrasquillo MD | PCP | | + +------+ + Reason for Visit + + + | Reason | Comments | + + + | Blood Test Results | [facility] 01/02/15 Lab [...] Test Results | | 2015 | | [place] [address] [address] | [address] | ([facility] | | | | [address] | [place], [place] | 01/02/15 Lab Results | | | | Mailcode: OC8D | [address] | (AST, alk phos, | | | | [facility] | [phone] | bili, protein, | | | | and Healing, | | albumin, bili, ALT, | | | | Building [address] | | CBC)) | | | | [place], [place] | | | | | | [address] | | | | | | [phone] | | | +--------+ + + + [...] Ave | | | | | | [place], [place] | | | | | | [address] | | | | | | [phone] | | | | | | | | +--------+---------+ + + + documented as of this encounter Visit Diagnoses Not on filedocumented in this encounter"
--- OUTSIDE RECORDS SUMMARY | ~2019-02-11 | XMS | Encounter Summary ---
Demographics + + + | Address | [address] | | | [place] [address] | + + + | Home Phone [...] + | Roxana Bo | ECON | [address] | | | | | [place] | | | | | [address] | | + + + + + Care Team Providers + +------+ + | Care Postal Service Sectional Center Manager Name | Role | Phone | + +------+ + | Ventura Carrasquillo MD | PCP | | + +------+ + Encounter Details +--------+ + + + + | Date | Type | Department | Care Team | Description | +--------+ + + + + | 02/19/ | Horse Trekking Guide | Digestive Health | Lake Dennis MD | Nonspecific Abnormal | | 2008 | | Center at [facility] [address]85 | [address] | Results of Liver | | | | [address] | [place], [place] | Function Study | | | | Mailcode: OC8D | [address] | (Primary Dx) | | | | [facility] | [phone] | | | | | and Joshua, | | | | | | [address] | | | | | | [place], [place] | | | | | | [address] | | | | | | [phone] | | | +--------+ + + + [...] Rogers | | | | | | [place], [place] | | | | | | [address] | | | | | | [phone] | | | | | | | [...]
--- OUTSIDE RECORDS SUMMARY | ~2019-02-11 | XMS | Encounter Summary ---
Demographics + + + | Address | [address] | | | [place] [address] | + + + | Home Phone [...] + | Roxana Bo | ECON | [address] | | | | | [place] | | | | | [address] | | + + + + + Care Team Providers + +------+ + | Care Cement Mixer Driver Name | Role | Phone | [...] | | | | | liver | [place], [place] | [place] | | | | | function | [address] | Mailcode: | | | | | study | Phone: | [phone] | | | | | Procedures | [phone] | Physician's | | | | | US BIOPSY | Fax: | Pavilion | | | | | LIVER W/ US | [phone] | [place], [place] | | | | | & GUIDANCE | | [address] | | | | | | | Phone: | | | | | | | [phone] | | | | | | | Fax: | | | | | | | [phone] | +--------+--------+ + + + + Reason [...] | | | Procedures | FAMILY | [place], [place] | | | | | CONSULT TO | MEDICINE | [address] | | | | | HEPATOLOGY | [address] | Phone: | | | | | liver bx | [address] | [phone] | | | | | | [place], | Fax: | | | | | | [place] [address] | [phone] | | | | | | Phone: | | | | | | | [phone] | | | | | | | Fax: | | | | | | | [phone] | | +--------+ + + + + + Encounter Details +--------+---------+ + + + | Date | Type | Department | Care Team | Description | +--------+---------+ + + + | 02/14/ | Office | Digestive Health | Lake Dennis MD | Nonspecific Abnormal | | 2009 | Visit | Center at [facility] [address] | [address] | Results of Liver | | | | [address] | [place], [place] | Function Study | | | | Mailcode: OC8D | [address] | (Primary Dx) | | | | [facility] | [phone] | | | | | and Healing, | | | | | | [address] | | | | | | [place], [place] | | | | | | [address] | | | | | | [phone] | | | +--------+---------+ + + + [...] office note has been dictated. CSN #: [id number] documented in this encoun ter Plan of Treatment +--------+---------+ + + + | Date | Type | Specialty | Care Team | Description | +--------+---------+ + + + | 01/26/ | Office | Hepatology | Lake Dennis MD | | | 2020 | Visit | | [address] | | | | | | [place], [place] | | | | | | [address] | | | | | | [phone] | | | | | | | [...] Way | DEPARTMENT OF | | Lab) [facility] [place] [address] [address] | PATHOLOGY | | [place] [address] | | + + + + + + + + | Performing | Address | City/State/Zipcode | Phone Number | | Organization | | | | + + + + + | [facility] | [address] | [place] [address] | | | PATHOLOGY | [address] [...] | DEPARTMENT OF | | Way Lab) [facility] | PATHOLOGY | | [address] | | | [place] [address] RLB | | | ([address] Lab) [facility] | | | [address] | | | [place] [address] | | + + + + + + + + | Performing | Address | City/State/Zipcode | Phone Number | | Organization | | | | + + + + + | [facility] | [address] | [place] [address] | | | PATHOLOGY | [address] [...] At | + + + | [facility] [place] | [place] | | [place] [address] [address] [facility] | DEPARTMENT OF | | [place] [address] | PATHOLOGY | + + + + + + + + | Performing | Address | City/State/Zipcode | Phone Number | | Organization | | | | + + + + + | [facility] | [address] | [place] [address] | | | PATHOLOGY | [address] [...] 1.00Comment: | 0.98 - 1.20 INR | [facility] | | | | PT INR | [...] | + + + + + | [facility] DEPARTMENT OF | [address] | [place] [address] | | | PATHOLOGY | [address] | | | + + + + + | [facility] DEPARTMENT OF | [address] | [place] [address] | | | PATHOLOGY | [address] [...] DEPARTMENT OF | [address] | [place] [address] | | | PATHOLOGY | [address] | | | + + + + + | [facility] DEPARTMENT OF | [address] | [place] [address] | | | PATHOLOGY | [address] [...] | + + + + + | [facility] | [address] [facility] | [place] [address] | | | PATHOLOGY | [address] | | | + + + + + | [facility] | [address] [facility] | [place] [address] | | | PATHOLOGY | [address] [...]
--- OUTSIDE RECORDS SUMMARY | ~2019-02-11 | XMS | Encounter Summary ---
Demographics + + + | Address | [address] | | | [place] [address] | + + + | Home Phone [...] + | Roxana Bo | ECON | [address] | | | | | [place] | | | | | [address] | | + + + + + Care Team Providers + +------+ + | Care Movie Theater Manager Name | Role | Phone | [...] + + + + | 01/26/ | Harness Installer | Digestive Health | Lake Dennis MD | Primary biliary | | 2017 | | Center at [facility] [address] | [address] | cirrhosis (HCC) | | | | [address] | [place], [place] | (Primary Dx); | | | | Mailcode: OC8D | [address] | Autoimmune hepatitis | | | | [facility] | [phone] | (HCC) | | | | and Healing, | | | | | | [address] | | | | | | [place], [place] | | | | | | [address] | | | | | | [phone] | | | +--------+ + + + [...] [address] | | | | | | [place], [place] | | | | | | [address] | | | | | | [phone] | | | | | | | | +--------+---------+ + + + documented as of this encounter Visit Diagnoses + + | Diagnosis | + + | Primary biliary cirrhosis (HCC) - Primary Biliary cirrhosis | + + | Autoimmune hepatitis (HCC) Autoimmune hepatitis | + + documented in this encounter"
--- OUTSIDE RECORDS SUMMARY | ~2019-02-11 | XMS | Encounter Summary ---
Demographics + + + | Address | [address] | | | [place] [address] | + + + | Home Phone [...] + | Roxana Bo | ECON | [address] | | | | | [place] | | | | | [address] | | + + + + + Care Team Providers + +------+ + | Care Concrete Craftsman Name | Role | Phone | + [...] | 2011 | Encounter | Center at [facility] [address] | [address] | medication list | | | | [address] | [place], [place] | | | | | Mailcode: OC8D | [address] | | | | | [facility] | [phone] | | | | | and Healing, | | | | | | [address] | | | | | | [place], [place] | | | | | | [address] | | | | | | [phone] | | | +--------+ + + + [...] [address] | | | | | | [place] | | | | | | [address] | | | | | | [phone] | | | | | | | | +--------+---------+ + + + documented as of this encounter Visit Diagnoses Not on filedocumented in this encounter"
--- OUTSIDE RECORDS SUMMARY | ~2019-02-11 | XMS | Encounter Summary ---
Demographics + + + | Address | [address] | | | [place] [address] | + + + | Home Phone [...] + | Roxana Bo | ECON | [address] | | | | | [place] | | | | | [address] | | + + + + + Care Team Providers + +------+ + | Care Member Certification Manager Name | Role | Phone | [...] | | | biliary | REFERRING | [place], [place] | | | | | cirrhosis | PROVIDER PER | [address] | | | | | Procedures | PT | Phone: | | | | | [place] | | [phone] | | | | | OFFICE/OUTPT | | Fax: | | | | | | | [phone] | | | | | VISIT,EST,LE | [...] | 2017 | Visit | Center at [facility] [address]85 | [address] | cirrhosis (HCC) | | | | [address] | [place], [place] | (Primary Dx); | | | | Mailcode: OC8D | [address] | Autoimmune hepatitis | | | | [facility] | [phone] | (HCC) | | | | and Healing, | | | | | | [address] | | | | | | [place], [place] | | | | | | [address] | | | | | | [phone] | | | +--------+---------+ + + + [...] unit oral tablet Take 1,[address] [facility] once daily. sjbjfplelwtw-jnqgvzv-mflf-lutein (CENTRUM SILVER ULTRA WOMEN'S) Oral Tablet Take 1 Tab by mouth once daily. [place]-3 Fatty Acids-Vitamin E (FISH OIL) 1,000 mg [...] 1) cont current meds 2) CMP, CBC [id number] 3) RTC in 1 yr Counseling Time: [...] Rogers | | | | | | [place], [place] | | | | | | [address] | | | | | | [phone] | | | | | | | | +--------+---------+ + + + documented as of this encounter Visit Diagnoses + + | Diagnosis | + + | Primary biliary cirrhosis (HCC) - Primary Biliary cirrhosis | + + | Autoimmune hepatitis (HCC) Autoimmune hepatitis | + + documented in this encounter
--- OUTSIDE RECORDS SUMMARY | ~2019-02-11 | XMS | Encounter Summary ---
Demographics + + + | Address | [address] | | | [place] [address] | + + + | Home Phone [...] + | Roxana Bo | ECON | [address] | | | | | [place] | | | | | [address] | | + + + + + Care Team Providers + +------+ + | Care Railroad Car Cleaner Name | Role | Phone | [...] Test Results | | 2018 | | [place] [address] [address] | [address] | | | | | [address] | [place], [place] | | | | | Mailcode: OC8D | [address] | | | | | [facility] | [phone] | | | | | and Healing, | | | | | | [address] | | | | | | [place], [place] | | | | | | [address] | | | | | | [phone] | | | +--------+ + + + [...] Rogers | | | | | | [place], [place] | | | | | | [address] | | | | | | [phone] | | | | | | | | +--------+---------+ + + + documented as of this encounter Visit Diagnoses Not on filedocumented in this encounter"
--- OUTSIDE RECORDS SUMMARY | ~2019-02-11 | XMS | Encounter Summary ---
Demographics + + + | Address | [address] | | | [place] [address] | + + + | Home Phone [...] + | Roxana Bo | ECON | [address] | | | | | [place] | | | | | [address] | | + + + + + Care Team Providers + +------+ + | Care Glassie Name | Role | Phone | + [...] | 2011 | Encounter | Center at [facility] [address] | [address] | re-fill | | | | [address] | [place], [place] | | | | | Mailcode: OC8D | [address] | | | | | [facility] | [phone] | | | | | and Healing, | | | | | | [address] | | | | | | [place], [place] | | | | | | [address] | | | | | | [phone] | | | +--------+ + + + [...] [place] | | | | | | [address] | | | | | | [phone] | | | | | | | | +--------+---------+ + + + documented as of this encounter Visit Diagnoses Not on filedocumented in this encounter"
--- OUTSIDE RECORDS SUMMARY | ~2019-02-11 | XMS | Encounter Summary ---
Demographics + + + | Address | [address] | | | [place] [address] | + + + | Home Phone [...] + | Roxana Bo | ECON | [address] | | | | | [place] | | | | | [address] | | + + + + + Care Team Providers + +------+ + | Care Awning Erector Name | Role | Phone | + +------+ + | Ventura Carrasquillo MD | PCP | | + +------+ + Encounter Details +--------+ + + + + | Date | Type | Department | Care Team | Description | +--------+ + + + + | 10/04/ | Document-Sc | UNKNOWN DEPARTMENT | Unknown . | | | 2013 | anned | [address] | | | | | | [address] | | | | | | [place], [place] | | | | | | [address] | | | +--------+ + + + [...] | | 2020 | Visit | | [address] | | | | | | [place], [place] | | | | | | [address] | | | | | | [phone] | | | | | | | [...]
--- OUTSIDE RECORDS SUMMARY | ~2019-02-11 | XMS | Encounter Summary ---
Demographics + + + | Address | [address] | | | [place] [address] | + + + | Home Phone [...] + | Roxana Bo | ECON | [address] | | | | | [place] | | | | | [address] | | + + + + + Care Team Providers + +------+ + | Care Tightening Machine Operator Name | Role | Phone [...] + + + + | 02/10/ | Bucket Operator | Digestive Health | Lake Dennis MD | Autoimmune hepatitis | | 2016 | | Center [place] [address] [address] | [address] | (HCC) (Primary Dx) | | | | [address] | [place], [place] | | | | | Mailcode: OC8D | [address] | | | | | [facility] | [phone] | | | | | and Healing, | | | | | | [address] | | | | | | [place], [place] | | | | | | [address] | | | | | | [phone] | | | +--------+ + + + [...] Rogers | | | | | | [place], [place] | | | | | | [address] | | | | | | [phone] | | | | | | | | +--------+---------+ + + + documented as of this encounter Visit Diagnoses + + | Diagnosis | + + | Autoimmune hepatitis (HCC) - Primary Autoimmune hepatitis | + + documented in this encounter"
--- OUTSIDE RECORDS SUMMARY | ~2019-02-11 | XMS | Encounter Summary ---
Demographics + + + | Address | [address] | | | [place] [address] | + + + | Home Phone [...] + | Roxana Bo | ECON | [address] | | | | | [place] | | | | | [address] | | + + + + + Care Team Providers + +------+ + | Care Tire Repairer Name | Role | Phone | [...] Letters | | 2008 | scribed | [place] at [facility] [address]321 | [address] | | | | | [address] | [place], [place] | | | | | Mailcode: OC8D | [address] | | | | | [place] [facility] | [phone] | | | | | and Healing, | | | | | | [address] | | | | | | [place], [place] | | | | | | [address] | | | | | | [phone] | | | +--------+ + + + [...] Dennis MD - 02/15/2009 9:58 AM PDT [id number] 02/14/2009 [id number] RACHEAL Zapata [address] [facility] and [address] [place], [place] [id number] or February 14, 2009 Ventura Carrasquillo M.D. [facility] [address] [place] [address] RE: DALIA BO MR #: [id number] Dear Ventura: I had the pleasure of [...] Sincerely, Lake Dennis M.D. [place] / HS [id number] / [id number] / [id number] / documented in this encou nter Plan of Treatment +--------+---------+ + + + | Date | Type | Specialty | Care Team | Description | +--------+---------+ + + + | 01/26/ | Office | Hepatology | Lake Dennis MD | | | 2020 | Visit | | [address] | | | | | | [place], [place] | | | | | | [address] | | | | | | [phone] | | | | | | | | +--------+---------+ + + + documented as of this encounter Visit Diagnoses Not on filedocumented in this encounter"
--- OUTSIDE RECORDS SUMMARY | ~2019-02-11 | XMS | Encounter Summary ---
Demographics + + + | Address | [address] | | | [place] [address] | + + + | Home Phone [...] + | Roxana Bo | ECON | [address] | | | | | [place] | | | | | [address] | | + + + + + Care Team Providers + +------+ + | Care Computer Forensic Examiner Name | Role | Phone | [...] Results | | 2013 | Encounter | [place] at [facility] [address]85 | [address] | | | | | [address] | [place], [place] | | | | | Mailcode: OC8D | [address] | | | | | [facility] | [phone] | | | | | and Healing, | | | | | | Building [address] | | | | | | [place], [place] | | | | | | [address] | | | | | | [phone] | | | +--------+ + + + [...] Rogers | | | | | | [place], [place] | | | | | | [address] | | | | | | [phone] | | | | | | | | +--------+---------+ + + + documented as of this encounter Visit Diagnoses Not on filedocumented in this encounter"
--- OUTSIDE RECORDS SUMMARY | ~2019-02-11 | XMS | Encounter Summary ---
Demographics + + + | Address | [address] | | | [place] [address] | + + + | Home Phone [...] + | Roxana Bo | ECON | [address] | | | | | [place] | | | | | [address] | | + + + + + Care Team Providers + +------+ + | Care Emergency Medical Technician Name | Role | Phone | [...] Medical Records | | 2019 | | [place] at [facility] [address] | [address] | Review | | | | [address] | [place], [place] | | | | | Mailcode: OC8D | [address] | | | | | [facility] | [phone] | | | | | and Healing, | | | | | | [address] | | | | | | [place], [place] | | | | | | [address] | | | | | | [phone] | | | +--------+ + + + [...] Rogers | | | | | | [place], [place] | | | | | | [address] | | | | | | [phone] | | | | | | | | +--------+---------+ + + + documented as of this encounter Visit Diagnoses Not on filedocumented in this encounter"
--- OUTSIDE RECORDS SUMMARY | ~2019-02-11 | XMS | Encounter Summary ---
Demographics + + + | Address | [address] | | | [place] [address] | + + + | Home Phone [...] + | Roxana Bo | ECON | [address] | | | | | [place] | | | | | [address] | | + + + + + Care Team Providers + +------+ + | Care Creative Art Therapist Name | Role | Phone | [...] | Encounter | Center at [facility] [address]955 | [address] | | | | | [address] | [place], [place] | | | | | Mailcode: OC8D | [address] | | | | | [place] [facility] | [phone] | | | | | and Healing, | | | | | | [address] | | | | | | [place], [place] | | | | | | [address] | | | | | | [phone] | | | +--------+ + + + [...] Rogers | | | | | | [place], [place] | | | | | | [address] | | | | | | [phone] | | | | | | | [...]
--- OUTSIDE RECORDS SUMMARY | ~2019-02-11 | XMS | Encounter Summary ---
Demographics + + + | Address | [address] | | | [place] [address] | + + + | Home Phone [...] + | Roxana Bo | ECON | [address] | | | | | [place] | | | | | [address] | | + + + + + Care Team Providers + +------+ + | Care Immigration Case Worker Name | Role | Phone | [...] | 2011 | on | Center at [facility] [address] | [address] | (Out side labs from | | | | [address] | [place], [place] | [facility]. | | | | Mailcode: OC8D | [address] | 04/02/12.) | | | | [facility] | [phone] | | | | | and Healing, | | | | | | [address] | | | | | | [place], [place] | | | | | | [address] | | | | | | [phone] | | | +--------+ + + + [...] Rogers | | | | | | [place], [place] | | | | | | [address] | | | | | | [phone] | | | | | | | [...] [address] | [place] | [phone] | | [place] | | | | + + + + + | [facility] - | | [place], [place] | | | [place] | | [...] + + | [facility] - | [address] | [place] | [phone] | | [place] | | | | [...] [address] | [place], [place] | [phone] | | [place] | | | | + + + + + | [facility] - | | [place], [place] | | | [place] | | | | + + + + + documented in this encounter Visit Diagnoses Not on filedocumented in this encounter"
--- OUTSIDE RECORDS SUMMARY | ~2019-02-11 | XMS | Encounter Summary ---
Demographics + + + | Address | [address] | | | [place] [address] | + + + | Home Phone [...] + | Roxana Bo | ECON | [address] | | | | | [place] | | | | | [address] | | + + + + + Care Team Providers + +------+ + | Care Medical Assistant Per Diem Name | Role | Phone | + +------+ + | Ventura Carrasquillo MD | PCP | | + +------+ + Encounter Details +--------+ + + + + | Date | Type | Department | Care Team | Description | +--------+ + + + + | 04/07/ | Documentati | Digestive Health | Lake Dennis MD | | | 2010 | on | [place] at [facility] [address]295 | [address] | | | | | [address] | [place], [place] | | | | | Mailcode: OC8D | [address] | | | | | [place] for [facility] | [phone] | | | | | and Healing, | | | | | | [address] | | | | | | [place], [place] | | | | | | [address] | | | | | | [phone] | | | +--------+ + + + [...] [place] | | | | | | [address] | | | | | | [phone] | | | | | | | | +--------+---------+ + + + documented as of this encounter Visit Diagnoses Not on filedocumented in this encounter"
--- OUTSIDE RECORDS SUMMARY | ~2019-02-11 | XMS | Encounter Summary ---
Demographics + + + | Address | [address] | | | [place] [address] | + + + | Home Phone [...] + | Roxana Bo | ECON | [address] | | | | | [place] | | | | | [address] | | + + + + + Care Team Providers + +------+ + | Care Machine Fur Cleaner Name | Role | Phone | + +------+ + | Ventura Carrasquillo MD | PCP | | + +------+ + Reason for Visit + + + | Reason | Comments | + + + | Blood Test Results | [facility] 01/02/15 Lab [...] Test Results | | 2014 | | [place] [address] [address] | [address] | ([facility] | | | | [address] | [place], [place] | 01/02/15 Lab Results | | | | Mailcode: OC8D | [address] | (AST, alk phos, | | | | [facility] | [phone] | protein, alb, bili, | | | | and Healing, | | ALT, CBC)) | | | | [address] | | | | | | [place], [place] | | | | | | [address] | | | | | | [phone] | | | +--------+ + + + [...] | | 2020 | Visit | | [address] | | | | | | [place], [place] | | | | | | [address] | | | | | | [phone] | | | | | | | | +--------+---------+ + + + documented as of this encounter Visit Diagnoses Not on filedocumented in this encounter"
--- OUTSIDE RECORDS SUMMARY | ~2019-02-11 | XMS | Encounter Summary ---
Demographics + + + | Address | [address] | | | [place] [address] | + + + | Home Phone [...] + | Roxana Bo | ECON | [address] | | | | | [place] | | | | | [address] | | + + + + + Care Team Providers + +------+ + | Care Safety Technician Name | Role | Phone | [...] + + + + | 12/03/ | Awning Craftsperson | Digestive Health | Lake Dennis MD | Autoimmune hepatitis | | 2010 | | Center at [facility] [address] | [address] | (HCC); Primary | | | | [address] | [place], [place] | biliary cirrhosis | | | | Mailcode: OC8D | [address] | (HCC) | | | | [facility] | [phone] | | | | | and Healing, | | | | | | [address] | | | | | | [place], [place] | | | | | | [address] | | | | | | [phone] | | | +--------+ + + + [...] Rogers | | | | | | [place], [place] | | | | | | [address] | | | | | | [phone] | | | | | | | | +--------+---------+ + + + documented as of this encounter Visit Diagnoses + + | Diagnosis | + + | Autoimmune hepatitis (HCC) Autoimmune hepatitis | + + | Primary biliary cirrhosis (HCC) Biliary cirrhosis | + + documented in this encounter"
--- OUTSIDE RECORDS SUMMARY | ~2019-02-11 | XMS | Encounter Summary ---
Demographics + + + | Address | [address] | | | [place] [address] | + + + | Home Phone [...] [place] | | | | | [address] | | + + + + + Care Team Providers + +------+ + | Care Wall Taper Name | Role | Phone | + [...] Lab findings, | | 2010 | | [place] [address] [address] | [address] | teaching, guidance, | | | | [address] | [place], [place] | and counseling; | | | | Mailcode: OC8D | [address] | Medication | | | | [facility] | [phone] | management | | | | and Healing, | | | | | | [address] | | | | | | [facility] [place] | | | | | | [address] | | | | | | [phone] | | | +--------+ + + + [...] 01/26/ | Office | Hepatology | Lake Dnenis MD | | | 2020 | Visit | | [address] | | | | | | [place] | | | | | | [address] | | | | | | [phone] | | | | | | | | +--------+---------+ + + + documented as of this encounter Visit Diagnoses Not on filedocumented in this encounter"
--- OUTSIDE RECORDS SUMMARY | ~2019-02-11 | XMS | Encounter Summary ---
Demographics + + + | Address | [address] | | | [place] [address] | + + + | Home Phone [...] + | Roxana Bo | ECON | [address] | | | | | [place] | | | | | [address] | | + + + + + Care Team Providers + +------+ + | Care Gun Welder Name | Role | Phone | [...] | 2010 | | Center at [facility] [address] | [address] | (Imuran and William) | | | | [address] | [place], [place] | | | | | Mailcode: OC8D | [address] | | | | | [facility] | [phone] | | | | | and Healing, | | | | | | [address] | | | | | | [place], [place] | | | | | | [address] | | | | | | [phone] | | | +--------+ + + + [...] Rogers | | | | | | [place], [place] | | | | | | [address] | | | | | | [phone] | | | | | | | | +--------+---------+ + + + documented as of this encounter Visit Diagnoses Not on filedocumented in this encounter"
--- OUTSIDE RECORDS SUMMARY | ~2019-02-11 | XMS | Encounter Summary ---
Demographics + + + | Address | [address] | | | [place] [address] | + + + | Home Phone [...] + | Roxana Bo | ECON | [address] | | | | | [place] | | | | | [address] | | + + + + + Care Team Providers + +------+ + | Care Director Of Student Affairs Name | Role | Phone | + [...] Refill Request | | 2012 | | [place] [address] [address] | [address] | (URSODIOL) | | | | [address] | [place], [place] | | | | | Mailcode: OC8D | [address] | | | | | [facility] | [phone] | | | | | and Healing, | | | | | | [address] | | | | | | [place], [place] | | | | | | [address] | | | | | | [phone] | | | +--------+--------+ + + + [...] | | | | | [place], [place] | | | | | | [address] | | | | | | [phone] | | | | | | | | +--------+---------+ + + + documented as of this encounter Visit Diagnoses Not on filedocumented in this encounter"
--- OUTSIDE RECORDS SUMMARY | ~2019-02-11 | XMS | Encounter Summary ---
Demographics + + + | Address | [address] | | | [place] [address] | + + + | Home Phone [...] + | Roxana Bo | ECON | [address] | | | | | [place] | | | | | [address] | | + + + + + Care Team Providers + +------+ + | Care Diabetes Solutions Specialist Name | Role | Phone | [...] | 2013 | on | Center at [facility] [address] | [address] | (Out side labs from | | | | [address] | [place], [place] | [facility] | | | | Mailcode: OC8D | [address] | 01/04/14.) | | | | [facility] | [phone] | | | | | and Healing, | | | | | | [address] | | | | | | [place], [place] | | | | | | [address] | | | | | | [phone] | | | +--------+ + + + [...] Rogers | | | | | | [place], [place] | | | | | | [address] | | | | | | [phone] | | | | | | | [...]
--- OUTSIDE RECORDS SUMMARY | ~2019-02-11 | XMS | Encounter Summary ---
Demographics + + + | Address | [address] | | | [place] [address] | + + + | Home Phone [...] + | Roxana Bo | ECON | [address] | | | | | [place] | | | | | [address] | | + + + + + Care Team Providers + +------+ + | Care Game Farm Supervisor Name | Role | Phone | [...] | | | Procedures | FAMILY | [place], [place] | | | | | CONSULT TO | MEDICINE | [address] | | | | | HEPATOLOGY | [address] | Phone: | | | | | liver bx | [address] | [phone] | | | | | | [place], | Fax: | | | | | | [place] [address] | [phone] | | | | | | Phone: | | | | | | | [phone] | | | | | | | Fax: | | | | | | | [phone] | | +--------+ + + + + + Encounter Details +--------+---------+ + + + | Date | Type | Department | Care Team | Description | +--------+---------+ + + + | 03/28/ | Office | Digestive Health | Lake Ontiveros MD | Autoimmune hepatitis | | 2010 | Visit | Center at [facility] [address] | [address] | (HCC); Primary | | | | [address] | [place], [place] | biliary cirrhosis | | | | Mailcode: OC8D | [address] | (HCC) | | | | [facility] | [phone] | | | | | and Healing, | | | | | | [address] | | | | | | [place], [place] | | | | | | [address] | | | | | | [phone] | | | +--------+---------+ + + + [...] 1 Applicator to affected area once daily. Jntzarnzaxc-Srnnfsstg-Hbm C-Mn (GLUCOSAMINE CHONDROITIN MAXSTR) 500-400 mg Oral Capsule Take 2 Tabs by mouth once daily. vqavsabwzyay-buggbbz-mxkteel-folic acid chewable 200-0.4 mg Oral Tablet, Chewable Take 2 Tabs by mouth once daily. rjnqpcsegctq-emgyggr-vmgs-lutein (CENTRUM SILVER ULTRA WOMEN'S) Oral Tablet Take [...] day 2) CMP, CBC, plts, diff, INR y6sjkkpb 3) RTC in 6 months Counseling Time: [...] Rogers | | | | | | [place], [place] | | | | | | [address] | | | | | | [phone] | | | | | | | | +--------+---------+ + + + documented as of this encounter Visit Diagnoses + + | Diagnosis | + + | Autoimmune hepatitis (HCC) Autoimmune hepatitis | + + | Primary biliary cirrhosis (HCC) Biliary cirrhosis | + + documented in this encounter
--- OUTSIDE RECORDS SUMMARY | ~2019-02-11 | XMS | Encounter Summary ---
Demographics + + + | Address | [address] | | | [place] [address] | + + + | Home Phone [...] + | Roxana Bo | ECON | [address] | | | | | [place] | | | | | [address] | | + + + + + Care Team Providers + +------+ + | Care Car Repossessor Name | Role | Phone | + [...] Medical Records | | 2017 | | [place] [address] [address] | [address] | Review | | | | [address] | [place], [place] | | | | | Mailcode: OC8D | [address] | | | | | [facility] | [phone] | | | | | and Healing, | | | | | | [address] | | | | | | [place], [place] | | | | | | [address] | | | | | | [phone] | | | +--------+ + + + [...] [address] | | | | | | [place], [place] | | | | | | [address] | | | | | | [phone] | | | | | | | | +--------+---------+ + + + documented as of this encounter Visit Diagnoses Not on filedocumented in this encounter"
--- OUTSIDE RECORDS SUMMARY | ~2019-02-11 | XMS | Encounter Summary ---
Demographics + + + | Address | [address] | | | [place] [address] | + + + | Home Phone [...] + | Roxana Bo | ECON | [address] | | | | | [place] | | | | | [address] | | + + + + + Care Team Providers + +------+ + | Care Screen Door Maker Name | Role | Phone | [...] Refill Request | | 2012 | | [place] [address] [address] | [address] | (URSODIOL) | | | | [address] | [place], [place] | | | | | Mailcode: OC8D | [address] | | | | | [facility] | [phone] | | | | | and Healing, | | | | | | [address] | | | | | | [place], [place] | | | | | | [address] | | | | | | [phone] | | | +--------+--------+ + + + [...] Rogers | | | | | | [place], [place] | | | | | | [address] | | | | | | [phone] | | | | | | | | +--------+---------+ + + + documented as of this encounter Visit Diagnoses Not on filedocumented in this encounter"
--- OUTSIDE RECORDS SUMMARY | ~2019-02-11 | XMS | Encounter Summary ---
Demographics + + + | Address | [address] | | | [place] [address] | + + + | Home Phone [...] + | Roxana Bo | ECON | [address] | | | | | [place] | | | | | [address] | | + + + + + Care Team Providers + +------+ + | Care Precision Instrument Maker Name | Role | Phone | [...] Test Results | | 2018 | | [place] [id number] | [address] | | | | | [address] | [place], [place] | | | | | Mailcode: [id number] | [id number] | | | | | [facility] | [phone] | | | | | [facility], | | | | | | [address] | | | | | | [place], [place] | | | | | | [address] | | | | | | [phone] | | | +--------+ + + + [...] [address] | | | | | | [place], [place] | | | | | | [address] | | | | | | [phone] | | | | | | | | +--------+---------+ + + + documented as of this encounter Visit Diagnoses Not on filedocumented in this encounter"
--- OUTSIDE RECORDS SUMMARY | ~2019-02-11 | XMS | Encounter Summary ---
Demographics + + + | Address | [address] | | | [place] [address] | + + + | Home Phone [...] + | Roxana Bo | ECON | [address] | | | | | [place] | | | | | [address] | | + + + + + Care Team Providers + +------+ + | Care Manager Process Improvement Name | Role | Phone | + [...] Density Scan | | 2009 | | [place] at [facility] [address] | [address] | | | | | [address] | [place], [place] | | | | | Mailcode: OC8D | [address] | | | | | [facility] | [phone] | | | | | and Healing, | | | | | | [address] | | | | | | [place], [place] | | | | | | [address] | | | | | | [phone] | | | +--------+ + + + [...] Rogers | | | | | | [place], [place] | | | | | | [address] | | | | | | [phone] | | | | | | | | +--------+---------+ + + + documented as of this encounter Visit Diagnoses Not on filedocumented in this encounter"
--- OUTSIDE RECORDS SUMMARY | ~2019-02-11 | XMS | Encounter Summary ---
Demographics + + + | Address | [address] | | | [place] [address] | + + + | Home Phone [...] + | Roxana Bo | ECON | [address] | | | | | [place] | | | | | [address] | | + + + + + [...] | | | | | | | [place], [place] | | | | | | | [address] | | | | | | | Phone: | | | | | | | [phone] | | | | | | | Fax: | | | | | | | [phone] | +--------+--------+ + + + + Encounter Details +--------+---------+ + + + | Date | Type | Department | Care Team | Description | +--------+---------+ + + + | 02/05/ | Office | Digestive Health | Lake Dennis MD | Autoimmune hepatitis | | 2015 | Visit | Center at [facility] [address] | [address] | (HCC) (Primary Dx); | | | | [address] | [place], [place] | Primary biliary | | | | Mailcode: OC8D | [address] | cirrhosis (HCC) | | | | [place] for [facility] | [phone] | | | | | and Healing, | | | | | | [address] | | | | | | [place], [place] | | | | | | [address] | | | | | | [phone] | | | +--------+---------+ + + + [...] 4 caps by mouth prior to procedure. avgavaseheyd-ecypwxt-nkqysfq-folic acid chewable 200-0.4 mg Oral Tablet, Chewable Take 2 Tabs by mouth once daily. chwyyjsmnixa-ohegvkd-ldcs-lutein (CENTRUM SILVER ULTRA WOMEN'S) Oral Tablet Take 1 Tab by mouth once daily. [place]-3 Fatty Acids-Vitamin E (FISH OIL) 1,000 mg [...] decompensation. Plan 1) cont current meds 2) w3pdkqap liver set, CBC, plts, diff 3) meds [...] Rogers | | | | | | [place], [place] | | | | | | [address] | | | | | | [phone] | | | | | | | | +--------+---------+ + + + documented as of this encounter Visit Diagnoses + + | Diagnosis | + + | Autoimmune hepatitis (HCC) - Primary Autoimmune hepatitis | + + | Primary biliary cirrhosis (HCC) Biliary cirrhosis | + + documented in this encounter
--- OUTSIDE RECORDS SUMMARY | ~2019-02-11 | XMS | Encounter Summary ---
Demographics + + + | Address | [address] | | | [place] [address] | + + + | Home Phone [...] + | Roxana Bo | ECON | [address] | | | | | [place] | | | | | [address] | | + + + + + Care Team Providers + +------+ + | Care Core Man Name | Role | Phone | + +------+ + | Ventura Carrasquillo MD | PCP | | + +------+ + Encounter Details +--------+ + + + + | Date | Type | Department | Care Team | Description | +--------+ + + + + | 09/13/ | Abstract | Digestive Health | Lake Dennis MD | | | 2019 | | [place] [address] [address] | [address] | | | | | [address] | [place], [place] | | | | | Mailcode: OC8D | [address] | | | | | [facility] [place] for [facility] | [phone] | | | | | and Healing, | | | | | | [address] | | | | | | [place], [place] | | | | | | [address] | | | | | | [phone] | | | +--------+ + + + [...] Rogers | | | | | | [place] | | | | | | [address] | | | | | | [phone] | | | | | | | | +--------+---------+ + + + documented as of this encounter Visit Diagnoses Not on filedocumented in this encounter"
--- OUTSIDE RECORDS SUMMARY | ~2019-02-11 | XMS | Encounter Summary ---
Demographics + + + | Address | [address] | | | [place] [address] | + + + | Home Phone [...] + | Roxana Bo | ECON | [address] | | | | | [place] | | | | | [address] | | + + + + + Care Team Providers + +------+ + | Care Artist'S Model Name | Role | Phone | + +------+ + | Ventura Carrasquillo MD | PCP | | + +------+ + Encounter Details +--------+ + + + + | Date | Type | Department | Care Team | Description | +--------+ + + + + | 07/01/ | Document-Sc | Health Information | Unknown . | | | 2013 | anned | Services [address] | | | | | | [address] | | | | | | Mailcode: OP17A | | | | | | [facility] | | | | | | [place], [place] | | | | | | [address] | | | | | | [phone] | | | +--------+ + + + [...] Rogers | | | | | | [place], [place] | | | | | | [address] | | | | | | [phone] | | | | | | | [...]
--- OUTSIDE RECORDS SUMMARY | ~2019-02-11 | XMS | Encounter Summary ---
Demographics + + + | Address | [address] | | | [place] [address] | + + + | Home Phone [...] + | Roxana Bo | ECON | [address] | | | | | [place] | | | | | [address] | | + + + + + Care Team Providers + +------+ + | Care Personnel Adviser Name | Role | Phone | + [...] Lab findings, | | 2008 | | [place] [address] [address] | [address] | teaching, guidance, | | | | [address] | [place], [place] | and counseling; | | | | Mailcode: OC8D | [address] | Medication | | | | [facility] | [phone] | management | | | | and Healing, | | | | | | [address] | | | | | | [facility] [place] | | | | | | [address] | | | | | | [phone] | | | +--------+ + + + [...] Rogers | | | | | | [place] | | | | | | [address] | | | | | | [phone] | | | | | | | | +--------+---------+ + + + documented as of this encounter Visit Diagnoses Not on filedocumented in this encounter"
--- OUTSIDE RECORDS SUMMARY | ~2019-02-11 | XMS | Encounter Summary ---
Demographics + + + | Address | [address] | | | [place] [address] | + + + | Home Phone [...] + | Roxana Bo | ECON | [address] | | | | | [place] | | | | | [address] | | + + + + + Care Team Providers + +------+ + | Care Color Strainer Name | Role | Phone | + [...] + + + + | 12/03/ | Tour Coordinator | Digestive Health | Lake Dennis MD | Autoimmune hepatitis | | 2010 | | Center at [facility] [address] | [address] | (HCC); Primary | | | | [address] | [place], [place] | biliary cirrhosis | | | | Mailcode: OC8D | [address] | (HCC) | | | | [facility] | [phone] | | | | | and Healing, | | | | | | [address] | | | | | | [place], [place] | | | | | | [address] | | | | | | [phone] | | | +--------+ + + + [...] Rogers | | | | | | [place], [place] | | | | | | [address] | | | | | | [phone] | | | | | | | | +--------+---------+ + + + documented as of this encounter Visit Diagnoses + + | Diagnosis | + + | Autoimmune hepatitis (HCC) Autoimmune hepatitis | + + | Primary biliary cirrhosis (HCC) Biliary cirrhosis | + + documented in this encounter"
--- OUTSIDE RECORDS SUMMARY | ~2019-02-11 | XMS | Clinical Summary ---
Demographics + + + | Address | [address] | | | [place] [address] | + + + | Home Phone | | + + + | Preferred Language | Unknown | + + + | Marital Status | | + + + | Moravian Affiliation | CAT | + + + | Race | White | + + + | Ethnic Group | Not or | + + + Author + + + | Author | [facility] | + + + | Organization | [facility] | + + + | Address | Unknown | + + + | Phone | Unavailable | + + + Support + + + + + | Name | Relationship | Address | Phone | + + + + + | Roxana Bo | ECON | [address] | | | | | [place] | | | | | [address] | | + + + + + Care Team Providers + +------+ + | Care Mechanical Adjuster Name | Role | Phone | + +------+ + | Ventura Carrasquillo MD | PCP | | + +------+ + Source Comments PAULA is fully live on both [facility] and [facility] InPatient.[facility] Allergies + + + + + + [...] | | + + + +---------+------+------+-------+ | [place]-3 Fatty | Take 2 Caps by mouth [...] [place] | | | | | | [address] | | | | | | [phone] | | | | | | | [...] - | [address] | [place], [place] | [phone] | | [place] | | | | [...] + + | [facility] - | [address] | [place] | [phone] | | [place] | | | | [...] | | | | | | | [address] | | + +--------+ +--------+ + +--------+ | [employer] MEDICARE | MODA | xxxxxxxxx | 12/03/19 | [phone] | [address] | [address] | | SUPPLEMENT | MEDICA | | 17-Pre | 4 | [id number] | | | | RE | | sent | | [place], | | | | SUPPLE | | | | [place] [address] | | | | MENT | | [...] Person | Self | [birth year] | [address] | | | al/Francisco | | 1950 | [phone] | [place] [address] | | | prasad | | | 1 (Home) | | + +--------+ +--------+ + + Advance Directives + + + + + | Type | Date Recorded | Patient | Explanation | | | | Computer Scientist | | + + + + + | Advance | | | | | Directives and | | | | | Living Will | | | | + + + + + | Power of | | | | | Digital Computer Systems Analyst | | | | + + + + +
--- OUTSIDE RECORDS SUMMARY | ~2019-02-11 | XMS | Encounter Summary ---
Demographics + + + | Address | [address] | | | [place] [address] | + + + | Home Phone [...] + | Roxana Bo | ECON | [address] | | | | | [place] | | | | | [address] | | + + + + + Care Team Providers + +------+ + | Care Sap Analyst Name | Role | Phone | + +------+ + | Ventura Carrasquillo MD | PCP | | + +------+ + Reason for Visit + + + | Reason | Comments | + + + | Blood Test Results | [facility] 01/02/15 Lab Results [...] Test Results | | 2014 | | [place] [address] [address] | [address] | ([facility] | | | | [address] | [place], [place] | 01/02/15 Lab Results | | | | Mailcode: OC8D | [id number] | (AST, alk phos, | | | | [facility] | [phone] | protein, alb, bili, | | | | and Healing, | | ALT, CBC)) | | | | [address] | | | | | | [place], [place] | | | | | | [address] | | | | | | [phone] | | | +--------+ + + + [...] | | 2020 | Visit | | [address] | | | | | | [place], [place] | | | | | | [address] | | | | | | [phone] | | | | | | | | +--------+---------+ + + + documented as of this encounter Visit Diagnoses Not on filedocumented in this encounter"
--- OUTSIDE RECORDS SUMMARY | ~2019-02-11 | XMS | Encounter Summary ---
Demographics + + + | Address | [address] | | | [place] [address] | + + + | Home Phone [...] + | Roxana Bo | ECON | [address] | | | | | [place] | | | | | [address] | | + + + + + Care Team Providers + +------+ + | Care Race Relations Professor Name | Role | Phone | [...] Medication | | 2016 | Encounter | [place] at [facility] [address] | [address] | question | | | | [address] | [place], [place] | | | | | Mailcode: OC8D | [address] | | | | | [place] [facility] | [phone] | | | | | and Healing, | | | | | | [address] | | | | | | [place], [place] | | | | | | [address] | | | | | | [phone] | | | +--------+ + + + [...] Rogers | | | | | | [place] | | | | | | [address] | | | | | | [phone] | | | | | | | | +--------+---------+ + + + documented as of this encounter Visit Diagnoses Not on filedocumented in this encounter"
--- OUTSIDE RECORDS SUMMARY | ~2019-02-11 | XMS | Encounter Summary ---
Demographics + + + | Address | [address] | | | [place] [address] | + + + | Home Phone [...] + | Roxana Bo | ECON | [address] | | | | | [place] | | | | | [address] | | + + + + + Care Team Providers + +------+ + | Care Administrative Asst Name | Role | Phone | + [...] | 2012 | Encounter | Center at [facility] [address] | [address] | draw | | | | [address] | [place], [place] | | | | | Mailcode: OC8D | [address] | | | | | [facility] | [phone] | | | | | and Healing, | | | | | | [address] | | | | | | [place], [place] | | | | | | [address] | | | | | | [phone] | | | +--------+ + + + [...] Rogers | | | | | | [place], [place] | | | | | | [address] | | | | | | [phone] | | | | | | | [...] [address] | [place], [place] | [phone] | | [place] | | | | [...] [address] | [place] | [phone] | | [place] | | | | + + + + + documented in this encounter Visit Diagnoses Not on filedocumented in this encounter"
--- OUTSIDE RECORDS SUMMARY | ~2019-02-11 | XMS | Encounter Summary ---
Demographics + + + | Address | [address] | | | [place] [address] | + + + | Home Phone [...] + | Roxana Bo | ECON | [address] | | | | | [place] | | | | | [address] | | + + + + + Care Team Providers + +------+ + | Care Senior Risk Analyst Name | Role | Phone | [...] Rogers | | | | | | [place], [place] | | | | | | [address] | | | | | | [phone] | | | | | | | | +--------+---------+ + + + documented as of this encounter Visit Diagnoses Not on filedocumented in this encounter"
--- OUTSIDE RECORDS SUMMARY | ~2019-02-11 | XMS | Encounter Summary ---
Demographics + + + | Address | [address] | | | [place] [address] | + + + | Home Phone [...] + | Roxana Bo | ECON | [address] | | | | | [place] | | | | | [address] | | + + + + + Care Team Providers + +------+ + | Care Improvement Coordinator Name | Role | Phone | [...] | 2013 | Encounter | Center at [facility] [address] | [address] | | | | | [address] | [place], [place] | | | | | Mailcode: OC8D | [address] | | | | | [facility] | [phone] | | | | | and Healing, | | | | | | [address] | | | | | | [place], [place] | | | | | | [address] | | | | | | [phone] | | | +--------+ + + + [...] Rogers | | | | | | [place] | | | | | | [address] | | | | | | [phone] | | | | | | | | +--------+---------+ + + + documented as of this encounter Visit Diagnoses Not on filedocumented in this encounter"
--- OUTSIDE RECORDS SUMMARY | ~2019-02-11 | XMS | Encounter Summary ---
Demographics + + + | Address | [address] | | | [place] [address] | + + + | Home Phone [...] + | Roxana Bo | ECON | [address] | | | | | [place] | | | | | [address] | | + + + + + Care Team Providers + +------+ + | Care Upholstery Department Supervisor Name | Role | Phone | + +------+ + | Ventura Carrasquillo MD | PCP | | + +------+ + Encounter Details +--------+ + + + + | Date | Type | Department | Care Team | Description | +--------+ + + + + | 07/06/ | Telephone | Digestive Health | Lake Dennis MD | | | 2011 | | [place] [address] [address] | [address] | | | | | [address] | [place], [place] | | | | | Mailcode: OC8D | [address] | | | | | [place] for [facility] | [phone] | | | | | and Healing, | | | | | | [address] | | | | | | [place], [place] | | | | | | [address] | | | | | | [phone] | | | +--------+ + + + [...] Rogers | | | | | | [place], [place] | | | | | | [address] | | | | | | [phone] | | | | | | | | +--------+---------+ + + + documented as of this encounter Visit Diagnoses Not on filedocumented in this encounter"
--- OUTSIDE RECORDS SUMMARY | ~2019-02-11 | XMS | Encounter Summary ---
Demographics + + + | Address | [address] | | | [place] [address] | + + + | Home Phone [...] + | Roxana Bo | ECON | [address] | | | | | [place] | | | | | [address] | | + + + + + Care Team Providers + +------+ + | Care Skiver Sock Linings Name | Role | Phone | + [...] + + + + | 10/05/ | Range Manager | Digestive Health | Lake Dennis MD | Autoimmune hepatitis | | 2015 | | [place] at [facility] [address] | [address] | (HCC) (Primary Dx); | | | | [address] | [place], [place] | Primary biliary | | | | Mailcode: OC8D | [address] | cirrhosis (HCC) | | | | [facility] | [phone] | | | | | and Healing, | | | | | | [address] | | | | | | [place], [place] | | | | | | [address] | | | | | | [phone] | | | +--------+ + + + [...] Rogers | | | | | | [place], [place] | | | | | | [address] | | | | | | [phone] | | | | | | | | +--------+---------+ + + + documented as of this encounter Visit Diagnoses + + | Diagnosis | + + | Autoimmune hepatitis (HCC) - Primary Autoimmune hepatitis | + + | Primary biliary cirrhosis (HCC) Biliary cirrhosis | + + documented in this encounter"
--- OUTSIDE RECORDS SUMMARY | ~2019-02-11 | XMS | Encounter Summary ---
Demographics + + + | Address | [address] | | | [place] [address] | + + + | Home Phone [...] + | Roxana oB | ECON | [address] | | | | | [place] | | | | | [address] | | + + + + + Care Team Providers + +------+ + | Care Vegetables Cook Name | Role | Phone | + [...] Refill Request | | 2013 | | [place] at [facility] [address] | [address] | (Azathioprine.) | | | | [address] | [place], [place] | | | | | Mailcode: OC8D | [address] | | | | | [facility] | [phone] | | | | | and Healing, | | | | | | [address] | | | | | | [place], [place] | | | | | | [address] | | | | | | [phone] | | | +--------+--------+ + + + [...] Rogers | | | | | | [place], [place] | | | | | | [address] | | | | | | [phone] | | | | | | | | +--------+---------+ + + + documented as of this encounter Visit Diagnoses Not on filedocumented in this encounter"
--- OUTSIDE RECORDS SUMMARY | ~2019-02-11 | XMS | Encounter Summary ---
Demographics + + + | Address | [address] | | | [place] [address] | + + + | Home Phone [...] + | Roxana Bo | ECON | [address] | | | | | [place] | | | | | [address] | | + + + + + Care Team Providers + +------+ + | Care Yardmaster Name | Role | Phone | + [...] | on | Center at [facility] [address] | [address] | (04/03/2011) | | | | [address] | [place], [place] | | | | | Mailcode: OC8Luba | [address] | | | | | [facility] | [phone] | | | | | and Healing, | | | | | | [address] | | | | | | [place], [place] | | | | | | [address] | | | | | | [phone] | | | +--------+ + + + [...] Rogers | | | | | | [place], [place] | | | | | | [address] | | | | | | [phone] | | | | | | | [...] [address] | [place] [address] | | | [place] | [address] | [address] | [place] [address] | | | [place] | [address] | [...] [address] | [place] [address] | | | [place] | [address] | | | + + + + + documented in this encounter Visit Diagnoses Not on filedocumented in this encounter"
--- OUTSIDE RECORDS SUMMARY | ~2019-02-11 | XMS | Encounter Summary ---
Demographics + + + | Address | [address] | | | [place] [address] | + + + | Home Phone [...] + | Roxana Bo | ECON | [address] | | | | | [place] | | | | | [address] | | + + + + + Care Team Providers + +------+ + | Care Osteopathic Medicine Teacher Name | Role | Phone | [...] | | | | [address] | [facility] [place] | | | | | Mailcode: OC8D | [address] | | | | | [place] for Health | [phone] | | | | | and Healing, | | | | | | [address] | | | | | | [place], [place] | | | | | | [address] | | | | | | [phone] | | | +--------+ + + + [...] Rogers | | | | | | [place] | | | | | | [address] | | | | | | [phone] | | | | | | | | +--------+---------+ + + + documented as of this encounter Visit Diagnoses Not on filedocumented in this encounter"
--- OUTSIDE RECORDS SUMMARY | ~2019-02-11 | XMS | Encounter Summary ---
Demographics + + + | Address | [address] | | | [place] [address] | + + + | Home Phone [...] + | Roxana Bo | ECON | [address] | | | | | [place] | | | | | [address] | | + + + + + Care Team Providers + +------+ + | Care Mat Tester Name | Role | Phone | [...] | | 2008 | | Center at [facility] [address] | [address] | teaching, guidance, | | | | [address] | [place], [place] | and counseling | | | | Mailcode: OC8D | [address] | | | | | [facility] | [phone] | | | | | and Healing, | | | | | | [address] | | | | | | [place], [place] | | | | | | [address] | | | | | | [phone] | | | +--------+ + + + [...] | | | | | | [place], [place] | | | | | | [address] | | | | | | [phone] | | | | | | | [...] | | | [place] | | + +--------+ + + + [...] + + | [facility] - | [address] | [place] | [phone] | | [place] | | | | [...] [address] | [place], [place] | [phone] | | [place] | | | | [...]
--- OUTSIDE RECORDS SUMMARY | ~2019-02-11 | XMS | Encounter Summary ---
Demographics + + + | Address | [address] | | | [place] [address] | + + + | Home Phone [...] + | Roxana Bo | ECON | [address] | | | | | [place] | | | | | [address] | | + + + + + Care Team Providers + +------+ + | Care Dowel Pointer Name | Role | Phone | + [...] Refill Request | | 2013 | | [place] at [facility] [address] | [address] | (Azathioprine.) | | | | [address] | [place], [place] | | | | | Mailcode: OC8D | [address] | | | | | [facility] | [phone] | | | | | and Healing, | | | | | | [address] | | | | | | [place], [place] | | | | | | [address] | | | | | | [phone] | | | +--------+--------+ + + + [...] [address] | | | | | | [place], [place] | | | | | | [address] | | | | | | [phone] | | | | | | | | +--------+---------+ + + + documented as of this encounter Visit Diagnoses Not on filedocumented in this encounter"
--- OUTSIDE RECORDS SUMMARY | ~2019-02-11 | XMS | Encounter Summary ---
Demographics + + + | Address | [address] | | | [place] [address] | + + + | Home Phone [...] + | Roxana Bo | ECON | [address] | | | | | [place] | | | | | [address] | | + + + + + Care Team Providers + +------+ + | Care Director Money Name | Role | Phone | + [...] | | | biliary | REFERRING | [place], [place] | | | | | cirrhosis | PROVIDER PER | [address] | | | | | Procedures | PT | Phone: | | | | | [place] | | [phone] | | | | | OFFICE/OUTPT | | Fax: | | | | | | | [phone] | | | | | VISIT,EST,LE | [...] | 2018 | Visit | Center at [facility] [address]85 | [address] | cholangitis (HCC) | | | | [address] | [place], [place] | (Primary Dx); | | | | Mailcode: OC8D | [address] | Autoimmune hepatitis | | | | [facility] | [phone] | (HCC) | | | | and [place], | | | | | | [address] | | | | | | [place], [place] | | | | | | [address] | | | | | | [phone] | | | +--------+---------+ + + + [...] 1,000 Units by mo uth once daily. gzeeutoigywv-fnwercw-rizh-lutein (CENTRUM SILVER ULTRA WOMEN'S) Oral Tablet Take 1 Tab by mouth once daily. [place]-3 Fatty Acids-Vitamin E (FISH OIL) 1,000 mg [...] [address] | | | | | | [place], [place] | | | | | | [address] | | | | | | [phone] | | | | | | | | +--------+---------+ + + + documented as of this encounter Visit Diagnoses + + | Diagnosis | + + | Primary biliary cholangitis (HCC) - Primary | + + | Autoimmune hepatitis (HCC) Autoimmune hepatitis | + + documented in this encounter
--- OUTSIDE RECORDS SUMMARY | ~2019-02-11 | XMS | Encounter Summary ---
Demographics + + + | Address | [address] | | | [place] [address] | + + + | Home Phone [...] + | Roxana Bo | ECON | [address] | | | | | [place] | | | | | [address] | | + + + + + Care Team Providers + +------+ + | Care Talent Acquisition Assistant Name | Role | Phone | [...] Medical Records | | 2013 | | [place] [id number] | [address] | Review ([facility] - | | | | [address] | [place], [place] | OUTSIDE LAB: AST, | | | | Mailcode: OC8D | [id number] | alkaline, bilirubin, | | | | [facility] | [phone] | protein, albumin, | | | | and Healing, | | ALT, CBC 04/03/2014) | | | | [address] | | | | | | [place], [place] | | | | | | [address] | | | | | | [phone] | | | +--------+ + + + [...] [address] | | | | | | [place], [place] | | | | | | [address] | | | | | | [phone] | | | | | | | | +--------+---------+ + + + documented as of this encounter Visit Diagnoses Not on filedocumented in this encounter"
--- OUTSIDE RECORDS SUMMARY | ~2019-02-11 | XMS | Encounter Summary ---
Demographics + + + | Address | [address] | | | [place] [address] | + + + | Home Phone [...] + | Roxana Bo | ECON | [address] | | | | | [place] | | | | | [address] | | + + + + + Care Team Providers + +------+ + | Care Poultry Killer Name | Role | Phone | + [...] | 2009 | on | Center at [facility] 3485 | [address] | (05/21/09, 04/19/09 | | | | [address] | [place], [place] | [facility]/ Ph# | | | | Mailcode: OC8D | [id number] | [phone]) | | | | [facility] | [phone] | | | | | and Healing, | | | | | | [address] | | | | | | [place], [place] | | | | | | [address] | | | | | | [phone] | | | +--------+ + + + [...] [address] | | | | | | [place], [place] | | | | | | [address] | | | | | | [phone] | | | | | | | [...] | | | (LAB) | | | [place] | | + +---------+ + + + [...] + + | [facility] - | [address] | [place], [place] | [phone] | | [place] | | | | [...] + + | [facility] - | [address] | [place], [place] | [phone] | | [place] | | | | [...] | | | (LAB) | | | [place] | | + +---------+ + + + [...] | [facility] - | [address] | [place], [place] | [phone] | | [place] | | | | + + + + + | [facility] - | | [place], [place] | | | [place] | | | | + + + + + documented in this encounter Visit Diagnoses Not on filedocumented in this encounter"
--- OUTSIDE RECORDS SUMMARY | ~2019-02-11 | XMS | Encounter Summary ---
Demographics + + + | Address | [address] | | | [place] [address] | + + + | Home Phone [...] + | Roxana Bo | ECON | [address] | | | | | [place] | | | | | [address] | | + + + + + Care Team Providers + +------+ + | Care Belt Cutter Name | Role | Phone | [...] Results | | 2016 | on | [place] at [facility] [address]85 | [address] | (Outside labs from | | | | [address] | [place], [place] | [facility] 01/03/16.) | | | | Mailcode: OC8D | [phone] | | | | | [facility] | [phone] | | | | | and Healing, | | | | | | [address] | | | | | | [place], [place] | | | | | | [address] | | | | | | [phone] | | | +--------+ + + + [...] [address] | | | | | | [place], [place] | | | | | | [address] | | | | | | [phone] | | | | | | | [...] [address] | [place] | [phone] | | [place] | | | | [...] [address] | [place] | [phone] | | [place] | | | | + + + + + documented in this encounter Visit Diagnoses Not on filedocumented in this encounter"
--- OUTSIDE RECORDS SUMMARY | ~2019-02-11 | XMS | Encounter Summary ---
Demographics + + + | Address | [address] | | | [place] [address] | + + + | Home Phone [...] + | Roxana Bo | ECON | [address] | | | | | [place] | | | | | [address] | | + + + + + Care Team Providers + +------+ + | Care Chemical Milling Processor Name | Role | Phone | + +------+ + | Ventura Carrasquillo MD | PCP | | + +------+ + Encounter Details +--------+ + + + + | Date | Type | Department | Care Team | Description | +--------+ + + + + | 01/04/ | Document-Sc | UNKNOWN DEPARTMENT | Unknown . | | | 2013 | anned | [address] | | | | | | [address] | | | | | | [place], [place] | | | | | | [address] | | | +--------+ + + + [...] | | 2020 | Visit | | [address] | | | | | | [place], [place] | | | | | | [address] | | | | | | [phone] | | | | | | | [...]
--- OUTSIDE RECORDS SUMMARY | ~2019-02-11 | XMS | Encounter Summary ---
Demographics + + + | Address | [address] | | | [place] [address] | + + + | Home Phone [...] + | Roxana Bo | ECON | [address] | | | | | [place] | | | | | [address] | | + + + + + Care Team Providers + +------+ + | Care Adult Protective Caseworker Name | Role | Phone | + [...] | 2013 | Encounter | Center at [facility] [address] | [address] | results | | | | [address] | [place], [place] | | | | | Mailcode: OC8D | [phone] | | | | | [facility] | [phone] | | | | | and Healing, | | | | | | [address] | | | | | | [place], [place] | | | | | | [address] | | | | | | [phone] | | | +--------+ + + + [...] 01/26/ | Office | Hepatology | Lake Denins MD | | | 2020 | Visit | | [address] | | | | | | [place], [place] | | | | | | [address] | | | | | | [phone] | | | | | | | [...] [address] | [place] | [phone] | | [place] | | | | [...] + + | [facility] - | [address] | [place], [place] | [phone] | | [place] | | | | + + + + + documented in this encounter Visit Diagnoses Not on filedocumented in this encounter"
--- OUTSIDE RECORDS SUMMARY | ~2019-02-11 | XMS | Encounter Summary ---
Demographics + + + | Address | [address] | | | [place] [address] | + + + | Home Phone [...] + | Roxana Bo | ECON | [address] | | | | | [place] | | | | | [address] | | + + + + + Care Team Providers + +------+ + | Care Accelerator Systems Director Name | Role | Phone | [...] | 2018 | Encounter | Center at [facility] [address]85 | [address] | Refill | | | | [address] | [place], [place] | | | | | Mailcode: OC8D | [phone] | | | | | [place] [facility] | [phone] | | | | | and Healing, | | | | | | [address] | | | | | | [place], [place] | | | | | | [address] | | | | | | [phone] | | | +--------+ + + + [...] | | | | | | [place], [place] | | | | | | [address] | | | | | | [phone] | | | | | | | | +--------+---------+ + + + documented as of this encounter Visit Diagnoses Not on filedocumented in this encounter"
--- OUTSIDE RECORDS SUMMARY | ~2019-02-11 | XMS | Encounter Summary ---
Demographics + + + | Address | [address] | | | [place] [address] | + + + | Home Phone [...] + | Roxana Bo | ECON | [address] | | | | | [place] | | | | | [address] | | + + + + + Care Team Providers + +------+ + | Care Theater Set Production Designer Name | Role | Phone | [...] | | | Procedures | FAMILY | [place], [place] | | | | | CONSULT TO | MEDICINE | [address] | | | | | HEPATOLOGY | [address] | Phone: | | | | | liver bx | [address] | [phone] | | | | | | [place], | Fax: | | | | | | [place] [address] | [phone] | | | | | | Phone: | | | | | | | [phone] | | | | | | | Fax: | | | | | | | [phone] | | +--------+ + + + + + Encounter Details +--------+---------+ + + + | Date | Type | Department | Care Team | Description | +--------+---------+ + + + | 10/03/ | Office | Digestive Health | Lake Dennis MD | Autoimmune hepatitis | | 2012 | Visit | Center at [facility] [address] | [address] | (HCC); Primary | | | | [address] | [place], [place] | biliary cirrhosis | | | | Mailcode: OC8D | [address] | (HCC) | | | | [facility] | [phone] | | | | | and Healing, | | | | | | [address] | | | | | | [place], [place] | | | | | | [address] | | | | | | [phone] | | | +--------+---------+ + + + [...] daily. Administer after meals. 30 Tab 11 fujcskolyqyt-pplxaxx-keayeob-folic acid chewable 200-0.4 mg Oral Tablet, Chewable Take 2 Tabs by mouth once daily. otdsdysdbagy-ftqsiay-rmff-lutein (CENTRUM SILVER ULTRA WOMEN'S) Oral Tablet Take [...] recommendations. Roddy Rivera MD Fellow, Gastroenterology/Hepatology pgr [phone] documented in this encounter Plan of Treatment +--------+---------+ + + + | Date | Type | Specialty | Care Team | Description | +--------+---------+ + + + | 01/26/ | Office | Hepatology | Lake Dennis MD | | | 2019 | Visit | | [address] | | | | | | [place], [place] | | | | | | [address] | | | | | | [phone] | | | | | | | | +--------+---------+ + + + documented as of this encounter Visit Diagnoses + + | Diagnosis | + + | Autoimmune hepatitis (HCC) Autoimmune hepatitis | + + | Primary biliary cirrhosis (HCC) Biliary cirrhosis | + + documented in this encounter
--- OUTSIDE RECORDS SUMMARY | ~2019-02-11 | XMS | Encounter Summary ---
Demographics + + + | Address | [address] | | | [place] [address] | + + + | Home Phone [...] + | Roxana Bo | ECON | [address] | | | | | [place] | | | | | [address] | | + + + + + Care Team Providers + +------+ + | Care Bereavement Program Coordinator Name | Role | Phone [...] | 2017 | on | Center at [facility] [address] | [address] | (Outside labs from | | | | [address] | [place], [place] | [facility] 09/08/16) | | | | Mailcode: OC8D | [address] | | | | | [facility] | [phone] | | | | | and Joshua, | | | | | | [address] | | | | | | [place], [place] | | | | | | [address] | | | | | | [phone] | | | +--------+ + + + [...] | | 2019 | Visit | | [address] | | | | | | [place], [place] | | | | | | [address] | | | | | | [phone] | | | | | | | [...] + + | [facility] - | [address] | [place] | [phone] | | [place] | | | | [...] + + | [facility] - | [address] | [place] | [phone] | | [place] | | | | + + + + + documented in this encounter Visit Diagnoses Not on filedocumented in this encounter"
--- OUTSIDE RECORDS SUMMARY | ~2019-02-11 | XMS | Encounter Summary ---
Demographics + + + | Address | [address] | | | [place] [address] | + + + | Home Phone [...] + | Roxana Bo | ECON | [address] | | | | | [place] | | | | | [address] | | + + + + + Care Team Providers + +------+ + | Care Program Management Analyst Name | Role | Phone | + +------+ + | Ventura Carrasquillo MD | PCP | | + +------+ + Encounter Details +--------+ + + + + | Date | Type | Department | Care Team | Description | +--------+ + + + + | 01/25/ | Telephone | Digestive Health | Lake Dennis MD | | | 2018 | | [place] [address] [address] | [address] | | | | | [address] | [place], [place] | | | | | Mailcode: OC8D | [address] | | | | | [place] for [facility] | [phone] | | | | | and Healing, | | | | | | [address] | | | | | | [place], [place] | | | | | | [address] | | | | | | [phone] | | | +--------+ + + + [...] Rogers | | | | | | [place], [place] | | | | | | [address] | | | | | | [phone] | | | | | | | | +--------+---------+ + + + + +------+--------+ + + | Name | Type | Priori | Associated Diagnoses | Order Schedule | | | | ty | | | + +------+--------+ + + | CBC, WITH | Lab | Routin | Autoimmune | Every 16 weeks for 5 | | DIFFERENTIAL | | e | hepatitis (HCC) | Occurrences | | | | | Primary biliary | starting 01/25/2018 | | | | | cholangitis (HCC) | until 03/27/2019 | + +------+--------+ + + | COMPLETE METABOLIC | Lab | Routin | Autoimmune | Every 16 weeks for 5 | | SET | | e | hepatitis (HCC) | Occurrences | | (NA,K,CL,CO2,BUN,CRE | | | Primary biliary | starting 01/25/2018 | | AT,GLUC,CA,AST,ALT,B | | | cholangitis (HCC) | until 03/27/2019 | | JONH TOTAL,ALK | | | | | | PHOS,ALB,PROT TOTAL) | | | | | + +------+--------+ + + documented as of this encounter Visit Diagnoses + + | Diagnosis | + + | Autoimmune hepatitis (HCC) - Primary Autoimmune hepatitis | + + | Primary biliary cholangitis (HCC) | + + documented in this encounter"
--- OUTSIDE RECORDS SUMMARY | ~2019-02-11 | XMS | Encounter Summary ---
Demographics + + + | Address | [address] | | | [place] [address] | + + + | Home Phone [...] + | Roxana Bo | ECON | [address] | | | | | [place] | | | | | [address] | | + + + + + Care Team Providers + +------+ + | Care Kettle Hand Name | Role | Phone | [...] | 2013 | Encounter | Center at [facility] [address] | [address] | results | | | | [address] | [place], [place] | | | | | Mailcode: OC8D | [address] | | | | | [facility] | [phone] | | | | | and Healing, | | | | | | [address] | | | | | | [place], [place] | | | | | | [address] | | | | | | [phone] | | | +--------+ + + + [...] [address] | | | | | | [place], [place] | | | | | | [address] | | | | | | [phone] | | | | | | | [...] [address] | [place] | [phone] | | [place] | | | | [...] + + | [facility] - | [address] | [place], [place] | [phone] | | [place] | | | | + + + + + documented in this encounter Visit Diagnoses Not on filedocumented in this encounter"
--- OUTSIDE RECORDS SUMMARY | ~2019-02-11 | XMS | Encounter Summary ---
Demographics + + + | Address | [address] | | | [place] [address] | + + + | Home Phone [...] + | Roxana Bo | ECON | [address] | | | | | [place] | | | | | [address] | | + + + + + Care Team Providers + +------+ + | Care Professor Of Sport Management Name | Role | Phone | [...] + + + + | 02/10/ | Electronic Masking System Operator | Digestive Health | Lake Dennis MD | Autoimmune hepatitis | | 2016 | | Center [place] [address] [address] | [address] | (HCC) (Primary Dx) | | | | [address] | [place], [place] | | | | | Mailcode: OC8D | [address] | | | | | [facility] | [phone] | | | | | and Healing, | | | | | | [address] | | | | | | [place], [place] | | | | | | [address] | | | | | | [phone] | | | +--------+ + + + [...] [address] | | | | | | [place], [place] | | | | | | [address] | | | | | | [phone] | | | | | | | | +--------+---------+ + + + documented as of this encounter Visit Diagnoses + + | Diagnosis | + + | Autoimmune hepatitis (HCC) - Primary Autoimmune hepatitis | + + documented in this encounter"
--- OUTSIDE RECORDS SUMMARY | ~2019-02-11 | XMS | Encounter Summary ---
Demographics + + + | Address | [address] | | | [place] [address] | + + + | Home Phone [...] + | Roxana Bo | ECON | [address] | | | | | [place] | | | | | [address] | | + + + + + Care Team Providers + +------+ + | Care National Account Manager Name | Role | Phone | [...] | 2019 | Encounter | Center at [facility] [address] | [address] | Results | | | | [address] | [place], [place] | | | | | Mailcode: OC8D | [address] | | | | | [place] [facility] | [phone] | | | | | and Healing, | | | | | | [address] | | | | | | [place], [place] | | | | | | [address] | | | | | | [phone] | | | +--------+ + + + [...] [address] | | | | | | [place], [place] | | | | | | [address] | | | | | | [phone] | | | | | | | [...] + + | [facility] - | [address] | [place] | [phone] | | [place] | | | | [...] + + | [facility] - | [address] | [place], [place] | [phone] | | [place] | | | | + + + + + documented in this encounter Visit Diagnoses Not on filedocumented in this encounter"
--- OUTSIDE RECORDS SUMMARY | ~2019-02-11 | XMS | Encounter Summary ---
Demographics + + + | Address | [address] | | | [place] [address] | + + + | Home Phone [...] + | Roxana Bo | ECON | [address] | | | | | [place] | | | | | [address] | | + + + + + Care Team Providers + +------+ + | Care Acting Instructor Name | Role | Phone | [...] | 2013 | Encounter | Center at [facility] [address] | [address] | | | | | [address] | [place], [place] | | | | | Mailcode: OC8D | [address] | | | | | [facility] | [phone] | | | | | and Healing, | | | | | | [address] | | | | | | [place], [place] | | | | | | [address] | | | | | | [phone] | | | +--------+ + + + [...] [place] | | | | | | [address] | | | | | | [phone] | | | | | | | | +--------+---------+ + + + documented as of this encounter Visit Diagnoses Not on filedocumented in this encounter"
--- OUTSIDE RECORDS SUMMARY | ~2019-02-11 | XMS | Encounter Summary ---
Demographics + + + | Address | [address] | | | [place] [address] | + + + | Home Phone [...] + | Roxana Bo | ECON | [address] | | | | | [place] | | | | | [address] | | + + + + + Care Team Providers + +------+ + | Care Production Operations Engineer Name | Role | Phone | [...] | 2010 | on | Center at [facility] [address]85 | [address] | (10/04/2009) | | | | [address] | [place], [place] | | | | | Mailcode: OCLuba | [address] | | | | | [facility] | [phone] | | | | | and Healing, | | | | | | [address] | | | | | | [place], [place] | | | | | | [address] | | | | | | [phone] | | | +--------+ + + + [...] [address] | | | | | | [place], [place] | | | | | | [address] | | | | | | [phone] | | | | | | | [...] [address] | [place] [address] | | | [place] | [address] | [address] | [place] [address] | | | [place] | [address] | [...] [address] | [place] [address] | | | [place] | [address] | | | + + + + + documented in this encounter Visit Diagnoses Not on filedocumented in this encounter"
--- OUTSIDE RECORDS SUMMARY | ~2019-02-11 | XMS | Encounter Summary ---
Demographics + + + | Address | [address] | | | [place] [address] | + + + | Home Phone [...] + | Roxana Bo | ECON | [address] | | | | | [place] | | | | | [address] | | + + + + + Care Team Providers + +------+ + | Care Tenon Machine Operator Name | Role | Phone [...] | | 2012 | anned | Services [address] | [phone] | | | | | [address] | | | | | | Mailcode: [id number] | | | | | | [facility] | | | | | | [place], [place] | | | | | | [address] | | | | | | [phone] | | | +--------+ + + + [...] [address] | | | | | | [place], [place] | | | | | | [address] | | | | | | [phone] | | | | | | | [...]
--- OUTSIDE RECORDS SUMMARY | ~2019-02-11 | XMS | Encounter Summary ---
Demographics + + + | Address | [address] | | | [place] [address] | + + + | Home Phone [...] + | Roxana Bo | ECON | [address] | | | | | [place] | | | | | [address] | | + + + + + Care Team Providers + +------+ + | Care Day Habilitation Supervisor Name | Role | Phone | [...] Medical Records | | 2019 | | [place] at [facility] [address] | [address] | Review | | | | [address] | [place], [place] | | | | | Mailcode: OC8D | [address] | | | | | [facility] | [phone] | | | | | and Healing, | | | | | | [address] | | | | | | [place], [place] | | | | | | [address] | | | | | | [phone] | | | +--------+ + + + [...] [address] | | | | | | [place], [place] | | | | | | [address] | | | | | | [phone] | | | | | | | | +--------+---------+ + + + documented as of this encounter Visit Diagnoses Not on filedocumented in this encounter"
--- OUTSIDE RECORDS SUMMARY | ~2019-02-11 | XMS | Encounter Summary ---
Demographics + + + | Address | [address] | | | [place] [address] | + + + | Home Phone [...] + | Roxana Bo | ECON | [address] | | | | | [place] | | | | | [address] | | + + + + + Care Team Providers + +------+ + | Care Mental Health Social Worker Name | Role | Phone | [...] | 2010 | on | Center at [facility] [address] | [address] | (07/02/2010) | | | | [address] | [place], [place] | | | | | Mailcode: OCLuba | [address] | | | | | [facility] | [phone] | | | | | and Healing, | | | | | | [address] | | | | | | [place], [place] | | | | | | [address] | | | | | | [phone] | | | +--------+ + + + [...] [address] | | | | | | [place], [place] | | | | | | [address] | | | | | | [phone] | | | | | | | | +--------+---------+ + + + documented as of this encounter Visit Diagnoses Not on filedocumented in this encounter"
--- OUTSIDE RECORDS SUMMARY | ~2019-02-11 | XMS | Encounter Summary ---
Demographics + + + | Address | [address] | | | [place] [address] | + + + | Home Phone [...] + | Roxana Bo | ECON | [address] | | | | | [place] | | | | | [address] | | + + + + + Care Team Providers + +------+ + | Care Message Clerk Name | Role | Phone | [...] Medical Records | | 2019 | | [place] at [facility] [address] | [address] | Review | | | | [address] | [place], [place] | | | | | Mailcode: OC8D | [address] | | | | | [facility] | [phone] | | | | | and Healing, | | | | | | [address] | | | | | | [place], [place] | | | | | | [address] | | | | | | [phone] | | | +--------+ + + + [...] | 01/26/ | Office | Hepatology | Lkae Dennis MD | | | 2020 | Visit | | [address] | | | | | | [place], [place] | | | | | | [address] | | | | | | [phone] | | | | | | | | +--------+---------+ + + + documented as of this encounter Visit Diagnoses Not on filedocumented in this encounter"
--- OUTSIDE RECORDS SUMMARY | ~2019-02-11 | XMS | Encounter Summary ---
Demographics + + + | Address | [address] | | | [place] [address] | + + + | Home Phone [...] + | Roxana Bo | ECON | [address] | | | | | [place] | | | | | [address] | | + + + + + Care Team Providers + +------+ + | Care Corporation Secretary Name | Role | Phone | + +------+ + | Ventura Carrasquillo MD | PCP | | + +------+ + Encounter Details +--------+ + + + + | Date | Type | Department | Care Team | Description | +--------+ + + + + | 04/05/ | Document-Sc | UNKNOWN DEPARTMENT | Unknown . | | | 2012 | anned | [address] | | | | | | [address] | | | | | | [place], [place] | | | | | | [address] | | | +--------+ + + + [...] | | 2020 | Visit | | [address] | | | | | | [place], [place] | | | | | | [address] | | | | | | [phone] | | | | | | | [...]
--- OUTSIDE RECORDS SUMMARY | ~2019-02-11 | XMS | Encounter Summary ---
Demographics + + + | Address | [address] | | | [place] [address] | + + + | Home Phone [...] + | Roxana Bo | ECON | [address] | | | | | [place] | | | | | [address] | | + + + + + Care Team Providers + +------+ + | Care Multicraft Operator Name | Role | Phone | + +------+ + | Ventura Carrasquillo MD | PCP | | + +------+ + Encounter Details +--------+ + + + + | Date | Type | Department | Care Team | Description | +--------+ + + + + | 03/05/ | Documentati | Digestive Health | Lake Dennis MD | | | 2011 | on | [place] at [facility] [address]125 | [address] | | | | [address] | [place], [place] | | | | | Mailcode: OC8D | [address] | | | | | [facility] | [phone] | | | | | and Healing, | | | | | | [address] | | | | | | [place], [place] | | | | | | [address] | | | | | | [phone] | | | +--------+ + + + [...] [address] | | | | | | [facility] [place] | | | | | | [address] | | | | | | [phone] | | | | | | | [...] [address] | [place] [address] | | | [place] | [address] | [address] | [place] [address] | | | [place] | [address] | [...] [address] | [place] [address] | | | [place] | 120 | | | + + + + + documented in this encounter Visit Diagnoses Not on filedocumented in this encounter"
--- OUTSIDE RECORDS SUMMARY | ~2019-02-11 | XMS | Encounter Summary ---
Demographics + + + | Address | [address] | | | [place] [address] | + + + | Home Phone [...] + | Roxana Bo | ECON | [address] | | | | | [place] | | | | | [address] | | + + + + + Care Team Providers + +------+ + | Care Pecan Mallow Dipper Name | Role | Phone | [...] | 2012 | Visit | Center at [facility] [address] | [address] | cirrhosis (HCC) | | | | [address] | [place], [place] | (Primary Dx); | | | | Mailcode: OC8D | [address] | Autoimmune hepatitis | | | | [facility] | [phone] | (HCC) | | | | and Healing, | | | | | | [address] | | | | | | [place], [place] | | | | | | [address] | | | | | | [phone] | | | +--------+---------+ + + + [...] 4 caps by mouth prior to procedure. hfrbpbmxuqvi-fmosnnk-cxqixfl-folic acid chewable 200-0.4 mg Oral Tablet, Chewable Take 2 Tabs by mouth once daily. bhwjzctycasx-oxsvqsb-tibw-lutein (CENTRUM SILVER ULTRA WOMEN'S) Oral Tablet Take 1 Tab by mouth once daily. [place]-3 Fatty Acids-Vitamin E (FISH OIL) 1,000 mg [...] rsodiol. Plan 1) cont current meds 2) [id number] CMP, CBC, plts, diff, 3) RTC in [...] [address] | | | | | | [place], [place] | | | | | | [address] | | | | | | [phone] | | | | | | | | +--------+---------+ + + + documented as of this encounter Visit Diagnoses + + | Diagnosis | + + | Primary biliary cirrhosis (HCC) - Primary Biliary cirrhosis | + + | Autoimmune hepatitis (HCC) Autoimmune hepatitis | + + documented in this encounter
--- OUTSIDE RECORDS SUMMARY | ~2019-02-11 | XMS | Encounter Summary ---
Demographics + + + | Address | [address] | | | [place] [address] | + + + | Home Phone [...] + | Roxana Bo | ECON | [address] | | | | | [place] | | | | | [address] | | + + + + + Care Team Providers + +------+ + | Care Chief Dispatcher Service Name | Role | Phone | + [...] | 2012 | on | Center at [facility] [address] | [address] | order request.) | | | | [address] | [place], [place] | | | | | Mailcode: [place]CLuba | [address] | | | | | [facility] | [phone] | | | | | and Healing, | | | | | | [address] | | | | | | [place], [place] | | | | | | [address] | | | | | | [phone] | | | +--------+ + + + [...] Rogers | | | | | | [place], [place] | | | | | | [address] | | | | | | [phone] | | | | | | | | +--------+---------+ + + + documented as of this encounter Visit Diagnoses Not on filedocumented in this encounter"
--- OUTSIDE RECORDS SUMMARY | ~2019-02-11 | XMS | Encounter Summary ---
Demographics + + + | Address | [address] | | | [place] [address] | + + + | Home Phone [...] + | Roxana Bo | ECON | [address] | | | | | [place] | | | | | [address] | | + + + + + Care Team Providers + +------+ + | Care Section Weaver Name | Role | Phone | [...] | Medication | | 2009 | | [place] at [facility] [address] | [address] | management | | | | [address] | [place], [place] | | | | | Mailcode: OC8D | [address] | | | | | [facility] | [phone] | | | | | and Healing, | | | | | | [address] | | | | | | [place], [place] | | | | | | [address] | | | | | | [phone] | | | +--------+ + + + [...] Rogers | | | | | | [place], [place] | | | | | | [address] | | | | | | [phone] | | | | | | | | +--------+---------+ + + + documented as of this encounter Visit Diagnoses Not on filedocumented in this encounter"
--- OUTSIDE RECORDS SUMMARY | ~2019-02-11 | XMS | Encounter Summary ---
Demographics + + + | Address | [address] | | | [place] [address] | + + + | Home Phone [...] + | Roxana Bo | ECON | [address] | | | | | [place] | | | | | [address] | | + + + + + Care Team Providers + +------+ + | Care Power Cutting Machine Operator Name | Role | Phone | + +------+ + | Ventura Carrasquillo MD | PCP | | + +------+ + Encounter Details +--------+ + + + + | Date | Type | Department | Care Team | Description | +--------+ + + + + | 04/07/ | Documentati | Digestive Health | Clinic, | | | 2010 | on | [place] at [facility] [address] | Gastroenterology | | | | | [address] | | | | | | Mailcode: OC8D | | | | | | [place] for [facility] | | | | | | and Healing, | | | | | | [address] | | | | | | [place], [place] | | | | | | [address] | | | | | | [phone] | | | +--------+ + + + [...] [place] | | | | | | [address] | | | | | | [phone] | | | | | | | | +--------+---------+ + + + documented as of this encounter Visit Diagnoses Not on filedocumented in this encounter"
--- OUTSIDE RECORDS SUMMARY | ~2019-02-11 | XMS | Encounter Summary ---
Demographics + + + | Address | [address] | | | [place] [address] | + + + | Home Phone [...] + | Roxana Bo | ECON | [address] | | | | | [place] | | | | | [address] | | + + + + + Care Team Providers + +------+ + | Care Brim Curler Name | Role | Phone | + +------+ + | Ventura Carrasquillo MD | PCP | | + +------+ + Encounter Details +--------+ + + + + | Date | Type | Department | Care Team | Description | +--------+ + + + + | 07/06/ | Telephone | Digestive Health | Lake Dennis MD | | | 2011 | | [place] [address] [address] | [address] | | | | | [address] | [place], [place] | | | | | Mailcode: OC8D | [address] | | | | | [place] for [facility] | [phone] | | | | | and Healing, | | | | | | [address] | | | | | | [place], [place] | | | | | | [address] | | | | | | [phone] | | | +--------+ + + + [...] Rogers | | | | | | [place], [place] | | | | | | [address] | | | | | | [phone] | | | | | | | | +--------+---------+ + + + documented as of this encounter Visit Diagnoses Not on filedocumented in this encounter"
--- OUTSIDE RECORDS SUMMARY | ~2019-02-11 | XMS | Encounter Summary ---
Demographics + + + | Address | [address] | | | [place] [address] | + + + | Home Phone [...] + | Roxana Bo | ECON | [address] | | | | | [place] | | | | | [address] | | + + + + + Care Team Providers + +------+ + | Care Test Data Developer Name | Role | Phone | [...] | | | biliary | REFERRING | [place], [place] | | | | | cirrhosis | PROVIDER PER | [address] | | | | | Procedures | PT | Phone: | | | | | [place] | | [phone] | | | | | OFFICE/OUTPT | | Fax: | | | | | | | [phone] | | | | | VISIT,EST,LE | [...] | 2017 | Visit | Center at [facility] [address] | [address] | cirrhosis (HCC) | | | | [address] | [place], [place] | (Primary Dx); | | | | Mailcode: OC8D | [address] | Autoimmune hepatitis | | | | [facility] | [phone] | (HCC) | | | | and Healing, | | | | | | [address] | | | | | | [place], [place] | | | | | | [address] | | | | | | [phone] | | | +--------+---------+ + + + [...] unit oral tablet Take 1,000 Units by [facility] once daily. biaxdsopvsml-dizqead-mnlk-lutein (CENTRUM SILVER ULTRA WOMEN'S) Oral Tablet Take 1 Tab by mouth once daily. Creswell-3 Fatty Acids-Vitamin E (FISH OIL) 1,000 mg [...] 1) cont current meds 2) CMP, CBC [id number] 3) RTC in 1 yr Counseling Time: [...] Rogers | | | | | | [place], [place] | | | | | | [address] | | | | | | [phone] | | | | | | | | +--------+---------+ + + + documented as of this encounter Visit Diagnoses + + | Diagnosis | + + | Primary biliary cirrhosis (HCC) - Primary Biliary cirrhosis | + + | Autoimmune hepatitis (HCC) Autoimmune hepatitis | + + documented in this encounter
--- OUTSIDE RECORDS SUMMARY | ~2019-02-11 | XMS | Encounter Summary ---
Demographics + + + | Address | [address] | | | [place] [address] | + + + | Home Phone [...] + | Roxana Bo | ECON | [address] | | | | | [place] | | | | | [address] | | + + + + + Care Team Providers + +------+ + | Care Clinical Lab Scientist Name | Role | Phone | [...] Test Results | | 2016 | | [place] at [facility] [address] | [address] | | | | | [address] | [place], [place] | | | | | Mailcode: OC8D | [address] | | | | | [facility] | [phone] | | | | | and Healing, | | | | | | [address] | | | | | | [place], [place] | | | | | | [address] | | | | | | [phone] | | | +--------+ + + + [...] Rogers | | | | | | [place], [place] | | | | | | [address] | | | | | | [phone] | | | | | | | | +--------+---------+ + + + documented as of this encounter Visit Diagnoses Not on filedocumented in this encounter"
--- OUTSIDE RECORDS SUMMARY | ~2019-02-11 | XMS | Encounter Summary ---
Demographics + + + | Address | [address] | | | [place] [address] | + + + | Home Phone [...] + | Roxana Bo | ECON | [address] | | | | | [place] | | | | | [address] | | + + + + + Care Team Providers + +------+ + | Care Truck Driver Name | Role | Phone [...] Medication Question | | 2017 | | [place] [address] [address] | [address] | | | | | [address] | [place], [place] | | | | | Mailcode: OC8D | [address] | | | | | [facility] | [phone] | | | | | and Healing, | | | | | | [address] | | | | | | [place], [place] | | | | | | [address] | | | | | | [phone] | | | +--------+ + + + [...] Rogers | | | | | | [place], [place] | | | | | | [address] | | | | | | [phone] | | | | | | | | +--------+---------+ + + + documented as of this encounter Visit Diagnoses Not on filedocumented in this encounter"
--- OUTSIDE RECORDS SUMMARY | ~2019-02-11 | XMS | Encounter Summary ---
Demographics + + + | Address | [address] | | | [place] [address] | + + + | Home Phone [...] + | Roxana Bo | ECON | [address] | | | | | [place] | | | | | [address] | | + + + + + Care Team Providers + +------+ + | Care Ab Initio Etl Developer Name | Role | Phone | [...] Results | | 2013 | Encounter | [place] at [facility] [address] | [address] | | | | | [address] | [place], [place] | | | | | Mailcode: OC8D | [address] | | | | | [facility] | [phone] | | | | | and Healing, | | | | | | Building [address] | | | | | | [place], [place] | | | | | | [address] | | | | | | [phone] | | | +--------+ + + + [...] [place] | | | | | | [address] | | | | | | [phone] | | | | | | | | +--------+---------+ + + + documented as of this encounter Visit Diagnoses Not on filedocumented in this encounter"
--- OUTSIDE RECORDS SUMMARY | ~2019-02-11 | XMS | Encounter Summary ---
Demographics + + + | Address | [address] | | | [place] [address] | + + + | Home Phone [...] + | Roxana Bo | ECON | [address] | | | | | [place] | | | | | [address] | | + + + + + Care Team Providers + +------+ + | Care Anodiser Name | Role | Phone | + +------+ + | Ventura Crarasquillo MD | PCP | | + +------+ [...] | Medication | | 2009 | | [place] at [facility] [address] | [address] | management | | | | [address] | [place], [place] | | | | | Mailcode: OC8D | [address] | | | | | [facility] | [phone] | | | | | and Healing, | | | | | | [address] | | | | | | [place], [place] | | | | | | [address] | | | | | | [phone] | | | +--------+ + + + [...] Rogers | | | | | | [place], [place] | | | | | | [address] | | | | | | [phone] | | | | | | | | +--------+---------+ + + + documented as of this encounter Visit Diagnoses Not on filedocumented in this encounter"
--- OUTSIDE RECORDS SUMMARY | ~2019-02-11 | XMS | Encounter Summary ---
Demographics + + + | Address | [address] | | | [place] [address] | + + + | Home Phone [...] + | Roxana Bo | ECON | [address] | | | | | [place] | | | | | [address] | | + + + + + Care Team Providers + +------+ + | Care Shoelace Tipping Machine Operator Name | Role | Phone [...] | 2012 | on | Center at [facility] [address] | [address] | order request.) | | | | [address] | [place], [place] | | | | | Mailcode: OCLuba | [address] | | | | | [facility] | [phone] | | | | | and Healing, | | | | | | [address] | | | | | | [place], [place] | | | | | | [address] | | | | | | [phone] | | | +--------+ + + + [...] Rogers | | | | | | [place], [place] | | | | | | [address] | | | | | | [phone] | | | | | | | | +--------+---------+ + + + documented as of this encounter Visit Diagnoses Not on filedocumented in this encounter"
--- OUTSIDE RECORDS SUMMARY | ~2019-02-11 | XMS | Encounter Summary ---
Demographics + + + | Address | [address] | | | [place] [address] | + + + | Home Phone [...] + | Roxana Bo | ECON | [address] | | | | | [place] | | | | | [address] | | + + + + + Care Team Providers + +------+ + | Care Want Ad Supervisor Name | Role | Phone | + +------+ + | Ventura Carrasquillo MD | PCP | | + +------+ + Encounter Details +--------+ + + + + | Date | Type | Department | Care Team | Description | +--------+ + + + + | 01/03/ | Abstract | Digestive Health | Lake Dennis MD | | | 2010 | | [place] [address] [address] | [address] | | | | | [address] | [place], [place] | | | | | Mailcode: OC8D | [address] | | | | | [facility] | [phone] | | | | | and Healing, | | | | | | [address] | | | | | | [place], [place] | | | | | | [address] | | | | | | [phone] | | | +--------+ + + + [...] Rogers | | | | | | [place] | | | | | | [address] | | | | | | [phone] | | | | | | | | +--------+---------+ + + + documented as of this encounter Visit Diagnoses Not on filedocumented in this encounter"
--- OUTSIDE RECORDS SUMMARY | ~2019-02-11 | XMS | Encounter Summary ---
Demographics + + + | Address | [address] | | | [place] [address] | + + + | Home Phone [...] + | Roxana Bo | ECON | [address] | | | | | [place] | | | | | [address] | | + + + + + Care Team Providers + +------+ + | Care Bakery Team Member Name | Role | Phone | + +------+ + | Ventura Carrasquillo MD | PCP | | + +------+ + Encounter Details +--------+ + + + + | Date | Type | Department | Care Team | Description | +--------+ + + + + | 01/25/ | Telephone | Digestive Health | Lake Dennis MD | | | 2018 | | [place] [address] [address] | [address] | | | | | [address] | [place], [place] | | | | | Mailcode: OC8D | [address] | | | | | [place] for [facility] | [phone] | | | | | and Healing, | | | | | | [address] | | | | | | [place], [place] | | | | | | [address] | | | | | | [phone] | | | +--------+ + + + [...] | | | | | | [place], [place] | | | | | | [address] | | | | | | [phone] | | | | | | | [...]
--- OUTSIDE RECORDS SUMMARY | ~2019-02-11 | XMS | Encounter Summary ---
Demographics + + + | Address | [address] | | | [place] [address] | + + + | Home Phone [...] + | Roxana Bo | ECON | [address] | | | | | [place] | | | | | [address] | | + + + + + Care Team Providers + +------+ + | Care Damage Assessor Name | Role | Phone | + +------+ + | Ventura Carrasquillo MD | PCP | | + +------+ + Reason for Visit + + + | Reason | Comments | + + + | Blood Test Results | [facility] 10/02/14 Lab Results [...] Test Results | | 2014 | | [place] [address] [address] | [address] | ([facility] | | | | [address] | [place], [place] | 10/02/14 Lab Results | | | | Mailcode: OC8D | [address] | (AST, alk, | | | | [facility] | [phone] | bilirubin, protein, | | | | and Healing, | | albumin, CBC)) | | | | [address] | | | | | | [place], [place] | | | | | | [address] | | | | | | [phone] | | | +--------+ + + + [...] Rogers | | | | | | [place], [place] | | | | | | [address] | | | | | | [phone] | | | | | | | | +--------+---------+ + + + documented as of this encounter Visit Diagnoses Not on filedocumented in this encounter"
--- OUTSIDE RECORDS SUMMARY | ~2019-02-11 | XMS | Encounter Summary ---
Demographics + + + | Address | [address] | | | [place] [address] | + + + | Home Phone [...] + | Roxana Bo | ECON | [address] | | | | | [place] | | | | | [address] | | + + + + + Care Team Providers + +------+ + | Care Research Laboratory Specialist Name | Role | Phone | + +------+ + | Ventura Carrasquillo MD | PCP | | + +------+ + Reason for Visit + + + | Reason | Comments | + + + | Blood Test Results | [facility] 07/04/14 CBC and misc. [...] Test Results | | 2014 | | [place] [address] [address] | [address] | ([facility] | | | | [address] | [place], [place] | 07/04/14 CBC and | | | | Mailcode: OC8D | [address] | [facility] Blood Test | | | | [facility] | [phone] | Results ([facility] - | | | | and Healing, | | OUTSIDE LAB 07/04/14 | | | | [address] | | [facility] results) | | | | [place], [place] | | | | | | [address] | | | | | | [phone] | | | +--------+ + + + [...] Rogers | | | | | | [place], [place] | | | | | | [address] | | | | | | [phone] | | | | | | | | +--------+---------+ + + + documented as of this encounter Visit Diagnoses Not on filedocumented in this encounter"
--- OUTSIDE RECORDS SUMMARY | ~2019-02-11 | XMS | Encounter Summary ---
Demographics + + + | Address | [address] | | | [place] [address] | + + + | Home Phone [...] + | Roxana Bo | ECON | [address] | | | | | [place] | | | | | [address] | | + + + + + Care Team Providers + +------+ + | Care Frame Nailer Name | Role | Phone | + +------+ + | Ventura Carrasquillo MD | PCP | | + +------+ + Encounter Details +--------+ + + + + | Date | Type | Department | Care Team | Description | +--------+ + + + + | 01/20/ | Abstract | Digestive Health | Lake Dennis MD | | | 2011 | | [place] [address] [address] | [address] | | | | | [address] | [place], [place] | | | | | Mailcode: OC8D | [address] | | | | | [facility] | [phone] | | | | | and Healing, | | | | | | [address] | | | | | | [place], [place] | | | | | | [address] | | | | | | [phone] | | | +--------+ + + + [...] | | | | | | [place] | | | | | | [address] | | | | | | [phone] | | | | | | | | +--------+---------+ + + + documented as of this encounter Visit Diagnoses Not on filedocumented in this encounter"
--- OUTSIDE RECORDS SUMMARY | ~2019-02-11 | XMS | Encounter Summary ---
Demographics + + + | Address | [address] | | | [place] [address] | + + + | Home Phone [...] + | Roxana Bo | ECON | [address] | | | | | [place] | | | | | [address] | | + + + + + Care Team Providers + +------+ + | Care Felt Pad Cutter Name | Role | Phone | [...] | | 2018 | | Center at [facility] [address]85 | [address] | Review (Lab 01/08/18.) | | | | [address] | [place], [place] | | | | | Mailcode: OC8D | [address] | | | | | [facility] | [phone] | | | | | and Healing, | | | | | | [address] | | | | | | [place], [place] | | | | | | [address] | | | | | | [phone] | | | +--------+ + + + [...] | | 2019 | Visit | | [address] | | | | | | [place], [place] | | | | | | [address] | | | | | | [phone] | | | | | | | | +--------+---------+ + + + documented as of this encounter Visit Diagnoses Not on filedocumented in this encounter"
--- OUTSIDE RECORDS SUMMARY | ~2019-02-11 | XMS | Encounter Summary ---
Demographics + + + | Address | [address] | | | [place] [address] | + + + | Home Phone [...] + | Roxana Bo | ECON | [address] | | | | | [place] | | | | | [address] | | + + + + + Care Team Providers + +------+ + | Care Aircraft Maintenance Supervisor Name | Role | Phone | + +------+ + | Ventura Carrasquillo MD | PCP | | + +------+ + Reason for Visit + + + | Reason | Comments | + + + | Blood Test Results | [facility] 07/04/14 CBC and misc. | + + + | Blood Test Results | [facility] - OUTSIDE LAB 07/04/14 Misc results | + + + Encounter Details +--------+ + + + + | Date | Type | Department | Care Team | Description | +--------+ + + + + | 07/06/ | Abstract | Digestive Health | Lake Denins MD | Blood Test Results | | 2014 | | [place] [address] [address] | [address] | ([facility] | | | | [address] | [place], [place] | 07/04/14 CBC and | | | | Mailcode: OC8D | [address] | [facility] Blood Test | | | | [facility] | [phone] | Results ([facility] - | | | | and Healing, | | OUTSIDE LAB 07/04/14 | | | | [address] | | [facility] results) | | | | [place], [place] | | | | | | [address] | | | | | | [phone] | | | +--------+ + + + [...] | | | | | | [place], [place] | | | | | | [address] | | | | | | [phone] | | | | | | | | +--------+---------+ + + + documented as of this encounter Visit Diagnoses Not on filedocumented in this encounter"
--- OUTSIDE RECORDS SUMMARY | ~2019-02-11 | XMS | Encounter Summary ---
Demographics + + + | Address | [address] | | | [place] [address] | + + + | Home Phone [...] + | Roxana Bo | ECON | [address] | | | | | [place] | | | | | [address] | | + + + + + Care Team Providers + +------+ + | Care Quantitative Developer Name | Role | Phone | [...] 2010 | on | Center at [facility] [address] | [address] | (07/02/2010) | | | | [address] | [place], [place] | | | | | Mailcode: OCLuba | [address] | | | | | [facility] | [phone] | | | | | and Healing, | | | | | | [address] | | | | | | [place], [place] | | | | | | [address] | | | | | | [phone] | | | +--------+ + + + [...] Rogers | | | | | | [place], [place] | | | | | | [address] | | | | | | [phone] | | | | | | | | +--------+---------+ + + + documented as of this encounter Visit Diagnoses Not on filedocumented in this encounter"
--- OUTSIDE RECORDS SUMMARY | ~2019-02-11 | XMS | Encounter Summary ---
Demographics + + + | Address | [address] | | | [place] [address] | + + + | Home Phone [...] + | Roxana Bo | ECON | [address] | | | | | [place] | | | | | [address] | | + + + + + Care Team Providers + +------+ + | Care Mill Feeder Name | Role | Phone | [...] | 2011 | Encounter | Center at [facility] [address] | [address] | | | | | [address] | [place], [place] | | | | | Mailcode: OC8D | [address] | | | | | [facility] | [phone] | | | | | and Healing, | | | | | | [address] | | | | | | [place], [place] | | | | | | [address] | | | | | | [phone] | | | +--------+ + + + [...] Rogers | | | | | | [place], [place] | | | | | | [address] | | | | | | [phone] | | | | | | | | +--------+---------+ + + + documented as of this encounter Visit Diagnoses Not on filedocumented in this encounter"
--- OUTSIDE RECORDS SUMMARY | ~2019-02-11 | XMS | Encounter Summary ---
Demographics + + + | Address | [address] | | | [place] [address] | + + + | Home Phone [...] [place] | | | | | [address] | | + + + + + Care Team Providers + +------+ + | Care Entertainment Usher Name | Role | Phone | + [...] Center at [facility] [address] | [address] | (Out side labs from | | | | [address] | [place], [place] | [facility]. | | | | Mailcode: OC8D | [address] | 07/01/13.) | | | | [facility] | [phone] | | | | | and Healing, | | | | | | [address] | | | | | | [place], [place] | | | | | | [address] | | | | | | [phone] | | | +--------+ + + + [...] Rogers | | | | | | [place], [place] | | | | | | [address] | | | | | | [phone] | | | | | | | [...] - | [address] | [place], [place] | [phone] | | [facility] | | | | [...] [facility] - | [address] | [place] | [phone] | | [facility] | | | | + + + + + documented in this encounter Visit Diagnoses Not on filedocumented in this encounter"
--- OUTSIDE RECORDS SUMMARY | ~2019-02-11 | XMS | Encounter Summary ---
Demographics + + + | Address | [address] | | | [place] [address] | + + + | Home Phone [...] + | Roxana Bo | ECON | [address] | | | | | [place] | | | | | [address] | | + + + + + Care Team Providers + +------+ + | Care Pump Machine Operator Name | Role | Phone | + +------+ + | Ventura Carrasquillo MD | PCP | | + +------+ + Encounter Details +--------+ + + + + | Date | Type | Department | Care Team | Description | +--------+ + + + + | 07/06/ | Abstract | Digestive Health | Lake Dennis MD | | | 2011 | | [place] [address] [address] | [address] | | | | | [address] | [place], [place] | | | | | Mailcode: OC8D | [address] | | | | | [facility] | [phone] | | | | | and Healing, | | | | | | [address] | | | | | | [place], [place] | | | | | | [address] | | | | | | [phone] | | | +--------+ + + + [...] | | | | | | [place] | | | | | | [address] | | | | | | [phone] | | | | | | | | +--------+---------+ + + + documented as of this encounter Visit Diagnoses Not on filedocumented in this encounter"
--- OUTSIDE RECORDS SUMMARY | ~2019-02-11 | XMS | Encounter Summary ---
Demographics + + + | Address | [address] | | | [place] [address] | + + + | Home Phone [...] + | Roxana Bo | ECON | [address] | | | | | [place] | | | | | [address] | | + + + + + Care Team Providers + +------+ + | Care Lawn Caretaker Name | Role | Phone | + [...] Blood | | 2015 | Encounter | [place] [facility] [address] | [address] | Work/test results | | | | [address] | [place], [place] | | | | | Mailcode: OC8D | [address] | | | | | [place] [facility] | [phone] | | | | | and Healing, | | | | | | [address] | | | | | | [place], [place] | | | | | | [address] | | | | | | [phone] | | | +--------+ + + + [...] [place] | | | | | | [address] | | | | | | [phone] | | | | | | | | +--------+---------+ + + + documented as of this encounter Visit Diagnoses Not on filedocumented in this encounter"
--- OUTSIDE RECORDS SUMMARY | ~2019-02-11 | XMS | Encounter Summary ---
Demographics + + + | Address | [address] | | | [place] [address] | + + + | Home Phone [...] + | Roxana Bo | ECON | [address] | | | | | [place] | | | | | [address] | | + + + + + Care Team Providers + +------+ + | Care Flower Cutter Name | Role | Phone | [...] Refill Request | | 2010 | | [place] [address] [address] | [address] | (ursodiol) | | | | [address] | [place], [place] | | | | | Mailcode: OC8D | [address] | | | | | [facility] | [phone] | | | | | and Healing, | | | | | | [address] | | | | | | [place], [place] | | | | | | [address] | | | | | | [phone] | | | +--------+--------+ + + + [...] [address] | | | | | | [place], [place] | | | | | | [address] | | | | | | [phone] | | | | | | | | +--------+---------+ + + + documented as of this encounter Visit Diagnoses Not on filedocumented in this encounter"
[~2019-02-11 10:25] MED LIST: ALENDRONATE SOD70 MG PO; ALLEGRA-D 12 HOU1 EA PO; ANTIVERT25 MG PO; AZATHIOPRINE50 MG PO; CENTRUM SILVER1 EAC5 PO; CEPHALEXIN500 MG PO; FISH OIL 1,0001 EAC1 PO; NORCO 5-325 TA1 EACH PO; PERCOCET 5-3251 EACH PO; PROVENTIL HFA6.7 GM INH; PYRIDIUM200 MG PO; TESSALON PERLE100 MG PO; URSODIOL300 MG PO; VIACTIV SOFT C1 EACH PO; VITAMIN D31000 UNIT PO; ZOFRAN ODT4 MG PO
[2019-02-11] MEDS ORDERED: NORCO 7.5-3251 EACH PO (15:35)
== END 2019-02-11 16:40 | disposition home or self-care (01) ==
LOC: ED 10:25
DX: S82.041A Displaced comminuted fracture of right patella, initial encounter for closed fracture (principal); W00.0XXA Fall on same level due to ice and snow, initial encounter; Z88.1 Allergy status to other antibiotic agents; Z79.899 Other long term (current) drug therapy
CPT/HCPCS: 73560; 73700; 96374; 96375; 99284-25; A9270; J2405; J3010

== ENCOUNTER 2019-06-23 18:54 | Emergency (ER) | payer MEDICARE, OTHER ==
[~2019-06-23] VITALS: Ht 160 cm; Wt 80.7 kg
[~2019-06-23 18:54] MED LIST changes: +NORCO 7.5-3251 EACH PO
== END 2019-06-23 21:10 | disposition home or self-care (01) ==
LOC: ED 18:54
DX: R04.0 Epistaxis (principal)
CPT/HCPCS: 30901; 85025; 85610; 85730; 99283-25

== ENCOUNTER 2019-12-22 15:55 | Emergency (ER) | payer OTHER, MEDICARE ==
[~2019-12-22] VITALS: Ht 160 cm; Wt 80.7 kg
--- OUTSIDE RECORDS SUMMARY | ~2019-12-22 | XMS | Encounter Summary ---
Demographics + + + | Address | [address] | | | [place] [address] | + + + | Home Phone | | + + + | Preferred Language | Unknown | + + + | Marital Status | | + + + | Anglican Affiliation | CAT | + + + | Race | White | + + + | Ethnic Group | Not or | + + + Author + + + | Author | [facility] | + + + | Organization | [facility] | + + + | Address | Unknown | + + + | Phone | Unavailable | + + + Support + + + + + | Name | Relationship | Address | Phone | + + + + + | Roxana Bo | ECON | [address] | | | | | [place] | | | | | [address] | | + + + + + Care Team Providers + +------+ + | Care Beer Merchant Name | Role | Phone | + +------+ + | Ventura Carrasquillo MD | PCP | | + +------+ + Reason for Visit + + + | Reason | Comments | + + + | Blood Test Results | Out side labs from [facility]. 04/02/12. | + + + Encounter Details +--------+ + + + + | Date | Type | Department | Care Team | Description | +--------+ + + + + | 04/05/ | Documentati | Digestive Health | Lake Dennis MD | Blood Test Results | | 2011 | on | Center at [facility] [address] | [address] | (Out side labs from | | | | [address] [facility] | [place], [place] | [facility]. | | | | for Health and | [address] | 04/02/12.) | | | | Healing, [address] | [phone] | | | | | [place], [place] | | | | | | [address] | | | | | | [phone] | | | +--------+ + + + + Social History + +-------+ +--------+------+ | Tobacco Use | Types | Packs/Day | Years | Date | | | | | Used | | + +-------+ +--------+------+ | Never Smoker | | | | | + +-------+ +--------+------+ + + +---------+ + | Alcohol Use | Drinks/Week | oz/Week | Comments | + + +---------+ + | No | | | | + + +---------+ + + + + | Sex Assigned at | Date Recorded | | | | + + + | Not on file | | + + + + + + + | Job Start Date | Occupation | Industry | + + + + | Not on file | Not on file | Not on file | + + + + + + + + | Travel History | Travel Start | Travel End | + + + + + + | No recent travel history available. | + + documented as of this encounter Plan of Treatment +--------+---------+ + + + | Date | Type | Specialty | Care Team | Description | +--------+---------+ + + + | 01/26/ | Office | Hepatology | Lake Dennis MD | | | 2019 | Visit | | [address] | | | | | | [place], [place] | | | | | | [address] | | | | | | [phone] | | | | | | | | +--------+---------+ + + + documented as of this encounter Procedures + +--------+ + + + | Procedure Name | Priori | Date/Time | Associated Diagnosis | Comments | | | ty | | | | + +--------+ + + + | INR | Routin | 04/02/2012 | | Results for this | | | e | 11:40 AM | | procedure are in the | | | | PST | | results section. | + +--------+ + + + | COMPLETE METABOLIC | Routin | 04/02/2012 | | Results for this | | SET | e | 11:40 AM | | procedure are in the | | (NA,K,CL,CO2,BUN,CRE | | PST | | results section. | | AT,GLUC,CA,AST,ALT,B | | | | | | JONH TOTAL,ALK | | | | | | PHOS,ALB,PROT TOTAL) | | | | | + +--------+ + + + | CBC ONLY | Routin | 04/02/2012 | | Results for this | | | e | 11:40 AM | | procedure are in the | | | | PST | | results section. | + +--------+ + + + documented in this encounter Results CBC ONLY (04/02/2012 11:40 AM PST) + + + + + + | Component | Value | Ref Range | Performed | Pathologist | | | | | At | Signature | + + + + + + | WHITE CELL | 5.1 | K/cu mm | [facility] | | | COUNT | | | LAB - | | | | | | [place] | | + + + + + + | RED CELL | | M/cu mm | [facility] | | | COUNT | | | LAB - | | | | | | [facility] | | + + + + + + | HEMOGLOBIN | 14.4 | g/dL | [facility] | | | | | | LAB - | | | | | | [facility] | | + + + + + + | HEMATOCRIT | 45.2 (H) | % | [facility] | | | | | | LAB - | | | | | | [facility] | | + + + + + + | MCV | | fL | [facility] | | | | | | LAB - | | | | | | [facility] | | + + + + + + | MCH | | pg | [facility] | | | | | | LAB - | | | | | | [facility] | | + + + + + + | MCHC | | g/dL | [facility] | | | | | | LAB - | | | | | | [facility] | | + + + + + + | PLATELET | 409 | K/cu mm | [facility] | | | COUNT | | | LAB - | | | | | | [facility] | | + + + + + + | NEUTROPHIL | | % | [facility] | | | % | | | LAB - | | | | | | [facility] | | + + + + + + | LYMPHOCYTE | | % | [facility] | | | % | | | LAB - | | | | | | [facility] | | + + + + + + | MONOCYTE % | | % | [facility] | | | | | | LAB - | | | | | | [facility] | | + + + + + + | EOS % | | % | [facility] | | | | | | LAB - | | | | | | [facility] | | + + + + + + | BASO % | | % | [facility] | | | | | | LAB - | | | | | | [facility] | | + + + + + + | RDW | | % | [facility] | | | | | | LAB - | | | | | | [facility] | | + + + + + + + + | Specimen | + + | Blood - Blood | + + + + + + + | Performing | Address | City/State/Zipcode | Phone Number | | Organization | | | | + + + + + | [facility] - | [address] | [place], [place] | [phone] | | [place] | | | | + + + + + | [facility] - | | [place], [place] | | | [place] | | | | + + + + + COMPLETE METABOLIC SET (NA,K,CL,CO2,BUN,CREAT,GLUC,CA,AST,ALT,BILI TOTAL,ALK PHOS,ALB,PROT TOTAL) (04/02/2012 11:40 AM PST) + +---------+ + + + | Component | Value | Ref Range | Performed | Pathologist | | | | | At | Signature | + +---------+ + + + | GLUCOSE, | 88 | mg/dL | [facility] | | | PLASMA | | | LAB - | | | (LAB) | | | [place] | | + +---------+ + + + | BUN, PLASMA | 15 | mg/dL | [facility] | | | (LAB) | | | LAB - | | | | | | [place] | | + +---------+ + + + | CREATININE | 0.77 | mg/dL | [facility] | | | PLASMA | | | LAB - | | | (LAB) | | | [facility] | | + +---------+ + + + | TOTAL | | g/dL | [facility] | | | PROTEIN, | | | LAB - | | | PLASMA | | | [place] | | | (LAB) | | | | | + +---------+ + + + | ALBUMIN, | 3.9 | g/dL | [facility] | | | PLASMA | | | LAB - | | | (LAB) | | | [place] | | + +---------+ + + + | CALCIUM, | | mg/dL | [facility] | | | PLASMA | | | LAB - | | | (LAB) | | | [facility] | | + +---------+ + + + | BILIRUBIN | 0.7 | Transcutaneous | [facility] | | | TOTAL | | Bilirubinometer | LAB - | | | | | | [facility] | | + +---------+ + + + | ALK PHOS | 116 | U/L | [facility] | | | | | | LAB - | | | | | | [place] | | + +---------+ + + + | AST(SGOT) | 16 | U/L | [facility] | | | | | | LAB - | | | | | | [place] | | + +---------+ + + + | SODIUM, | 142 | mmol/L | [facility] | | | PLASMA | | | LAB - | | | (LAB) | | | [facility] | | + +---------+ + + + | POTASSIUM, | 3.5 (L) | mmol/L | [facility] | | | PLASMA | | | LAB - | | | (LAB) | | | [facility] | | + +---------+ + + + | CHLORIDE, | | mmol/L | [facility] | | | PLASMA | | | LAB - | | | (LAB) | | | [facility] | | + +---------+ + + + | TOTAL CO2, | | mmol/L | [facility] | | | PLASMA | | | LAB - | | | (LAB) | | | [facility] | | + +---------+ + + + | ALT (SGPT) | 9 | U/L | [facility] | | | | | | LAB - | | | | | | [facility] | | + +---------+ + + + + + | Specimen | + + | Blood - Blood | + + + + + + + | Performing | Address | City/State/Zipcode | Phone Number | | Organization | | | | + + + + + | [facility] - | [address] | [place], [place] | [phone] | | [place] | | | | + + + + + | [facility] - | | [place], [place] | | | [place] | | | | + + + + + INR (04/02/2012 11:40 AM PST) + +-------+ + + + | Component | Value | Ref Range | Performed | Pathologist | | | | | At | Signature | + +-------+ + + + | INR | 1 | INR | [facility] | | | | | | LAB - | | | | | | [place] | | + +-------+ + + + + + | Specimen | + + | Blood - Blood | + + + + + + + | Performing | Address | City/State/Zipcode | Phone Number | | Organization | | | | + + + + + | [facility] - | [address] | [place], [place] | [phone] | | [place] | | | | + + + + + | [facility] - | | [place], [place] | | | [place] | | | | + + + + + documented in this encounter Visit Diagnoses Not on filedocumented in this encounter"
--- OUTSIDE RECORDS SUMMARY | ~2019-12-22 | XMS | Encounter Summary ---
Demographics + + + | Address | [address] | | | [place] [address] | + + + | Home Phone | | + + + | Preferred Language | Unknown | + + + | Marital Status | | + + + | Moravian Affiliation | CAT | + + + | Race | White | + + + | Ethnic Group | Not or | + + + Author + + + | Author | [facility] | + + + | Organization | [facility] | + + + | Address | Unknown | + + + | Phone | Unavailable | + + + Support + + + + + | Name | Relationship | Address | Phone | + + + + + | Roxana Bo | ECON | [address] | | | | | [place] | | | | | [address] | | + + + + + Care Team Providers + +------+ + | Care Seafood And Service Meat Manager Name | Role | Phone | + +------+ + | Ventura Carrasquillo MD | PCP | | + +------+ + Reason for Visit + + + | Reason | Comments | + + + | Medication | | | management | | + + + Encounter Details +--------+ + + + + | Date | Type | Department | Care Team | Description | +--------+ + + + + | 01/11/ | Telephone | Digestive Health | Lake Dennis MD | Medication | | 2009 | | Center at [facility] [address] | [address] | management | | | | [address] | [place], [place] | | | | | [facility] and | [address] | | | | | [facility] | [phone] | | | | | [place], [place] | | | | | | [address] | | | | | | [phone] | | | +--------+ + + + [...] | Lake Dennis MD | | | 2020 | Visit | | [address] | | | | | | [place] | | | | | | [address] | | | | | | [phone] | | | | | | | | +--------+---------+ + + + documented as of this encounter Visit Diagnoses Not on filedocumented in this encounter"
--- OUTSIDE RECORDS SUMMARY | ~2019-12-22 | XMS | Encounter Summary ---
Demographics + + + | Address | [address] | | | [place] [address] | + + + | Home Phone | | + + + | Preferred Language | Unknown | + + + | Marital Status | | + + + | Hindu Affiliation | CAT | + + + | Race | White | + + + | Ethnic Group | Not or | + + + Author + + + | Author | [facility] | + + + | Organization | [facility] | + + + | Address | Unknown | + + + | Phone | Unavailable | + + + Support + + + + + | Name | Relationship | Address | Phone | + + + + + | Roxana Bo | ECON | [address] | | | | | [place] | | | | | [address] | | + + + + + Care Team Providers + +------+ + | Care Nursery Nurse Name | Role | Phone | + +------+ + | Ventura Carrasquillo MD | PCP | | + +------+ + Encounter Details +--------+ + + + + | Date | Type | Department | Care Team | Description | +--------+ + + + + | 01/10/ | MyChart | Digestive Health | Lake Dennis MD | RE: Bloodwork result | | 2019 | Encounter | Center at [facility] [address] | [address] | | | | | [address] | [place], [place] | | | | | for Health and | [address] | | | | | Healing, [address] | [phone] | | | | | [place], [place] | | | | | | [address] | | | | | | [phone] | | | +--------+ + + + [...] [address] | | | | | | [place], [place] | | | | | | [address] | | | | | | [phone] | | | | | | | | +--------+---------+ + + + documented as of this encounter Visit Diagnoses Not on filedocumented in this encounter"
--- OUTSIDE RECORDS SUMMARY | ~2019-12-22 | XMS | Encounter Summary ---
Demographics + + + | Address | [address] | | | [place] [address] | + + + | Home Phone | | + + + | Preferred Language | Unknown | + + + | Marital Status | | + + + | Zoroastrian Affiliation | CAT | + + + | Race | White | + + + | Ethnic Group | Not or | + + + Author + + + | Author | [facility] | + + + | Organization | [facility] | + + + | Address | Unknown | + + + | Phone | Unavailable | + + + Support + + + + + | Name | Relationship | Address | Phone | + + + + + | Roxana Bo | ECON | [address] | | | | | [place] | | | | | [address] | | + + + + + Care Team Providers + +------+ + | Care Almond Blancher Operator Name | Role | Phone | + +------+ + | Ventura Carrasquillo MD | PCP | | + +------+ + Reason for Visit + + + | Reason | Comments | + + + | Medical Records | Lab 01/08/18. | | Review | | + + + Encounter Details +--------+ + + + + | Date | Type | Department | Care Team | Description | +--------+ + + + + | 01/25/ | Abstract | Digestive Health | Lake Dennis MD | Medical Records | | 2018 | | Center at [facility] [address] | [address] | Review (Lab 01/08/18.) | | | | [address] [facility] | [place], [place] | | | | | for Health and | [address] | | | | | [facility] 2 | [phone] | | | | | [place], [place] | | | | | | [address] | | | | | | [phone] | | | +--------+ + + + [...] | 2019 | Visit | | [address] | | | | | | [place], [place] | | | | | | [address] | | | | | | [phone] | | | | | | | | +--------+---------+ + + + documented as of this encounter Visit Diagnoses Not on filedocumented in this encounter"
--- OUTSIDE RECORDS SUMMARY | ~2019-12-22 | XMS | Encounter Summary ---
Demographics + + + | Address | [address] | | | [place] [address] | + + + | Home Phone | | + + + | Preferred Language | Unknown | + + + | Marital Status | | + + + | Adventism Affiliation | CAT | + + + | Race | White | + + + | Ethnic Group | Not or | + + + Author + + + | Author | [facility] | + + + | Organization | [facility] | + + + | Address | Unknown | + + + | Phone | Unavailable | + + + Support + + + + + | Name | Relationship | Address | Phone | + + + + + | Roxana Bo | ECON | [address] | | | | | [place] | | | | | [address] | | + + + + + Care Team Providers + +------+ + | Care General Office Worker Name | Role | Phone | + +------+ + | Ventura Carrasquillo MD | PCP | | + +------+ + Reason for Visit + + + | Reason | Comments | + + + | Blood Test Results | Out side labs from [facility]. 10/04/13. | + + + Encounter Details +--------+ + + + + | Date | Type | Department | Care Team | Description | +--------+ + + + + | 10/05/ | Documentati | Digestive Health | Lake Dennis MD | Blood Test Results | | 2013 | on | Center at [facility] [address] | [address] | (Out side labs from | | | | [address] [facility] | [place], [place] | [facility]. | | | | for Health and | [address] | 10/04/13.) | | | | Healing, [address] | [phone] | | | | | [place], [place] | | | | | | [address] | | | | | | [phone] | | | +--------+ + + + [...] [address] | | | | | | [place], [place] | | | | | | [address] | | | | | | [phone] | | | | | | | | +--------+---------+ + + + documented as of this encounter Procedures + +--------+ + + + | Procedure Name | Priori | Date/Time | Associated Diagnosis | Comments | | | ty | | | | + +--------+ + + + | CBC, WITH | Routin | 10/04/2013 | | Results for this | | DIFFERENTIAL | e | 10:44 AM | | procedure are in the | | | | PDT | | results section. | + +--------+ + + + | COMPLETE METABOLIC | Routin | 10/04/2013 | | Results for this | | SET | e | 10:44 AM | | procedure are in the | | (NA,K,CL,CO2,BUN,CRE | | PDT | | results section. | | AT,GLUC,CA,AST,ALT,B | | | | | | JONH TOTAL,ALK | | | | | | PHOS,ALB,PROT TOTAL) | | | | | + +--------+ + + + documented in this encounter Results CBC, WITH DIFFERENTIAL (10/04/2013 10:44 AM PDT) + +-------+ + + + | Component | Value | Ref Range | Performed | Pathologist | | | | | At | Signature | + +-------+ + + + | WHITE CELL | 4.8 | K/cu mm | [facility] | | | COUNT | | | LAB - | | | | | | [place] | | + +-------+ + + + | HEMOGLOBIN | 14.7 | g/dL | [facility] | | | | | | LAB - | | | | | | [place] | | + +-------+ + + + | HEMATOCRIT | 44 | % | [facility] | | | | | | LAB - | | | | | | [place] | | + +-------+ + + + | PLATELET | 373 | K/cu mm | [facility] | | [address] | [place], [place] | [phone] | | [place] | | | | + + + + + COMPLETE METABOLIC SET (NA,K,CL,CO2,BUN,CREAT,GLUC,CA,AST,ALT,BILI TOTAL,ALK PHOS,ALB,PROT TOTAL) (10/04/2013 10:44 AM PDT) + +-------+ + + + | Component | Value | Ref Range | Performed | Pathologist | | | | | At | Signature | + +-------+ + + + | GLUCOSE, | 90 | mg/dL | [facility] | | | PLASMA | | | LAB - | | | (LAB) | | | [place] | | + +-------+ + + + | BUN, PLASMA | 12 | mg/dL | [facility] | | | (LAB) | | | LAB - | | | | | | [place] | | + +-------+ + + + | CREATININE | 0.86 | mg/dL | [facility] | | | PLASMA | | | LAB - | | | (LAB) | | | [place] | | + +-------+ + + + | ALBUMIN, | 3.8 | g/dL | [facility] | | | PLASMA | | | LAB - | | | (LAB) | | | [place] | | + +-------+ + + + | BILIRUBIN | 0.7 | Transcutaneous | [facility] | | | TOTAL | | Bilirubinometer | LAB - | | | | | | [place] | | + +-------+ + + + | ALK PHOS | 103 | U/L | [facility] | | | | | | LAB - | | | | | | [place] | | + +-------+ + + + | AST(SGOT) | 22 | U/L | [facility] | | | | | | LAB - | | | | | | [place] | | + +-------+ + + + | SODIUM, | 142 | mmol/L | [facility] | | | PLASMA | | | LAB - | | | (LAB) | | | [place] | | + +-------+ + + + | POTASSIUM, | 3.9 | mmol/L | [facility] | | | PLASMA | | | LAB - | | | (LAB) | | | [place] | | + +-------+ + + + | ALT (SGPT) | 11 | U/L | [facility] | | | [...] - | [address] | [place] | [phone] | | [place] | | | | + + + + + documented in this encounter Visit Diagnoses Not on filedocumented in this encounter"
--- OUTSIDE RECORDS SUMMARY | ~2019-12-22 | XMS | Encounter Summary ---
Demographics + + + | Address | [address] | | | [place] [address] | + + + | Home Phone | | + + + | Preferred Language | Unknown | + + + | Marital Status | | + + + | Catholic Affiliation | CAT | + + + | Race | White | + + + | Ethnic Group | Not or | + + + Author + + + | Author | [facility] | + + + | Organization | [facility] | + + + | Address | Unknown | + + + | Phone | Unavailable | + + + Support + + + + + | Name | Relationship | Address | Phone | + + + + + | Roxana Bo | ECON | [address] | | | | | [place] | | | | | [address] | | + + + + + Care Team Providers + +------+ + | Care Medical Office Manager Name | Role | Phone | [...] | 2011 | on | Center at [facility] [address] | [address] | (Out side labs from | | | | [address] [facility] | [place], [place] | [facility]. | | | | for Health and | [address] | 04/02/12.) | | | | Healing, [address] | [phone] | | | | | [place], [place] | | | | | | [address] | | | | | | [phone] | | | +--------+ + + + [...] [address] | | | | | | [place], [place] | | | | | | [address] | | | | | | [phone] | | | | | | | [...] [address] | [place], [place] | [phone] | | [place] | | | | [...] [address] | [place], [place] | [phone] | | [place] | | | | [address] | [place], [place] | [phone] | | [place] | | | | + + + + + | [facility] - | | [place], [place] | | | [place] | | | | + + + + + documented in this encounter Visit Diagnoses Not on filedocumented in this encounter"
--- OUTSIDE RECORDS SUMMARY | ~2019-12-22 | XMS | Encounter Summary ---
Demographics + + + | Address | [address] | | | [place] [address] | + + + | Home Phone | | + + + | Preferred Language | Unknown | + + + | Marital Status | | + + + | Confucianism Affiliation | CAT | + + + | Race | White | + + + | Ethnic Group | Not or | + + + Author + + + | Organization | Unknown | + + + | Address | Unknown | + + + | Phone | Unavailable | + + + Support + + + + + | Name | Relationship | Address | Phone | + + + + + | Roxana Bo | ECON | [address] | | | | | [place] | | | | | [address] | | + + + + + Care Team Providers + +------+ + | Care Compo Caster Name | Role | Phone | + +------+ + | Ventura Carrasquillo MD | PCP | | + +------+ + Encounter Details +--------+--------+ + + + | Date | Type | Department | Care Team | Description | +--------+--------+ + + + | 02/04/ | Travel | | | | | 2019 | | | | | +--------+--------+ + + + Social History + +-------+ [...] | | | | | | [place], [place] | | | | | | [address] | | | | | | [phone] | | | | | | | | +--------+---------+ + + + documented as of this encounter Visit Diagnoses Not on filedocumented in this encounter"
--- OUTSIDE RECORDS SUMMARY | ~2019-12-22 | XMS | Encounter Summary ---
Demographics + + + | Address | [address] | | | [place] [address] | + + + | Home Phone | | + + + | Preferred Language | Unknown | + + + | Marital Status | | + + + | Faith Affiliation | CAT | + + + [...] + | Roxana Bo | ECON | [address] | | | | | [place] | | | | | [address] | | + + + + + Care Team Providers + +------+ + | Care Otolaryngologist Name | Role | Phone | + +------+ + | Ventura Carrasquillo MD | PCP | | + +------+ + Reason for Visit + + + | Reason | Comments | + + + | Lab Results | Medication/results. | + + + | Medication | | | management | | + + + Encounter Details +--------+ + + + + | Date | Type | Department | Care Team | Description | +--------+ + + + + | 03/05/ | MyChart | Digestive Health | Lake Dennis MD | RE: Test Results | | 2015 | Encounter | Center at [facility] [address] | [address] | | | | | [address] | [place], [place] | | | | | for Health and | [address] | | | | | [facility] 2 | [phone] | | | | | [place], [place] | | | | | | [address] | | | | | | [phone] | | | +--------+ + + + [...] | | | | | | [place], [place] | | | | | | [address] | | | | | | [phone] | | | | | | | | +--------+---------+ + + + documented as of this encounter Procedures + +--------+ + + + | Procedure Name | Priori | Date/Time | Associated Diagnosis | Comments | | | ty | | | | + +--------+ + + + | CBC, WITH | Routin | 07/04/2014 | | Results for this | | DIFFERENTIAL | e | 9:39 AM | | procedure are in the | | | | PST | | results section. | + +--------+ + + + | LIVER SET | Routin | 07/04/2014 | | Results for this | | (AST,ALT,BILI | e | 9:39 AM | | procedure are in the | | TOTAL,BILI | | PST | | results section. | | DIRECT,ALK | | | | | | PHOS,ALB,PROT TOTAL) | | | | | + +--------+ + + + documented in this encounter Results LIVER SET (AST,ALT,BILI TOTAL,BILI DIRECT,ALK PHOS,ALB,PROT TOTAL) (07/04/2014 9:39 AM PST ) + + + + + + | Component | Value | Ref Range | Performed | Pathologist | | | | | At | Signature | + + + + + + | BILIRUBIN | 0.5 | Transcutaneous | [facility] | | | TOTAL | | Bilirubinometer | LAB - | | | | | | [place] | | + + + + + + | ALK PHOS | 134 (H) | U/L | [facility] | | | | | | LAB - | | | | | | [place] | | + + + + + + | BILIRUBIN | 0.11 (H) | mg/dL | [facility] | | | DIRECT | | | LAB - | | | | | | [place] | | + + + + + + | ALBUMIN, | 3.7 | g/dL | [facility] | | | PLASMA | | | LAB - | | | (LAB) | | | [place] | | + + + + + + | AST(SGOT) | 20 | U/L | [facility] | | | | | | LAB - | | | | | | [place] | | + + + + + + | ALT (SGPT) | [...] [address] | [place], [place] | [phone] | | [place] | | | | + + + + + CBC, WITH DIFFERENTIAL (07/04/2014 9:39 AM PST) + +-------+ + + + | Component | Value | Ref Range | Performed | Pathologist | | | | | At | Signature | + +-------+ + + + | WHITE CELL | 6 | K/cu mm | [facility] | | | COUNT | | | LAB - | | | | | | [place] | | + +-------+ + + + | HEMOGLOBIN | 14.3 | g/dL | [facility] | | | | | | LAB - | | | | | | [place] | | + +-------+ + + + | HEMATOCRIT | 43.7 | % | [facility] | | | | | | LAB - | | | | | | [place] | | + +-------+ + + + | PLATELET | 359 | K/cu mm | [facility] | | [...] [address] | [place], [place] | [phone] | | [place] | | | | + + + + + documented in this encounter Visit Diagnoses Not on filedocumented in this encounter"
--- OUTSIDE RECORDS SUMMARY | ~2019-12-22 | XMS | Encounter Summary ---
Demographics + + + | Address | [address] | | | [place] [address] | + + + | Home Phone | | + + + | Preferred Language | Unknown | + + + | Marital Status | | + + + | Voodoo Affiliation | CAT | + + + | Race | White | + + + | Ethnic Group | Not or | + + + Author + + + | Author | [facility] | + + + | Organization | [facility] | + + + | Address | Unknown | + + + | Phone | Unavailable | + + + Support + + + + + | Name | Relationship | Address | Phone | + + + + + | Roxana Bo | ECON | [address] | | | | | [place] | | | | | [address] | | + + + + + Care Team Providers + +------+ + | Care Bench Worker Binding Name | Role | Phone | + +------+ + | Ventura Carrasquillo MD | PCP | | + +------+ + Reason for Visit +--------+ + | Reason | Comments | +--------+ + | Other | External standing lab order | +--------+ + Encounter Details +--------+ + + + + | Date | Type | Department | Care Team | Description | +--------+ + + + + | 01/26/ | Fruit Vendor | Digestive Health | Lake Dennis MD | Primary biliary | | 2017 | | Center at [facility] [address] | [address] | cirrhosis (HCC) | | | | [address] | [place], [place] | (Primary Dx); | | | | for Health and | [address] | Autoimmune hepatitis | | | | [facility] 2 | [phone] | (HCC) | | | | [place], [place] | | | | | | [address] | | | | | | [phone] | | | +--------+ + + + [...] [place] | | | | | | [place], [place] | | | | | | [address] | | | | | | [phone] | | | | | | | | +--------+---------+ + + + documented as of this encounter Visit Diagnoses + + | Diagnosis | + + | Primary biliary cirrhosis (HCC) - Primary Biliary cirrhosis | + + | Autoimmune hepatitis (HCC) Autoimmune hepatitis | + + documented in this encounter"
--- OUTSIDE RECORDS SUMMARY | ~2019-12-22 | XMS | Encounter Summary ---
Demographics + + + | Address | [address] | | | [place] [address] | + + + | Home Phone | | + + + | Preferred Language | Unknown | + + + | Marital Status | | + + + | Latter-Day Affiliation | CAT | + + + | Race | White | + + + | Ethnic Group | Not or | + + + Author + + + | Author | [facility] | + + + | Organization | [facility] | + + + | Address | Unknown | + + + | Phone | Unavailable | + + + Support + + + + + | Name | Relationship | Address | Phone | + + + + + | Roxana Bo | ECON | [address] | | | | | [place] | | | | | [address] | | + + + + + Care Team Providers + +------+ + | Care Team Foreman Name | Role | Phone | + +------+ + | Ventura Carrasquillo MD | PCP | | + +------+ + Encounter Details +--------+ + + + + | Date | Type | Department | Care Team | Description | +--------+ + + + + | 01/25/ | Telephone | Digestive Health | Lake Dennis MD | | | 2018 | | [place] [address] [address] | [address] | | | | | [address] | [facility] [place] | | | | | for Health and | [address] | | | | | [facility], [address] | [phone] | | | | | [place], [place] | | | | | | [address] | | | | | | [phone] | | | +--------+ + + + [...] [address] | | | | | | [place], [place] | | | | | | [address] | | | | | | [phone] | | | | | | | | +--------+---------+ + + + documented as of this encounter Visit Diagnoses + + | Diagnosis | + + | Autoimmune hepatitis (HCC) - Primary Autoimmune hepatitis | + + | Primary biliary cholangitis (HCC) | + + documented in this encounter"
--- OUTSIDE RECORDS SUMMARY | ~2019-12-22 | XMS | Encounter Summary ---
Demographics + + + | Address | [address] | | | [place] [address] | + + + | Home Phone | | + + + | Preferred Language | Unknown | + + + | Marital Status | | + + + | Scientology Affiliation | CAT | + + + | Race | White | + + + | Ethnic Group | Not or | + + + Author + + + | Author | [facility] | + + + | Organization | [facility] | + + + | Address | Unknown | + + + | Phone | Unavailable | + + + Support + + + + + | Name | Relationship | Address | Phone | + + + + + | Roxana Bo | ECON | [address] | | | | | [place] | | | | | [address] | | + + + + + Care Team Providers + +------+ + | Care Hydroelectric Plant Electrician Name | Role | Phone | + +------+ + | Ventura Carrasquillo MD | PCP | | + +------+ + Reason for Visit + + + | Reason | Comments | + + + | Refill Request | | + + + Encounter Details +--------+--------+ + + + | Date | Type | Department | Care Team | Description | +--------+--------+ + + + | 10/19/ | Refill | Digestive Health | Sonny, Lake, MD | Refill Request | | 2019 | | Center at [facility] [address] | [address] | | | | | [address] | [place], [place] | | | | | for Health and | [address] | | | | | [facility] 2 | [phone] | | | | | [place], [place] | | | | | | [address] | | | | | | [phone] | | | +--------+--------+ + + + [...] 01/26/ | Office | Hepatology | Lake eDnnis MD | | | 2020 | Visit | | [address] | | | | | | [place], [place] | | | | | | [address] | | | | | | [phone] | | | | | | | | +--------+---------+ + + + documented as of this encounter Visit Diagnoses Not on filedocumented in this encounter"
--- OUTSIDE RECORDS SUMMARY | ~2019-12-22 | XMS | Encounter Summary ---
Demographics + + + | Address | [address] | | | [place] [address] | + + + | Home Phone | | + + + | Preferred Language | Unknown | + + + | Marital Status | | + + + | Jain Affiliation | CAT | + + + [...] + | Roxana Bo | ECON | [address] | | | | | [place] | | | | | [address] | | + + + + + Care Team Providers + +------+ + | Care Assembly Person Name | Role | Phone | + +------+ + | Ventura Carrasquillo MD | PCP | | + +------+ + Encounter Details +--------+ + + + + | Date | Type | Department | Care Team | Description | +--------+ + + + + | 10/04/ | Document-Sc | UNKNOWN DEPARTMENT | Unknown . | | | 2013 | anned | [address] | | | | | | [address] | | | | | | [place], [place] | | | | | | [address] | | | +--------+ + + + [...] [address] | | | | | | [place], [place] | | | | | | [address] | | | | | | [phone] | | | | | | | | +--------+---------+ + + + documented as of this encounter Procedures + +--------+ + + + | Procedure Name | Priori | Date/Time | Associated Diagnosis | Comments | | | ty | | | | + +--------+ + + + | LAB REPORTS | | 10/04/2013 | | Results for this | | | | 12:00 AM | | procedure are in the | | | | PDT | | results section. | + +--------+ + + + documented in this encounter Results LAB REPORTS (10/04/2013 12:00 AM PDT) + + + | Narrative | Performed At | + + + | | | | | | + + + + + | Procedure Note | + + | Rg Richards - 11/01/2013 10:26 AM PDT | + + + + | Transcriptions | + + | Maurice, Rg - 11/01/2013 10:26 AM PDT | + + documented in this encounter Visit Diagnoses Not on filedocumented in this encounter"
--- OUTSIDE RECORDS SUMMARY | ~2019-12-22 | XMS | Encounter Summary ---
Demographics + + + | Address | [address] | | | [place] [address] | + + + | Home Phone | | + + + | Preferred Language | Unknown | + + + | Marital Status | | + + + | Mormon Affiliation | CAT | + + + | Race | White | + + + | Ethnic Group | Not or | + + + Author + + + | Author | [facility] | + + + | Organization | [facility] | + + + | Address | Unknown | + + + | Phone | Unavailable | + + + Support + + + + + | Name | Relationship | Address | Phone | + + + + + | Roxana Bo | ECON | [address] | | | | | [place] | | | | | [address] | | + + + + + Care Team Providers + +------+ + | Care Door Tender Name | Role | Phone | + [...] | +--------+ + + + + | 05/06/ | Abstract | Digestive Health | Lake Dennis MD | Blood Test Results | | 2017 | | Center at [facility] [address] | [address] | | | | | [address] | [place], [place] | | | | | for Health and | [address] | | | | | [facility] 2 | [phone] | | | | | [place], [place] | | | | | | [address] | | | | | | [phone] | | | +--------+ + + + [...] + + documented as of this encounter Progress Notes Umesh Horowitz MA - 05/06/2016 9:17 AM PST[facility] [address] [place] [address] #[id number] signed by Umesh Horowitz MA at 07/09/2016 2:35 PM PSTdocumelissa i n this encounter Plan of Treatment +--------+---------+ + + + | Date | Type | Specialty | Care Team | Description | +--------+---------+ + + + | 01/26/ | Office | Hepatology | Lake Dennis MD | | | 2019 | Visit | | [address] | | | | | | [place], [place] | | | | | | [address] | | | | | | [phone] | | | | | | | | +--------+---------+ + + + documented as of this encounter Procedures + +--------+ + + + | Procedure Name | Priori | Date/Time | Associated Diagnosis | Comments | | | ty | | | | + +--------+ + + + | LIVER SET | Routin | 05/05/2016 | | Results for this | | (AST,ALT,BILI | e | | | procedure are in the | | TOTAL,BILI | | | | results section. | | DIRECT,ALK | | | | | | PHOS,ALB,PROT TOTAL) | | | | | + +--------+ + + + | CBC ONLY | Routin | 05/05/2016 | | Results for this | | | e | | | procedure are in the | | | | | | results section. | + +--------+ + + + documented in this encounter Results LIVER SET (AST,ALT,BILI TOTAL,BILI DIRECT,ALK PHOS,ALB,PROT TOTAL) (05/05/2016) + +---------+ + + + | Component | Value | Ref Range | Performed | Pathologist | | | | | At | Signature | + +---------+ + + + | BILIRUBIN | 0.6 | Transcutaneous | [facility] | | | TOTAL | | Bilirubinometer | LAB - | | | | | | [place] | | + +---------+ + + + | ALK PHOS | 143 (H) | U/L | [facility] | | | | | | LAB - | | | | | | [place] | | + +---------+ + + + | TOTAL | 7.0 | g/dL | [facility] | | | PROTEIN, | | | LAB - | | | PLASMA | | | [place] | | | (LAB) | | | | | + +---------+ + + + | BILIRUBIN | 0.1 | mg/dL | [facility] | | | DIRECT | | | LAB - | | | | | | [place] | | + +---------+ + + + | ALBUMIN, | 3.6 | g/dL | [facility] | | | PLASMA | | | LAB - | | | (LAB) | | | [place] | | + +---------+ + + + | AST(SGOT) | 22 | U/L | [facility] | | | | | | LAB - | | | | | | [place] | | + +---------+ + + + | ALT (SGPT) | 13 | U/L | [facility] | | | | | | LAB - | | | | | | [place] | | + +---------+ + + + + + | Specimen | + + | Blood - Blood | | (substance) | + + + + + + + | Performing | Address | City/State/Zipcode | Phone Number | | Organization | | | | + + + + + | [facility] - | [address] | [place], [place] | | | [place] | [address] | [address] | | + + + + + CBC ONLY (05/05/2016) + +-------+ + + + | Component | Value | Ref Range | Performed | Pathologist | | | | | At | Signature | + +-------+ + + + | WHITE CELL | 4.8 | K/cu mm | [facility] | | | COUNT | | | LAB - | | | | | | [place] | | + +-------+ + + + | RED CELL | 4.79 | M/cu mm | [facility] | | | COUNT | | | LAB - | | | | | | [place] | | + +-------+ + + + | HEMOGLOBIN | 14.4 | g/dL | [facility] | | | | | | LAB - | | | | | | [place] | | + +-------+ + + + | HEMATOCRIT | 43.5 | % | [facility] | | | | | | LAB - | | | | | | [place] | | + +-------+ + + + | PLATELET | 324 | K/cu mm | [facility] | | | COUNT | | | LAB - | | | | | | [place] | | + +-------+ + + + + + | Specimen | + + | Blood - Blood | | (substance) | + + + + + + + | Performing | Address | City/State/Zipcode | Phone Number | | Organization | | | | + + + + + | [facility] - | [address] | [place] | | | [place] | [address] | [address] | | + + + + + documented in this encounter Visit Diagnoses Not on filedocumented in this encounter"
--- OUTSIDE RECORDS SUMMARY | ~2019-12-22 | XMS | Encounter Summary ---
Demographics + + + | Address | [address] | | | [place] [address] | + + + | Home Phone | | + + + | Preferred Language | Unknown | + + + | Marital Status | | + + + | Congregation Affiliation | CAT | + + + | Race | White | + + + | Ethnic Group | Not or | + + + Author + + + | Author | [facility] | + + + | Organization | [facility] | + + + | Address | Unknown | + + + | Phone | Unavailable | + + + Support + + + + + | Name | Relationship | Address | Phone | + + + + + | Roxana Bo | ECON | [address] | | | | | [place] | | | | | [address] | | + + + + + Care Team Providers + +------+ + | Care Sheet Heater Helper Name | Role | Phone | + +------+ + | Ventura Carrasquillo MD | PCP | | + +------+ + Reason for Visit + + + | Reason | Comments | + + + | Blood Test Results | Outside labs from [facility] 09/08/16 | + + + Encounter Details +--------+ + + + + | Date | Type | Department | Care Team | Description | +--------+ + + + + | 09/25/ | Documentati | Digestive Health | Lake Dennis MD | Blood Test Results | | 2017 | on | Center at [facility] [address] | [address] | (Outside labs from | | | | [address] | [place], [place] | [facility] 09/08/16) | | | | for Health and | [address] | | | | | [place] [address] | [phone] | | | | | [place], [place] | | | | | | [address] | | | | | | [phone] | | | +--------+ + + + [...] [address] | | | | | | [place], [place] | | | | | | [address] | | | | | | [phone] | | | | | | | | +--------+---------+ + + + documented as of this encounter Procedures + +--------+ + + + | Procedure Name | Priori | Date/Time | Associated Diagnosis | Comments | | | ty | | | | + +--------+ + + + | CBC, WITH | Routin | 09/08/2016 | | Results for this | | DIFFERENTIAL | e | 9:50 AM | | procedure are in the | | | | PDT | | results section. | + +--------+ + + + | LIVER SET | Routin | 09/08/2016 | | Results for this | | (AST,ALT,BILI | e | 9:50 AM | | procedure are in the | | TOTAL,BILI | | PDT | | results section. | | DIRECT,ALK | | | | | | PHOS,ALB,PROT TOTAL) | | | | | + +--------+ + + + documented in this encounter Results CBC, WITH DIFFERENTIAL (09/08/2016 9:50 AM PDT) + +-------+ + + + | Component | Value | Ref Range | Performed | Pathologist | | | | | At | Signature | + +-------+ + + + | WHITE CELL | 5.3 | K/cu mm | [facility] | | [address] | [place] | [phone] | | [place] | | | | + + + + + LIVER SET (AST,ALT,BILI TOTAL,BILI DIRECT,ALK PHOS,ALB,PROT TOTAL) (09/08/2016 9:50 AM PDT ) + +---------+ + + [...] + + + | ALK PHOS | 154 (H) | U/L | [facility] | | | | | | LAB - | | | | | | [place] | | + +---------+ + + + | TOTAL | 7 | g/dL | [facility] | | | [...] +---------+ + + + | ALBUMIN, | 3.7 [...] + + + | ALT (SGPT) | 17 | U/L | [facility] | | | [...] + + | [facility] - | [address] | [place] | [phone] | | [place] | | | | + + + + + documented in this encounter Visit Diagnoses Not on filedocumented in this encounter"
--- OUTSIDE RECORDS SUMMARY | ~2019-12-22 | XMS | Encounter Summary ---
Demographics + + + | Address | [address] | | | [place] [address] | + + + | Home Phone | | + + + | Preferred Language | Unknown | + + + | Marital Status | | + + + | Roman Catholic Affiliation | CAT | + + + | Race | White | + + + | Ethnic Group | Not or | + + + Author + + + | Author | [facility] | + + + | Organization | [facility] | + + + | Address | Unknown | + + + | Phone | Unavailable | + + + Support + + + + + | Name | Relationship | Address | Phone | + + + + + | Roxana Bo | ECON | [address] | | | | | [place] | | | | | [address] | | + + + + + Care Team Providers + +------+ + | Care Lobster Fisherman Name | Role | Phone | + +------+ + | Ventura Carrasquillo MD | PCP | | + +------+ + Reason for Visit + + + | Reason | Comments | + + + | Refill Request | [facility] | + + + Encounter Details +--------+--------+ + + + | Date | Type | Department | Care Team | Description | +--------+--------+ + + + | 04/07/ | Refill | Digestive Health | Lake Dennis MD | Refill Request | | 2013 | | Center at [facility] [address] | [address] | ([facility]) | | | | [address] | [place], [place] | | | | | for Health and | [address] | | | | | [place] [address] | [phone] | | | | | [place], [place] | | | | | | [address] | | | | | | [phone] | | | +--------+--------+ + + + [...] [address] | | | | | | [place], [place] | | | | | | [address] | | | | | | [phone] | | | | | | | | +--------+---------+ + + + documented as of this encounter Visit Diagnoses Not on filedocumented in this encounter"
--- OUTSIDE RECORDS SUMMARY | ~2019-12-22 | XMS | Encounter Summary ---
Demographics + + + | Address | [address] | | | [place] [address] | + + + | Home Phone [...] + | Roxana Bo | ECON | [address] | | | | | [place] | | | | | [address] | | + + + + + Care Team Providers + +------+ + | Care Gelatin Powder Mixer Name | Role | Phone | + +------+ + | Ventura Carrasquillo MD | PCP | | + +------+ + Reason for Visit +--------+ + | Reason | Comments | +--------+ + | Other | | +--------+ + Encounter Details +--------+ + + + + | Date | Type | Department | Care Team | Description | +--------+ + + + + | 01/06/ | MyChart | Digestive Health | Sonny, Lake, MD | RE: Test Results | | 2013 | Encounter | Center at [facility] [address] | [address] | | | | | [address] | [facility] [place] | | | | | for Health and | [address] | | | | | [facility] | [phone] | | | | | [place], [place] | | | | | | [address] | | | | | | [phone] | | | +--------+ + + + [...] [address] | | | | | | [place], [place] | | | | | | [address] | | | | | | [phone] | | | | | | | | +--------+---------+ + + + documented as of this encounter Visit Diagnoses Not on filedocumented in this encounter"
--- OUTSIDE RECORDS SUMMARY | ~2019-12-22 | XMS | Encounter Summary ---
Demographics + + + | Address | [address] | | | [place] [address] | + + + | Home Phone | | + + + | Preferred Language | Unknown | + + + | Marital Status | | + + + | Taoism Affiliation | CAT | + + + | Race | White | + + + | Ethnic Group | Not or | + + + Author + + + | Author | [facility] | + + + | Organization | [facility] | + + + | Address | Unknown | + + + | Phone | Unavailable | + + + Support + + + + + | Name | Relationship | Address | Phone | + + + + + | Roxana Bo | ECON | [address] | | | | | [place] | | | | | [address] | | + + + + + Care Team Providers + +------+ + | Care Telecommunication Engineer Name | Role | Phone | + +------+ + | Ventura Carrasquillo MD | PCP | | + +------+ + Encounter Details +--------+ + + + + | Date | Type | Department | Care Team | Description | +--------+ + + + + | 01/03/ | Abstract | Digestive Health | Lake Dennis MD | | | 2010 | | [place] [address] [address] | [address] | | | | | [address] | [facility] [place] | | | | | for Health and | [address] | | | | | [facility] [address] | [phone] | | | | | [place], [place] | | | | | | [address] | | | | | | [phone] | | | +--------+ + + + [...] [place] | | | | | | [place] | | | | | | [address] | | | | | | [phone] | | | | | | | | +--------+---------+ + + + documented as of this encounter Visit Diagnoses Not on filedocumented in this encounter"
--- OUTSIDE RECORDS SUMMARY | ~2019-12-22 | XMS | Encounter Summary ---
Demographics + + + | Address | [address] | | | [place] [address] | + + + | Home Phone | | + + + | Preferred Language | Unknown | + + + | Marital Status | | + + + | Yazidism Affiliation | CAT | + + + | Race | White | + + + | Ethnic Group | Not or | + + + Author + + + | Author | [facility] | + + + | Organization | [facility] | + + + | Address | Unknown | + + + | Phone | Unavailable | + + + Support + + + + + | Name | Relationship | Address | Phone | + + + + + | Roxana Bo | ECON | [address] | | | | | [place] | | | | | [address] | | + + + + + Care Team Providers + +------+ + | Care Cloud Engineer Name | Role | Phone | + +------+ + | Ventura Carrasquillo MD | PCP | | + +------+ + Reason for Visit + + + | Reason | Comments | + + + | Blood Test Results | 04/03/10 [facility] | + + + Encounter Details +--------+ + + + + | Date | Type | Department | Care Team | Description | +--------+ + + + + | 04/09/ | Documentati | Digestive Health | Lake Dennis MD | Blood Test Results | | 2009 | on | Center at [facility] [address] | [address] | (04/03/10 [facility] | | | | [address] | [place], [place] | Lab) | | | | for Health and | [address] | | | | | [place] [address] | [phone] | | | | | [place], [place] | | | | | | [address] | | | | | | [phone] | | | +--------+ + + + [...] [place] | | | | | | [facility] [place] | | | | | | [address] | | | | | | [phone] | | | | | | | | +--------+---------+ + + + documented as of this encounter Visit Diagnoses Not on filedocumented in this encounter"
--- OUTSIDE RECORDS SUMMARY | ~2019-12-22 | XMS | Encounter Summary ---
Demographics + + + | Address | [address] | | | [place] [address] | + + + | Home Phone | | + + + | Preferred Language | Unknown | + + + | Marital Status | | + + + | Scientologist Affiliation | CAT | + + + | Race | White | + + + | Ethnic Group | Not or | + + + Author + + + | Author | [facility] | + + + | Organization | [facility] | + + + | Address | Unknown | + + + | Phone | Unavailable | + + + Support + + + + + | Name | Relationship | Address | Phone | + + + + + | Roxana Bo | ECON | [address] | | | | | [place] | | | | | [address] | | + + + + + Care Team Providers + +------+ + | Care Regional Guide Name | Role | Phone | + +------+ + | Ventura Carrasquillo MD | PCP | | + +------+ + Encounter Details +--------+ + + + + | Date | Type | Department | Care Team | Description | +--------+ + + + + | 04/08/ | Documentati | Digestive Health | Clinic, | | | 2010 | on | Center at [facility] [address] | Gastroenterology | | | | | [address] [facility] | | | | | | for Health and | | | | | | Healing, [address] | | | | | | [place], [place] | | | | | | [address] | | | | | | [phone] | | | +--------+ + + + [...] [place] | | | | | | [address] | | | | | | [phone] | | | | | | | | +--------+---------+ + + + documented as of this encounter Visit Diagnoses Not on filedocumented in this encounter"
--- OUTSIDE RECORDS SUMMARY | ~2019-12-22 | XMS | Encounter Summary ---
Demographics + + + | Address | [address] | | | [place] [address] | + + + | Home Phone | | + + + | Preferred Language | Unknown | + + + | Marital Status | | + + + | Judaism Affiliation | CAT | + + + [...] + | Roxana Bo | ECON | [address] | | | | | [place] | | | | | [address] | | + + + + + Care Team Providers + +------+ + | Care Healthcare Project Manager Name | Role | Phone | + +------+ + | Ventura Carrasquillo MD | PCP | | + +------+ + Reason for Visit + + + | Reason | Comments | + + + | Follow-up visit | | + + + Office Visit - E/M Services (Routine) +--------+ + + + + + | Status | Reason | Specialty | Diagnoses / | Referred By | Referred To | | | | | Procedures | Contact | Contact | +--------+ + + + + + | Closed | Specialty | Hepatology | Diagnoses | Foreign, | Sonny, | | | Services | | Autoimmune | Ventura Schmidt, | MD Lake | | | Required | | hepatitis | MD | [address] | | | | | (HCC) | [place] | Ave | | | | | Procedures | FAMILY | [place], [place] | | | | | CONSULT TO | MEDICINE | [address] | | | | | HEPATOLOGY | [address] | Phone: | | | | | liver bx | [address] | [phone] | | | | | | [place], | Fax: | | | | | | [place] [address] | [phone] | | | | | | Phone: | | | | | | | [phone] | | | | | | | Fax: | | | | | | | [phone] | | +--------+ + + + + + Encounter Details +--------+---------+ + + + | Date | Type | Department | Care Team | Description | +--------+---------+ + + + | 03/28/ | Office | Digestive Health | Lake Ontiveros MD | Autoimmune hepatitis | | 2010 | Visit | Center at [facility] [address] | [address] | (HCC); Primary | | | | [address] | [facility] [place] | biliary cirrhosis | | | | for Health and | [address] | (HCC) | | | | [place] [address] | [phone] | | | | | [facility] [place] | | | | | | [address] | | | | | | [phone] | | | +--------+---------+ + + + [...] + + + | Blood Pressure | 143/84 | 07/29/2010 8:51 AM | | | | | PDT | | + + + + + | Pulse | 73 | 07/29/2010 8:51 AM | | | | | PDT | | + + + + + | Temperature | 36.4 C (97.5 F) | 07/29/2010 8:51 AM | | | | | PDT | | + + + + + | Respiratory Rate | 16 | 07/29/2010 8:51 AM | | | | | PDT | | + + + + + | Oxygen Saturation | - | - | | + + + + + | Inhaled Oxygen | - | - | | | Concentration | | | | + + + + + | Weight | 89.3 kg (196 lb 12.8 | 07/29/2010 8:51 AM | | | | oz) | PDT | | + + + + + | Height | 160 cm (5' 3") | 07/29/2010 8:51 AM | | | | | PDT | | + + + + + | Body Mass Index | 34.86 | 07/29/2010 8:51 AM | | | | | PDT | | + + + + + documented in this encounter Progress Notes Lake Ontiveros MD - 07/29/2010 9:11 AM PDTFormatting of this note might be different from bharat humphrey original. HEPATOLOGY FOLLOW UP VISIT Diagnoses: 1. 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 LYDIA at 1:320 and AMA 1:1280 1.2. Viral serologies are all negative. 1.3. Liver biopsy more predominantly autoimmune hepatitis vs. PBC. No fibrosis. Mild steato sis 1.4 Now on Ursodiol 900mg a day and Imuran 75mg a day with near normalization of liver test s 2. Obesity. 3. Labile hypertension. 4. Possible mild hyperlipidemia. 5. Joint complaints. 6. Hysterectomy, sinus surgery, and dental implant. Current outpatient prescriptions Medication Sig alendronate-vitamin D 70-2,800 mg-unit Oral Tablet Take 1 Tab by mouth every seven days . azathioprine 50 mg Oral Tablet Take 1.5 Tabs by mouth once daily. Administer after meal s. clindamycin 1 % Topical Swab Apply 1 Applicator to affected area once daily. Dzhzedxnjia-Ytzsbsdpz-Ywm C-Mn (GLUCOSAMINE CHONDROITIN MAXSTR) 500-400 mg Oral Capsule Take 2 Tabs by mouth once daily. breqcuwoynmp-scslzxw-nwfrcpd-folic acid chewable 200-0.4 mg Oral Tablet, Chewable Take 2 Tabs by mouth once daily. geazuhatuvba-wivglni-cgjy-lutein (CENTRUM SILVER ULTRA WOMEN'S) Oral Tablet Take 1 Tab by mouth once daily. ursodiol 300 mg Oral Capsule Take 3 Caps by mouth once daily at bedtime. Allergy: No Known Allergies Subjective: Ms. Bo [...] no Current alcohol use: no Currently employed: no Good social support: yes Objective: BP 143/84 | Pulse 73 | Temp (Src) 36.4 C (97.5 F) (Oral) | RR 16 | Ht 1.6 m (5' 3") | W t 89.268 kg (196 lb 12.8 oz) | BMI 34.86 kg/(m^2) General: Alert, NAD. HEENT: Normal, sclerae anicteric. Respiration: Normal CTAB, and good air exchange. Cardiac: Regular rate and rhythm. Abdomen: Soft, non-distended, normal bowel sounds, no hepatosplenomegaly, no fluid wave, no other masses noted. Neuro: Normal, alert with no asterixis. Psych: Normal speech pattern and thought process linear. Extremities: Normal, no edema, or skin discolorations. Skin: Warm and dry without rashes, lesions or spider hemangomota. Laboratory Data: SODIUM, PLASMA (LAB) (mmol/L) Date Value 07/02/2010 141 04/03/2010 137 01/02/2010 140 SODIUM-[facility] (mmol/L) Date Value 02/14/2009 144* CREATININE PLASMA (LAB) (mg/dL) Date Value 07/02/2010 0.81 04/03/2010 0.78 01/02/2010 0.80 CREATININE-[facility] (mg/dL) Date Value 02/14/2009 0.7 AST(SGOT) (U/L) Date Value 07/02/2010 17 04/03/2010 19 01/02/2010 23 AST-[facility] (U/L) Date Value 02/14/2009 69* ALT (SGPT) (U/L) Date Value 07/02/2010 9 04/03/2010 9 01/02/2010 11 ALT-[facility] (U/L) Date Value 02/14/2009 46 BILIRUBIN TOTAL (Transcutaneous Bilirubinometer) Date Value 07/02/2010 0.5 04/03/2010 0.6 01/02/2010 0.4 BILIRUBIN, TOTAL-[facility] (mg/dL) Date Value 02/14/2009 0.6 ALBUMIN, PLASMA (LAB) (g/dL) Date Value 07/02/2010 4.0 04/03/2010 3.8 01/02/2010 3.6 ALBUMIN-[facility] (g/dL) Date Value 02/14/2009 3.4 WHITE CELL COUNT (K/cu mm) Date Value 07/02/2010 5.7 04/03/2010 5.9 01/02/2010 5.9 WHITE CELL COUNT - [facility] (K/cu mm) Date Value 02/14/2009 5.4 HEMOGLOBIN (g/dL) Date Value 07/02/2010 14.6 04/03/2010 14.1 01/02/2010 14.6 HEMOGLOBIN, BLOOD - [facility] (g/dL) Date Value 02/14/2009 14.0 MCV (fL) Date Value 02/20/2009 Not Recd MCV - [facility] (fL) Date Value 02/14/2009 89.7 PLATELET COUNT (K/cu mm) Date Value 07/02/2010 313 04/03/2010 287 01/02/2010 267 PLATELET COUNT, BLOOD - [facility] (K/cu mm) Date Value 02/14/2009 366 Assessment/Plan: Liver tests cont to be normal. She is doing quite well from a liver standpoint. Plan 1) reduce Imuran to 50mg a day and cont Ursodiol 900mg a day 2) CMP, CBC, plts, diff, INR [id number] 3) RTC in 6 months Counseling Time: I spent more than 25 minutes with this patient, over half of which was sp ent in education and counseling the patient regarding management of medications and associat ed toxicities.. LAKE ONTIVEROS MD documented in this encou nter Plan of Treatment +--------+---------+ + + + | Date | Type | Specialty | Care Team | Description | +--------+---------+ + + + | 01/26/ | Office | Hepatology | Lake Ontiveros MD | | | 2019 | Visit | | [address] | | | | | | [place], [place] | | | | | | [address] | | | | | | [phone] | | | | | | | | +--------+---------+ + + + documented as of this encounter Visit Diagnoses + + | Diagnosis | + + | Autoimmune hepatitis (HCC) Autoimmune hepatitis | + + | Primary biliary cirrhosis (HCC) Biliary cirrhosis | + + documented in this encounter
--- OUTSIDE RECORDS SUMMARY | ~2019-12-22 | XMS | Encounter Summary ---
Demographics + + + | Address | [address] | | | [place] [address] | + + + | Home Phone | | + + + | Preferred Language | Unknown | + + + | Marital Status | | + + + | Jewish Affiliation | CAT | + + + | Race | White | + + + | Ethnic Group | Not or | + + + Author + + + | Author | [facility] | + + + | Organization | [facility] | + + + | Address | Unknown | + + + | Phone | Unavailable | + + + Support + + + + + | Name | Relationship | Address | Phone | + + + + + | Roxana Bo | ECON | [address] | | | | | [place] | | | | | [address] | | + + + + + Care Team Providers + +------+ + | Care Environmental Epidemiologist Name | Role | Phone | + +------+ + | Ventura Carrasquillo MD | PCP | | + +------+ + Reason for Visit + + + | Reason | Comments | + + + | Blood Test Results | [facility] 01/02/15 Lab Results (AST, alk phos, protein, | | | alb, bili, ALT, CBC) | + + + Encounter Details +--------+ + + + + | Date | Type | Department | Care Team | Description | +--------+ + + + + | 01/03/ | Abstract | Digestive Health | Lake Dennis MD | Blood Test Results | | 2014 | | Center at [facility] [address] | [address] | ([facility] | | | | [address] | [place], [place] | 01/02/15 Lab Results | | | | for Health and | [address] | (AST, alk phos, | | | | Healing, [address] | [phone] | protein, alb, bili, | | | | [place], [place] | | ALT, CBC)) | | | | [address] | | | | | | [phone] | | | +--------+ + + + [...] [address] | | | | | | [place], [place] | | | | | | [address] | | | | | | [phone] | | | | | | | | +--------+---------+ + + + documented as of this encounter Visit Diagnoses Not on filedocumented in this encounter"
--- OUTSIDE RECORDS SUMMARY | ~2019-12-22 | XMS | Encounter Summary ---
Demographics + + + | Address | [address] | | | [place] [address] | + + + | Home Phone | | + + + | Preferred Language | Unknown | + + + | Marital Status | | + + + | Mosque Affiliation | CAT | + + + [...] + | Roxana Bo | ECON | [address] | | | | | [place] | | | | | [address] | | + + + + + Care Team Providers + +------+ + | Care Records And Tape Recordings Engineer Name | Role | Phone | + +------+ + | No Pcp Per Patient | PCP | Unavailable | + +------+ + Reason for Visit + + + | Reason | Comments | + + + | Blood Test Results | [facility] 05/07/15 Lab Results (CBC, AST..) | + + + Encounter Details +--------+ + + + + | Date | Type | Department | Care Team | Description | +--------+ + + + + | 05/23/ | Abstract | Digestive Health | Lake Dennis MD | Blood Test Results | | 2015 | | Center at [facility] [address] | [address] | ([facility] | | | | [facility] | [place], [place] | 05/07/15 Lab Results | | | | for Health and | [address] | (CBC, AST..)) | | | | [facility] [address] | [phone] | | | | | [place], [place] | | | | | | [address] | | | | | | [phone] | | | +--------+ + + + [...] 2019 | Visit | | [address] | | | | | | [place], [place] | | | | | | [address] | | | | | | [phone] | | | | | | | | +--------+---------+ + + + documented as of this encounter Visit Diagnoses Not on filedocumented in this encounter"
--- OUTSIDE RECORDS SUMMARY | ~2019-12-22 | XMS | Encounter Summary ---
Demographics + + + | Address | [address] | | | [place] [address] | + + + | Home Phone | | + + + | Preferred Language | Unknown | + + + | Marital Status | | + + + | Episcopal Affiliation | CAT | + + + | Race | White | + + + | Ethnic Group | Not or | + + + Author + + + | Author | [facility] | + + + | Organization | [facility] | + + + | Address | Unknown | + + + | Phone | Unavailable | + + + Support + + + + + | Name | Relationship | Address | Phone | + + + + + | Roxana Bo | ECON | [address] | | | | | [place] | | | | | [address] | | + + + + + Care Team Providers + +------+ + | Care Metal Plater Name | Role | Phone | + +------+ + | Ventura Carrasquillo MD | PCP | | + +------+ + Reason for Visit + + + | Reason | Comments | + + + | Follow-up encounter | | + + + Benefits Check (Routine) +--------+--------+ + + + + | Status | Reason | Specialty | Diagnoses / | Referred By | Referred To | | | | | Procedures | Contact | Contact | +--------+--------+ + + + + | Closed | | Hepatology | | No | Sonny, | | | | | | Referring | MD Lake | | | | | | Provider Per | [address] | | | | | | Patient NO | Ave | | | | | | REFERRING | [place], [place] | | | | | | PROVIDER PER | [address] | | | | | | PT | Phone: | | | | | | | [phone] | | | | | | | Fax: | | | | | | | [phone] | +--------+--------+ + + + + Encounter Details +--------+---------+ + + + | Date | Type | Department | Care Team | Description | +--------+---------+ + + + | 02/10/ | Office | Digestive Health | Lake Dennis MD | Autoimmune hepatitis | | 2016 | Visit | Center at [facility] [address] | [address] | (HCC) (Primary Dx); | | | | [address] | [place], [place] | Primary biliary | | | | for Health and | [address] | cirrhosis (HCC) | | | | Healing, [address] | [phone] | | | | | [place], [place] | | | | | | [address] | | | | | | [phone] | | | +--------+---------+ + + + [...] + + + | Blood Pressure | 155/88 | 02/11/2016 12:25 PM | | | | | PDT | | + + + + + | Pulse | 79 | 02/11/2016 12:25 PM | | | | | PDT | | + + + + + | Temperature | 36.7 C (98.1 F) | 02/11/2016 12:25 PM | | | | | PDT | | + + + + + | Respiratory Rate | 16 | 02/11/2016 12:25 PM | | | | | PDT | | + + + + + | Oxygen Saturation | 100% | 02/11/2016 12:25 PM | | | | | PDT | | + + + + + | Inhaled Oxygen | - | - | | | Concentration | | | | + + + + + | Weight | 81.2 kg (179 lb 1.6 | 02/11/2016 12:25 PM | | | | oz) | PDT | | + + + + + | Height | 160 cm (5' 3") | 02/11/2016 12:25 PM | | | | | PDT | | + + + + + | Body Mass Index | 31.73 | 02/11/2016 12:25 PM | | | | | PDT | | + + + + + documented in this encounter Progress Notes Lake Dennis MD - 02/11/2016 12:15 PM PDTFormatting of this note might be different from e original. HEPATOLOGY FOLLOW UP VISIT Diagnoses (Problem list carried forward from previous note and updated 02/11/2016): 1. 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 Administer after meal s. CALCIUM CARBONATE/VITAMIN D3 (VITAMIN D-3 ORAL) Take 1,000 Units by mouth once daily. cephALEXin 500 mg Oral capsule Take 4 caps by mouth prior to procedure. cholecalciferol, Vitamin D3, (VITAMIN D3) 1,000 unit oral tablet Take 1,000 Units by [facility] once daily. wtifcddqqrar-zxjhgzr-pfhuerz-folic acid chewable 200-0.4 mg Oral Tablet, Chewable Take 2 Tabs by mouth once daily. efqxrhzibclc-coyxbhr-jcxa-lutein (CENTRUM SILVER ULTRA WOMEN'S) Oral Tablet Take 1 Tab by mouth once daily. [place]-3 Fatty Acids-Vitamin E (FISH OIL) 1,000 mg Oral capsule Take 2 Caps by mouth onc e daily. ursodiol 300 mg oral capsule Take 3 capsules by mouth once daily at bedtime. No current facility-administered medications for this visit. Allergy: No Known Allergies Subjective: Ms. Anupam is seen in Hepatology clinic for follow up of Autoimmune Hepatitis. She states that her current symptoms are fatigue. She denies fluid accumulation in feet/ankles, fluid accumulation in abdomen, blood in bowel movements or black tarry bm's and memory or concentration changes. Review of Systems: Eyes: negative. Ears, Nose, Throat: negative. Respiratory: negative. Musculoskeletal: negative. Cardiovascular: negative. Gastrointestinal: negative. Neurologic: negative. Skin: negative. Psychological: negative. Heme/Lymphatic: negative. Endocrine: negative Social History: Currently smoking: no Current alcohol use: no Currently employed: no Good social support: yes Objective: There were no vitals taken for this visit. General: Alert, NAD. HEENT: No muscle wasting, [...] or spider hemangomota. Laboratory Data: Recent Labs 05/07/15 1009 09/03/15 1322 01/03/16 0900 AST 22 27 21 ALT 13 19 12 TBILI 0.6 0.6 0.5 ALB 3.8 4.0 3.9 WBC 5.8 4.9 4.2* HB 14.8 14.5 14 PLT 355 337 347 Assessment/Plan: Patient doing well from a liver standpoint. Current liver tests continue to be in the ju l range. No evidence of progressive liver disease. Plan 1) cont current meds 2) q8lquiwj liver set, CBC 3) RTC in 1 yr 4) refilled Imuran and Ursodiol Counseling Time: I spent more than 16 minutes with the patient. Greater than 50% of the ti me was spent in education and counseling the patient regarding management of medications and associated toxicities.. Lake Dennis MD documented in this encoun ter Plan of Treatment +--------+---------+ + + + | Date | Type | Specialty | Care Team | Description | +--------+---------+ + + + | 01/26/ | Office | Hepatology | Lake Dennis MD | | | 2019 | Visit | | [address] | | | | | | [place], [place] | | | | | | [address] | | | | | | [phone] | | | | | | | | +--------+---------+ + + + documented as of this encounter Visit Diagnoses + + | Diagnosis | + + | Autoimmune hepatitis (HCC) - Primary Autoimmune hepatitis | + + | Primary biliary cirrhosis (HCC) Biliary cirrhosis | + + documented in this encounter
--- OUTSIDE RECORDS SUMMARY | ~2019-12-22 | XMS | Encounter Summary ---
Demographics + + + | Address | [address] | | | [place] [address] | + + + | Home Phone | | + + + | Preferred Language | Unknown | + + + | Marital Status | | + + + | Uatsdin Affiliation | CAT | + + + [...] + | Roxana Bo | ECON | [address] | | | | | [place] | | | | | [address] | | + + + + + Care Team Providers + +------+ + | Care Wildlife Veterinarian Name | Role | Phone | + +------+ + | Ventura Carrasquillo MD | PCP | | + +------+ + Reason for Visit + + + | Reason | Comments | + + + | Return Patient | | + + + Benefits Check (Routine) +--------+--------+ + + + + | Status | Reason | Specialty | Diagnoses / | Referred By | Referred To | | | | | Procedures | Contact | Contact | +--------+--------+ + + + + | Closed | | Hepatology | Diagnoses | No | Sonny, | | | | | Autoimmune | Referring | MD Lake | | | | | hepatitis | Provider Per | [address] | | | | | Primary | Patient NO | Ave | | | | | biliary | REFERRING | [place], [place] | | | | | cirrhosis | PROVIDER PER | [address] | | | | | Procedures | PT | Phone: | | | | | [place] | | [phone] | | | | | OFFICE/OUTPT | | Fax: | | | | | | | [phone] | | | | | VISIT,EST,LE | | | | | | | VL IV | | | +--------+--------+ + + + + Encounter Details +--------+---------+ + + + | Date | Type | Department | Care Team | Description | +--------+---------+ + + + | 01/26/ | Office | Digestive Health | Lake Dennis MD | Primary biliary | | 2017 | Visit | Center at [facility] [address] | [address] | cirrhosis (HCC) | | | | [address] | [place], [place] | (Primary Dx); | | | | for Health and | [address] | Autoimmune hepatitis | | | | [facility] 2 | [phone] | ([facility]) | | | | [place], [place] | | | | | | [address] | | | | | | [phone] | | | +--------+---------+ + + + [...] + + + | Blood Pressure | 147/97 | 01/26/2017 12:24 PM | | | | | PDT | | + + + + + | Pulse | 107 | 01/26/2017 12:24 PM | | | | | PDT | | + + + + + | Temperature | 36.8 C (98.2 F) | 01/26/2017 12:24 PM | | | | | PDT | | + + + + + | Respiratory Rate | - | - | | + + + + + | Oxygen Saturation | 96% | 01/26/2017 12:24 PM | | | | | PDT | | + + + + + | Inhaled Oxygen | - | - | | | Concentration | | | | + + + + + | Weight | 86.5 kg (190 lb 9.6 | 01/26/2017 12:24 PM | | | | oz) | PDT | | + + + + + | Height | 160 cm (5' 3") | 01/26/2017 12:24 PM | | | | | PDT | | + + + + + | Body Mass Index | 33.76 | 01/26/2017 12:24 PM | | | | | PDT | | + + + + + documented in this encounter Progress Notes Lake Dennis MD - 01/26/2017 1:00 PM PDTFormatting of this note might be different from bharat humphrey original. 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 LYDIA at 1:320 and AMA 1:1280 1.2. Viral serologies are all negative. 1.3. Liver biopsy more predominantly autoimmune hepatitis vs. PBC. No fibrosis. Mild steato sis 1.4 Now on Ursodiol 900mg a day and Imuran 50mg a day with normalization of liver tests wit h alk phos <1.67 x upper limit or normal (ULN) 2. Obesity. 3. Labile hypertension. 4. Possible mild hyperlipidemia. 5. Joint complaints. 6. Hysterectomy, sinus surgery, and dental implant. Current Outpatient Prescriptions Medication Sig alendronate 70 mg oral tablet alendronate-vitamin D 70-2,800 mg-unit Oral Tablet Take 1 Tab by mouth every seven days . amoxicillin-clavulanate 875-125 mg oral tablet Take 1 tablet by mouth two times daily. azaTHIOprine 50 mg oral tablet Take 1 tablet by mouth once daily. Administer after meal s. Indications: Autoimmune Hepatitis CALCIUM CARBONATE/VITAMIN D3 (VITAMIN D-3 ORAL) Take 1,000 Units by mouth once daily. cephALEXin 500 mg Oral capsule Take 4 caps by mouth prior to procedure. cholecalciferol, Vitamin D3, (VITAMIN D3) 1,000 unit oral tablet Take 1,000 Units by [facility] once daily. ztojyitthyiy-eqqdczu-wssf-lutein (CENTRUM SILVER ULTRA WOMEN'S) Oral Tablet Take 1 Tab by mouth once daily. Moore-3 Fatty Acids-Vitamin E (FISH OIL) 1,000 mg Oral capsule Take 2 Caps by mouth onc e daily. ursodiol 300 mg oral capsule Take 3 capsules by mouth once daily at bedtime. Indication s: Primary Biliary Cirrhosis VENTOLIN HFA 90 mcg/actuation inhalation HFA aerosol inhaler Inhale 2 puffs by mouth ev theo four hours as needed. for cough or wheezing No current facility-administered medications for this visit. Allergy: Allergies Allergen Reactions Doxycycline Dizziness and Nausea Subjective: Ms. Bo is seen in Hepatology clinic for follow up of Autoimmune Hepatitis and Primary Biliary Cholangitis. She states that her current symptoms are fatigue. She denies fluid accumulation in feet/ankles, fluid accumulation in abdomen, blood in bowel movements or black tarry bm's and memory or concentration changes. Review of Systems: Eyes: negative. Ears, Nose, Throat: negative. Respiratory: negative. Musculoskeletal: negative. Cardiovascular: negative. Gastrointestinal: negative. Genitourinary: negative. Neurologic: negative. Skin: negative. Psychological: negative. Heme/Lymphatic: negative. Endocrine: negative Social History: Currently smoking: no Current alcohol use: no Currently employed: no Good social support: yes Objective: BP 147/97 | Pulse 107 | Temp 36.8 C (98.2 F) | Ht 1.6 m (5' 3") | Wt 86.5 kg (190 lb 9. 6 oz) | SpO2 96% | BMI 33.76 kg/(m^2) General: Alert, NAD. HEENT: No muscle [...] or spider hemangomota. Laboratory Data: Recent Labs 05/05/16 09/08/16 0950 01/01/17 AST 22 22 20 ALT 13 17 11 TBILI 0.6 0.6 0.6 ALB 3.6 3.7 3.6 WBC 4.8 5.3 5.2 HB 14.4 14.4 13.8 PLT 324 373 357 Assessment/Plan: Patient overall doing well with stable labs over this past year with Imuran and Ursodiol. Plan 1) cont current meds 2) CMP, CBC [id number] 3) RTC in 1 yr Counseling Time: I spent more than 15 minutes with the patient. Greater than 50% [...] Rogers | | | | | | [place], [place] | | | | | | [address] | | | | | | [phone] | | | | | | | | +--------+---------+ + + + documented as of this encounter Visit Diagnoses + + | Diagnosis | + + | Primary biliary cirrhosis (HCC) - Primary Biliary cirrhosis | + + | Autoimmune hepatitis (HCC) Autoimmune hepatitis | + + documented in this encounter
--- OUTSIDE RECORDS SUMMARY | ~2019-12-22 | XMS | Encounter Summary ---
Demographics + + + | Address | [address] | | | [place] [address] | + + + | Home Phone | | + + + | Preferred Language | Unknown | + + + | Marital Status | | + + + | Taoist Affiliation | CAT | + + + | Race | White | + + + | Ethnic Group | Not or | + + + Author + + + | Author | [facility] | + + + | Organization | [facility] | + + + | Address | Unknown | + + + | Phone | Unavailable | + + + Support + + + + + | Name | Relationship | Address | Phone | + + + + + | Roxana Bo | ECON | [address] | | | | | [place] | | | | | [address] | | + + + + + Care Team Providers + +------+ + | Care Construction Helper Name | Role | Phone | + +------+ + | No Pcp Per Patient | PCP | Unavailable | + +------+ + Reason for Visit +--------+ + | Reason | Comments | +--------+ + | Other | Standing labs orders. | +--------+ + Encounter Details +--------+ + + + + | Date | Type | Department | Care Team | Description | +--------+ + + + + | 10/05/ | [employer] | Digestive Health | Lake Dennis MD | Autoimmune hepatitis | | 2015 | | Center at [facility] [address] | [address] | (HCC) (Primary Dx); | | | | [address] | [place], [place] | Primary biliary | | | | for Health and | [address] | cirrhosis (HCC) | | | | [place] [address] | [phone] | | | | | [place], [place] | | | | | | [address] | | | | | | [phone] | | | +--------+ + + + [...] Rogers | | | | | | [place], [place] | | | | | | [address] | | | | | | [phone] | | | | | | | | +--------+---------+ + + + documented as of this encounter Visit Diagnoses + + | Diagnosis | + + | Autoimmune hepatitis (HCC) - Primary Autoimmune hepatitis | + + | Primary biliary cirrhosis (HCC) Biliary cirrhosis | + + documented in this encounter"
--- OUTSIDE RECORDS SUMMARY | ~2019-12-22 | XMS | Encounter Summary ---
Demographics + + + | Address | [address] | | | [place] [address] | + + + | Home Phone | | + + + | Preferred Language | Unknown | + + + | Marital Status | | + + + | Anabaptism Affiliation | CAT | + + + [...] + | Roxana Bo | ECON | [address] | | | | | [place] | | | | | [address] | | + + + + + Care Team Providers + +------+ + | Care Coroner/Medical Examiner Name | Role | Phone | + +------+ + | Ventura Carrasquillo MD | PCP | | + +------+ + Encounter Details +--------+ + + + + | Date | Type | Department | Care Team | Description | +--------+ + + + + | 01/05/ | Documentati | Digestive Health | Lake Dennis MD | | | 2019 | on | Center at [facility] [address] | [address] | | | | | [address] | [place], [place] | | | | | for Health and | [address] | | | | | [facility] [address] | [phone] | | | | | [place], [place] | | | | | | [address] | | | | | | [phone] | | | +--------+ + + + [...] Rogers | | | | | | [place], [place] | | | | | | [address] | | | | | | [phone] | | | | | | | [...] + + | [facility] - | [address] | [place], [place] | [phone] | | [place] | | | | [...] LAB - | [address] | [place] | [phone] | | [place] | | | | + + + + + documented in this encounter Visit Diagnoses Not on filedocumented in this encounter"
--- OUTSIDE RECORDS SUMMARY | ~2019-12-22 | XMS | Encounter Summary ---
Demographics + + + | Address | [address] | | | [place] [address] | + + + | Home Phone | | + + + | Preferred Language | Unknown | + + + | Marital Status | | + + + | Temple Affiliation | CAT | + + + | Race | White | + + + | Ethnic Group | Not or | + + + Author + + + | Author | [facility] | + + + | Organization | [facility] | + + + | Address | Unknown | + + + | Phone | Unavailable | + + + Support + + + + + | Name | Relationship | Address | Phone | + + + + + | Roxana Bo | ECON | [address] | | | | | [place] | | | | | [address] | | + + + + + Care Team Providers + +------+ + | Care Flat Locker Name | Role | Phone | + [...] | +--------+ + + + + | 01/02/ | Abstract | Digestive Health | Lake Dennis MD | Blood Test Results | | 2017 | | Center at [facility] [address] | [address] | | | | | [address] | [place], [place] | | | | | for Health and | [address] | | | | | [facility] 2 | [phone] | | | | | [place], [place] | | | | | | [address] | | | | | | [phone] | | | +--------+ + + + [...] Rogers | | | | | | [place], [place] | | | | | | [address] | | | | | | [phone] | | | | | | | | +--------+---------+ + + + documented as of this encounter Visit Diagnoses Not on filedocumented in this encounter"
--- OUTSIDE RECORDS SUMMARY | ~2019-12-22 | XMS | Encounter Summary ---
Demographics + + + | Address | [address] | | | [place] [address] | + + + | Home Phone [...] + | Roxana Bo | ECON | [address] | | | | | [place] | | | | | [address] | | + + + + + Care Team Providers + +------+ + | Care Nursing Home Physician Name | Role | Phone | + +------+ + | No Pcp Per Patient | PCP | Unavailable | + +------+ + Reason for Visit + + + | Reason | Comments | + + + | Blood Test Results | Outside labs from [facility] 05/07/15. | + + + Encounter Details +--------+ + + + + | Date | Type | Department | Care Team | Description | +--------+ + + + + | 05/23/ | Documentati | Digestive Health | Lake Dennis MD | Blood Test Results | | 2016 | on | Center at [facility] [address] | [address] | (Outside labs from | | | | [address] | [place], [place] | [facility] 05/07/15.) | | | | for Health and | [address] | | | | | [place], [facility] | [phone] | | | | | [place], [place] | | | | | | [address] | | | | | | [phone] | | | +--------+ + + + [...] Rogers | | | | | | [place], [place] | | | | | | [address] | | | | | | [phone] | | | | | | | | +--------+---------+ + + + documented as of this encounter Procedures + +--------+ + + + | Procedure Name | Priori | Date/Time | Associated Diagnosis | Comments | | | ty | | | | + +--------+ + + + | CBC, WITH | Routin | 05/07/2015 | | Results for this | | DIFFERENTIAL | e | 10:09 AM | | procedure are in the | | | | PST | | results section. | + +--------+ + + + | LIVER SET | Routin | 05/07/2015 | | Results for this | | (AST,ALT,BILI | e | 10:09 AM | | procedure are in the | | TOTAL,BILI | | PST | | results section. | | DIRECT,ALK | | | | | | PHOS,ALB,PROT TOTAL) | | | | | + +--------+ + + + documented in this encounter Results LIVER SET (AST,ALT,BILI TOTAL,BILI DIRECT,ALK PHOS,ALB,PROT TOTAL) (05/07/2015 10:09 AM PST ) + +---------+ + + + | [...] [address] | [place] | [phone] | | [place] | | | | + + + + + CBC, WITH DIFFERENTIAL (05/07/2015 10:09 AM PST) + + + + + + | Component | Value | Ref Range | Performed | Pathologist | | | | | At | Signature | + + + + + + | WHITE CELL | 5.8 | K/cu mm | [facility] | | | COUNT | | | LAB - | | | | | | [place] | | + + + + + + | HEMOGLOBIN | 14.8 | g/dL | [facility] | | | | | | LAB - | | | | | | [place] | | + + + + + + | HEMATOCRIT | 45.1 (H) | % | [facility] | | | | | | LAB - | | | | | | [place] | | + + + + + + | PLATELET | 355 | K/cu mm | [facility] | | [...] + + | [facility] - | [address] | [place] | [phone] | | [place] | | | | + + + + + documented in this encounter Visit Diagnoses Not on filedocumented in this encounter"
--- OUTSIDE RECORDS SUMMARY | ~2019-12-22 | XMS | Encounter Summary ---
Demographics + + + | Address | [address] | | | [place] [address] | + + + | Home Phone | | + + + | Preferred Language | Unknown | + + + | Marital Status | | + + + | Tenriism Affiliation | CAT | + + + | Race | White | + + + | Ethnic Group | Not or | + + + Author + + + | Author | [facility] | + + + | Organization | [facility] | + + + | Address | Unknown | + + + | Phone | Unavailable | + + + Support + + + + + | Name | Relationship | Address | Phone | + + + + + | Roxana Bo | ECON | [address] | | | | | [place] | | | | | [address] | | + + + + + Care Team Providers + +------+ + | Care Director Women Name | Role | Phone | + +------+ + | Ventura Carrasquillo MD | PCP | | + +------+ + Reason for Visit + + + | Reason | Comments | + + + | Medical Records | | | Review | | + + + Encounter Details +--------+ + + + + | Date | Type | Department | Care Team | Description | +--------+ + + + + | 05/10/ | Abstract | Digestive Health | Lake Dennis MD | Medical Records | | 2019 | | Center at [facility] [address] | [address] | Review | | | | [address] | [place], [place] | | | | | for Health and | [address] | | | | | [place] [address] | [phone] | | | | | [place], [place] | | | | | | [address] | | | | | | [phone] | | | +--------+ + + + [...] [place] | | | | | | [place], [place] | | | | | | [address] | | | | | | [phone] | | | | | | | | +--------+---------+ + + + documented as of this encounter Visit Diagnoses Not on filedocumented in this encounter"
--- OUTSIDE RECORDS SUMMARY | ~2019-12-22 | XMS | Encounter Summary ---
Demographics + + + | Address | [address] | | | [place] [address] | + + + | Home Phone | | + + + | Preferred Language | Unknown | + + + | Marital Status | | + + + | Buddhism Affiliation | CAT | + + + | Race | White | + + + | Ethnic Group | Not or | + + + Author + + + | Author | [facility] | + + + | Organization | [facility] | + + + | Address | Unknown | + + + | Phone | Unavailable | + + + Support + + + + + | Name | Relationship | Address | Phone | + + + + + | Roxana Bo | ECON | [address] | | | | | [place] | | | | | [address] | | + + + + + Care Team Providers + +------+ + | Care Folding Machine Feeder Name | Role | Phone | + +------+ + | Ventura Carrasquillo MD | PCP | | + +------+ + Reason for Visit + + + | Reason | Comments | + + + | Nasal congestion | | + + + | Cough | | + + + Encounter Details +--------+ + + + + | Date | Type | Department | Care Team | Description | +--------+ + + + + | 05/17/ | Telephone | Digestive Health | Lake Dennis MD | Nasal congestion; | | 2010 | | Center at [facility] [address] | [address] | Cough | | | | [address] | [place], [place] | | | | | for Health and | [address] | | | | | Healing, [address] | [phone] | | | | | [place], [place] | | | | | | [address] | | | | | | [phone] | | | +--------+ + + + [...] Rogers | | | | | | [place], [place] | | | | | | [address] | | | | | | [phone] | | | | | | | | +--------+---------+ + + + documented as of this encounter Visit Diagnoses Not on filedocumented in this encounter"
--- OUTSIDE RECORDS SUMMARY | ~2019-12-22 | XMS | Encounter Summary ---
Demographics + + + | Address | [address] | | | [place] [address] | + + + | Home Phone [...] + + | Author | [facility] | + + + | Organization | [facility] | + + + | Address | Unknown | + + + | Phone | Unavailable | + + + Support + + + + + | Name | Relationship | Address | Phone | + + + + + | Roxana Bo | ECON | [address] | | | | | [place] | | | | | [address] | | + + + + + Care Team Providers + +------+ + | Care Flight Engineer Helicopter Name | Role | Phone | + +------+ + | Ventura Carrasquillo MD | PCP | | + +------+ + Encounter Details +--------+ + + + + | Date | Type | Department | Care Team | Description | +--------+ + + + + | 11/12/ | MyChart | Digestive Health | Lake Dennis MD | RE: med | | 2017 | Encounter | Center at [facility] [address] | [address] | request | | | | [address] | [place], [place] | | | | | for Health and | [address] | | | | | Healing, [address] | [phone] | | | | | [place], [place] | | | | | | [address] | | | | | | [phone] | | | +--------+ + + + [...] Rogers | | | | | | [place], [place] | | | | | | [address] | | | | | | [phone] | | | | | | | | +--------+---------+ + + + documented as of this encounter Visit Diagnoses Not on filedocumented in this encounter"
--- OUTSIDE RECORDS SUMMARY | ~2019-12-22 | XMS | Encounter Summary ---
Demographics + + + | Address | [address] | | | [place] [address] | + + + | Home Phone [...] + | Roxana Bo | ECON | [address] | | | | | [place] | | | | | [address] | | + + + + + Care Team Providers + +------+ + | Care Harness Racing Handicapper Name | Role | Phone | + +------+ + | Ventura Carrasquillo MD | PCP | | + +------+ + Encounter Details +--------+ + + + + | Date | Type | Department | Care Team | Description | +--------+ + + + + | 04/01/ | MyChart | Digestive Health | Lake Dennis MD | RE: Bloodwork orders | | 2019 | Encounter | Center at [facility] [address] | [address] | | | | | [address] | [place], [place] | | | | | for Health and | [address] | | | | | Healing, [address] | [phone] | | | | | [place], [place] | | | | | | [address] | | | | | | [phone] | | | +--------+ + + + [...] Rogers | | | | | | [place], [place] | | | | | | [address] | | | | | | [phone] | | | | | | | | +--------+---------+ + + + documented as of this encounter Visit Diagnoses Not on filedocumented in this encounter"
--- OUTSIDE RECORDS SUMMARY | ~2019-12-22 | XMS | Encounter Summary ---
Demographics + + + | Address | [address] | | | [place] [address] | + + + | Home Phone | | + + + | Preferred Language | Unknown | + + + | Marital Status | | + + + | Shinto Affiliation | CAT | + + + [...] + | Roxana Bo | ECON | [address] | | | | | [place] | | | | | [address] | | + + + + + Care Team Providers + +------+ + | Care Food Technology Teacher Name | Role | Phone | + +------+ + | No Pcp Per Patient | PCP | Unavailable | + +------+ + Encounter Details +--------+ + + + + | Date | Type | Department | Care Team | Description | +--------+ + + + + | 09/09/ | MyChart | Digestive Health | Lake Dennis MD | RE: Bloodwork | | 2016 | Encounter | Center at [facility] [address] | [address] | results | | | | [address] | [facility] [place] | | | | | for Health and | [address] | | | | | Healing, [address] | [phone] | | | | | [place], [place] | | | | | | [address] | | | | | | [phone] | | | +--------+ + + + [...] [place] | | | | | | [address] | | | | | | [phone] | | | | | | | | +--------+---------+ + + + documented as of this encounter Visit Diagnoses Not on filedocumented in this encounter"
--- OUTSIDE RECORDS SUMMARY | ~2019-12-22 | XMS | Encounter Summary ---
Demographics + + + | Address | [address] | | | [place] [address] | + + + | Home Phone | | + + + | Preferred Language | Unknown | + + + | Marital Status | | + + + | Samaritan Affiliation | CAT | + + + | Race | White | + + + | Ethnic Group | Not or | + + + Author + + + | Author | [facility] | + + + | Organization | [facility] | + + + | Address | Unknown | + + + | Phone | Unavailable | + + + Support + + + + + | Name | Relationship | Address | Phone | + + + + + | Roxana Bo | ECON | [address] | | | | | [place] | | | | | [address] | | + + + + + Care Team Providers + +------+ + | Care Medical Service Representative Name | Role | Phone | + +------+ + | Ventura Carrasquillo MD | PCP | | + +------+ + Encounter Details +--------+ + + + + | Date | Type | Department | Care Team | Description | +--------+ + + + + | 03/25/ | Abstract | Digestive Health | Lake Dennis MD | | | 2010 | | [place] [address] [address] | [address] | | | | | [address] | [facility] [place] | | | | | for Health and | [address] | | | | | [facility], [address] | [phone] | | | | | [place], [place] | | | | | | [address] | | | | | | [phone] | | | +--------+ + + + [...] [place] | | | | | | [place] | | | | | | [address] | | | | | | [phone] | | | | | | | | +--------+---------+ + + + documented as of this encounter Visit Diagnoses Not on filedocumented in this encounter"
--- OUTSIDE RECORDS SUMMARY | ~2019-12-22 | XMS | Encounter Summary ---
Demographics + + + | Address | [address] | | | [place] [address] | + + + | Home Phone | | + + + | Preferred Language | Unknown | + + + | Marital Status | | + + + | Jainism Affiliation | CAT | + + + [...] + | Roxana Bo | ECON | [address] | | | | | [place] | | | | | [address] | | + + + + + Care Team Providers + +------+ + | Care Decorative Engraver Apprentice Name | Role | Phone | [...] | 2011 | Encounter | Center at [facility] [address] | [address] | re-fill | | | | [address] | [facility] [place] | | | | | for Health and | [address] | | | | | [facility], [address] | [phone] | | | | | [place], [place] | | | | | | [address] | | | | | | [phone] | | | +--------+ + + + [...] [place] | | | | | | [address] | | | | | | [phone] | | | | | | | | +--------+---------+ + + + documented as of this encounter Visit Diagnoses Not on filedocumented in this encounter"
--- OUTSIDE RECORDS SUMMARY | ~2019-12-22 | XMS | Encounter Summary ---
Demographics + + + | Address | [address] | | | [place] [address] | + + + | Home Phone [...] + | Roxana Bo | ECON | [address] | | | | | [place] | | | | | [address] | | + + + + + Care Team Providers + +------+ + | Care Rn Admissions Name | Role | Phone | + [...] Blood Test Results | | 2016 | | Center at [facility] [address] | [address] | | | | | [address] | [place], [place] | | | | | [facility] and | [address] | | | | | [facility], [facility] 2 | [phone] | | | | | [place], [place] | | | | | | [address] | | | | | | [phone] | | | +--------+ + + + [...] [place] | | | | | | [place] | | | | | | [address] | | | | | | [phone] | | | | | | | | +--------+---------+ + + + documented as of this encounter Visit Diagnoses Not on filedocumented in this encounter"
--- OUTSIDE RECORDS SUMMARY | ~2019-12-22 | XMS | Encounter Summary ---
Demographics + + + | Address | [address] | | | [place] [address] | + + + | Home Phone | | + + + | Preferred Language | Unknown | + + + | Marital Status | | + + + | Uatsdin Affiliation | CAT | + + + | Race | White | + + + | Ethnic Group | Not or | + + + Author + + + | Author | [facility] | + + + | Organization | [facility] | + + + | Address | Unknown | + + + | Phone | Unavailable | + + + Support + + + + + | Name | Relationship | Address | Phone | + + + + + | Roxana Bo | ECON | [address] | | | | | [place] | | | | | [address] | | + + + + + Care Team Providers + +------+ + | Care Pulp Grinder And Blender Name | Role | Phone | + +------+ + | Ventura Carrasquillo MD | PCP | | + +------+ + Encounter Details +--------+ + + + + | Date | Type | Department | Care Team | Description | +--------+ + + + + | 07/06/ | Telephone | Digestive Health | Lake Dennis MD | | | 2011 | | [place] [address] [address] | [address] | | | | | [address] | [place], [place] | | | | | for Health and | [address] | | | | | [facility], [facility] 2 | [phone] | | | | | [place], [place] | | | | | | [address] | | | | | | [phone] | | | +--------+ + + + [...] [place] | | | | | | [place] | | | | | | [address] | | | | | | [phone] | | | | | | | | +--------+---------+ + + + documented as of this encounter Visit Diagnoses Not on filedocumented in this encounter"
--- OUTSIDE RECORDS SUMMARY | ~2019-12-22 | XMS | Encounter Summary ---
Demographics + + + | Address | [address] | | | [place] [address] | + + + | Home Phone | | + + + | Preferred Language | Unknown | + + + | Marital Status | | + + + | Sikh Affiliation | CAT | + + + [...] + | Roxana Bo | ECON | [address] | | | | | [place] | | | | | [address] | | + + + + + Care Team Providers + +------+ + | Care Flat Surfacer Jewel Name | Role | Phone | + [...] | 2011 | Encounter | Center at [facility] [address] | [address] | re-fill | | | | [address] | [facility] [place] | | | | | for Health and | [address] | | | | | [facility], [address] | [phone] | | | | | [place], [place] | | | | | | [address] | | | | | | [phone] | | | +--------+ + + + [...] [place] | | | | | | [address] | | | | | | [phone] | | | | | | | | +--------+---------+ + + + documented as of this encounter Visit Diagnoses Not on filedocumented in this encounter"
--- OUTSIDE RECORDS SUMMARY | ~2019-12-22 | XMS | Encounter Summary ---
Demographics + + + | Address | [address] | | | [place] [address] | + + + | Home Phone [...] + | Roxana Bo | ECON | [address] | | | | | [place] | | | | | [address] | | + + + + + Care Team Providers + +------+ + | Care Wildlife Manager Name | Role | Phone | + +------+ + | Ventura Carrasquillo MD | PCP | | + +------+ + Reason for Visit + + + | Reason | Comments | + + + | Blood Test Results | 04/03/2011 | + + + Encounter Details +--------+ + + + + | Date | Type | Department | Care Team | Description | +--------+ + + + + | 04/10/ | Documentati | Digestive Health | Lake Dennis MD | Blood Test Results | | 2010 | on | Center at [facility] [address] | [address] | (04/03/2011) | | | | [address] | [place], [place] | | | | | for Health and | [address] | | | | | [facility], [facility] 2 | [phone] | | | | | [place], [place] | | | | | | [address] | | | | | | [phone] | | | +--------+ + + + [...] Rogers | | | | | | [place], [place] | | | | | | [address] | | | | | | [phone] | | | | | | | | +--------+---------+ + + + documented as of this encounter Procedures + +--------+ + + + | Procedure Name | Priori | Date/Time | Associated Diagnosis | Comments | | | ty | | | | + +--------+ + + + | INR | Routin | 04/03/2011 | | Results for this | | | e | | | procedure are in the | | | | | | results section. | + +--------+ + + + | CBC, WITH | Routin | 04/03/2011 | | Results for this | | DIFFERENTIAL | e | | | procedure are in the | | | | | | results section. | + +--------+ + + + | COMPLETE METABOLIC | Routin | 04/03/2011 | | Results for this | | [...] COMPLETE METABOLIC SET (NA,K,CL,CO2,BUN,CREAT,GLUC,CA,AST,ALT,BILI TOTAL,ALK PHOS,ALB,PROT TOTAL) (04/03/2011) + +---------+ + + + | Component | Value | Ref Range | Performed | Pathologist | | | | | At | Signature | + +---------+ + + + | GLUCOSE, | 96 | mg/dL | [facility] | | | PLASMA | | | LAB - | | | (LAB) | | | [place] | | + +---------+ + + + | BUN, PLASMA | 12 | mg/dL | [facility] | | | (LAB) | | | LAB - | | | | | | [place] | | + +---------+ + + + | CREATININE | 0.75 | mg/dL | [facility] | | | [...] + + + | ALK PHOS | 95 | U/L | [facility] | | | | | | LAB - | | | | | | [place] | | + +---------+ + + + | AST(SGOT) | 16 | U/L | [facility] | | | | | | LAB - | | | | | | [place] | | + +---------+ + + + | SODIUM, | 146 (H) | mmol/L | [facility] | | | [...] + + + | ALT (SGPT) | 8 | U/L | [facility] | | | [...] | [address] | [place], [place] | | | [place] | [address] | [address] | | + + + + + CBC, WITH DIFFERENTIAL (04/03/2011) + +-------+ + + + | Component | Value | Ref Range | Performed | Pathologist | | | | | At | Signature | + +-------+ + + + | WHITE CELL | 5.4 | K/cu mm | [facility] | | | COUNT | | | LAB - | | | | | | [place] | | + +-------+ + + + | HEMOGLOBIN | 14.2 | g/dL | [facility] | | | | | | LAB - | | | | | | [place] | | + +-------+ + + + | HEMATOCRIT | 44.5 | % | [facility] | | | | | | LAB - | | | | | | [place] | | + +-------+ + + + | PLATELET | 426 | K/cu mm | [facility] | | [address] | [place], [place] | | | [place] | [address] | [address] | | + + + + + INR (04/03/2011) + +-------+ + + + | Component [...] | | | [place] | [address] | [address] | | + + + + + documented in this encounter Visit Diagnoses Not on filedocumented in this encounter"
--- OUTSIDE RECORDS SUMMARY | ~2019-12-22 | XMS | Encounter Summary ---
Demographics + + + | Address | [address] | | | [place] [address] | + + + | Home Phone [...] + | Roxana Bo | ECON | [address] | | | | | [place] | | | | | [address] | | + + + + + Care Team Providers + +------+ + | Care Scroll Machine Operator Name | Role | Phone | + +------+ + | Ventura Carrasquillo MD | PCP | | + +------+ + Reason for Visit + + + | Reason | Comments | + + + | Lab Order | liver set and CBC | + + + Encounter Details +--------+ + + + + | Date | Type | Department | Care Team | Description | +--------+ + + + + | 02/10/ | Block Feeder | Digestive Health | Lake Dennis MD | Autoimmune hepatitis | | 2016 | | Center at [facility] [address] | [address] | (HCC) (Primary Dx) | | | | [address] | [place], [place] | | | | | for Health and | [address] | | | | | [facility], [facility] 2 | [phone] | | | | | [place], [place] | | | | | | [address] | | | | | | [phone] | | | +--------+ + + + [...] [place] | | | | | | [place], [place] | | | | | | [address] | | | | | | [phone] | | | | | | | | +--------+---------+ + + + documented as of this encounter Visit Diagnoses + + | Diagnosis | + + | Autoimmune hepatitis (HCC) - Primary Autoimmune hepatitis | + + documented in this encounter"
--- OUTSIDE RECORDS SUMMARY | ~2019-12-22 | XMS | Encounter Summary ---
Demographics + + + | Address | [address] | | | [place] [address] | + + + | Home Phone [...] + | Roxana Bo | ECON | [address] | | | | | [place] | | | | | [address] | | + + + + + Care Team Providers + +------+ + | Care Referral Nurse Name | Role | Phone | + +------+ + | Ventura Carrasquillo MD | PCP | | + +------+ + Encounter Details +--------+ + + + + | Date | Type | Department | Care Team | Description | +--------+ + + + + | 06/30/ | MyChart | Digestive Health | Lake Dennis MD | RE: Medication | | 2019 | Encounter | Center at [facility] [address] | [address] | | | | | [address] | [place], [place] | | | | | for Health and | [address] | | | | | Healing, Building [address] | [phone] | | | | | [place], [place] | | | | | | [address] | | | | | | [phone] | | | +--------+ + + + [...] [place] | | | | | | [place] | | | | | | [address] | | | | | | [phone] | | | | | | | | +--------+---------+ + + + documented as of this encounter Visit Diagnoses Not on filedocumented in this encounter"
--- OUTSIDE RECORDS SUMMARY | ~2019-12-22 | XMS | Encounter Summary ---
Demographics + + + | Address | [address] | | | [place] [address] | + + + | Home Phone | | + + + | Preferred Language | Unknown | + + + | Marital Status | | + + + | Presybeterian Affiliation | CAT | + + + [...] + | Roxana Bo | ECON | [address] | | | | | [place] | | | | | [address] | | + + + + + Care Team Providers + +------+ + | Care Monitoring Engineer Name | Role | Phone | + +------+ + | Ventura Carrasquillo MD | PCP | | + +------+ + Reason for Visit + + + | Reason | Comments | + + + | Lab findings, | | | teaching, guidance, | | | and counseling | | + + + Encounter Details +--------+ + + + + | Date | Type | Department | Care Team | Description | +--------+ + + + + | 04/07/ | MyChart | Digestive Health | Lake Dennis MD | RE: Test Results | | 2011 | Encounter | Center at [facility] [address] | [address] | | | | | [address] | [place], [place] | | | | | for Health and | [address] | | | | | [facility], [facility] 2 | [phone] | | | | | [place], [place] | | | | | | [address] | | | | | | [phone] | | | +--------+ + + + [...] | | | | | | [place], [place] | | | | | | [address] | | | | | | [phone] | | | | | | | | +--------+---------+ + + + documented as of this encounter Visit Diagnoses Not on filedocumented in this encounter"
--- OUTSIDE RECORDS SUMMARY | ~2019-12-22 | XMS | Encounter Summary ---
Demographics + + + | Address | [address] | | | [place] [address] | + + + | Home Phone [...] + | Roxana Bo | ECON | [address] | | | | | [place] | | | | | [address] | | + + + + + Care Team Providers + +------+ + | Care Hiv Prevention Specialist Name | Role | Phone | + [...] | +--------+ + + + + | 05/25/ | Abstract | Digestive Health | Lake Dennis MD | Blood Test Results | | 2018 | | Center at [facility] [address] | [address] | | | | | [address] | [place], [place] | | | | | for Health and | [address] | | | | | [facility] 2 | [phone] | | | | | [place], [place] | | | | | | [address] | | | | | | [phone] | | | +--------+ + + + [...] [place] | | | | | | [place], [place] | | | | | | [address] | | | | | | [phone] | | | | | | | | +--------+---------+ + + + documented as of this encounter Visit Diagnoses Not on filedocumented in this encounter"
--- OUTSIDE RECORDS SUMMARY | ~2019-12-22 | XMS | Encounter Summary ---
Demographics + + + | Address | [address] | | | [place] [address] | + + + | Home Phone [...] + | Roxana Bo | ECON | [address] | | | | | [place] | | | | | [address] | | + + + + + Care Team Providers + +------+ + | Care Heavy Lift Rigger Name | Role | Phone | + [...] | +--------+ + + + + | 05/27/ | Documentati | Digestive Health | Lake Dennis MD | Blood Test Results | | 2018 | on | Center at [facility] [address] | [address] | | | | | [address] | [place], [place] | | | | | for Health and | [address] | | | | | [facility] 2 | [phone] | | | | | [place], [place] | | | | | | [address] | | | | | | [phone] | | | +--------+ + + + [...] [place] | | | | | | [place], [place] | | | | | | [address] | | | | | | [phone] | | | | | | | | +--------+---------+ + + + documented as of this encounter Procedures + +--------+ + + + | Procedure Name | Priori | Date/Time | Associated Diagnosis | Comments | | | ty | | | | + +--------+ + + + | LIVER SET | Routin | 05/21/2017 | | Results for this | | (AST,ALT,BILI | e | | | procedure are in the | | TOTAL,BILI | | | | results section. | | DIRECT,ALK | | | | | | PHOS,ALB,PROT TOTAL) | | | | | + +--------+ + + + | CBC ONLY | Routin | 05/21/2017 | | Results for this | | | e | | | procedure are in the | | | | | | results section. | + +--------+ + + + documented in this encounter Results LIVER SET (AST,ALT,BILI TOTAL,BILI DIRECT,ALK PHOS,ALB,PROT TOTAL) (05/21/2017) + +---------+ + + + | Component | Value | Ref Range | Performed | Pathologist | | | | | At | Signature | + +---------+ + + + | ALK PHOS | 175 (H) | U/L | [facility] | | | | | | LAB - | | | | | | [place] | | + +---------+ + + + | TOTAL | 6.8 | g/dL | [facility] | | | [...] +---------+ + + + | ALBUMIN, | 3.5 | g/dL | [facility] | | | PLASMA | | | LAB - | | | (LAB) | | | [place] | | + +---------+ + + + | AST(SGOT) | 25 | U/L | [facility] | | | | | | LAB - | | | | | | [place] | | + +---------+ + + + | ALT (SGPT) | 14 | U/L | [facility] | | | | | | LAB - | | | | | | [place] | | + +---------+ + + + | GAMMA | 80 (H) | | [facility] | | | GLUTAMYL | | | LAB - | | | TRANSFERASE | | | [place] | | + +---------+ + + + | BILIRUBIN, | 0.4 | mg/dL | [facility] | | | TOTAL | | | LAB - | | [...] [address] | [place], [place] | [phone] | | [place] | | | | + + + + + CBC ONLY (05/21/2017) + +-------+ + + + | Component | Value | Ref Range | Performed | Pathologist | | | | | At | Signature | + +-------+ + + + | WHITE CELL | 6.1 | K/cu mm | [facility] | | | COUNT | | | LAB - | | | | | | [place] | | + +-------+ + + + | RED CELL | 4.75 | M/cu mm | [facility] | | [...] +-------+ + + + | PLATELET | 332 | K/cu mm | [facility] | | [...] + + | [facility] - | [address] | [place] | [phone] | | [place] | | | | + + + + + documented in this encounter Visit Diagnoses Not on filedocumented in this encounter"
--- OUTSIDE RECORDS SUMMARY | ~2019-12-22 | XMS | Encounter Summary ---
Demographics + + + | Address | [address] | | | [place] [address] | + + + | Home Phone [...] + | Roxana Bo | ECON | [address] | | | | | [place] | | | | | [address] | | + + + + + Care Team Providers + +------+ + | Care Professor Of Biochemistry Name | Role | Phone | + +------+ + | Ventura Carrasquillo MD | PCP | | + +------+ + Encounter Details +--------+ + + + + | Date | Type | Department | Care Team | Description | +--------+ + + + + | 10/01/ | Document-Sc | UNKNOWN DEPARTMENT | Unknown . | | | 2012 | anned | [address] | | | | | | [address] | | | | | | [place], [place] | | | | | | [address] | | | +--------+ + + + [...] [place] | | | | | | [place], [place] | | | | | | [address] | | | | | | [phone] | | | | | | | | +--------+---------+ + + + documented as of this encounter Procedures + +--------+ + + + | Procedure Name | Priori | Date/Time | Associated Diagnosis | Comments | | | ty | | | | + +--------+ + + + | LAB REPORTS | | 12/15/2012 | | Results for this | | | | 12:00 AM | | procedure are in the | | | | PDT | | results section. | + +--------+ + + + | LAB REPORTS | | 10/01/2012 | | Results for this | | | | 12:00 AM | | procedure are in the | | | | PDT | | results section. | + +--------+ + + + documented in this encounter Results LAB REPORTS (12/15/2012 12:00 AM PDT) + + + | Narrative | Performed At | + + + | | | | | | + + + + + | Procedure Note | + + | Maurice Faculty - 12/29/2012 2:04 PM PDT | + + LAB REPORTS (10/01/2012 12:00 AM PDT) + + + | Narrative | Performed At | + + + | | | | | | + + + + + | Procedure Note | + + | Rg Richards - 10/21/2012 7:58 AM PDT | + + documented in this encounter Visit Diagnoses Not on filedocumented in this encounter"
--- OUTSIDE RECORDS SUMMARY | ~2019-12-22 | XMS | Encounter Summary ---
Demographics + + + | Address | [address] | | | [place] [address] | + + + | Home Phone [...] + + + | Author | [facility] | + + + | Organization | [facility] | + + + | Address | Unknown | + + + | Phone | Unavailable | + + + Support + + + + + | Name | Relationship | Address | Phone | + + + + + | Roxana Bo | ECON | [address] | | | | | [place] | | | | | [address] | | + + + + + Care Team Providers + +------+ + | Care Hand Engraver Name | Role | Phone | + +------+ + | Ventura Carrasquillo MD | PCP | | + +------+ + Reason for Visit + + + | Reason | Comments | + + + | Blood Test Results | Outside labs from [facility] 10/02/14. | + + + Encounter Details +--------+ + + + + | Date | Type | Department | Care Team | Description | +--------+ + + + + | 10/20/ | Documentati | Digestive Health | Lake Dennis MD | Blood Test Results | | 2015 | on | Center at [facility] [address] | [address] | (Outside labs from | | | | [address] | [place], [place] | [facility] 10/02/14.) | | | | for Health and | [address] | | | | | [place] [address] | [phone] | | | | | [place], [place] | | | | | | [address] | | | | | | [phone] | | | +--------+ + + + [...] [place] | | | | | | [place], [place] | | | | | | [address] | | | | | | [phone] | | | | | | | | +--------+---------+ + + + documented as of this encounter Procedures + +--------+ + + + | Procedure Name | Priori | Date/Time | Associated Diagnosis | Comments | | | ty | | | | + +--------+ + + + | CBC, WITH | Routin | 10/02/2014 | | Results for this | | DIFFERENTIAL | e | 8:45 AM | | procedure are in the | | | | PDT | | results section. | + +--------+ + + + | LIVER SET | Routin | 10/02/2014 | | Results for this | | (AST,ALT,BILI | e | 8:45 AM | | procedure are in the | | TOTAL,BILI | | PDT | | results section. | | DIRECT,ALK | | | | | | PHOS,ALB,PROT TOTAL) | | | | | + +--------+ + + + documented in this encounter Results LIVER SET (AST,ALT,BILI TOTAL,BILI DIRECT,ALK PHOS,ALB,PROT TOTAL) (10/02/2014 8:45 AM PDT ) + +---------+ + + + | Component | Value | Ref Range | Performed | Pathologist | | | | | At | Signature | + +---------+ + + + | BILIRUBIN | 0.5 | Transcutaneous | [facility] | | | TOTAL | | Bilirubinometer | [facility] - [place] | | | | | | [place] | | + +---------+ + + + | ALK PHOS | 137 (H) | U/L | [facility] | | | | | | [facility] - [place] | | | | | | [place] | | + +---------+ + + + | BILIRUBIN | 0.1 | mg/dL | [facility] | | | DIRECT | | | [facility] - [place] | | | | | | [place] | | + +---------+ + + + | ALBUMIN, | 3.6 | g/dL | [facility] | | | PLASMA | | | [facility] - [place] | | | (LAB) | | | [place] | | + +---------+ + + + | AST(SGOT) | 21 | U/L | [facility] | | | | | | [facility] - [place] | | | | | | [place] | | + +---------+ + + + | ALT (SGPT) | 12 | U/L | [facility] | | | | | | [facility] - [place] | | | | | | [place] | | + +---------+ + + + + + | Specimen | + + | Blood - Blood | + + + +---------+ + + | Performing | Address | City/State/Zipcode | Phone Number | | Organization | | | | + +---------+ + + | [facility] | | | | | [place] | | | | + +---------+ + + | [facility] | | [place], [place] | | | [place] | | [address] | | + +---------+ + + CBC, WITH DIFFERENTIAL (10/02/2014 8:45 AM PDT) + +-------+ + + + | Component | Value | Ref Range | Performed | Pathologist | | | | | At | Signature | + +-------+ + + + | WHITE CELL | 5.3 | K/cu mm | [facility] | | | COUNT | | | [facility] - [place] | | | | | | [place] | | + +-------+ + + + | HEMOGLOBIN | 14.7 | g/dL | [facility] | | | | | | [facility] - [place] | | | | | | [place] | | + +-------+ + + + | HEMATOCRIT | 43.6 | % | [facility] | | | | | | [facility] - [place] | | | | | | [place] | | + +-------+ + + + | PLATELET | 352 | K/cu mm | [facility] | | | COUNT | | | [facility] - [place] | | | | | | [place] | | + +-------+ + + + + + | Specimen | + + | Blood - Blood | + + + +---------+ + + | Performing | Address | City/State/Zipcode | Phone Number | | Organization | | | | + +---------+ + + | [facility] | | | | | [place] | | | | + +---------+ + + | [facility] | | [place], [place] | | | [place] | | [address] | | + +---------+ + + documented in this encounter Visit Diagnoses Not on filedocumented in this encounter"
--- OUTSIDE RECORDS SUMMARY | ~2019-12-22 | XMS | Encounter Summary ---
Demographics + + + | Address | [address] | | | [place] [address] | + + + | Home Phone [...] + | Roxana Bo | ECON | [address] | | | | | [place] | | | | | [address] | | + + + + + Care Team Providers + +------+ + | Care Fountain Helper Name | Role | Phone | [...] | | [address] | [facility] [place] | | | | | for Health and | [address] | | | | | [facility], [facility] 2 | [phone] | | | | | [place], [place] | | | | | | [address] | | | | | | [phone] | | | +--------+ + + + [...] [place] | | | | | | [place], [place] | | | | | | [address] | | | | | | [phone] | | | | | | | | +--------+---------+ + + + documented as of this encounter Visit Diagnoses Not on filedocumented in this encounter"
--- OUTSIDE RECORDS SUMMARY | ~2019-12-22 | XMS | Encounter Summary ---
Demographics + + + | Address | [address] | | | [place] [address] | + + + | Home Phone | | + + + | Preferred Language | Unknown | + + + | Marital Status | | + + + | Worship Affiliation | CAT | + + + [...] + | Roxana Bo | ECON | [address] | | | | | [place] | | | | | [address] | | + + + + + Care Team Providers + +------+ + | Care County Coroner Name | Role | Phone | + +------+ + | Ventura Carrasquillo MD | PCP | | + +------+ + Encounter Details +--------+ + + + + | Date | Type | Department | Care Team | Description | +--------+ + + + + | 10/04/ | MyChart | Digestive Health | Lake Dennis MD | RE: Lab Results | | 2014 | Encounter | Center at [facility] [address] | [address] | | | | | [address] | [place], [place] | | | | | for Health and | [address] | | | | | Healing, Building [address] | [phone] | | | | | [place], [place] | | | | | | [address] | | | | | | [phone] | | | +--------+ + + + [...] Rogers | | | | | | [place] | | | | | | [address] | | | | | | [phone] | | | | | | | | +--------+---------+ + + + documented as of this encounter Visit Diagnoses Not on filedocumented in this encounter"
--- OUTSIDE RECORDS SUMMARY | ~2019-12-22 | XMS | Encounter Summary ---
Demographics + + + | Address | [address] | | | [place] [address] | + + + | Home Phone [...] + | Roxana Bo | ECON | [address] | | | | | [place] | | | | | [address] | | + + + + + Care Team Providers + +------+ + | Care Frame Table Operator Helper Name | Role | Phone | [...] Lab findings, | | 2008 | | Center at [facility] [address] | [address] | teaching, guidance, | | | | [address] [place] [address] | [place], [place] | and counseling | | | | for Health and | [address] | (add'l questions ) | | | | [facility] [place] [facility], [facility] 2 | [phone] | | | | | [place], [place] | | | | | | [address] | | | | | | [phone] | | | +--------+ + + + [...] [place] | | | | | | [facility] [place] | | | | | | [address] | | | | | | [phone] | | | | | | | | +--------+---------+ + + + documented as of this encounter Visit Diagnoses Not on filedocumented in this encounter"
--- OUTSIDE RECORDS SUMMARY | ~2019-12-22 | XMS | Encounter Summary ---
Demographics + + + | Address | [address] | | | [place] [address] | + + + | Home Phone [...] + | Roxana Bo | ECON | [address] | | | | | [place] | | | | | [address] | | + + + + + Care Team Providers + +------+ + | Care Nurse Sexual Assault Name | Role | Phone | + +------+ + | Ventura Carrasquillo MD | PCP | | + +------+ + Reason for Visit AUTH/CERT +--------+--------+ + + + + | Status | Reason | Specialty | Diagnoses / | Referred By | Referred To | | | | | Procedures | Contact | Contact | +--------+--------+ + + + + | Closed | | | | | [facility] | | | | | | | Proceduralcar | | | | | | | [address] | | | | | | | [facility] | | | | | | | [facility] | | | | | | | [facility] | | | | | | | [facility] | | | | | | | [place], [place] | | | | | | | [address] | | | | | | | Phone: | | | | | | | [phone] | | | | | | | Fax: | | | | | | | [phone] | +--------+--------+ + + + + Encounter Details +--------+ + + + + | Date | Type | Department | Care Team | Description | +--------+ + + + + | 02/20/ | Hospital | [facility] [address] | Lake Dennis MD | | | 2008 | Encounter | [address] | [address] | | | | | [facility] [facility] | [place], [place] | | | | | [place], [place] | [address] | | | | | [address] | [phone] | | | | | [phone] | | | | | | | Carolyn Joe MD | | +--------+ + + + + [...] + + + | Blood Pressure | 134/82 | 02/20/2009 8:30 PM | | | | | PDT | | + + + + + | Pulse | 66 | 02/20/2009 8:30 PM | | | | | PDT | | + + + + + | Temperature | 36.5 C (97.7 F) | 02/20/2009 4:45 PM | | | | | PDT | | + + + + + | Respiratory Rate | 19 | 02/20/2009 7:30 PM | | | | | PDT | | + + + + + | Oxygen Saturation | 97% | 02/20/2009 6:30 PM | | | | | PDT | | + + + + + | Inhaled Oxygen | - | - | | | Concentration | | | | + + + + + | Weight | 81.6 kg (180 lb) | 02/20/2009 1:00 PM | | | | | PDT | | + + + + + | Height | 158.8 cm (5' 2.5") | 02/20/2009 1:00 PM | | | | | PDT | | + + + + + | Body Mass Index | 32.4 | 02/20/2009 1:00 PM | | | | | PDT | | + + + + + documented in this encounter Discharge Summaries Other, Faculty - 02/20/2009 8:49 PM PDT documented in this encounter Discharge Instructions Instructions Latha Mendoza - 02/20/2009Pt given written discharge instructions, acknowledg ed understanding, discharged in stable condition with . documented in this encounter Plan of Treatment +--------+---------+ + + + | Date | Type | Specialty | Care Team | Description | +--------+---------+ + + + | 01/26/ | Office | Hepatology | Lake Dennis MD | | | 2020 | Visit | | [address] | | | | | | [place], [place] | | | | | | [address] | | | | | | [phone] | | | | | | | | +--------+---------+ + + + +------+------+--------+ + + | Name | Type | Priori | Associated Diagnoses | Order Schedule | | | | ty | | | +------+------+--------+ + + | INR | Lab | Routin | | Pre-Procedure for 1 | | | | e | | Occurrences starting | | | | | | 02/20/2009 | +------+------+--------+ + + documented as of this encounter Procedures + +--------+ + + + | Procedure Name | Priori | Date/Time | Associated Diagnosis | Comments | | | ty | | | | + +--------+ + + + | LAB REPORTS | | 04/19/2009 | | Results for this | | | | 12:00 AM | | procedure are in the | | | | PST | | results section. | + +--------+ + + + | LAB REPORTS | | 03/06/2009 | | Results for this | | | | 12:00 AM | | procedure are in the | | | | PST | | results section. | + +--------+ + + + | ANESTHESIA/SEDATION | | 02/20/2009 | | Results for this | | | | 8:49 PM | | procedure are in the | | | | PDT | | results section. | + +--------+ + + + | INR | Urgent | 02/20/2009 | | Results for this | | | | 1:48 PM | | procedure are in the | | | | PDT | | results section. | + +--------+ + + + | CBC ONLY | Urgent | 02/20/2009 | | Results for this | | | | 1:48 PM | | procedure are in the | | | | PDT | | results section. | + +--------+ + + + | SURGICAL PATHOLOGY | Routin | 02/20/2009 | | Results for this | | | e | | | procedure are in the | | | | | | results section. | + +--------+ + + + documented in this encounter Results LAB REPORTS (04/19/2009 12:00 AM PST) + + + | Narrative | Performed At | + + + | | | + + + + + | Procedure Note | + + | Maurice, Faculty - 04/19/2009 12:00 AM PST | | | + + LAB REPORTS (03/06/2009 12:00 AM PST) + + + | Narrative | Performed At | + + + | | | + + + + + | Procedure Note | + + | Rg Richards - 03/06/2009 12:00 AM PST | | | + + ANESTHESIA/SEDATION (02/20/2009 8:49 PM PDT) + + + | Narrative | Performed At | + + + | | | + + + + + | Procedure Note | + + | Rg Richards - 02/20/2009 8:49 PM PDT | | | + + INR (02/20/2009 1:48 PM PDT) + + + + + + | Component | Value | Ref Range | Performed | Pathologist | | | | | At | Signature | + + + + + + | INR | Not Recd | 0.90 - 1.20 INR | [facility] | | | | | [...] DEPARTMENT OF | [address] | [place] [address] | | | PATHOLOGY | [address] | | | + + + + + CBC ONLY (02/20/2009 1:48 PM PDT) + + + + + + | Component | Value | Ref Range | Performed | Pathologist | | | | | At | Signature | + + + + + + | WHITE CELL | Not Recd | 4.4 - 11.0 K/cu | [facility] | | | COUNT | | mm | DEPARTMENT | | | | | | OF | | | | | | PATHOLOGY | | + + + + + + | RED CELL | Not Recd | 4.00 - 5.20 | [facility] | | | COUNT | | M/cu mm | DEPARTMENT | | | | | | OF | | | | | | PATHOLOGY | | + + + + + + | HEMOGLOBIN | Not Recd | 12.0 - 16.0 | [facility] | | | | | g/dL | DEPARTMENT | | | | | | OF | | | | | | PATHOLOGY | | + + + + + + | HEMATOCRIT | Not Recd | 36.0 - 46.0 % | [facility] | | | | | | DEPARTMENT | | | | | | OF | | | | | | PATHOLOGY | | + + + + + + | MCV | Not Recd | 80.0 - 96.0 fL | [facility] | | | | | | DEPARTMENT | | | | | | OF | | | | | | PATHOLOGY | | + + + + + + | MCHC | Not Recd | 33.4 - 35.5 | [facility] | | | | | g/dL | DEPARTMENT | | | | | | OF | | | | | | PATHOLOGY | | + + + + + + | RDW | Not Recd | 11.5 - 15.0 % | [facility] | | | | | | DEPARTMENT | | | | | | OF | | | | | | PATHOLOGY | | + + + + + + | PLATELET | Not Recd | 150 - 400 K/cu | [facility] | | | COUNT | | mm | DEPARTMENT | | [...] | + + + + + | [facility] DEPARTMENT OF | [address] | [place] [address] | | | PATHOLOGY | [address] | | | + + + + + SURGICAL PATHOLOGY (02/20/2009) + + + + + + | Component | Value | Ref Range | Performed | Pathologist | | | | | At | Signature | + + + + + + | SURGICAL | SOURCE OF SPECIMEN:A | | [facility] | | | PATHOLOGY | Liver [place] Biopsy | | DEPARTMENT | | | | Final Pathologic | | OF | | | | Diagnosis:Liver, [place], | | PATHOLOGY | | | | biopsy:- Chronic active | | | | | | hepatitis (see comment) | | | | | | Comment: | | | | | | Sections reveal liver | | | | | | parenchyma with dense | | | | | | portal and | | | | | | lobularchronic | | | | | | inflammatory infiltrate | | | | | | with many plasma cells. | | | | | | Minimal macro | | | | | | andmicrosteatosis is | | | | | | observed, involving less | | | | | | than 5% of hepatocytes. | | | | | | Thereis no | | | | | | significant neutrophilic | | | | | | infiltrate or | | | | | | hepatocyte ballooning | | | | | | and noMallory's hyaline | | | | | | is noted. There are no | | | | | | granulomas and no | | | | | | significantbile duct | | | | | | damage, periductal | | | | | | fibrosis, or | | | | | | cholestasis. Trichrome | | | | | | andreticulin stains | | | | | | confirm fibrosis in | | | | | | portal areas only. PAS/D | | | | | | and ironstains reveal | | | | | | no additional pathologic | | | | | | abnormalities. Though | | | | | | findings arenot | | | | | | entirely specific, | | | | | | morphologic appearance | | | | | | favors autoimmune | | | | | | hepatitis.Case reviewed | | | | | | in consensus conference | | | | | | with agreement. | | | | | | Case seen by:Evi | | | | | | Go/Student FellowJody E. | | | | | | Mckenna, | | | | | | M.D./PathologistT:02/21/ | | | | | | Clinical | | | | | | History:The patient is a | | | | | | 58-year-old female. | | | | | | Per Epic: Patient | | | | | | has elevated | | | | | | liverfunction tests and | | | | | | possible autoimmune | | | | | | hepatitis with an LYDIA of | | | | | | 1:320. Shetested | | | | | | negative for viral | | | | | | hepatitis serologies, | | | | | | and imaging | | | | | | suggestpossible fatty | | | | | | infiltration. | | | | | | Gross | | | | | | Description:Received is | | | | | | one specimen in formalin | | | | | | in a container labeled | | | | | | with thepatient's name | | | | | | (initials CI) and date | | | | | | of 52. | | | | | | Received informalin is | | | | | | a single, thread-like | | | | | | fragment of soft tissue | | | | | | measuring 0.1 cmin | | | | | | diameter and 2.5 cm in | | | | | | length. The entire | | | | | | specimen is submitted. | | | | | | Cassette Index:A1, | | | | | | wrappedSG/terrence My | | | | | | electronic signature | | | | | | indicates that I have | | | | | | personally reviewed | | | | | | alldiagnostic slides, | | | | | | the gross and/or | | | | | | microscopic portion of | | | | | | thisreport and | | | | | | formulated the final | | | | | | diagnosis. | | | | | | Rendering Diagnostician: | | | | | | Sharla Mckenna | | | | | | Michelle | | | | | | gigi Kathleen 02/23/2009 | | | | + + + + + + + + | Specimen | + + | Other | + + + + + + + | Performing | Address | City/State/Zipcode | Phone Number | | Organization | | | | + + + + + | [facility] | [address] | [place] [address] | | | PATHOLOGY | [address] | | | + + + + + documented in this encounter Visit Diagnoses Not on filedocumented in this encounter
--- OUTSIDE RECORDS SUMMARY | ~2019-12-22 | XMS | Encounter Summary ---
Demographics + + + | Address | [address] | | | [place] [address] | + + + | Home Phone | | + + + | Preferred Language | Unknown | + + + | Marital Status | | + + + | Religion Affiliation | CAT | + + + | Race | White | + + + | Ethnic Group | Not or | + + + Author + + + | Author | [facility] | + + + | Organization | [facility] | + + + | Address | Unknown | + + + | Phone | Unavailable | + + + Support + + + + + | Name | Relationship | Address | Phone | + + + + + | Roxana Bo | ECON | [address] | | | | | [place] | | | | | [address] | | + + + + + Care Team Providers + +------+ + | Care Home Care Consultant Name | Role | Phone | [...] Density Scan | | 2009 | | Center at [facility] [address] | [address] | | | | | [address] | [place], [place] | | | | | for Health and | [address] | | | | | [place] [address] | [phone] | | | | | [place], [place] | | | | | | [address] | | | | | | [phone] | | | +--------+ + + + [...] [address] | | | | | | [place], [place] | | | | | | [address] | | | | | | [phone] | | | | | | | | +--------+---------+ + + + documented as of this encounter Visit Diagnoses Not on filedocumented in this encounter"
--- OUTSIDE RECORDS SUMMARY | ~2019-12-22 | XMS | Encounter Summary ---
Demographics + + + | Address | [address] | | | [place] [address] | + + + | Home Phone [...] + | Roxana Bo | ECON | [address] | | | | | [place] | | | | | [address] | | + + + + + Care Team Providers + +------+ + | Care Elevator Erector Name | Role | Phone | + +------+ + | Ventura Carrasquillo MD | PCP | | + +------+ + Reason for Visit + + + | Reason | Comments | + + + | Blood Test Results | [facility] 10/02/14 Lab Results (AST, alk, bilirubin, | | | protein, albumin, CBC) | + + + Encounter Details +--------+ + + + + | Date | Type | Department | Care Team | Description | +--------+ + + + + | 10/03/ | Abstract | Digestive Health | Lake Dennis MD | Blood Test Results | | 2014 | | [place] [address] [address] | [address] | ([facility] | | | | [address] | [place], [place] | 10/02/14 Lab Results | | | | for Health and | [address] | (AST, alk, | | | | Healing, Building [address] | [phone] | bilirubin, protein, | | | | [place], [place] | | albumin, CBC)) | | | | [address] | | | | | | [phone] | | | +--------+ + + + [...] [address] | | | | | | [place], [place] | | | | | | [address] | | | | | | [phone] | | | | | | | | +--------+---------+ + + + documented as of this encounter Visit Diagnoses Not on filedocumented in this encounter"
--- OUTSIDE RECORDS SUMMARY | ~2019-12-22 | XMS | Encounter Summary ---
Demographics + + + | Address | [address] | | | [place] [address] | + + + | Home Phone | | + + + | Preferred Language | Unknown | + + + | Marital Status | | + + + | Adventist Affiliation | CAT | + + + [...] + | Roxana Bo | ECON | [address] | | | | | [place] | | | | | [address] | | + + + + + Care Team Providers + +------+ + | Care Cap Machine Operator Name | Role | Phone [...] | | | 2011 | on | Center at [facility] [address] | [address] | | | | | [address] | [place], [place] | | | | | for Health and | [address] | | | | | [facility] 2 | [phone] | | | | | [place], [place] | | | | | | [address] | | | | | | [phone] | | | +--------+ + + + [...] [address] | | | | | | [place], [place] | | | | | | [address] | | | | | | [phone] | | | | | | | [...] | | | [place] | | + +---------+ + + + + + | Specimen | + + | Blood - Blood | + + + + + + + | Performing | Address | City/State/Zipcode | Phone Number | | Organization | | | | + + + + + | [facility] | [address] | [place], [place] | | | [place] | [address] | [address] | | + + + + + [...] | | | [place] | | + + + + + + + + | Specimen | + + | Blood - Blood | + + + + + + + | Performing | Address | City/State/Zipcode | Phone Number | | Organization | | | | + + + + + | [facility] | [address] | [place] | | | [place] | [address] | [address] | | + + + + + [...] Suite | [place], [place] | | | [place] | [address] | [address] | | + + + + + documented in this encounter Visit Diagnoses Not on filedocumented in this encounter"
--- OUTSIDE RECORDS SUMMARY | ~2019-12-22 | XMS | Encounter Summary ---
Demographics + + + | Address | [address] | | | [place] [address] | + + + | Home Phone [...] + | Roxana Bo | ECON | [address] | | | | | [place] | | | | | [address] | | + + + + + Care Team Providers + +------+ + | Care Men'S Basketball Coach Name | Role | Phone | + +------+ + | No Pcp Per Patient | PCP | Unavailable | + +------+ + Encounter Details +--------+ + + + + | Date | Type | Department | Care Team | Description | +--------+ + + + + | 01/15/ | MyChart | Digestive Health | Lake Dennis MD | Lab | | 2016 | Encounter | Center at [facility] [address] | [address] | | | | | [address] | [place], [place] | | | | | for Health and | [address] | | | | | Healing, Building [address] | [phone] | | | | | [facility] [place] | | | | | | [address] | | | | | | [phone] | | | +--------+ + + + [...] [place] | | | | | | [address] | | | | | | [phone] | | | | | | | | +--------+---------+ + + + documented as of this encounter Visit Diagnoses Not on filedocumented in this encounter"
--- OUTSIDE RECORDS SUMMARY | ~2019-12-22 | XMS | Encounter Summary ---
Demographics + + + | Address | [address] | | | [place] [address] | + + + | Home Phone [...] + | Roxana Bo | ECON | [address] | | | | | [place] | | | | | [address] | | + + + + + Care Team Providers + +------+ + | Care Blast Furnace Auxiliaries Supervisor Name | Role | Phone | [...] [address] | | | | | | [place], [place] | | | | | | [address] | | | | | | [phone] | | | | | | | | +--------+---------+ + + + documented as of this encounter Visit Diagnoses Not on filedocumented in this encounter"
--- OUTSIDE RECORDS SUMMARY | ~2019-12-22 | XMS | Encounter Summary ---
Demographics + + + | Address | [address] | | | [place] [address] | + + + | Home Phone | | + + + | Preferred Language | Unknown | + + + | Marital Status | | + + + | Taoism Affiliation | CAT | + + + | Race | White | + + + | Ethnic Group | Not or | + + + Author + + + | Author | [facility] | + + + | Organization | [facility] | + + + | Address | Unknown | + + + | Phone | Unavailable | + + + Support + + + + + | Name | Relationship | Address | Phone | + + + + + | Roxana Bo | ECON | [address] | | | | | [place] | | | | | [address] | | + + + + + Care Team Providers + +------+ + | Care Plant Anatomy Teacher Name | Role | Phone | [...] | 2018 | Encounter | Center at [facility] [address] | [address] | Refill | | | | [address] | [place], [place] | | | | | for Health and | [address] | | | | | Healing, Building [address] | [phone] | | | | | [place], [place] | | | | | | [address] | | | | | | [phone] | | | +--------+ + + + [...] [address] | | | | | | [place], [place] | | | | | | [address] | | | | | | [phone] | | | | | | | | +--------+---------+ + + + documented as of this encounter Visit Diagnoses Not on filedocumented in this encounter"
--- OUTSIDE RECORDS SUMMARY | ~2019-12-22 | XMS | Encounter Summary ---
Demographics + + + | Address | [address] | | | [place] [address] | + + + | Home Phone | | + + + | Preferred Language | Unknown | + + + | Marital Status | | + + + | Hinduism Affiliation | CAT | + + + [...] + | Roxana Bo | ECON | [address] | | | | | [place] | | | | | [address] | | + + + + + Care Team Providers + +------+ + | Care Brand Strategy Manager Name | Role | Phone | + +------+ + | Ventura Carraqsuillo MD | PCP | | + +------+ [...] | | | biliary | REFERRING | [place], [place] | | | | | cirrhosis | PROVIDER PER | [address] | | | | | Procedures | PT | Phone: | | | | | [place] | | [phone] | | | | | OFFICE/OUTPT | | Fax: | | | | | | | [phone] | | | | | VISIT,EST,LE | [...] | 2017 | Visit | Center at [facility] [address] | [address] | cirrhosis (HCC) | | | | [address] | [place], [place] | (Primary Dx); | | | | for Health and | [address] | Autoimmune hepatitis | | | | [facility] 2 | [phone] | ([facility]) | | | | [place], [place] | | | | | | [address] | | | | | | [phone] | | | +--------+---------+ + + + [...] + documented in this encounter Progress Notes Laek Dennis MD - 01/26/2017 1:00 PM PDTFormatting [...] unit oral tablet Take 1,000 Units by [facility] once daily. udlcghmfpuln-wljxjkn-vysn-lutein (CENTRUM SILVER ULTRA WOMEN'S) Oral Tablet Take 1 Tab by mouth once daily. [place]-3 Fatty Acids-Vitamin E (FISH OIL) 1,000 mg [...] 1) cont current meds 2) CMP, CBC [id number] 3) RTC in 1 yr Counseling Time: [...] [address] | | | | | | [place], [place] | | | | | | [address] | | | | | | [phone] | | | | | | | | +--------+---------+ + + + documented as of this encounter Visit Diagnoses + + | Diagnosis | + + | Primary biliary cirrhosis (HCC) - Primary Biliary cirrhosis | + + | Autoimmune hepatitis (HCC) Autoimmune hepatitis | + + documented in this encounter
--- OUTSIDE RECORDS SUMMARY | ~2019-12-22 | XMS | Encounter Summary ---
Demographics + + + | Address | [address] | | | [place] [address] | + + + | Home Phone | | + + + | Preferred Language | Unknown | + + + | Marital Status | Unknown | + + + | Orthodox Affiliation | Unknown | + + + | Race | Unknown | + + + | Ethnic Group | Unknown | + + + Author + + + | Author | [facility] | | | and [place] | + + + | Organization | [facility] | | | and [place] | + + + | Address | Unknown | + + + | Phone | Unavailable | + + + Care Team Providers + +------+ + | Care Destination Sign Repairer Name | Role | Phone | + +------+ + PCP | Unavailable | + +------+ + Encounter Details +--------+ + + + + | Date | Type | Department | Care Team | Description | +--------+ + + + + | 01/22/ | Hospital | [facility] | | | | 1991 - | Encounter | [facility] | | | | | | [facility] [address] | | | | 01/26/ | | [place], | | | | 1990 | | [place] [address] | | | | | | [phone] | | | +--------+ + + + + Social History + +-------+ +--------+------+ | Tobacco Use | Types | Packs/Day | Years | Date | | | | | Used | | + +-------+ +--------+------+ | Never Assessed | | | | | + +-------+ +--------+------+ + + + | Sex Assigned at | Date Recorded | | | | + + + | Not on file | | + + + documented as of this encounter Plan of Treatment Not on filedocumented as of this encounter Visit Diagnoses Not on filedocumented in this encounter"
--- OUTSIDE RECORDS SUMMARY | ~2019-12-22 | XMS | Encounter Summary ---
Demographics + + + | Address | [address] | | | [place] [address] | + + + | Home Phone | | + + + | Preferred Language | Unknown | + + + | Marital Status | | + + + | Confucianist Affiliation | CAT | + + + | Race | White | + + + | Ethnic Group | Not or | + + + Author + + + | Author | [facility] | + + + | Organization | [facility] | + + + | Address | Unknown | + + + | Phone | Unavailable | + + + Support + + + + + | Name | Relationship | Address | Phone | + + + + + | Roxana Bo | ECON | [address] | | | | | [place] | | | | | [address] | | + + + + + Care Team Providers + +------+ + | Care Table Assembler Name | Role | Phone | + [...] | 2010 | on | Center at [facility] [address] | [address] | management (Dose | | | | [address] | [place], [place] | adjustment for | | | | for Health and | [address] | [place]) | | | | [facility] 2 | [phone] | | | | | [place], [place] | | | | | | [address] | | | | | | [phone] | | | +--------+ + + + [...] [address] | | | | | | [place], [place] | | | | | | [address] | | | | | | [phone] | | | | | | | | +--------+---------+ + + + documented as of this encounter Visit Diagnoses Not on filedocumented in this encounter"
--- OUTSIDE RECORDS SUMMARY | ~2019-12-22 | XMS | Encounter Summary ---
Demographics + + + | Address | [address] | | | [place] [address] | + + + | Home Phone | | + + + | Preferred Language | Unknown | + + + | Marital Status | | + + + | Methodist Affiliation | CAT | + + + [...] + | Roxana Bo | ECON | [address] | | | | | [place] | | | | | [address] | | + + + + + Care Team Providers + +------+ + | Care Ballistics Expert Name | Role | Phone | + [...] | | 2012 | | Center at [facility] [address] | [address] | last refill 03/2012) | | | | [address] | [place], [place] | | | | | for Health and | [address] | | | | | [facility] 2 | [phone] | | | | | [place], [place] | | | | | | [address] | | | | | | [phone] | | | +--------+--------+ + + + [...] [address] | | | | | | [place], [place] | | | | | | [address] | | | | | | [phone] | | | | | | | | +--------+---------+ + + + documented as of this encounter Visit Diagnoses Not on filedocumented in this encounter"
--- OUTSIDE RECORDS SUMMARY | ~2019-12-22 | XMS | Encounter Summary ---
Demographics + + + | Address | [address] | | | [place] [address] | + + + | Home Phone [...] + + + | Author | [facility] | + + + | Organization | [facility] | + + + | Address | Unknown | + + + | Phone | Unavailable | + + + Support + + + + + | Name | Relationship | Address | Phone | + + + + + | Roxana Bo | ECON | [address] | | | | | [place] | | | | | [address] | | + + + + + Care Team Providers + +------+ + | Care Mechanical Maintenance Foreman Name | Role | Phone | [...] | | 2009 | | Center at [facility] [address] | [address] | | | | | [address] | [place], [place] | | | | | for Health and | [address] | | | | | [place] [address] | [phone] | | | | | [place], [place] | | | | | | [address] | | | | | | [phone] | | | +--------+ + + + [...] [address] | | | | | | [place], [place] | | | | | | [address] | | | | | | [phone] | | | | | | | | +--------+---------+ + + + documented as of this encounter Visit Diagnoses Not on filedocumented in this encounter"
--- OUTSIDE RECORDS SUMMARY | ~2019-12-22 | XMS | Encounter Summary ---
Demographics + + + | Address | [address] | | | [place] [address] | + + + | Home Phone [...] + | Roxana Bo | ECON | [address] | | | | | [place] | | | | | [address] | | + + + + + Care Team Providers + +------+ + | Care Book Trimmer Name | Role | Phone | + +------+ + | Ventura Carrasquillo MD | PCP | | + +------+ + Reason for Visit +--------+ + | Reason | Comments | +--------+ + | Other | External order request. | +--------+ + Encounter Details +--------+ + + + + | Date | Type | Department | Care Team | Description | +--------+ + + + + | 01/31/ | Documentati | [facility] | Lake Dennis MD | Other (External | | 2012 | on | Center at [facility] [address] | [address] | order request.) | | | | [address] | [place], [place] | | | | | for Health and | [address] | | | | | [facility] | [phone] | | | | | [place], [place] | | | | | | [address] | | | | | | [phone] | | | +--------+ + + + [...] Rogers | | | | | | [place], [place] | | | | | | [address] | | | | | | [phone] | | | | | | | | +--------+---------+ + + + documented as of this encounter Visit Diagnoses Not on filedocumented in this encounter"
--- OUTSIDE RECORDS SUMMARY | ~2019-12-22 | XMS | Encounter Summary ---
Demographics + + + | Address | [address] | | | [place] [address] | + + + | Home Phone [...] + | Roxana Bo | ECON | [address] | | | | | [place] | | | | | [address] | | + + + + + Care Team Providers + +------+ + | Care Keno Writer Name | Role | Phone | + +------+ + | Ventura Carrasquillo MD | PCP | | + +------+ + Reason for Visit + + + | Reason | Comments | + + + | Lab findings, | Patient request. | | teaching, guidance, | | | and counseling | | + + + Encounter Details +--------+ + + + + | Date | Type | Department | Care Team | Description | +--------+ + + + + | 12/16/ | MyChart | [facility] | Lake Dennis MD | RE: Bloodwork test | | 2013 | Encounter | Center at [facility] [address] | [address] | results | | | | [address] | [place], [place] | | | | | for Health and | [address] | | | | | [facility] 2 | [phone] | | | | | [place], [place] | | | | | | [address] | | | | | | [phone] | | | +--------+ + + + [...] Rogers | | | | | | [place], [place] | | | | | | [address] | | | | | | [phone] | | | | | | | | +--------+---------+ + + + documented as of this encounter Procedures + +--------+ + + + | Procedure Name | Priori | Date/Time | Associated Diagnosis | Comments | | | ty | | | | + +--------+ + + + | COMPLETE METABOLIC | Routin | 12/15/2012 | | Results for this | | SET | e | 9:35 AM | | procedure are in the | | (NA,K,CL,CO2,BUN,CRE | | PDT | | results section. | | AT,GLUC,CA,AST,ALT,B | | | | | | JONH TOTAL,ALK | | | | | | PHOS,ALB,PROT TOTAL) | | | | | + +--------+ + + + | CBC ONLY | Routin | 12/15/2012 | | Results for this | | | e | 9:35 AM | | procedure are in the | | | | PDT | | results section. | + +--------+ + + + documented in this encounter Results CBC ONLY (12/15/2012 9:35 AM PDT) + + + + + + [...] + + + + | HEMOGLOBIN | 14 | g/dL | [facility] | | | | | | LAB - | | | | | | [place] | | + + + + + + | HEMATOCRIT | 45.7 (H) | % | [facility] | | [...] + + + + | PLATELET | 327 | K/cu mm | [facility] | | [...] + + + + | INR | [address] [...] [address] | [place] | [phone] | | [place] | | | | + + + + + COMPLETE METABOLIC SET (NA,K,CL,CO2,BUN,CREAT,GLUC,CA,AST,ALT,BILI TOTAL,ALK PHOS,ALB,PROT TOTAL) (12/15/2012 9:35 AM PDT) + +-------+ + + + [...] +-------+ + + + | CREATININE | 0.87 | mg/dL | [facility] | | | [...] + + + | ALK PHOS | 98 | U/L | [facility] | | | | | | LAB - | | | | | | [place] | | + +-------+ + + + | AST(SGOT) | 18 | U/L | [facility] | | | | | | LAB - | | | | | | [place] | | + +-------+ + + + | SODIUM, | 140 | mmol/L | [facility] | | | PLASMA | | | LAB - | | | (LAB) | | | [place] | | + +-------+ + + + | POTASSIUM, | 3.6 [...] | + + + + + | [facility] - | [address] | [place], [place] | [phone] | | [place] | | | | + + + + + documented in this encounter Visit Diagnoses Not on filedocumented in this encounter"
--- OUTSIDE RECORDS SUMMARY | ~2019-12-22 | XMS | Encounter Summary ---
Demographics + + + | Address | [address] | | | [place] [address] | + + + | Home Phone [...] + | Roxana Bo | ECON | [address] | | | | | [place] | | | | | [address] | | + + + + + Care Team Providers + +------+ + | Care Extension Edger Name | Role | Phone | [...] | | | Procedures | FAMILY | [place], [place] | | | | | CONSULT TO | MEDICINE | [address] | | | | | HEPATOLOGY | [address] | Phone: | | | | | liver bx | [address] | [phone] | | | | | | [place], | Fax: | | | | | | [place] [address] | [phone] | | | | | | Phone: | | | | | | | [phone] | | | | | | | Fax: | | | | | | | [phone] | | +--------+ + + + + + Encounter Details +--------+---------+ + + + | Date | Type | Department | Care Team | Description | +--------+---------+ + + + | 10/03/ | Office | Dig[facility]ive Health | Lake Dennis MD | Autoimmune hepatitis | | 2012 | Visit | Center at [facility] [address] | [address] | (HCC); Primary | | | | [address] | [facility] [place] | biliary cirrhosis | | | | for Health and | [address] | (HCC) | | | | [place] [address] | [phone] | | | | | [facility] [place] | | | | | | [address] | | | | | | [phone] | | | +--------+---------+ + + + [...] + + + | Blood Pressure | 195/109 | 02/04/2012 2:52 PM | | | | | PDT | | + + + + + | Pulse | 92 | 02/04/2012 2:52 PM | | | | | PDT | | + + + + + | Temperature | 36.7 C (98.1 F) | 02/04/2012 2:52 PM | | | | | PDT | | + + + + + | Respiratory Rate | 17 | 02/04/2012 2:52 PM | | | | | PDT | | + + + + + | Oxygen Saturation | - | - | | + + + + + | Inhaled Oxygen | - | - | | | Concentration | | | | + + + + + | Weight | 85.4 kg (188 lb 4.8 | 02/04/2012 2:52 PM | | | | oz) | PDT | | + + + + + | Height | 160 cm (5' 3") | 02/04/2012 2:52 PM | | | | | PDT | | + + + + + | Body Mass Index | 33.36 | 02/04/2012 2:52 PM | | | | | PDT | | + + + + + documented in this encounter Progress Notes Lake Dennis MD - 02/04/2012 3:18 PM GEORGI personally interviewed the patient, performed th e pertinent parts of the physical examination and personally formulated the plan with the re sident. I agree with the residents documentation and have documented any additions or excep tions. Ariadna Kwon Md - 02/04/2012 2:45 PM PDT HEPATOLOGY FOLLOW UP VISIT Diagnoses: [...] 6. Hysterectomy, sinus surgery, and dental implant. Interval Events: Feeling well. No abdominal pain, no swelling. No pruritis. No nausea or vomiting. Somet balaji has loose stools (brown - no blood, no kiran-colored stools), but typically has normal b owel movements. Most recent labs from December 31 - reviewed and within normal limits. Current Outpatient Prescriptions on File Prior to Visit Medication Sig Dispense Refill alendronate-vitamin D 70-2,800 mg-unit Oral Tablet Take 1 Tab by mouth every seven days . azaTHIOprine 50 mg Oral Tablet Take 1 Tab by mouth once daily. Administer after meals. 30 Tab 11 cclyfmevssyu-psbgecp-qpybyca-folic acid chewable 200-0.4 mg Oral Tablet, Chewable Take 2 Tabs by mouth once daily. bmqfkskudibl-onviihc-dtxf-lutein (CENTRUM SILVER ULTRA WOMEN'S) Oral Tablet Take 1 Tab by mouth once daily. ursodiol 300 mg Oral Capsule Take 3 Caps by mouth once daily at bedtime. 90 Cap 11 Temp: 36.7 C (98.1 F) Pulse: 92 Resp: 17 BP: 195/109 mmHg Body mass index is 33.36 kg/(m^2). Gen: comfortable appearing, nad HEENT: sclera anicteric CV: rrr, no m/r/g Lungs: CTAB Abd: soft, nontender, normoactive bs, no appreciable HSM, no rebound or guarding Ext: wwp, no cyndi Skin: no jaundice Ref. Range 10/07/2011 00:00 SODIUM, PLASMA (LAB) No range found 139 POTASSIUM, PLASMA (LAB) No range found 3.2 (L) BUN, PLASMA (LAB) No range found 11 CREATININE PLASMA (LAB) No range found 0.78 GLUCOSE, PLASMA (LAB) Default Range: 65 - 110 mg/dL 99 AST(SGOT) No range found 17 ALT (SGPT) No range found 9 ALK PHOS No range found 123 BILIRUBIN TOTAL No range found 0.4 ALBUMIN, PLASMA (LAB) No range found 3.9 Ref. Range 10/07/2011 00:00 WHITE CELL COUNT Latest Range: 3.4-10.0 K/cu mm 5.5 HEMOGLOBIN Latest Range: 12.2-15.0 g/dL 14.8 HEMATOCRIT Latest Range: 37.0-46.5 % 47 (H) PLATELET COUNT No range found 361 INR Latest Range: 0.98-1.20 INR 0.9 Outside 01/01/12 labs AST 18 ALT 12 tbili 0.4 Alk phos 125 WBC 4.4 Hct 50.4 Plt 314 BUN 15 Cr 0.72 IMPRESSION 61 yo woman with autoimmune hepatitis and PBC (primary AIH) who presents to liver clinic fo r follow-up. Doing well from a liver standpoint w/ disease well controlled with both medica tions. Counseled patient on continued efforts on weight loss with daily exercise to help de crease risk of both fatty liver disease and heart disease. RECOMMENDATIONS - fruits/vegetables and healthy diet as well as daily 15-20 minute exercise - continue current doses of ursodiol and azathioprine - continue labs (CBC, CMP, INR) every 3 months - RTC in 1 year This plan was discussed and formulated with the gastroenterology attending of [facility], Dr Marci euceda, who agrees with the above assessment and recommendations. Roddy Rivera MD Fellow, Gastroenterology/Hepatology pgr [phone] documented in this encounter Plan of Treatment +--------+---------+ + + + | Date | Type | Specialty | Care Team | Description | +--------+---------+ + + + | 01/26/ | Office | Hepatology | Lake Dennis MD | | | 2020 | Visit | | [address] | | | | | | [place], [place] | | | | | | [address] | | | | | | [phone] | | | | | | | | +--------+---------+ + + + documented as of this encounter Visit Diagnoses + + | Diagnosis | + + | Autoimmune hepatitis (HCC) Autoimmune hepatitis | + + | Primary biliary cirrhosis (HCC) Biliary cirrhosis | + + documented in this encounter
--- OUTSIDE RECORDS SUMMARY | ~2019-12-22 | XMS | Encounter Summary ---
Demographics + + + | Address | [address] | | | [place] [address] | + + + | Home Phone | | + + + | Preferred Language | Unknown | + + + | Marital Status | | + + + | Tenriism Affiliation | CAT | + + + | Race | White | + + + | Ethnic Group | Not or | + + + Author + + + | Author | [facility] | + + + | Organization | [facility] | + + + | Address | Unknown | + + + | Phone | Unavailable | + + + Support + + + + + | Name | Relationship | Address | Phone | + + + + + | Roxana Bo | ECON | [address] | | | | | [place] | | | | | [address] | | + + + + + Care Team Providers + +------+ + | Care Mangle Tender Name | Role | Phone | [...] | 2018 | Encounter | Center at [facility] [address] | [address] | | | | | [address] | [place], [place] | | | | | for Health and | [address] | | | | | Healing, [address] | [phone] | | | | | [place], [place] | | | | | | [address] | | | | | | [phone] | | | +--------+ + + + [...] [address] | | | | | | [place], [place] | | | | | | [address] | | | | | | [phone] | | | | | | | [...] | | (substance) | + + + +---------+ + + [...] | | (substance) | + + + +---------+ + + | Performing | Address | City/State/Zipcode | Phone Number | | Organization | | | | + +---------+ + + | NON [facility] | | | | + +---------+ + + documented in this encounter Visit Diagnoses Not on filedocumented in this encounter"
--- OUTSIDE RECORDS SUMMARY | ~2019-12-22 | XMS | Encounter Summary ---
Demographics + + + | Address | [address] | | | [place] [address] | + + + | Home Phone | | + + + | Preferred Language | Unknown | + + + | Marital Status | | + + + | Christian Affiliation | CAT | + + + [...] + | Roxana Bo | ECON | [address] | | | | | [place] | | | | | [address] | | + + + + + Care Team Providers + +------+ + | Care Broadcast Technician Name | Role | Phone | + +------+ + | No Pcp Per Patient | PCP | Unavailable | + +------+ + Encounter Details +--------+ + + + + | Date | Type | Department | Care Team | Description | +--------+ + + + + | 05/24/ | MyChart | Digestive Health | Lake Dennis MD | RE: Test Results | | 2015 | Encounter | Center at [facility] [address] | [address] | | | | | [address] | [place], [place] | | | | | for Health and | [address] | | | | | Healing, [address] | [phone] | | | | | [place], [place] | | | | | | [address] | | | | | | [phone] | | | +--------+ + + + [...] [address] | | | | | | [place] | | | | | | [address] | | | | | | [phone] | | | | | | | | +--------+---------+ + + + documented as of this encounter Visit Diagnoses Not on filedocumented in this encounter"
--- OUTSIDE RECORDS SUMMARY | ~2019-12-22 | XMS | Encounter Summary ---
Demographics + + + | Address | [address] | | | [place] [address] | + + + | Home Phone [...] + | Roxana Bo | ECON | [address] | | | | | [place] | | | | | [address] | | + + + + + Care Team Providers + +------+ + | Care Crating And Moving Estimator Name | Role | Phone | + [...] | Encounter | Center at [facility] [address] | [address] | | | | | [address] | [place], [place] | | | | | for Health and | [address] | | | | | Healing, [address] | [phone] | | | | | [place], [place] | | | | | | [address] | | | | | | [phone] | | | +--------+ + + + [...] [address] | | | | | | [place], [place] | | | | | | [address] | | | | | | [phone] | | | | | | | [...]
--- OUTSIDE RECORDS SUMMARY | ~2019-12-22 | XMS | Encounter Summary ---
Demographics + + + | Address | [address] | | | [place] [address] | + + + | Home Phone | | + + + | Preferred Language | Unknown | + + + | Marital Status | | + + + | Nondenominational Affiliation | CAT | + + + [...] + | Roxana Bo | ECON | [address] | | | | | [place] | | | | | [address] | | + + + + + Care Team Providers + +------+ + | Care Manager Residential Name | Role | Phone | + [...] | | | biliary | REFERRING | [place], [place] | | | | | cirrhosis | PROVIDER PER | [address] | | | | | Procedures | PT | Phone: | | | | | [place] | | [phone] | | | | | OFFICE/OUTPT | | Fax: | | | | | | | [phone] | | | | | VISIT,EST,LE | [...] | 2018 | Visit | Center at [facility] [address] | [address] | cholangitis (HCC) | | | | [address] | [place], [place] | (Primary Dx); | | | | for Health and | [address] | Autoimmune hepatitis | | | | [facility] | [phone] | (HCC) | | | | [place], [place] | | | | | | [address] | | | | | | [phone] | | | +--------+---------+ + + + [...] from [employer]. HEPATOLOGY FOLLOW UP VISIT Diagnoses (Problem list [...] 1,000 Units by mo uth once daily. cjouresdlycp-cxgnlvn-uqpg-lutein (CENTRUM SILVER ULTRA WOMEN'S) Oral Tablet Take 1 Tab by mouth once daily. [place]-3 Fatty Acids-Vitamin E (FISH OIL) 1,000 mg [...] 2020 | Visit | | [address] | | | | | | [place], [place] | | | | | | [address] | | | | | | [phone] | | | | | | | | +--------+---------+ + + + documented as of this encounter Visit Diagnoses + + | Diagnosis | + + | Primary biliary cholangitis (HCC) - Primary | + + | Autoimmune hepatitis (HCC) Autoimmune hepatitis | + + documented in this encounter
--- OUTSIDE RECORDS SUMMARY | ~2019-12-22 | XMS | Encounter Summary ---
Demographics + + + | Address | [address] | | | [place] [address] | + + + | Home Phone | | + + + | Preferred Language | Unknown | + + + | Marital Status | | + + + | Alevism Affiliation | CAT | + + + | Race | White | + + + | Ethnic Group | Not or | + + + Author + + + | Author | [facility] | + + + | Organization | [facility] | + + + | Address | Unknown | + + + | Phone | Unavailable | + + + Support + + + + + | Name | Relationship | Address | Phone | + + + + + | Roxana Bo | ECON | [address] | | | | | [place] | | | | | [address] | | + + + + + Care Team Providers + +------+ + | Care Client Service Associate Name | Role | Phone | + +------+ + | Ventura Carrasquillo MD | PCP | | + +------+ + Encounter Details +--------+ + + + + | Date | Type | Department | Care Team | Description | +--------+ + + + + | 03/25/ | Abstract | Digestive Health | Lake Dennis MD | | | 2010 | | [place] [address] [address] | [address] | | | | | [address] | [facility] [place] | | | | | for Health and | [address] | | | | | [facility], [address] | [phone] | | | | | [place], [place] | | | | | | [address] | | | | | | [phone] | | | +--------+ + + + [...] [address] | | | | | | [place] | | | | | | [address] | | | | | | [phone] | | | | | | | | +--------+---------+ + + + documented as of this encounter Visit Diagnoses Not on filedocumented in this encounter"
--- OUTSIDE RECORDS SUMMARY | ~2019-12-22 | XMS | Encounter Summary ---
Demographics + + + | Address | [address] | | | [place] [address] | + + + | Home Phone [...] + | Roxana Bo | ECON | [address] | | | | | [place] | | | | | [address] | | + + + + + Care Team Providers + +------+ + | Care Quality Control Analyst Name | Role | Phone | [...] + + + + | 09/08/ | Abstract | Digestive Health | Lake Dennis MD | Blood Test Results | | 2018 | | Center at [facility] [address] | [address] | | | | | [address] | [place], [place] | | | | | for Health and | [address] | | | | | [facility] 2 | [phone] | | | | | [place], [place] | | | | | | [address] | | | | | | [phone] | | | +--------+ + + + [...] [address] | | | | | | [place], [place] | | | | | | [address] | | | | | | [phone] | | | | | | | | +--------+---------+ + + + documented as of this encounter Visit Diagnoses Not on filedocumented in this encounter"
--- OUTSIDE RECORDS SUMMARY | ~2019-12-22 | XMS | Encounter Summary ---
Demographics + + + | Address | [address] | | | [place] [address] | + + + | Home Phone [...] + | Roxana Bo | ECON | [address] | | | | | [place] | | | | | [address] | | + + + + + Care Team Providers + +------+ + | Care Operations Supervisor Name | Role | Phone | + +------+ + | Ventura Carrasquillo MD | PCP | | + +------+ + Encounter Details +--------+ + + + + | Date | Type | Department | Care Team | Description | +--------+ + + + + | 09/08/ | MyChart | Digestive Health | Lake Dennis MD | RE: Lab Results | | 2020 | Encounter | Center at [facility] [address] | [address] | | | | | [address] | [place], [place] | | | | | for Health and | [address] | | | | | Healing, [address] | [phone] | | | | | [place], [place] | | | | | | [address] | | | | | | [phone] | | | +--------+ + + + [...] [address] | | | | | | [place], [place] | | | | | | [address] | | | | | | [phone] | | | | | | | | +--------+---------+ + + + + +------+--------+ + + | Name | Type | Priori | Associated Diagnoses | Order Schedule | | | | ty | | | + +------+--------+ + + | COMPLETE METABOLIC | Lab | Routin | Autoimmune | Every 16 weeks for 4 | | SET | | e | hepatitis (HCC) | Occurrences | | (NA,K,CL,CO2,BUN,CRE | | | Primary biliary | starting 09/09/2019 | | AT,GLUC,CA,AST,ALT,B | | | cholangitis (HCC) | until 10/09/2020 | | JONH TOTAL,ALK | | | | | | PHOS,ALB,PROT TOTAL) | | | | | + +------+--------+ + + | CBC ONLY | Lab | Routin | Autoimmune | Every 16 weeks for 4 | | | | e | hepatitis (HCC) | Occurrences | | | | | Primary biliary | starting 09/09/2019 | | | | | cholangitis (HCC) | until 10/09/2020 | + +------+--------+ + + documented as of this encounter Visit Diagnoses + + | Diagnosis | + + | Autoimmune hepatitis (HCC) - Primary Autoimmune hepatitis | + + | Primary biliary cholangitis (HCC) | + + documented in this encounter"
--- OUTSIDE RECORDS SUMMARY | ~2019-12-22 | XMS | Clinical Summary ---
Demographics + + + | Address | [address] | | | [place] [address] | + + + | Home Phone | | + + + | Preferred Language | Unknown | + + + | Marital Status | | + + + | Baptist Affiliation | CAT | + + + | Race | White | + + + | Ethnic Group | Not or | + + + Author + + + | Author | [facility] | + + + | Organization | [facility] | + + + | Address | Unknown | + + + | Phone | Unavailable | + + + Support + + + + + | Name | Relationship | Address | Phone | + + + + + | Roxana Bo | ECON | [address] | | | | | [place] | | | | | [address] | | + + + + + Care Team Providers + +------+ + | Care Health Care Marketing Specialist Name | Role | Phone | + +------+ + | Ventura Carrasquillo MD | PCP | | + +------+ + Source Comments [facility] is fully live on both [facility] and [facility] InPatient.[facility] Allergies + + + + + + | Active Allergy | Reactions | Severity | Noted | Comments | | | | | Date | | + + + + + + | Doxycycline | Dizziness, Nausea | | 01/27/20 | | | | | | 17 | | + + + + + + Medications + + + +---------+------+------+-------+ | Medication | Sig | Dispensed | Refills | Star | End | Statu | | | | | | t | Date | s | | | | | | Date | | | + + + +---------+------+------+-------+ | | Take 1 Tab by mouth | | 0 | | | Activ | | multivitamin-mineral | once daily. | | | | | e | | -iron-lutein | | | | | | | | (CENTRUM SILVER | | | | | | | | ULTRA WOMEN'S) Oral | | | | | | | | Tablet | | | | | | | + + + +---------+------+------+-------+ | [place]-3 Fatty | Take 2 Caps by mouth | | 0 | 10/0 | | Activ | | Acids-Vitamin E | once daily. | | | 8/20 | | e | | (FISH OIL) 1,000 mg | | | | 12 | | | | Oral capsule | | | | | | | + + + +---------+------+------+-------+ | cephALEXin 500 mg | Take 4 caps by mouth | | 0 | 10/0 | | Activ | | Oral capsule | prior to procedure. | | | 8/20 | | e | | | | | | 12 | | | + + + +---------+------+------+-------+ | CALCIUM | Take 1,000 Units by | | 0 | | | Activ | | CARBONATE/VITAMIN D3 | mouth once daily. | | | | | e | | (VITAMIN D-3 ORAL) | | | | | | | + + + +---------+------+------+-------+ | cholecalciferol, | Take 1,000 Units by | | 0 | | | Activ | | Vitamin D3, (VITAMIN | mouth once daily. | | | | | e | | D3) 1,000 unit oral | | | | | | | | tablet | | | | | | | + + + +---------+------+------+-------+ | alendronate 70 mg | | | 0 | 09/1 | | Activ | | oral tablet | | | | 4/20 | | e | | | | | | 17 | | | + + + +---------+------+------+-------+ | | Take 1 tablet by | | 0 | 09/2 | | Activ | | amoxicillin-clavulan | mouth two times | | | 0/20 | | e | | ate 875-125 mg oral | daily. | | | 17 | | | | tablet | | | | | | | + + + +---------+------+------+-------+ | TURMERIC ORAL | Take by mouth. | | 0 | | | Activ | | | | | | | | e | + + + +---------+------+------+-------+ | | Take by mouth. | | 0 | | | Activ | | mv-mn/lutein/zeax/bi | | | | | | e | | lber/hb277 (MACULAR | | | | | | | | HEALTH FORMULA ORAL) | | | | | | | + + + +---------+------+------+-------+ | URSODIOL 300 mg | take 3 capsules by | 270 | 3 | 10/2 | | Activ | | oral capsule | mouth at bedtime | capsule | | 1/20 | | e | | | | | | 19 | | | + + + +---------+------+------+-------+ | AZATHIOPRINE 50 mg | take 1 tablet by | 90 | 3 | 10/2 | | Activ | | oral tablet | mouth once daily | tablet | | 1/20 | | e | | | AFTER MEALS | | | 19 | | | + + + +---------+------+------+-------+ Active Problems + + + | Problem | Noted Date | + + + | Autoimmune hepatitis | 06/15/2009 | + + + | Primary biliary cholangitis | 06/15/2009 | + + + Resolved Problems + + + + | Problem | Noted | Resolved | | | Date | Date | + + + + | Nonspecific abnormal results of liver function study | 02/20/20 | | | | 09 | 4 | + + + + Social History + [...] recent travel history available. | + + Last Filed Vital Signs + + + [...] | | + + + + + Plan of Treatment +--------+---------+ + + + | Date | Type | Specialty | Care Team | Description | +--------+---------+ + + + | 01/26/ | Office | Hepatology | Lake Dennis MD | | | 2020 | Visit | | [address] | | | | | | [place], [place] | | | | | | [address] | | | | | | [phone] | | | | | | | | +--------+---------+ + + + + + + + + | Health Maintenance | Due Date | Last Done | Comments | + + + + + | Hepatocellular | | | | | carcinoma screening | 2 | | | + + + + + | Pneumococcal | | | | | vaccination (1 of 2 | 7 | | | | - PCV13) | | | | + + + + + | Influenza (Flu) | | | | | vaccination (#1) | 0 | | | + + + + + Results Not on filefrom Last 3 Months Insurance + +--------+ +--------+ + +--------+ | Payer | Benefi | Subscriber | Effect | Phone | Address | Type | | | t Plan | ID | dereck | | | | | | / | | Dates | | | | | | Group | | | | | | + +--------+ +--------+ + +--------+ | MEDICARE | MEDICA | xxxxxxxxxxx | 06/04/19 | [phone] | [address] | Medica | | | RE A & | | 17-Pre | 1 | [id number] | re | | | B | | sent | | [place] | | | | | | | | [id number] | | + +--------+ +--------+ + +--------+ | MODA MEDICARE | MODA | xxxxxxxxx | 12/03/19 | [phone] | [address] | POS | | SUPPLEMENT | MEDICA | | 17-Pre | 4 | [id number] | | | | RE | | sent | | [place] | | | | SUPPLE | | | | [place] [address] | | | | MENT | | | | | | + +--------+ +--------+ + +--------+ + +--------+ +--------+ + + | Guarantor Name | Accoun | Relation to | Date | Phone | Billing Address | | | t Type | Patient | of | | | | | | | | | | + +--------+ +--------+ + + | Dora Bo | Person | Self | [birth year] | [address] | | | al/Fam | | 1950 | [phone] | [place] [address] | | | prasad | | | 1 (Home) | | + +--------+ +--------+ + + Advance Directives + + + + + | Type | Date Recorded | Patient | Explanation | | | | Disintegrator Feeder | | + + + + + | Advance | | | | | Directives and | | | | | Living Will | | | | + + + + + | Power of | | | | | Clothes Designer | | | | + + + + +
--- OUTSIDE RECORDS SUMMARY | ~2019-12-22 | XMS | Encounter Summary ---
Demographics + + + | Address | [address] | | | [place] [address] | + + + | Home Phone [...] + | Roxana Bo | ECON | [address] | | | | | [place] | | | | | [address] | | + + + + + Care Team Providers + +------+ + | Care Wrapper Hand Name | Role | Phone | + [...] | 2018 | Encounter | Center at [facility] [address] | [address] | Refill | | | | [address] | [place], [place] | | | | | for Health and | [address] | | | | | Healing, [address] | [phone] | | | | | [place], [place] | | | | | | [address] | | | | | | [phone] | | | +--------+ + + + [...] [address] | | | | | | [place], [place] | | | | | | [address] | | | | | | [phone] | | | | | | | | +--------+---------+ + + + documented as of this encounter Visit Diagnoses Not on filedocumented in this encounter"
--- OUTSIDE RECORDS SUMMARY | ~2019-12-22 | XMS | Encounter Summary ---
Demographics + + + | Address | [address] | | | [place] [address] | + + + | Home Phone [...] + | Roxana Bo | ECON | [address] | | | | | [place] | | | | | [address] | | + + + + + Care Team Providers + +------+ + | Care Quiller Runner Name | Role | Phone | + +------+ + | Ventura Carrasquillo MD | PCP | | + +------+ + Encounter Details +--------+ + + + + | Date | Type | Department | Care Team | Description | +--------+ + + + + | 01/04/ | Document-Sc | UNKNOWN DEPARTMENT | Unknown . | | | 2013 | anned | [address] | | | | | | [address] | | | | | | [place], [place] | | | | | | [address] | | | +--------+ + + + [...] | +--------+---------+ + + + | 01/26/ Office | Hepatology | Lake Dennis MD | | | 2020 | Visit | | [address] | | | | | | [place], [place] | | | | | | [address] | | | | | | [phone] | | | | | | | | +--------+---------+ + + + documented as of this encounter Procedures + +--------+ + + + | Procedure Name | Priori | Date/Time | Associated Diagnosis | Comments | | | ty | | | | + +--------+ + + + | LAB REPORTS | | 01/04/2014 | | Results for this | | | | 12:00 AM | | procedure are in the | | | | PDT | | results section. | + +--------+ + + + documented in this encounter Results LAB REPORTS (01/04/2014 12:00 AM PDT) + + + | Narrative | Performed At | + + + | | | | | | + + + + + | Procedure Note | + + | Rg Richards - 02/24/2014 10:32 AM PDT | + + documented in this encounter Visit Diagnoses Not on filedocumented in this encounter"
--- OUTSIDE RECORDS SUMMARY | ~2019-12-22 | XMS | Encounter Summary ---
Demographics + + + | Address | [address] | | | [place] [address] | + + + | Home Phone [...] + | Roxana Bo | ECON | [address] | | | | | [place] | | | | | [address] | | + + + + + Care Team Providers + +------+ + | Care Signal System Testing Maintainer Name | Role | Phone | + +------+ + | Ventura Carrasquillo MD | PCP | | + +------+ + Encounter Details +--------+ + + + + | Date | Type | Department | Care Team | Description | +--------+ + + + + | 02/14/ | Letter-[facility] | Digestive Health | Lake Dennis MD | Letters | | 2008 | scribed | Center at [facility] [address] | [address] | | | | [address] | [place], [place] | | | | | for Health and | [address] | | | | | [facility], [address] | [phone] | | | | | [place], [place] | | | | | | [address] | | | | | | [phone] | | | +--------+ + + + [...] documented as of this encounter Progress Notes Lake Dennis MD - 02/15/2009 9:58 AM PDT [id number] 02/14/2009 [id number] RACHEAL Galarza[address] [facility] [address] [place] [address] or February 14, 2009 Ventura Carrasquillo M.D. [facility] [address] [place] [address] RE: DALIA BO MR #: [id number] Dear Ventura: I had the pleasure of seeing your patient, Dalia Bo. As you will recall, you requested a consult for a workup of abnormal liver tests, possible fatty liver disease versus autoimmune hepatitis. History of Present Illness: The patient's medical records that were sent were reviewed and discussed with the patient and summarized as follows. Dalia Bo is a 58-year-old female who, in 2008, was noted to have abnormal liver tests. A workup at that time included viral hepatitis serologies, which were all negative. She had an imaging study that showed possible fatty infiltration. She did have workup of some rheumatologic complaints and was noted to have an LYDIA that was elevated at 1:320, so there was a concern that this could be potentially autoimmune hepatitis. Of note, she is overweight with a BMI of nearly 35, she does have labile blood pressure, and her cholesterol is above 200; however, she does not have diabetes. She does, therefore, have risk factors for fatty liver disease. She denies encephalopathy, ascites, or variceal hemorrhage. She does complain of fatigue. Review of Systems: Otherwise negative. Diagnoses: 1. Abnormal liver tests. 1.1. Imaging study shows fatty infiltration; however, she does have an elevated LYDIA at 1:320. 1.2. Viral serologies are all negative. 1.3. No overt evidence of cirrhosis. 2. Obesity. 3. Labile hypertension. 4. Possible mild hyperlipidemia. 5. Joint complaints. 6. Hysterectomy, sinus surgery, and dental implant. Medications: None. Allergies: None. Social History: She is here with her . No alcohol, tobacco, or IV drug use. Family Medical History: Noncontributory. Physical Exam: General: Pleasant female in no apparent distress. Vital Signs: Blood pressure 183/99, pulse 88, respiratory rate 16. Weight 188 pounds, height 5 feet 2 inches, BMI 34.5. Skin: Without spider angiomata. No evidence of jaundice. HEENT: Sclerae are anicteric. Neck: Supple. Lungs: Clear to auscultation. Cardiovascular: Regular rate and rhythm. Abdomen: Normoactive bowel sounds. Soft, nontender, nondistended, without hepatosplenomegaly. Extremities: No evidence of cyanosis, clubbing, or edema. Data: As outlined above. In addition, white count 5.7, hemoglobin 15.3, platelet count 377. Assessment: Ms. Bo is here for further evaluation of abnormal liver tests and a positive LYDIA, and an imaging study that was consistent with fatty infiltration. The differential includes nonalcoholic fatty liver disease versus autoimmune hepatitis. I think we need to proceed with further workup, including doing an expanded autoimmune panel, as well as a liver biopsy to differentiate between fatty liver disease and autoimmune hepatitis. I did spend a great deal of time talking with her, that no matter what the diagnosis is, she should concentrate on weight loss with diet and exercise, as it will help with a lot of her other issues, including mild hyperlipidemia and hypertension, and there is evidence that suggests weight loss does reduce fatty infiltration of the liver. Plan: 1. We will repeat a complete metabolic profile, CBC, INR, platelet count, and differential today. We will also check LYDIA, anti-smooth muscle antibody, and a serum protein electrophoresis. 2. Schedule patient for an ultrasound-guided liver biopsy. The risks of the procedure were reviewed with the patient and she is agreeable to proceed. 3. She will call me 1 week after her liver biopsy to review the above studies. If she has findings consistent with autoimmune hepatitis, then she will need to see me in followup to determine the best treatment management. On the other hand, if findings point to essentially fatty liver disease, then, as outlined above, she will work on weight loss. She should target losing about 20 pounds to 30 pounds a year, until she gets to an ideal body weight. If it is just fatty liver disease, I will send a note to you to make sure that you get followup on the liver biopsy, and she will not need a followup appointment with me at that time. Thank you for allowing me to participate in the care of Dalia Bo. Please do not hesitate to contact me if I can provide you with any additional information. Sincerely, Lake Dennis M.D. YUNI / HS [id number] / [id number] / [id number] / documented in this encou nter Plan of Treatment +--------+---------+ + + + | Date | Type | Specialty | Care Team | Description | +--------+---------+ + + + | 01/26/ | Office | Hepatology | Lake Dennis MD | | | 2020 | Visit | | [address] | | | | | | [place], [place] | | | | | | [address] | | | | | | [phone] | | | | | | | | +--------+---------+ + + + documented as of this encounter Visit Diagnoses Not on filedocumented in this encounter"
--- OUTSIDE RECORDS SUMMARY | ~2019-12-22 | XMS | Encounter Summary ---
Demographics + + + | Address | [address] | | | [place] [address] | + + + | Home Phone [...] + | Roxana Bo | ECON | [address] | | | | | [place] | | | | | [address] | | + + + + + Care Team Providers + +------+ + | Care Stoker Mechanic Name | Role | Phone | + +------+ + | Ventura Carrasquillo MD | PCP | | + +------+ + Encounter Details +--------+ + + + + | Date | Type | Department | Care Team | Description | +--------+ + + + + | 10/07/ | Telephone | Digestive Health | Lake Dennis MD | | | 2011 | | [place] [address] [address] | [address] | | | | [address] | [place], [place] | | | | | for Health and | [address] | | | | | [facility] 2 | [phone] | | | | | [place], [place] | | | | | | [address] | | | | | | [phone] | | | +--------+ + + + [...] [address] | | | | | | [place] | | | | | | [address] | | | | | | [phone] | | | | | | | | +--------+---------+ + + + documented as of this encounter Visit Diagnoses Not on filedocumented in this encounter"
--- OUTSIDE RECORDS SUMMARY | ~2019-12-22 | XMS | Encounter Summary ---
Demographics + + + | Address | [address] | | | [place] [address] | + + + | Home Phone [...] + | Roxana Bo | ECON | [address] | | | | | [place] | | | | | [address] | | + + + + + Care Team Providers + +------+ + | Care Fire Observer Name | Role | Phone | + [...] Test | | 2014 | Encounter | Center at [facility] [address] | [address] | results | | | | [address] | [place], [place] | | | | | for Health and | [address] | | | | | [facility], [address] | [phone] | | | | | [place], [place] | | | | | | [address] | | | | | | [phone] | | | +--------+ + + + [...] [address] | | | | | | [place], [place] | | | | | | [address] | | | | | | [phone] | | | | | | | [...] [address] | [place], [place] | [phone] | | [place] | | | | [...] + +---------+ + + + | [facility] ([facility]) | 14 | U/L | [facility] | [...] + + | [facility] - | [address] | [place], [place] | [phone] | | [place] | | | | + + + + + documented in this encounter Visit Diagnoses Not on filedocumented in this encounter"
--- OUTSIDE RECORDS SUMMARY | ~2019-12-22 | XMS | Encounter Summary ---
Demographics + + + | Address | [address] | | | [place] [address] | + + + | Home Phone [...] + | Roxana Bo | ECON | [address] | | | | | [place] | | | | | [address] | | + + + + + Care Team Providers + +------+ + | Care Acoustical Logging Engineer Name | Role | Phone | [...] | | 2018 | | Center at [facility] [address] | [address] | | | | | [address] | [place], [place] | | | | | for Health and | [address] | | | | | [facility] 2 | [phone] | | | | | [place], [place] | | | | | | [address] | | | | | | [phone] | | | +--------+ + + + [...] [address] | | | | | | [place], [place] | | | | | | [address] | | | | | | [phone] | | | | | | | | +--------+---------+ + + + documented as of this encounter Visit Diagnoses Not on filedocumented in this encounter"
--- OUTSIDE RECORDS SUMMARY | ~2019-12-22 | XMS | Encounter Summary ---
Demographics + + + | Address | [address] | | | [place] [address] | + + + | Home Phone [...] + | Roxana Bo | ECON | [address] | | | | | [place] | | | | | [address] | | + + + + + Care Team Providers + +------+ + | Care Shellfish Grower Name | Role | Phone | + [...] | +--------+ + + + + | 09/05/ | Abstract | Digestive Health | Lake Dennis MD | Medical Records | | 2020 | | Center at [facility] [address] | [address] | Review | | | [address] | [place], [place] | | | | | for Health and | [address] | | | | | [place] [address] | [phone] | | | | | [place], [place] | | | | | | [address] | | | | | | [phone] | | | +--------+ + + + [...] [address] | | | | | | [place], [place] | | | | | | [address] | | | | | | [phone] | | | | | | | | +--------+---------+ + + + documented as of this encounter Visit Diagnoses Not on filedocumented in this encounter"
--- OUTSIDE RECORDS SUMMARY | ~2019-12-22 | XMS | Encounter Summary ---
Demographics + + + | Address | [address] | | | [place] [address] | + + + | Home Phone [...] Author | [facility] | + + + | Organization | [facility] | + + + | Address | Unknown | + + + | Phone | Unavailable | + + + Support + + + + + | Name | Relationship | Address | Phone | + + + + + | Roxana Bo | ECON | [address] | | | | | [place] | | | | | [address] | | + + + + + Care Team Providers + +------+ + | Care Sweatband Maker Name | Role | Phone | + [...] | 2014 | Encounter | Center at [facility] [address] | [address] | results | | | | [address] | [place], [place] | | | | | for Health and | [address] | | | | | [facility], [address] | [phone] | | | | | [place], [place] | | | | | | [address] | | | | | | [phone] | | | +--------+ + + + [...] [address] | | | | | | [place], [place] | | | | | | [address] | | | | | | [phone] | | | | | | | [...] [address] | [place], [place] | [phone] | | [place] | | | | [...] + + | [facility] - | [address] | [place], [place] | [phone] | | [place] | | | | + + + + + documented in this encounter Visit Diagnoses Not on filedocumented in this encounter"
--- OUTSIDE RECORDS SUMMARY | ~2019-12-22 | XMS | Encounter Summary ---
Demographics + + + | Address | [address] | | | [place] [address] | + + + | Home Phone [...] + + + | Author | [facility] | + + + | Organization | [facility] | + + + | Address | Unknown | + + + | Phone | Unavailable | + + + Support + + + + + | Name | Relationship | Address | Phone | + + + + + | Roxana Bo | ECON | [address] | | | | | [place] | | | | | [address] | | + + + + + Care Team Providers + +------+ + | Care Director Of Materials Management Name | Role | Phone | + [...] | 2014 | Encounter | Center at [facility] [address] | [address] | | | | | [address] | [place], [place] | | | | | for Health and | [address] | | | | | Healing, [address] | [phone] | | | | | [place], [place] | | | | | | [address] | | | | | | [phone] | | | +--------+ + + + [...] [address] | | | | | | [place] | | | | | | [address] | | | | | | [phone] | | | | | | | | +--------+---------+ + + + documented as of this encounter Visit Diagnoses Not on filedocumented in this encounter"
--- OUTSIDE RECORDS SUMMARY | ~2019-12-22 | XMS | Encounter Summary ---
Demographics + + + | Address | [address] | | | [place] [address] | + + + | Home Phone | | + + + | Preferred Language | Unknown | + + + | Marital Status | | + + + | Restoration Affiliation | CAT | + + + | Race | White | + + + | Ethnic Group | Not or | + + + Author + + + | Author | [facility] | + + + | Organization | [facility] | + + + | Address | Unknown | + + + | Phone | Unavailable | + + + Support + + + + + | Name | Relationship | Address | Phone | + + + + + | Roxana Bo | ECON | [address] | | | | | [place] | | | | | [address] | | + + + + + Care Team Providers + +------+ + | Care Record Pressman Name | Role | Phone | + [...] Medication | | 2014 | Encounter | Center at [facility] [address] | [address] | | | | | [address] | [place], [place] | | | | | for Health and | [address] | | | | | Healing, [address] | [phone] | | | | | [place], [place] | | | | | | [address] | | | | | | [phone] | | | +--------+ + + + [...] [address] | | | | | | [place] | | | | | | [address] | | | | | | [phone] | | | | | | | | +--------+---------+ + + + documented as of this encounter Visit Diagnoses Not on filedocumented in this encounter"
--- OUTSIDE RECORDS SUMMARY | ~2019-12-22 | XMS | Encounter Summary ---
Demographics + + + | Address | [address] | | | [place] [address] | + + + | Home Phone [...] + | Roxana Bo | ECON | [address] | | | | | [place] | | | | | [address] | | + + + + + Care Team Providers + +------+ + | Care Basket Machine Operator Name | Role | Phone | + +------+ + | Ventura Carrasquillo MD | PCP | | + +------+ + Reason for Visit + + + | Reason | Comments | + + + | Blood Test Results | Outside labs from [facility] 09/01/2019. | + + + Encounter Details +--------+ + + + + | Date | Type | Department | Care Team | Description | +--------+ + + + + | 09/06/ | Clutch Assembler | Digestive Health | Lake Dennis MD | | | 2020 | | Center at [facility] [address] | [address] | | | | | [address] | [place], [place] | | | | | for Health and | [address] | | | | | [facility], [facility] 2 | [phone] | | | | | [place], [place] | | | | | | [address] | | | | | | [phone] | | | +--------+ + + + [...] Rogers | | | | | | [place], [place] | | | | | | [address] | | | | | | [phone] | | | | | | | | +--------+---------+ + + + documented as of this encounter Procedures + +--------+ + + + | Procedure Name | Priori | Date/Time | Associated Diagnosis | Comments | | | ty | | | | + +--------+ + + + | CBC, WITH | Routin | 09/01/2019 | | Results for this | | DIFFERENTIAL | e | 10:48 AM | | procedure are in the | | | | PDT | | results section. | + +--------+ + + + | COMPLETE METABOLIC | Routin | 09/01/2019 | | Results for this | | SET | e | 10:48 AM | | procedure are in the | | (NA,K,CL,CO2,BUN,CRE | | PDT | | results section. | | AT,GLUC,CA,AST,ALT,B | | | | | | JONH TOTAL,ALK | | | | | | PHOS,ALB,PROT TOTAL) | | | | | + +--------+ + + + documented in this encounter Results COMPLETE METABOLIC SET (NA,K,CL,CO2,BUN,CREAT,GLUC,CA,AST,ALT,BILI TOTAL,ALK PHOS,ALB,PROT TOTAL) (09/01/2019 10:48 AM PDT) + +---------+ + + + | Component | Value | Ref Range | Performed | Pathologist | | | | | At | Signature | + +---------+ + + + | GLUCOSE, | 143 | mg/dL | [facility] | | | PLASMA | | | LAB - | | | (LAB) | | | [place] | | + +---------+ + + + | BUN, PLASMA | 84 | mg/dL | [facility] | | | (LAB) | | | LAB - | | | | | | [place] | | + +---------+ + + + | CREATININE | 0.82 | mg/dL | [facility] | | | [...] + + + | ALK PHOS | 189 (H) | U/L | [facility] | | [...] | SODIUM, | 143 | mmol/L | [facility] | | | [...] - | [address] | [place], [place] | [phone] | | [place] | | | | + + + + + CBC, WITH DIFFERENTIAL (09/01/2019 10:48 AM PDT) + +---------+ + + + [...] +---------+ + + + | HEMOGLOBIN | 14 | g/dL | [facility] | | | | | | LAB - | | | | | | [place] | | + +---------+ + + + | HEMATOCRIT | 42 | % | [facility] | | | | | | LAB - | | | | | | [place] | | + +---------+ + + + | PLATELET | 321 | K/cu mm | [facility] | | [...] + + | [facility] - | [address] | [place] | [phone] | | [place] | | | | + + + + + documented in this encounter Visit Diagnoses Not on filedocumented in this encounter"
--- OUTSIDE RECORDS SUMMARY | ~2019-12-22 | XMS | Encounter Summary ---
Demographics + + + | Address | [address] | | | [place] [address] | + + + | Home Phone [...] + | Roxana Bo | ECON | [address] | | | | | [place] | | | | | [address] | | + + + + + Care Team Providers + +------+ + | Care Director Nicu Name | Role | Phone | + [...] Rd | | | | | | [place], [place] | | | | | | [address] | | | +--------+ + + + [...] | 01/26/ | Office | Hepatology | Sonny, Lake, MD | | | 2020 | Visit | | [address] | | | | | | [place], [place] | | | | | | [address] | | | | | | [phone] | | | | | | | [...]
--- OUTSIDE RECORDS SUMMARY | ~2019-12-22 | XMS | Encounter Summary ---
Demographics + + + | Address | [address] | | | [place] [address] | + + + | Home Phone [...] + | Roxana Bo | ECON | [address] | | | | | [place] | | | | | [address] | | + + + + + Care Team Providers + +------+ + | Care Fire Loss Prevention Engineer Name | Role | Phone | [...] | 2008 | scribed | Center at [facility] [address] | [address] | | | | | [address] | [place], [place] | | | | | for Health and | [address] | | | | | [facility], Building 2 | [phone] | | | | | [place], [place] | | | | | | [address] | | | | | | [phone] | | | +--------+ + + + [...] Dennis MD - 02/15/2009 9:58 AM PDT [id number] 02/14/2009 [id number] RACHEAL Galarza855 [facility] [address] [place] [address] or February 14, 2009 Ventura Carrasquillo M.D. [facility] [address] [place] [address] RE: DALIA BO MR #: [id number] Dear Ventura: I had the pleasure of [...] Sincerely, Lake Dennis M.D. YUNI / HS [id number] / [id number] / [id number] / documented in this encou nter Plan of Treatment +--------+---------+ + + + | Date | Type | Specialty | Care Team | Description | +--------+---------+ + + + | 01/26/ | Office | Hepatology | Lake Dennis MD | | | 2020 | Visit | | [address] | | | | | | [place], [place] | | | | | | [address] | | | | | | [phone] | | | | | | | | +--------+---------+ + + + documented as of this encounter Visit Diagnoses Not on filedocumented in this encounter"
--- OUTSIDE RECORDS SUMMARY | ~2019-12-22 | XMS | Encounter Summary ---
Demographics + + + | Address | [address] | | | [place] [address] | + + + | Home Phone | | + + + | Preferred Language | Unknown | + + + | Marital Status | Unknown | + + + | Denominational Affiliation | Unknown | + + + | Race | Unknown | + + + | Ethnic Group | Unknown | + + + Author + + + | Author | [facility] | | | and [place] | + + + | Organization | [facility] | | | and [place] | + + + | Address | Unknown | + + + | Phone | Unavailable | + + + Care Team Providers + +------+ + | Care Double Ending Machine Operator Name | Role | Phone | + +------+ + PCP | Unavailable | + +------+ + Encounter Details +--------+ + + + + | Date | Type | Department | Care Team | Description | +--------+ + + + + | 01/21/ | Hospital | [facility] | | | | 1990 | Encounter | MED CTR XRAY [address] | | | | | | [address] | | | | | | [place] [address] | | | | | | [phone] | | | +--------+ + + + [...]
--- OUTSIDE RECORDS SUMMARY | ~2019-12-22 | XMS | Encounter Summary ---
Demographics + + + | Address | [address] | | | [place] [address] | + + + | Home Phone [...] + | Roxana Bo | ECON | [address] | | | | | [place] | | | | | [address] | | + + + + + Care Team Providers + +------+ + | Care Animal Shelter Supervisor Name | Role | Phone | [...] | | 2017 | | Center at [facility] [address] | [address] | | | | | [address] | [place], [place] | | | | | for Health and | [address] | | | | | [facility] 2 | [phone] | | | | | [place], [place] | | | | | | [address] | | | | | | [phone] | | | +--------+ + + + [...] - 05/06/2016 9:17 AM PST[facility] [place] [address] [place] [address] #[id number] signed by Umesh Horowitz MA at 07/09/2016 [...] [address] | | | | | | [place], [place] | | | | | | [address] | | | | | | [phone] | | | | | | | [...] | | | [place] | 120 | [address] | | + + + + + [...] | | | [place] | 120 | [address] | | + + + + + documented in this encounter Visit Diagnoses Not on filedocumented in this encounter"
--- OUTSIDE RECORDS SUMMARY | ~2019-12-22 | XMS | Encounter Summary ---
Demographics + + + | Address | [address] | | | [place] [address] | + + + | Home Phone [...] + | Roxana Bo | ECON | [address] | | | | | [place] | | | | | [address] | | + + + + + Care Team Providers + +------+ + | Care International Account Executive Name | Role | Phone | + [...] | | 2010 | | Center at [facility] [address] | [address] | ([place] and William) | | | | [address] | [place], [place] | | | | | for Health and | [address] | | | | | [facility] 2 | [phone] | | | | | [place], [place] | | | | | | [address] | | | | | | [phone] | | | +--------+ + + + [...] [address] | | | | | | [place], [place] | | | | | | [address] | | | | | | [phone] | | | | | | | | +--------+---------+ + + + documented as of this encounter Visit Diagnoses Not on filedocumented in this encounter"
--- OUTSIDE RECORDS SUMMARY | ~2019-12-22 | XMS | Encounter Summary ---
Demographics + + + | Address | [address] | | | [place] [address] | + + + | Home Phone [...] + | Roxana Bo | ECON | [address] | | | | | [place] | | | | | [address] | | + + + + + Care Team Providers + +------+ + | Care Power Screwdriver Operator Name | Role | Phone | [...] | | 2019 | | Center at [facility] [address] | [address] | | | | | [address] | [place], [place] | | | | | for Health and | [address] | | | | | [facility] 2 | [phone] | | | | | [place], [place] | | | | | | [address] | | | | | | [phone] | | | +--------+--------+ + + + [...] [address] | | | | | | [place], [place] | | | | | | [address] | | | | | | [phone] | | | | | | | | +--------+---------+ + + + documented as of this encounter Visit Diagnoses Not on filedocumented in this encounter"
--- OUTSIDE RECORDS SUMMARY | ~2019-12-22 | XMS | Encounter Summary ---
Demographics + + + | Address | [address] | | | [place] [address] | + + + | Home Phone [...] + | Roxana Bo | ECON | [address] | | | | | [place] | | | | | [address] | | + + + + + Care Team Providers + +------+ + | Care Business Director Name | Role | Phone | [...] | 2011 | on | Center at [facility] [address] | [address] | | | | | [address] | [place], [place] | | | | | for Health and | [address] | | | | | [facility], [facility] 2 | [phone] | | | | | [place], [place] | | | | | | [address] | | | | | | [phone] | | | +--------+ + + + [...] [address] | | | | | | [place], [place] | | | | | | [address] | | | | | | [phone] | | | | | | | [...] | | | [place] | 120 | [address] | | + + + + + [...] | | | [place] | 120 | [address] | | + + + + + [...] | | | [place] | 120 | [address] | | + + + + + documented in this encounter Visit Diagnoses Not on filedocumented in this encounter"
--- OUTSIDE RECORDS SUMMARY | ~2019-12-22 | XMS | Encounter Summary ---
Demographics + + + | Address | [address] | | | [place] [address] | + + + | Home Phone [...] + | Roxana Bo | ECON | [address] | | | | | [place] | | | | | [address] | | + + + + + Care Team Providers + +------+ + | Care Swim Instructor Name | Role | Phone | + +------+ + | Ventura Carrasquillo MD | PCP | | + +------+ + Reason for Visit + + + | Reason | Comments | + + + | Blood Test Results | [facility] 10/02/14 Lab Results (AST, alk, bilirubin, | | | protein, albumin, CBC) | + + + Encounter Details +--------+ + + + + | Date | Type | Department | Care Team | Description | +--------+ + + + + | 10/03/ | Abstract | Digestive Health | Lake Dennis MD | Blood Test Results | | 2014 | | [place] [address] [address] | [address] | ([facility] | | | | [address] | [place], [place] | 10/02/14 Lab Results | | | | for Health and | [address] | (AST, alk, | | | | Healing, Building 2 | [phone] | bilirubin, protein, | | | | [place], [place] | | albumin, CBC)) | | | | [address] | | | | | | [phone] | | | +--------+ + + + [...] [address] | | | | | | [place], [place] | | | | | | [address] | | | | | | [phone] | | | | | | | | +--------+---------+ + + + documented as of this encounter Visit Diagnoses Not on filedocumented in this encounter"
--- OUTSIDE RECORDS SUMMARY | ~2019-12-22 | XMS | Encounter Summary ---
Demographics + + + | Address | [address] | | | [place] [address] | + + + | Home Phone | | + + + | Preferred Language | Unknown | + + + | Marital Status | | + + + | Restorationist Affiliation | CAT | + + + [...] + | Roxana Bo | ECON | [address] | | | | | [place] | | | | | [address] | | + + + + + Care Team Providers + +------+ + | Care Compliance Specialist Name | Role | Phone | [...] Rd | | | | | | [place], [place] | | | | | | [address] | | | +--------+ + + + [...] [address] | | | | | | [place], [place] | | | | | | [address] | | | | | | [phone] | | | | | | | [...]
--- OUTSIDE RECORDS SUMMARY | ~2019-12-22 | XMS | Encounter Summary ---
Demographics + + + | Address | [address] | | | [place] [address] | + + + | Home Phone [...] + | Roxana Bo | ECON | [address] | | | | | [place] | | | | | [address] | | + + + + + Care Team Providers + +------+ + | Care Hotel Yardperson Name | Role | Phone | + +------+ + | Ventura Carrasquillo MD | PCP | | + +------+ + Encounter Details +--------+ + + + + | Date | Type | Department | Care Team | Description | +--------+ + + + + | 01/04/ | Document-Sc | UNKNOWN DEPARTMENT | Unknown . | | | 2013 | anned | [address] | | | | | | [address] | | | | | | [place], [place] | | | | | | [address] | | | +--------+ + + + [...] [address] | | | | | | [place], [place] | | | | | | [address] | | | | | | [phone] | | | | | | | [...]
--- OUTSIDE RECORDS SUMMARY | ~2019-12-22 | XMS | Encounter Summary ---
Demographics + + + | Address | [address] | | | [place] [address] | + + + | Home Phone [...] + | Roxana Bo | ECON | [address] | | | | | [place] | | | | | [address] | | + + + + + Care Team Providers + +------+ + | Care Disaster Response Director Name | Role | Phone | [...] | 2009 | on | Center at [facility] [address] | [address] | (04/03/10 [facility] | | | | [address] | [place], [place] | Lab) | | | | for Health and | [address] | | | | | [place] [address] | [phone] | | | | | [place], [place] | | | | | | [address] | | | | | | [phone] | | | +--------+ + + + [...] [address] | | | | | | [facility] [place] | | | | | | [address] | | | | | | [phone] | | | | | | | | +--------+---------+ + + + documented as of this encounter Visit Diagnoses Not on filedocumented in this encounter"
--- OUTSIDE RECORDS SUMMARY | ~2019-12-22 | XMS | Encounter Summary ---
Demographics + + + | Address | [address] | | | [place] [address] | + + + | Home Phone [...] + | Roxana Bo | ECON | [address] | | | | | [place] | | | | | [address] | | + + + + + Care Team Providers + +------+ + | Care Sand Filler Name | Role | Phone | [...] + + + + | 10/05/ | Outbound Sales Agent | Digestive Health | Lake Dennis MD | Autoimmune hepatitis | | 2015 | | Center at [facility] [address] | [address] | (HCC) (Primary Dx); | | | | [address] | [place], [place] | Primary biliary | | | | for Health and | [address] | cirrhosis (HCC) | | | | [place] [address] | [phone] | | | | | [place], [place] | | | | | | [address] | | | | | | [phone] | | | +--------+ + + + [...] [address] | | | | | | [place], [place] | | | | | | [address] | | | | | | [phone] | | | | | | | | +--------+---------+ + + + documented as of this encounter Visit Diagnoses + + | Diagnosis | + + | Autoimmune hepatitis (HCC) - Primary Autoimmune hepatitis | + + | Primary biliary cirrhosis (HCC) Biliary cirrhosis | + + documented in this encounter"
--- OUTSIDE RECORDS SUMMARY | ~2019-12-22 | XMS | Encounter Summary ---
Demographics + + + | Address | [address] | | | [place] [address] | + + + | Home Phone [...] + | Roxana Bo | ECON | [address] | | | | | [place] | | | | | [address] | | + + + + + Care Team Providers + +------+ + | Care Critical Care Nurse Practitioner Name | Role | Phone | + [...] | Encounter | Center at [facility] [address] | [address] | info | | | | [address] | [place], [place] | | | | | for Health and | [address] | | | | | Healing, Building 2 | [phone] | | | | | [place], [place] | | | | | | [address] | | | | | | [phone] | | | +--------+ + + + [...] [place] | | | | | | [address] | | | | | | [phone] | | | | | | | | +--------+---------+ + + + documented as of this encounter Visit Diagnoses Not on filedocumented in this encounter"
--- OUTSIDE RECORDS SUMMARY | ~2019-12-22 | XMS | Encounter Summary ---
Demographics + + + | Address | [address] | | | [place] [address] | + + + | Home Phone [...] + | Roxana Bo | ECON | [address] | | | | | [place] | | | | | [address] | | + + + + + Care Team Providers + +------+ + | Care Foreign Language Instructor Name | Role | Phone | [...] | 2010 | on | Center at [facility] [address] | [address] | | | | | [address] | [place], [place] | | | | | for Health and | [address] | | | | | [facility], [facility] 2 | [phone] | | | | | [place], [place] | | | | | | [address] | | | | | | [phone] | | | +--------+ + + + [...] [address] | | | | | | [place], [place] | | | | | | [address] | | | | | | [phone] | | | | | | | [...] - | | | | | | [place] | | + +-------+ + + + [...] [address] | [place], [place] | [phone] | | [place] | | | | [...] [address] | [place], [place] | [phone] | | [place] | | | | + + + + + | [facility] - | | [place], [place] | | | [place] | | | | + + + + + documented in this encounter Visit Diagnoses Not on filedocumented in this encounter"
--- OUTSIDE RECORDS SUMMARY | ~2019-12-22 | XMS | Encounter Summary ---
Demographics + + + | Address | [address] | | | [place] [address] | + + + | Home Phone [...] + | Roxana Bo | ECON | [address] | | | | | [place] | | | | | [address] | | + + + + + Care Team Providers + +------+ + | Care Fisher Hoop Net Name | Role | Phone | + [...] + + + + | 02/10/ | Cord Cutter | Digestive Health | Lake Dennis MD | Autoimmune hepatitis | | 2016 | | Center at [facility] [address] | [address] | (HCC) (Primary Dx) | | | | [address] | [place], [place] | | | | | for Health and | [address] | | | | | [facility], [facility] 2 | [phone] | | | | | [place], [place] | | | | | | [address] | | | | | | [phone] | | | +--------+ + + + [...] [address] | | | | | | [place], [place] | | | | | | [address] | | | | | | [phone] | | | | | | | | +--------+---------+ + + + documented as of this encounter Visit Diagnoses + + | Diagnosis | + + | Autoimmune hepatitis (HCC) - Primary Autoimmune hepatitis | + + documented in this encounter"
--- OUTSIDE RECORDS SUMMARY | ~2019-12-22 | XMS | Encounter Summary ---
Demographics + + + | Address | [address] | | | [place] [address] | + + + | Home Phone [...] + | Roxana Bo | ECON | [address] | | | | | [place] | | | | | [address] | | + + + + + Care Team Providers + +------+ + | Care City Assessor Name | Role | Phone | [...] Center at [facility] [address] | [address] | management (Dose | | | | [address] | [place], [place] | adjustment for | | | | for Health and | [address] | [place]) | | | | [facility], [facility] 2 | [phone] | | | | | [place], [place] | | | | | | [address] | | | | | | [phone] | | | +--------+ + + + [...] [address] | | | | | | [place], [place] | | | | | | [address] | | | | | | [phone] | | | | | | | | +--------+---------+ + + + documented as of this encounter Visit Diagnoses Not on filedocumented in this encounter"
--- OUTSIDE RECORDS SUMMARY | ~2019-12-22 | XMS | Encounter Summary ---
Demographics + + + | Address | [address] | | | [place] [address] | + + + | Home Phone [...] + | Roxana Bo | ECON | [address] | | | | | [place] | | | | | [address] | | + + + + + Care Team Providers + +------+ + | Care Occasional Babysitter Name | Role | Phone | + [...] | | | Procedures | FAMILY | [place], [place] | | | | | CONSULT TO | MEDICINE | [address] | | | | | HEPATOLOGY | [address] | Phone: | | | | | liver bx | [address] | [phone] | | | | | | [place], | Fax: | | | | | | [place] [address] | [phone] | | | | | | Phone: | | | | | | | [phone] | | | | | | | Fax: | | | | | | | [phone] | | +--------+ + + + + + Encounter Details +--------+---------+ + + + | Date | Type | Department | Care Team | Description | +--------+---------+ + + + | 09/08/ | Office | Digestive Health | Lake Dennis MD | Autoimmune hepatitis | | 2009 | Visit | Center at [facility] [address] | [address] | (HCC); Primary | | | | [address] | [place], [place] | biliary cirrhosis | | | | for Health and | [address] | (HCC) | | | | [place] [address] | [phone] | | | | | [place], [place] | | | | | | [address] | | | | | | [phone] | | | +--------+---------+ + + + [...] her LFTs are essentially normal. Plan: -outside account service associate or PCP to check Vit A and [...] and associat ed toxicities.. MARCELLE MCGHEE MD [email or web address] 01/09/2010 3:34 PM PDTExternal standing lab orders [...] Rogers | | | | | | [place], [place] | | | | | | [address] | | | | | | [phone] | | | | | | | [...] - | [address] | [place], [place] | [phone] | | [place] | | | | [...] [address] | [place], [place] | [phone] | | [place] | | | | + + + + + | [facility] - | | [place], [place] | | | [place] | | [...] [address] | [place], [place] | [phone] | | [place] | | | | + + + + + | [facility] - | | [place] | | | [place] | | [...] | + + | Maurice Faculty - 01/09/2010 3:33 PM PDT | [...]
--- OUTSIDE RECORDS SUMMARY | ~2019-12-22 | XMS | Encounter Summary ---
Demographics + + + | Address | [address] | | | [place] [address] | + + + | Home Phone [...] + | Roxana Bo | ECON | [address] | | | | | [place] | | | | | [address] | | + + + + + Care Team Providers + +------+ + | Care Electrical Research Engineer Name | Role | Phone | [...] Refill Request | | 2010 | | Center at [facility] [address] | [address] | (ursodiol) | | | | [address] | [place], [place] | | | | | for Health and | [address] | | | | | [place] [address] | [phone] | | | | | [place], [place] | | | | | | [address] | | | | | | [phone] | | | +--------+--------+ + + + [...] [address] | | | | | | [place], [place] | | | | | | [address] | | | | | | [phone] | | | | | | | | +--------+---------+ + + + documented as of this encounter Visit Diagnoses Not on filedocumented in this encounter"
--- OUTSIDE RECORDS SUMMARY | ~2019-12-22 | XMS | Encounter Summary ---
Demographics + + + | Address | [address] | | | [place] [address] | + + + | Home Phone [...] + | Roxana oB | ECON | [address] | | | | | [place] | | | | | [address] | | + + + + + Care Team Providers + +------+ + | Care Taxi Proprietor Name | Role | Phone | + [...] + + + + | 05/29/ | Telephone | Digestive Health | Lake Dennis MD | Medication | | 2010 | | Center at [facility] [address] | [address] | management | | | | [address] | [place], [place] | | | | | [facility] Health and | [address] | | | | | [facility], [facility] 2 | [phone] | | | | | [place], [place] | | | | | | [address] | | | | | | [phone] | | | +--------+ + + + [...] | | | | | | [place] | | | | | | [address] | | | | | | [phone] | | | | | | | | +--------+---------+ + + + documented as of this encounter Visit Diagnoses Not on filedocumented in this encounter"
--- OUTSIDE RECORDS SUMMARY | ~2019-12-22 | XMS | Encounter Summary ---
Demographics + + + | Address | [address] | | | [place] [address] | + + + | Home Phone [...] + | Roxana Bo | ECON | [address] | | | | | [place] | | | | | [address] | | + + + + + Care Team Providers + +------+ + | Care Retail Marketing Manager Name | Role | Phone | [...] + + + + | 01/05/ | Abstract | Digestive Health | Lake Dennis MD | Medical Records | | 2019 | | Center at [facility] [address] | [address] | Review | | | | [address] | [place], [place] | | | | | for Health and | [address] | | | | | [place] [address] | [phone] | | | | | [place], [place] | | | | | | [address] | | | | | | [phone] | | | +--------+ + + + [...] Rogers | | | | | | [place], [place] | | | | | | [address] | | | | | | [phone] | | | | | | | | +--------+---------+ + + + documented as of this encounter Visit Diagnoses Not on filedocumented in this encounter"
--- OUTSIDE RECORDS SUMMARY | ~2019-12-22 | XMS | Encounter Summary ---
Demographics + + + | Address | [address] | | | [place] [address] | + + + | Home Phone [...] + | Roxana Bo | ECON | [address] | | | | | [place] | | | | | [address] | | + + + + + Care Team Providers + +------+ + | Care Acid Wash Operator Name | Role | Phone | [...] | 2014 | Encounter | Center at [facility] [address] | [address] | Inquiry | | | | [address] | [facility] [place] | | | | | for Health and | [address] | | | | | Healing, Building 2 | [phone] | | | | | [place], [place] | | | | | | [address] | | | | | | [phone] | | | +--------+ + + + [...] Rogers | | | | | | [place] | | | | | | [address] | | | | | | [phone] | | | | | | | | +--------+---------+ + + + documented as of this encounter Visit Diagnoses Not on filedocumented in this encounter"
--- OUTSIDE RECORDS SUMMARY | ~2019-12-22 | XMS | Encounter Summary ---
Demographics + + + | Address | [address] | | | [place] [address] | + + + | Home Phone | | + + + | Preferred Language | Unknown | + + + | Marital Status | | + + + | Rastafarian Affiliation | CAT | + + + [...] + | Roxana Bo | ECON | [address] | | | | | [place] | | | | | [address] | | + + + + + Care Team Providers + +------+ + | Care Umbrella Tipper Machine Name | Role | Phone | + [...] | | [address] | [place], [place] | | | | | for Health and | [address] | | | | | [facility] 2 | [phone] | | | | | [place], [place] | | | | | | [address] | | | | | | [phone] | | | +--------+ + + + [...] | | | | | | [place], [place] | | | | | | [address] | | | | | | [phone] | | | | | | | [...] [address] | [place] | [phone] | | [place] | | | | [...] [address] | [place], [place] | [phone] | | [place] | | | | + + + + + documented in this encounter Visit Diagnoses Not on filedocumented in this encounter"
--- OUTSIDE RECORDS SUMMARY | ~2019-12-22 | XMS | Encounter Summary ---
Demographics + + + | Address | [address] | | | [place] [address] | + + + | Home Phone [...] + | Roxana Bo | ECON | [address] | | | | | [place] | | | | | [address] | | + + + + + Care Team Providers + +------+ + | Care Boring Mill Set Up Operator Vertical Name | Role | Phone | + [...] | | 2010 | | Center at [facility] [address]85 | [address] | management | | | | [address] | [place], [place] | | | | | [facility] Health and | [address] | | | | | [facility], [facility] 2 | [phone] | | | | | [place], [place] | | | | | | [address] | | | | | | [phone] | | | +--------+ + + + [...] Rogers | | | | | | [place] | | | | | | [address] | | | | | | [phone] | | | | | | | | +--------+---------+ + + + documented as of this encounter Visit Diagnoses Not on filedocumented in this encounter"
--- OUTSIDE RECORDS SUMMARY | ~2019-12-22 | XMS | Encounter Summary ---
Demographics + + + | Address | [address] | | | [place] [address] | + + + | Home Phone [...] + | Roxana Bo | ECON | [address] | | | | | [place] | | | | | [address] | | + + + + + Care Team Providers + +------+ + | Care Outside Machinist Apprentice Name | Role | Phone | [...] | 2014 | Encounter | Center at [facility] [address] | [address] | | | | | [address] | [place], [place] | | | | | for Health and | [address] | | | | | Healing, Building 2 | [phone] | | | | | [place], [place] | | | | | | [address] | | | | | | [phone] | | | +--------+ + + + [...] Rogers | | | | | | [place] | | | | | | [address] | | | | | | [phone] | | | | | | | | +--------+---------+ + + + documented as of this encounter Visit Diagnoses Not on filedocumented in this encounter"
--- OUTSIDE RECORDS SUMMARY | ~2019-12-22 | XMS | Encounter Summary ---
Demographics + + + | Address | [address] | | | [place] [address] | + + + | Home Phone [...] + | Roxana Bo | ECON | [address] | | | | | [place] | | | | | [address] | | + + + + + Care Team Providers + +------+ + | Care Specialty Manufacturing Supervisor Name | Role | Phone | [...] | | [address] | [place], [place] | | | | | for Health and | [address] | | | | | Healing, Building 2 | [phone] | | | | | [facility] [place] | | | | | | [address] | | | | | | [phone] | | | +--------+ + + + [...] [place] | | | | | | [address] | | | | | | [phone] | | | | | | | | +--------+---------+ + + + documented as of this encounter Visit Diagnoses Not on filedocumented in this encounter"
--- OUTSIDE RECORDS SUMMARY | ~2019-12-22 | XMS | Encounter Summary ---
Demographics + + + | Address | [address] | | | [place] [address] | + + + | Home Phone [...] + | Roxana Bo | ECON | [address] | | | | | [place] | | | | | [address] | | + + + + + Care Team Providers + +------+ + | Care Mold Insert Changer Name | Role | Phone | + [...] | 2017 | on | Center at [facility] [address] | [address] | | | | | [address] | [place], [place] | | | | | for Health and | [address] | | | | | [facility] 2 | [phone] | | | | | [place], [place] | | | | | | [address] | | | | | | [phone] | | | +--------+ + + + [...] Rogers | | | | | | [place], [place] | | | | | | [address] | | | | | | [phone] | | | | | | | [...] [address] | [place], [place] | [phone] | | [place] | | | | [...] + + | [facility] - | [address] | [place] | [phone] | | [place] | | | | + + + + + documented in this encounter Visit Diagnoses Not on filedocumented in this encounter"
--- OUTSIDE RECORDS SUMMARY | ~2019-12-22 | XMS | Encounter Summary ---
Demographics + + + | Address | [address] | | | [place] [address] | + + + | Home Phone [...] + | Roxana Bo | ECON | [address] | | | | | [place] | | | | | [address] | | + + + + + Care Team Providers + +------+ + | Care Machine Hostler Name | Role | Phone | + [...] | | 2016 | | Center at [facility] [address]85 | [address] | | | | | [address] | [place], [place] | | | | | [facility] and | [address] | | | | | [facility], [facility] 2 | [phone] | | | | | [place], [place] | | | | | | [address] | | | | | | [phone] | | | +--------+ + + + [...] Rogers | | | | | | [place] | | | | | | [address] | | | | | | [phone] | | | | | | | | +--------+---------+ + + + documented as of this encounter Visit Diagnoses Not on filedocumented in this encounter"
--- OUTSIDE RECORDS SUMMARY | ~2019-12-22 | XMS | Encounter Summary ---
Demographics + + + | Address | [address] | | | [place] [address] | + + + | Home Phone [...] + | Roxana Bo | ECON | [address] | | | | | [place] | | | | | [address] | | + + + + + Care Team Providers + +------+ + | Care Hot Blast Worker Name | Role | Phone | [...] | 2013 | on | Center at [facility] [address] | [address] | (Out side labs from | | | | [address] | [place], [place] | [facility]. | | | | for Health and | [address] | 04/03/14.) | | | | Healing, Building 2 | [phone] | | | | | [place], [place] | | | | | | [address] | | | | | | [phone] | | | +--------+ + + + [...] | | 2019 | Visit | | [address] | | | | | | [place], [place] | | | | | | [address] | | | | | | [phone] | | | | | | | [...] [address] | [place], [place] | [phone] | | [place] | | | | [...] + + | [facility] - | [address] | [place] | [phone] | | [place] | | | | + + + + + documented in this encounter Visit Diagnoses Not on filedocumented in this encounter"
--- OUTSIDE RECORDS SUMMARY | ~2019-12-22 | XMS | Encounter Summary ---
Demographics + + + | Address | [address] | | | [place] [address] | + + + | Home Phone [...] + + + | Author | [facility] | + + + | Organization | [facility] | + + + | Address | Unknown | + + + | Phone | Unavailable | + + + Support + + + + + | Name | Relationship | Address | Phone | + + + + + | Roxana Bo | ECON | [address] | | | | | [place] | | | | | [address] | | + + + + + Care Team Providers + +------+ + | Care Custom Frame Assembler Name | Role | Phone | [...] | | 2012 | | Center at [facility] [address] | [address] | Medication | | | | [address] | [place], [place] | management ([facility]) | | | | for Health and | [address] | | | | | [facility] 2 | [phone] | | | | | [place], [place] | | | | | | [address] | | | | | | [phone] | | | +--------+ + + + [...] Rogers | | | | | | [place], [place] | | | | | | [address] | | | | | | [phone] | | | | | | | | +--------+---------+ + + + documented as of this encounter Visit Diagnoses Not on filedocumented in this encounter"
--- OUTSIDE RECORDS SUMMARY | ~2019-12-22 | XMS | Encounter Summary ---
Demographics + + + | Address | [address] | | | [place] [address] | + + + | Home Phone [...] + | Roxana Bo | ECON | [address] | | | | | [place] | | | | | [address] | | + + + + + Care Team Providers + +------+ + | Care Requisition Approver Name | Role | Phone | + +------+ + | Ventura Carrasquillo MD | PCP | | + +------+ + Encounter Details +--------+ + + + + | Date | Type | Department | Care Team | Description | +--------+ + + + + | 02/19/ | Criminal Investigator Customs | Digestive Health | Lake Dennis MD | Nonspecific Abnormal | | 2008 | | Center at [facility] [address]85 | [address] | Results of Liver | | | | [address] | [place], [place] | Function Study | | | | for Health and | [address] | (Primary Dx) | | | | Healing, Building 2 | [phone] | | | | | [place], [place] | | | | | | [address] | | | | | | [phone] | | | +--------+ + + + [...] Rogers | | | | | | [place], [place] | | | | | | [address] | | | | | | [phone] | | | | | | | | +--------+---------+ + + + + +------+--------+ + + | Name | Type | Priori | Associated Diagnoses | Order Schedule | | | | ty | | | + +------+--------+ + + | ANTI MITOCHONDRIAL | Lab | Routin | Nonspecific | Ordered: 02/19/2009 | | AB, SERUM | | e | Abnormal Results of | | | | | | Liver Function Study | | + +------+--------+ + + documented as of this encounter Visit Diagnoses + + | Diagnosis | + + | Nonspecific abnormal results of liver function study - Primary | + + documented in this encounter"
--- OUTSIDE RECORDS SUMMARY | ~2019-12-22 | XMS | Encounter Summary ---
Demographics + + + | Address | [address] | | | [place] [address] | + + + | Home Phone [...] + | Roxana Bo | ECON | [address] | | | | | [place] | | | | | [address] | | + + + + + Care Team Providers + +------+ + | Care Drilling Assistant Name | Role | Phone | [...] | | [address] | [place], [place] | | | | | for Health and | [address] | | | | | Healing, Building 2 | [phone] | | | | | [place], [place] | | | | | | [address] | | | | | | [phone] | | | +--------+ + + + [...] Rogers | | | | | | [place], [place] | | | | | | [address] | | | | | | [phone] | | | | | | | | +--------+---------+ + + + documented as of this encounter Visit Diagnoses Not on filedocumented in this encounter"
--- OUTSIDE RECORDS SUMMARY | ~2019-12-22 | XMS | Encounter Summary ---
Demographics + + + | Address | [address] | | | [place] [address] | + + + | Home Phone [...] + | Roxana Bo | ECON | [address] | | | | | [place] | | | | | [address] | | + + + + + Care Team Providers + +------+ + | Care Beveling Machine Operator Name | Role | Phone | + +------+ + | Ventura Carrasquillo MD | PCP | | + +------+ + Reason for Visit + + + | Reason | Comments | + + + | Blood Test Results | [facility] 01/02/15 Lab Results (AST, alk phos, bili, | | | protein, albumin, bili, ALT, CBC) | + + + Encounter Details +--------+ + + + + | Date | Type | Department | Care Team | Description | +--------+ + + + + | 01/03/ | Abstract | Digestive Health | Lake Dennis MD | Blood Test Results | | 2014 | | Center at [facility] [address]85 | [address] | ([facility] | | | | [address] | [place], [place] | 01/02/15 Lab Results | | | | for Health and | [address] | (AST, alk phos, | | | | Healing, Building 2 | [phone] | bili, protein, | | | | [place], [place] | | albumin, bili, ALT, | | | | [address] | | CBC)) | | | | [phone] | | | +--------+ + + + [...] Rogers | | | | | | [place], [place] | | | | | | [address] | | | | | | [phone] | | | | | | | | +--------+---------+ + + + documented as of this encounter Visit Diagnoses Not on filedocumented in this encounter"
--- OUTSIDE RECORDS SUMMARY | ~2019-12-22 | XMS | Encounter Summary ---
Demographics + + + | Address | [address] | | | [place] [address] | + + + | Home Phone | | + + + | Preferred Language | Unknown | + + + | Marital Status | | + + + | Christianity Affiliation | CAT | + + + [...] + | Roxana Bo | ECON | [address] | | | | | [place] | | | | | [address] | | + + + + + Care Team Providers + +------+ + | Care Smelting Engineer Name | Role | Phone | + +------+ + | Ventura Carrasquillo MD | PCP | | + +------+ + Encounter Details +--------+ + + + + | Date | Type | Department | Care Team | Description | +--------+ + + + + | 01/25/ | Telephone | Digestive Health | Lake Dennis MD | | | 2018 | | [place] [address] [address] | [address] | | | | | [address] | [facility] [place] | | | | | for Health and | [address] | | | | | [facility] [place], Building 2 | [phone] | | | | | [place], [place] | | | | | | [address] | | | | | | [phone] | | | +--------+ + + + [...] Rogers | | | | | | [place], [place] | | | | | | [address] | | | | | | [phone] | | | | | | | | +--------+---------+ + + + documented as of this encounter Visit Diagnoses + + | Diagnosis | + + | Autoimmune hepatitis (HCC) - Primary Autoimmune hepatitis | + + | Primary biliary cholangitis (HCC) | + + documented in this encounter"
--- OUTSIDE RECORDS SUMMARY | ~2019-12-22 | XMS | Encounter Summary ---
Demographics + + + | Address | [address] | | | [place] [address] | + + + | Home Phone [...] + | Roxana Bo | ECON | [address] | | | | | [place] | | | | | [address] | | + + + + + Care Team Providers + +------+ + | Care Public Relations Name | Role | Phone | + +------+ + | Ventura Carrasquillo MD | PCP | | + +------+ + Reason for Visit + + + | Reason | Comments | + + + | Refill Request | Ursodiol and Azathioprine | + + + Encounter Details +--------+--------+ + + + | Date | Type | Department | Care Team | Description | +--------+--------+ + + + | 03/08/ | Refill | Digestive Health | Lake Dennis MD | Refill Request | | 2018 | | Center at [facility] [address] | [address] | (Ursodiol and | | | | [address] | [place], [place] | Azathioprine) | | | | for Health and | [address] | | | | | [facility], [facility] 2 | [phone] | | | | | [place], [place] | | | | | | [address] | | | | | | [phone] | | | +--------+--------+ + + + [...] Rogers | | | | | | [place], [place] | | | | | | [address] | | | | | | [phone] | | | | | | | | +--------+---------+ + + + documented as of this encounter Visit Diagnoses Not on filedocumented in this encounter"
--- OUTSIDE RECORDS SUMMARY | ~2019-12-22 | XMS | Encounter Summary ---
Demographics + + + | Address | [address] | | | [place] [address] | + + + | Home Phone [...] + | Roxana Bo | ECON | [address] | | | | | [place] | | | | | [address] | | + + + + + Care Team Providers + +------+ + | Care Management Analyst Name | Role | Phone | + +------+ + | Ventura Carrasquillo MD | PCP | | + +------+ + Encounter Details +--------+ + + + + | Date | Type | Department | Care Team | Description | +--------+ + + + + | 04/26/ | Abstract | Digestive Health | Lake Dennis MD | | | 2011 | | [place] [address] [address] | [address] | | | | | [address] | [facility] [place] | | | | | for Health and | [address] | | | | | [facility], Building 2 | [phone] | | | | | [place], [place] | | | | | | [address] | | | | | | [phone] | | | +--------+ + + + [...] Rogers | | | | | | [place] | | | | | | [address] | | | | | | [phone] | | | | | | | | +--------+---------+ + + + documented as of this encounter Visit Diagnoses Not on filedocumented in this encounter"
--- OUTSIDE RECORDS SUMMARY | ~2019-12-22 | XMS | Encounter Summary ---
Demographics + + + | Address | [address] | | | [place] [address] | + + + | Home Phone | | + + + | Preferred Language | Unknown | + + + | Marital Status | | + + + | Buddhist Affiliation | CAT | + + + [...] + | Roxana Bo | ECON | [address] | | | | | [place] | | | | | [address] | | + + + + + Care Team Providers + +------+ + | Care Clockmaker Name | Role | Phone | + +------+ + | Ventura Carrasquillo MD | PCP | | + +------+ + Reason for Visit + + + | Reason | Comments | + + + | Blood Test Results | 07/02/2010 | + + + Encounter Details +--------+ + + + + | Date | Type | Department | Care Team | Description | +--------+ + + + + | 07/11/ | Documentati | Digestive Health | Lake Dennis MD | Blood Test Results | | 2010 | on | Center at [facility] [address] | [address] | (07/02/2010) | | | | [address] | [place], [place] | | | | | for Health and | [address] | | | | | [facility], [facility] 2 | [phone] | | | | | [place], [place] | | | | | | [address] | | | | | | [phone] | | | +--------+ + + + [...] Rogers | | | | | | [place], [place] | | | | | | [address] | | | | | | [phone] | | | | | | | | +--------+---------+ + + + documented as of this encounter Visit Diagnoses Not on filedocumented in this encounter"
--- OUTSIDE RECORDS SUMMARY | ~2019-12-22 | XMS | Encounter Summary ---
Demographics + + + | Address | [address] | | | [place] [address] | + + + | Home Phone [...] + | Roxana Bo | ECON | [address] | | | | | [place] | | | | | [address] | | + + + + + Care Team Providers + +------+ + | Care Surgical Orderly Name | Role | Phone | + [...] | 2011 | on | Center at [facility] [address] | [address] | (10/07/2011) | | | | [address] | [place], [place] | | | | | for Health and | [address] | | | | | [facility], [facility] 2 | [phone] | | | | | [place], [place] | | | | | | [address] | | | | | | [phone] | | | +--------+ + + + [...] Rogers | | | | | | [place], [place] | | | | | | [address] | | | | | | [phone] | | | | | | | [...] | [address] | [place], [place] | | | [place] | [address] | [address] | | + + + + + [...] | | | [place] | 120 | [address] | | + + + + + [...] | | | [place] | 120 | [address] | | + + + + + documented in this encounter Visit Diagnoses Not on filedocumented in this encounter"
--- OUTSIDE RECORDS SUMMARY | ~2019-12-22 | XMS | Encounter Summary ---
Demographics + + + | Address | [address] | | | [place] [address] | + + + | Home Phone | | + + + | Preferred Language | Unknown | + + + | Marital Status | | + + + | Muslim Affiliation | CAT | + + + [...] + | Roxana Bo | ECON | [address] | | | | | [place] | | | | | [address] | | + + + + + Care Team Providers + +------+ + | Care Charge Preparation Technician Name | Role | Phone | [...] | | | | | REFERRING | [place], [place] | | | | | | PROVIDER PER | [address] | | | | | | PT | Phone: | | | | | | | [phone] | | | | | | | Fax: | | | | | | | [phone] | +--------+--------+ + + + + Encounter Details +--------+---------+ + + + | Date | Type | Department | Care Team | Description | +--------+---------+ + + + | 02/10/ | Office | Digestive Health | Lake Dennsi MD | Autoimmune hepatitis | | 2016 | Visit | Center at [facility] [address] | [address] | (HCC) (Primary Dx); | | | | [address] | [place], [place] | Primary biliary | | | | for Health and | [address] | cirrhosis (HCC) | | | | Healing, Building 2 | [phone] | | | | | [place], [place] | | | | | | [address] | | | | | | [phone] | | | +--------+---------+ + + + [...] unit oral tablet Take 1,000 Units by [facility] once daily. dzqcfgerdppw-ebljuar-vbjuqrq-folic acid chewable 200-0.4 mg Oral Tablet, Chewable Take 2 Tabs by mouth once daily. fxohliicnovq-nfqyvas-gjjs-lutein (CENTRUM SILVER ULTRA WOMEN'S) Oral Tablet Take 1 Tab by mouth once daily. Wyano-3 Fatty Acids-Vitamin E (FISH OIL) 1,000 mg [...] disease. Plan 1) cont current meds 2) x9xkwqdh liver set, CBC 3) RTC in 1 [...] Rogers | | | | | | [place], [place] | | | | | | [address] | | | | | | [phone] | | | | | | | | +--------+---------+ + + + documented as of this encounter Visit Diagnoses + + | Diagnosis | + + | Autoimmune hepatitis (HCC) - Primary Autoimmune hepatitis | + + | Primary biliary cirrhosis (HCC) Biliary cirrhosis | + + documented in this encounter
--- OUTSIDE RECORDS SUMMARY | ~2019-12-22 | XMS | Encounter Summary ---
Demographics + + + | Address | [address] | | | [place] [address] | + + + | Home Phone [...] + | Roxana Bo | ECON | [address] | | | | | [place] | | | | | [address] | | + + + + + Care Team Providers + +------+ + | Care Postpartum Nurse Name | Role | Phone | + +------+ + | No Pcp Per Patient | PCP | Unavailable | + +------+ + Reason for Visit + + + | Reason | Comments | + + + | Follow-up visit | | + + + Benefits Check (Routine) +--------+--------+ + + + + | Status | Reason | Specialty | Diagnoses / | Referred By | Referred To | | | | | Procedures | Contact | Contact | +--------+--------+ + + + + | Closed | | Hepatology | | Non-[facility] | [place], | | | | | | Epic Dept | [place], MD | | | | | | | [address] | | | | | [address] | | | | | | | [place], [place] | | | | | | | [address] | | | | | | | Phone: | | | | | | | [phone] | | | | | | | Fax: | | | | | | | [phone] | +--------+--------+ + + + + Encounter Details +--------+---------+ + + + | Date | Type | Department | Care Team | Description | +--------+---------+ + + + | 02/05/ | Office | Digestive Health | Lake Dennis MD | Autoimmune hepatitis | | 2015 | Visit | Center at [facility] [address] | [address] | (HCC) (Primary Dx); | | | | [address] | [facility] [place] | Primary biliary | | | | for Health and | [address] | cirrhosis (HCC) | | | | [facility], [address] | [phone] | | | | | [facility] [place] | | | | | | [address] | | | | | | [phone] | | | +--------+---------+ + + + [...] + + + | Blood Pressure | 149/89 | 02/05/2015 12:39 PM | | | | | PDT | | + + + + + | Pulse | 64 | 02/05/2015 12:39 PM | | | | | PDT | | + + + + + | Temperature | 36.7 C (98 F) | 02/05/2015 12:39 PM | | | | | PDT | | + + + + + | Respiratory Rate | 16 | 02/05/2015 12:39 PM | | | | | PDT | | + + + + + | Oxygen Saturation | 98% | 02/05/2015 12:39 PM | | | | | PDT | | + + + + + | Inhaled Oxygen | - | - | | | Concentration | | | | + + + + + | Weight | 80.2 kg (176 lb 11.2 | 02/05/2015 12:39 PM | | | | oz) | PDT | | + + + + + | Height | 160 cm (5' 3") | 02/05/2015 12:39 PM | | | | | PDT | | + + + + + | Body Mass Index | 31.3 | 02/05/2015 12:39 PM | | | | | PDT | | + + + + + documented in this encounter Progress Notes Lake Dennis MD - 02/05/2015 12:41 PM PDTFormatting of this note might be [...] 4 caps by mouth prior to procedure. hutzwjgaqpnq-djxrsxd-vjhrlzu-folic acid chewable 200-0.4 mg Oral Tablet, Chewable Take 2 Tabs by mouth once daily. tszdredwqsdi-mgyfeet-qwpu-lutein (CENTRUM SILVER ULTRA WOMEN'S) Oral Tablet Take 1 Tab by mouth once daily. Rowland-3 Fatty Acids-Vitamin E (FISH OIL) 1,000 mg [...] no Good social support: yes Objective: BP 149/89 | Pulse 64 | Temp (Src) 36.7 C (98 F) (Oral) | RR 16 | Ht 1.6 m (5' 3") | Wt 80.151 kg (176 lb 11.2 oz) | SpO2 98% | BMI 31.31 kg/(m^2) General: Alert, NAD. HEENT: No muscle [...] or spider hemangomota. Laboratory Data: Recent Labs 07/04/14 0939 10/02/14 0845 01/02/15 0855 AST 20 21 22 ALT 11 12 14 TBILI 0.5 0.5 0.6 ALB 3.7 3.6 3.6 WBC 6 5.3 4.1* HB 14.3 14.7 13.7 PLT 359 352 324 Assessment/Plan: Stable from a liver disease standpoint. No evidence of hepatic decompensation. Plan 1) cont current meds 2) z9enmqaw liver set, CBC, plts, diff 3) meds refilled 4) RTC in 1 yr Counseling Time: I spent more than 25 minutes with the patient. Greater than 50% of the t alecia was spent in education and counseling the patient regarding management of medications an d associated toxicities.. Lake Dennis MD documented in this encoun ter Plan of Treatment +--------+---------+ + + + | Date | Type | Specialty | Care Team | Description | +--------+---------+ + + + | 01/26/ | Office | Hepatology | Lake Dennis MD | | | 2019 | Visit | | [address] | | | | | | [place], [place] | | | | | | [address] | | | | | | [phone] | | | | | | | | +--------+---------+ + + + documented as of this encounter Visit Diagnoses + + | Diagnosis | + + | Autoimmune hepatitis (HCC) - Primary Autoimmune hepatitis | + + | Primary biliary cirrhosis (HCC) Biliary cirrhosis | + + documented in this encounter
--- OUTSIDE RECORDS SUMMARY | ~2019-12-22 | XMS | Encounter Summary ---
Demographics + + + | Address | [address] | | | [place] [address] | + + + | Home Phone [...] + | Roxana Bo | ECON | [address] | | | | | [place] | | | | | [address] | | + + + + + Care Team Providers + +------+ + | Care Cable Mechanic Name | Role | Phone | [...] | 2013 | on | Center at [facility] [address] | [address] | (Out side labs from | | | | [address] [facility] | [place], [place] | [facility]. | | | | for Health and | [address] | 10/04/13.) | | | | Healing, [address] | [phone] | | | | | [place], [place] | | | | | | [address] | | | | | | [phone] | | | +--------+ + + + [...] Rogers | | | | | | [place], [place] | | | | | | [address] | | | | | | [phone] | | | | | | | [...] [address] | [place], [place] | [phone] | | [place] | | | | [...] [address] | [place] | [phone] | | [place] | | | | + + + + + documented in this encounter Visit Diagnoses Not on filedocumented in this encounter"
--- OUTSIDE RECORDS SUMMARY | ~2019-12-22 | XMS | Encounter Summary ---
Demographics + + + | Address | [address] | | | [place] [address] | + + + | Home Phone [...] + | Roxana Bo | ECON | [address] | | | | | [place] | | | | | [address] | | + + + + + Care Team Providers + +------+ + | Care Parcel Wrapper Name | Role | Phone | + +------+ + | Ventura Carrasquillo MD | PCP | | + +------+ + Encounter Details +--------+ + + + + | Date | Type | Department | Care Team | Description | +--------+ + + + + | 10/12/ | Abstract | Digestive Health | Lake Dennis MD | | | 2011 | | [place] [address] [address] | [address] | | | | | [address] | [facility] [place] | | | | | for Health and | [address] | | | | | [facility], [address] | [phone] | | | | | [place], [place] | | | | | | [address] | | | | | | [phone] | | | +--------+ + + + [...] Rogers | | | | | | [place] | | | | | | [address] | | | | | | [phone] | | | | | | | | +--------+---------+ + + + documented as of this encounter Visit Diagnoses Not on filedocumented in this encounter"
--- OUTSIDE RECORDS SUMMARY | ~2019-12-22 | XMS | Encounter Summary ---
Demographics + + + | Address | [address] | | | [place] [address] | + + + | Home Phone [...] + | Roxana Bo | ECON | [address] | | | | | [place] | | | | | [address] | | + + + + + Care Team Providers + +------+ + | Care Labor And Employment Paralegal Name | Role | Phone | + [...] | +--------+ + + + + | 02/27/ | Telephone | Digestive Health | Lake Dennis MD | Lab findings, | | 2008 | | Center at [facility] [address] | [address] | teaching, guidance, | | | | [address] | [place], [place] | and counseling | | | | for Health and | [address] | | | | | Healing, [facility] 2 | [phone] | | | | | [place], [place] | | | | | | [address] | | | | | | [phone] | | | +--------+ + + + [...] Rogers | | | | | | [place], [place] | | | | | | [address] | | | | | | [phone] | | | | | | | | +--------+---------+ + + + documented as of this encounter Procedures + +--------+ + + + | Procedure Name | Priori | Date/Time | Associated Diagnosis | Comments | | | ty | | | | + +--------+ + + + | CBC, WITH | Routin | 04/19/2009 | Primary biliary | Results for this | | DIFFERENTIAL | e | | cirrhosis (HCC) | procedure are in the | | | | | Autoimmune hepatitis | results section. | | | | | (HCC) | | + +--------+ + + + | COMPLETE METABOLIC | Routin | 03/22/2009 | Primary biliary | Results for this | | SET | e | 10:20 AM | cirrhosis (HCC) | procedure are in the | | (NA,K,CL,CO2,BUN,CRE | | PST | Autoimmune hepatitis | results section. | | AT,GLUC,CA,AST,ALT,B | | | (HCC) | | | JONH TOTAL,ALK | | | | | | PHOS,ALB,PROT TOTAL) | | | | | + +--------+ + + + documented in this encounter Results CBC, WITH DIFFERENTIAL (04/19/2009) + +--------+ + + + | Component | Value | Ref Range | Performed | Pathologist | | | | | At | Signature | + +--------+ + + + | WHITE CELL | 6.1 | K/cu mm | [facility] | | | COUNT | | | LAB - | | | | | | [place] | | + +--------+ + + + | RED CELL | | M/cu mm | [facility] | | | COUNT | | | LAB - | | | | | | [place] | | + +--------+ + + + | HEMOGLOBIN | 14.2 | g/dL | [facility] | | | | | | LAB - | | | | | | [place] | | + +--------+ + + + | HEMATOCRIT | 46 (H) | % | [facility] | | | | | | LAB - | | | | | | [facility] | | + +--------+ + + + | MCV | | fL | [facility] | | | | | | LAB - | | | | | | [facility] | | + +--------+ + + + | MCH | | pg | [facility] | | | | | | LAB - | | | | | | [facility] | | + +--------+ + + + | MCHC | | g/dL | [facility] | | | | | | LAB - | | | | | | [place] | | + +--------+ + + + | PLATELET | 403 | K/cu mm | [facility] | | | COUNT | | | LAB - | | | | | | [place] | | + +--------+ + + + | NEUTROPHIL | | % | [facility] | | | % | | | LAB - | | | | | | [place] | | + +--------+ + + + | LYMPHOCYTE | | % | [facility] | | | % | | | LAB - | | | | | | [place] | | + +--------+ + + + | MONOCYTE % | | % | [facility] | | | | | | LAB - | | | | | | [place] | | + +--------+ + + + | EOS % | | % | [facility] | | | | | | LAB - | | | | | | [place] | | + +--------+ + + + | BASO % | | % | [facility] | | | | | | LAB - | | | | | | [place] | | + +--------+ + + + | RDW | | % | [facility] | | | | | | LAB - | | | | | | [place] | | + +--------+ + + + | MPV | | fL | [facility] | | | | | | LAB - | | | | | | [place] | | + +--------+ + + + | NEUTROPHIL | | K/cu mm | [facility] | | | # | | | LAB - | | | | | | [place] | | + +--------+ + + + | LYMPHOCYTE | | K/cu mm | [facility] | | | # | | | LAB - | | | | | | [place] | | + +--------+ + + + | MONOCYTE # | | K/cu mm | [facility] | | | | | | LAB - | | | | | | [place] | | + +--------+ + + + | EOS # | | K/cu mm | [facility] | | | | | | LAB - | | | | | | [place] | | + +--------+ + + + | BASO # | | | [facility] | | | | | | LAB - | | | | | | [place] | | + +--------+ + + + + + | Specimen | + + | Blood - Blood | + + + + + + + | Performing | Address | City/State/Zipcode | Phone Number | | Organization | | | | + + + + + | [facility] - | [address] | [place], [place] | [phone] | | [place] | | | | + + + + + | [facility] - | | [place], [place] | | | [place] | | | | + + + + + COMPLETE METABOLIC SET (NA,K,CL,CO2,BUN,CREAT,GLUC,CA,AST,ALT,BILI TOTAL,ALK PHOS,ALB,PROT TOTAL) (03/22/2009 10:20 AM PST) + +---------+ + + + | Component | Value | Ref Range | Performed | Pathologist | | | | | At | Signature | + +---------+ + + + | GLUCOSE, | 87 | mg/dL | [facility] | | | PLASMA | | | LAB - | | | (LAB) | | | [place] | | + +---------+ + + + | BUN, PLASMA | 11 | mg/dL | [facility] | | | (LAB) | | | LAB - | | | | | | [place] | | + +---------+ + + + | CREATININE | 0.87 [...] +---------+ + + + | CALCIUM, | 9.2 | mg/dL | [facility] | | | [...] + + + | ALK PHOS | 200 (H) | U/L | [facility] | | | | | | LAB - | | | | | | [place] | | + +---------+ + + + | AST(SGOT) | 35 | U/L | [facility] | | | [...] [address] | [place], [place] | [phone] | | [place] | | | | [...]
--- OUTSIDE RECORDS SUMMARY | ~2019-12-22 | XMS | Encounter Summary ---
Demographics + + + | Address | [address] | | | [place] [address] | + + + | Home Phone [...] + | Roxana Bo | ECON | [address] | | | | | [place] | | | | | [address] | | + + + + + Care Team Providers + +------+ + | Care Guide Dog Trainer Name | Role | Phone | + +------+ + | Ventura Carrasquillo MD | PCP | | + +------+ + Encounter Details +--------+ + + + + | Date | Type | Department | Care Team | Description | +--------+ + + + + | 10/03/ | Abstract | Digestive Health | [place] Dennis MD | | | 2010 | | [place] [address] [address] | [address] | | | | | [address] | [facility] [place] | | | | | for Health and | [address] | | | | | [facility], [address] | [phone] | | | | | [place], [place] | | | | | | [address] | | | | | | [phone] | | | +--------+ + + + [...] Rogers | | | | | | [place] | | | | | | [address] | | | | | | [phone] | | | | | | | | +--------+---------+ + + + documented as of this encounter Visit Diagnoses Not on filedocumented in this encounter"
--- OUTSIDE RECORDS SUMMARY | ~2019-12-22 | XMS | Encounter Summary ---
Demographics + + + | Address | [address] | | | [place] [address] | + + + | Home Phone [...] + | Roxana Bo | ECON | [address] | | | | | [place] | | | | | [address] | | + + + + + Care Team Providers + +------+ + | Care Shearing Machine Tender Name | Role | Phone | [...] | | 2013 | | Center at [facility] [address] | [address] | (URSODIOL) | | | | [address] | [place], [place] | | | | | for Health and | [address] | | | | | [place] [address] | [phone] | | | | | [place], [place] | | | | | | [address] | | | | | | [phone] | | | +--------+--------+ + + + [...] Rogers | | | | | | [place], [place] | | | | | | [address] | | | | | | [phone] | | | | | | | | +--------+---------+ + + + documented as of this encounter Visit Diagnoses Not on filedocumented in this encounter"
--- OUTSIDE RECORDS SUMMARY | ~2019-12-22 | XMS | Encounter Summary ---
Demographics + + + | Address | [address] | | | [place] [address] | + + + | Home Phone [...] + | Roxana Bo | ECON | [address] | | | | | [place] | | | | | [address] | | + + + + + Care Team Providers + +------+ + | Care Leaded Glass Installer Name | Role | Phone | [...] + + + + | 09/06/ | Radiation Protection Specialist | Digestive Health | Lake Dennis MD | | | 2020 | | Center at [facility] [address] | [address] | | | | | [address] | [place], [place] | | | | | for Health and | [address] | | | | | [facility], [facility] 2 | [phone] | | | | | [place], [place] | | | | | | [address] | | | | | | [phone] | | | +--------+ + + + [...] Rogers | | | | | | [place], [place] | | | | | | [address] | | | | | | [phone] | | | | | | | [...] - | [address] | [place], [place] | [phone] | | [place] | | | | [...] + + | [facility] - | [address] | [place] | [phone] | | [place] | | | | + + + + + documented in this encounter Visit Diagnoses Not on filedocumented in this encounter"
--- OUTSIDE RECORDS SUMMARY | ~2019-12-22 | XMS | Encounter Summary ---
Demographics + + + | Address | [address] | | | [place] [address] | + + + | Home Phone [...] + | Roxana Bo | ECON | [address] | | | | | [place] | | | | | [address] | | + + + + + Care Team Providers + +------+ + | Care Sales Route Driver Name | Role | Phone | + +------+ + | Ventura Carrasquillo MD | PCP | | + +------+ + Encounter Details +--------+ + + + + | Date | Type | Department | Care Team | Description | +--------+ + + + + | 02/10/ | MyChart | Digestive Health | [place] Dennis MD | Standing Order | | 2013 | Encounter | Center at [facility] [address] | [address] | | | | | [address] | [place], [place] | | | | | for Health and | [address] | | | | | [facility], [address] | [phone] | | | | | [place], [place] | | | | | | [address] | | | | | | [phone] | | | +--------+ + + + [...] Rogers | | | | | | [place] | | | | | | [address] | | | | | | [phone] | | | | | | | | +--------+---------+ + + + documented as of this encounter Visit Diagnoses Not on filedocumented in this encounter"
--- OUTSIDE RECORDS SUMMARY | ~2019-12-22 | XMS | Encounter Summary ---
Demographics + + + | Address | [address] | | | [place] [address] | + + + | Home Phone [...] + | Roxana Bo | ECON | [address] | | | | | [place] | | | | | [address] | | + + + + + Care Team Providers + +------+ + | Care Beveller Operator Name | Role | Phone | [...] Center at [facility] [address] | [address] | | | | | [address] | [place], [place] | | | | | for Health and | [address] | | | | | [facility] 2 | [phone] | | | | | [place], [place] | | | | | | [address] | | | | | | [phone] | | | +--------+ + + + [...] Rogers | | | | | | [place], [place] | | | | | | [address] | | | | | | [phone] | | | | | | | [...] [address] | [place], [place] | [phone] | | [place] | | | | [...] [address] | [place], [place] | [phone] | | [place] | | | | + + + + + documented in this encounter Visit Diagnoses Not on filedocumented in this encounter"
--- OUTSIDE RECORDS SUMMARY | ~2019-12-22 | XMS | Encounter Summary ---
Demographics + + + | Address | [address] | | | [place] [address] | + + + | Home Phone [...] + | Roxana Bo | ECON | [address] | | | | | [place] | | | | | [address] | | + + + + + Care Team Providers + +------+ + | Care Bulk Tank Driver Name | Role | Phone | [...] Medical Records | | 2017 | | Center at [facility] [address] | [address] | Review | | | | [address] | [place], [place] | | | | | for Health and | [address] | | | | | [place] [address] | [phone] | | | | | [place], [place] | | | | | | [address] | | | | | | [phone] | | | +--------+ + + + [...] Rogers | | | | | | [place], [place] | | | | | | [address] | | | | | | [phone] | | | | | | | | +--------+---------+ + + + documented as of this encounter Visit Diagnoses Not on filedocumented in this encounter"
--- OUTSIDE RECORDS SUMMARY | ~2019-12-22 | XMS | Encounter Summary ---
Demographics + + + | Address | [address] | | | [place] [address] | + + + | Home Phone [...] + | Roxana Bo | ECON | [address] | | | | | [place] | | | | | [address] | | + + + + + Care Team Providers + +------+ + | Care Scalloper Name | Role | Phone | + [...] Medication Question | | 2017 | | Center at [facility] [address] | [address] | | | | | [address] | [place], [place] | | | | | for Health and | [address] | | | | | [facility] 2 | [phone] | | | | | [place], [place] | | | | | | [address] | | | | | | [phone] | | | +--------+ + + + [...] Rogers | | | | | | [place], [place] | | | | | | [address] | | | | | | [phone] | | | | | | | | +--------+---------+ + + + documented as of this encounter Visit Diagnoses Not on filedocumented in this encounter"
--- OUTSIDE RECORDS SUMMARY | ~2019-12-22 | XMS | Encounter Summary ---
Demographics + + + | Address | [address] | | | [place] [address] | + + + | Home Phone [...] + | Roxana Bo | ECON | [address] | | | | | [place] | | | | | [address] | | + + + + + Care Team Providers + +------+ + | Care Secretary Of State Name | Role | Phone | + [...] | 2012 | Visit | Center at [facility] [address] | [address] | cirrhosis (HCC) | | | | [address] | [place], [place] | (Primary Dx); | | | | for Health and | [address] | Autoimmune hepatitis | | | | [facility] 2 | [phone] | (HCC) | | | | [facility] [place] | | | | | | [address] | | | | | | [phone] | | | +--------+---------+ + + + [...] 4 caps by mouth prior to procedure. ctnffxucgfmu-pjrggol-odojeae-folic acid chewable 200-0.4 mg Oral Tablet, Chewable Take 2 Tabs by mouth once daily. jumkvvnbydhy-ontayvt-sffk-lutein (CENTRUM SILVER ULTRA WOMEN'S) Oral Tablet Take 1 Tab by mouth once daily. [place]-3 Fatty Acids-Vitamin E (FISH OIL) 1,000 mg [...] rsodiol. Plan 1) cont current meds 2) v3tvsjdv CMP, CBC, plts, diff, 3) RTC in [...] Rogers | | | | | | [place], [place] | | | | | | [address] | | | | | | [phone] | | | | | | | | +--------+---------+ + + + documented as of this encounter Visit Diagnoses + + | Diagnosis | + + | Primary biliary cirrhosis (HCC) - Primary Biliary cirrhosis | + + | Autoimmune hepatitis (HCC) Autoimmune hepatitis | + + documented in this encounter
--- OUTSIDE RECORDS SUMMARY | ~2019-12-22 | XMS | Encounter Summary ---
Demographics + + + | Address | [address] | | | [place] [address] | + + + | Home Phone [...] + | Roxana Bo | ECON | [address] | | | | | [place] | | | | | [address] | | + + + + + Care Team Providers + +------+ + | Care Assistant Plant Manager Name | Role | Phone | + +------+ + | Ventura Carrasquillo MD | PCP | | + +------+ + Reason for Visit + + + | Reason | Comments | + + + | Blood Test Results | 10/04/2009 | + + + Encounter Details +--------+ + + + + | Date | Type | Department | Care Team | Description | +--------+ + + + + | 07/11/ | Documentati | Digestive Health | [place] Dennis MD | Blood Test Results | | 2010 | on | Center at [facility] [address] | [address] | (10/04/2009) | | | | [address] | [place], [place] | | | | | for Health and | [address] | | | | | [facility], [facility] 2 | [phone] | | | | | [place], [place] | | | | | | [address] | | | | | | [phone] | | | +--------+ + + + [...] Rogers | | | | | | [place], [place] | | | | | | [address] | | | | | | [phone] | | | | | | | | +--------+---------+ + + + documented as of this encounter Procedures + +--------+ + + + | Procedure Name | Priori | Date/Time | Associated Diagnosis | Comments | | | ty | | | | + +--------+ + + + | INR | Routin | 10/04/2009 | | Results for this | | | e | 10:55 AM | | procedure are in the | | | | PDT | | results section. | + +--------+ + + + | COMPLETE METABOLIC | Routin | 10/04/2009 | | Results for this | | SET | e | 10:55 AM | | procedure are in the | | (NA,K,CL,CO2,BUN,CRE | | PDT | | results section. | | AT,GLUC,CA,AST,ALT,B | | | | | | JONH TOTAL,ALK | | | | | | PHOS,ALB,PROT TOTAL) | | | | | + +--------+ + + + | CBC ONLY | Routin | 10/04/2009 | | Results for this | | | e | 10:55 AM | | procedure are in the | | | | PDT | | results section. | + +--------+ + + + documented in this encounter Results COMPLETE METABOLIC SET (NA,K,CL,CO2,BUN,CREAT,GLUC,CA,AST,ALT,BILI TOTAL,ALK PHOS,ALB,PROT TOTAL) (10/04/2009 10:55 AM PDT) + +-------+ + + + | Component | Value | Ref Range | Performed | Pathologist | | | | | At | Signature | + +-------+ + + + | GLUCOSE, | 84 | 65 - 110 mg/dL | [facility] | | | PLASMA | | | LAB - | | | (LAB) | | | [place] | | + +-------+ + + + | BUN, PLASMA | 9 | mg/dL | [facility] | | | (LAB) | | | LAB - | | | | | | [place] | | + +-------+ + + + | CREATININE | 0.74 | mg/dL | [facility] | | | PLASMA | | | LAB - | | | (LAB) | | | [place] | | + +-------+ + + + | ALBUMIN, | 3.6 [...] + + + | ALK PHOS | 120 | U/L | [facility] | | | | | | LAB - | | | | | | [place] | | + +-------+ + + + | AST(SGOT) | 25 [...] | [address] | [place], [place] | | | [place] | 120 | [address] | | + + + + + CBC ONLY (10/04/2009 10:55 AM PDT) + + + + + [...] + + + | RED CELL | 4.93 | M/cu mm | [facility] | | | COUNT | | | LAB - | | | | | | [facility] | | + + + + + + | HEMOGLOBIN | 14.8 | 12.1998 - 15 | [facility] | | | | | g/dL | LAB - | | | | | | [facility] | | + + + + + + | HEMATOCRIT | 46.2 (H) | % | [facility] | | | | | | LAB - | | | | | | [facility] | | + + + + + + | PLATELET | 349 | K/cu mm | [facility] | | [...] | | | [place] | 120 | [id number] | | + + + + + INR (10/04/2009 10:55 AM PDT) + +---------+ + + + [...] | | | [place] | 120 | [address] | | + + + + + documented in this encounter Visit Diagnoses Not on filedocumented in this encounter"
--- OUTSIDE RECORDS SUMMARY | ~2019-12-22 | XMS | Encounter Summary ---
Demographics + + + | Address | [address] | | | [place] [address] | + + + | Home Phone [...] + | Roxana Bo | ECON | [address] | | | | | [place] | | | | | [address] | | + + + + + Care Team Providers + +------+ + | Care Manager Of Data Name | Role | Phone | + +------+ + | Ventura Carrasquillo MD | PCP | | + +------+ + Encounter Details +--------+ + + + + | Date | Type | Department | Care Team | Description | +--------+ + + + + | 10/03/ | Abstract | Digestive Health | Lake Dennis MD | | | 2010 | | [place] [address] [address] | [address] | | | | | [address] | [facility] [place] | | | | | for Health and | [address] | | | | | [facility], Building 2 | [phone] | | | | | [place], [place] | | | | | | [address] | | | | | | [phone] | | | +--------+ + + + [...] [place] | | | | | | [place] | | | | | | [address] | | | | | | [phone] | | | | | | | | +--------+---------+ + + + documented as of this encounter Visit Diagnoses Not on filedocumented in this encounter"
--- OUTSIDE RECORDS SUMMARY | ~2019-12-22 | XMS | Encounter Summary ---
Demographics + + + | Address | [address] | | | [place] [address] | + + + | Home Phone [...] + | Roxana Bo | ECON | [address] | | | | | [place] | | | | | [address] | | + + + + + Care Team Providers + +------+ + | Care Manager Gallery Name | Role | Phone | + +------+ + | Ventura Carrasquillo MD | PCP | | + +------+ + Encounter Details +--------+ + + + + | Date | Type | Department | Care Team | Description | +--------+ + + + + | 04/08/ | Documentati | Digestive Health | Clinic, | | | 2010 | on | Center at [facility] [address] | Gastroenterology | | | | | [address] [facility] | | | | | | for Health and | | | | | | Healing, Building 2 | | | | | | [place], [place] | | | | | | [address] | | | | | | [phone] | | | +--------+ + + + [...] [place] | | | | | | [address] | | | | | | [phone] | | | | | | | | +--------+---------+ + + + documented as of this encounter Visit Diagnoses Not on filedocumented in this encounter"
--- OUTSIDE RECORDS SUMMARY | ~2019-12-22 | XMS | Encounter Summary ---
Demographics + + + | Address | [address] | | | [place] [address] | + + + | Home Phone [...] + | Roxana Bo | ECON | [address] | | | | | [place] | | | | | [address] | | + + + + + Care Team Providers + +------+ + | Care Wire Communications Engineer Name | Role | Phone | [...] | | 2012 | | Center at [facility] [address]85 | [address] | last refill 03/2012) | | | | [address] | [place], [place] | | | | | for Health and | [address] | | | | | [facility] 2 | [phone] | | | | | [place], [place] | | | | | | [address] | | | | | | [phone] | | | +--------+--------+ + + + [...] Rogers | | | | | | [place], [place] | | | | | | [address] | | | | | | [phone] | | | | | | | | +--------+---------+ + + + documented as of this encounter Visit Diagnoses Not on filedocumented in this encounter"
--- OUTSIDE RECORDS SUMMARY | ~2019-12-22 | XMS | Encounter Summary ---
Demographics + + + | Address | [address] | | | [place] [address] | + + + | Home Phone [...] + | Roxana Bo | ECON | [address] | | | | | [place] | | | | | [address] | | + + + + + Care Team Providers + +------+ + | Care Grocery Deliverer Name | Role | Phone | + [...] | +--------+ + + + + | 11/28/ | Telephone | Digestive Health | Lake Dennis MD | Medication Question | | 2017 | | Center at [facility] [address]85 | [address] | | | | | [address] | [place], [place] | | | | | for Health and | [address] | | | | | [facility] 2 | [phone] | | | | | [place], [place] | | | | | | [address] | | | | | | [phone] | | | +--------+ + + + [...] [place] | | | | | | [place], [place] | | | | | | [address] | | | | | | [phone] | | | | | | | | +--------+---------+ + + + documented as of this encounter Visit Diagnoses Not on filedocumented in this encounter"
--- OUTSIDE RECORDS SUMMARY | ~2019-12-22 | XMS | Encounter Summary ---
Demographics + + + | Address | [address] | | | [place] [address] | + + + | Home Phone [...] + | Roxana Bo | ECON | [address] | | | | | [place] | | | | | [address] | | + + + + + Care Team Providers + +------+ + | Care Systems Test Engineer Name | Role | Phone | [...] | 2017 | Encounter | Center at [facility] [address] | [address] | Prescription Update | | | | [address] | [place], [place] | | | | | for Health and | [address] | | | | | Healing, Building 2 | [phone] | | | | | [place], [place] | | | | | | [address] | | | | | | [phone] | | | +--------+ + + + [...] [place] | | | | | | [address] | | | | | | [phone] | | | | | | | | +--------+---------+ + + + documented as of this encounter Visit Diagnoses Not on filedocumented in this encounter"
--- OUTSIDE RECORDS SUMMARY | ~2019-12-22 | XMS | Encounter Summary ---
Demographics + + + | Address | [address] | | | [place] [address] | + + + | Home Phone [...] + | Roxana Bo | ECON | [address] | | | | | [place] | | | | | [address] | | + + + + + Care Team Providers + +------+ + | Care Tax Technician Name | Role | Phone | + +------+ + | No Pcp Per Patient | PCP | Unavailable | + +------+ + Encounter Details +--------+ + + + + | Date | Type | Department | Care Team | Description | +--------+ + + + + | 11/26/ | MyChart | Digestive Health | Lake Dennis MD | RE: Medication | | 2015 | Encounter | Center at [facility] [address]85 | [address] | question | | | | [address] | [facility] [place] | | | | | for Health and | [address] | | | | | Healing, Building 2 | [phone] | | | | | [place], [place] | | | | | | [address] | | | | | | [phone] | | | +--------+ + + + [...] [place] | | | | | | [address] | | | | | | [phone] | | | | | | | | +--------+---------+ + + + documented as of this encounter Visit Diagnoses Not on filedocumented in this encounter"
--- OUTSIDE RECORDS SUMMARY | ~2019-12-22 | XMS | Encounter Summary ---
Demographics + + + | Address | [address] | | | [place] [address] | + + + | Home Phone [...] + | Roxana Bo | ECON | [address] | | | | | [place] | | | | | [address] | | + + + + + Care Team Providers + +------+ + | Care Claims Vice President Name | Role | Phone | [...] | | | | abnormal | [address] | [address] | | | | | results of | Ave | [address] | | | | | liver | [place], [place] | Physician's | | | | | function | [address] | [place], | | | | | study | Phone: | 4th Floor | | | | | Procedures | [phone] | [place], [place] | | | | | US BIOPSY | Fax: | [address] | | | | | LIVER W/ US | [phone] | Phone: | | | | | & GUIDANCE | | [phone] | | | | | | | Fax: | | | | | | | [phone] | +--------+--------+ + + + + Reason [...] | | | | | | | [facility] | | | | | | | [facility] | | | | | | | [place], [place] | | | | | | | [address] | | | | | | | Phone: | | | | | | | [phone] | | | | | | | Fax: | | | | | | | [phone] | +--------+--------+ + + + + Encounter Details +--------+ + + + + | Date | Type | Department | Care Team | Description | +--------+ + + + + | 02/20/ | Hospital | Diagnostic | | | | 2008 | Encounter | Radiology at [facility] | | | | | | [address] | | | | | | [address] Physician's | | | | | | [place], [facility] Floor | | | | | | [place], [place] | | | | | | [address] | | | | | | [phone] | | | +--------+ + + + [...] [place] | | | | | | [place], [place] | | | | | | [address] | | | | | | [phone] | | | | | | | [...] | | | | | wasobtained. The liver | | | | | | was scanned and a point | | | | | | marked on the | | | | | | skin,overlying the left | | | | | | lobe. The area was | | | | | | prepped and draped in | | | | | | sterilefashion. | | | | | | Several ml of 1 | | | | | | percent lidocaine was | | | | | | used for | | | | | | localanesthesia. | | | | | | Radiology nurse was | | | | | | present for blood | | | | | | pressure, heartrate, and | | | | | | oxygen saturation | | | | | [...] | | | | | | theprocedure well. | | | | | | Heath was present for | | | | | | the entire | | | | | [...] | | | | | RAINE ESCOBAReviewer: MINGO | | | | | | Glo CABANSTATUS FINAL | | | | | | / Dr. MINGO MCFARLAND | | | | | | PENDING FINAL APPROVAL / | | | | | | Dr. VINCENZO Schmidt | | | | | | OBED | | | | | | PRELIMINARY - UNSIGNED / | | | | | | Dr. VINCENZO SECOBAR | | | | + + + + + + + + | Specimen | + + | | + + + +---------+ + + | Performing | Address | City/State/Zipcode | Phone Number | | Organization | | | | + +---------+ + + | [facility] DEPARTMENT OF | | | | | RADIOLOGY | | | | + +---------+ + + documented in this encounter Visit Diagnoses + + | Diagnosis | + + | Nonspecific abnormal results of liver function study | + + documented in this encounter"
--- OUTSIDE RECORDS SUMMARY | ~2019-12-22 | XMS | Encounter Summary ---
Demographics + + + | Address | [address] | | | [place] [address] | + + + | Home Phone [...] + | Roxana Bo | ECON | [address] | | | | | [place] | | | | | [address] | | + + + + + Care Team Providers + +------+ + | Care Gas Furnace Installer Name | Role | Phone [...] | 2013 | on | Center at [facility] [address] | [address] | (Out side labs from | | | | [address] [facility] | [place], [place] | [facility]. | | | | for Health and | [address] | 07/01/13.) | | | | Healing, Building 2 | [phone] | | | | | [place], [place] | | | | | | [address] | | | | | | [phone] | | | +--------+ + + + [...] [place] | | | | | | [place], [place] | | | | | | [address] | | | | | | [phone] | | | | | | | [...] - | [address] | [place], [place] | [phone] | | [place] | | | | [...] [address] | [place] | [phone] | | [place] | | | | + + + + + documented in this encounter Visit Diagnoses Not on filedocumented in this encounter"
--- OUTSIDE RECORDS SUMMARY | ~2019-12-22 | XMS | Encounter Summary ---
Demographics + + + | Address | [address] | | | [place] [address] | + + + | Home Phone [...] + | Roxana Bo | ECON | [address] | | | | | [place] | | | | | [address] | | + + + + + Care Team Providers + +------+ + | Care Brick And Tile Making Machine Operator Name | Role | Phone [...] | | 2013 | anned | Services [address] | | | | | | [address] | | | | | | Mailcode: [id number] | | | | | | [facility] | | | | | | [place], [place] | | | | | | [address] | | | | | | [phone] | | | +--------+ + + + [...] [place] | | | | | | [place], [place] | | | | | | [address] | | | | | | [phone] | | | | | | | [...]
--- OUTSIDE RECORDS SUMMARY | ~2019-12-22 | XMS | Encounter Summary ---
Demographics + + + | Address | [address] | | | [place] [address] | + + + | Home Phone [...] + | Roxana Bo | ECON | [address] | | | | | [place] | | | | | [address] | | + + + + + Care Team Providers + +------+ + | Care Supervisor Sintering Plant Name | Role | Phone | + [...] | | 2017 | | Center at [facility] [address] | [address] | Review | | | | [address] | [place], [place] | | | | | for Health and | [address] | | | | | [place] [address] | [phone] | | | | | [place], [place] | | | | | | [address] | | | | | | [phone] | | | +--------+ + + + [...] Rogers | | | | | | [place], [place] | | | | | | [address] | | | | | | [phone] | | | | | | | | +--------+---------+ + + + documented as of this encounter Visit Diagnoses Not on filedocumented in this encounter"
--- OUTSIDE RECORDS SUMMARY | ~2019-12-22 | XMS | Encounter Summary ---
Demographics + + + | Address | [address] | | | [place] [address] | + + + | Home Phone [...] + | Roxana Bo | ECON | [address] | | | | | [place] | | | | | [address] | | + + + + + Care Team Providers + +------+ + | Care It Auditor Name | Role | Phone | [...] 12/03/ | Telephone | Digestive Health | Lkae Dennis MD | Lab findings, | | 2010 | | Center at [facility] 3485 | [address] | teaching, guidance, | | | | [facility] | [place], [place] | and counseling; | | | | for Health and | [address] | Medication | | | | [facility], [facility] 2 | [phone] | management | | | | [place], [place] | | | | | | [address] | | | | | | [phone] | | | +--------+ + + + [...] | 2019 | Visit | | [address] | | | | | | [place], [place] | | | | | | [address] | | | | | | [phone] | | | | | | | | +--------+---------+ + + + documented as of this encounter Visit Diagnoses Not on filedocumented in this encounter"
--- OUTSIDE RECORDS SUMMARY | ~2019-12-22 | XMS | Encounter Summary ---
Demographics + + + | Address | [address] | | | [place] [address] | + + + | Home Phone [...] + | Roxana Bo | ECON | [address] | | | | | [place] | | | | | [address] | | + + + + + Care Team Providers + +------+ + | Care Dermatologist And Dermatopathologist Name | Role | Phone | + +------+ + | Ventura Carrasquillo MD | PCP | | + +------+ + Reason for Visit + + + | Reason | Comments | + + + | Blood Test Results | [facility] - OUT[facility] LAB 07/04/14 CBC and misc. | + + + | Blood Test Results | C - OUTSIDE LAB 07/04/14 Misc results | + + + Encounter Details +--------+ + + + + | Date | Type | Department | Care Team | Description | +--------+ + + + + | 07/06/ | Abstract | Digestive Health | Lake Dennis MD | Blood Test Results | | 2014 | | Center [place] [address] [address] | [address] | ([facility] OUT[facility] LAB | | | | [address] | [place], [place] | 07/04/14 CBC and | | | | for Health and | [address] | [facility] Blood Test | | | | [facility] 2 | [phone] | Results ([facility] - | | | | [place], [place] | | OUTSIDE LAB 07/04/14 | | | | [address] | | [facility] results) | | | | [phone] | | | +--------+ + + + [...] Rogers | | | | | | [place], [place] | | | | | | [address] | | | | | | [phone] | | | | | | | | +--------+---------+ + + + documented as of this encounter Visit Diagnoses Not on filedocumented in this encounter"
--- OUTSIDE RECORDS SUMMARY | ~2019-12-22 | XMS | Encounter Summary ---
Demographics + + + | Address | [address] | | | [place] [address] | + + + | Home Phone [...] + | Roxana Bo | ECON | [address] | | | | | [place] | | | | | [address] | | + + + + + Care Team Providers + +------+ + | Care Library Sales Consultant Name | Role | Phone | [...] | | 2018 | | Center at [facility] [address] | [address] | | | | | [address] | [place], [place] | | | | | for Health and | [address] | | | | | [facility] 2 | [phone] | | | | | [place], [place] | | | | | | [address] | | | | | | [phone] | | | +--------+ + + + [...] | | | | | | [place], [place] | | | | | | [address] | | | | | | [phone] | | | | | | | | +--------+---------+ + + + documented as of this encounter Visit Diagnoses Not on filedocumented in this encounter"
--- OUTSIDE RECORDS SUMMARY | ~2019-12-22 | XMS | Encounter Summary ---
Demographics + + + | Address | [address] | | | [place] [address] | + + + | Home Phone | | + + + | Preferred Language | Unknown | + + + | Marital Status | Unknown | + + + | Jainism Affiliation | Unknown | + + + | Race | Unknown | + + + | Ethnic Group | Unknown | + + + Author + + + | Author | [facility] | | | and [place] | + + + | Organization | [facility] | | | and [place] | + + + | Address | Unknown | + + + | Phone | Unavailable | + + + Care Team Providers + +------+ + | Care Red Cross Executive Director Name | Role | Phone | + +------+ + PCP | Unavailable | + +------+ + Encounter Details +--------+ + + + + | Date | Type | Department | Care Team | Description | +--------+ + + + + | 04/09/ | Hospital | [facility] | Doroteo Alanis, | | | 2005 | Encounter | MED CTR XRAY [address] [facility] | | | | | [place] | [place] | | | | | [place] [address] | [address] | | | | | [phone] | | | +--------+ + + + [...]
--- OUTSIDE RECORDS SUMMARY | ~2019-12-22 | XMS | Encounter Summary ---
Demographics + + + | Address | [address] | | | [place] [address] | + + + | Home Phone | | + + + | Preferred Language | Unknown | + + + | Marital Status | | + + + | Lutheran Affiliation | CAT | + + + [...] + | Roxana Bo | ECON | [address] | | | | | [place] | | | | | [address] | | + + + + + Care Team Providers + +------+ + | Care Hairspring Truer Name | Role | Phone | + [...] | | 2018 | | Center at [facility] [address] | [address] | (Ursodiol and | | | | [address] | [place], [place] | Azathioprine) | | | | for Health and | [address] | | | | | [facility], [facility] 2 | [phone] | | | | | [place], [place] | | | | | | [address] | | | | | | [phone] | | | +--------+--------+ + + + [...] Rogers | | | | | | [place], [place] | | | | | | [address] | | | | | | [phone] | | | | | | | | +--------+---------+ + + + documented as of this encounter Visit Diagnoses Not on filedocumented in this encounter"
--- OUTSIDE RECORDS SUMMARY | ~2019-12-22 | XMS | Encounter Summary ---
Demographics + + + | Address | [address] | | | [place] [address] | + + + | Home Phone [...] + | Roxana Bo | ECON | [address] | | | | | [place] | | | | | [address] | | + + + + + Care Team Providers + +------+ + | Care Laundry Supervisor Name | Role | Phone | [...] | | 2010 | | Center at [facility] [address] | [address] | management | | | | [address] | [place], [place] | | | | | [facility] Health and | [address] | | | | | [facility], [facility] 2 | [phone] | | | | | [place], [place] | | | | | | [address] | | | | | | [phone] | | | +--------+ + + + [...] [place] | | | | | | [place] | | | | | | [address] | | | | | | [phone] | | | | | | | | +--------+---------+ + + + documented as of this encounter Visit Diagnoses Not on filedocumented in this encounter"
--- OUTSIDE RECORDS SUMMARY | ~2019-12-22 | XMS | Encounter Summary ---
Demographics + + + | Address | [address] | | | [place] [address] | + + + | Home Phone [...] + | Roxana Bo | ECON | [address] | | | | | [place] | | | | | [address] | | + + + + + Care Team Providers + +------+ + | Care Interior Design Assistant Name | Role | Phone | [...] | 2016 | on | Center at [facility] [address] | [address] | (Outside Labs from | | | | [address] | [place], [place] | [facility] [place] | | | | for Health and | [address] | 09/03/15) | | | | [place] [address] | [phone] | | | | | [place], [place] | | | | | | [address] | | | | | | [phone] | | | +--------+ + + + [...] Rogers | | | | | | [place], [place] | | | | | | [address] | | | | | | [phone] | | | | | | | [...] [address] | [place] | [phone] | | [place] | | | | [...] + + | [facility] - | [address] | [place], [place] | [phone] | | [place] | | | | + + + + + documented in this encounter Visit Diagnoses Not on filedocumented in this encounter"
--- OUTSIDE RECORDS SUMMARY | ~2019-12-22 | XMS | Encounter Summary ---
Demographics + + + | Address | [address] | | | [place] [address] | + + + | Home Phone [...] + | Roxana Bo | ECON | [address] | | | | | [place] | | | | | [address] | | + + + + + Care Team Providers + +------+ + | Care Carpenter Inspector Name | Role | Phone | + +------+ + | Ventura Carrasquillo MD | PCP | | + +------+ + Encounter Details +--------+ + + + + | Date | Type | Department | Care Team | Description | +--------+ + + + + | 02/04/ | Telephone | Digestive Health | Lake Dennis MD | | | 2019 | | [place] [address] [address] | [address] | | | | [address] | [facility] [place] | | | | | for Health and | [address] | | | | | [facility], Building 2 | [phone] | | | | | [place], [place] | | | | | | [address] | | | | | | [phone] | | | +--------+ + + + [...] | | | | | | [place], [place] | | | | | | [address] | | | | | | [phone] | | | | | | | | +--------+---------+ + + + documented as of this encounter Procedures + +--------+ + + + | Procedure Name | Priori | Date/Time | Associated Diagnosis | Comments | | | ty | | | | + +--------+ + + + | COMPLETE METABOLIC | Routin | 05/05/2019 | | Results for this | | SET | e | | | procedure are in the | | (NA,K,CL,CO2,BUN,CRE | | | | results section. | | AT,GLUC,CA,AST,ALT,B | | | | | | JONH TOTAL,ALK | | | | | | PHOS,ALB,PROT TOTAL) | | | | | + +--------+ + + + | CBC ONLY | Routin | 05/05/2019 | | Results for this | | | e | | | procedure are in the | | | | | | results section. | + +--------+ + + + documented in this encounter Results COMPLETE METABOLIC SET (NA,K,CL,CO2,BUN,CREAT,GLUC,CA,AST,ALT,BILI TOTAL,ALK PHOS,ALB,PROT TOTAL) (05/05/2019) + +---------+ + + + | Component [...] +---------+ + + + | CREATININE | 0.85 | mg/dL | [facility] | | | [...] + + + | ALK PHOS | 202 (H) | U/L | [facility] | | [...] | | | [place] | 120 | [address] | | + + + + + CBC ONLY (05/05/2019) + +-------+ + + + | Component [...] + + + | RED CELL | 4.56 | M/cu mm | [facility] | | | COUNT | | | LAB - | | | | | | [place] | | + +-------+ + + + | HEMOGLOBIN | 13.7 | g/dL | [facility] | | | | | | LAB - | | | | | | [place] | | + +-------+ + + + | HEMATOCRIT | 42.7 | % | [facility] | | | [...] | | | [place] | 120 | [address] | | + + + + + documented in this encounter Visit Diagnoses Not on filedocumented in this encounter"
--- OUTSIDE RECORDS SUMMARY | ~2019-12-22 | XMS | Encounter Summary ---
Demographics + + + | Address | [address] | | | [place] [address] | + + + | Home Phone [...] + | Roxana Bo | ECON | [address] | | | | | [place] | | | | | [address] | | + + + + + Care Team Providers + +------+ + | Care Ict Support Technicians Name | Role | Phone | + [...] | | [address] | [place], [place] | | | | | for Health and | [address] | | | | | [facility], [facility] 2 | [phone] | | | | | [place], [place] | | | | | | [address] | | | | | | [phone] | | | +--------+ + + + [...] [place] | | | | | | [place], [place] | | | | | | [address] | | | | | | [phone] | | | | | | | [...] | [address] | [place], [place] | | | [place] | 120 | [address] | | + + + + + [...] | | | [place] | 120 | [address] | | + + + + + [...] | | | [place] | 120 | [address] | | + + + + + documented in this encounter Visit Diagnoses Not on filedocumented in this encounter"
--- OUTSIDE RECORDS SUMMARY | ~2019-12-22 | XMS | Encounter Summary ---
Demographics + + + | Address | [address] | | | [place] [address] | + + + | Home Phone [...] + | Roxana Bo | ECON | [address] | | | | | [place] | | | | | [address] | | + + + + + Care Team Providers + +------+ + | Care Electromechanisms Design Drafter Name | Role | Phone | + [...] | | 2010 | | Center at [facility] [address] | [address] | management | | | | [address] | [place], [place] | | | | | [facility] Health and | [address] | | | | | [facility], [facility] 2 | [phone] | | | | | [place], [place] | | | | | | [address] | | | | | | [phone] | | | +--------+ + + + [...] Rogers | | | | | | [place] | | | | | | [address] | | | | | | [phone] | | | | | | | | +--------+---------+ + + + documented as of this encounter Visit Diagnoses Not on filedocumented in this encounter"
--- OUTSIDE RECORDS SUMMARY | ~2019-12-22 | XMS | Encounter Summary ---
Demographics + + + | Address | [address] | | | [place] [address] | + + + | Home Phone [...] + | Roxana Bo | ECON | [address] | | | | | [place] | | | | | [address] | | + + + + + Care Team Providers + +------+ + | Care Medical Accounting Clerk Name | Role | Phone | [...] | 2020 | Encounter | Center at [facility] [address] | [address] | | | | | [address] | [facility] [place] | | | | | for Health and | [address] | | | | | Healing, Building 2 | [phone] | | | | | [place], [place] | | | | | | [address] | | | | | | [phone] | | | +--------+ + + + [...] Rogers | | | | | | [place] | | | | | | [address] | | | | | | [phone] | | | | | | | | +--------+---------+ + + + documented as of this encounter Visit Diagnoses Not on filedocumented in this encounter"
--- OUTSIDE RECORDS SUMMARY | ~2019-12-22 | XMS | Encounter Summary ---
Demographics + + + | Address | [address] | | | [place] [address] | + + + | Home Phone [...] + | Roxana Bo | ECON | [address] | | | | | [place] | | | | | [address] | | + + + + + Care Team Providers + +------+ + | Care Spring Layer Name | Role | Phone | + [...] | | 2020 | | Center at [facility] [address] | [address] | Review | | | | [address] | [place], [place] | | | | | for Health and | [address] | | | | | [place] [address] | [phone] | | | | | [place], [place] | | | | | | [address] | | | | | | [phone] | | | +--------+ + + + [...] Rogers | | | | | | [place], [place] | | | | | | [address] | | | | | | [phone] | | | | | | | | +--------+---------+ + + + documented as of this encounter Visit Diagnoses Not on filedocumented in this encounter"
--- OUTSIDE RECORDS SUMMARY | ~2019-12-22 | XMS | Encounter Summary ---
Demographics + + + | Address | [address] | | | [place] [address] | + + + | Home Phone [...] + | Roxana Bo | ECON | [address] | | | | | [place] | | | | | [address] | | + + + + + Care Team Providers + +------+ + | Care Wireless Team Member Name | Role | Phone | + [...] | 2019 | on | Center at [facility] [address]85 | [address] | | | | | [address] | [place], [place] | | | | | for Health and | [address] | | | | | [facility], Building 2 | [phone] | | | | | [place], [place] | | | | | | [address] | | | | | | [phone] | | | +--------+ + + + [...] Rogers | | | | | | [place], [place] | | | | | | [address] | | | | | | [phone] | | | | | | | [...] + + | [facility] - | [address] | [place], [place] | [phone] | | [place] | | | | [...] [address] | [place] | [phone] | | [place] | | | | + + + + + documented in this encounter Visit Diagnoses Not on filedocumented in this encounter"
--- OUTSIDE RECORDS SUMMARY | ~2019-12-22 | XMS | Encounter Summary ---
Demographics + + + | Address | [address] | | | [place] [address] | + + + | Home Phone [...] + | Roxana Bo | ECON | [address] | | | | | [place] | | | | | [address] | | + + + + + Care Team Providers + +------+ + | Care Escrow Agent Name | Role | Phone | + [...] | | [address] | [place], [place] | | | | | for Health and | [address] | | | | | Healing, Building 2 | [phone] | | | | | [place], [place] | | | | | | [address] | | | | | | [phone] | | | +--------+ + + + [...] [place] | | | | | | [address] | | | | | | [phone] | | | | | | | [...]
--- OUTSIDE RECORDS SUMMARY | ~2019-12-22 | XMS | Encounter Summary ---
Demographics + + + | Address | [address] | | | [place] [address] | + + + | Home Phone [...] + | Roxana Bo | ECON | [address] | | | | | [place] | | | | | [address] | | + + + + + Care Team Providers + +------+ + | Care Director Ship Name | Role | Phone | + [...] Test | | 2013 | Encounter | Center at [facility] [address] | [address] | | | | | [address] | [place], [place] | | | | | [facility] Health and | [address] | | | | | [facility], [facility] 2 | [phone] | | | | | [place], [place] | | | | | | [address] | | | | | | [phone] | | | +--------+ + + + [...] Rogers | | | | | | [place], [place] | | | | | | [address] | | | | | | [phone] | | | | | | | [...] + + | [facility] - | [address] | [place], [place] | [phone] | | [place] | | | | [...] [address] | [place] | [phone] | | [place] | | | | + + + + + documented in this encounter Visit Diagnoses Not on filedocumented in this encounter"
--- OUTSIDE RECORDS SUMMARY | ~2019-12-22 | XMS | Encounter Summary ---
Demographics + + + | Address | [address] | | | [place] [address] | + + + | Home Phone [...] + | Roxana Bo | ECON | [address] | | | | | [place] | | | | | [address] | | + + + + + Care Team Providers + +------+ + | Care Airplane Woodworker Name | Role | Phone | + +------+ + | Ventura Carrasquillo MD | PCP | | + +------+ + Encounter Details +--------+ + + + + | Date | Type | Department | Care Team | Description | +--------+ + + + + | 04/07/ | Abstract | Digestive Health | Lake Dennis MD | | | 2010 | | [place] [address] [address] | [address] | | | | | [address] | [facility] [place] | | | | | for Health and | [address] | | | | | [facility], Building 2 | [phone] | | | | | [place], [place] | | | | | | [address] | | | | | | [phone] | | | +--------+ + + + [...] Rogers | | | | | | [place] | | | | | | [address] | | | | | | [phone] | | | | | | | | +--------+---------+ + + + documented as of this encounter Visit Diagnoses Not on filedocumented in this encounter"
--- OUTSIDE RECORDS SUMMARY | ~2019-12-22 | XMS | Encounter Summary ---
Demographics + + + | Address | [address] | | | [place] [address] | + + + | Home Phone [...] + | Roxana Bo | ECON | [address] | | | | | [place] | | | | | [address] | | + + + + + Care Team Providers + +------+ + | Care Surgical Consultant Name | Role | Phone | [...] | | | Procedures | FAMILY | [place], [place] | | | | | CONSULT TO | MEDICINE | [address] | | | | | HEPATOLOGY | [address] | Phone: | | | | | liver bx | [address] | [phone] | | | | | | [place], | Fax: | | | | | | [place] [address] | [phone] | | | | | | Phone: | | | | | | | [phone] | | | | | | | Fax: | | | | | | | [phone] | | +--------+ + + + + + Encounter Details +--------+---------+ + + + | Date | Type | Department | Care Team | Description | +--------+---------+ + + + | 02/12/ | Office | Digestive Health | Lake Ontiveros MD | Autoimmune hepatitis | | 2009 | Visit | Center at [facility] [address] | [address] | (HCC); Primary | | | | [address] | [facility] [place] | biliary cirrhosis | | | | for Health and | [address] | (HCC) | | | | [place] [address] | [phone] | | | | | [facility] [place] | | | | | | [address] | | | | | | [phone] | | | +--------+---------+ + + + [...] 2019 | Visit | | [address] | | | | | | [place], [place] | | | | | | [address] | | | | | | [phone] | | | | | | | [...] [facility] - | [address] | [place], [place] | | | [place] | 120 | [address] | | + + + + + [...] + + | HEMOGLOBIN | 14.6 | 12.1999 - 15 | [facility] | [...] | | | [place] | [address] | [address] | | + + + + + [...] | [facility] - | [address] | [place] | | | [place] | [address] | [address] | | + + + + + [...]
--- OUTSIDE RECORDS SUMMARY | ~2019-12-22 | XMS | Encounter Summary ---
Demographics + + + | Address | [address] | | | [place] [address] | + + + | Home Phone [...] + | Roxana Bo | ECON | [address] | | | | | [place] | | | | | [address] | | + + + + + Care Team Providers + +------+ + | Care Fabricator Industrial Furnace Name | Role | Phone | + [...] [address] | [address] | (01/02/2011) | | | | [address] | [place], [place] | | | | | for Health and | [address] | | | | | [facility], [facility] 2 | [phone] | | | | | [place], [place] | | | | | | [address] | | | | | | [phone] | | | +--------+ + + + [...] Rogers | | | | | | [place], [place] | | | | | | [address] | | | | | | [phone] | | | | | | | [...] [facility] - | [address] | [place], [place] | | | [place] | [address] | [address] | | + + + + + [...] | | | [place] | 120 | [address] | | + + + + + documented in this encounter Visit Diagnoses Not on filedocumented in this encounter"
--- OUTSIDE RECORDS SUMMARY | ~2019-12-22 | XMS | Encounter Summary ---
Demographics + + + | Address | [address] | | | [place] [address] | + + + | Home Phone [...] + | Roxana Bo | ECON | [address] | | | | | [place] | | | | | [address] | | + + + + + Care Team Providers + +------+ + | Care Bail Bondsman Name | Role | Phone | + [...] | | [address] [facility] [address] [facility] | [place], [place] | | | | | for Health and | [address] | | | | | [facility], [facility] 2 | [phone] | | | | | [place], [place] | | | | | | [address] | | | | | | [phone] | | | +--------+ + + + [...] Rogers | | | | | | [place], [place] | | | | | | [address] | | | | | | [phone] | | | | | | | | +--------+---------+ + + + documented as of this encounter Visit Diagnoses Not on filedocumented in this encounter"
--- OUTSIDE RECORDS SUMMARY | ~2019-12-22 | XMS | Encounter Summary ---
Demographics + + + | Address | [address] | | | [place] [...] + | Roxana Bo | ECON | [address] | | | | | [place] | | | | | [address] | | + + + + + Care Team Providers + +------+ + | Care Marketing Program Coordinator Name | Role | Phone | + +------+ + | Ventura Carrasquillo MD | PCP | | + +------+ + Reason for Visit + + + | Reason | Comments | + + + | Blood Test Results | [facility] 01/02/15 Lab Results [...] | | 2014 | | Center at [facility] [address] | [address] | ([facility] | | | | [address] | [place], [place] | 01/02/15 Lab Results | | | | for Health and | [address] | (AST, alk phos, | | | | Healing, Building 2 | [phone] | bili, protein, | | | | [place], [place] | | albumin, bili, ALT, | | | | [address] | | CBC)) | | | | [phone] | | | +--------+ + + + [...] Rogers | | | | | | [place], [place] | | | | | | [address] | | | | | | [phone] | | | | | | | | +--------+---------+ + + + documented as of this encounter Visit Diagnoses Not on filedocumented in this encounter"
--- OUTSIDE RECORDS SUMMARY | ~2019-12-22 | XMS | Encounter Summary ---
Demographics + + + | Address | [address] | | | [place] [address] | + + + | Home Phone [...] + | Roxana Bo | ECON | [address] | | | | | [place] | | | | | [address] | | + + + + + Care Team Providers + +------+ + | Care Insurance Claims Specialist Name | Role | Phone | [...] | | 2012 | | Center at [facility] [address] | [address] | Medication | | | | [address] | [place], [place] | management ([facility]) | | | | for Health and | [address] | | | | | [facility], [facility] 2 | [phone] | | | | | [place], [place] | | | | | | [address] | | | | | | [phone] | | | +--------+ + + + [...] Rogers | | | | | | [place], [place] | | | | | | [address] | | | | | | [phone] | | | | | | | | +--------+---------+ + + + documented as of this encounter Visit Diagnoses Not on filedocumented in this encounter"
--- OUTSIDE RECORDS SUMMARY | ~2019-12-22 | XMS | Encounter Summary ---
Demographics + + + | Address | [address] | | | [place] [address] | + + + | Home Phone | | + + + | Preferred Language | Unknown | + + + | Marital Status | | + + + | Church Affiliation | CAT | + + + [...] + | Roxana Bo | ECON | [address] | | | | | [place] | | | | | [address] | | + + + + + Care Team Providers + +------+ + | Care Men'S Swim Coach Name | Role | Phone | + +------+ + | Ventura Carrasquillo MD | PCP | | + +------+ + Reason for Visit + + + | Reason | Comments | + + + | Refill Request | Azathioprine. | + + + Encounter Details +--------+--------+ + + + | Date | Type | Department | Care Team | Description | +--------+--------+ + + + | 04/04/ | Refill | Digestive Health | Lake Dennis MD | Refill Request | | 2013 | | Center at [facility] [address] | [address] | (Azathioprine.) | | | | [address] | [place], [place] | | | | | for Health and | [address] | | | | | [facility] 2 | [phone] | | | | | [place], [place] | | | | | | [address] | | | | | | [phone] | | | +--------+--------+ + + + [...] Rogers | | | | | | [place], [place] | | | | | | [address] | | | | | | [phone] | | | | | | | | +--------+---------+ + + + documented as of this encounter Visit Diagnoses Not on filedocumented in this encounter"
--- OUTSIDE RECORDS SUMMARY | ~2019-12-22 | XMS | Encounter Summary ---
Demographics + + + | Address | [address] | | | [place] [address] | + + + | Home Phone [...] + | Roxana Bo | ECON | [address] | | | | | [place] | | | | | [address] | | + + + + + Care Team Providers + +------+ + | Care Radiation Officer Name | Role | Phone | [...] Dennis MD | Refill Request | | 2012 | | Center at [facility] [address] | [address] | (URSODIOL) | | | | [address] | [place], [place] | | | | | for Health and | [address] | | | | | [place] [address] | [phone] | | | | | [place], [place] | | | | | | [address] | | | | | | [phone] | | | +--------+--------+ + + + [...] Rogers | | | | | | [place], [place] | | | | | | [address] | | | | | | [phone] | | | | | | | | +--------+---------+ + + + documented as of this encounter Visit Diagnoses Not on filedocumented in this encounter"
--- OUTSIDE RECORDS SUMMARY | ~2019-12-22 | XMS | Encounter Summary ---
Demographics + + + | Address | [address] | | | [place] [address] | + + + | Home Phone [...] + | Roxana Bo | ECON | [address] | | | | | [place] | | | | | [address] | | + + + + + Care Team Providers + +------+ + | Care Shearing Supervisor Name | Role | Phone | + +------+ + | Ventura Carrasquillo MD | PCP | | + +------+ + Encounter Details +--------+ + + + + | Date | Type | Department | Care Team | Description | +--------+ + + + + | 09/01/ | MyChart | Digestive Health | Lake Dennis MD | RE: Blood Test | | 2019 | Encounter | Center at [facility] [address] | [address] | Results | | | | [address] | [place], [place] | | | | | for Health and | [address] | | | | | Healing, Building 2 | [phone] | | | | | [facility] [place] | | | | | | [address] | | | | | | [phone] | | | +--------+ + + + [...] Rogers | | | | | | [place], [place] | | | | | | [address] | | | | | | [phone] | | | | | | | | +--------+---------+ + + + documented as of this encounter Procedures + +--------+ + + + | Procedure Name | Priori | Date/Time | Associated Diagnosis | Comments | | | ty | | | | + +--------+ + + + | COMPLETE METABOLIC | Routin | 08/31/2018 | | Results for this | | SET | e | | | procedure are in the | | (NA,K,CL,CO2,BUN,CRE | | | | results section. | | AT,GLUC,CA,AST,ALT,B | | | | | | JONH TOTAL,ALK | | | | | | PHOS,ALB,PROT TOTAL) | | | | | + +--------+ + + + | CBC ONLY | Routin | 08/31/2018 | | Results for this | | | e | | | procedure are in the | | | | | | results section. | + +--------+ + + + documented in this encounter Results COMPLETE METABOLIC SET (NA,K,CL,CO2,BUN,CREAT,GLUC,CA,AST,ALT,BILI TOTAL,ALK PHOS,ALB,PROT TOTAL) (08/31/2018) + +---------+ + + + | Component [...] + + + | ALK PHOS | 188 (H) | U/L | [facility] | | [...] + + | [facility] - | [address] | [place], [place] | [phone] | | [place] | | | | + + + + + CBC ONLY (08/31/2018) + +-------+ + + + | Component [...] +-------+ + + + | HEMOGLOBIN | 140 | g/dL | [facility] | | | | | | LAB - | | | | | | [place] | | + +-------+ + + + | HEMATOCRIT | 42.4 | % | [facility] | | | | | | LAB - | | | | | | [place] | | + +-------+ + + + | PLATELET | 336 | K/cu mm | [facility] | | [address] | [place], [place] | [phone] | | [place] | | | | + + + + + documented in this encounter Visit Diagnoses Not on filedocumented in this encounter"
--- OUTSIDE RECORDS SUMMARY | ~2019-12-22 | XMS | Encounter Summary ---
Demographics + + + | Address | [address] | | | [place] [address] | + + + | Home Phone [...] + | Roxana Bo | ECON | [address] | | | | | [place] | | | | | [address] | | + + + + + Care Team Providers + +------+ + | Care Hr Coordinator Name | Role | Phone | + +------+ + | Ventura Carrasquillo MD | PCP | | + +------+ + Encounter Details +--------+--------+ + + + | Date | Type | Department | Care Team | Description | +--------+--------+ + + + | 03/07/ | Refill | Digestive Health | Lake Dennis MD | | | 2009 | | [place] at [facility] [address] | [address] | | | | [address] | [facility] [place] | | | | | for Health and | [address] | | | | | Healing, Building 2 | [phone] | | | | | [place], [place] | | | | | | [address] | | | | | | [phone] | | | +--------+--------+ + + + [...] [place] | | | | | | [address] | | | | | | [phone] | | | | | | | | +--------+---------+ + + + documented as of this encounter Visit Diagnoses Not on filedocumented in this encounter"
--- OUTSIDE RECORDS SUMMARY | ~2019-12-22 | XMS | Encounter Summary ---
Demographics + + + | Address | [address] | | | [place] [address] | + + + | Home Phone | | + + + | Preferred Language | Unknown | + + + | Marital Status | Unknown | + + + | Evangelical Affiliation | Unknown | + + + | Race | Unknown | + + + | Ethnic Group | Unknown | + + + Author + + + | Author | [facility] | | | and [place] | + + + | Organization | [facility] | | | and [place] | + + + | Address | Unknown | + + + | Phone | Unavailable | + + + Care Team Providers + +------+ + | Care Optical Element Coater Name | Role | Phone | + +------+ + PCP | Unavailable | + +------+ + Encounter Details +--------+ + + + + | Date | Type | Department | Care Team | Description | +--------+ + + + + | 12/20/ | Hospital | [facility] | | | | 1994 | Encounter | [facility] | | | | | | CENTER [address] | | | | | | [place], [place] | | | | | | [address] | | | | | | [phone] | | | +--------+ + + + [...]
--- OUTSIDE RECORDS SUMMARY | ~2019-12-22 | XMS | Encounter Summary ---
Demographics + + + | Address | [address] | | | [place] [address] | + + + | Home Phone [...] + | Roxana Bo | ECON | [address] | | | | | [place] | | | | | [address] | | + + + + + Care Team Providers + +------+ + | Care Steel Pickler Name | Role | Phone | + +------+ + | Ventura Carrasquillo MD | PCP | | + +------+ + Encounter Details +--------+ + + + + | Date | Type | Department | Care Team | Description | +--------+ + + + + | 04/07/ | Abstract | Digestive Health | Lake Dennis MD | | | 2010 | | [place] [address] [address] | [address] | | | | [address] | [facility] [place] | | | | | for Health and | [address] | | | | | [facility], Building 2 | [phone] | | | | | [place], [place] | | | | | | [address] | | | | | | [phone] | | | +--------+ + + + [...] Rogers | | | | | | [place] | | | | | | [address] | | | | | | [phone] | | | | | | | | +--------+---------+ + + + documented as of this encounter Visit Diagnoses Not on filedocumented in this encounter"
--- OUTSIDE RECORDS SUMMARY | ~2019-12-22 | XMS | Encounter Summary ---
Demographics + + + | Address | [address] | | | [place] [address] | + + + | Home Phone [...] + | Roxana Bo | ECON | [address] | | | | | [place] | | | | | [address] | | + + + + + Care Team Providers + +------+ + | Care Salmon Gillnet Vessel Operator Name | Role | Phone | [...] | | [address] | [facility] [place] | | | | | for Health and | [address] | | | | | Healing, Building [address] | [phone] | | | | | [place], [place] | | | | | | [address] | | | | | | [phone] | | | +--------+ + + + [...] [place] | | | | | | [address] | | | | | | [phone] | | | | | | | | +--------+---------+ + + + documented as of this encounter Visit Diagnoses Not on filedocumented in this encounter"
--- OUTSIDE RECORDS SUMMARY | ~2019-12-22 | XMS | Encounter Summary ---
Demographics + + + | Address | [address] | | | [place] [address] | + + + | Home Phone [...] + | Roxana Bo | ECON | [address] | | | | | [place] | | | | | [address] | | + + + + + Care Team Providers + +------+ + | Care Screedman Name | Role | Phone | + [...] | 2015 | Encounter | Center at [facility] [address] | [address] | question | | | | [address] | [facility] [place] | | | | | for Health and | [address] | | | | | Healing, Building 2 | [phone] | | | | | [place], [place] | | | | | | [address] | | | | | | [phone] | | | +--------+ + + + [...] [place] | | | | | | [address] | | | | | | [phone] | | | | | | | | +--------+---------+ + + + documented as of this encounter Visit Diagnoses Not on filedocumented in this encounter"
--- OUTSIDE RECORDS SUMMARY | ~2019-12-22 | XMS | Encounter Summary ---
Demographics + + + | Address | [address] | | | [place] [address] | + + + | Home Phone [...] + | Roxana Bo | ECON | [address] | | | | | [place] | | | | | [address] | | + + + + + Care Team Providers + +------+ + | Care Personal Computer Network Engineer Name | Role | Phone | [...] | | | Procedures | FAMILY | [place], [place] | | | | | CONSULT TO | MEDICINE | [address] | | | | | HEPATOLOGY | [address] | Phone: | | | | | liver bx | [address] | [phone] | | | | | | [place], | Fax: | | | | | | [place] [address] | [phone] | | | | | | Phone: | | | | | | | [phone] | | | | | | | Fax: | | | | | | | [phone] | | +--------+ + + + + + Encounter Details +--------+---------+ + + + | Date | Type | Department | Care Team | Description | +--------+---------+ + + + | 12/07/ | Office | Digestive Health | Lake Ontiveros MD | Autoimmune hepatitis | | 2010 | Visit | Center at [facility] [address] | [address] | (HCC); Primary | | | | [address] | [facility] [place] | biliary cirrhosis | | | | for Health and | [address] | (HCC) | | | | [place] [address] | [phone] | | | | | [place], [place] | | | | | | [address] | | | | | | [phone] | | | +--------+---------+ + + + [...] 1 Applicator to affected area once daily. Frojquinnsn-Xcuyfffrv-Vfy C-Mn (GLUCOSAMINE CHONDROITIN MAXSTR) 500-400 mg Oral Capsule Take 2 Tabs by mouth once daily. hailveaaczwy-ddiofuv-btwtedw-folic acid chewable 200-0.4 mg Oral Tablet, Chewable Take 2 Tabs by mouth once daily. smonxlmssuqy-ffjgmsl-niwj-lutein (CENTRUM SILVER ULTRA WOMEN'S) Oral Tablet Take [...] Plan 1) cont current meds 2) labs e8llhoyy: CMP, CBC, plts, diff, INR 3) RTC [...] Rogers | | | | | | [place], [place] | | | | | | [address] | | | | | | [phone] | | | | | | | | +--------+---------+ + + + documented as of this encounter Visit Diagnoses + + | Diagnosis | + + | Autoimmune hepatitis (HCC) Autoimmune hepatitis | + + | Primary biliary cirrhosis (HCC) Biliary cirrhosis | + + documented in this encounter
--- OUTSIDE RECORDS SUMMARY | ~2019-12-22 | XMS | Encounter Summary ---
Demographics + + + | Address | [address] | | | [place] [address] | + + + | Home Phone [...] + | Roxana Bo | ECON | [address] | | | | | [place] | | | | | [address] | | + + + + + Care Team Providers + +------+ + | Care Project Control Manager Name | Role | Phone | + +------+ + | Ventura Carrasquillo MD | PCP | | + +------+ + Encounter Details +--------+ + + + + | Date | Type | Department | Care Team | Description | +--------+ + + + + | 04/07/ | Documentati | Digestive Health | Clinic, | | | 2010 | on | Center at [facility] [address] | Gastroenterology | | | | | [address] [facility] | | | | | | for Health and | | | | | | Healing, Building [address] | | | | | | [place], [place] | | | | | | [address] | | | | | | [phone] | | | +--------+ + + + [...] [place] | | | | | | [address] | | | | | | [phone] | | | | | | | | +--------+---------+ + + + documented as of this encounter Visit Diagnoses Not on filedocumented in this encounter"
--- OUTSIDE RECORDS SUMMARY | ~2019-12-22 | XMS | Encounter Summary ---
Demographics + + + | Address | [address] | | | [place] [address] | + + + | Home Phone [...] + | Roxana Bo | ECON | [address] | | | | | [place] | | | | | [address] | | + + + + + Care Team Providers + +------+ + | Care Telecommunication Tower Technician Name | Role | Phone | [...] | +--------+ + + + + | 03/23/ | Telephone | Digestive Health | Lake Dennis MD | Lab findings, | | 2008 | | Center at [facility] [address] | [address] | teaching, guidance, | | | | [facility] | [place], [place] | and counseling; | | | | for Health and | [address] | Medication | | | | [facility], [facility] 2 | [phone] | management | | | | [place], [place] | | | | | | [address] | | | | | | [phone] | | | +--------+ + + + [...] [place] | | | | | | [place], [place] | | | | | | [address] | | | | | | [phone] | | | | | | | | +--------+---------+ + + + documented as of this encounter Visit Diagnoses Not on filedocumented in this encounter"
--- OUTSIDE RECORDS SUMMARY | ~2019-12-22 | XMS | Encounter Summary ---
Demographics + + + | Address | [address] | | | [place] [address] | + + + | Home Phone [...] + | Roxana Bo | ECON | [address] | | | | | [place] | | | | | [address] | | + + + + + Care Team Providers + +------+ + | Care Export Sales Manager Name | Role | Phone | + +------+ + | Ventura Carrasquillo MD | PCP | | + +------+ + Encounter Details +--------+ + + + + | Date | Type | Department | Care Team | Description | +--------+ + + + + | 02/08/ | MyChart | Digestive Health | Lake Dennis MD | RE: Update to | | 2011 | Encounter | Center at [facility] [address] | [address] | medication list | | | | [address] | [place], [place] | | | | | for Health and | [address] | | | | | [facility], Building 2 | [phone] | | | | | [place], [place] | | | | | | [address] | | | | | | [phone] | | | +--------+ + + + [...] Rogers | | | | | | [place], [place] | | | | | | [address] | | | | | | [phone] | | | | | | | | +--------+---------+ + + + documented as of this encounter Visit Diagnoses Not on filedocumented in this encounter"
--- OUTSIDE RECORDS SUMMARY | ~2019-12-22 | XMS | Encounter Summary ---
Demographics + + + | Address | [address] | | | [place] [address] | + + + | Home Phone [...] + | Roxana Bo | ECON | [address] | | | | | [place] | | | | | [address] | | + + + + + Care Team Providers + +------+ + | Care Varnish Dipper Name | Role | Phone | + +------+ + | Ventura Carrasquillo MD | PCP | | + +------+ + Encounter Details +--------+ + + + + | Date | Type | Department | Care Team | Description | +--------+ + + + + | 02/19/ | MyChart | Digestive Health | Lake Dennis MD | RE: Prescriptions | | 2019 | Encounter | Center at [facility] [address] | [address] | | | | | [address] | [place], [place] | | | | | for Health and | [address] | | | | | Healing, Building [address] | [phone] | | | | | [place], [place] | | | | | | [address] | | | | | | [phone] | | | +--------+ + + + [...] Rogers | | | | | | [place], [place] | | | | | | [address] | | | | | | [phone] | | | | | | | | +--------+---------+ + + + + +------+--------+ + + | Name | Type | Priori | Associated Diagnoses | Order Schedule | | | | ty | | | + +------+--------+ + + | COMPLETE METABOLIC | Lab | Routin | Autoimmune | Every 16 weeks for 3 | | SET | | e | hepatitis (HCC) | Occurrences | | (NA,K,CL,CO2,BUN,CRE | | | Primary biliary | starting 03/07/2019 | | AT,GLUC,CA,AST,ALT,B | | | cholangitis (HCC) | until 04/06/2020 | | JONH TOTAL,ALK | | | | | | PHOS,ALB,PROT TOTAL) | | | | | + +------+--------+ + + | CBC, WITH | Lab | Routin | Autoimmune | Every 16 weeks for 3 | | DIFFERENTIAL | | e | hepatitis (HCC) | Occurrences | | | | | Primary biliary | starting 03/07/2019 | | | | | cholangitis (HCC) | until 04/06/2020 | + +------+--------+ + + documented as of this encounter Visit Diagnoses + + | Diagnosis | + + | Autoimmune hepatitis (HCC) - Primary Autoimmune hepatitis | + + | Primary biliary cholangitis (HCC) | + + documented in this encounter"
--- OUTSIDE RECORDS SUMMARY | ~2019-12-22 | XMS | Encounter Summary ---
Demographics + + + | Address | [address] | | | [place] [address] | + + + | Home Phone [...] + | Roxana Bo | ECON | [address] | | | | | [place] | | | | | [address] | | + + + + + Care Team Providers + +------+ + | Care Website Project Manager Name | Role | Phone | + +------+ + | Ventura Carrasquillo MD | PCP | | + +------+ + Encounter Details +--------+ + + + + | Date | Type | Department | Care Team | Description | +--------+ + + + + | 04/05/ | MyChart | Digestive Health | Lake Dennis MD | RE: Lab Results | | 2013 | Encounter | Center at [facility] [address] | [address] | | | | | [address] | [place], [place] | | | | | for Health and | [address] | | | | | Healing, Building [address] | [phone] | | | | | [place], [place] | | | | | | [address] | | | | | | [phone] | | | +--------+ + + + [...] [place] | | | | | | [place] | | | | | | [address] | | | | | | [phone] | | | | | | | | +--------+---------+ + + + documented as of this encounter Visit Diagnoses Not on filedocumented in this encounter"
--- OUTSIDE RECORDS SUMMARY | ~2019-12-22 | XMS | Encounter Summary ---
Demographics + + + | Address | [address] | | | [place] [address] | + + + | Home Phone [...] + | Roxana Bo | ECON | [address] | | | | | [place] | | | | | [address] | | + + + + + Care Team Providers + +------+ + | Care Concrete Conveyor Operator Name | Role | Phone | [...] | | [address] | [place], [place] | | | | | for Health and | [address] | | | | | [facility] 2 | [phone] | | | | | [place], [place] | | | | | | [address] | | | | | | [phone] | | | +--------+ + + + [...] [place] | | | | | | [place], [place] | | | | | | [address] | | | | | | [phone] | | | | | | | | +--------+---------+ + + + documented as of this encounter Visit Diagnoses Not on filedocumented in this encounter"
--- OUTSIDE RECORDS SUMMARY | ~2019-12-22 | XMS | Encounter Summary ---
Demographics + + + | Address | [address] | | | [place] [address] | + + + | Home Phone [...] + | Roxana Bo | ECON | [address] | | | | | [place] | | | | | [address] | | + + + + + Care Team Providers + +------+ + | Care Gate Manager Name | Role | Phone | [...] Medical Records | | 2013 | | Center at [facility] [address] | [address] [facility] | Review ([facility] | | | | [address] | [place], [place] | OUTSIDE LAB: AST, | | | | for Health and | [address] | alkaline, bilirubin, | | | | [facility], Building 2 | [phone] | protein, albumin, | | | | [place], [place] | | ALT, CBC 04/03/2014) | | | | [address] | | | | | | [phone] | | | +--------+ + + + [...] [place] | | | | | | [place], [place] | | | | | | [address] | | | | | | [phone] | | | | | | | | +--------+---------+ + + + documented as of this encounter Visit Diagnoses Not on filedocumented in this encounter"
--- OUTSIDE RECORDS SUMMARY | ~2019-12-22 | XMS | Encounter Summary ---
Demographics + + + | Address | [address] | | | [place] [address] | + + + | Home Phone [...] + | Roxana Bo | ECON | [address] | | | | | [place] | | | | | [address] | | + + + + + Care Team Providers + +------+ + | Care Air Transport Professionals Name | Role | Phone | + [...] | 2010 | on | Center at [facility] [address] | [address] | | | | | [address] | | | | | | for Health and | [address] | | | | | [facility], [facility] 2 | [phone] | | | | | | | | | | | [address] | | | | | | [phone] | | | +--------+ + + + [...] [place] | | | | | | | | | | | | [address] | | | | | | [phone] | | | | | | | [...] [address] | [place], [place] | [phone] | | [place] | | | | [...] [address] | [place], [place] | [phone] | | [place] | | | | + + + + + | [facility] | | [place], [place] | | | [place] | | | | + + + + + documented in this encounter Visit Diagnoses Not on filedocumented in this encounter"
--- OUTSIDE RECORDS SUMMARY | ~2019-12-22 | XMS | Encounter Summary ---
Demographics + + + | Address | [address] | | | [place] [address] | + + + | Home Phone [...] + | Roxana Bo | ECON | [address] | | | | | [place] | | | | | [address] | | + + + + + Care Team Providers + +------+ + | Care Dryer Operator Name | Role | Phone | [...] | | | Procedures | FAMILY | [place], [place] | | | | | CONSULT TO | MEDICINE | [address] | | | | | HEPATOLOGY | [address] | Phone: | | | | | liver bx | [address] | [phone] | | | | | | [place], | Fax: | | | | | | [place] [address] | [phone] | | | | | | Phone: | | | | | | | [phone] | | | | | | | Fax: | | | | | | | [phone] | | +--------+ + + + + + Encounter Details +--------+---------+ + + + | Date | Type | Department | Care Team | Description | +--------+---------+ + + + | 03/28/ | Office | Digestive Health | Lake Ontiveros MD | Autoimmune hepatitis | | 2010 | Visit | Center at [facility] [address] | [address] | (HCC); Primary | | | | [address] | [facility] [place] | biliary cirrhosis | | | | for Health and | [address] | (HCC) | | | | [place] [address] | [phone] | | | | | [facility] [place] | | | | | | [address] | | | | | | [phone] | | | +--------+---------+ + + + [...] 1 Applicator to affected area once daily. Yvqizkndgbs-Gxfiqvbfn-Jri C-Mn (GLUCOSAMINE CHONDROITIN MAXSTR) 500-400 mg Oral Capsule Take 2 Tabs by mouth once daily. bhyldmqssyjo-hupbadp-zympyws-folic acid chewable 200-0.4 mg Oral Tablet, Chewable Take 2 Tabs by mouth once daily. kivbhvjxrgpc-gfcybsq-tgcz-lutein (CENTRUM SILVER ULTRA WOMEN'S) Oral Tablet Take [...] day 2) CMP, CBC, plts, diff, INR r0ccbzaq 3) RTC in 6 months Counseling Time: [...] [place] | | | | | | [place], [place] | | | | | | [address] | | | | | | [phone] | | | | | | | | +--------+---------+ + + + documented as of this encounter Visit Diagnoses + + | Diagnosis | + + | Autoimmune hepatitis (HCC) Autoimmune hepatitis | + + | Primary biliary cirrhosis (HCC) Biliary cirrhosis | + + documented in this encounter
--- OUTSIDE RECORDS SUMMARY | ~2019-12-22 | XMS | Encounter Summary ---
Demographics + + + | Address | [address] | | | [place] [address] | + + + | Home Phone [...] + | Roxana Bo | ECON | [address] | | | | | [place] | | | | | [address] | | + + + + + Care Team Providers + +------+ + | Care Systems Analyst Developer Name | Role | Phone | + +------+ + | Ventura Carrasquillo MD | PCP | | + +------+ + Encounter Details +--------+ + + + + | Date | Type | Department | Care Team | Description | +--------+ + + + + | 12/13/ | MyChart | Digestive Health | Lake eDnnis MD | RE: Prescription | | 2014 | Encounter | Center at [facility] [address] | [address] | info | | | | [address] | [place], [place] | | | | | for Health and | [address] | | | | | Healing, Building 2 | [phone] | | | | | [place], [place] | | | | | | [address] | | | | | | [phone] | | | +--------+ + + + [...] [place] | | | | | | [address] | | | | | | [phone] | | | | | | | | +--------+---------+ + + + documented as of this encounter Visit Diagnoses Not on filedocumented in this encounter"
--- OUTSIDE RECORDS SUMMARY | ~2019-12-22 | XMS | Encounter Summary ---
Demographics + + + | Address | [address] | | | [place] [address] | + + + | Home Phone [...] + | Roxana Bo | ECON | [address] | | | | | [place] | | | | | [address] | | + + + + + Care Team Providers + +------+ + | Care Welding Machine Tender Name | Role | Phone [...] | | | | | liver | [place], [place] | Physician's | | | | | function | [address] | [place], | | | | | study | Phone: | 4th Floor | | | | | Procedures | [phone] | [place], [place] | | | | | US BIOPSY | Fax: | [address] | | | | | LIVER W/ US | [phone] | Phone: | | | | | & GUIDANCE | | [phone] | | | | | | | Fax: | | | | | | | [phone] | +--------+--------+ + + + + Reason [...] | | | Procedures | FAMILY | [place], [place] | | | | | CONSULT TO | MEDICINE | [address] | | | | | HEPATOLOGY | [address] | Phone: | | | | | liver bx | [address] | [phone] | | | | | | [place], | Fax: | | | | | | [place] [address] | [phone] | | | | | | Phone: | | | | | | | [phone] | | | | | | | Fax: | | | | | | | [phone] | | +--------+ + + + + + Encounter Details +--------+---------+ + + + | Date | Type | Department | Care Team | Description | +--------+---------+ + + + | 02/14/ | Office | Digestive Health | Lake Dennis MD | Nonspecific Abnormal | | 2009 | Visit | [facility] [address] | [address] | Results of Liver | | | | [address] | [place], [place] | Function Study | | | | for Health and | [address] | (Primary Dx) | | | | [facility] [address] | [phone] | | | | | [place], [place] | | | | | | [address] | | | | | | [phone] | | | +--------+---------+ + + + [...] office note has been dictated. CSN #: [id number] documented in this encoun ter Plan of Treatment +--------+---------+ + + + | Date | Type | Specialty | Care Team | Description | +--------+---------+ + + + | 01/26/ | Office | Hepatology | Lake Dennis MD | | | 2020 | Visit | | [address] | | | | | | [place], [place] | | | | | | [address] | | | | | | [phone] | | | | | | | [...] + + | Protein Electrophoresis, Serum Reference Range | [facility] | | Change effective 05/30/08 [facility] ([facility]) | DEPARTMENT OF | | [place] [address] [facility] | PATHOLOGY | | [place] [address] | | + + + + + + + + | Performing | Address | City/State/Zipcode | Phone Number | | Organization | | | | + + + + + | [facility] | [address] | [place] [address] | | | PATHOLOGY | [address] [...] | NDNA Ab Titer effective 07/11/08. [facility] ([facility] | DEPARTMENT OF | | Lab) [facility] [place] [address] [address] | PATHOLOGY | | [place] [address] | | | [facility] ([facility]) [facility] [address] | | | [address] [place] [address] | | | | | + + + + + + + + | Performing | Address | City/State/Zipcode | Phone Number | | Organization | | | | + + + + + | [facility] | [address] | [place] [address] | | | PATHOLOGY | [address] [...] At | + + + | [facility] ([facility] [address] [facility]) [place] | [facility] | | [place] [address] [address] [facility] | DEPARTMENT OF | | [place], [place] [address] | PATHOLOGY | + + + + + + + + | Performing | Address | City/State/Zipcode | Phone Number | | Organization | | | | + + + + + | [facility] DEPARTMENT OF | [address] | [place] [address] | | | PATHOLOGY | [address] [...] 1.00Comment: | 0.98 - 1.20 INR | [facility] | | | | PT INR Therapeutic | | DEPARTMENT | | | | ranges for full | | OF | | | | anticoagulation: | | PATHOLOGY | | | | INR for | | | | | | Venous Thromboembolism | | | | | | | | | | | | (2.0-3.0) INR | | | | | | INR for most | | | | | | patients with mech. | | | | | | valves [...] | + + + + + | [facility] | [address] [facility] | [place] [address] | | | PATHOLOGY | [address] | | | + + + + + | [facility] DEPARTMENT OF | [facility] | [place] [address] | | | PATHOLOGY | [address] [...] | + + + + + | [facility] DEPARTMENT OF | [address] [facility] | [place] [address] | | | PATHOLOGY | [address] | | | + + + + + | [facility] DEPARTMENT OF | [address] [facility] | [place] [address] | | | PATHOLOGY | [address] [...] | + + + + + | [facility] | [address] | [place] [address] | | | PATHOLOGY | [address] | | | + + + + + | [facility] | [address] | [place] [address] | | | PATHOLOGY | [address] [...]
--- OUTSIDE RECORDS SUMMARY | ~2019-12-22 | XMS | Encounter Summary ---
Demographics + + + | Address | [address] | | | [place] [address] | + + + | Home Phone [...] + | Roxana Bo | ECON | [address] | | | | | [place] | | | | | [address] | | + + + + + Care Team Providers + +------+ + | Care Lunch Truck Driver Name | Role | Phone [...] | 2013 | Encounter | Center at [facility] | [address] | | | | | [address] | [place], [place] | | | | | for Health and | [address] | | | | | [facility], [address] 2 | [phone] | | | | | [place], [place] | | | | | | [address] | | | | | | [phone] | | | +--------+ + + + [...] [place] | | | | | | [place] | | | | | | [address] | | | | | | [phone] | | | | | | | | +--------+---------+ + + + documented as of this encounter Visit Diagnoses Not on filedocumented in this encounter"
--- OUTSIDE RECORDS SUMMARY | ~2019-12-22 | XMS | Encounter Summary ---
Demographics + + + | Address | [address] | | | [place] [address] | + + + | Home Phone | | + + + | Preferred Language | Unknown | + + + | Marital Status | | + + + | Yazidism Affiliation | CAT | + + + | Race | White | + + + | Ethnic Group | Not or | + + + Author + + + | Author | [facility] | + + + | Organization | [facility] | + + + | Address | Unknown | + + + | Phone | Unavailable | + + + Support + + + + + | Name | Relationship | Address | Phone | + + + + + | Roxana Bo | ECON | [address] | | | | | [place] | | | | | [address] | | + + + + + Care Team Providers + +------+ + | Care Pile Driver Operator Name | Role | Phone | [...] | | 2010 | | Center at [facility] [address] | [address] | teaching, guidance, | | | | [facility] | [place], [place] | and counseling; | | | | for Health and | [address] | Medication | | | | [facility], [facility] 2 | [phone] | management | | | | [place], [place] | | | | | | [address] | | | | | | [phone] | | | +--------+ + + + [...] [place] | | | | | | [address] | | | | | | [phone] | | | | | | | | +--------+---------+ + + + documented as of this encounter Visit Diagnoses Not on filedocumented in this encounter"
--- OUTSIDE RECORDS SUMMARY | ~2019-12-22 | XMS | Encounter Summary ---
Demographics + + + | Address | [address] | | | [place] [address] | + + + | Home Phone [...] + | Roxana Bo | ECON | [address] | | | | | [place] | | | | | [address] | | + + + + + Care Team Providers + +------+ + | Care Human Resource Intern Name | Role | Phone | [...] | | | biliary | REFERRING | [place], [place] | | | | | cirrhosis | PROVIDER PER | [address] | | | | | Procedures | PT | Phone: | | | | | MD | | [phone] | | | | | OFFICE/OUTPT | | Fax: | | | | | | | [phone] | | | | | VISIT,EST,LE | [...] | 2018 | Visit | Center at [facility] [address] | [address] | cholangitis (HCC) | | | | [address] | [place], [place] | (Primary Dx); | | | | for Health and | [address] | Autoimmune hepatitis | | | | [facility] 2 | [phone] | (HCC) | | | | [place], [place] | | | | | | [address] | | | | | | [phone] | | | +--------+---------+ + + + [...] 1,000 Units by mo uth once daily. uglvoqdcibfa-wrztdps-fcbm-lutein (CENTRUM SILVER ULTRA WOMEN'S) Oral Tablet Take 1 Tab by mouth once daily. [place]-3 Fatty Acids-Vitamin E (FISH OIL) 1,000 mg [...] Ave | | | | | | [place], [place] | | | | | | [address] | | | | | | [phone] | | | | | | | | +--------+---------+ + + + documented as of this encounter Visit Diagnoses + + | Diagnosis | + + | Primary biliary cholangitis (HCC) - Primary | + + | Autoimmune hepatitis (HCC) Autoimmune hepatitis | + + documented in this encounter
--- OUTSIDE RECORDS SUMMARY | ~2019-12-22 | XMS | Encounter Summary ---
Demographics + + + | Address | [address] | | | [place] [address] | + + + | Home Phone [...] + | Roxana Bo | ECON | [address] | | | | | [place] | | | | | [address] | | + + + + + Care Team Providers + +------+ + | Care Risk Reduction Counselor Name | Role | Phone | + [...] | 2013 | Encounter | Center at [facility] [address] | [address] | | | | | [address] | [place], [place] | | | | | for Health and | [address] | | | | | [facility], [address] 2 | [phone] | | | | | [place], [place] | | | | | | [address] | | | | | | [phone] | | | +--------+ + + + [...] [place] | | | | | | [address] | | | | | | [phone] | | | | | | | | +--------+---------+ + + + documented as of this encounter Visit Diagnoses Not on filedocumented in this encounter"
--- OUTSIDE RECORDS SUMMARY | ~2019-12-22 | XMS | Encounter Summary ---
Demographics + + + | Address | [address] | | | [place] [address] | + + + | Home Phone [...] + | Roxana Bo | ECON | [address] | | | | | [place] | | | | | [address] | | + + + + + Care Team Providers + +------+ + | Care Clinical Writer Name | Role | Phone | [...] | 2015 | on | Center at [facility] [address] | [address] | (Outside labs from | | | | [address] | [place], [place] | [facility] 10/02/14.) | | | | for Health and | [address] | | | | | [place] [address] | [phone] | | | | | [place], [place] | | | | | | [address] | | | | | | [phone] | | | +--------+ + + + [...] [address] | | | | | | [place], [place] | | | | | | [address] | | | | | | [phone] | | | | | | | [...] | [facility] | | [place], [place] | | | [place] | | [address] | | + +---------+ + + CBC, [...] | [facility] | | [place], [place] | | | [place] | | [address] | | + +---------+ + + documented in this encounter Visit Diagnoses Not on filedocumented in this encounter"
--- OUTSIDE RECORDS SUMMARY | ~2019-12-22 | XMS | Encounter Summary ---
Demographics + + + | Address | [address] | | | [place] [address] | + + + | Home Phone [...] + | Roxana Bo | ECON | [address] | | | | | [place] | | | | | [address] | | + + + + + Care Team Providers + +------+ + | Care Manager Programs Name | Role | Phone | + +------+ + | Ventura Carrasquillo MD | PCP | | + +------+ + Encounter Details +--------+ + + + + | Date | Type | Department | Care Team | Description | +--------+ + + + + | 09/13/ | Abstract | Digestive Health | Lake Dennis MD | | | 2019 | | [place] [facility] [address] | [address] | | | | | [address] | [facility] [place] | | | | | for Health and | [address] | | | | | Healing, Building 2 | [phone] | | | | | [place], [place] | | | | | | [address] | | | | | | [phone] | | | +--------+ + + + [...] [place] | | | | | | [address] | | | | | | [phone] | | | | | | | | +--------+---------+ + + + documented as of this encounter Visit Diagnoses Not on filedocumented in this encounter"
--- OUTSIDE RECORDS SUMMARY | ~2019-12-22 | XMS | Clinical Summary ---
Demographics + + + | Address | [address] | | | [place] [address] | + + + | Home Phone | | + + + | Preferred Language | Unknown | + + + | Marital Status | | + + + | Sikhism Affiliation | CAT | + + + | Race | White | + + + | Ethnic Group | Not or | + + + Author + + + | Author | [facility] | + + + | Organization | [facility] | + + + | Address | Unknown | + + + | Phone | Unavailable | + + + Support + + + + + | Name | Relationship | Address | Phone | + + + + + | Roxana Bo | ECON | [address] | | | | | [place] | | | | | [address] | | + + + + + Care Team Providers + +------+ + | Care Collections Specialist Name | Role | Phone | + +------+ + | Ventura Carrasquillo MD | PCP | | + +------+ + Source Comments PAULA is fully live on both [facility] and [facility] InPatient.[facility] Allergies + + + + + + [...] | | + + + +---------+------+------+-------+ | [place]-3 Fatty | Take 2 Caps by mouth [...] [place] | | | | | | [address] | | | | | | [phone] | | | | | | | [...] | | | | | | | [address] | | + +--------+ +--------+ + +--------+ | MODA MEDICARE | MODA | xxxxxxxxx | 12/03/19 | [phone] | [address] | [address] | | SUPPLEMENT | MEDICA | | 17-Pre | 4 | [phone] | | | | RE | | sent | | Amrit | | | | SUPPLE | | | | [place] [address] | | | | MENT | | [...] Person | Self | [birth year] | [address] | | | al/Fam | | 1950 | [phone] | [place] [address] | | | prasad | | | 1 (Home) | | + +--------+ +--------+ + + Advance Directives + + + + + | Type | Date Recorded | Patient | Explanation | | | | Dispatcher Service Chief | | + + + + + | Advance | | | | | Directives and | | | | | Living Will | | | | + + + + + | Power of | | | | | Client Program Manager | | | | + + + + +
--- OUTSIDE RECORDS SUMMARY | ~2019-12-22 | XMS | Encounter Summary ---
Demographics + + + | Address | [address] | | | [place] [address] | + + + | Home Phone [...] + | Roxana Bo | ECON | [address] | | | | | [place] | | | | | [address] | | + + + + + Care Team Providers + +------+ + | Care Vice President Marketing & Development Name | Role | Phone | + [...] | | 2010 | | Center at [facility] [address]85 | [address] | management | | | | [address] | [place], [place] | | | | | [facility] and | [address] | | | | | [facility], [facility] 2 | [phone] | | | | | [place], [place] | | | | | | [address] | | | | | | [phone] | | | +--------+ + + + [...] Rogers | | | | | | [place] | | | | | | [address] | | | | | | [phone] | | | | | | | | +--------+---------+ + + + documented as of this encounter Visit Diagnoses Not on filedocumented in this encounter"
--- OUTSIDE RECORDS SUMMARY | ~2019-12-22 | XMS | Encounter Summary ---
Demographics + + + | Address | [address] | | | [place] [address] | + + + | Home Phone [...] + | Roxana Bo | ECON | [address] | | | | | [place] | | | | | [address] | | + + + + + Care Team Providers + +------+ + | Care Manager Name | Role | Phone [...] | | 2013 | | Center at [facility] [address]85 | [address] | (Azathioprine.) | | | | [address] | [place], [place] | | | | | for Health and | [address] | | | | | [facility] 2 | [phone] | | | | | [place], [place] | | | | | | [address] | | | | | | [phone] | | | +--------+--------+ + + + [...] Rogers | | | | | | [place], [place] | | | | | | [address] | | | | | | [phone] | | | | | | | | +--------+---------+ + + + documented as of this encounter Visit Diagnoses Not on filedocumented in this encounter"
--- OUTSIDE RECORDS SUMMARY | ~2019-12-22 | XMS | Encounter Summary ---
Demographics + + + | Address | [address] | | | [place] [address] | + + + | Home Phone [...] + | Roxana Bo | ECON | [address] | | | | | [place] | | | | | [address] | | + + + + + Care Team Providers + +------+ + | Care Clay House Worker Name | Role | Phone | [...] | | | Procedures | FAMILY | [place], [place] | | | | | CONSULT TO | MEDICINE | [address] | | | | | HEPATOLOGY | [address] | Phone: | | | | | liver bx | [address] | [phone] | | | | | | [place], | Fax: | | | | | | [place] [address] | [phone] | | | | | | Phone: | | | | | | | [phone] | | | | | | | Fax: | | | | | | | [phone] | | +--------+ + + + + + Encounter Details +--------+---------+ + + + | Date | Type | Department | Care Team | Description | +--------+---------+ + + + | 10/03/ | Office | Digestive Health | Lake Dennis MD | Autoimmune hepatitis | | 2012 | Visit | Center at [facility] [address]85 | [address] | (HCC); Primary | | | | [address] | [facility] [place] | biliary cirrhosis | | | | for Health and | [address] | (HCC) | | | | [place] [address] | [phone] | | | | | [facility] [place] | | | | | | [address] | | | | | | [phone] | | | +--------+---------+ + + + [...] daily. Administer after meals. 30 Tab 11 gkkyhfvzwejj-tymctaj-aehqsau-folic acid chewable 200-0.4 mg Oral Tablet, Chewable Take 2 Tabs by mouth once daily. hdnuiugmqldi-peoyzmk-vrot-lutein (CENTRUM SILVER ULTRA WOMEN'S) Oral Tablet Take [...] and formulated with the gastroenterology attending of [facility], Dr Marci euceda, who agrees with the above assessment and recommendations. Roddy Rivera MD Fellow, Gastroenterology/Hepatology pgr [id number] documented in this encounter Plan of Treatment +--------+---------+ + + + | Date | Type | Specialty | Care Team | Description | +--------+---------+ + + + | 01/26/ | Office | Hepatology | Lake Dennis MD | | | 2020 | Visit | | [address] | | | | | | [place], [place] | | | | | | [address] | | | | | | [phone] | | | | | | | | +--------+---------+ + + + documented as of this encounter Visit Diagnoses + + | Diagnosis | + + | Autoimmune hepatitis (HCC) Autoimmune hepatitis | + + | Primary biliary cirrhosis (HCC) Biliary cirrhosis | + + documented in this encounter
--- OUTSIDE RECORDS SUMMARY | ~2019-12-22 | XMS | Encounter Summary ---
Demographics + + + | Address | [address] | | | [place] [address] | + + + | Home Phone [...] + | Roxana Bo | ECON | [address] | | | | | [place] | | | | | [address] | | + + + + + Care Team Providers + +------+ + | Care Nailing Machine Feeder Name | Role | Phone [...] | 2017 | Encounter | Center at [facility] [address] | [address] | request | | | | [address] | [place], [place] | | | | | for Health and | [address] | | | | | Healing, Building 2 | [phone] | | | | | [place], [place] | | | | | | [address] | | | | | | [phone] | | | +--------+ + + + [...] Rogers | | | | | | [place], [place] | | | | | | [address] | | | | | | [phone] | | | | | | | | +--------+---------+ + + + documented as of this encounter Visit Diagnoses Not on filedocumented in this encounter"
--- OUTSIDE RECORDS SUMMARY | ~2019-12-22 | XMS | Encounter Summary ---
Demographics + + + | Address | [address] | | | [place] [address] | + + + | Home Phone [...] + | Roxana Bo | ECON | [address] | | | | | [place] | | | | | [address] | | + + + + + Care Team Providers + +------+ + | Care Supervisor Type Disk Quality Control Name | Role | Phone | + +------+ + | Ventura Carrasquillo MD | PCP | | + +------+ + Encounter Details +--------+ + + + + | Date | Type | Department | Care Team | Description | +--------+ + + + + | 01/02/ | Documentati | Digestive Health | Lake Dennis MD | | | 2009 | on | Center at [facility] [address] | [address] | | | | | [address] | [place], [place] | | | | | for Health and | [address] | | | | | [facility], [facility] 2 | [phone] | | | | | [place], [place] | | | | | | [address] | | | | | | [phone] | | | +--------+ + + + [...] [place] | | | | | | [address] | | | | | | [phone] | | | | | | | [...] [address] | [place], [place] | [phone] | | [place] | | | | + + + + + | [facility] - | | [place], [place] | | | [place] | | [...] [address] | [place], [place] | [phone] | | [place] | | | | + + + + + | [facility] - | | [place], [place] | | | [place] | | [...] + + | [facility] - | [address] | [place], [place] | [phone] | | [place] | | | | + + + + + | [facility] - | | [place], [place] | | | [place] | | | | + + + + + documented in this encounter Visit Diagnoses Not on filedocumented in this encounter"
--- OUTSIDE RECORDS SUMMARY | ~2019-12-22 | XMS | Encounter Summary ---
Demographics + + + | Address | [address] | | | [place] [address] | + + + | Home Phone [...] + | Roxana Bo | ECON | [address] | | | | | [place] | | | | | [address] | | + + + + + Care Team Providers + +------+ + | Care Burglar Alarm Installer Name | Role | Phone | [...] | 2017 | Encounter | Center at [facility] [address] | [address] | Prescription Update | | | | [address] | [place], [place] | | | | | for Health and | [address] | | | | | Healing, Building 2 | [phone] | | | | | [place], [place] | | | | | | [address] | | | | | | [phone] | | | +--------+ + + + [...] [place] | | | | | | [address] | | | | | | [phone] | | | | | | | | +--------+---------+ + + + documented as of this encounter Visit Diagnoses Not on filedocumented in this encounter"
--- OUTSIDE RECORDS SUMMARY | ~2019-12-22 | XMS | Encounter Summary ---
Demographics + + + | Address | [address] | | | [place] [address] | + + + | Home Phone [...] + | Roxana Bo | ECON | [address] | | | | | [place] | | | | | [address] | | + + + + + Care Team Providers + +------+ + | Care Finisher Denture Name | Role | Phone | + +------+ + | Ventura Carrasquillo MD | PCP | | + +------+ + Encounter Details +--------+ + + + + | Date | Type | Department | Care Team | Description | +--------+ + + + + | 01/03/ | Abstract | Digestive Health | Lake Dennis MD | | | 2010 | | [place] [address] [address] | [address] | | | | | [address] | [facility] [place] | | | | | for Health and | [address] | | | | | [facility], Building 2 | [phone] | | | | | [place], [place] | | | | | | [address] | | | | | | [phone] | | | +--------+ + + + [...] Rogers | | | | | | [place] | | | | | | [address] | | | | | | [phone] | | | | | | | | +--------+---------+ + + + documented as of this encounter Visit Diagnoses Not on filedocumented in this encounter"
--- OUTSIDE RECORDS SUMMARY | ~2019-12-22 | XMS | Encounter Summary ---
Demographics + + + | Address | [address] | | | [place] [address] | + + + | Home Phone [...] + | Roxana Bo | ECON | [address] | | | | | [place] | | | | | [address] | | + + + + + Care Team Providers + +------+ + | Care Lap Runner Name | Role | Phone | [...] + + + + | 12/03/ | Solar Pv Installer | Digestive Health | Lake Dennis MD | Autoimmune hepatitis | | 2010 | | Center at [facility] [address] | [address] | (HCC); Primary | | | | [address] | [place], [place] | biliary cirrhosis | | | | for Health and | [address] | (HCC) | | | | [facility], [place] [address] | [phone] | | | | | [place], [place] | | | | | | [address] | | | | | | [phone] | | | +--------+ + + + [...] Rogers | | | | | | [place], [place] | | | | | | [address] | | | | | | [phone] | | | | | | | | +--------+---------+ + + + documented as of this encounter Visit Diagnoses + + | Diagnosis | + + | Autoimmune hepatitis (HCC) Autoimmune hepatitis | + + | Primary biliary cirrhosis (HCC) Biliary cirrhosis | + + documented in this encounter"
--- OUTSIDE RECORDS SUMMARY | ~2019-12-22 | XMS | Encounter Summary ---
Demographics + + + | Address | [address] | | | [place] [address] | + + + | Home Phone [...] + | Roxana Bo | ECON | [address] | | | | | [place] | | | | | [address] | | + + + + + Care Team Providers + +------+ + | Care Weapons Electrical Engineering Officer Name | Role | Phone | [...] | RE: 3 month blood | | 2013 | Encounter | Center at [facility] [address] | [address] | draw | | | | [address] | [place], [place] | | | | | for Health and | [address] | | | | | [facility], [facility] 2 | [phone] | | | | | [place], [place] | | | | | | [address] | | | | | | [phone] | | | +--------+ + + + [...] Rogers | | | | | | [place], [place] | | | | | | [address] | | | | | | [phone] | | | | | | | [...] | | | [place] | | + +-------+ + + + [...] - | [address] | [place], [place] | [phone] | | [place] | | | | [...] | [address] | [place] | [phone] | | [place] | | | | + + + + + documented in this encounter Visit Diagnoses Not on filedocumented in this encounter"
--- OUTSIDE RECORDS SUMMARY | ~2019-12-22 | XMS | Encounter Summary ---
Demographics + + + | Address | [address] | | | [place] [address] | + + + | Home Phone [...] + | Roxana Bo | ECON | [address] | | | | | [place] | | | | | [address] | | + + + + + Care Team Providers + +------+ + | Care Quality Assurance Monitor Final Name | Role | Phone | + [...] | 2013 | on | Center at [facility] [address]85 | [address] | (Out side labs from | | | | [address] | [place], [place] | [facility] | | | | for Health and | [address] | 01/04/14.) | | | | [facility], [place] [facility] 2 | [phone] | | | | | [place], [place] | | | | | | [address] | | | | | | [phone] | | | +--------+ + + + [...] Rogers | | | | | | [place], [place] | | | | | | [address] | | | | | | [phone] | | | | | | | [...]
--- OUTSIDE RECORDS SUMMARY | ~2019-12-22 | XMS | Encounter Summary ---
Demographics + + + | Address | [address] | | | [place] [address] | + + + | Home Phone [...] + | Roxana Bo | ECON | [address] | | | | | [place] | | | | | [address] | | + + + + + Care Team Providers + +------+ + | Care Hostess Name | Role | Phone | + [...] | | 2019 | | Center at [facility] [address] | [address] | Review | | | | [address] | [place], [place] | | | | | for Health and | [address] | | | | | [place] [address] | [phone] | | | | | [place], [place] | | | | | | [address] | | | | | | [phone] | | | +--------+ + + + [...] Rogers | | | | | | [place], [place] | | | | | | [address] | | | | | | [phone] | | | | | | | | +--------+---------+ + + + documented as of this encounter Visit Diagnoses Not on filedocumented in this encounter"
--- OUTSIDE RECORDS SUMMARY | ~2019-12-22 | XMS | Encounter Summary ---
Demographics + + + | Address | [address] | | | [place] [address] | + + + | Home Phone [...] + | Roxana Bo | ECON | [address] | | | | | [place] | | | | | [address] | | + + + + + Care Team Providers + +------+ + | Care Manager Of Compliance Name | Role | Phone | + [...] | | 2010 | | Center at [facility] [address] | [address] | management | | | | [address] | [place], [place] | | | | | [facility] Health and | [address] | | | | | [facility], [facility] 2 | [phone] | | | | | [employer] [employer], [place] | | | | | | [address] | | | | | | [phone] | | | +--------+ + + + [...] Rogers | | | | | | [place] | | | | | | [address] | | | | | | [phone] | | | | | | | | +--------+---------+ + + + documented as of this encounter Visit Diagnoses Not on filedocumented in this encounter"
--- OUTSIDE RECORDS SUMMARY | ~2019-12-22 | XMS | Encounter Summary ---
Demographics + + + | Address | [address] | | | [place] [address] | + + + | Home Phone [...] + | Roxana Bo | ECON | [address] | | | | | [place] | | | | | [address] | | + + + + + Care Team Providers + +------+ + | Care Cell Phone Repair Technician Name | Role | Phone | [...] | | 2012 | | Center at [facility] [address] | [address] | (URSODIOL) | | | | [address] | [place], [place] | | | | | for Health and | [address] | | | | | [place] [address] | [phone] | | | | | [place], [place] | | | | | | [address] | | | | | | [phone] | | | +--------+--------+ + + + [...] Rogers | | | | | | [place], [place] | | | | | | [address] | | | | | | [phone] | | | | | | | | +--------+---------+ + + + documented as of this encounter Visit Diagnoses Not on filedocumented in this encounter"
--- OUTSIDE RECORDS SUMMARY | ~2019-12-22 | XMS | Encounter Summary ---
Demographics + + + | Address | [address] | | | [place] [address] | + + + | Home Phone [...] + | Roxana Bo | ECON | [address] | | | | | [place] | | | | | [address] | | + + + + + Care Team Providers + +------+ + | Care Power Plant Manager Name | Role | Phone [...] | 2016 | on | Center at [facility] [address] | [address] | (Outside labs from | | | | [address] | [place], [place] | [facility] 05/07/15.) | | | | for Health and | [address] | | | | | [place], [facility] 2 | [phone] | | | | | [place], [place] | | | | | | [address] | | | | | | [phone] | | | +--------+ + + + [...] Rogers | | | | | | [place], [place] | | | | | | [address] | | | | | | [phone] | | | | | | | [...] [address] | [place] | [phone] | | [place] | | | | [...] + + | [facility] - | [address] | [place] | [phone] | | [place] | | | | + + + + + documented in this encounter Visit Diagnoses Not on filedocumented in this encounter"
--- OUTSIDE RECORDS SUMMARY | ~2019-12-22 | XMS | Encounter Summary ---
Demographics + + + | Address | [address] | | | [place] [address] | + + + | Home Phone [...] + | Roxana Bo | ECON | [address] | | | | | [place] | | | | | [address] | | + + + + + Care Team Providers + +------+ + | Care Vending Machine Filler Name | Role | Phone | [...] | | [address] | [place], [place] | | | | | for Health and | [address] | | | | | [facility], [facility] 2 | [phone] | | | | | [place], [place] | | | | | | [address] | | | | | | [phone] | | | +--------+ + + + [...] Rogers | | | | | | [place], [place] | | | | | | [address] | | | | | | [phone] | | | | | | | | +--------+---------+ + + + documented as of this encounter Visit Diagnoses Not on filedocumented in this encounter"
--- OUTSIDE RECORDS SUMMARY | ~2019-12-22 | XMS | Encounter Summary ---
Demographics + + + | Address | [address] | | | [place] [address] | + + + | Home Phone [...] + | Roxana Bo | ECON | [address] | | | | | [place] | | | | | [address] | | + + + + + Care Team Providers + +------+ + | Care Stitch Marker Name | Role | Phone | + [...] | | 2017 | | Center at [facility] [address]85 | [address] | | | | | [address] | [place], [place] | | | | | for Health and | [address] | | | | | [facility] 2 | [phone] | | | | | [place], [place] | | | | | | [address] | | | | | | [phone] | | | +--------+ + + + [...] Rogers | | | | | | [place], [place] | | | | | | [address] | | | | | | [phone] | | | | | | | | +--------+---------+ + + + documented as of this encounter Visit Diagnoses Not on filedocumented in this encounter"
--- OUTSIDE RECORDS SUMMARY | ~2019-12-22 | XMS | Encounter Summary ---
Demographics + + + | Address | [address] | | | [place] [address] | + + + | Home [...] + | Roxana Bo | ECON | [address] | | | | | [place] | | | | | [address] | | + + + + + Care Team Providers + +------+ + | Care Shop Mechanic Name | Role | Phone | [...] | 2015 | Encounter | Center at [facility] [address] | [address] | | | | | [address] | [place], [place] | | | | | for Health and | [address] | | | | | Healing, Building 2 | [phone] | | | | | [place], [place] | | | | | | [address] | | | | | | [phone] | | | +--------+ + + + [...] | | | | | | [place] | | | | | | [address] | | | | | | [phone] | | | | | | | | +--------+---------+ + + + documented as of this encounter Visit Diagnoses Not on filedocumented in this encounter"
--- OUTSIDE RECORDS SUMMARY | ~2019-12-22 | XMS | Encounter Summary ---
Demographics + + + | Address | [address] | | | [place] [address] | + + + | Home Phone [...] + | Roxana Bo | ECON | [address] | | | | | [place] | | | | | [address] | | + + + + + Care Team Providers + +------+ + | Care Grinder Set Up Operator Jig Name | Role | Phone | + [...] Orders | | 2017 | Encounter | Center at [facility] [address] | [address] | | | | | [address] | [place], [place] | | | | | for Health and | [address] | | | | | Healing, Building 2 | [phone] | | | | | [place], [place] | | | | | | [address] | | | | | | [phone] | | | +--------+ + + + [...] Rogers | | | | | | [place], [place] | | | | | | [address] | | | | | | [phone] | | | | | | | | +--------+---------+ + + + documented as of this encounter Visit Diagnoses + + | Diagnosis | + + | Autoimmune hepatitis (HCC) - Primary Autoimmune hepatitis | + + | Primary biliary cirrhosis (HCC) Biliary cirrhosis | + + documented in this encounter"
--- OUTSIDE RECORDS SUMMARY | ~2019-12-22 | XMS | Encounter Summary ---
Demographics + + + | Address | [address] | | | [place] [address] | + + + | Home Phone [...] + | Roxana Bo | ECON | [address] | | | | | [place] | | | | | [address] | | + + + + + Care Team Providers + +------+ + | Care Accounts Receivable Collector Name | Role | Phone | + [...] | | | | | | | [place], [place] | | | | | | | [address] | | | | | | | Phone: | | | | | | | [phone] | | | | | | | Fax: | | | | | | | [phone] | +--------+--------+ + + + + Encounter [...] | | [address] | [facility] [place] | Primary biliary | | | | for Health and | [address] | cirrhosis (HCC) | | | | [facility], Building 2 | [phone] | | | | | [facility] [place] | | | | | | [address] | | | | | | [phone] | | | +--------+---------+ + + + [...] 4 caps by mouth prior to procedure. pofvirsrqqlj-nmmfpre-veoorus-folic acid chewable 200-0.4 mg Oral Tablet, Chewable Take 2 Tabs by mouth once daily. enaocsdciorn-elhnvju-wquo-lutein (CENTRUM SILVER ULTRA WOMEN'S) Oral Tablet Take 1 Tab by mouth once daily. [place]-3 Fatty Acids-Vitamin E (FISH OIL) 1,000 mg [...] decompensation. Plan 1) cont current meds 2) s9ulasfm liver set, CBC, plts, diff 3) meds [...] [facility] | | | | | | [place], [place] | | | | | | [address] | | | | | | [phone] | | | | | | | | +--------+---------+ + + + documented as of this encounter Visit Diagnoses + + | Diagnosis | + + | Autoimmune hepatitis (HCC) - Primary Autoimmune hepatitis | + + | Primary biliary cirrhosis (HCC) Biliary cirrhosis | + + documented in this encounter
--- OUTSIDE RECORDS SUMMARY | ~2019-12-22 | XMS | Encounter Summary ---
Demographics + + + | Address | [address] | | | [place] [address] | + + + | Home Phone [...] | + + + + + | Roxaan Bo | ECON | [address] | | | | | [place] | | | | | [address] | | + + + + + Care Team Providers + +------+ + | Care Chinese Medicine Practitioner Name | Role | Phone | [...] | | 2008 | | Center at [facility] [address] | [address] | teaching, guidance, | | | | [address] | [place], [place] | and counseling | | | | for Health and | [address] | (add'l questions ) | | | | [facility], [facility] 2 | [phone] | | | | | [place], [place] | | | | | | [address] | | | | | | [phone] | | | +--------+ + + + [...] Rogers | | | | | | [facility] [place] | | | | | | [address] | | | | | | [phone] | | | | | | | | +--------+---------+ + + + documented as of this encounter Visit Diagnoses Not on filedocumented in this encounter"
--- OUTSIDE RECORDS SUMMARY | ~2019-12-22 | XMS | Encounter Summary ---
Demographics + + + | Address | [address] | | | [place] [address] | + + + | Home Phone [...] + | Roxana Bo | ECON | [address] | | | | | [place] | | | | | [address] | | + + + + + Care Team Providers + +------+ + | Care Dispatcher Tow Truck Name | Role | Phone | + [...] Dennis MD | Autoimmune hepatitis | | 2014 | Visit | Center at [facility] [address] | [address] | (HCC) (Primary Dx); | | | | [address] | [facility] [place] | Primary biliary | | | | for Health and | [address] | cirrhosis (HCC) | | | | [facility] 2 | [phone] | | | | | [place], [place] | | | | | | [address] | | | | | | [phone] | | | +--------+---------+ + + + [...] encounter Progress Notes Lake Dennis MD - 01/30/2014 1:04 PM PDTFormatting of [...] 4 caps by mouth prior to procedure. azvmlmwcuiru-mqymhyl-tajsuhf-folic acid chewable 200-0.4 mg Oral Tablet, Chewable Take 2 Tabs by mouth once daily. bfiyvsvqgost-wcrqmyj-sxpw-lutein (CENTRUM SILVER ULTRA WOMEN'S) Oral Tablet Take 1 Tab by mouth once daily. [place]-3 Fatty Acids-Vitamin E (FISH OIL) 1,000 mg [...] 2) reduce ursodiol to 600mg DAILY 3) u8vvghsu liver set, CBC, plts, diff, INR 4) RTC in 1 yr Counseling Time: I spent more than 25 minutes with the patient. Greater than 50% of the t alecia was spent in education and counseling the patient regarding management of medications an d associated toxicities.. LAKE RAMA, MD documented in this encoun ter Plan of Treatment +--------+---------+ + + + | Date | Type | Specialty | Care Team | Description | +--------+---------+ + + + | 01/26/ | Office | Hepatology | Lake Dennis MD | | | 2020 | Visit | | [address] | | | | | | [place], [place] | | | | | | [address] | | | | | | [phone] | | | | | | | | +--------+---------+ + + + documented as of this encounter Visit Diagnoses + + | Diagnosis | + + | Autoimmune hepatitis (HCC) - Primary Autoimmune hepatitis | + + | Primary biliary cirrhosis (HCC) Biliary cirrhosis | + + documented in this encounter
--- OUTSIDE RECORDS SUMMARY | ~2019-12-22 | XMS | Encounter Summary ---
Demographics + + + | Address | [address] | | | [place] [address] | + + + | Home Phone [...] + | Roxana Bo | ECON | [address] | | | | | [place] | | | | | [address] | | + + + + + Care Team Providers + +------+ + | Care Greige Goods Examiner Name | Role | Phone | [...] | 2014 | Encounter | Center at [facility] [address] | [address] | Inquiry | | | | [address] | [facility] [place] | | | | | for Health and | [address] | | | | | Healing, Building 2 | [phone] | | | | | [place], [place] | | | | | | [address] | | | | | | [phone] | | | +--------+ + + + [...] Rogers | | | | | | [place] | | | | | | [address] | | | | | | [phone] | | | | | | | | +--------+---------+ + + + documented as of this encounter Visit Diagnoses Not on filedocumented in this encounter"
--- OUTSIDE RECORDS SUMMARY | ~2019-12-22 | XMS | Encounter Summary ---
Demographics + + + | Address | [address] | | | [place] [address] | + + + | Home Phone [...] + | Roxana Bo | ECON | [address] | | | | | [place] | | | | | [address] | | + + + + + Care Team Providers + +------+ + | Care Belt Maker Name | Role | Phone | + +------+ + | Ventura Carrasquillo MD | PCP | | + +------+ + Encounter Details +--------+ + + + + | Date | Type | Department | Care Team | Description | +--------+ + + + + | 02/19/ | Florist Supplies Salesperson | Digestive Health | Lake Dennis MD | Nonspecific Abnormal | | 2008 | | Center at [facility] [address] | [address] | Results of Liver | | | | [address] | [place], [place] | Function Study | | | | for Health and | [address] | (Primary Dx) | | | | Healing, Building 2 | [phone] | | | | | [place], [place] | | | | | | [address] | | | | | | [phone] | | | +--------+ + + + [...] | | | | | | [place], [place] | | | | | | [address] | | | | | | [phone] | | | | | | | [...]
--- OUTSIDE RECORDS SUMMARY | ~2019-12-22 | XMS | Encounter Summary ---
Demographics + + + | Address | [address] | | | [place] [address] | + + + | Home Phone [...] + | Roxana Bo | ECON | [address] | | | | | [place] | | | | | [address] | | + + + + + Care Team Providers + +------+ + | Care Scientific Informatics Analyst Name | Role | Phone | + +------+ + | Ventura Carrasqiullo MD | PCP | | + +------+ [...] | 2012 | Visit | Center at [facility] [address] | [address] | cirrhosis (HCC) | | | | [address] | [place], [place] | (Primary Dx); | | | | for Health and | [address] | Autoimmune hepatitis | | | | [facility], [facility] 2 | [phone] | (HCC) | | | | [facility] [place] | | | | | | [address] | | | | | | [phone] | | | +--------+---------+ + + + [...] 4 caps by mouth prior to procedure. hymhxqxzlgiv-afhcbjg-ndfhhnu-folic acid chewable 200-0.4 mg Oral Tablet, Chewable Take 2 Tabs by mouth once daily. lzhgdjgcpdjz-bfongdp-uuog-lutein (CENTRUM SILVER ULTRA WOMEN'S) Oral Tablet Take 1 Tab by mouth once daily. [place]-3 Fatty Acids-Vitamin E (FISH OIL) 1,000 mg [...] rsodiol. Plan 1) cont current meds 2) k9iacksu CMP, CBC, plts, diff, 3) RTC in [...] Rogers | | | | | | [place], [place] | | | | | | [address] | | | | | | [phone] | | | | | | | | +--------+---------+ + + + documented as of this encounter Visit Diagnoses + + | Diagnosis | + + | Primary biliary cirrhosis (HCC) - Primary Biliary cirrhosis | + + | Autoimmune hepatitis (HCC) Autoimmune hepatitis | + + documented in this encounter
--- OUTSIDE RECORDS SUMMARY | ~2019-12-22 | XMS | Encounter Summary ---
Demographics + + + | Address | [address] | | | [place] [address] | + + + | Home Phone [...] + | Roxana Bo | ECON | [address] | | | | | [place] | | | | | [address] | | + + + + + Care Team Providers + +------+ + | Care .Net Architect Name | Role | Phone | [...] | 2013 | Encounter | Center at [facility] [address] | [address] | | | | | [address] | [place], [place] | | | | | [facility] and | [address] | | | | | [facility] [place] [facility], [facility] 2 | [phone] | | | | | [place], [place] | | | | | | [address] | | | | | | [phone] | | | +--------+ + + + [...] Rogers | | | | | | [place], [place] | | | | | | [address] | | | | | | [phone] | | | | | | | [...] [address] | [place], [place] | [phone] | | [place] | | | | [...] [address] | [place] | [phone] | | [place] | | | | + + + + + documented in this encounter Visit Diagnoses Not on filedocumented in this encounter"
--- OUTSIDE RECORDS SUMMARY | ~2019-12-22 | XMS | Encounter Summary ---
Demographics + + + | Address | [address] | | | [place] [address] | + + + | Home Phone [...] + | Roxana Bo | ECON | [address] | | | | | [place] | | | | | [address] | | + + + + + Care Team Providers + +------+ + | Care Industrial Design Engineer Name | Role | Phone | [...] | Encounter | Center at [facility] [address]95 | [address] | | | | | [address] | [place], [place] | | | | | for Health and | [address] | | | | | Healing, Building 2 | [phone] | | | | | [place], [place] | | | | | | [address] | | | | | | [phone] | | | +--------+ + + + [...] Rogers | | | | | | [place], [place] | | | | | | [address] | | | | | | [phone] | | | | | | | | +--------+---------+ + + + documented as of this encounter Visit Diagnoses + + | Diagnosis | + + | Autoimmune hepatitis (HCC) - Primary Autoimmune hepatitis | + + | Primary biliary cirrhosis (HCC) Biliary cirrhosis | + + documented in this encounter"
--- OUTSIDE RECORDS SUMMARY | ~2019-12-22 | XMS | Encounter Summary ---
Demographics + + + | Address | [address] | | | [place] [address] | + + + | Home Phone [...] + | Roxana Bo | ECON | [address] | | | | | [place] | | | | | [address] | | + + + + + Care Team Providers + +------+ + | Care Maintenance Supervisor Name | Role | Phone | [...] | | 2011 | | [place] [address] [address] | [address] | | | | | [address] | [place], [place] | | | | | for Health and | [address] | | | | | [facility], [facility] 2 | [phone] | | | | | [place], [place] | | | | | | [address] | | | | | | [phone] | | | +--------+ + + + [...] Rogers | | | | | | [place] | | | | | | [address] | | | | | | [phone] | | | | | | | | +--------+---------+ + + + documented as of this encounter Visit Diagnoses Not on filedocumented in this encounter"
--- OUTSIDE RECORDS SUMMARY | ~2019-12-22 | XMS | Encounter Summary ---
Demographics + + + | Address | [address] | | | [place] [address] | + + + | Home Phone [...] + | Roxana Bo | ECON | [address] | | | | | [place] | | | | | [address] | | + + + + + Care Team Providers + +------+ + | Care Salesperson [employer] And Glassware Name | Role | Phone | + [...] | | | | | liver | [place], [place] | Physician's | | | | | function | [address] | [address], | | | | | study | Phone: | 4th Floor | | | | | Procedures | [phone] | [place], [place] | | | | | US BIOPSY | Fax: | [address] | | | | | LIVER W/ US | [phone] | Phone: | | | | | & GUIDANCE | | [phone] | | | | | | | Fax: | | | | | | | [phone] | +--------+--------+ + + + + Reason [...] | | | | | | | [place], [place] | | | | | | | [address] | | | | | | | Phone: | | | | | | | [phone] | | | | | | | Fax: | | | | | | | [phone] | +--------+--------+ + + + + Encounter [...] | | | | | | Gertrude, [facility] Floor | | | | | | [place], [place] | | | | | | [address] | | | | | | [phone] | | | +--------+ + + + [...] Rogers | | | | | | [place], [place] | | | | | | [address] | | | | | | [phone] | | | | | | | [...] | | + +---------+ + + | [facility] DEPARTMENT OF | | | | | RADIOLOGY | | | | + +---------+ + + documented in this encounter Visit Diagnoses + + | Diagnosis | + + | Nonspecific abnormal results of liver function study | + + documented in this encounter"
--- OUTSIDE RECORDS SUMMARY | ~2019-12-22 | XMS | Encounter Summary ---
Demographics + + + | Address | [address] | | | [place] [address] | + + + | Home Phone [...] + | Roxana Bo | ECON | [address] | | | | | [place] | | | | | [address] | | + + + + + Care Team Providers + +------+ + | Care Outpatient Receptionist Name | Role | Phone | + +------+ + | No Pcp Per Patient | PCP | Unavailable | + +------+ + Encounter Details +--------+ + + + + | Date | Type | Department | Care Team | Description | +--------+ + + + + | 05/15/ | MyChart | Digestive Health | Lake Dennis MD | RE: Scheduled Blood | | 2016 | Encounter | Center at [facility] [address] | [address] | Work/test results | | | | [address] | [place], [place] | | | | | for Health and | [address] | | | | | Healing, Building 2 | [phone] | | | | | [place], [place] | | | | | | [address] | | | | | | [phone] | | | +--------+ + + + [...] Rogers | | | | | | [place] | | | | | | [address] | | | | | | [phone] | | | | | | | | +--------+---------+ + + + documented as of this encounter Visit Diagnoses Not on filedocumented in this encounter"
--- OUTSIDE RECORDS SUMMARY | ~2019-12-22 | XMS | Encounter Summary ---
Demographics + + + | Address | [address] | | | [place] [address] | + + + | Home Phone [...] + | Roxana Bo | ECON | [address] | | | | | [place] | | | | | [address] | | + + + + + Care Team Providers + +------+ + | Care Lamp Replacer Name | Role | Phone | + [...] Rd | | | | | | [place], [place] | | | | | | [address] | | | +--------+ + + + [...] Rogers | | | | | | [place], [place] | | | | | | [address] | | | | | | [phone] | | | | | | | [...]
--- OUTSIDE RECORDS SUMMARY | ~2019-12-22 | XMS | Encounter Summary ---
Demographics + + + | Address | [address] | | | [place] [address] | + + + | Home Phone [...] + | Roxana Bo | ECON | [address] | | | | | [place] | | | | | [address] | | + + + + + Care Team Providers + +------+ + | Care Agricultural Equipment Sales Manager Name | Role | Phone [...] | | 2017 | | Center at [facility] [address] | [address] | | | | | [address] | [place], [place] | | | | | for Health and | [address] | | | | | [facility] 2 | [phone] | | | | | [place], [place] | | | | | | [address] | | | | | | [phone] | | | +--------+ + + + [...] Rogers | | | | | | [place], [place] | | | | | | [address] | | | | | | [phone] | | | | | | | | +--------+---------+ + + + documented as of this encounter Visit Diagnoses Not on filedocumented in this encounter"
--- OUTSIDE RECORDS SUMMARY | ~2019-12-22 | XMS | Encounter Summary ---
Demographics + + + | Address | [address] | | | [place] [address] | + + + | Home Phone [...] + | Roxana Bo | ECON | [address] | | | | | [place] | | | | | [address] | | + + + + + Care Team Providers + +------+ + | Care Rubber Production Machine Operator Name | Role | Phone | + +------+ + | Ventura Carrasquillo MD | PCP | | + +------+ + Encounter Details +--------+ + + + + | Date | Type | Department | Care Team | Description | +--------+ + + + + | 02/04/ | Telephone | Digestive Health | Lake Dennis MD | | | 2019 | | [place] [address] [address] | [address] | | | | | [address] | [facility] [place] | | | | | for Health and | [address] | | | | | [facility], Building 2 | [phone] | | | | | [place], [place] | | | | | | [address] | | | | | | [phone] | | | +--------+ + + + [...] Rogers | | | | | | [place], [place] | | | | | | [address] | | | | | | [phone] | | | | | | | [...] | | | [place] | [address] | [address] | | + + + + + [...] | | | [place] | 120 | [address] | | + + + + + documented in this encounter Visit Diagnoses Not on filedocumented in this encounter"
--- OUTSIDE RECORDS SUMMARY | ~2019-12-22 | XMS | Encounter Summary ---
Demographics + + + | Address | [address] | | | [place] [address] | + + + | Home Phone [...] + | Roxana Bo | ECON | [address] | | | | | [place] | | | | | [address] | | + + + + + Care Team Providers + +------+ + | Care Treasury Consultant Name | Role | Phone | [...] | | 2011 | | Center at [facility] [address]85 | [address] | teaching, guidance, | | | | [address] | [place], [place] | and counseling | | | | for Health and | [address] | | | | | Healing, [facility] 2 | [phone] | | | | | [place], [place] | | | | | | [address] | | | | | | [phone] | | | +--------+ + + + [...] Rogers | | | | | | [place], [place] | | | | | | [address] | | | | | | [phone] | | | | | | | | +--------+---------+ + + + documented as of this encounter Visit Diagnoses + + | Diagnosis | + + | Autoimmune hepatitis (HCC) Autoimmune hepatitis | + + | Primary biliary cirrhosis (HCC) Biliary cirrhosis | + + documented in this encounter"
--- OUTSIDE RECORDS SUMMARY | ~2019-12-22 | XMS | Encounter Summary ---
Demographics + + + | Address | [address] | | | [place] [address] | + + + | Home Phone [...] + | Roxana Bo | ECON | [address] | | | | | [place] | | | | | [address] | | + + + + + Care Team Providers + +------+ + | Care Agriculture Scientist Name | Role | Phone | + [...] | | [address] | [place], [place] | | | | | for Health and | [address] | | | | | [facility] 2 | [phone] | | | | | [place], [place] | | | | | | [address] | | | | | | [phone] | | | +--------+ + + + [...] Rogers | | | | | | [place], [place] | | | | | | [address] | | | | | | [phone] | | | | | | | | +--------+---------+ + + + documented as of this encounter Visit Diagnoses Not on filedocumented in this encounter"
--- OUTSIDE RECORDS SUMMARY | ~2019-12-22 | XMS | Encounter Summary ---
Demographics + + + | Address | [address] | | | [place] [address] | + + + | Home Phone [...] + | Roxana Bo | ECON | [address] | | | | | [place] | | | | | [address] | | + + + + + Care Team Providers + +------+ + | Care Chip Machine Operator Name | Role | Phone [...] | 2013 | Encounter | Center at [facility] [address] | [address] | | | | | [address] | [place], [place] | | | | | for Health and | [address] | | | | | [facility], Building 2 | [phone] | | | | | [place], [place] | | | | | | [address] | | | | | | [phone] | | | +--------+ + + + [...] [place] | | | | | | [address] | | | | | | [phone] | | | | | | | | +--------+---------+ + + + documented as of this encounter Visit Diagnoses Not on filedocumented in this encounter"
--- OUTSIDE RECORDS SUMMARY | ~2019-12-22 | XMS | Encounter Summary ---
Demographics + + + | Address | [address] | | | [place] [address] | + + + | Home Phone [...] + | Roxana Bo | ECON | [address] | | | | | [place] | | | | | [address] | | + + + + + Care Team Providers + +------+ + | Care Clay Thrower Name | Role | Phone | + [...] | | 2014 | | Center at [facility] [address] | [address] | ([facility] | | | | [address] | [place], [place] | 01/02/15 Lab Results | | | | for Health and | [address] | (AST, alk phos, | | | | Healing, Building 2 | [phone] | protein, alb, bili, | | | | [place], [place] | | ALT, CBC)) | | | | [address] | | | | | | [phone] | | | +--------+ + + + [...] Rogers | | | | | | [place], [place] | | | | | | [address] | | | | | | [phone] | | | | | | | | +--------+---------+ + + + documented as of this encounter Visit Diagnoses Not on filedocumented in this encounter"
--- OUTSIDE RECORDS SUMMARY | ~2019-12-22 | XMS | Encounter Summary ---
Demographics + + + | Address | [address] | | | [place] [address] | + + + | Home Phone [...] + | Roxana Bo | ECON | [address] | | | | | [place] | | | | | [address] | | + + + + + Care Team Providers + +------+ + | Care Stationary Equipment Mechanic Name | Role | Phone | [...] | | 2008 | | Center at [facility] [address] | [address] | teaching, guidance, | | | | [address] | [place], [place] | and counseling | | | | for Health and | [address] | | | | | Healing, [facility] 2 | [phone] | | | | | [place], [place] | | | | | | [address] | | | | | | [phone] | | | +--------+ + + + [...] Rogers | | | | | | [place], [place] | | | | | | [address] | | | | | | [phone] | | | | | | | [...] [address] | [place], [place] | [phone] | | [place] | | | | [...] [address] | [place], [place] | [phone] | | [place] | | | | [...]
--- OUTSIDE RECORDS SUMMARY | ~2019-12-22 | XMS | Encounter Summary ---
Demographics + + + | Address | [address] | | | [place] [address] | + + + | Home Phone [...] + | Roxana Bo | ECON | [address] | | | | | [place] | | | | | [address] | | + + + + + Care Team Providers + +------+ + | Care Credit Administration Officer Name | Role | Phone | [...] | 2016 | on | Center at [facility] [address] | [address] | (Outside labs from | | | | [address] | [place], [place] | [employer] 01/03/16.) | | | | for Health and | [address] | | | | | [facility] 2 | [phone] | | | | | [place], [place] | | | | | | [address] | | | | | | [phone] | | | +--------+ + + + [...] Rogers | | | | | | [place], [place] | | | | | | [address] | | | | | | [phone] | | | | | | | [...] [address] | [place] | [phone] | | [place] | | | | [...] | [facility] | [address] | [place] | [phone] | | [place] | | | | + + + + + documented in this encounter Visit Diagnoses Not on filedocumented in this encounter"
--- OUTSIDE RECORDS SUMMARY | ~2019-12-22 | XMS | Encounter Summary ---
Demographics + + + | Address | [address] | | | [place] [address] | + + + | Home Phone [...] + | Roxana Bo | ECON | [address] | | | | | [place] | | | | | [address] | | + + + + + Care Team Providers + +------+ + | Care Menhaden Vessel Pilot Name | Role | Phone | [...] | [address] | [place], [place] | | | | | for Health and | [address] | | | | | [facility], [facility] 2 | [phone] | | | | | [place], [place] | | | | | | [address] | | | | | | [phone] | | | +--------+ + + + [...] Rogers | | | | | | [place], [place] | | | | | | [address] | | | | | | [phone] | | | | | | | | +--------+---------+ + + + documented as of this encounter Visit Diagnoses Not on filedocumented in this encounter"
--- OUTSIDE RECORDS SUMMARY | ~2019-12-22 | XMS | Encounter Summary ---
Demographics + + + | Address | [address] | | | [place] [address] | + + + | Home Phone [...] + | Roxana Bo | ECON | [address] | | | | | [place] | | | | | [address] | | + + + + + Care Team Providers + +------+ + | Care Dye House Helper Name | Role | Phone | [...] | | 2011 | | Center at [facility] [address]85 | [address] | teaching, guidance, | | | | [address] | [place], [place] | and counseling | | | | for Health and | [address] | | | | | Healing, [facility] 2 | [phone] | | | | | [place], [place] | | | | | | [address] | | | | | | [phone] | | | +--------+ + + + [...] Rogers | | | | | | [place], [place] | | | | | | [address] | | | | | | [phone] | | | | | | | | +--------+---------+ + + + documented as of this encounter Visit Diagnoses + + | Diagnosis | + + | Autoimmune hepatitis (HCC) Autoimmune hepatitis | + + | Primary biliary cirrhosis (HCC) Biliary cirrhosis | + + documented in this encounter"
--- OUTSIDE RECORDS SUMMARY | ~2019-12-22 | XMS | Encounter Summary ---
Demographics + + + | Address | [address] | | | [place] [address] | + + + | Home Phone [...] + | Roxana Bo | ECON | [address] | | | | | [place] | | | | | [address] | | + + + + + Care Team Providers + +------+ + | Care Cpc Coder Name | Role | Phone | + [...] | | 2009 | | Center at [facility] [address]85 | [address] | management | | | | [address] | [place], [place] | | | | | [facility] Health and | [address] | | | | | [facility], [facility] 2 | [phone] | | | | | [place], [place] | | | | | | [address] | | | | | | [phone] | | | +--------+ + + + [...] Rogers | | | | | | [place] | | | | | | [address] | | | | | | [phone] | | | | | | | | +--------+---------+ + + + documented as of this encounter Visit Diagnoses Not on filedocumented in this encounter"
--- OUTSIDE RECORDS SUMMARY | ~2019-12-22 | XMS | Encounter Summary ---
Demographics + + + | Address | [address] | | | [place] [address] | + + + | Home Phone [...] + | Roxana Bo | ECON | [address] | | | | | [place] | | | | | [address] | | + + + + + Care Team Providers + +------+ + | Care Occupational Therapy Technician Name | Role | Phone | [...] Work | | 2019 | Encounter | Center at [facility] [address] | [address] | | | | | [address] | [place], [place] | | | | | for Health and | [address] | | | | | Healing, Building 2 | [phone] | | | | | [place], [place] | | | | | | [address] | | | | | | [phone] | | | +--------+ + + + [...] Rogers | | | | | | [place], [place] | | | | | | [address] | | | | | | [phone] | | | | | | | [...]
--- OUTSIDE RECORDS SUMMARY | ~2019-12-22 | XMS | Encounter Summary ---
Demographics + + + | Address | [address] | | | [place] [address] | + + + | Home Phone [...] + | Roxana Bo | ECON | [address] | | | | | [place] | | | | | [address] | | + + + + + Care Team Providers + +------+ + | Care Online Community Manager Name | Role | Phone | [...] at [facility] [address] | [address] | | | | | [address] | [place], [place] | | | | | for Health and | [address] | | | | | Healing, Building 2 | [phone] | | | | | [place], [place] | | | | | | [address] | | | | | | [phone] | | | +--------+ + + + [...] Rogers | | | | | | [place], [place] | | | | | | [address] | | | | | | [phone] | | | | | | | [...]
--- OUTSIDE RECORDS SUMMARY | ~2019-12-22 | XMS | Encounter Summary ---
Demographics + + + | Address | [address] | | | [place] [address] | + + + | Home Phone [...] + | Roxana Bo | ECON | [address] | | | | | [place] | | | | | [address] | | + + + + + Care Team Providers + +------+ + | Care Chicken Stuffer Name | Role | Phone | + [...] | 2009 | on | Center at [facility] [address] | [address] | | | | | [address] | [place], [place] | | | | | for Health and | [address] | | | | | [facility], [facility] 2 | [phone] | | | | | [place], [place] | | | | | | [address] | | | | | | [phone] | | | +--------+ + + + [...] Rogers | | | | | | [place], [place] | | | | | | [address] | | | | | | [phone] | | | | | | | [...] [address] | [place], [place] | [phone] | | [place] | | | | + + + + + | [facility] - | | [place], [place] | | | [place] | | [...] [address] | [place], [place] | [phone] | | [place] | | | | + + + + + | [facility] - | | [place], [place] | | | [place] | | [...] + + | [facility] - | [address] | [place], [place] | [phone] | | [place] | | | | + + + + + | [facility] - | | [place], [place] | | | [place] | | | | + + + + + documented in this encounter Visit Diagnoses Not on filedocumented in this encounter"
--- OUTSIDE RECORDS SUMMARY | ~2019-12-22 | XMS | Encounter Summary ---
Demographics + + + | Address | [address] | | | [place] [address] | + + + | Home Phone [...] + | Roxana Bo | ECON | [address] | | | | | [place] | | | | | [address] | | + + + + + Care Team Providers + +------+ + | Care Repeat Photocomposing Machine Operator Name | Role | Phone | + +------+ + | Ventura Carrasquillo MD | PCP | | + +------+ + Encounter Details +--------+--------+ + + + | Date | Type | Department | Care Team | Description | +--------+--------+ + + + | 03/07/ | Refill | Digestive Health | Lake Dennis MD | | | 2009 | | [place] at [facility] [address] | [address] | | | | | [address] | [facility] [place] | | | | | for Health and | [address] | | | | | Healing, Building 2 | [phone] | | | | | [place], [place] | | | | | | [address] | | | | | | [phone] | | | +--------+--------+ + + + [...] [place] | | | | | | [address] | | | | | | [phone] | | | | | | | | +--------+---------+ + + + documented as of this encounter Visit Diagnoses Not on filedocumented in this encounter"
--- OUTSIDE RECORDS SUMMARY | ~2019-12-22 | XMS | Encounter Summary ---
Demographics + + + | Address | [address] | | | [place] [address] | + + + | Home Phone [...] + | Roxana Bo | ECON | [address] | | | | | [place] | | | | | [address] | | + + + + + Care Team Providers + +------+ + | Care Gre Instructor Name | Role | Phone | [...] | | [address] | [place], [place] | | | | | for Health and | [address] | | | | | [facility], [facility] 2 | [phone] | | | | | [place], [place] | | | | | | [address] | | | | | | [phone] | | | +--------+ + + + [...] Rogers | | | | | | [place], [place] | | | | | | [address] | | | | | | [phone] | | | | | | | [...] | [address] | [place], [place] | | | [place] | 120 | [address] | | + + + + + [...] | | | [place] | 120 | [address] | | + + + + + [...] | | | [place] | 120 | [address] | | + + + + + documented in this encounter Visit Diagnoses Not on filedocumented in this encounter"
--- OUTSIDE RECORDS SUMMARY | ~2019-12-22 | XMS | Encounter Summary ---
Demographics + + + | Address | [address] | | | [place] [address] | + + + | Home Phone [...] + | Roxana Bo | ECON | [address] | | | | | [place] | | | | | [address] | | + + + + + [...] | | | Procedures | FAMILY | [place], [place] | | | | | CONSULT TO | MEDICINE | [address] | | | | | HEPATOLOGY | [address] | Phone: | | | | | liver bx | [address] | [phone] | | | | | | [place], | Fax: | | | | | | [place] [address] | [phone] | | | | | | Phone: | | | | | | | [phone] | | | | | | | Fax: | | | | | | | [phone] | | +--------+ + + + + + Encounter Details +--------+---------+ + + + | Date | Type | Department | Care Team | Description | +--------+---------+ + + + | 09/08/ | Office | Digestive Health | Lake Dennis MD | Autoimmune hepatitis | | 2009 | Visit | Center at [facility] [address] | [address] | (HCC); Primary | | | | [address] | [place], [place] | biliary cirrhosis | | | | for Health and | [address] | (HCC) | | | | [place] [address] | [phone] | | | | | [place], [place] | | | | | | [address] | | | | | | [phone] | | | +--------+---------+ + + + [...] her LFTs are essentially normal. Plan: -outside veneer splicer or PCP to check Vit A and [...] Rogers | | | | | | [place], [place] | | | | | | [address] | | | | | | [phone] | | | | | | | [...] - | [address] | [place], [place] | [phone] | | [place] | | | | [...] [address] | [place], [place] | [phone] | | [place] | | | | + + + + + | [facility] - | | [place], [place] | | | [place] | | [...] [address] | [place], [place] | [phone] | | [place] | | | | [...]
--- OUTSIDE RECORDS SUMMARY | ~2019-12-22 | XMS | Encounter Summary ---
Demographics + + + | Address | [address] | | | [place] [address] | + + + | Home Phone [...] + | Roxana Bo | ECON | [address] | | | | | [place] | | | | | [address] | | + + + + + Care Team Providers + +------+ + | Care Resistance Welding Machine Operator Name | Role | [...] | 2016 | on | Center at [facility] [address] | [address] | (Outside Labs from | | | | [address] | [place], [place] | [facility] [place] | | | | for Health and | [address] | 09/03/15) | | | | [place] [address] | [phone] | | | | | [place], [place] | | | | | | [address] | | | | | | [phone] | | | +--------+ + + + [...] Rogers | | | | | | [place], [place] | | | | | | [address] | | | | | | [phone] | | | | | | | [...] [address] | [place] | [phone] | | [place] | | | | [...] + + | [facility] - | [address] | [place], [place] | [phone] | | [place] | | | | + + + + + documented in this encounter Visit Diagnoses Not on filedocumented in this encounter"
--- OUTSIDE RECORDS SUMMARY | ~2019-12-22 | XMS | Encounter Summary ---
Demographics + + + | Address | [address] | | | [place] [address] | + + + | Home Phone | | + + + | Preferred Language | Unknown | + + + | Marital Status | Unknown | + + + | Shinto Affiliation | Unknown | + + + | Race | Unknown | + + + | Ethnic Group | Unknown | + + + Author + + + | Author | [facility] | | | and [place] | + + + | Organization | [facility] | | | and [place] | + + + | Address | Unknown | + + + | Phone | Unavailable | + + + Care Team Providers + +------+ + | Care Summer Counselor Name | Role | Phone | + +------+ + PCP | Unavailable | + +------+ + Encounter Details +--------+ + + + + | Date | Type | Department | Care Team | Description | +--------+ + + + + | 10/03/ | Hospital | [facility] | | | | 1991 | Encounter | MED CTR XRAY [address] | | | | | | [address] | | | | | | [place] [address] | | | | | | [phone] | | | +--------+ + + + [...]
--- OUTSIDE RECORDS SUMMARY | ~2019-12-22 | XMS | Encounter Summary ---
Demographics + + + | Address | [address] | | | [place] [address] | + + + | Home Phone [...] + | Roxana Bo | ECON | [address] | | | | | [place] | | | | | [address] | | + + + + + Care Team Providers + +------+ + | Care Currency Examiner Name | Role | Phone | [...] | 2011 | Encounter | Center at [facility] [address] | [address] | medication list | | | | [address] | [place], [place] | | | | | for Health and | [address] | | | | | [facility], Building 2 | [phone] | | | | | [place], [place] | | | | | | [address] | | | | | | [phone] | | | +--------+ + + + [...] Rogers | | | | | | [place], [place] | | | | | | [address] | | | | | | [phone] | | | | | | | | +--------+---------+ + + + documented as of this encounter Visit Diagnoses Not on filedocumented in this encounter"
--- OUTSIDE RECORDS SUMMARY | ~2019-12-22 | XMS | Encounter Summary ---
Demographics + + + | Address | [address] | | | [place] [address] | + + + | Home Phone [...] + | Roxana Bo | ECON | [address] | | | | | [place] | | | | | [address] | | + + + + + [...] | | 2013 | | Center at [facility] 3485 | [address] [facility] | Review ([facility] - | | | | [address] | [place], [place] | OUTSIDE LAB: AST, | | | | for Health and | [address] | alkaline, bilirubin, | | | | [facility], Building 2 | [phone] | protein, albumin, | | | | [place], [place] | | ALT, CBC 04/03/2014) | | | | [address] | | | | | | [phone] | | | +--------+ + + + [...] | | | | | | [place], [place] | | | | | | [address] | | | | | | [phone] | | | | | | | | +--------+---------+ + + + documented as of this encounter Visit Diagnoses Not on filedocumented in this encounter"
--- OUTSIDE RECORDS SUMMARY | ~2019-12-22 | XMS | Encounter Summary ---
Demographics + + + | Address | [address] | | | [place] [address] | + + + | Home Phone [...] | + + + + + | oRxana Bo | ECON | [address] | | | | | [place] | | | | | [address] | | + + + + + Care Team Providers + +------+ + | Care Elementary School Teacher'S Aide Name | Role | Phone | + [...] | +--------+ + + + + | 03// | MyChart | Digestive Health | Lake Dennis MD | RE: Test results | | 2012 | Encounter | Center at [facility] [address] | [address] | | | | | [address] | [place], [place] | | | | | for Health and | [address] | | | | | [facility], [facility] 2 | [phone] | | | | | [place], [place] | | | | | | [address] | | | | | | [phone] | | | +--------+ + + + [...] Rogers | | | | | | [place], [place] | | | | | | [address] | | | | | | [phone] | | | | | | | [...] [address] | [place] | [phone] | | [place] | | | | [...] [address] | [place], [place] | [phone] | | [place] | | | | + + + + + documented in this encounter Visit Diagnoses Not on filedocumented in this encounter"
--- OUTSIDE RECORDS SUMMARY | ~2019-12-22 | XMS | Encounter Summary ---
Demographics + + + | Address | [address] | | | [place] [address] | + + + | Home Phone [...] + | Roxana Bo | ECON | [address] | | | | | [place] | | | | | [address] | | + + + + + Care Team Providers + +------+ + | Care Advanced Nursing Professor Name | Role | Phone | + [...] + + + + | 01/26/ | Commercial Banker | Digestive Health | Lake Dennis MD | Primary biliary | | 2017 | | Center at [facility] [address] | [address] | cirrhosis (HCC) | | | | [address] | [place], [place] | (Primary Dx); | | | | for Health and | [address] | Autoimmune hepatitis | | | | [facility], [facility] 2 | [phone] | (HCC) | | | | [place], [place] | | | | | | [address] | | | | | | [phone] | | | +--------+ + + + [...] Rogers | | | | | | [place], [place] | | | | | | [address] | | | | | | [phone] | | | | | | | | +--------+---------+ + + + documented as of this encounter Visit Diagnoses + + | Diagnosis | + + | Primary biliary cirrhosis (HCC) - Primary Biliary cirrhosis | + + | Autoimmune hepatitis (HCC) Autoimmune hepatitis | + + documented in this encounter"
--- OUTSIDE RECORDS SUMMARY | ~2019-12-22 | XMS | Encounter Summary ---
Demographics + + + | Address | [address] | | | [place] [address] | + + + | Home Phone | | + + + | Preferred Language | Unknown | + + + | Marital Status | Unknown | + + + | Jew Affiliation | Unknown | + + + | Race | Unknown | + + + | Ethnic Group | Unknown | + + + Author + + + | Author | [facility] | | | and [place] | + + + | Organization | [facility] | | | and [place] | + + + | Address | Unknown | + + + | Phone | Unavailable | + + + Care Team Providers + +------+ + | Care Head Boys Tennis Coach Name | Role | Phone | + +------+ + PCP | Unavailable | + +------+ + Encounter Details +--------+ + + + + | Date | Type | Department | Care Team | Description | +--------+ + + + + | 08/18/ | Imaging | [facility] | Provider, | | | 2020 | Exam | MED CTR EXTERNAL | [address] | | | | | IMAGING [address] | [address] | | | | | [address] | [place] [address] | | | | | [place] [address] | | | | | | [phone] | | | +--------+ + + + [...] Not on filedocumented as of this encounter Procedures + +--------+ + + + | Procedure Name | Priori | Date/Time | Associated Diagnosis | Comments | | | ty | | | | + +--------+ + + + | CT ABDOMEN PELVIS W | Routin | 01/01/2017 | | Results for this | | CONTRAST | e | 12:00 AM | | procedure are in the | | | | PDT | | results section. | + +--------+ + + + documented in this encounter Results CT Abdomen Pelvis w Contrast (01/01/2017 12:00 AM PDT) + + | Specimen | + + | | + + + + + | Narrative | Performed At | + + + | External films for comparison only | [facility] | | | | | No results will be in the chart. | | + + + + +---------+ + + | Performing | Address | City/State/Zipcode | Phone Number | | Organization | | | | + +---------+ + + | [facility] | | | | + +---------+ + + documented in this encounter Visit Diagnoses Not on filedocumented in this encounter"
--- OUTSIDE RECORDS SUMMARY | ~2019-12-22 | XMS | Encounter Summary ---
Demographics + + + | Address | [address] | | | [place] [address] | + + + | Home Phone [...] + | Roxana Bo | ECON | [address] | | | | | [place] | | | | | [address] | | + + + + + Care Team Providers + +------+ + | Care Electromechanic Name | Role | Phone | + +------+ + | Ventura Carrasquillo MD | PCP | | + +------+ + Encounter Details +--------+ + + + + | Date | Type | Department | Care Team | Description | +--------+ + + + + | 01/20/ | Abstract | Digestive Health | Lake Dennis MD | | | 2011 | | [place] [address] [address] | [address] | | | | | [address] | [facility] [place] | | | | | for Health and | [address] | | | | | [facility], Building 2 | [phone] | | | | | [place], [place] | | | | | | [address] | | | | | | [phone] | | | +--------+ + + + [...] Rogers | | | | | | [place] | | | | | | [address] | | | | | | [phone] | | | | | | | | +--------+---------+ + + + documented as of this encounter Visit Diagnoses Not on filedocumented in this encounter"
--- OUTSIDE RECORDS SUMMARY | ~2019-12-22 | XMS | Encounter Summary ---
Demographics + + + | Address | [address] | | | [place] [address] | + + + | Home Phone [...] + | Roxana Bo | ECON | [address] | | | | | [place] | | | | | [address] | | + + + + + Care Team Providers + +------+ + | Care Associate Spa Director Name | Role | Phone | [...] | | 2020 | | Center at [facility] [address] | [address] | Review | | | | [address] | [place], [place] | | | | | for Health and | [address] | | | | | [place] [address] | [phone] | | | | | [place], [place] | | | | | | [address] | | | | | | [phone] | | | +--------+ + + + [...] Rogers | | | | | | [place], [place] | | | | | | [address] | | | | | | [phone] | | | | | | | | +--------+---------+ + + + documented as of this encounter Visit Diagnoses Not on filedocumented in this encounter"
--- OUTSIDE RECORDS SUMMARY | ~2019-12-22 | XMS | Encounter Summary ---
Demographics + + + | Address | [address] | | | [place] [address] | + + + | Home Phone [...] + | Roxana Bo | ECON | [address] | | | | | [place] | | | | | [address] | | + + + + + Care Team Providers + +------+ + | Care Mental Health Consultant Name | Role | Phone | [...] | 2014 | Visit | Center at [facility] [address] | [address] | (HCC) (Primary Dx); | | | | [address] | [facility] [place] | Primary biliary | | | | for Health and | [address] | cirrhosis (HCC) | | | | [facility] 2 | [phone] | | | | | [place], [place] | | | | | | [address] | | | | | | [phone] | | | +--------+---------+ + + + [...] 4 caps by mouth prior to procedure. djrgzxjoitez-hsauhnm-lrygvzl-folic acid chewable 200-0.4 mg Oral Tablet, Chewable Take 2 Tabs by mouth once daily. cuahckhtlbnh-dpvxwbb-clxm-lutein (CENTRUM SILVER ULTRA WOMEN'S) Oral Tablet Take 1 Tab by mouth once daily. Ola-3 Fatty Acids-Vitamin E (FISH OIL) 1,000 mg [...] 2) reduce ursodiol to 600mg DAILY 3) q0hyyfsf liver set, CBC, plts, diff, INR 4) [...] | | | | | | [place], [place] | | | | | | [address] | | | | | | [phone] | | | | | | | | +--------+---------+ + + + documented as of this encounter Visit Diagnoses + + | Diagnosis | + + | Autoimmune hepatitis (HCC) - Primary Autoimmune hepatitis | + + | Primary biliary cirrhosis (HCC) Biliary cirrhosis | + + documented in this encounter
--- OUTSIDE RECORDS SUMMARY | ~2019-12-22 | XMS | Encounter Summary ---
Demographics + + + | Address | [address] | | | [place] [address] | + + + | Home Phone [...] + | Roxana Bo | ECON | [address] | | | | | [place] | | | | | [address] | | + + + + + Care Team Providers + +------+ + | Care Ibm Bpm Architect Name | Role | Phone | [...] | | [address] | [place], [place] | | | | | for Health and | [address] | | | | | Healing, Building [address] | [phone] | | | | | [place], [place] | | | | | | [address] | | | | | | [phone] | | | +--------+ + + + [...] Rogers | | | | | | [place], [place] | | | | | | [address] | | | | | | [phone] | | | | | | | | +--------+---------+ + + + documented as of this encounter Visit Diagnoses Not on filedocumented in this encounter"
--- OUTSIDE RECORDS SUMMARY | ~2019-12-22 | XMS | Encounter Summary ---
Demographics + + + | Address | [address] | | | [place] [address] | + + + | Home Phone [...] + | Roxana Bo | ECON | [address] | | | | | [place] | | | | | [address] | | + + + + + Care Team Providers + +------+ + | Care Cushion Sewer Name | Role | Phone | + [...] | | | | | liver | [place], [place] | Physician's | | | | | function | [address] | [place], | | | | | study | Phone: | 4th Floor | | | | | Procedures | [phone] | [place], [place] | | | | | US BIOPSY | Fax: | [address] | | | | | LIVER W/ US | [phone] | Phone: | | | | | & GUIDANCE | | [phone] | | | | | | | Fax: | | | | | | | [phone] | +--------+--------+ + + + + Reason [...] | | | Procedures | FAMILY | [place], [place] | | | | | CONSULT TO | MEDICINE | [address] | | | | | HEPATOLOGY | [address] | Phone: | | | | | liver bx | [address] | [phone] | | | | | | [place], | Fax: | | | | | | [place] [address] | [phone] | | | | | | Phone: | | | | | | | [phone] | | | | | | | Fax: | | | | | | | [phone] | | +--------+ + + + + + Encounter Details +--------+---------+ + + + | Date | Type | Department | Care Team | Description | +--------+---------+ + + + | 02/14/ | Office | Digestive Health | Lake Dennis MD | Nonspecific Abnormal | | 2009 | Visit | [place] [facility] [address] | [address] | Results of Liver | | | | [address] [place] | [place], [place] | Function Study | | | | for Health and | [address] | (Primary Dx) | | | | [facility] 2 | [phone] | | | | | [place], [place] | | | | | | [address] | | | | | | [phone] | | | +--------+---------+ + + + [...] office note has been dictated. CSN #: [id number] documented in this encoun ter Plan of Treatment +--------+---------+ + + + | Date | Type | Specialty | Care Team | Description | +--------+---------+ + + + | 01/26/ | Office | Hepatology | Lake Dennis MD | | | 2020 | Visit | | [address] | | | | | | [place], [place] | | | | | | [address] | | | | | | [phone] | | | | | | | [...] Procedure Note | + + | Rg Rcihards - 03/22/2009 12:00 AM PST | | [...] [facility] | | Change effective 05/30/08 [facility] ([facility]) | DEPARTMENT OF | | [facility] [place] [address] [facility] | PATHOLOGY | | [place] [address] | | + + + + + + + + | Performing | Address | City/State/Zipcode | Phone Number | | Organization | | | | + + + + + | [facility] | [address] | [place] [address] | | | PATHOLOGY | [address] [...] | NDNA Ab Titer effective 07/11/08. [facility] ([facility] | DEPARTMENT OF | | Lab) [facility] [place] [address] [address] | PATHOLOGY | | [place] [address] | | | [facility] ([facility]) [facility] [address] | | | [address] [place] [address] | | | | | + + + + + + + + | Performing | Address | City/State/Zipcode | Phone Number | | Organization | | | | + + + + + | [facility] | [address] | [place] [address] | | | PATHOLOGY | [address] [...] At | + + + | [facility] ([facility]) [place] | [facility] | | [facility] [place] [address] [address] [facility] | DEPARTMENT OF | | [place], [place] [address] | PATHOLOGY | + + + + + + + + | Performing | Address | City/State/Zipcode | Phone Number | | Organization | | | | + + + + + | [facility] DEPARTMENT OF | [address] | [place] [address] | | | PATHOLOGY | [address] [...] 1.00Comment: | 0.98 - 1.20 INR | [facility] | | | | PT INR Therapeutic [...] | + + + + + | [facility] | [address] [facility] | [place] [address] | | | PATHOLOGY | [address] | | | + + + + + | [facility] DEPARTMENT OF | [facility] | [place] [address] | | | PATHOLOGY | [address] [...] | + + + + + | [facility] DEPARTMENT OF | [address] [facility] | [place] [address] | | | PATHOLOGY | [address] | | | + + + + + | [facility] DEPARTMENT OF | [address] [facility] | [place] [address] | | | PATHOLOGY | [address] [...] | + + + + + | [facility] | [address] | [place] [address] | | | PATHOLOGY | [address] | | | + + + + + | [facility] | [address] | [place] [address] | | | PATHOLOGY | [address] [...]
--- OUTSIDE RECORDS SUMMARY | ~2019-12-22 | XMS | Encounter Summary ---
Demographics + + + | Address | [address] | | | [place] [address] | + + + | Home Phone [...] + | Roxana Bo | ECON | [address] | | | | | [place] | | | | | [address] | | + + + + + Care Team Providers + +------+ + | Care Dustless Operator Name | Role | Phone | [...] | | [address] | [place], [place] | | | | | for Health and | [address] | | | | | [facility] 2 | [phone] | | | | | [place], [place] | | | | | | [address] | | | | | | [phone] | | | +--------+ + + + [...] Rogers | | | | | | [place], [place] | | | | | | [address] | | | | | | [phone] | | | | | | | [...] - | [address] | [place], [place] | [phone] | | [place] | | | | [...] [address] | [place] | [phone] | | [place] | | | | + + + + + documented in this encounter Visit Diagnoses Not on filedocumented in this encounter"
--- OUTSIDE RECORDS SUMMARY | ~2019-12-22 | XMS | Encounter Summary ---
Demographics + + + | Address | [address] | | | [place] [address] | + + + | Home Phone [...] + | Roxana Bo | ECON | [address] | | | | | [place] | | | | | [address] | | + + + + + Care Team Providers + +------+ + | Care Security Solutions Architect Name | Role | Phone | [...] | 2010 | on | Center at [facility] [address]185 | [address] | | | | | [address] | [place], [place] | | | | | for Health and | [address] | | | | | [facility], [facility] 2 | [phone] | | | | | [place], [place] | | | | | | [address] | | | | | | [phone] | | | +--------+ + + + [...] [place] | | | | | | [address] | | | | | | [phone] | | | | | | | [...]
--- OUTSIDE RECORDS SUMMARY | ~2019-12-22 | XMS | Encounter Summary ---
Demographics + + + | Address | [address] | | | [place] [address] | + + + | Home Phone [...] + | Roxana Bo | ECON | [address] | | | | | [place] | | | | | [address] | | + + + + + Care Team Providers + +------+ + | Care Computer Hardware Technician Name | Role | Phone | + +------+ + | No Pcp Per Patient | PCP | Unavailable | + +------+ + Reason for Visit + + + | Reason | Comments | + + + | Blood Test Results | [facility] 05/07/15 Lab Results (CBC, AST..) | + + + Encounter Details +--------+ + + + + | Date | Type | Department | Care Team | Description | +--------+ + + + + | 05/23/ | Abstract | Digestive Health | Lake Dennis MD | Blood Test Results | | 2015 | | Center at [facility] [address]85 | [address] | ([facility] | | | | [facility] | [place], [place] | 05/07/15 Lab Results | | | | for Health and | [id number] | (CBC, AST..)) | | | | [facility] 2 | [phone] | | | | | [place], [place] | | | | | | [address] | | | | | | [phone] | | | +--------+ + + + [...] Rogers | | | | | | [place], [place] | | | | | | [address] | | | | | | [phone] | | | | | | | | +--------+---------+ + + + documented as of this encounter Visit Diagnoses Not on filedocumented in this encounter"
--- OUTSIDE RECORDS SUMMARY | ~2019-12-22 | XMS | Encounter Summary ---
Demographics + + + | Address | [address] | | | [place] [address] | + + + | Home Phone [...] + | Roxana Bo | ECON | [address] | | | | | [place] | | | | | [address] | | + + + + + Care Team Providers + +------+ + | Care Size Tester Name | Role | Phone | + [...] | 2019 | Encounter | Center at [facility] [address] | [address] | Results | | | | [address] | [place], [place] | | | | | for Health and | [address] | | | | | Healing, Building 2 | [phone] | | | | | [facility] [place] | | | | | | [address] | | | | | | [phone] | | | +--------+ + + + [...] Rogers | | | | | | [place], [place] | | | | | | [address] | | | | | | [phone] | | | | | | | [...] + + | [facility] - | [address] | [place], [place] | [phone] | | [place] | | | | [...] [address] | [place], [place] | [phone] | | [place] | | | | + + + + + documented in this encounter Visit Diagnoses Not on filedocumented in this encounter"
--- OUTSIDE RECORDS SUMMARY | ~2019-12-22 | XMS | Encounter Summary ---
Demographics + + + | Address | [address] | | | [place] [address] | + + + | Home Phone [...] + | Roxana Bo | ECON | [address] | | | | | [place] | | | | | [address] | | + + + + + Care Team Providers + +------+ + | Care Shuttler Car Name | Role | Phone | + [...] | 2009 | on | Center at [facility] 3485 | [address] | (05/21/09, 04/19/09 | | | | [address] | [place], [place] | [facility]/ Ph# | | | | for Health and | [address] | [phone]) | | | | [facility], [facility] 2 | [phone] | | | | | [place], [place] | | | | | | [address] | | | | | | [phone] | | | +--------+ + + + [...] | | 2019 | Visit | | [address] | | | | | | [place], [place] | | | | | | [address] | | | | | | [phone] | | | | | | | [...] [address] | [place] | [phone] | | [place] | | | | + + + + + | [facility] - | | [place] | | | [place] | | | | + + + + + OLIVERIO WITH DIFFERENTIAL (05/22/2009) + + + + [...] | | | [place] | | + + + + + [...] + + | [facility] - | [address] | [place] | [phone] | | [place] | | | | + + + + + | [facility] - | | [place], [place] | | | [place] | | [...] [address] | [place], [place] | [phone] | | [place] | | | | + + + + + | [facility] - | | [place], [place] | | | [place] | | | | + + + + + documented in this encounter Visit Diagnoses Not on filedocumented in this encounter"
--- OUTSIDE RECORDS SUMMARY | ~2019-12-22 | XMS | Encounter Summary ---
Demographics + + + | Address | [address] | | | [place] [address] | + + + | Home Phone [...] + | Roxana Bo | ECON | [address] | | | | | [place] | | | | | [address] | | + + + + + Care Team Providers + +------+ + | Care Cable Ferryboat Operator Name | Role | Phone | [...] | | [address] | [place], [place] | | | | | for Health and | [address] | | | | | Healing, Building 2 | [phone] | | | | | [place], [place] | | | | | | [address] | | | | | | [phone] | | | +--------+ + + + [...] Rogers | | | | | | [place], [place] | | | | | | [address] | | | | | | [phone] | | | | | | | | +--------+---------+ + + + documented as of this encounter Visit Diagnoses Not on filedocumented in this encounter"
--- OUTSIDE RECORDS SUMMARY | ~2019-12-22 | XMS | Encounter Summary ---
Demographics + + + | Address | [address] | | | [place] [address] | + + + | Home Phone [...] + | Roxana Bo | ECON | [address] | | | | | [place] | | | | | [address] | | + + + + + Care Team Providers + +------+ + | Care Poker Dealer Name | Role | Phone | + +------+ + | Ventura Carrasquillo MD | PCP | | + +------+ + Encounter Details +--------+ + + + + | Date | Type | Department | Care Team | Description | +--------+ + + + + | 01/20/ | Abstract | Digestive Health | Lake Dennis MD | | | 2011 | | [place] [address] [address] | [address] | | | | | [address] | [facility] [place] | | | | | for Health and | [address] | | | | | [facility], Building 2 | [phone] | | | | | [place], [place] | | | | | | [address] | | | | | | [phone] | | | +--------+ + + + [...] Rogers | | | | | | [place] | | | | | | [address] | | | | | | [phone] | | | | | | | | +--------+---------+ + + + documented as of this encounter Visit Diagnoses Not on filedocumented in this encounter"
--- OUTSIDE RECORDS SUMMARY | ~2019-12-22 | XMS | Encounter Summary ---
Demographics + + + | Address | [address] | | | [place] [address] | + + + | Home Phone [...] + | Roxana Bo | ECON | [address] | | | | | [place] | | | | | [address] | | + + + + + Care Team Providers + +------+ + | Care Sales And Operations Trainee Name | Role | Phone | + +------+ + | Ventura Carrasquillo MD | PCP | | + +------+ + Encounter Details +--------+ + + + + | Date | Type | Department | Care Team | Description | +--------+ + + + + | 04/05/ | Document-Sc | UNKNOWN DEPARTMENT | Unknown . | | | 2012 | anned | [address] | | | | | | [address] | | | | | | [place], [place] | | | | | | [address] | | | +--------+ + + + [...] Rogers | | | | | | [place], [place] | | | | | | [address] | | | | | | [phone] | | | | | | | [...]
--- OUTSIDE RECORDS SUMMARY | ~2019-12-22 | XMS | Encounter Summary ---
Demographics + + + | Address | [address] | | | [place] [address] | + + + | Home Phone [...] + | Roxana Bo | ECON | [address] | | | | | [place] | | | | | [address] | | + + + + + Care Team Providers + +------+ + | Care Civil Preparedness Training Officer Name | Role | Phone | [...] | | | for Health and | [address] | | | | | [facility] 2 | [phone] | | | | | [place], [place] | | | | | | [address] | | | | | | [phone] | | | +--------+ + + + [...] | | | | | | [place], [place] | | | | | | [address] | | | | | | [phone] | | | | | | | [...] [address] | [place], [place] | [phone] | | [place] | | | | [...] + + | [facility] - | [address] | [place] | [phone] | | [place] | | | | + + + + + documented in this encounter Visit Diagnoses Not on filedocumented in this encounter"
--- OUTSIDE RECORDS SUMMARY | ~2019-12-22 | XMS | Encounter Summary ---
Demographics + + + | Address | [address] | | | [place] [address] | + + + | Home Phone [...] + | Roxana Bo | ECON | [address] | | | | | [place] | | | | | [address] | | + + + + + Care Team Providers + +------+ + | Care Bread Slicer Machine Name | Role | Phone | [...] | 2016 | on | Center at [facility] [address] | [address] | (Outside labs from | | | | [address] | [place], [place] | [facility] 01/03/16.) | | | | for Health and | [address] | | | | | [facility] 2 | [phone] | | | | | [place], [place] | | | | | | [address] | | | | | | [phone] | | | +--------+ + + + [...] Rogers | | | | | | [place], [place] | | | | | | [address] | | | | | | [phone] | | | | | | | [...] [address] | [place] | [phone] | | [place] | | | | [...] [address] | [place] | [phone] | | [place] | | | | + + + + + documented in this encounter Visit Diagnoses Not on filedocumented in this encounter"
--- OUTSIDE RECORDS SUMMARY | ~2019-12-22 | XMS | Encounter Summary ---
Demographics + + + | Address | [address] | | | [place] [address] | + + + | Home Phone [...] + | Roxana Bo | ECON | [address] | | | | | [place] | | | | | [address] | | + + + + + Care Team Providers + +------+ + | Care Tire Worker Name | Role | Phone | [...] | | [address] | [place], [place] | | | | | for Health and | [address] | | | | | [facility] 2 | [phone] | | | | | [place], [place] | | | | | | [address] | | | | | | [phone] | | | +--------+ + + + [...] Rogers | | | | | | [place], [place] | | | | | | [address] | | | | | | [phone] | | | | | | | [...] [address] | [place], [place] | [phone] | | [place] | | | | [...] + + | [facility] - | [address] | [place] | [phone] | | [place] | | | | + + + + + documented in this encounter Visit Diagnoses Not on filedocumented in this encounter"
--- OUTSIDE RECORDS SUMMARY | ~2019-12-22 | XMS | Encounter Summary ---
Demographics + + + | Address | [address] | | | [place] [address] | + + + | Home Phone [...] + | Roxana Bo | ECON | [address] | | | | | [place] | | | | | [address] | | + + + + + Care Team Providers + +------+ + | Care History Teacher Name | Role | Phone | + +------+ + | Ventura Carrasquillo MD | PCP | | + +------+ + Encounter Details +--------+ + + + + | Date | Type | Department | Care Team | Description | +--------+ + + + + | 09/13/ | Abstract | Digestive Health | Lake Dennis MD | | | 2019 | | [place] at [facility] [address]85 | [address] | | | | | [address] | [facility] [place] | | | | | for Health and | [address] | | | | | Healing, Building 2 | [phone] | | | | | [place], [place] | | | | | | [address] | | | | | | [phone] | | | +--------+ + + + [...] Rogers | | | | | | [place], [place] | | | | | | [address] | | | | | | [phone] | | | | | | | | +--------+---------+ + + + documented as of this encounter Visit Diagnoses Not on filedocumented in this encounter"
--- OUTSIDE RECORDS SUMMARY | ~2019-12-22 | XMS | Encounter Summary ---
Demographics + + + | Address | [address] | | | [place] [address] | + + + | Home Phone [...] + | Roxana Bo | ECON | [address] | | | | | [place] | | | | | [address] | | + + + + + Care Team Providers + +------+ + | Care Beef Lugger Name | Role | Phone | + [...] | | 2016 | | Center at [facility] [address]85 | [address] | | | | | [address] | [place], [place] | | | | | [facility] and | [address] | | | | | [facility], [facility] 2 | [phone] | | | | | [place], [place] | | | | | | [address] | | | | | | [phone] | | | +--------+ + + + [...] Rogers | | | | | | [place] | | | | | | [address] | | | | | | [phone] | | | | | | | | +--------+---------+ + + + documented as of this encounter Visit Diagnoses Not on filedocumented in this encounter"
--- OUTSIDE RECORDS SUMMARY | ~2019-12-22 | XMS | Encounter Summary ---
Demographics + + + | Address | [address] | | | [place] [address] | + + + | Home Phone [...] + | Roxana Bo | ECON | [address] | | | | | [place] | | | | | [address] | | + + + + + Care Team Providers + +------+ + | Care Glassware Maker Demonstrator Name | Role | Phone | + +------+ + | Ventura Carrasquillo MD | PCP | | + +------+ + Encounter Details +--------+ + + + + | Date | Type | Department | Care Team | Description | +--------+ + + + + | 07/02/ | Document-Sc | Health Information | Other, Faculty | | | 2012 | anned | Services [address] | [phone] | | | | | [address] | | | | | | Mailcode: [id number] | | | | | | [facility] | | | | | | [place], [place] | | | | | | [address] | | | | | | [phone] | | | +--------+ + + + [...] [address] | | | | | | [place], [place] | | | | | | [address] | | | | | | [phone] | | | | | | | [...]
--- OUTSIDE RECORDS SUMMARY | ~2019-12-22 | XMS | Encounter Summary ---
Demographics + + + | Address | [address] | | | [place] [address] | + + + | Home Phone [...] + | Roxana Bo | ECON | [address] | | | | | [place] | | | | | [address] | | + + + + + Care Team Providers + +------+ + | Care Director Of Accounting Name | Role | Phone | + +------+ + | Ventura Carrasquillo MD | PCP | | + +------+ + Encounter Details +--------+ + + + + | Date | Type | Department | Care Team | Description | +--------+ + + + + | 10/04/ | Document-Sc | UNKNOWN DEPARTMENT | Unknown . | | | 2013 | anned | [address] | | | | | | [address] | | | | | | [place], [place] | | | | | | [address] | | | +--------+ + + + [...] [place] | | | | | | [address] | | | | | | [phone] | | | | | | | [...]
--- OUTSIDE RECORDS SUMMARY | ~2019-12-22 | XMS | Encounter Summary ---
Demographics + + + | Address | [address] | | | [place] [address] | + + + | Home Phone [...] + | Roxana Bo | ECON | [address] | | | | | [place] | | | | | [address] | | + + + + + Care Team Providers + +------+ + | Care Certified Ophthalmic Surgical Assistant Name | Role | Phone | + +------+ + | Ventura Carrasquillo MD | PCP | | + +------+ + Reason for Visit + + + | Reason | Comments | + + + | Follow-up visit | | + + + Office Visit - E/M Services (Routine) +--------+--------+ + + + + | Status | Reason | Specialty | Diagnoses / | Referred By | Referred To | | | | | Procedures | Contact | Contact | +--------+--------+ + + + + | Closed | | Hepatology | Diagnoses | No | Sonny | | | | | Autoimmune | Referring | MD [place] | | | | | hepatitis | Provider Per | [address] | | | | | Primary | Patient NO | Ave | | | | | biliary | REFERRING | [place], [place] | | | | | cirrhosis | PROVIDER PER | [address] | | | | | Procedures | PT | Phone: | | | | | [place] | | [phone] | | | | | OFFICE/OUTPT | | Fax: | | | | | | | [phone] | | | | | VISIT,EST,LE | [...] | 2019 | Visit | Center at [facility] [address]85 | [address] | (HCC) (Primary Dx); | | | | [address] | [place], [place] | Primary biliary | | | | for [facility] and | [address] | cholangitis (HCC) | | | | [facility] 2 | [phone] | | | | | [place], [place] | | | | | | [address] | | | | | | [phone] | | | +--------+---------+ + + + [...] 1,000 Units by mo uth once daily. cevkfgjrlneb-imcaziq-jwks-lutein (CENTRUM SILVER ULTRA WOMEN'S) Oral Tablet Take 1 Tab by mouth once daily. mv-mn/lutein/zeax/bilber/hb277 (MACULAR HEALTH FORMULA ORAL) Take by mouth. Gonvick-3 Fatty Acids-Vitamin E (FISH OIL) 1,000 mg [...] doses of Imuran and ursodiol 2. Labs [id number] 3. RTC in 1 yr Counseling Time: [...] | Visit | | [address] | | | | | | [place], [place] | | | | | | [address] | | | | | | [phone] | | | | | | | | +--------+---------+ + + + documented as of this encounter Visit Diagnoses + + | Diagnosis | + + | Autoimmune hepatitis (HCC) - Primary Autoimmune hepatitis | + + | Primary biliary cholangitis (HCC) | + + documented in this encounter
--- OUTSIDE RECORDS SUMMARY | ~2019-12-22 | XMS | Encounter Summary ---
Demographics + + + | Address | [address] | | | [place] [address] | + + + | Home Phone [...] + | Roxana Bo | ECON | [address] | | | | | [place] | | | | | [address] | | + + + + + Care Team Providers + +------+ + | Care Public Administration Teacher Name | Role | Phone | [...] | | 2019 | | Center at [facility] [address] | [address] | Review | | | | [address] | [place], [place] | | | | | for Health and | [address] | | | | | [place] [address] | [phone] | | | | | [place], [place] | | | | | | [address] | | | | | | [phone] | | | +--------+ + + + [...] [address] | | | | | | [place], [place] | | | | | | [address] | | | | | | [phone] | | | | | | | | +--------+---------+ + + + documented as of this encounter Visit Diagnoses Not on filedocumented in this encounter"
--- OUTSIDE RECORDS SUMMARY | ~2019-12-22 | XMS | Encounter Summary ---
Demographics + + + | Address | [address] | | | [place] [address] | + + + | Home Phone [...] + | Roxana Bo | ECON | [address] | | | | | [place] | | | | | [address] | | + + + + + Care Team Providers + +------+ + | Care Plastic Welder Name | Role | Phone | + +------+ + | Ventura Carrasquillo MD | PCP | | + +------+ + Encounter Details +--------+------+ + + + | Date | Type | Department | Care Team | Description | +--------+------+ + + + | 02/14/ | Lab | Laboratory at [facility] | | Nonspecific Abnormal | | 2008 | | [address] | | Results of Liver | | | | [place] [facility] | | Function Study | | | | and Healing, | | | | | | Building 2 | | | | | | [place], [place] | | | | | | [address] | | | | | | [phone] | | | +--------+------+ + + + [...] [address] | | | | | | [place], [place] | | | | | | [address] | | | | | | [phone] | | | | | | | [...] Nonspecific | Results for this | | FINGERSTICK | e | 1:37 PM | Abnormal [...] | + +--------+ + + + | VJS-MTBYLUZ-NIZN,SER | Routin | 02/14/2009 | | Results [...] + | [facility] ([facility]) | [address] | | [facility] [address] [facility] | DEPARTMENT | | [place] [address] | PATHOLOGY | + + + + + + + + | Performing | Address | City/State/Zipcode | Phone Number | | Organization | | | | + + + + + | [facility] | [address] | [place] [address] | | | PATHOLOGY | [address] [...] NDNA Ab Titer effective 07/11/08. [facility] ([facility] | DEPARTMENT OF | | Lab) [facility] [place] [address] | PATHOLOGY | | [place] [place] [address] | | | [facility] ([facility]) [facility] [address] | | | [address] [facility] [place] [address] | | | | | + + + + + + + + | Performing | Address | City/State/Zipcode | Phone Number | | Organization | | | | + + + + + | [facility] | [address] | [place] [address] | | | PATHOLOGY | [address] | | | + + + + + VGX-PXLUMGE-PQQS,SERUM (02/14/2009 1:37 PM PDT) + +-------+ + [...] | Protein Electrophoresis, Serum Reference Range | [facility] | | Change effective 05/30/08 [facility] ([facility]) | DEPARTMENT OF | | [facility] [place] [address] [facility] | PATHOLOGY | | [place] [address] Reference Range Change | | | effective 05/30/08 [facility] ([facility]) | | | [facility] [place] [address] [address] [facility] | | | [place] [address] | | + + + + + + + + | Performing | Address | City/State/Zipcode | Phone Number | | Organization | | | | + + + + + | [facility] | [address] | [place] [address] | | | PATHOLOGY | [address] [...] [facility] | | Change effective 05/30/08 [facility] ([facility] [facility]) | DEPARTMENT OF | | [facility] [place] [address] | PATHOLOGY | | [place] [address] | | + + + + + + + + | Performing | Address | City/State/Zipcode | Phone Number | | Organization | | | | + + + + + | [facility] | [address] | [place] [address] | | | PATHOLOGY | [address] [...] | NDNA Ab Titer effective 07/11/08. [facility] ([facility] DEPARTMENT | | Lab) [facility] [place] [address] | PATHOLOGY | | [place] [address] | | | R[facility] ([facility]) [facility] [address] | | | [address] [place] [address] | | | | | + + + + + + + + | Performing | Address | City/State/Zipcode | Phone Number | | Organization | | | | + + + + + | [facility] | [address] | [place] [address] | | | PATHOLOGY | [address] [...] At | + + + | RLB ([facility]) [address] | [place] | | [place] [address] [address] [facility] | DEPARTMENT OF | | [place] [address] | PATHOLOGY | + + + + + + + + | Performing | Address | City/State/Zipcode | Phone Number | | Organization | | | | + + + + + | [facility] DEPARTMENT OF | [address] | [place] [address] | | | PATHOLOGY | [address] [...] [facility] | | | | PT INR Therapeutic [...] + + + + + | [facility] DEPARTMENT OF | [address] | [place] [address] | | | PATHOLOGY | [address] | | | + + + + + | [facility] DEPARTMENT OF | [address] | [place] [address] | | | PATHOLOGY | [address] [...] | + + + + + | [facility] | [address] [address] | [place] [address] | | | PATHOLOGY | [address] | | | + + + + + | [facility] | [address] | [place] [address] | | | PATHOLOGY | [address] [...] | + + + + + | [facility] | [address] [facility] | [place] [address] | | | PATHOLOGY | [address] | | | + + + + + | [facility] | [address] [facility] | [place] [address] | | | PATHOLOGY | [address] | | | + + + + + documented in this encounter Visit Diagnoses + + | Diagnosis | + + | Nonspecific abnormal results of liver function study | + + documented in this encounter"
--- OUTSIDE RECORDS SUMMARY | ~2019-12-22 | XMS | Encounter Summary ---
Demographics + + + | Address | [address] | | | [place] [address] | + + + | Home Phone [...] + | Roxana Bo | ECON | [address] | | | | | [place] | | | | | [address] | | + + + + + Care Team Providers + +------+ + | Care Delivery Person Name | Role | Phone | [...] | | [address] | [place], [place] | | | | | for Health and | [address] | | | | | [facility], [facility] 2 | [phone] | | | | | [place], [place] | | | | | | [address] | | | | | | [phone] | | | +--------+ + + + [...] [place] | | | | | | [address] | | | | | | [phone] | | | | | | | [...] | [address] | [place], [place] | | | MARISELA | 120 | [address] | | + + + + + [...] | | | [place] | 120 | [address] | | + + + + + [...] | | | [place] | 120 | [address] | | + + + + + documented in this encounter Visit Diagnoses Not on filedocumented in this encounter"
--- OUTSIDE RECORDS SUMMARY | ~2019-12-22 | XMS | Encounter Summary ---
Demographics + + + | Address | [address] | | | [place] [address] | + + + | Home Phone [...] + | Roxana Bo | ECON | [address] | | | | | [place] | | | | | [address] | | + + + + + Care Team Providers + +------+ + | Care General Claims Agent Name | Role | Phone | [...] | 2017 | on | Center at [facility] [address] | [address] | (Outside labs from | | | | [address] | [place], [place] | [facility] 09/08/16) | | | | for Health and | [address] | | | | | [place] [address] | [phone] | | | | | [place], [place] | | | | | | [address] | | | | | | [phone] | | | +--------+ + + + [...] Rogers | | | | | | [place], [place] | | | | | | [address] | | | | | | [phone] | | | | | | | [...] [address] | [place] | [phone] | | [place] | | | | [...] + + | [facility] - | [address] | [place] | [phone] | | [place] | | | | + + + + + documented in this encounter Visit Diagnoses Not on filedocumented in this encounter"
--- OUTSIDE RECORDS SUMMARY | ~2019-12-22 | XMS | Clinical Summary ---
Demographics + + + | Address | [address] | | | [place] [address] | + + + | Home Phone | | + + + | Preferred Language | Unknown | + + + | Marital Status | Unknown | + + + | Spiritism Affiliation | Unknown | + + + | Race | Unknown | + + + | Ethnic Group | Unknown | + + + Author + + + | Author | [facility] | | | and Charlie | + + + | Organization | [facility] | | | and [place] | + + + | Address | Unknown | + + + | Phone | Unavailable | + + + Care Team Providers + +------+ + | Care Armature Varnisher Name | Role | Phone | + +------+ + PCP | Unavailable | + +------+ + Allergies Not on File Medications Not on file Active Problems Not on file Social History + +-------+ +--------+------+ | Tobacco [...] on file | | + + + Last Filed Vital Signs + + + + + | Vital Sign | Reading | Time Taken | Comments | + + + + + | Blood Pressure | 141/91 | 08/19/2016 3:54 PM | | | | | PDT | | + + + + + | Pulse | 77 | 08/19/2016 3:54 PM | | | | | PDT | | + + + + + | Temperature | - | - | | + + + + + | Respiratory Rate | 16 | 08/19/2016 3:54 PM | | | | | PDT | | + + + + + | Oxygen Saturation | - | - | | + + + + + | Inhaled Oxygen | - | - | | | Concentration | | | | + + + + + | Weight | 80.4 kg (177 lb 3.2 | 08/19/2016 3:54 PM | | | | oz) | PDT | | + + + + + | Height | 160 cm (5' 3") | 08/19/2016 3:54 PM | | | | | PDT | | + + + + + | Body Mass Index | 31.39 | 08/19/2016 3:54 PM | | | | | PDT | | + + + + + Plan of Treatment + + +-------+ + | Health Maintenance | Due Date | Last | Comments | | | | Done | | + + +-------+ + | Vaccine: | | | | | Dtap/Tdap/Td (1 - | 1 | | | | Tdap) | | | | + + +-------+ + | Vaccine: Zoster (1 | | | | | of 2) | 2 | | | + + +-------+ + | Breast Cancer | | | | | Screening | 7 | | | + + +-------+ + | Vaccine: | | | | | Pneumococcal 65+ (1 | 7 | | | | of 1 - PPSV23) | | | | + + +-------+ + | Vaccine: Influenza | | | | | (#1) | 0 | | | + + +-------+ + Results Not on filefrom Last 3 Months Advance Directives + + + + + | Type | Date Recorded | Patient | Explanation | | | | [employer] Assembler | | + + + + + | Power of | | | | | Supervisor Buffing And Pasting | | | | + + + + + | Advance | | | | | Directive | | | | + + + + +
--- OUTSIDE RECORDS SUMMARY | ~2019-12-22 | XMS | Encounter Summary ---
Demographics + + + | Address | [address] | | | [place] [address] | + + + | Home Phone [...] + | Roxana Bo | ECON | [address] | | | | | [place] | | | | | [address] | | + + + + + Care Team Providers + +------+ + | Care Mail Sorter Name | Role | Phone | + [...] | 2018 | on | Center at [facility] [address]85 | [address] | (Outside labs from | | | | [address] | [place], [place] | [facility] 01/08/18.) | | | | for Health and | [address] | | | | | [place] [address] | [phone] | | | | | [place], [place] | | | | | | [address] | | | | | | [phone] | | | +--------+ + + + [...] Rogers | | | | | | [place], [place] | | | | | | [address] | | | | | | [phone] | | | | | | | [...] [address] | [place] | [phone] | | [place] | | | | [...] + + | [facility] - | [address] | [place] | [phone] | | [place] | | | | + + + + + documented in this encounter Visit Diagnoses Not on filedocumented in this encounter"
--- OUTSIDE RECORDS SUMMARY | ~2019-12-22 | XMS | Encounter Summary ---
Demographics + + + | Address | [address] | | | [place] [address] | + + + | Home Phone [...] + | Roxana Bo | ECON | [address] | | | | | [place] | | | | | [address] | | + + + + + Care Team Providers + +------+ + | Care Desizing Pad Operator Name | Role | Phone | [...] | | [address] | [place], [place] | | | | | for Health and | [address] | | | | | [facility] 2 | [phone] | | | | | [place], [place] | | | | | | [address] | | | | | | [phone] | | | +--------+ + + + [...] Rogers | | | | | | [place], [place] | | | | | | [address] | | | | | | [phone] | | | | | | | [...] | [address] | [place], [place] | | | [place] | 120 | [address] | | + + + + + [...] | | | [place] | 120 | [address] | | + + + + + [...] | | | [place] | 120 | [address] | | + + + + + documented in this encounter Visit Diagnoses Not on filedocumented in this encounter"
--- OUTSIDE RECORDS SUMMARY | ~2019-12-22 | XMS | Encounter Summary ---
Demographics + + + | Address | [address] | | | [place] [address] | + + + | Home Phone [...] + | Roxana Bo | ECON | [address] | | | | | [place] | | | | | [address] | | + + + + + Care Team Providers + +------+ + | Care Plant Wrapper Name | Role | Phone | + +------+ + | Ventura Carrasquillo MD | PCP | | + +------+ + Encounter Details +--------+ + + + + | Date | Type | Department | Care Team | Description | +--------+ + + + + | 10/07/ | Telephone | Digestive Health | Lake Dennis MD | | | 2011 | | [place] [address] [address] | [address] | | | | | [address] | [place], [place] | | | | | for Health and | [address] | | | | | [facility], [facility] 2 | [phone] | | | | | [place], [place] | | | | | | [address] | | | | | | [phone] | | | +--------+ + + + [...] Rogers | | | | | | [place] | | | | | | [address] | | | | | | [phone] | | | | | | | | +--------+---------+ + + + documented as of this encounter Visit Diagnoses Not on filedocumented in this encounter"
--- OUTSIDE RECORDS SUMMARY | ~2019-12-22 | XMS | Encounter Summary ---
Demographics + + + | Address | [address] | | | [place] [address] | + + + | Home Phone [...] + | Roxana Bo | ECON | [address] | | | | | [place] | | | | | [address] | | + + + + + Care Team Providers + +------+ + | Care Burial Agent Name | Role | Phone | [...] | 2013 | Encounter | Center at [facility] [address]85 | [address] | | | | | [address] | [place], [place] | | | | | for Health and | [address] | | | | | Healing, Building [address] | [phone] | | | | | [place], [place] | | | | | | [address] | | | | | | [phone] | | | +--------+ + + + [...] Rogers | | | | | | [place] | | | | | | [address] | | | | | | [phone] | | | | | | | | +--------+---------+ + + + documented as of this encounter Visit Diagnoses Not on filedocumented in this encounter"
--- OUTSIDE RECORDS SUMMARY | ~2019-12-22 | XMS | Encounter Summary ---
Demographics + + + | Address | [address] | | | [place] [address] | + + + | Home Phone [...] + | Roxana Bo | ECON | [address] | | | | | [place] | | | | | [address] | | + + + + + Care Team Providers + +------+ + | Care Supervisor Tank Storage Name | Role | Phone | + +------+ + | Ventura Carrasquillo MD | PCP | | + +------+ + Encounter Details +--------+ + + + + | Date | Type | Department | Care Team | Description | +--------+ + + + + | 08/19/ | Telephone | Digestive Health | Lake Dennis MD | | | 2010 | | [place] [address] [address] | [address] | | | | | [address] | [place], [place] | | | | | for Health and | [address] | | | | | [facility], [facility] 2 | [phone] | | | | | [place], [place] | | | | | | [address] | | | | | | [phone] | | | +--------+ + + + [...] Rogers | | | | | | [place] | | | | | | [address] | | | | | | [phone] | | | | | | | | +--------+---------+ + + + documented as of this encounter Visit Diagnoses Not on filedocumented in this encounter"
--- OUTSIDE RECORDS SUMMARY | ~2019-12-22 | XMS | Encounter Summary ---
Demographics + + + | Address | [address] | | | [place] [address] | + + + | Home Phone [...] + | Roxana Bo | ECON | [address] | | | | | [place] | | | | | [address] | | + + + + + Care Team Providers + +------+ + | Care Shrink Pit Operator Name | Role | Phone | + +------+ + | Ventura Carrasquillo MD | PCP | | + +------+ + Encounter Details +--------+ + + + + | Date | Type | Department | Care Team | Description | +--------+ + + + + | 07/02/ | Document-Sc | Health Information | Other, Faculty | | | 2012 | anned | Services 1970 | [phone] | | | | | [address] | | | | | | Mailcode: [id number] | | | | | | [facility] | | | | | | [place], [place] | | | | | | [address] | | | | | | [phone] | | | +--------+ + + + [...] Rogers | | | | | | [place], [place] | | | | | | [address] | | | | | | [phone] | | | | | | | [...]
--- OUTSIDE RECORDS SUMMARY | ~2019-12-22 | XMS | Encounter Summary ---
Demographics + + + | Address | [address] | | | [place] [address] | + + + | Home Phone [...] + | Roxana Bo | ECON | [address] | | | | | [place] | | | | | [address] | | + + + + + Care Team Providers + +------+ + | Care Practical Nursing Teacher Name | Role | Phone | [...] | | | Procedures | FAMILY | [place], [place] | | | | | CONSULT TO | MEDICINE | [address] | | | | | HEPATOLOGY | [address] | Phone: | | | | | liver bx | [address] | [phone] | | | | | | [place], | Fax: | | | | | | [place] [address] | [phone] | | | | | | Phone: | | | | | | | [phone] | | | | | | | Fax: | | | | | | | [phone] | | +--------+ + + + + + Encounter Details +--------+---------+ + + + | Date | Type | Department | Care Team | Description | +--------+---------+ + + + | 02/12/ | Office | Digestive Health | Lake Ontiveros MD | Autoimmune hepatitis | | 2009 | Visit | Center at [facility] [address] | [address] | (HCC); Primary | | | | [address] | [facility] [place] | biliary cirrhosis | | | | for Health and | [address] | (HCC) | | | | [place] [address] | [phone] | | | | | [facility] [place] | | | | | | [address] | | | | | | [phone] | | | +--------+---------+ + + + [...] Ave | | | | | | [place], [place] | | | | | | [address] | | | | | | [phone] | | | | | | | [...] | | | [place] | 120 | [address] | | + + + + + [...] | | | [place] | 120 | [address] | | + + + + + [...] | [facility] - | [address] | [place] | | | [place] | 120 | [address] | | + + + + + [...]
--- OUTSIDE RECORDS SUMMARY | ~2019-12-22 | XMS | Encounter Summary ---
Demographics + + + | Address | [address] | | | [place] [address] | + + + | Home Phone [...] + | Roxana Bo | ECON | [address] | | | | | [place] | | | | | [address] | | + + + + + [...] | 2010 | on | Center at [facility] [address]35 | [address] | | | | | [address] | [place], [place] | | | | | for Health and | [address] | | | | | [facility], [facility] 2 | [phone] | | | | | [place], [place] | | | | | | [address] | | | | | | [phone] | | | +--------+ + + + [...] [place] | | | | | | [address] | | | | | | [phone] | | | | | | | | +--------+---------+ + + + documented as of this encounter Visit Diagnoses Not on filedocumented in this encounter"
--- OUTSIDE RECORDS SUMMARY | ~2019-12-22 | XMS | Encounter Summary ---
Demographics + + + | Address | [address] | | | [place] [address] | + + + | Home Phone [...] + | Roxana Bo | ECON | [address] | | | | | [place] | | | | | [address] | | + + + + + Care Team Providers + +------+ + | Care Sausage Linker Name | Role | Phone | + [...] Results of Liver | | | | [place] [facility] | | Function Study | | | | and Healing, | | | | | | Building [address] | | | | | | [place], [place] | | | | | | [address] | | | | | | [phone] | | | +--------+------+ + + + [...] Rogers | | | | | | [place], [place] | | | | | | [address] | | | | | | [phone] | | | | | | | [...] | + +--------+ + + + | [id number],SER | Routin | 02/14/2009 | | Results [...] ([facility]) | PAULA | | [facility] [address] [facility] | DEPARTMENT | | [place] [address] | PATHOLOGY | + + + + + + + + | Performing | Address | City/State/Zipcode | Phone Number | | Organization | | | | + + + + + | [facility] | [address] | [place] [address] | | | PATHOLOGY | [address] [...] NDNA Ab Titer effective 07/11/08. RLB ([facility] | DEPARTMENT OF | | Lab) [facility] [place] [address] [address] | PATHOLOGY | | [place] [facility] [place] [address] | | | RLB ([facility]) [facility] [place] | | | [address] [address] [facility] [place] [address] | | | | | + + + + + + + + | Performing | Address | City/State/Zipcode | Phone Number | | Organization | | | | + + + + + | [facility] | [address] | [place] [address] | | | PATHOLOGY | [address] | | | + + + + + [id number],SERUM (02/14/2009 1:37 PM PDT) + +-------+ + [...] Protein Electrophoresis, Serum Reference Range | [facility] | | Change effective 05/30/08 R[facility] ([facility] [address] [facility]) | DEPARTMENT OF | | [facility] [place] [address] [place] [facility] | PATHOLOGY | | [place] [address] Reference Range Change | | | effective 05/30/08 [facility] ([facility]) | | | [facility] [place] [address] [place] [address] [facility] | | | [place] [address] | | + + + + + + + + | Performing | Address | City/State/Zipcode | Phone Number | | Organization | | | | + + + + + | [facility] | [address] | [place] [address] | | | PATHOLOGY | [address] [...] Way Lab) | DEPARTMENT OF | | [facility] [place] [address] | PATHOLOGY | | [place] [address] | | + + + + + + + + | Performing | Address | City/State/Zipcode | Phone Number | | Organization | | | | + + + + + | [facility] | [address] | [place] [address] | | | PATHOLOGY | [address] [...] | NDNA Ab Titer effective 07/11/08. RLB ([facility] DEPARTMENT | | Lab) [facility] [place] [address] [address] | PATHOLOGY | | [place] [address] | | | [facility] ([facility]) [facility] [place] | | | [address] [place] [address] | | | | | + + + + + + + + | Performing | Address | City/State/Zipcode | Phone Number | | Organization | | | | + + + + + | [facility] | [address] | [place] [address] | | | PATHOLOGY | [address] [...] At | + + + | RLB ([facility]) Rub[place] | PA[place]A | | [place] [address] [address] [facility] | DEPARTMENT OF | | [place] [address] | PATHOLOGY | + + + + + + + + | Performing | Address | City/State/Zipcode | Phone Number | | Organization | | | | + + + + + | [facility] DEPARTMENT OF | [address] | [place] [address] | | | PATHOLOGY | [address] [...] + + + + + | [facility] DEPARTMENT OF | [address] | [place] [address] | | | PATHOLOGY | [address] | | | + + + + + | [facility] DEPARTMENT OF | [address] | [place] [address] | | | PATHOLOGY | [address] [...] + + + + | [facility] | [address] [address] | [place] [address] | | | PATHOLOGY | [address] | | | + + + + + | [facility] | [address] | [place] [address] | | | PATHOLOGY | [address] [...] + + + + | [facility] | [address] [facility] | [place] [address] | | | PATHOLOGY | [address] | | | + + + + + | [facility] | [address] [facility] | [place] [address] | | | PATHOLOGY | [address] | | | + + + + + documented in this encounter Visit Diagnoses + + | Diagnosis | + + | Nonspecific abnormal results of liver function study | + + documented in this encounter"
--- OUTSIDE RECORDS SUMMARY | ~2019-12-22 | XMS | Encounter Summary ---
Demographics + + + | Address | [address] | | | [place] [address] | + + + | Home Phone [...] + | Roxana Bo | ECON | [address] | | | | | [place] | | | | | [address] | | + + + + + Care Team Providers + +------+ + | Care Nurse Research Name | Role | Phone | + [...] | 2009 | on | Center at [facility] [address] | [address] | (05/21/09, 04/19/09 | | | | [address] | [place], [place] | [facility]/ Ph# | | | | for Health and | [address] | [phone]) | | | | [facility], [facility] 2 | [phone] | | | | | [place], [place] | | | | | | [address] | | | | | | [phone] | | | +--------+ + + + [...] | | 2019 | Visit | | [address] | | | | | | [place], [place] | | | | | | [address] | | | | | | [phone] | | | | | | | [...] [address] | [place] | [phone] | | [place] | | | | [...] + + | [facility] - | [address] | [place] | [phone] | | [place] | | | | + + + + + | [facility] - | | [place], [place] | | | [place] | | [...] | | | [place] | | + +---------+ + + + [...] [address] | [place], [place] | [phone] | | [place] | | | | + + + + + | [facility] - | | [place], [place] | | | [place] | | | | + + + + + documented in this encounter Visit Diagnoses Not on filedocumented in this encounter"
--- OUTSIDE RECORDS SUMMARY | ~2019-12-22 | XMS | Encounter Summary ---
Demographics + + + | Address | [address] | | | [place] [address] | + + + | Home Phone [...] + | Roxana Bo | ECON | [address] | | | | | [place] | | | | | [address] | | + + + + + Care Team Providers + +------+ + | Care Element Burner Name | Role | Phone | + [...] | [address] | [place], [place] | | | | | for Health and | [address] | | | | | [facility], [facility] 2 | [phone] | | | | | [place], [place] | | | | | | [address] | | | | | | [phone] | | | +--------+ + + + [...] | | | | | | [place], [place] | | | | | | [address] | | | | | | [phone] | | | | | | | [...] | | | [place] | 120 | [address] | | + + + + + [...] | | | [place] | 120 | [address] | | + + + + + documented in this encounter Visit Diagnoses Not on filedocumented in this encounter"
--- OUTSIDE RECORDS SUMMARY | ~2019-12-22 | XMS | Encounter Summary ---
Demographics + + + | Address | [address] | | | [place] [address] | + + + | Home Phone [...] + | Roxana Bo | ECON | [address] | | | | | [place] | | | | | [address] | | + + + + + Care Team Providers + +------+ + | Care Retail Service Representative Name | Role | Phone [...] | 2016 | Encounter | Center at [facility] [address]85 | [address] | Work/test results | | | | [address] | [place], [place] | | | | | for Health and | [address] | | | | | Healing, Building 2 | [phone] | | | | | [place], [place] | | | | | | [address] | | | | | | [phone] | | | +--------+ + + + [...] Rogers | | | | | | [place] | | | | | | [address] | | | | | | [phone] | | | | | | | | +--------+---------+ + + + documented as of this encounter Visit Diagnoses Not on filedocumented in this encounter"
--- OUTSIDE RECORDS SUMMARY | ~2019-12-22 | XMS | Encounter Summary ---
Demographics + + + | Address | [address] | | | [place] [address] | + + + | Home Phone [...] + | Roxana Bo | ECON | [address] | | | | | [place] | | | | | [address] | | + + + + + Care Team Providers + +------+ + | Care Road Crew Member Name | Role | Phone | + +------+ + | Vetnura Carrasquillo MD | PCP | | + [...] 2008 | | Center at [facility] [address]85 | [address] | teaching, guidance, | | | | [facility] | [place], [place] | and counseling; | | | | for Health and | [address] | Medication | | | | [facility], [facility] 2 | [phone] | management | | | | [place], [place] | | | | | | [address] | | | | | | [phone] | | | +--------+ + + + [...] | | | | | | [place], [place] | | | | | | [address] | | | | | | [phone] | | | | | | | | +--------+---------+ + + + documented as of this encounter Visit Diagnoses Not on filedocumented in this encounter"
--- OUTSIDE RECORDS SUMMARY | ~2019-12-22 | XMS | Encounter Summary ---
Demographics + + + | Address | [address] | | | [place] [address] | + + + | Home Phone [...] + | Roxana Bo | ECON | [address] | | | | | [place] | | | | | [address] | | + + + + + Care Team Providers + +------+ + | Care Fireworks Display Specialist Name | Role | Phone | [...] 2020 | | Center at [facility] [address] | [address] | Review | | | | [address] | [place], [place] | | | | | for Health and | [address] | | | | | [place] [address] | [phone] | | | | | [place], [place] | | | | | | [address] | | | | | | [phone] | | | +--------+ + + + [...] Rogers | | | | | | [place], [place] | | | | | | [address] | | | | | | [phone] | | | | | | | | +--------+---------+ + + + documented as of this encounter Visit Diagnoses Not on filedocumented in this encounter"
--- OUTSIDE RECORDS SUMMARY | ~2019-12-22 | XMS | Encounter Summary ---
Demographics + + + | Address | [address] | | | [place] [address] | + + + | Home Phone [...] + | Roxana Bo | ECON | [address] | | | | | [place] | | | | | [address] | | + + + + + Care Team Providers + +------+ + | Care Retail Salesworker Name | Role | Phone | + [...] | | 2017 | | Center at [facility] [address] | [address] | | | | | [address] | [place], [place] | | | | | for Health and | [address] | | | | | [facility] 2 | [phone] | | | | | [place], [place] | | | | | | [address] | | | | | | [phone] | | | +--------+ + + + [...] Rogers | | | | | | [place], [place] | | | | | | [address] | | | | | | [phone] | | | | | | | | +--------+---------+ + + + documented as of this encounter Visit Diagnoses Not on filedocumented in this encounter"
--- OUTSIDE RECORDS SUMMARY | ~2019-12-22 | XMS | Encounter Summary ---
Demographics + + + | Address | [address] | | | [place] [address] | + + + | Home Phone [...] + | Roxana Bo | ECON | [address] | | | | | [place] | | | | | [address] | | + + + + + Care Team Providers + +------+ + | Care Chisel Grinder Name | Role | Phone | + [...] | 2018 | on | Center at [facility] [address] | [address] | (Outside labs from | | | | [address] | [place], [place] | [facility] 01/08/18.) | | | | for Health and | [address] | | | | | [place] [address] | [phone] | | | | | [place], [place] | | | | | | [address] | | | | | | [phone] | | | +--------+ + + + [...] Rogers | | | | | | [place], [place] | | | | | | [address] | | | | | | [phone] | | | | | | | [...] [address] | [place] | [phone] | | [place] | | | | [...] + + | [facility] - | [address] | [place] | [phone] | | [place] | | | | + + + + + documented in this encounter Visit Diagnoses Not on filedocumented in this encounter"
--- OUTSIDE RECORDS SUMMARY | ~2019-12-22 | XMS | Encounter Summary ---
Demographics + + + | Address | [address] | | | [place] [address] | + + + | Home Phone [...] + | Roxana Bo | ECON | [address] | | | | | [place] | | | | | [address] | | + + + + + Care Team Providers + +------+ + | Care Intern Retail Name | Role | Phone | + +------+ + | Ventura Carrasquillo MD | PCP | | + +------+ + Encounter Details +--------+ + + + + | Date | Type | Department | Care Team | Description | +--------+ + + + + | 07/01/ | Document-Sc | Health Information | Unknown . | | | 2013 | anned | Services [id number] | | | | | | [address] | | | | | | Mailcode: [id number] | | | | | | [facility] | | | | | | [place], [place] | | | | | | [address] | | | | | | [phone] | | | +--------+ + + + [...] Rogers | | | | | | [place], [place] | | | | | | [address] | | | | | | [phone] | | | | | | | [...]
--- OUTSIDE RECORDS SUMMARY | ~2019-12-22 | XMS | Encounter Summary ---
Demographics + + + | Address | [address] | | | [place] [address] | + + + | Home Phone [...] + | Roxana Bo | ECON | [address] | | | | | [place] | | | | | [address] | | + + + + + Care Team Providers + +------+ + | Care Rental Car Ferry Driver Name | Role | Phone | + +------+ + | Ventura Carrasquillo MD | PCP | | + +------+ + Encounter Details +--------+ + + + + | Date | Type | Department | Care Team | Description | +--------+ + + + + | 10/01/ | Document-Sc | UNKNOWN DEPARTMENT | Unknown . | | | 2012 | anned | [address] | | | | | | [address] | | | | | | [place], [place] | | | | | | [address] | | | +--------+ + + + [...] [place] | | | | | | [address] | | | | | | [phone] | | | | | | | [...]
--- OUTSIDE RECORDS SUMMARY | ~2019-12-22 | XMS | Encounter Summary ---
Demographics + + + | Address | [address] | | | [place] [address] | + + + | Home Phone [...] + | Roxana Bo | ECON | [address] | | | | | [place] | | | | | [address] | | + + + + + Care Team Providers + +------+ + | Care Maintenance Porter Name | Role | Phone | + [...] | | 2017 | | Center at [facility] [address]85 | [address] | | | | | [address] | [place], [place] | | | | | for Health and | [address] | | | | | [facility] 2 | [phone] | | | | | [place], [place] | | | | | | [address] | | | | | | [phone] | | | +--------+ + + + [...] Rogers | | | | | | [place], [place] | | | | | | [address] | | | | | | [phone] | | | | | | | | +--------+---------+ + + + documented as of this encounter Visit Diagnoses Not on filedocumented in this encounter"
--- OUTSIDE RECORDS SUMMARY | ~2019-12-22 | XMS | Encounter Summary ---
Demographics + + + | Address | [address] | | | [place] [address] | + + + | Home Phone [...] + | Roxana Bo | ECON | [address] | | | | | [place] | | | | | [address] | | + + + + + Care Team Providers + +------+ + | Care Security Compliance Specialist Name | Role | Phone [...] + + + + | 12/03/ | Director Utilization Management | Digestive Health | Lake Dennis MD | Autoimmune hepatitis | | 2010 | | Center at [facility] [address] | [address] | (HCC); Primary | | | | [address] | [place], [place] | biliary cirrhosis | | | | for Health and | [address] | (HCC) | | | | [facility], [place] [address] | [phone] | | | | | [place], [place] | | | | | | [address] | | | | | | [phone] | | | +--------+ + + + [...] Rogers | | | | | | [place], [place] | | | | | | [address] | | | | | | [phone] | | | | | | | | +--------+---------+ + + + documented as of this encounter Visit Diagnoses + + | Diagnosis | + + | Autoimmune hepatitis (HCC) Autoimmune hepatitis | + + | Primary biliary cirrhosis (HCC) Biliary cirrhosis | + + documented in this encounter"
--- OUTSIDE RECORDS SUMMARY | ~2019-12-22 | XMS | Encounter Summary ---
Demographics + + + | Address | [address] | | | [place] [address] | + + + | Home Phone [...] + | Roxana Bo | ECON | [address] | | | | | [place] | | | | | [address] | | + + + + + Care Team Providers + +------+ + | Care Security Patrol Driver Name | Role | Phone | [...] | 2020 | Encounter | Center at [facility] [address] | [address] | | | | | [address] | [facility] [place] | | | | | for Health and | [address] | | | | | Healing, Building 2 | [phone] | | | | | [place], [place] | | | | | | [address] | | | | | | [phone] | | | +--------+ + + + [...] Rogers | | | | | | [place] | | | | | | [address] | | | | | | [phone] | | | | | | | | +--------+---------+ + + + documented as of this encounter Visit Diagnoses Not on filedocumented in this encounter"
--- OUTSIDE RECORDS SUMMARY | ~2019-12-22 | XMS | Encounter Summary ---
Demographics + + + | Address | [address] | | | [place] [address] | + + + | Home Phone [...] + | Roxana Bo | ECON | [address] | | | | | [place] | | | | | [address] | | + + + + + Care Team Providers + +------+ + | Care Rubber Ball Finisher Name | Role | Phone | + +------+ + | Ventura Carrasquillo MD | PCP | | + +------+ + Reason for Visit + + + | Reason | Comments | + + + | Blood Test Results | [facility] 07/04/14 CBC [...] Results | | 2014 | | Center [place] [address] [address] | [address] | ([facility] | | | | [address] | [place], [place] | 07/04/14 CBC and | | | | for Health and | [address] | [facility] Blood Test | | | | [facility] 2 | [phone] | Results ([facility] - | | | | [place], [place] | | OUTSIDE LAB 07/04/14 | | | | [address] | | [facility] results) | | | | [phone] | | | +--------+ + + + [...] Rogers | | | | | | [place], [place] | | | | | | [address] | | | | | | [phone] | | | | | | | | +--------+---------+ + + + documented as of this encounter Visit Diagnoses Not on filedocumented in this encounter"
--- OUTSIDE RECORDS SUMMARY | ~2019-12-22 | XMS | Encounter Summary ---
Demographics + + + | Address | [address] | | | [place] [address] | + + + | Home Phone [...] + | Roxana Bo | ECON | [address] | | | | | [place] | | | | | [address] | | + + + + + Care Team Providers + +------+ + | Care Insulation Machine Operator Name | Role | Phone [...] | | [address] | [place], [place] | | | | | for Health and | [address] | | | | | [facility] 2 | [phone] | | | | | [place], [place] | | | | | | [address] | | | | | | [phone] | | | +--------+ + + + [...] Rogers | | | | | | [place], [place] | | | | | | [address] | | | | | | [phone] | | | | | | | [...] [address] | [place] | [phone] | | [place] | | | | [...] [address] | [place], [place] | [phone] | | [place] | | | | + + + + + documented in this encounter Visit Diagnoses Not on filedocumented in this encounter"
--- OUTSIDE RECORDS SUMMARY | ~2019-12-22 | XMS | Encounter Summary ---
Demographics + + + | Address | [address] | | | [place] [address] | + + + | Home Phone [...] + | Roxana Bo | ECON | [address] | | | | | [place] | | | | | [address] | | + + + + + Care Team Providers + +------+ + | Care Tower Crane Operator Name | Role | Phone | [...] | | | Procedures | FAMILY | [place], [place] | | | | | CONSULT TO | MEDICINE | [address] | | | | | HEPATOLOGY | [address] | Phone: | | | | | liver bx | [address] | [phone] | | | | | | [place], | Fax: | | | | | | [place] [address] | [phone] | | | | | | Phone: | | | | | | | [phone] | | | | | | | Fax: | | | | | | | [phone] | | +--------+ + + + + + Encounter Details +--------+---------+ + + + | Date | Type | Department | Care Team | Description | +--------+---------+ + + + | 12/07/ | Office | Digestive Health | Lake Ontiveros MD | Autoimmune hepatitis | | 2010 | Visit | Center at [facility] [address] | [address] | (HCC); Primary | | | | [address] | [facility] [place] | biliary cirrhosis | | | | for Health and | [address] | (HCC) | | | | [place] [address] | [phone] | | | | | [place], [place] | | | | | | [address] | | | | | | [phone] | | | +--------+---------+ + + + [...] 1 Applicator to affected area once daily. Ztlckkajkqn-Xiczoluyq-Ucj C-Mn (GLUCOSAMINE CHONDROITIN MAXSTR) 500-400 mg Oral Capsule Take 2 Tabs by mouth once daily. rqphpyyjtmeq-iihapml-smppgos-folic acid chewable 200-0.4 mg Oral Tablet, Chewable Take 2 Tabs by mouth once daily. mhcrsbxabnsi-viykaax-hsri-lutein (CENTRUM SILVER ULTRA WOMEN'S) Oral Tablet Take [...] Plan 1) cont current meds 2) labs [id number]: CMP, CBC, plts, diff, INR 3) RTC [...] | | | | | | [place], [place] | | | | | | [address] | | | | | | [phone] | | | | | | | | +--------+---------+ + + + documented as of this encounter Visit Diagnoses + + | Diagnosis | + + | Autoimmune hepatitis (HCC) Autoimmune hepatitis | + + | Primary biliary cirrhosis (HCC) Biliary cirrhosis | + + documented in this encounter
--- OUTSIDE RECORDS SUMMARY | ~2019-12-22 | XMS | Encounter Summary ---
Demographics + + + | Address | [address] | | | [place] [address] | + + + | Home Phone [...] + | Roxana Bo | ECON | [address] | | | | | [place] | | | | | [address] | | + + + + + Care Team Providers + +------+ + | Care 1St Grade Teacher Name | Role | Phone | [...] | 2013 | on | Center at [facility] [address] | [address] | (Out side labs from | | | | [address] | [place], [place] | [facility] | | | | for Health and | [address] | 01/04/14.) | | | | [facility], [facility] 2 | [phone] | | | | | [place], [place] | | | | | | [address] | | | | | | [phone] | | | +--------+ + + + [...] Rogers | | | | | | [place], [place] | | | | | | [address] | | | | | | [phone] | | | | | | | [...]
--- OUTSIDE RECORDS SUMMARY | ~2019-12-22 | XMS | Encounter Summary ---
Demographics + + + | Address | [address] | | | [place] [address] | + + + | Home Phone [...] + | Roxana Bo | ECON | [address] | | | | | [place] | | | | | [address] | | + + + + + Care Team Providers + +------+ + | Care Occupational Psychologist Name | Role | Phone | + +------+ + | Ventura Carrasquillo MD | PCP | | + +------+ + Encounter Details +--------+ + + + + | Date | Type | Department | Care Team | Description | +--------+ + + + + | 04/05/ | Document-Sc | UNKNOWN DEPARTMENT | Unknown . | | | 2012 | anned | [address] | | | | | | [address] | | | | | | [place], [place] | | | | | | [address] | | | +--------+ + + + [...] Rogers | | | | | | [place], [place] | | | | | | [address] | | | | | | [phone] | | | | | | | [...]
--- OUTSIDE RECORDS SUMMARY | ~2019-12-22 | XMS | Encounter Summary ---
Demographics + + + | Address | [address] | | | [place] [address] | + + + | Home Phone [...] + | Roxana Bo | ECON | [address] | | | | | [place] | | | | | [address] | | + + + + + Care Team Providers + +------+ + | Care Clay Preparation Supervisor Name | Role | Phone | [...] | on | Center at [facility] [address]65 | [address] | | | | | [address] | [place], [place] | | | | | for Health and | [address] | | | | | [facility], [facility] 2 | [phone] | | | | | [place], [place] | | | | | | [address] | | | | | | [phone] | | | +--------+ + + + [...] Rogers | | | | | | [place], [place] | | | | | | [address] | | | | | | [phone] | | | | | | | [...]
--- OUTSIDE RECORDS SUMMARY | ~2019-12-22 | XMS | Encounter Summary ---
Demographics + + + | Address | [address] | | | [place] [address] | + + + | Home Phone [...] + | Roxana Bo | ECON | [address] | | | | | [place] | | | | | [address] | | + + + + + Care Team Providers + +------+ + | Care Bread Wrapping Machine Feeder Name | Role | Phone | + +------+ + | Ventura Carrasquillo MD | PCP | | + +------+ + Encounter Details +--------+ + + + + | Date | Type | Department | Care Team | Description | +--------+ + + + + | 10/12/ | Abstract | Digestive Health | Lake Dennis MD | | | 2011 | | [place] [address] [address] | [address] | | | | | [address] | [facility] [place] | | | | | for Health and | [address] | | | | | [facility], Building 2 | [phone] | | | | | [place], [place] | | | | | | [address] | | | | | | [phone] | | | +--------+ + + + [...] Rogers | | | | | | [place] | | | | | | [address] | | | | | | [phone] | | | | | | | | +--------+---------+ + + + documented as of this encounter Visit Diagnoses Not on filedocumented in this encounter"
--- OUTSIDE RECORDS SUMMARY | ~2019-12-22 | XMS | Encounter Summary ---
Demographics + + + | Address | [address] | | | [place] [address] | + + + | Home Phone [...] + | Roxana Bo | ECON | [address] | | | | | [place] | | | | | [address] | | + + + + + Care Team Providers + +------+ + | Care Property Custodian Name | Role | Phone | + [...] | 2010 | on | Center at [facility] [address] | [address] | | | | | [address] | [place], [place] | | | | | for Health and | [address] | | | | | [facility], [facility] 2 | [phone] | | | | | [place], [place] | | | | | | [address] | | | | | | [phone] | | | +--------+ + + + [...] [place] | | | | | | [address] | | | | | | [phone] | | | | | | | | +--------+---------+ + + + documented as of this encounter Visit Diagnoses Not on filedocumented in this encounter"
--- OUTSIDE RECORDS SUMMARY | ~2019-12-22 | XMS | Encounter Summary ---
Demographics + + + | Address | [address] | | | [place] [address] | + + + | Home Phone [...] + | Roxana Bo | ECON | [address] | | | | | [place] | | | | | [address] | | + + + + + Care Team Providers + +------+ + | Care Loan Documentation Specialist Name | Role | Phone | [...] | 2019 | Encounter | Center at [facility] [address] | [address] | | | | | [address] | [place], [place] | | | | | for Health and | [address] | | | | | Healing, Building 2 | [phone] | | | | | [place], [place] | | | | | | [address] | | | | | | [phone] | | | +--------+ + + + [...] Rogers | | | | | | [place], [place] | | | | | | [address] | | | | | | [phone] | | | | | | | [...]
--- OUTSIDE RECORDS SUMMARY | ~2019-12-22 | XMS | Encounter Summary ---
Demographics + + + | Address | [address] | | | [place] [address] | + + + | Home Phone [...] + | Roxana Bo | ECON | [address] | | | | | [place] | | | | | [address] | | + + + + + Care Team Providers + +------+ + | Care Spray Booth Operator Name | Role | Phone | + +------+ + | Ventura Carrasquillo MD | PCP | | + +------+ + Encounter Details +--------+ + + + + | Date | Type | Department | Care Team | Description | +--------+ + + + + | 04/07/ | Documentati | Digestive Health | Clinic, | | | 2010 | on | Center at [facility] [address]456 | Gastroenterology | | | | | [address] [facility] | | | | | | for Health and | | | | | | Healing, Building 2 | | | | | | [place], [place] | | | | | | [address] | | | | | | [phone] | | | +--------+ + + + [...] [place] | | | | | | [address] | | | | | | [phone] | | | | | | | | +--------+---------+ + + + documented as of this encounter Visit Diagnoses Not on filedocumented in this encounter"
--- OUTSIDE RECORDS SUMMARY | ~2019-12-22 | XMS | Encounter Summary ---
Demographics + + + | Address | [address] | | | [place] [address] | + + + | Home Phone [...] + | Roxana Bo | ECON | [address] | | | | | [place] | | | | | [address] | | + + + + + Care Team Providers + +------+ + | Care Shingles Roofer Helper Name | Role | Phone | [...] | | 2016 | | Center at [facility] [address] | [address] | | | | | [address] | [place], [place] | | | | | [facility] and | [address] | | | | | [facility], [facility] 2 | [phone] | | | | | [place], [place] | | | | | | [address] | | | | | | [phone] | | | +--------+ + + + [...] | | | | | | [place] | | | | | | [address] | | | | | | [phone] | | | | | | | | +--------+---------+ + + + documented as of this encounter Visit Diagnoses Not on filedocumented in this encounter"
--- OUTSIDE RECORDS SUMMARY | ~2019-12-22 | XMS | Encounter Summary ---
Demographics + + + | Address | [address] | | | [place] [address] | + + + | Home Phone [...] + | Roxana Bo | ECON | [address] | | | | | [place] | | | | | [address] | | + + + + + Care Team Providers + +------+ + | Care Bobbin Dumper Name | Role | Phone | + +------+ + | Ventura aCrrasquillo MD | PCP | | + +------+ [...] | 2013 | on | Center at [facility] [address] | [address] | (Out side labs from | | | | [address] [facility] | [place], [place] | [facility] lab. | | | | for Health and | [address] | 07/01/13.) | | | | Healing, Building 2 | [phone] | | | | | [place], [place] | | | | | | [address] | | | | | | [phone] | | | +--------+ + + + [...] [place] | | | | | | [address] | | | | | | [phone] | | | | | | | [...] - | [address] | [place], [place] | [phone] | | [place] | | | | [...] [address] | [place] | [phone] | | [place] | | | | + + + + + documented in this encounter Visit Diagnoses Not on filedocumented in this encounter"
--- OUTSIDE RECORDS SUMMARY | ~2019-12-22 | XMS | Encounter Summary ---
Demographics + + + | Address | [address] | | | [place] [address] | + + + | Home Phone [...] + | Roxana Bo | ECON | [address] | | | | | [place] | | | | | [address] | | + + + + + Care Team Providers + +------+ + | Care Heel Seat Sander Name | Role | Phone | + [...] | | 2010 | | Center at [facility] [address] | [address] | (ursodiol) | | | | [address] | [place], [place] | | | | | for Health and | [address] | | | | | [place] [address] | [phone] | | | | | [place], [place] | | | | | | [address] | | | | | | [phone] | | | +--------+--------+ + + + [...] Rogers | | | | | | [place], [place] | | | | | | [address] | | | | | | [phone] | | | | | | | | +--------+---------+ + + + documented as of this encounter Visit Diagnoses Not on filedocumented in this encounter"
--- OUTSIDE RECORDS SUMMARY | ~2019-12-22 | XMS | Encounter Summary ---
Demographics + + + | Address | [address] | | | [place] [address] | + + + | Home Phone [...] + | Roxana Bo | ECON | [address] | | | | | [place] | | | | | [address] | | + + + + + [...] | | | biliary | REFERRING | [place], [place] | | | | | cirrhosis | PROVIDER PER | [address] | | | | | Procedures | PT | Phone: | | | | | [place] | | [phone] | | | | | OFFICE/OUTPT | | Fax: | | | | | | | [phone] | | | | | VISIT,EST,LE | [...] | 2019 | Visit | Center at [facility] [address] | [address] | (HCC) (Primary Dx); | | | | [address] | [place], [place] | Primary biliary | | | | for [facility] and | [address] | cholangitis (HCC) | | | | [facility] 2 | [phone] | | | | | [place], [place] | | | | | | [address] | | | | | | [phone] | | | +--------+---------+ + + + [...] 1,000 Units by mo uth once daily. xndhctfqlxyc-mbvvtdm-lzbq-lutein (CENTRUM SILVER ULTRA WOMEN'S) Oral Tablet Take 1 Tab by mouth once daily. mv-mn/lutein/zeax/bilber/hb277 (MACULAR HEALTH FORMULA ORAL) Take by mouth. [place]-3 Fatty Acids-Vitamin E (FISH OIL) 1,000 mg [...] doses of Imuran and ursodiol 2. Labs [id number] 3. RTC in 1 yr Counseling Time: [...] [place] | | | | | | [place], [place] | | | | | | [address] | | | | | | [phone] | | | | | | | | +--------+---------+ + + + documented as of this encounter Visit Diagnoses + + | Diagnosis | + + | Autoimmune hepatitis (HCC) - Primary Autoimmune hepatitis | + + | Primary biliary cholangitis (HCC) | + + documented in this encounter
--- OUTSIDE RECORDS SUMMARY | ~2019-12-22 | XMS | Encounter Summary ---
Demographics + + + | Address | [address] | | | [place] [address] | + + + | Home Phone [...] + | Roxana oB | ECON | [address] | | | | | [place] | | | | | [address] | | + + + + + Care Team Providers + +------+ + | Care Data Coordinator Name | Role | Phone | [...] Rd | | | | | | [place], [place] | | | | | | [address] | | | +--------+ + + + [...] Rogers | | | | | | [place], [place] | | | | | | [address] | | | | | | [phone] | | | | | | | [...]
--- OUTSIDE RECORDS SUMMARY | ~2019-12-22 | XMS | Encounter Summary ---
Demographics + + + | Address | [address] | | | [place] [address] | + + + | Home Phone [...] + | Roxana Bo | ECON | [address] | | | | | [place] | | | | | [address] | | + + + + + Care Team Providers + +------+ + | Care Hamper Maker Machine Name | Role | Phone | [...] | | [address] | [place], [place] | | | | | for Health and | [address] | | | | | [facility], [facility] 2 | [phone] | | | | | [place], [place] | | | | | | [address] | | | | | | [phone] | | | +--------+ + + + [...] Rogers | | | | | | [place], [place] | | | | | | [address] | | | | | | [phone] | | | | | | | [...] | [address] | [place], [place] | | | [place] | 120 | [address] | | + + + + + [...] | | | [place] | 120 | [address] | | + + + + + [...] | | | [place] | 120 | [address] | | + + + + + documented in this encounter Visit Diagnoses Not on filedocumented in this encounter"
--- OUTSIDE RECORDS SUMMARY | ~2019-12-22 | XMS | Encounter Summary ---
Demographics + + + | Address | [address] | | | [place] [address] | + + + | Home Phone [...] + | Roxana Bo | ECON | [address] | | | | | [place] | | | | | [address] | | + + + + + Care Team Providers + +------+ + | Care Geothermal Production Manager Name | Role | Phone | + +------+ + | Ventura Carrasquillo MD | PCP | | + +------+ + Encounter Details +--------+ + + + + | Date | Type | Department | Care Team | Description | +--------+ + + + + | 08/19/ | Telephone | [facility] | [place] MD | | | 2010 | | [place] [id number] | [address] | | | | | [address] | [place], [place] | | | | | [facility] and | [address] | | | | | [facility] | [phone] | | | | | [place], [place] | | | | | | [address] | | | | | | [phone] | | | +--------+ + + + [...] [place] | | | | | | [place] | | | | | | [address] | | | | | | [phone] | | | | | | | | +--------+---------+ + + + documented as of this encounter Visit Diagnoses Not on filedocumented in this encounter"
--- OUTSIDE RECORDS SUMMARY | ~2019-12-22 | XMS | Encounter Summary ---
Demographics + + + | Address | [address] | | | [place] [address] | + + + | Home Phone [...] + | Roxana Bo | ECON | [address] | | | | | [place] | | | | | [address] | | + + + + + Care Team Providers + +------+ + | Care Graduate Teaching Assistant Name | Role | Phone | + +------+ + | Ventura Carrasquillo MD | PCP | | + +------+ + Encounter Details +--------+ + + + + | Date | Type | Department | Care Team | Description | +--------+ + + + + | 07/06/ | Abstract | Digestive Health | Lake Dennis MD | | | 2011 | | [place] [address] | [address] | | | | | [address] | [facility] [place] | | | | | for Health and | [address] | | | | | [facility], [address] | [phone] | | | | | [place], [place] | | | | | | [address] | | | | | | [phone] | | | +--------+ + + + [...] [place] | | | | | | [place] | | | | | | [address] | | | | | | [phone] | | | | | | | | +--------+---------+ + + + documented as of this encounter Visit Diagnoses Not on filedocumented in this encounter"
--- OUTSIDE RECORDS SUMMARY | ~2019-12-22 | XMS | Encounter Summary ---
Demographics + + + | Address | [address] | | | [place] [address] | + + + | Home Phone [...] + | Roxana Bo | ECON | [address] | | | | | [place] | | | | | [address] | | + + + + + Care Team Providers + +------+ + | Care Core Java Engineer Name | Role | Phone | + +------+ + | Ventura Carrasquillo MD | PCP | | + +------+ + Encounter Details +--------+ + + + + | Date | Type | Department | Care Team | Description | +--------+ + + + + | 07/06/ | Abstract | Digestive Health | Lake Dennis MD | | | 2011 | | [place] [address] | [address] | | | | | [address] | [facility] [place] | | | | | for Health and | [address] | | | | | [facility], [address] | [phone] | | | | | [place], [place] | | | | | | [address] | | | | | | [phone] | | | +--------+ + + + [...] [place] | | | | | | [place] | | | | | | [address] | | | | | | [phone] | | | | | | | | +--------+---------+ + + + documented as of this encounter Visit Diagnoses Not on filedocumented in this encounter"
--- OUTSIDE RECORDS SUMMARY | ~2019-12-22 | XMS | Encounter Summary ---
Demographics + + + | Address | [address] | | | [place] [address] | + + + | Home Phone [...] + | Roxana Bo | ECON | [address] | | | | | [place] | | | | | [address] | | + + + + + Care Team Providers + +------+ + | Care Tenter Frame Back Tender Name | Role | Phone | [...] | | | | | | [address] | | | | | | | [address] | | | | | | | [facility] [address] | | | | | | | [facility] | | | | | | | [facility] | | | | | | | [place], [place] | | | | | | | [address] | | | | | | | Phone: | | | | | | | [phone] | | | | | | | Fax: | | | | | | | [phone] | +--------+--------+ + + + + Encounter Details +--------+ + + + + | Date | Type | Department | Care Team | Description | +--------+ + + + + | 02/20/ | Hospital | [facility] [address] | Lake Dennis MD | | | 2008 | Encounter | [address] | [address] | | | | | [address] [facility] | [place], [place] | | | | | [place], [place] | [address] | | | | | [address] | [phone] | | | | | [phone] | | | | | | | [...] [place] | | | | | | [place], [place] | | | | | | [address] | | | | | | [phone] | | | | | | | [...] DEPARTMENT OF | [address] | [place] [address] | | | PATHOLOGY | [address] [...] | + + + + + | [facility] DEPARTMENT OF | [address] | [place] [address] | | | PATHOLOGY | [address] [...] [facility] | | | PATHOLOGY | Liver Samish Biopsy | | DEPARTMENT | | | | Final Pathologic | | OF | | | | Diagnosis:Liver, [place], | | PATHOLOGY | | | | [...] | + + + + + | [facility] | [address] | [place] [address] | | | PATHOLOGY | [address] | | | + + + + + documented in this encounter Visit Diagnoses Not on filedocumented in this encounter
--- OUTSIDE RECORDS SUMMARY | ~2019-12-22 | XMS | Encounter Summary ---
Demographics + + + | Address | [address] | | | [place] [address] | + + + | Home Phone [...] + | Roxana Bo | ECON | [address] | | | | | [place] | | | | | [address] | | + + + + + Care Team Providers + +------+ + | Care Warp Coiler Name | Role | Phone | + [...] | 2019 | Encounter | Center at [facility] [address] | [address] | | | | | [address] | [place], [place] | | | | | for Health and | [address] | | | | | Healing, [address] | [phone] | | | | | [place], [place] | | | | | | [address] | | | | | | [phone] | | | +--------+ + + + [...] [place] | | | | | | [place] | | | | | | [address] | | | | | | [phone] | | | | | | | | +--------+---------+ + + + documented as of this encounter Visit Diagnoses Not on filedocumented in this encounter"
--- OUTSIDE RECORDS SUMMARY | ~2019-12-22 | XMS | Encounter Summary ---
Demographics + + + | Address | [address] | | | [place] [address] | + + + | Home Phone [...] + | Roxana Bo | ECON | [address] | | | | | [place] | | | | | [address] | | + + + + + Care Team Providers + +------+ + | Care Hot Plate Plywood Press Feeder Name | Role | Phone | [...] | | [address] | [place], [place] | | | | | for Health and | [address] | | | | | [facility] | [phone] | | | | | [place], [place] | | | | | | [address] | | | | | | [phone] | | | +--------+ + + + [...] | | | | | | [place], [place] | | | | | | [address] | | | | | | [phone] | | | | | | | | +--------+---------+ + + + documented as of this encounter Visit Diagnoses Not on filedocumented in this encounter"
--- OUTSIDE RECORDS SUMMARY | ~2019-12-22 | XMS | Encounter Summary ---
Demographics + + + | Address | [address] | | | [place] [address] | + + + | Home Phone [...] + | Roxana Bo | ECON | [address] | | | | | [place] | | | | | [address] | | + + + + + Care Team Providers + +------+ + | Care Mold Worker Name | Role | Phone | [...] | 2013 | on | Center at [facility] [address] | [address] | (Out side labs from | | | | [address] | [place], [place] | [facility]. | | | | for Health and | [address] | 04/03/14.) | | | | Healing, [address] | [phone] | | | | | [place], [place] | | | | | | [address] | | | | | | [phone] | | | +--------+ + + + [...] | 2019 | Visit | | [address] | | | | | | [place], [place] | | | | | | [address] | | | | | | [phone] | | | | | | | [...] [address] | [place], [place] | [phone] | | [place] | | | | [...] + + | [facility] - | [address] | [place] | [phone] | | [place] | | | | + + + + + documented in this encounter Visit Diagnoses Not on filedocumented in this encounter"
--- OUTSIDE RECORDS SUMMARY | ~2019-12-22 | XMS | Encounter Summary ---
Demographics + + + | Address | [address] | | | [place] [address] | + + + | Home Phone [...] + | Roxana Bo | ECON | [address] | | | | | [place] | | | | | [address] | | + + + + + Care Team Providers + +------+ + | Care Renewable Energy Project Manager Name | Role | Phone | + +------+ + | Ventura Carrasquillo MD | PCP | | + +------+ + Encounter Details +--------+ + + + + | Date | Type | Department | Care Team | Description | +--------+ + + + + | 04/26/ | Abstract | Digestive Health | Lake Dennis MD | | | 2011 | | [place] [address] | [address] | | | | | [address] | [facility] [place] | | | | | for Health and | [address] | | | | | [facility], [address] | [phone] | | | | | [place], [place] | | | | | | [address] | | | | | | [phone] | | | +--------+ + + + [...] [place] | | | | | | [place] | | | | | | [address] | | | | | | [phone] | | | | | | | | +--------+---------+ + + + documented as of this encounter Visit Diagnoses Not on filedocumented in this encounter"
[2019-12-22] MEDS ORDERED: NORCO 5-325 TA1 EACH PO (18:33)
== END 2019-12-22 18:50 | disposition home or self-care (01) ==
LOC: ED 15:55
DX: S32.019A Unspecified fracture of first lumbar vertebra, initial encounter for closed fracture (principal); Z88.1 Allergy status to other antibiotic agents; Z79.899 Other long term (current) drug therapy; W19.XXXA Unspecified fall, initial encounter
CPT/HCPCS: 72100; 99283-25; A9270

== ENCOUNTER 2020-02-20 06:50 | Day surgery (SDC) | payer MEDICARE, OTHER ==
[~2020-02-20] VITALS: Ht 157.5 cm; Wt 78.0 kg
--- NOTE | 2020-02-20 09:27 | NUR ---
QUICKLY CONNECTED WITH PT AND [facility] STAFF WAITING. GAVE ENCOURGEMENT, PT REQUESTED PRAYER. WILL FOLLOW
--- NOTE | 2020-02-20 10:11 | NUR ---
02/20/20 1011 Sheets,Laura 0944 PT ARRIVED TO PACU, RESP ENEN AND UNLABORED ON 6L VIA MASK. PT REACTIVE TO TACTILE STIMULI. ON 6L VIA MASK.
--- NOTE | 2020-02-20 10:51 | NUR ---
PATIENT BACK TO ROOM FROM RECOVERY. PATIENT AWAKE AND ORIENTED. COMPLETED ASSESMENT. RATES PAIN 2/10 ON PAIN SCALE. URGE TO URINATE, AMBULATED STEADY TO BATHROOM. VOIDED 600 ML OF BLOOD TINGED URINE. PATIENT BACK TO ROOM EATING CRACKERS AND DRINKING WATER. REPORTS NO NAUSEA, AND NOW REPORTS NO PAIN AFTER URINATING.
--- NOTE | 2020-02-20 18:24 | OR ---
[facility] [address] [place], [place] [address] Signed DATE OF OPERATION: 02/20/2020 SURGEON: Juvenal Hays MD PREOPERATIVE DIAGNOSES: 1. Right flank pain, secondary to an intermittently obstructing 10 mm right renal calculus. 2. Multiple left renal calculi, including a 12 mm left renal pelvic calculus, asymptomatic. POSTOPERATIVE DIAGNOSES: 1. Right flank pain, secondary to an intermittently obstructing 10 mm right renal calculus. 2. Multiple left renal calculi, including a 12 mm left renal pelvic calculus, asymptomatic. PROCEDURES: 1. Diagnostic cystoscopy with right retrograde pyelogram. 2. Right flexible nephroureteroscopy with laser lithotripsy and basket extraction of stone fragments. 3. Insertion of an indwelling right ureteral stent into the right collecting system. ANESTHESIA: General. ESTIMATED BLOOD LOSS: Minimal. COMPLICATIONS: None. SPECIMENS: Multiple stone fragments of the right renal calculus sent to the lab for stone analysis. DRAINS: A 6 x 24 cm double-J ureteral stent inserted into the right collecting system. INDICATIONS FOR PROCEDURE: Ms. Springer is a very pleasant 69-year-old female with no prior history of nephrolithiasis, who presented to me with right-sided flank pain. She had undergone Electronically Signed By: JUVENAL HAYS MD 02/20/20 1824 PATIENT NAME: DALIA SPRINGER OPERATIVE REPORT DATE OF : 52 REPORT #: [id number] PHYSICIAN: JUVENAL HAYS MD PCP: LYNDSEY GONZALEZ MD REPORT IS CONFIDENTIAL AND NOT TO BE RELEASED WITHOUT AUTHORIZATION [facility] [address] [place], [place] [address] Signed imaging which revealed what at the time was thought to be a collection of stones measuring a total of 89 mm in the right kidney, along with another collection of stones in the left renal pelvis. The largest stone on the left side measured 12 mm, and appeared to be poised to move in the left ureter. I discussed all the various treatment options for management of nonobstructive calculi. Since she was experiencing a good deal of right-sided flank pain, the patient elected to have the right renal calculus treated first. She elected to undergo ureteroscopy with laser lithotripsy and basket extraction of stones in mid to late February. She presents today to undergo the aforementioned procedure. Her flank pain has worsened over time, and she says last night it was quite severe. She has otherwise been doing well and has no other complaints. OPERATIVE FINDINGS: On cystoscopy, there was no evidence of any suspicious masses, lesions, or stones. Bilateral ureteral orifices are in their normal anatomic location effluxing clear urine. Right retrograde pyelogram revealed a rather large approximately 10 mm stone present in the right renal pelvis. There is also some dilation of the pelvis and calices, consistent with intermittent obstruction of the ureter with this single large calculus. Ureteroscopy was performed and the 10 mm stone was successfully fragmented using a 270 micron fiber and holmium laser 8.8 settings. The stone fragmented completely and 98% of the stone burden was successfully removed via a ZeroTip basket. At the end of the procedure, a 6 x 24 cm double-J ureteral stent was inserted into the right collecting system under direct visualization without difficulty. DESCRIPTION OF PROCEDURE: After informed consent was obtained, the patient was taken back to the operating room. [facility] operating room table, where general anesthesia was induced. She was placed in the dorsal lithotomy position and her genitalia were prepped and draped in a standard sterile fashion. Using a 30-degree lens on a 22.5-Samoan introducer, a rigid cystoscope was inserted through the urethra into her bladder under direct visualization. Panendoscopic views of bladder were then obtained. Please see the above findings. Attention was then turned to the right ureteral orifice. A cone-tipped catheter was advanced to the right ureteral orifice and a right retrograde pyelogram was performed. Please see above findings. I did note a mild narrowing of the right UPJ; however, I was easily able to pass my cystoscope through the right UPJ suggesting no significant UPJ stenosis there. After the pyelogram was performed, I removed the cone-tipped catheter and advanced a 0.035 Sensor wire into the right collecting system. Over the wire, I passed a 13/15 ureteral access sheath under fluoroscopic guidance. The sheath was inserted without difficulty and I repeated Electronically Signed By: JUVENAL HAYS MD 02/20/20 1824 PATIENT NAME: DALIA SPRINGER OPERATIVE REPORT DATE OF : 52 REPORT #: [id number] PHYSICIAN: JUVENAL HAYS MD PCP: LYNDSEY GONZALEZ MD REPORT IS CONFIDENTIAL AND NOT TO BE RELEASED WITHOUT AUTHORIZATION [address] [address] Signed the retrograde pyelogram to confirm adequate placement of the sheath. I then inserted the ureteroscope into the sheath and up into the right collecting system. Once I made into the right renal pelvis, I immediately noted a single solitary large right renal calculus. A 270 micron fiber and a holmium laser were used to fragment the stone at 8 and 0.8 settings. The stone ultimately fragmented without too much difficulty. The stone fragments were then collected and extracted using a ZeroTip basket. This took a solid 1.5 hours to perform. Once I was satisfied that all the significant stone burden had been removed, I flushed rest of the stone dust out from the middle calyx and hopefully into the renal pelvis so that it may pass down the ureter with a stent in place. Once I was satisfied that all the significant stone burden had been extracted, I removed the ureteroscope and reinserted another Sensor wire through the sheath and into the right renal pelvis. The sheath was then removed fully intact, leaving the Sensor wire in place. Over the wire, I passed a 6 x 24 cm double-J ureteral stent into the patient's right collecting system. The stent was then placed in good position via pulling the indwelling Sensor wire and adequate coil was seen within the right renal pelvis and an adequate distal coil was also noted on cystoscopy. The patient's bladder was then drained and the stone fragments were placed in a specimen cup to be sent to the lab for stone analysis. The procedure was then terminated. The patient tolerated the procedure well without any complication. She will now be transferred to the postanesthesia care unit in stable condition. DISPOSITION: I discussed the details of today's surgery with the patient's and answered all of his questions. I told them that the stone was successfully extracted today and that she will need to keep the indwelling ureteral stent in place for approximately one week. On February 27, 2020, she may remove the indwelling ureteral stent using the string attached. She was sent home today with Cipro 500 mg p.o. b.i.d. for a total of 7 days, along with Percocet 5/325 dispense #30 q.4 to 6 hours p.r.n. pain. I told her it was very important to remain on the antibiotic for the entire 7 days given her history of orthopedic hardware. She will be scheduled to return to clinic in 4 to 6 weeks for her first postoperative evaluation. At that time, we will get her back on the schedule to undergo elective ureteroscopic extraction of her 12 mm left renal calculus. MD SUSIE Padgett/MODL /[id number] Electronically Signed By: JUVENAL HAYS MD 02/20/20 1824 PATIENT NAME: DALIA SPRINGER OPERATIVE REPORT DATE OF : 52 REPORT #: [id number] PHYSICIAN: JUVENAL HAYS MD PCP: LYNDSEY GONZALEZ MD REPORT IS CONFIDENTIAL AND NOT TO BE RELEASED WITHOUT AUTHORIZATION [address] [address] Signed Copies: ~ Electronically Signed By: JUVENAL HAYS MD 02/20/20 1824 PATIENT NAME: DALIA SPRINGER OPERATIVE REPORT DATE OF : 52 REPORT #: [id number] PHYSICIAN: JUVENAL HAYS MD PCP: LYNDSEY GONZALEZ MD REPORT IS CONFIDENTIAL AND NOT TO BE RELEASED WITHOUT AUTHORIZATION
== END 2020-02-20 11:45 | disposition home or self-care (01) ==
LOC: DS 06:50 → OPS 06:50 → DS 08:45 → OPS 11:45
PROVIDERS: ATTEND Urology
PROC: 0T768DZ Dilation of Right Ureter with Intraluminal Device, Via Natural or Artificial Opening Endoscopic (ICD-10-PCS; 2020-02-20)
PROC: 0TC38ZZ Extirpation of Matter from Right Kidney Pelvis, Via Natural or Artificial Opening Endoscopic (ICD-10-PCS; principal; 2020-02-20 06:45)
DX: N20.0 Calculus of kidney (principal); I10 Essential (primary) hypertension; E66.9 Obesity, unspecified; Z79.899 Other long term (current) drug therapy; Z68.31 Body mass index [BMI] 31.0-31.9, adult
CPT/HCPCS: 00910; 74420; 82365; C1769; C2617; J0696; J1100; J1790; J1885; J2250; J2405; J2704; J2765; J3010; J7121; Q9967

== ENCOUNTER 2020-05-07 06:20 | Day surgery (SDC) | payer MEDICARE, OTHER ==
[~2020-05-07] VITALS: Ht 157.5 cm; Wt 77.0 kg
--- NOTE | 2020-05-07 09:26 | NUR ---
05/07/20 0926 Emanuel,Laura 0917 PT ARRIVED TO PACU ON 6L VIA MASK, PT ASLEEP WITH ORAL AIRWAY IN PLACE. VSS. 0920 PT REACTIVE TO PAINFUL STIMULI AND PT MOVES HEAD, PT EASILY FALLS BACK TO SLEEP, ORAL AIRWAY REMAINS IN PLACE.
--- NOTE | 2020-05-07 09:45 | NUR ---
LE PATIENT TO ROOM FROM PACU. REPORT AT BEDSIDE FROM JAMEE FELDER. PATIENT DROWSY LYING ON RIGHT SIDE. REPORTS NO PAIN. PROVIDED ICE WATER AND SNACKS. WARM BLANKETS PROVIDED. CALL LIGHT WITHIN REACH. NO OTHER NEEDS AT THIST TIME.
--- NOTE | 2020-05-07 10:30 | NUR ---
PATIENT UP TO BATHROOM VOIDED 600 ML OF BLOOD TINGED URINE. PATIENT ABLE TO AMBULATE WELL TO BATHROOM AND BACK TO ROOM. CONTINUES TO REPORT NO JULIET. STATES " I FEEL SO MUCH RELIEF, AND IT DOESN'T EVEN BURN WHEN I PEE".
--- NOTE | 2020-05-07 11:00 | NUR ---
PATIENT BACK UP TO BATHROOM VOIDED 300 ML. PATIENT REPORTS FEELING BLADDER EMPTYING COMPLETELY. NO PAIN OR NAUSEA. PATIENT DRESSED SELF. PROVIDED DISCHARGE EDUCATION, ANSWERED QUESTIONS AND CONCERNS. PROVIDED WHEELCHAIR RIDE TO FRONT PATIENT TRANSFERED EASILY INTO CAR.
--- NOTE | 2020-05-07 11:27 | OR ---
[facility] [address] [place], [place] [address] Signed DATE OF OPERATION: 05/07/2020 SURGEON: Juvenal Hays MD PREOPERATIVE DIAGNOSES: 1. A 13 mm left renal calculus. 2. History of multiple right renal calculi, status post recent right ureteroscopy. POSTOPERATIVE DIAGNOSES: 1. A 13 mm left renal calculus. 2. History of multiple right renal calculi, status post recent right ureteroscopy. NAMES OF PROCEDURES: 1. Diagnostic cystoscopy with left retrograde pyelogram. 2. Left flexible nephroureteroscopy with laser lithotripsy and basket extraction of stone fragments. 3. Insertion of an indwelling left ureteral stent. ANESTHESIA: General. ESTIMATED BLOOD LOSS: Minimal. COMPLICATIONS: None. SPECIMENS: Fragments of the large left renal calculus, sent to the lab for stone analysis. DRAINS: A 6 x 22 cm double-J ureteral stent inserted in the left ureter. INDICATIONS FOR PROCEDURE: Ms. Springer is a very pleasant 69-year-old female who is well known to me. Earlier this year, she presented to me with right-sided flank pain and bilateral renal calculi. She was found to have multiple stones within the right renal pelvis along with a large 13 mm stone present in the left renal pelvis. She chose to have the right side done first in hopes that this would improve her right-sided flank pain. Her stones were successfully extracted on the right side, however, her flank pain never really ceased. Since that Electronically Signed By: JUVENAL HAYS MD 05/07/20 1127 PATIENT NAME: DALIA SPRINGER OPERATIVE REPORT DATE OF : 52 REPORT #: [id number] PHYSICIAN: JUVENAL HAYS MD PCP: LYNDSEY GONZALEZ MD REPORT IS CONFIDENTIAL AND NOT TO BE RELEASED WITHOUT AUTHORIZATION [facility] [address] [place] [id number] Signed time, her flank pain has been attributed to a musculoskeletal source. She now presents today to undergo elective extraction of her large 13 mm left renal calculus. OPERATIVE FINDINGS: 1. Diagnostic cystoscopy reveals no evidence of any suspicious masses, lesions, or stones. Bilateral ureteral orifices are in their normal anatomic location effluxing clear urine. 2. Left retrograde pyelogram revealed no evidence of any filling defects within the left ureter. There was however a very large round filling defect present within the left renal pelvis, consistent with her known 13 mm stone. Also, noted is mild calyceal blunting in the left kidney. 3. Left flexible nephroscopy revealed the presence of a very large calculus present within the left renal pelvis. The stone was fragmented using a 400 micron laser fiber and holmium laser settings of 8 and 0.8. The stone fragment with only mild difficulty. 98% of the stone burden was successfully extracted from the patient's left kidney today using a ZeroTip basket. 4. At the end of the procedure, a 6 x 22 cm double-J ureteral stent was inserted into the left collecting system under direct visualization without difficulty. DESCRIPTION OF PROCEDURE: After informed consent was obtained, the patient was taken back to the operating room. She was transferred from the [facility] to the operating room table, where general anesthesia was induced. She was placed in the dorsal lithotomy position and genitalia prepped and draped in a standard sterile fashion. Using a 30-degree lens on a 22.5 rigid introducer, rigid cystoscope was inserted through her urethra and into her bladder under direct visualization. Panendoscopic views of the bladder were then obtained including the lateral garcia, floor, dome and trigone areas. Please see above findings. Attention was turned to the left ureteral orifice. A cone-tipped catheter was used to perform a left retrograde pyelogram. Please see above findings. A 0.035 Sensor wire was inserted into the left ureter and up into the left collecting system under fluoroscopic guidance. Over the wire, a 13/15 ureteral access sheath was passed under fluoroscopic guidance without difficulty. A repeat left retrograde pyelogram was performed via the ureteral access sheath. Please see above finding. A flexible ureteroscope was then advanced through the sheath and into the left renal pelvis. The large left stone was immediately visualized. It was then fragmented using a holmium laser at 8 and 0.8 settings using a 400 micron laser fiber. The stone fragmented with only a very small amount of difficulty. Once the entire stone was fully fragmented, the portions of the stone were then extracted using a ZeroTip basket. There was a good deal of sand present within the kidney as well, which drained from the left renal pelvis via the ureteral access sheath. I was able to get all the significant stones from the left renal pelvis, overall about 98% of the stone burden. The remaining calculi were left in the form of very small particles that I was unable to basket successfully. These should Electronically Signed By: JUVENAL HAYS MD 05/07/20 1127 PATIENT NAME: DALIA SPRINGER OPERATIVE REPORT DATE OF : 52 REPORT #: [id number] PHYSICIAN: JUVENAL HAYS MD PCP: LYNDSEY GONZALEZ MD REPORT IS CONFIDENTIAL AND NOT TO BE RELEASED WITHOUT AUTHORIZATION [address] [place], [place] [address] Signed pass through the ureter without any difficulty. Once I was satisfied that all the stone burden had been removed, I withdrew the ureteroscope and passed a Sensor wire through the ureteral access sheath and into the left renal pelvis. The ureteral access sheath was then removed fully intact, leaving the wire behind. Over the wire, I passed a 6 x 22 cm double-J ureteral stent into the left ureter under direct visualization without difficulty. Once the Sensor wire was pulled, I was able to see a very nice coil within the left renal pelvis. The distal coil was noted in the bladder. I did pass the stent with a string attached, so that the patient will be able to remove the indwelling stent using the string attached on May 12, 2020. The patient's bladder was then drained and the cystoscope was removed. The procedure was then terminated. The patient tolerated the procedure well without any complication. She will now be transferred to the postanesthesia care unit in stable condition. DISPOSITION: I discussed the details of today's procedure with the patient's and answered all of his questions. I did tell him that today's surgery was very successful in that all of the significant stone burden was extracted from the left kidney. She now has an indwelling ureteral stent in place that will need to be removed using the string attached on May 12, 2020. He verbalized understanding of this today. She will be sent home today with Cipro 500 mg p.o. b.i.d. for a total of 7 days, along with oxycodone 5 mg one tablet p.o. q.4 to 6 hours p.r.n. pain, dispense #30. As stated above, she will remove her indwelling ureteral stent on her own in 5 days. Otherwise, she will be scheduled return to clinic on June 11, 2020 at 3:45 p.m. for her first postoperative visit. MD SUSIE Padgett/MODL /[id number] Copies: ~ Electronically Signed By: JUVENAL HAYS MD 05/07/20 1127 PATIENT NAME: DALIA SPRINGER OPERATIVE REPORT DATE OF : 52 REPORT #: [id number] PHYSICIAN: JUVENAL HAYS MD PCP: LYNDSEY GONZALEZ MD REPORT IS CONFIDENTIAL AND NOT TO BE RELEASED WITHOUT AUTHORIZATION
== END 2020-05-07 11:00 | disposition home or self-care (01) ==
LOC: DS 06:20 → OPS 06:20 → DS 06:45 → OPS 11:00
PROVIDERS: ATTEND Urology
DX: N20.0 Calculus of kidney (principal); N28.89 Other specified disorders of kidney and ureter; I10 Essential (primary) hypertension; J30.9 Allergic rhinitis, unspecified; K75.4 Autoimmune hepatitis; Z88.1 Allergy status to other antibiotic agents
CPT/HCPCS: 00918; 74018; 74420; 82365; C1769; C2617; J0690; J1100; J1885; J2001; J2405; J2704; J3010; J7121; Q9967

== ENCOUNTER 2021-08-30 07:05 | Day surgery (SDC) | payer MEDICARE, OTHER ==
[~2021-08-30] VITALS: Ht 157.5 cm; Wt 79.5 kg
[~2021-08-30 07:05] MED LIST changes: +BENZONATATE100 MG PO; +HYDROXYZINE HCL25 MG PO; +K-TAB ER20 MEQ PO; +METHOCARBAMOL500 MG PO; +OMEPRAZOLE20 MG PO; +POLYETHYLENE GL17 GM PO; +TURMERIC500 M2 PO; +TUSSI PO; +VENTOLIN HFA18 GM INH; +VIACTIV 650 MG1 EACH PO; -VITAMIN D31000 UNIT PO; +VITAMIN D350 MC3 PO
--- NOTE | 2021-08-30 08:34 | NUR ---
PT REPORTS KNEE REPLACEMENTS AND DR ORDERED ABX AND GIVEN. PT HAS BEEN UP TO BATHROOM.
--- NOTE | 2021-08-30 09:33 | NUR ---
08/30/21 0933 Daily Bocanegra 0919 PT TO PACU ALERT AND AWAKE DENIES PAIN OR NAUSEA 0930 O2 TURNED OFF PT MAINTAINS SATS ABOVE 95%. DR MOORE [facility], TECH TO COME OVER AND DRAW THOUGHT.
--- NOTE | 2021-09-02 17:29 | PATH ---
[facility] [address] [facility] [place], [place] [address] Signed SPECIMEN(S): A CECAL POLYP SPECIMEN(S): B ASCENDING/RIGHT COLON POLYP SPECIMEN(S): C TRANSVERSE COLON POLYP SPECIMEN(S): D DESCENDING/LEFT COLON POLYP SPECIMEN(S): E RECTAL POLYP SPECIMEN SOURCE: A. CECAL POLYP B. ASCENDING/RIGHT COLON POLYP C. TRANSVERSE COLON POLYP D. DESCENDING/LEFT COLON POLYP E. RECTAL POLYP CLINICAL HISTORY: Tubular adenoma of cecum in 2015. FINAL PATHOLOGIC DIAGNOSIS: A. Cecum, polyp, polypectomy: - Tubular adenoma. - Negative for high grade dysplasia or malignancy. B. Colon, right, polyp, polypectomy: - Tubular adenoma. - Negative for high grade dysplasia or malignancy. C. Colon, transverse, polyp, polypectomy: - Fragments of tubular adenoma. - Negative for high grade dysplasia or malignancy. D. Colon, left, polyp, polypectomy: - Fragments of tubular adenoma. - Negative for high grade dysplasia or malignancy. E. Rectum, polyp, polypectomy: - Hyperplastic polyp. - Negative for dysplasia or malignancy. NAL:[facility]:C2NR MICROSCOPIC EXAMINATION: Histologic sections of all submitted blocks are examined by light microscopy. These findings, together with the gross examination, support the pathologic diagnosis. GROSS DESCRIPTION: Five specimens are received in five containers, labeled "CI." PATIENT NAME: DALIA SPRINGER PATHOLOGY DATE OF : 52 REPORT #: [id number] PHYSICIAN: MEME PATHOLOGY PCP: JO ANN HORAN MD REPORT IS CONFIDENTIAL AND NOT TO BE RELEASED WITHOUT AUTHORIZATION [facility] [address] [place], [place] [address] Signed A. The specimen, labeled "CI, cecum polyps," is received in formalin and consists of two mitchell soft tissue fragments that measure 0.2 cm in greatest dimension. The specimen is entirely submitted in cassette (A1). B. The specimen, labeled "CI, right colon polyp," is received in formalin and consists of two mitchell soft tissue fragments that measure 0.1 to 0.2 cm in greatest dimension. The specimen is entirely submitted in cassette (B1). C. The specimen, labeled "CI, transverse colon polyp," is received in formalin and consists of four mitchell soft tissue fragments that measure 0.1 to 0.2 cm in greatest dimension. The specimen is entirely submitted in cassette (C1). D. The specimen, labeled "CI, left colon polyp," is received in formalin and consists of seven mitchell soft tissue fragments that measure 0.1 cm in greatest dimension. The specimen is entirely submitted in cassette (D1). E. The specimen, labeled "CI, rectum polyp," is received in formalin and consists of one mitchell soft tissue fragment that measures 0.1 cm in greatest dimension. The specimen is entirely submitted in cassette (E1). JS (under the direct supervision of a pathologist) The Gross Description was prepared using a voice recognition system. The report was reviewed for accuracy; however, sound-alike word errors, addition and/or deletions may occur. If there is any question about this report, please contact Client Services. PERFORMING LABORATORY: The technical component was performed by [facility], [address] [place] [id number] (CLIA# [id number]). [facility], [address] [address] (CLIA# [id number]). Diagnostician: Ramona Tarango MD Pathologist Electronically Signed 09/02/2021 Copies: PATIENT NAME: DALIA SPRINGER PATHOLOGY DATE OF : 52 REPORT #: [id number] PHYSICIAN: [facility] PATHOLOG[facility] PCP: JO ANN HORAN MD REPORT IS CONFIDENTIAL AND NOT TO BE RELEASED WITHOUT AUTHORIZATION [facility] [address] [place], [place] [address] Signed ~ PATIENT NAME: DALIA SPRINGER PATHOLOGY DATE OF : 52 REPORT #: [id number] PHYSICIAN: MEME PATHOLOGY PCP: JO ANN HORAN MD REPORT IS CONFIDENTIAL AND NOT TO BE RELEASED WITHOUT AUTHORIZATION
--- NOTE | 2021-09-04 11:40 | OR ---
[facility] [address] [place], [place] [address] Signed DATE OF OPERATION: 08/30/2021 SURGEON: Vincenzo Hraper MD PREOPERATIVE DIAGNOSIS: History of tubular adenoma of cecum 2016. POSTOPERATIVE DIAGNOSIS: Polyps x5. PROCEDURE: Total colonoscopy to cecum with cold morcellation polypectomy x3 and cold snare polypectomy x2. ANESTHESIA: Intravenous sedation; fentanyl 100 mcg and Versed 5 mg. INDICATION: This 71-year-old white woman is a patient of Dr. Jo Ann Horan who underwent colonoscopy by me in 2015 at which time she was found to have a tubular adenoma to the cecum as well as diverticulosis. She is admitted at this time for surveillance colonoscopy. She understands the risks of bleeding, infection, and perforation. FINDINGS: The prep was excellent. Complete colonoscopy was undertaken to the cecum without question. She had numerous scattered diverticula of the sigmoid and left colon. She had five polyps in total, one in the rectum, another in the left colon, another transverse, one in the right colon and two in the cecum. All were excised completely with combination of techniques. DESCRIPTION OF PROCEDURE: The patient was brought to the endoscopy suite and placed in the lateral decubitus position, given intravenous sedation to the point of slurred speech and nystagmus with full cardiopulmonary monitoring. Digital rectal examination was normal. An Olympus video colonoscope was passed in the rectum and manipulated through the sigmoid. This required additional sedation as dense diverticular changes were noted. The scope was ultimately advanced to the cecum. The ileocecal valve was easily identified as was the appendiceal orifice. There were two small polyps of the cecum, both excised with cold morcellation technique. The scope was withdrawn and the mid Electronically Signed By: VINCENZO HARPER MD 09/04/21 1140 PATIENT NAME: DALIA SPRINGER OPERATIVE REPORT DATE OF : 52 REPORT #: [id number] PHYSICIAN: VINCENZO HARPER MD PCP: JO ANN HORAN MD REPORT IS CONFIDENTIAL AND NOT TO BE RELEASED WITHOUT AUTHORIZATION [facility] [address] [place], [place] [address] Signed ascending colon was excised with cold snare technique. Further withdrawal allowed for visualization of another mid transverse colon similarly excised with cold snare technique. Further withdrawal showed a small polyp of the left colon which was excised with cold morcellation technique and ultimately retroflexed view of the rectum showed small rectal polyp, very low excised with cold morcellation technique, in aggregate five polyps were excised in total. CONCLUDING DIAGNOSES: 1. Extensive diverticulosis sigmoid and left colon. 2. Polyps x5. PLAN: Recommend repeat colonoscopy in three years, sooner if clinically indicated. She will return to the ongoing care of Dr. Horan otherwise. MD JOSE MANUEL Zaldivar/JULIENL /[id number] cc: Jo Ann Horan MD Copies: JO ANN HORAN DMD ~ Electronically Signed By: VINCENZO HARPER MD 09/04/21 1140 PATIENT NAME: DALIA SPRINGER OPERATIVE REPORT DATE OF : 52 REPORT #: [id number] PHYSICIAN: VINCENZO HARPER MD PCP: JO ANN HORAN MD REPORT IS CONFIDENTIAL AND NOT TO BE RELEASED WITHOUT AUTHORIZATION
== END 2021-08-30 10:15 | disposition home or self-care (01) ==
LOC: DS 07:05 → OPS 07:05 → DS 10:30 → OPS 11:00
PROVIDERS: ATTEND Surgery
PROC: 0DBP8ZX Excision of Rectum, Via Natural or Artificial Opening Endoscopic, Diagnostic (ICD-10-PCS; 2021-08-30)
PROC: 0DBK8ZX Excision of Ascending Colon, Via Natural or Artificial Opening Endoscopic, Diagnostic (ICD-10-PCS; 2021-08-30)
PROC: 0DBL8ZX Excision of Transverse Colon, Via Natural or Artificial Opening Endoscopic, Diagnostic (ICD-10-PCS; 2021-08-30)
PROC: 0DBH8ZX Excision of Cecum, Via Natural or Artificial Opening Endoscopic, Diagnostic (ICD-10-PCS; principal; 2021-08-30 08:15)
DX: Z12.11 Encounter for screening for malignant neoplasm of colon (principal); D12.2 Benign neoplasm of ascending colon; D12.0 Benign neoplasm of cecum; D12.4 Benign neoplasm of descending colon; D12.3 Benign neoplasm of transverse colon; K57.30 Diverticulosis of large intestine without perforation or abscess without bleeding; K21.9 Gastro-esophageal reflux disease without esophagitis; K75.4 Autoimmune hepatitis; G47.30 Sleep apnea, unspecified; Z87.19 Personal history of other diseases of the digestive system; N18.9 Chronic kidney disease, unspecified; Z87.442 Personal history of urinary calculi; Z87.81 Personal history of (healed) traumatic fracture; Z90.711 Acquired absence of uterus with remaining cervical stump
CPT/HCPCS: 36415; 82310; 83970; 99153; G0500; J0690; J2250; J3010; J7121

== ENCOUNTER 2022-02-24 17:34 | Emergency (ER) | payer MEDICARE, OTHER ==
[~2022-02-24] VITALS: Ht 157.5 cm; Wt 79.4 kg
== END 2022-02-24 23:09 | disposition home or self-care (01) ==
LOC: ED 17:34
DX: R11.2 Nausea with vomiting, unspecified (principal); R19.7 Diarrhea, unspecified; B34.9 Viral infection, unspecified; Z88.1 Allergy status to other antibiotic agents; Z79.899 Other long term (current) drug therapy; Z20.822 Contact with and (suspected) exposure to COVID-19
CPT/HCPCS: 36415; 71045; 80053; 85025; 87502; 87880; A9270; J7030; U0003

== ENCOUNTER 2023-12-17 14:02 | Emergency (ER) | payer OTHER, MEDICARE ==
[~2023-12-17] VITALS: Ht 157.5 cm; Wt 84.3 kg
[2023-12-17] MEDS ORDERED: ACETAMINOPHEN 500 MG TAB PO ONE (17:15)
[2023-12-17] MEDS ORDERED: LIDOCAINE HCL 4% 1 EACH PATCH TD ONE (17:15)
[2023-12-17] MEDS ORDERED: VITAMIN C100 MG PO (17:26)
[2023-12-17] MEDS ORDERED: MAGNESIUM100 MG PO (17:26)
[2023-12-17] MEDS ORDERED: LIDODERM1 EACH TOP (18:02)
[2023-12-17 18:44] VITALS: BP 176/95
[2023-12-17] MEDS ORDERED: LIDOCAINE PATCH REMOVAL 1 EA TD SCH (21:00)
== END 2023-12-17 18:45 | disposition home or self-care (01) ==
LOC: ED 14:02
DX: S29.9XXA Unspecified injury of thorax, initial encounter (principal); W19.XXXA Unspecified fall, initial encounter; Z79.899 Other long term (current) drug therapy; Z88.1 Allergy status to other antibiotic agents
CPT/HCPCS: 71250; 99283-25; A9270

== ENCOUNTER 2024-09-10 10:35 | Emergency (ER) | payer MEDICARE, OTHER ==
[~2024-09-10] VITALS: Ht 157.5 cm; Wt 82.7 kg
[~2024-09-10 10:35] MED LIST changes: +LIDODERM1 EACH TOP; +MAGNESIUM100 MG PO; +VITAMIN C100 MG PO
--- OUTSIDE RECORDS SUMMARY | 2024-09-10 10:43 | XMS ---
PreManage Notification: DALIA SPRINGER Security Client Specialist Events No recent Security Events currently on file CRITERIA MET - [facility] - 2 Visits in 30 Days CARE PROVIDERS LYNDSEY GONZALEZ Family [facility] 01/28/2021-Current PHONE: Unknown Benjamín has no Care Guidelines for this patient. Sudarshan VISIT COUNT (12 MO.) [address] TOTAL 3 NOTE: Visits indicate total known visits. ED/UCC VISIT TRACKING (12 MO.) 09/10/2024 10:36 [facility] TYPE: Emergency COMPLAINT: - FLANK PAIN 09/06/2024 13:06 [facility] OR TYPE: Emergency DIAGNOSES: - Other specified soft tissue disorders - Pain in left foot - L FOOT PAIN 12/17/2023 14:02 [facility] TYPE: Emergency COMPLAINT: - RT SIDED PAIN DIAGNOSES: - Allergy status to other antibiotic agents - Other pen[facility]entiary (current) drug therapy - Right upper quadrant pain - Unspecified fall, initial encounter - Unspecified injury of thorax, initial encounter INPATIENT VISIT TRACKING (12 MO.) No inpatient visits to display in this time frame [email or web address]
[2024-09-10] MEDS ORDERED: KETOROLAC TROMETHAMINE 15 MG/ML VIAL IV ONE (11:00)
[2024-09-10] MEDS ORDERED: ondansetron HCL 4 MG/2 ML VIAL IV PRN (11:00)
[2024-09-10 11:21] LABS: BASOPHILS 0.8 % (0-2); BILIRUBIN, URINE NEGATIVE (negative); BLOOD/HGB, URINE MODERATE (Negative); EOSINOPHILS 0.8 % (0-6); HEMATOCRIT 43.7 % (35.0-50.0); HEMOGLOBIN 14.8 g/dL (12.0-18.0); KETONE, URINE NEGATIVE (Negative); LEUK ESTERASE, URINE NEGATIVE (negative); LYMPHOCYTES 11.4 % (24-44); MCH 31.1 (27-36); MCHC 33.8 g/dl (30-36); MONOCYTES 7.6 % (0-12); NEUTROPHILS 79.4 % (39-80); NITRITE, URINE NEGATIVE (negative); PLATELET COUNT 342 K/uL (140-440); RBC 4.75 M/ul (4.3-5.7)
[2024-09-10 11:29] LABS: BACTERIA, URINE NONE SEEN /hpf (negative); CASTS, URINE NONE SEEN \\lpf; COLLECTION TYPE, URINE CLEAN CATCH; CRYSTALS, URINE NONE SEEN (0-1+); EPITHELIAL CELLS, URINE SQUAMOUS 1+ /lpf (0-1+); RED BLOOD CELLS, URINE 21-40 /hpf (0-5); REFLEX CULTURE, URINE No (No)
[2024-09-10 11:37] LABS: ALBUMIN 3.4 g/dL (3.4-5.0); ALBUMIN/GLOBULIN RATIO 0.74 (1.1-2.4); ANION GAP 12.7 (7-21); BILIRUBIN, TOTAL 0.8 mg/dL (0.2-1.0); BUN/CREATININE RATIO 20.18 (6.0-28.6); CALCIUM 9.1 mg/dL (8.5-10.1); CREATININE, SERUM 1.09 mg/dL (0.55-1.02); POTASSIUM 3.7 mmol/L (3.5-5.1)
[2024-09-10] MEDS ORDERED: ZINC30 MG PO (11:37)
[2024-09-10] MEDS ORDERED: HYDROCODONE/ACETA 5/325 TAB PO ONE (14:00)
[2024-09-10] MEDS ORDERED: ONDANSETRON ODT4 MG PO (14:02)
[2024-09-10] MEDS ORDERED: FLOMAX0.4 MG PO (14:02)
[2024-09-10] MEDS ORDERED: HYDROCODON-ACE1 EA10 PO (14:02)
[2024-09-10 14:29] VITALS: BP 158/100
== END 2024-09-10 14:29 | disposition home or self-care (01) ==
LOC: ED 10:35
PROVIDERS: Emergency Medicine
DX: N13.2 Hydronephrosis with renal and ureteral calculous obstruction (principal); Z88.8 Allergy status to other drugs, medicaments and biological substances
CPT/HCPCS: 36415; 74176; 80053; 81001; 85025; 96374; 96375; 99284-25; J1885; J2405